=== PATIENT | male | born 1945 | race Caucasian/White ===

== ENCOUNTER 2016-09-19 10:16 | Emergency (ER) | payer MEDICARE, MEDICAID ==
[~2016-09-19 10:16] MED LIST: /FENO14TA PO; /FENO48TA OR; /GLIM4TA OR; /NITR4TASL SL; ACET-654 PO; ACET65TA OR; ALDA25TA2 OR; AMLO10TA OR; ASPI81TA83 OR; ATEN50TA2 OR; BACL-67 PO; BENA25TA4 PO; BISA10SU4 PR; BUTR5DIS2 TD; CARV3.12 PO; CIPR500T89 PO; CLOT1CRE6 TOP; COLA100C PO; CORE12.5 PO; CORE6.25 OR; COZA100T OR; DECADRON IV; DECADRON PO; DEXTPOW57 IV; DOC Q LACE PO; DOCU10ELUD PO; DRIS50002 PO; DULC10SU2 PR; DULC5TAB PO; Drisdol OR; ELIQ5TAB PO; FENO145T PO; FIBE625T PO; FISH OIL PO; FLEX10TA2 PO; FLUT1SPR2; FURO40TA2 OR; FURO80TA2 OR; GABA600T PO; GLUC1000 OR; GLUC1INJ2 SQ; GLUC40GE PO; HUMA100I3 SC; INFL10VL IV; INSUH10VL SC; INSUHUMDS SC; INSULADS SC; INSULANT SC; KEFL500C7 PO; KLOR1TAB73 PO; LASI40TA OR; LEVA250T PO; LEVI20TA39 PO; LORA10TA2 PO; LORT1ELX PO; LOSA50TA20 PO; MACR100C3 PO; MAG400TA PO; MAGN400T2 PO; MAGN400T5 PO; MAGN500C PO; MAGN500T2 OR; MAGNESIUM OXIDE PO; METF1000 PO; MEVA40TA PO; MIDAMOR PO; MILKSUS PO; MUCI600T34 PO; MULTCAP PO; NEUR600T PO; NITR0.4S SL; NITR4TASL SL; NORCOTAB PO; NORV5TAB OR; NORV5TAB PO; NOVOLOG100 MG/ML SC; NYST100024 TOP; OCEAN NASAL SPRAY; PENN1.5S2 TD; PRAV80TA2 PO; PRIL20CA OR; PROT1TAB2 PO; Remicade IV; SENO8.6T10 PO; SENO8.6T2 PO; SILD50TA OR; SLOWTAB OR; SPIR25TA2 OR; SPIR25TA2 PO; TEST100I IM; TYLE167L PO; TYLE325T5 PO; VESI10TA PO; VITA500047 PO; VITMTA PO; ZOFR20TA PO; ZOFR8TAB IV; [UNRECOGNIZED DRUG - CODE] PO; [UNRECOGNIZED DRUG - OTHER] IV; [UNRECOGNIZED DRUG - OTHER] OR; humalog SC
[2016-09-19 11:18] LABS: BASO % 0.2 % (0.0-1.0); EOS # 0.1 K/mm3 (0.0-0.50); LARGE UNSTAINED CELL # 0.1 K/mm3 (0.0-0.4); LARGE UNSTAINED CELL % 1.6 % (0.0-4.0); LYMPH # 1.6 K/mm3 (1.5-4.5); LYMPH % 20.8 % (24.0-44.0); MEAN CORPUSCULAR HEMOGLOBIN 29.5 pg (27.0-33.0); MEAN CORPUSCULAR HGB CONC 34.9 g/dl (32.0-36.5); MEAN CORPUSCULAR VOLUME 84.4 fl (80.0-96.0); MONO # 0.6 K/mm3 (0.0-0.8); MONO % 7.6 % (0.0-5.0); NEUTROPHILS # 5.2 K/mm3 (1.8-7.7); NEUTROPHILS % 68.8 % (36.0-66.0); PLATELET COUNT, AUTOMATED 245 k/mm3 (150-450); RED CELL DISTRIBUTION WIDTH 14.1 % (11.5-14.5); WHITE BLOOD COUNT 7.6 K/mm3 (4.0-10.0)
[2016-09-19 11:19] LABS: VENOUS BASE EXCESS -1.4 (-2.0-2.0); VENOUS O2 SATURATION 71.3 % (60.0-80.0); VENOUS PARTIAL PRESSURE CO2 50.1 mmHg (38.0-50.0); VENOUS PARTIAL PRESSURE O2 37.7 mmHg (30.0-50.0); VENOUS STANDARD HCO3 22.6 MEQ/L
[2016-09-19] MEDS ORDERED: ONDANSETRON 4MG/2ML VIAL (J2405) As Ordered ONE (11:25)
[2016-09-19 11:30] LABS: ALBUMIN 3.6 GM/DL (3.2-5.2); ALBUMIN/GLOBULIN RATIO 0.73 (1.00-1.93); BILIRUBIN,DIRECT 0.2 MG/DL (0.0-0.2); BILIRUBIN,TOTAL 0.5 MG/DL (0.2-1.0); CALCIUM LEVEL 9.7 MG/DL (8.8-10.2); CREATININE FOR GFR 1.41 MG/DL (0.70-1.30); GLOMERULAR FILTRATION RATE 52.9 (>42); POTASSIUM SERUM 3.9 MEQ/L (3.5-5.1); TOTAL PROTEIN 8.5 GM/DL (6.4-8.2)
--- NOTE | 2016-09-19 15:19 | EDDOCDS ---
Nurse's Notes [facility] Name: Calos Camacho Age: 70 yrs Sex: Male : 1945 Arrival Date: 09/19/2016 Time: 10:16 Bed 18 Private MD: Diagnosis: Other viral enteritis;Chronic kidney disease, stage 3 (moderate);Chronic atrial fibrillation Presentation: 09/19 10:24 Presenting complaint: EMS states: Nausea and vomiting for two days, daughter reports ck1 intermittent confusion. Adult Sepsis Screening: Patient has new or worsening altered mentation (1 point). Patient's respiratory rate is less than 22. Systolic blood pressure is greater than 100. Patient has a qSOFA score of 1- Negative Sepsis Screen. Suicide/Homicide risk assessment- the patient denies having any suicidal and/or homicidal ideations and does not present with any other emotional, behavioral or mental health complaints. Status: Patient is not a service line coordinator or dependent. Transition of care: patient was not received from another setting of care. 10:24 Acuity: GENIE Level 3 ck1 10:24 Method Of Arrival: Ambulance ck1 10:25 Care prior to arrival: Glucose check. 107. ck1 Triage Assessment: 10:34 General: Appears in no apparent distress, comfortable, Behavior is appropriate for age, ck1 cooperative. Pain: Location: abdomen Pain currently is 4 out of 10 on a pain scale. Quality of pain is described as crampy. Neurological: Level of Consciousness is awake, alert, obeys commands, Oriented to person, place, time. Respiratory: Respiratory effort is unlabored, Respiratory pattern is regular, symmetrical. GI: Abdomen is non- distended Reports nausea, vomiting. : Suprapubic catheter in place to gravity drainage Urine is cloudy. Derm: Skin is pink, warm & dry. Historical: - Allergies: SOO INHIBITORS (Hives); Carisoprodol ("didn't work, I got sick"); Hydrochlorothiazide (Unknown); Morphine (Hives); SULFA (SULFONAMIDES) (Hives); Adhesives; - Home Meds: 1. Eliquis 5 mg oral tab 1 tab 2 times per day 2. baclofen 20 mg Oral tab 1 tab 3 times per day 3. bisacodyl 10 mg Rectal supp 1 suppository four times weekly, Tues, Thurs, Sat, Sun 4. Dulcolax (bisacodyl) 5 mg Oral TbEC 1 tab once daily PRN 5. Coreg 3.125 mg Oral tab 1 tab 2 times per day 6. clotrimazole 1 % Topical crea 2 times per day to groin area 7. Doc-Q-Lace 100 mg oral cap 1 cap 2 times per day as needed 8. fenofibrate 150 mg oral cap 1 cap once daily 9. fluticasone 50 mcg/actuation nasal spsn 1 spray once daily 10. gabapentin 600 mg Oral tab 1 tab 3 times per day 11. Lantus 100 unit/mL Sub-Q soln 44 unit nightly 12. Lantus 100 unit/mL Sub-Q soln 39 unit daily 13. Humalog 100 unit/mL Sub-Q soln three times a day sliding scale 14. loratadine 10 mg Oral TbDL 1 tab once daily 15. magnesium oxide 400 mg Oral tab 800 mg twice a day 16. multivitamin Oral tab 1 tablet daily 17. Nitrostat 0.4 mg SL subl 1 tab every 5 minutes as needed 18. nystatin 100,000 unit/gram Topical powd 2 times per day 19. solifenacin 10 mg oral tab 1 tab once daily 20. spironolactone 25 mg Oral tab 1 tab once daily 21. Vitamin D [place] [address]78 unit weekly on Sundays - PMHx: Atrial Fib; Constipation, Chronic; Diabetes - IDDM: controlled; Hypercholesterolemia; Paraplegia, traumatic; Sleep Apnea w/ CPAP; spinal cord injury; Supraventricular Tachycardia; - PSHx: Back Surgery; Hernia repair; supra pubic catheter insertion; KNEE ARTHROSCOPY; Colon Resection; Hip Arthroplasty, Right; - The history from nurses notes was reviewed: and I agree with what is documented. - Social history: Smoking status: Patient states was never smoker of tobacco. No barriers to communication noted, The patient speaks fluent German, Speaks appropriately for age. - Family history: Not pertinent. - : The pt / caregiver states he / she is on anticoagulants: Eliquis Home medication list is obtained from a discharge med list. - Exposure Risk Screening:: None identified. - Immunization history:: All immunizations up-to-date. - Social history:: the patient is a non-smoker, the patient does not drink alcohol. Screenin:33 Screening information is obtained from the patient. Fall risk: At risk due to gait ck1 disturbance, The following interventions are performed due to a positive Fall Risk Screen: Fall Risk is added to Special Handling on the patient Summary Screen. A Fall Risk Bracelet was applied to the patient. Side Rails are placed in the up position. A Call Fenton is given with instruction to call for help when getting out of bed. Fall Alert bracelet is placed on the patient. Assistance ADL's: Requires assistance with meal preparation, this assistance is provided by family members, bathing, assistance is provided by family members, dressing, assistance is provided by family members, toileting, assistance is provided by family members, ambulation, assistance is provided by family members, housework, assistance is provided by family members, medication administration, assistance is provided by family members. Abuse/DV Screen: The patient / caregiver reports he/she is: not in a situation that causes fear, pain or injury. Nutritional screening: No deficits noted. Advance Directives: Currently, there is a health care proxy, Priscilla Llamas (dtr). home support is adequate. Assessment: 10:35 General: see triage note. ck1 11:30 General: Appears in no apparent distress, comfortable, Behavior is appropriate for age, ck1 cooperative. Pain: Location: abdomen Pain currently is 4 out of 10 on a pain scale. Quality of pain is described as crampy. Neurological: Level of Consciousness is awake, alert, obeys commands, Oriented to person, place, time. Respiratory: Respiratory effort is unlabored, Respiratory pattern is regular, symmetrical. GI: Abdomen is non- distended Bowel sounds present X 4 quads. Abd is soft and non tender X 4 quads. : Suprapubic catheter in place to gravity drainage Urine is cloudy. Derm: Skin is pink, warm & dry. 12:26 Reassessment: Patient appears in no apparent distress at this time. ck1 13:44 General: Appears in no apparent distress, comfortable, Behavior is appropriate for age, ms18 cooperative, pleasant. General: Pt in no acute distress. Family at bedside. Will continue to monitor pt. Pain: Denies pain. Neurological: Level of Consciousness is awake, alert, obeys commands. Respiratory: Airway is patent Respiratory effort is even, unlabored. Derm: Skin is pink, warm & dry. 14:44 Reassessment: Patient appears in no apparent distress at this time. ck1 15:02 General: Appears in no apparent distress, comfortable, Behavior is appropriate for age, ck1 cooperative. Pain: Location: abdomen Pain currently is 3 out of 10 on a pain scale. Quality of pain is described as tender. Neurological: Level of Consciousness is awake, alert, obeys commands, Oriented to person, place, time. Respiratory: Respiratory effort is unlabored, Respiratory pattern is regular, symmetrical. GI: Denies nausea, vomiting. Derm: Skin is pink, warm & dry. Vital Signs: 10:22 BP 194 / 88 (auto/); ck1 10:22 BP 194 / 88 (auto/); ck1 10:23 BP 184 / 86 (auto/); ck1 10:33 BP 194 / 88; Pulse 67; Resp 18; Temp 98.3(O); Pulse Ox 97% on R/A; Weight 109.32 kg ck1 (R); Height 5 ft. 6 in. (167.64 cm) (R); Pain 3/10; 11:20 Pulse 62 MON; Pulse Ox 98% ; ck1 11:21 Pulse 78 MON; Pulse Ox 96% ; ck1 11:21 Pulse 78 MON; Pulse Ox 96% ; ck1 11:22 BP 166 / 81 (auto/); ck1 11:22 Pulse 74 MON; Pulse Ox 96% ; ck1 11:52 Pulse 66 MON; Pulse Ox 96% ; ck1 11:53 BP 176 / 85 (auto/); ck1 11:53 Pulse 68 MON; Pulse Ox 95% ; ck1 11:53 BP 176 / 85 (auto/); ck1 12:23 BP 148 / 70 (auto/); ck1 12:23 Pulse 70 MON; Pulse Ox 96% ; ck1 12:53 BP 161 / 72 (auto/); ck1 12:53 Pulse 80 MON; Pulse Ox 95% ; ck1 13:07 BP 166 / 78 (auto/); ck1 13:07 Pulse 96 MON; Pulse Ox 96% ; ck1 13:08 BP 186 / 82 (auto/); ck1 13:08 Pulse 96 MON; Pulse Ox 96% ; ck1 13:10 BP 166 / 78 Supine; Pulse 99; ck1 13:10 BP 186 / 82 Sitting; Pulse 96; ck1 13:23 BP 162 / 80 (auto/); ms18 13:38 Pulse 80 MON; Pulse Ox 96% ; ms18 13:53 Pulse 88 MON; Pulse Ox 95% ; ck1 13:53 BP 165 / 72 (auto/); ck1 14:23 BP 167 / 77 (auto/); ck1 14:23 Pulse 82 MON; Pulse Ox 95% ; ck1 15:03 BP 183 / 82; Pulse 101; Resp 18; Temp 96.6(O); Pulse Ox 95% on R/A; Pain 3/10; ck1 10:33 Body Mass Index 38.90 (109.32 kg, 167.64 cm) ck1 Vitals: 10:33 Log In Time N/A - ambulance arrival. ck1 ED Course: 10:17 Patient visited by Louann Pineda, Plate Straightener. deg 10:17 Yesenia Whitaker,RN is Primary Nurse. deg 10:17 Gina Sorenson,RN is Primary Nurse. deg 10:17 Patient moved to Waiting deg 10:17 Patient moved to 18 deg 10:25 Triage Initiated ck1 10:34 The patient / caregiver is instructed regarding the plan of care and ED course. ck1 10:52 Patient visited by Gina Sorenson RN. ck1 10:52 Inserted saline lock: 20 gauge in left antecubital area and blood collected. The ck1 patient tolerated the procedure well. 10:59 Shemar Plascencia MD is Attending Physician. pc 11:10 Patient visited by Shemar Plascencia MD. pc 11:14 CBC with Diff Sent. ck1 11:14 MED Profile Sent. ck1 11:14 Liver Profile Sent. ck1 11:14 Lipase Sent. ck1 11:29 Patient visited by Gina Sorenson RN. ck1 11:56 Patient visited by Gina Sorenson,DANNA. ck1 12:21 [facility] Payment Agreement was scanned into [employer] and attached to record. jp5 12:24 Patient visited by Gina Sorenson RN. ck1 12:57 Patient visited by Gina Sorenson RN. ck1 13:09 Patient visited by Gina Sorenson RN. ck1 13:44 Patient visited by Jennifer Whitaker RN. ms18 14:30 Maliha Tiwari PA-C is Referral Physician. pc 15:01 Discontinued lock intact, bleeding controlled, pressure dressing applied, No ck1 redness/swelling at site. No procedures done that require assistance. Administered Medications: 11:29 Drug: Ondansetron 4 mg [ondansetron HCl 2 mg/mL intravenous solution (2 mL)] Route: ck1 IVP; Site: left antecubital; 11:30 Drug: NS 0.9% 1000 ml [sodium chloride 0.9 % intravenous solution] Route: IV; Rate: ck1 bolus; Site: left antecubital; 13:09 Follow up: IV Status: Completed infusion ck1 Order Results: Lab Order: CBC with Diff; SPEC'M 09/19/16 10:48 Test: WHITE BLOOD COUNT; Value: 7.6; Range: 4.0-10.0; Units: K/mm3; Status: F Test: RED BLOOD COUNT; Value: 5.90; Range: 4.30-6.10; Units: M/mm3; Status: F Test: HEMOGLOBIN; Value: 17.4; Range: 14.0-18.0; Units: g/dl; Status: F Test: HEMATOCRIT; Value: 49.8; Range: 42.0-52.0; Units: %; Status: F Test: MEAN CORPUSCULAR VOLUME; Value: 84.4; Range: 80.0-96.0; Units: fl; Status: F Test: MEAN CORPUSCULAR HEMOGLOBIN; Value: 29.5; Range: 27.0-33.0; Units: pg; Status: F Test: MEAN CORPUSCULAR HGB CONC; Value: 34.9; Range: 32.0-36.5; Units: g/dl; Status: F Test: RED CELL DISTRIBUTION WIDTH; Value: 14.1; Range: 11.5-14.5; Units: %; Status: F Test: PLATELET COUNT, AUTOMATED; Value: 245; Range: 150-450; Units: k/mm3; Status: F Test: NEUTROPHILS %; Value: 68.8; Range: 36.0-66.0; Abnormal: Above high normal; Units: %; Status: F Test: LYMPH %; Value: 20.8; Range: 24.0-44.0; Abnormal: Below low normal; Units: %; Status: F Test: MONO %; Value: 7.6; Range: 0.0-5.0; Abnormal: Above high normal; Units: %; Status: F Test: EOS %; Value: 1.0; Range: 0.0-3.0; Units: %; Status: F Test: BASO %; Value: 0.2; Range: 0.0-1.0; Units: %; Status: F Test: LARGE UNSTAINED CELL %; Value: 1.6; Range: 0.0-4.0; Units: %; Status: F Test: NEUTROPHILS #; Value: 5.2; Range: 1.8-7.7; Units: K/mm3; Status: F Test: LYMPH #; Value: 1.6; Range: 1.5-4.5; Units: K/mm3; Status: F Test: MONO #; Value: 0.6; Range: 0.0-0.8; Units: K/mm3; Status: F Test: EOS #; Value: 0.1; Range: 0.0-0.50; Units: K/mm3; Status: F Test: BASO #; Value: 0.0; Range: 0.0-0.2; Units: K/mm3; Status: F Test: LARGE UNSTAINED CELL #; Value: 0.1; Range: 0.0-0.4; Units: K/mm3; Status: F Lab Order: MED Profile; SPEC'M 09/19/16 10:48 Test: GLUCOSE, FASTING; Value: 134; Range: 83-110; Abnormal: Above high normal; Units: MG/DL; Status: F Test: BLOOD UREA NITROGEN; Value: 25; Range: 7-18; Abnormal: Above high normal; Units: MG/DL; Status: F Test: CREATININE FOR GFR; Value: 1.41; Range: 0.70-1.30; Abnormal: Above high normal; Units: MG/DL; Status: F Test: GLOMERULAR FILTRATION RATE; Value: 52.9; Range: >42; Status: F Test: SODIUM LEVEL; Value: 132; Range: 136-145; Abnormal: Below low normal; Units: MEQ/L; Status: F Test: POTASSIUM SERUM; Value: 3.9; Range: 3.5-5.1; Units: MEQ/L; Status: F Test: CHLORIDE LEVEL; Value: 94; Range: 98-107; Abnormal: Below low normal; Units: MEQ/L; Status: F Test: CARBON DIOXIDE LEVEL; Value: 29; Range: 21-32; Units: MEQ/L; Status: F Test: ANION GAP; Value: 9; Range: 8-16; Units: MEQ/L; Status: F Test: CALCIUM LEVEL; Value: 9.7; Range: 8.8-10.2; Units: MG/DL; Status: F Test Note: ; Units are mL/min/1.73 m2 Chronic Kidney Disease Staging per NKF: Stage I & II GFR >=60 Normal to Mildly Decreased Stage III GFR 30-59 Moderately Decreased Stage IV GFR 15-29 Severely Decreased Stage V GFR <15 Very Little GFR Left ESRD GFR <15 on COMMERCIAL [employer]IST Lab Order: Liver Profile; SPEC'09/19/16 10:48 Test: AST/SGOT; Value: 24; Range: 15-37; Units: U/L; Status: F Test: ALT/SGPT; Value: 26; Range: 12-78; Units: U/L; Status: F Test: ALKALINE PHOSPHATASE; Value: 96; Range: 45-117; Units: U/L; Status: F Test: BILIRUBIN,TOTAL; Value: 0.5; Range: 0.2-1.0; Units: MG/DL; Status: F Test: BILIRUBIN,DIRECT; Value: 0.2; Range: 0.0-0.2; Units: MG/DL; Status: F Test: TOTAL PROTEIN; Value: 8.5; Range: 6.4-8.2; Abnormal: Above high normal; Units: GM/DL; Status: F Test: ALBUMIN; Value: 3.6; Range: 3.2-5.2; Units: GM/DL; Status: F Test: ALBUMIN/GLOBULIN RATIO; Value: 0.73; Range: 1.00-1.93; Abnormal: Below low normal; Status: F Lab Order: Lipase; SPEC09/19/16 10:48 Test: LIPASE; Value: 131; Range: 73-393; Units: U/L; Status: F Lab Order: Venous Blood Gas (large pea green tube on ice); SPEC'M 01/15/17 10:48 Test: VENOUS PH; Value: 7.324; Range: 7.330-7.430; Abnormal: Below low normal; Units: UNITS; Status: F Test: VENOUS PARTIAL PRESSURE CO2; Value: 50.1; Range: 38.0-50.0; Abnormal: Above high normal; Units: mmHg; Status: F Test: VENOUS PARTIAL PRESSURE O2; Value: 37.7; Range: 30.0-50.0; Units: mmHg; Status: F Test: VENOUS TOTAL CO2; Value: 27.0; Range: 24.0-28.0; Units: MEQ/L; Status: F Test: VENOUS HCO3; Value: 25.5; Range: 23.0-27.0; Units: MEQ/L; Status: F Test: VENOUS BASE EXCESS; Value: -1.4; Range: -2.0-2.0; Status: F Test: VENOUS STANDARD HCO3; Value: 22.6; Units: MEQ/L; Status: F Test: VENOUS O2 SATURATION; Value: 71.3; Range: 60.0-80.0; Units: %; Status: F Outcome: 14:30 Discharge ordered by Provider. 15:02 Discharge Assessment: Patient awake, alert and oriented x 3. No cognitive and/or ck1 functional deficits noted. Patient verbalized understanding of disposition instructions. patient administered narcotics - no. The following High Risk Discharge criteria are identified: None. Discharged to home with family, via [facility]. Condition: stable. Discharge instructions given to patient, Instructed on discharge instructions, follow up and referral plans. medication usage, Demonstrated understanding of instructions, medications, Pt was receptive of discharge instructions/ teaching. Prescriptions given X 1. No special radiology studies were completed. Property :Personal belongings accompany Pt. 15:18 Patient left the ED. ck1 Signatures: Shemar Plascencia MD MD pc Murray, Denise, Plate Straightener Unit deg Gina SorensonRN RN ck1 Jennifer Whitaker RN RN ms18 Radha Curiel 5 MTDD
--- NOTE | 2016-09-19 15:19 | EDDOCDS ---
Physician Documentation [facility] Name: Calos Camacho Age: 70 yrs Sex: Male : 1945 Arrival Date: 09/19/2016 Time: 10:16 Bed 18 Private MD: Disposition: 09/19 14:27 Critical Care: Critical care not applicable. pc Disposition: 09/19/16 14:30 Discharged to Home/Self Care. Impression: Other viral enteritis, Chronic kidney disease, stage 3 (moderate), Chronic atrial fibrillation. - Condition is Stable. - Discharge Instructions: Clear Liquid Diet, Viral Gastroenteritis. - Prescriptions for ZOFRAN ODT 4 mg - dissolve 1 tablet by ORAL route 4 times per day As needed do not chew, do not swallow whole; 10 tablet. - Medication Reconciliation, Local Pharmacy Hours form. - Follow up: Maliha Tiwari PA-C; When: 2 - 3 days; Reason: Recheck today's complaints, Continuance of care. - Problem is new. - Symptoms have improved. HPI: 12:32 This 70 yrs old Male presents to ER via Ambulance with complaints of pc Abdominal Pain. 12:32 The history is obtained from the patient, the patient's family/friend. The patient pc presents with abdominal pain, vomiting. The symptoms began suddenly 3 days ago. There have been multiple episodes. He developed nausea and vomiting with abdominal cramping 3 days ago and has been unable to tolerate any fluids and has been vomiting up his pills. He was too weak to stand to transfer this morning and has been confused at times, per his daughter. He has not had any fevers or chills, diarrhea or constipation, Resp or symptoms. The patient has experienced similar episodes in the past, a few times. The patient has been recently been admitted at [facility], was discharged last month, for a UTI. Historical: - Allergies: SOO INHIBITORS (Hives); Carisoprodol ("didn't work, I got sick"); Hydrochlorothiazide (Unknown); Morphine (Hives); SULFA (SULFONAMIDES) (Hives); Adhesives; - Home Meds: 1. Eliquis 5 mg oral tab 1 tab 2 times per day 2. baclofen 20 mg Oral tab 1 tab 3 times per day 3. bisacodyl 10 mg Rectal supp 1 suppository four times weekly, Tues, Thurs, Sat, Sun 4. Dulcolax (bisacodyl) 5 mg Oral TbEC 1 tab once daily PRN 5. Coreg 3.125 mg Oral tab 1 tab 2 times per day 6. clotrimazole 1 % Topical crea 2 times per day to groin area 7. Doc-Q-Lace 100 mg oral cap 1 cap 2 times per day as needed 8. fenofibrate 150 mg oral cap 1 cap once daily 9. fluticasone 50 mcg/actuation nasal spsn 1 spray once daily 10. gabapentin 600 mg Oral tab 1 tab 3 times per day 11. Lantus 100 unit/mL Sub-Q soln 44 unit nightly 12. Lantus 100 unit/mL Sub-Q soln 39 unit daily 13. Humalog 100 unit/mL Sub-Q soln three times a day sliding scale 14. loratadine 10 mg Oral TbDL 1 tab once daily 15. magnesium oxide 400 mg Oral tab 800 mg twice a day 16. multivitamin Oral tab 1 tablet daily 17. Nitrostat 0.4 mg SL subl 1 tab every 5 minutes as needed 18. nystatin 100,000 unit/gram Topical powd 2 times per day 19. solifenacin 10 mg oral tab 1 tab once daily 20. spironolactone 25 mg Oral tab 1 tab once daily 21. Vitamin D Oral [address]1976 unit weekly on Sundays - PMHx: Atrial Fib; Constipation, Chronic; Diabetes - IDDM: controlled; Hypercholesterolemia; Paraplegia, traumatic; Sleep Apnea w/ CPAP; spinal cord injury; Supraventricular Tachycardia; - PSHx: Back Surgery; Hernia repair; supra pubic catheter insertion; KNEE ARTHROSCOPY; Colon Resection; Hip Arthroplasty, Right; - The history from nurses notes was reviewed: and I agree with what is documented. - Social history: Smoking status: Patient states was never smoker of tobacco. No barriers to communication noted, The patient speaks fluent Luxembourgish, Speaks appropriately for age. - Family history: Not pertinent. - : The pt / caregiver states he / she is on anticoagulants: Eliquis Home medication list is obtained from a discharge med list. - Exposure Risk Screening:: None identified. - Immunization history:: All immunizations up-to-date. - Social history:: the patient is a non-smoker, the patient does not drink alcohol. ROS: 12:32 All systems are negative except if listed. The constitutional, cardiovascular, pc respiratory and neurological components are also addressed in the HPI. Exam: 12:32 General Appearance: alert, no acute distress. pc 12:32 ENT: ear, nose and throat normal, Dry muc. membranes 12:32 Neck: The exam reveals no acute abnormalities. ROM is normal and painless. No nuchal rigidity is noted.. 12:32 Respiratory: no respiratory distress, normal breath sounds, chest non-tender. 12:32 Cardiovascular: regular pulse rate, regular heart rhythm, normal heart sounds, equal and full pulses bilaterally. 12:32 Abdomen: soft, non-tender, no organomegaly, normal bowel sounds. 12:32 Back: normal inspection. 12:32 Skin: skin color is normal, warm, dry. 12:32 Extremities: The extremities have a grossly normal appearance, are non-tender, without acute ROM abnormalities. 12:32 Neuro: oriented x 3, cranial nerves normal as tested. Vital Signs: 10:22 BP 194 / 88 (auto/); ck1 10:22 BP 194 / 88 (auto/); ck1 10:23 BP 184 / 86 (auto/); ck1 10:33 BP 194 / 88; Pulse 67; Resp 18; Temp 98.3(O); Pulse Ox 97% on R/A; Weight 109.32 kg / ck1 241.01 lbs (R); Height 5 ft. 6 in. (167.64 cm) (R); Pain 3/10; 11:20 Pulse 62 MON; Pulse Ox 98% ; ck1 11:21 Pulse 78 MON; Pulse Ox 96% ; ck1 11:21 Pulse 78 MON; Pulse Ox 96% ; ck1 11:22 BP 166 / 81 (auto/); ck1 11:22 Pulse 74 MON; Pulse Ox 96% ; ck1 11:52 Pulse 66 MON; Pulse Ox 96% ; ck1 11:53 BP 176 / 85 (auto/); ck1 11:53 Pulse 68 MON; Pulse Ox 95% ; ck1 11:53 BP 176 / 85 (auto/); ck1 12:23 BP 148 / 70 (auto/); ck1 12:23 Pulse 70 MON; Pulse Ox 96% ; ck1 12:53 BP 161 / 72 (auto/); ck1 12:53 Pulse 80 MON; Pulse Ox 95% ; ck1 13:07 BP 166 / 78 (auto/); ck1 13:07 Pulse 96 MON; Pulse Ox 96% ; ck1 13:08 BP 186 / 82 (auto/); ck1 13:08 Pulse 96 MON; Pulse Ox 96% ; ck1 13:10 BP 166 / 78 Supine; Pulse 99; ck1 13:10 BP 186 / 82 Sitting; Pulse 96; ck1 13:23 BP 162 / 80 (auto/); ms18 13:38 Pulse 80 MON; Pulse Ox 96% ; ms18 13:53 Pulse 88 MON; Pulse Ox 95% ; ck1 13:53 BP 165 / 72 (auto/); ck1 14:23 BP 167 / 77 (auto/); ck1 14:23 Pulse 82 MON; Pulse Ox 95% ; ck1 15:03 BP 183 / 82; Pulse 101; Resp 18; Temp 96.6(O); Pulse Ox 95% on R/A; Pain 3/10; ck1 10:33 Body Mass Index 38.90 (109.32 kg, 167.64 cm) ck1 MDM: 11:11 IV Saline Lock ordered. pc 11:11 Fueler/Pulse Ox/q 30 min VS ordered. pc 11:12 CBC with Diff Ordered. EDMS 11:12 MED Profile Ordered. EDMS 11:12 Liver Profile Ordered. EDMS 11:12 Lipase Ordered. EDMS 11:12 Venous Blood Gas (large pea green tube on ice) Ordered. EDMS 11:16 NS 0.9% 1000 ml IV at bolus once ordered. pc 11:16 Ondansetron 4 mg IVP once ordered. pc 11:50 CBC with Diff Reviewed. pc 11:50 MED Profile Reviewed. pc 11:50 Liver Profile Reviewed. pc 11:50 Venous Blood Gas (large pea green tube on ice) Reviewed. pc 11:50 Lipase Reviewed. pc 11:50 Orthostatic VS ordered. pc 12:21 [facility] [place] [facility] Payment Agreement was scanned into [employer] and attached to record. jp5 12:21 Financial registration complete. jp5 12:32 Differential diagnosis: Gastroenteritis weakness. Plan: labs, IVF. pc 13:50 Urine Culture Ordered. EDMS 14:27 Data reviewed: old medical records, vital signs, nurses notes, lab test results. Test pc interpretation: LAB - all labs as ordered have been reviewed, interpreted and considered in the overall management of the clinical presentation;. The patient has been re-examined and re-evaluated. The patient's symptoms have markedly improved after treatment. Disposition: The historical points, examination findings, and any diagnostic results supporting the provided diagnosis, were discussed with the patient or legal guardian. The need for outpatient follow up with the provider listed on their discharge instructions was discussed. They were encouraged to return to [facility], or the nearest ED, if symptoms worsen/persist, or for any other questions/concerns. Administered Medications: 11:29 Drug: Ondansetron 4 mg [ondansetron HCl 2 mg/mL intravenous solution (2 mL)] Route: ck1 IVP; Site: left antecubital; 11:30 Drug: NS 0.9% 1000 ml [sodium chloride 0.9 % intravenous solution] Route: IV; Rate: ck1 bolus; Site: left antecubital; 13:09 Follow up: IV Status: Completed infusion ck1 Signatures: Dispatcher [employer] Shemar Powell MD MD pc Kim-Ashcraft, Connie, RN RN ck1 Radha Curiel jp5 The chart was reviewed and I authenticate all verbal orders and agree with the evaluation and treatment provided.Attachments: 12:21 [facility] Payment Agreement jp5 [email or web address]
--- NOTE | 2016-09-21 16:19 | EDDOCDS ---
Physician Documentation [facility] Name: Calos Camacho Age: 70 yrs Sex: Male : 1945 Arrival Date: 09/19/2016 Time: 10:16 Bed 18 Private MD: Disposition: 09/19 14:27 Critical Care: Critical care not applicable. pc Disposition: 09/19/16 14:30 Discharged to Home/Self Care. Impression: Other viral enteritis, Chronic kidney disease, stage 3 (moderate), Chronic atrial fibrillation. - Condition is Stable. - Discharge Instructions: Clear Liquid Diet, Viral Gastroenteritis. - Prescriptions for ZOFRAN ODT 4 mg - dissolve 1 tablet by ORAL route 4 times per day As needed do not chew, do not swallow whole; 10 tablet. - Medication Reconciliation, Local Pharmacy Hours form. - Follow up: Maliha Tiwari PA-C; When: 2 - 3 days; Reason: Recheck today's complaints, Continuance of care. - Problem is new. - Symptoms have improved. HPI: 12:32 This 70 yrs old Male presents to ER via Ambulance with complaints of pc Abdominal Pain. 12:32 The history is obtained from the patient, the patient's family/friend. The patient pc presents with abdominal pain, vomiting. The symptoms began suddenly 3 days ago. There have been multiple episodes. He developed nausea and vomiting with abdominal cramping 3 days ago and has been unable to tolerate any fluids and has been vomiting up his pills. He was too weak to stand to transfer this morning and has been confused at times, per his daughter. He has not had any fevers or chills, diarrhea or constipation, Resp or symptoms. The patient has experienced similar episodes in the past, a few times. The patient has been recently been admitted at [facility], was discharged last month, for a UTI. Historical: - Allergies: SOO INHIBITORS (Hives); Carisoprodol ("didn't work, I got sick"); Hydrochlorothiazide (Unknown); Morphine (Hives); SULFA (SULFONAMIDES) (Hives); Adhesives; - Home Meds: 1. Eliquis 5 mg oral tab 1 tab 2 times per day 2. baclofen 20 mg Oral tab 1 tab 3 times per day 3. bisacodyl 10 mg Rectal supp 1 suppository four times weekly, Tues, Thurs, Sat, Sun 4. Dulcolax (bisacodyl) 5 mg Oral TbEC 1 tab once daily PRN 5. Coreg 3.125 mg Oral tab 1 tab 2 times per day 6. clotrimazole 1 % Topical crea 2 times per day to groin area 7. Doc-Q-Lace 100 mg oral cap 1 cap 2 times per day as needed 8. fenofibrate 150 mg oral cap 1 cap once daily 9. fluticasone 50 mcg/actuation nasal spsn 1 spray once daily 10. gabapentin 600 mg Oral tab 1 tab 3 times per day 11. Lantus 100 unit/mL Sub-Q soln 44 unit nightly 12. Lantus 100 unit/mL Sub-Q soln 39 unit daily 13. Humalog 100 unit/mL Sub-Q soln three times a day sliding scale 14. loratadine 10 mg Oral TbDL 1 tab once daily 15. magnesium oxide 400 mg Oral tab 800 mg twice a day 16. multivitamin Oral tab 1 tablet daily 17. Nitrostat 0.4 mg SL subl 1 tab every 5 minutes as needed 18. nystatin 100,000 unit/gram Topical powd 2 times per day 19. solifenacin 10 mg oral tab 1 tab once daily 20. spironolactone 25 mg Oral tab 1 tab once daily 21. Vitamin D Oral 48731 unit weekly on Sundays - PMHx: Atrial Fib; Constipation, Chronic; Diabetes - IDDM: controlled; Hypercholesterolemia; Paraplegia, traumatic; Sleep Apnea w/ CPAP; spinal cord injury; Supraventricular Tachycardia; - PSHx: Back Surgery; Hernia repair; supra pubic catheter insertion; KNEE ARTHROSCOPY; Colon Resection; Hip Arthroplasty, Right; - The history from nurses notes was reviewed: and I agree with what is documented. - Social history: Smoking status: Patient states was never smoker of tobacco. No barriers to communication noted, The patient speaks fluent Swedish, Speaks appropriately for age. - Family history: Not pertinent. - : The pt / caregiver states he / she is on anticoagulants: Eliquis Home medication list is obtained from a discharge med list. - Exposure Risk Screening:: None identified. - Immunization history:: All immunizations up-to-date. - Social history:: the patient is a non-smoker, the patient does not drink alcohol. ROS: 12:32 All systems are negative except if listed. The constitutional, cardiovascular, pc respiratory and neurological components are also addressed in the HPI. Exam: 12:32 General Appearance: alert, no acute distress. pc 12:32 ENT: ear, nose and throat normal, Dry muc. membranes 12:32 Neck: The exam reveals no acute abnormalities. ROM is normal and painless. No nuchal rigidity is noted.. 12:32 Respiratory: no respiratory distress, normal breath sounds, chest non-tender. 12:32 Cardiovascular: regular pulse rate, regular heart rhythm, normal heart sounds, equal and full pulses bilaterally. 12:32 Abdomen: soft, non-tender, no organomegaly, normal bowel sounds. 12:32 Back: normal inspection. 12:32 Skin: skin color is normal, warm, dry. 12:32 Extremities: The extremities have a grossly normal appearance, are non-tender, without acute ROM abnormalities. 12:32 Neuro: oriented x 3, cranial nerves normal as tested. Vital Signs: 10:22 BP 194 / 88 (auto/); ck1 10:22 BP 194 / 88 (auto/); ck1 10:23 BP 184 / 86 (auto/); ck1 10:33 BP 194 / 88; Pulse 67; Resp 18; Temp 98.3(O); Pulse Ox 97% on R/A; Weight 109.32 kg / ck1 241.01 lbs (R); Height 5 ft. 6 in. (167.64 cm) (R); Pain 3/10; 11:20 Pulse 62 MON; Pulse Ox 98% ; ck1 11:21 Pulse 78 MON; Pulse Ox 96% ; ck1 11:21 Pulse 78 MON; Pulse Ox 96% ; ck1 11:22 BP 166 / 81 (auto/); ck1 11:22 Pulse 74 MON; Pulse Ox 96% ; ck1 11:52 Pulse 66 MON; Pulse Ox 96% ; ck1 11:53 BP 176 / 85 (auto/); ck1 11:53 Pulse 68 MON; Pulse Ox 95% ; ck1 11:53 BP 176 / 85 (auto/); ck1 12:23 BP 148 / 70 (auto/); ck1 12:23 Pulse 70 MON; Pulse Ox 96% ; ck1 12:53 BP 161 / 72 (auto/); ck1 12:53 Pulse 80 MON; Pulse Ox 95% ; ck1 13:07 BP 166 / 78 (auto/); ck1 13:07 Pulse 96 MON; Pulse Ox 96% ; ck1 13:08 BP 186 / 82 (auto/); ck1 13:08 Pulse 96 MON; Pulse Ox 96% ; ck1 13:10 BP 166 / 78 Supine; Pulse 99; ck1 13:10 BP 186 / 82 Sitting; Pulse 96; ck1 13:23 BP 162 / 80 (auto/); ms18 13:38 Pulse 80 MON; Pulse Ox 96% ; ms18 13:53 Pulse 88 MON; Pulse Ox 95% ; ck1 13:53 BP 165 / 72 (auto/); ck1 14:23 BP 167 / 77 (auto/); ck1 14:23 Pulse 82 MON; Pulse Ox 95% ; ck1 15:03 BP 183 / 82; Pulse 101; Resp 18; Temp 96.6(O); Pulse Ox 95% on R/A; Pain 3/10; ck1 10:33 Body Mass Index 38.90 (109.32 kg, 167.64 cm) ck1 MDM: 11:11 IV Saline Lock ordered. pc 11:11 Taxicab Driver/Pulse Ox/q 30 min VS ordered. pc 11:12 CBC with Diff Ordered. EDMS 11:12 MED Profile Ordered. EDMS 11:12 Liver Profile Ordered. EDMS 11:12 Lipase Ordered. EDMS 11:12 Venous Blood Gas (large pea green tube on ice) Ordered. EDMS 11:16 NS 0.9% 1000 ml IV at bolus once ordered. pc 11:16 Ondansetron 4 mg IVP once ordered. pc 11:50 CBC with Diff Reviewed. pc 11:50 MED Profile Reviewed. pc 11:50 Liver Profile Reviewed. pc 11:50 Venous Blood Gas (large pea green tube on ice) Reviewed. pc 11:50 Lipase Reviewed. pc 11:50 Orthostatic VS ordered. pc 12:21 [facility] Payment Agreement was scanned into [employer] and attached to record. jp5 12:21 Financial registration complete. jp5 12:32 Differential diagnosis: Gastroenteritis weakness. Plan: labs, IVF. pc 13:50 Urine Culture Ordered. EDMS 14:27 Data reviewed: old medical records, vital signs, nurses notes, lab test results. Test pc interpretation: LAB - all labs as ordered have been reviewed, interpreted and considered in the overall management of the clinical presentation;. The patient has been re-examined and re-evaluated. The patient's symptoms have markedly improved after treatment. Disposition: The historical points, examination findings, and any diagnostic results supporting the provided diagnosis, were discussed with the patient or legal guardian. The need for outpatient follow up with the provider listed on their discharge instructions was discussed. They were encouraged to return to [facility], or the nearest ED, if symptoms worsen/persist, or for any other questions/concerns. 09/20 14:31 PCR was scanned into [employer] and attached to record. gb Administered Medications: 09/19 11:29 Drug: Ondansetron 4 mg [ondansetron HCl 2 mg/mL intravenous solution (2 mL)] Route: ck1 IVP; Site: left antecubital; 11:30 Drug: NS 0.9% 1000 ml [sodium chloride 0.9 % intravenous solution] Route: IV; Rate: ck1 bolus; Site: left antecubital; 13:09 Follow up: IV Status: Completed infusion ck1 Signatures: Dispatcher MedC3 Metrics EDMS Shemar Plascencia MD MD pc Barnhardt, Gloria, Reg Reg Gina LomasRN RN ck1 Radha Curiel jp5 The chart was reviewed and I authenticate all verbal orders and agree with the evaluation and treatment provided.Attachments: 12:21 [facility] Payment Agreement jp5 Chart Complete MTDD
--- NOTE | 2016-09-21 16:19 | EDDOCDS ---
Physician Documentation [facility] Name: Calos Camacho Age: 70 yrs Sex: Male : 1945 Arrival Date: 09/19/2016 Time: 10:16 Bed 18 Private MD: Disposition: 09/19 14:27 Critical Care: Critical care not applicable. pc Disposition: 09/19/16 14:30 Discharged to Home/Self Care. Impression: Other viral enteritis, Chronic kidney disease, stage 3 (moderate), Chronic atrial fibrillation. - Condition is Stable. - Discharge Instructions: Clear Liquid Diet, Viral Gastroenteritis. - Prescriptions for ZOFRAN ODT 4 mg - dissolve 1 tablet by ORAL route 4 times per day As needed do not chew, do not swallow whole; 10 tablet. - Medication Reconciliation, Local Pharmacy Hours form. - Follow up: Maliha Tiwari PA-C; When: 2 - 3 days; Reason: Recheck today's complaints, Continuance of care. - Problem is new. - Symptoms have improved. HPI: 12:32 This 70 yrs old Male presents to ER via Ambulance with complaints of pc Abdominal Pain. 12:32 The history is obtained from the patient, the patient's family/friend. The patient pc presents with abdominal pain, vomiting. The symptoms began suddenly 3 days ago. There have been multiple episodes. He developed nausea and vomiting with abdominal cramping 3 days ago and has been unable to tolerate any fluids and has been vomiting up his pills. He was too weak to stand to transfer this morning and has been confused at times, per his daughter. He has not had any fevers or chills, diarrhea or constipation, Resp or symptoms. The patient has experienced similar episodes in the past, a few times. The patient has been recently been admitted at [facility], was discharged last month, for a UTI. Historical: - Allergies: SOO INHIBITORS (Hives); Carisoprodol ("didn't work, I got sick"); Hydrochlorothiazide (Unknown); Morphine (Hives); SULFA (SULFONAMIDES) (Hives); Adhesives; - Home Meds: 1. Eliquis 5 mg oral tab 1 tab 2 times per day 2. baclofen 20 mg Oral tab 1 tab 3 times per day 3. bisacodyl 10 mg Rectal supp 1 suppository four times weekly, Tues, Thurs, Sat, Sun 4. Dulcolax (bisacodyl) 5 mg Oral TbEC 1 tab once daily PRN 5. Coreg 3.125 mg Oral tab 1 tab 2 times per day 6. clotrimazole 1 % Topical crea 2 times per day to groin area 7. Doc-Q-Lace 100 mg oral cap 1 cap 2 times per day as needed 8. fenofibrate 150 mg oral cap 1 cap once daily 9. fluticasone 50 mcg/actuation nasal spsn 1 spray once daily 10. gabapentin 600 mg Oral tab 1 tab 3 times per day 11. Lantus 100 unit/mL Sub-Q soln 44 unit nightly 12. Lantus 100 unit/mL Sub-Q soln 39 unit daily 13. Humalog 100 unit/mL Sub-Q soln three times a day sliding scale 14. loratadine 10 mg Oral TbDL 1 tab once daily 15. magnesium oxide 400 mg Oral tab 800 mg twice a day 16. multivitamin Oral tab 1 tablet daily 17. Nitrostat 0.4 mg SL subl 1 tab every 5 minutes as needed 18. nystatin 100,000 unit/gram Topical powd 2 times per day 19. solifenacin 10 mg oral tab 1 tab once daily 20. spironolactone 25 mg Oral tab 1 tab once daily 21. Vitamin D Oral 10786 unit weekly on Sundays - PMHx: Atrial Fib; Constipation, Chronic; Diabetes - IDDM: controlled; Hypercholesterolemia; Paraplegia, traumatic; Sleep Apnea w/ CPAP; spinal cord injury; Supraventricular Tachycardia; - PSHx: Back Surgery; Hernia repair; supra pubic catheter insertion; KNEE ARTHROSCOPY; Colon Resection; Hip Arthroplasty, Right; - The history from nurses notes was reviewed: and I agree with what is documented. - Social history: Smoking status: Patient states was never smoker of tobacco. No barriers to communication noted, The patient speaks fluent Slovak, Speaks appropriately for age. - Family history: Not pertinent. - : The pt / caregiver states he / she is on anticoagulants: Eliquis Home medication list is obtained from a discharge med list. - Exposure Risk Screening:: None identified. - Immunization history:: All immunizations up-to-date. - Social history:: the patient is a non-smoker, the patient does not drink alcohol. ROS: 12:32 All systems are negative except if listed. The constitutional, cardiovascular, pc respiratory and neurological components are also addressed in the HPI. Exam: 12:32 General Appearance: alert, no acute distress. pc 12:32 ENT: ear, nose and throat normal, Dry muc. membranes 12:32 Neck: The exam reveals no acute abnormalities. ROM is normal and painless. No nuchal rigidity is noted.. 12:32 Respiratory: no respiratory distress, normal breath sounds, chest non-tender. 12:32 Cardiovascular: regular pulse rate, regular heart rhythm, normal heart sounds, equal and full pulses bilaterally. 12:32 Abdomen: soft, non-tender, no organomegaly, normal bowel sounds. 12:32 Back: normal inspection. 12:32 Skin: skin color is normal, warm, dry. 12:32 Extremities: The extremities have a grossly normal appearance, are non-tender, without acute ROM abnormalities. 12:32 Neuro: oriented x 3, cranial nerves normal as tested. Vital Signs: 10:22 BP 194 / 88 (auto/); ck1 10:22 BP 194 / 88 (auto/); ck1 10:23 BP 184 / 86 (auto/); ck1 10:33 BP 194 / 88; Pulse 67; Resp 18; Temp 98.3(O); Pulse Ox 97% on R/A; Weight 109.32 kg / ck1 241.01 lbs (R); Height 5 ft. 6 in. (167.64 cm) (R); Pain 3/10; 11:20 Pulse 62 MON; Pulse Ox 98% ; ck1 11:21 Pulse 78 MON; Pulse Ox 96% ; ck1 11:21 Pulse 78 MON; Pulse Ox 96% ; ck1 11:22 BP 166 / 81 (auto/); ck1 11:22 Pulse 74 MON; Pulse Ox 96% ; ck1 11:52 Pulse 66 MON; Pulse Ox 96% ; ck1 11:53 BP 176 / 85 (auto/); ck1 11:53 Pulse 68 MON; Pulse Ox 95% ; ck1 11:53 BP 176 / 85 (auto/); ck1 12:23 BP 148 / 70 (auto/); ck1 12:23 Pulse 70 MON; Pulse Ox 96% ; ck1 12:53 BP 161 / 72 (auto/); ck1 12:53 Pulse 80 MON; Pulse Ox 95% ; ck1 13:07 BP 166 / 78 (auto/); ck1 13:07 Pulse 96 MON; Pulse Ox 96% ; ck1 13:08 BP 186 / 82 (auto/); ck1 13:08 Pulse 96 MON; Pulse Ox 96% ; ck1 13:10 BP 166 / 78 Supine; Pulse 99; ck1 13:10 BP 186 / 82 Sitting; Pulse 96; ck1 13:23 BP 162 / 80 (auto/); ms18 13:38 Pulse 80 MON; Pulse Ox 96% ; ms18 13:53 Pulse 88 MON; Pulse Ox 95% ; ck1 13:53 BP 165 / 72 (auto/); ck1 14:23 BP 167 / 77 (auto/); ck1 14:23 Pulse 82 MON; Pulse Ox 95% ; ck1 15:03 BP 183 / 82; Pulse 101; Resp 18; Temp 96.6(O); Pulse Ox 95% on R/A; Pain 3/10; ck1 10:33 Body Mass Index 38.90 (109.32 kg, 167.64 cm) ck1 MDM: 11:11 IV Saline Lock ordered. pc 11:11 Byproducts Extractor/Pulse Ox/q 30 min VS ordered. pc 11:12 CBC with Diff Ordered. EDMS 11:12 MED Profile Ordered. EDMS 11:12 Liver Profile Ordered. EDMS 11:12 Lipase Ordered. EDMS 11:12 Venous Blood Gas (large pea green tube on ice) Ordered. EDMS 11:16 NS 0.9% 1000 ml IV at bolus once ordered. pc 11:16 Ondansetron 4 mg IVP once ordered. pc 11:50 CBC with Diff Reviewed. pc 11:50 MED Profile Reviewed. pc 11:50 Liver Profile Reviewed. pc 11:50 Venous Blood Gas (large pea green tube on ice) Reviewed. pc 11:50 Lipase Reviewed. pc 11:50 Orthostatic VS ordered. pc 12:21 [facility] Payment Agreement was scanned into [employer] and attached to record. jp5 12:21 Financial registration complete. jp5 12:32 Differential diagnosis: Gastroenteritis weakness. Plan: labs, IVF. pc 13:50 Urine Culture Ordered. EDMS 14:27 Data reviewed: old medical records, vital signs, nurses notes, lab test results. Test pc interpretation: LAB - all labs as ordered have been reviewed, interpreted and considered in the overall management of the clinical presentation;. The patient has been re-examined and re-evaluated. The patient's symptoms have markedly improved after treatment. Disposition: The historical points, examination findings, and any diagnostic results supporting the provided diagnosis, were discussed with the patient or legal guardian. The need for outpatient follow up with the provider listed on their discharge instructions was discussed. They were encouraged to return to [facility], or the nearest ED, if symptoms worsen/persist, or for any other questions/concerns. 09/20 14:31 PCR was scanned into [employer] and attached to record. gb Administered Medications: 09/19 11:29 Drug: Ondansetron 4 mg [ondansetron HCl 2 mg/mL intravenous solution (2 mL)] Route: ck1 IVP; Site: left antecubital; 11:30 Drug: NS 0.9% 1000 ml [sodium chloride 0.9 % intravenous solution] Route: IV; Rate: ck1 bolus; Site: left antecubital; 13:09 Follow up: IV Status: Completed infusion ck1 Signatures: Dispatcher MedConferensum EDMS Shemar Plsacencia MD MD pc Barnhardt, Gloria, Reg Reg Gina LomasRN RN ck1 Radha Curiel jp5 The chart was reviewed and I authenticate all verbal orders and agree with the evaluation and treatment provided.Attachments: 12:21 [facility] Payment Agreement jp5 Chart Complete MTDD
--- NOTE | 2016-09-21 16:19 | EDDOCDS ---
Nurse's Notes [facility] Name: Calos Camacho Age: 70 yrs Sex: Male : 1945 Arrival Date: 09/19/2016 Time: 10:16 Bed 18 Private MD: Diagnosis: Other viral enteritis;Chronic kidney disease, stage 3 (moderate);Chronic atrial fibrillation Presentation: 09/19 10:24 Presenting complaint: EMS states: Nausea and vomiting for two days, daughter reports ck1 intermittent confusion. Adult Sepsis Screening: Patient has new or worsening altered mentation (1 point). Patient's respiratory rate is less than 22. Systolic blood pressure is greater than 100. Patient has a qSOFA score of 1- Negative Sepsis Screen. Suicide/Homicide risk assessment- the patient denies having any suicidal and/or homicidal ideations and does not present with any other emotional, behavioral or mental health complaints. 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 Transition of care: patient was not received from another setting of care. 10:24 Acuity: GENIE Level 3 ck1 10:24 Method Of Arrival: Ambulance ck1 10:25 Care prior to arrival: Glucose check. 107. ck1 Triage Assessment: 10:34 General: Appears in no apparent distress, comfortable, Behavior is appropriate for age, ck1 cooperative. Pain: Location: abdomen Pain currently is 4 out of 10 on a pain scale. Quality of pain is described as crampy. Neurological: Level of Consciousness is awake, alert, obeys commands, Oriented to person, place, time. Respiratory: Respiratory effort is unlabored, Respiratory pattern is regular, symmetrical. GI: Abdomen is non- distended Reports nausea, vomiting. : Suprapubic catheter in place to gravity drainage Urine is cloudy. Derm: Skin is pink, warm & dry. Historical: - Allergies: SOO INHIBITORS (Hives); Carisoprodol ("didn't work, I got sick"); Hydrochlorothiazide (Unknown); Morphine (Hives); SULFA (SULFONAMIDES) (Hives); Adhesives; - Home Meds: 1. Eliquis 5 mg oral tab 1 tab 2 times per day 2. baclofen 20 mg Oral tab 1 tab 3 times per day 3. bisacodyl 10 mg Rectal supp 1 suppository four times weekly, Tues, Thurs, Sat, Sun 4. Dulcolax (bisacodyl) 5 mg Oral TbEC 1 tab once daily PRN 5. Coreg 3.125 mg Oral tab 1 tab 2 times per day 6. clotrimazole 1 % Topical crea 2 times per day to groin area 7. Doc-Q-Lace 100 mg oral cap 1 cap 2 times per day as needed 8. fenofibrate 150 mg oral cap 1 cap once daily 9. fluticasone 50 mcg/actuation nasal spsn 1 spray once daily 10. gabapentin 600 mg Oral tab 1 tab 3 times per day 11. Lantus 100 unit/mL Sub-Q soln 44 unit nightly 12. Lantus 100 unit/mL Sub-Q soln 39 unit daily 13. Humalog 100 unit/mL Sub-Q soln three times a day sliding scale 14. loratadine 10 mg Oral TbDL 1 tab once daily 15. magnesium oxide 400 mg Oral tab 800 mg twice a day 16. multivitamin Oral tab 1 tablet daily 17. Nitrostat 0.4 mg SL subl 1 tab every 5 minutes as needed 18. nystatin 100,000 unit/gram Topical powd 2 times per day 19. solifenacin 10 mg oral tab 1 tab once daily 20. spironolactone 25 mg Oral tab 1 tab once daily 21. Vitamin D Oral 64007 unit weekly on Sundays - PMHx: Atrial Fib; Constipation, Chronic; Diabetes - IDDM: controlled; Hypercholesterolemia; Paraplegia, traumatic; Sleep Apnea w/ CPAP; spinal cord injury; Supraventricular Tachycardia; - PSHx: Back Surgery; Hernia repair; supra pubic catheter insertion; KNEE ARTHROSCOPY; Colon Resection; Hip Arthroplasty, Right; - The history from nurses notes was reviewed: and I agree with what is documented. - Social history: Smoking status: Patient states was never smoker of tobacco. No barriers to communication noted, The patient speaks fluent Latvian, Speaks appropriately for age. - Family history: Not pertinent. - : The pt / caregiver states he / she is on anticoagulants: Eliquis Home medication list is obtained from a discharge med list. - Exposure Risk Screening:: None identified. - Immunization history:: All immunizations up-to-date. - Social history:: the patient is a non-smoker, the patient does not drink alcohol. Screenin:33 Screening information is obtained from the patient. Fall risk: At risk due to gait ck1 disturbance, The following interventions are performed due to a positive Fall Risk Screen: Fall Risk is added to Special Handling on the patient Summary Screen. A Fall Risk Bracelet was applied to the patient. Side Rails are placed in the up position. A Call [place]enton is given with instruction to call for help when getting out of bed. Fall Alert bracelet is placed on the patient. Assistance ADL's: Requires assistance with meal preparation, this assistance is provided by family members, bathing, assistance is provided by family members, dressing, assistance is provided by family members, toileting, assistance is provided by family members, ambulation, assistance is provided by family members, housework, assistance is provided by family members, medication administration, assistance is provided by family members. Abuse/DV Screen: The patient / caregiver reports he/she is: not in a situation that causes fear, pain or injury. Nutritional screening: No deficits noted. Advance Directives: Currently, there is a health care proxy, Priscilla Llamas (dtr). home support is adequate. Assessment: 10:35 General: see triage note. ck1 11:30 General: Appears in no apparent distress, comfortable, Behavior is appropriate for age, ck1 cooperative. Pain: Location: abdomen Pain currently is 4 out of 10 on a pain scale. Quality of pain is described as crampy. Neurological: Level of Consciousness is awake, alert, obeys commands, Oriented to person, place, time. Respiratory: Respiratory effort is unlabored, Respiratory pattern is regular, symmetrical. GI: Abdomen is non- distended Bowel sounds present X 4 quads. Abd is soft and non tender X 4 quads. : Suprapubic catheter in place to gravity drainage Urine is cloudy. Derm: Skin is pink, warm & dry. 12:26 Reassessment: Patient appears in no apparent distress at this time. ck1 13:44 General: Appears in no apparent distress, comfortable, Behavior is appropriate for age, ms18 cooperative, pleasant. General: Pt in no acute distress. Family at bedside. Will continue to monitor pt. Pain: Denies pain. Neurological: Level of Consciousness is awake, alert, obeys commands. Respiratory: Airway is patent Respiratory effort is even, unlabored. Derm: Skin is pink, warm & dry. 14:44 Reassessment: Patient appears in no apparent distress at this time. ck1 15:02 General: Appears in no apparent distress, comfortable, Behavior is appropriate for age, ck1 cooperative. Pain: Location: abdomen Pain currently is 3 out of 10 on a pain scale. Quality of pain is described as tender. Neurological: Level of Consciousness is awake, alert, obeys commands, Oriented to person, place, time. Respiratory: Respiratory effort is unlabored, Respiratory pattern is regular, symmetrical. GI: Denies nausea, vomiting. Derm: Skin is pink, warm & dry. Vital Signs: 10:22 BP 194 / 88 (auto/); ck1 10:22 BP 194 / 88 (auto/); ck1 10:23 BP 184 / 86 (auto/); ck1 10:33 BP 194 / 88; Pulse 67; Resp 18; Temp 98.3(O); Pulse Ox 97% on R/A; Weight 109.32 kg ck1 (R); Height 5 ft. 6 in. (167.64 cm) (R); Pain 3/10; 11:20 Pulse 62 MON; Pulse Ox 98% ; ck1 11:21 Pulse 78 MON; Pulse Ox 96% ; ck1 11:21 Pulse 78 MON; Pulse Ox 96% ; ck1 11:22 BP 166 / 81 (auto/); ck1 11:22 Pulse 74 MON; Pulse Ox 96% ; ck1 11:52 Pulse 66 MON; Pulse Ox 96% ; ck1 11:53 BP 176 / 85 (auto/); ck1 11:53 Pulse 68 MON; Pulse Ox 95% ; ck1 11:53 BP 176 / 85 (auto/); ck1 12:23 BP 148 / 70 (auto/); ck1 12:23 Pulse 70 MON; Pulse Ox 96% ; ck1 12:53 BP 161 / 72 (auto/); ck1 12:53 Pulse 80 MON; Pulse Ox 95% ; ck1 13:07 BP 166 / 78 (auto/); ck1 13:07 Pulse 96 MON; Pulse Ox 96% ; ck1 13:08 BP 186 / 82 (auto/); ck1 13:08 Pulse 96 MON; Pulse Ox 96% ; ck1 13:10 BP 166 / 78 Supine; Pulse 99; ck1 13:10 BP 186 / 82 Sitting; Pulse 96; ck1 13:23 BP 162 / 80 (auto/); ms18 13:38 Pulse 80 MON; Pulse Ox 96% ; ms18 13:53 Pulse 88 MON; Pulse Ox 95% ; ck1 13:53 BP 165 / 72 (auto/); ck1 14:23 BP 167 / 77 (auto/); ck1 14:23 Pulse 82 MON; Pulse Ox 95% ; ck1 15:03 BP 183 / 82; Pulse 101; Resp 18; Temp 96.6(O); Pulse Ox 95% on R/A; Pain 3/10; ck1 10:33 Body Mass Index 38.90 (109.32 kg, 167.64 cm) ck1 Vitals: 10:33 Log In Time N/A - ambulance arrival. ck1 ED Course: 10:17 Patient visited by Louann Pineda, Service Now Developer. deg 10:17 Yesenia Whitaker,RN is Primary Nurse. deg 10:17 Gina Sorenson,RN is Primary Nurse. deg 10:17 Patient moved to Waiting deg 10:17 Patient moved to 18 deg 10:25 Triage Initiated ck1 10:34 The patient / caregiver is instructed regarding the plan of care and ED course. ck1 10:52 Patient visited by Gina Sorenson RN. ck1 10:52 Inserted saline lock: 20 gauge in left antecubital area and blood collected. The ck1 patient tolerated the procedure well. 10:59 Shemar Plascencia MD is Attending Physician. pc 11:10 Patient visited by Shemar Plascencia MD. pc 11:14 CBC with Diff Sent. ck1 11:14 MED Profile Sent. ck1 11:14 Liver Profile Sent. ck1 11:14 Lipase Sent. ck1 11:29 Patient visited by Gina Sorenson RN. ck1 11:56 Patient visited by Gina Sorenson,DANNA. ck1 12:21 [facility] [place] was scanned into [employer] and attached to record. jp5 12:24 Patient visited by Gina Sorenson RN. ck1 12:57 Patient visited by Gina Sorenson RN. ck1 13:09 Patient visited by Gina Sorenson RN. ck1 13:44 Patient visited by Jennifer Whitaker RN. ms18 14:30 Malhia Tiwari PA-C is Referral Physician. pc 15:01 Discontinued lock intact, bleeding controlled, pressure dressing applied, No ck1 redness/swelling at site. No procedures done that require assistance. 09/20 14:31 PCR was scanned into [employer] and attached to record. gb Administered Medications: 09/19 11:29 Drug: Ondansetron 4 mg [ondansetron HCl 2 mg/mL intravenous solution (2 mL)] Route: ck1 IVP; Site: left antecubital; 11:30 Drug: NS 0.9% 1000 ml [sodium chloride 0.9 % intravenous solution] Route: IV; Rate: ck1 bolus; Site: left antecubital; 13:09 Follow up: IV Status: Completed infusion ck1 Order Results: Lab Order: CBC with Diff; SPEC'M 09/19/16 10:48 Test: WHITE BLOOD COUNT; Value: 7.6; Range: 4.0-10.0; Units: K/mm3; Status: F Test: RED BLOOD COUNT; Value: 5.90; Range: 4.30-6.10; Units: M/mm3; Status: F Test: HEMOGLOBIN; Value: 17.4; Range: 14.0-18.0; Units: g/dl; Status: F Test: HEMATOCRIT; Value: 49.8; Range: 42.0-52.0; Units: %; Status: F Test: MEAN CORPUSCULAR VOLUME; Value: 84.4; Range: 80.0-96.0; Units: fl; Status: F Test: MEAN CORPUSCULAR HEMOGLOBIN; Value: 29.5; Range: 27.0-33.0; Units: pg; Status: F Test: MEAN CORPUSCULAR HGB CONC; Value: 34.9; Range: 32.0-36.5; Units: g/dl; Status: F Test: RED CELL DISTRIBUTION WIDTH; Value: 14.1; Range: 11.5-14.5; Units: %; Status: F Test: PLATELET COUNT, AUTOMATED; Value: 245; Range: 150-450; Units: k/mm3; Status: F Test: NEUTROPHILS %; Value: 68.8; Range: 36.0-66.0; Abnormal: Above high normal; Units: %; Status: F Test: LYMPH %; Value: 20.8; Range: 24.0-44.0; Abnormal: Below low normal; Units: %; Status: F Test: MONO %; Value: 7.6; Range: 0.0-5.0; Abnormal: Above high normal; Units: %; Status: F Test: EOS %; Value: 1.0; Range: 0.0-3.0; Units: %; Status: F Test: BASO %; Value: 0.2; Range: 0.0-1.0; Units: %; Status: F Test: LARGE UNSTAINED CELL %; Value: 1.6; Range: 0.0-4.0; Units: %; Status: F Test: NEUTROPHILS #; Value: 5.2; Range: 1.8-7.7; Units: K/mm3; Status: F Test: LYMPH #; Value: 1.6; Range: 1.5-4.5; Units: K/mm3; Status: F Test: MONO #; Value: 0.6; Range: 0.0-0.8; Units: K/mm3; Status: F Test: EOS #; Value: 0.1; Range: 0.0-0.50; Units: K/mm3; Status: F Test: BASO #; Value: 0.0; Range: 0.0-0.2; Units: K/mm3; Status: F Test: LARGE UNSTAINED CELL #; Value: 0.1; Range: 0.0-0.4; Units: K/mm3; Status: F Lab Order: [facility]; [facility] 09/19/16 10:48 Test: GLUCOSE, FASTING; Value: 134; Range: 83-110; Abnormal: Above high normal; Units: MG/DL; Status: F Test: BLOOD UREA NITROGEN; Value: 25; Range: 7-18; Abnormal: Above high normal; Units: MG/DL; Status: F Test: CREATININE FOR GFR; Value: 1.41; Range: 0.70-1.30; Abnormal: Above high normal; Units: MG/DL; Status: F Test: GLOMERULAR FILTRATION RATE; Value: 52.9; Range: >42; Status: F Test: SODIUM LEVEL; Value: 132; Range: 136-145; Abnormal: Below low normal; Units: MEQ/L; Status: F Test: POTASSIUM SERUM; Value: 3.9; Range: 3.5-5.1; Units: MEQ/L; Status: F Test: CHLORIDE LEVEL; Value: 94; Range: 98-107; Abnormal: Below low normal; Units: MEQ/L; Status: F Test: CARBON DIOXIDE LEVEL; Value: 29; Range: 21-32; Units: MEQ/L; Status: F Test: ANION GAP; Value: 9; Range: 8-16; Units: MEQ/L; Status: F Test: CALCIUM LEVEL; Value: 9.7; Range: 8.8-10.2; Units: MG/DL; Status: F Test Note: ; Units are mL/min/1.73 m2 Chronic Kidney Disease Staging per NKF: Stage I & II GFR >=60 Normal to Mildly Decreased Stage III GFR 30-59 Moderately Decreased Stage IV GFR 15-29 Severely Decreased Stage V GFR <15 Very Little GFR Left ESRD GFR <15 on [facility] Lab Order: Liver Profile; SPEC'M 09/19/16 10:48 Test: AST/SGOT; Value: 24; Range: 15-37; Units: U/L; Status: F Test: ALT/SGPT; Value: 26; Range: 12-78; Units: U/L; Status: F Test: ALKALINE PHOSPHATASE; Value: 96; Range: 45-117; Units: U/L; Status: F Test: BILIRUBIN,TOTAL; Value: 0.5; Range: 0.2-1.0; Units: MG/DL; Status: F Test: BILIRUBIN,DIRECT; Value: 0.2; Range: 0.0-0.2; Units: MG/DL; Status: F Test: TOTAL PROTEIN; Value: 8.5; Range: 6.4-8.2; Abnormal: Above high normal; Units: GM/DL; Status: F Test: ALBUMIN; Value: 3.6; Range: 3.2-5.2; Units: GM/DL; Status: F Test: ALBUMIN/GLOBULIN RATIO; Value: 0.73; Range: 1.00-1.93; Abnormal: Below low normal; Status: F Lab Order: Lipase; SPEC'M 09/19/16 10:48 Test: LIPASE; Value: 131; Range: 73-393; Units: U/L; Status: F Lab Order: Venous Blood Gas (large pea green tube on ice); SPEC'M 09/19/16 10:48 Test: VENOUS PH; Value: 7.324; Range: 7.330-7.430; Abnormal: Below low normal; Units: UNITS; Status: F Test: VENOUS PARTIAL PRESSURE CO2; Value: 50.1; Range: 38.0-50.0; Abnormal: Above high normal; Units: mmHg; Status: F Test: VENOUS PARTIAL PRESSURE O2; Value: 37.7; Range: 30.0-50.0; Units: mmHg; Status: F Test: VENOUS TOTAL CO2; Value: 27.0; Range: 24.0-28.0; Units: MEQ/L; Status: F Test: VENOUS HCO3; Value: 25.5; Range: 23.0-27.0; Units: MEQ/L; Status: F Test: VENOUS BASE EXCESS; Value: -1.4; Range: -2.0-2.0; Status: F Test: VENOUS STANDARD HCO3; Value: 22.6; Units: MEQ/L; Status: F Test: VENOUS O2 SATURATION; Value: 71.3; Range: 60.0-80.0; Units: %; Status: F Lab Order: Urine Culture; SPEC'M 09/19/16 14:06 Test: URINE CULTURE; Value: ORGANISM 1: PSEUDOMONAS AERUGINOSA; Status: F Test: URINE CULTURE; Value: PSEUDOMONAS AERUGINOSA; Status: F Test: URINE CULTURE; Value: COLONY COUNT CFU/ml >100,000; Status: F Test: URINE CULTURE; Value: CORYNEBACTERIUM SPECIES; Status: F Test: URINE CULTURE; Value: COLONY COUNT CFU/ml >100,000; Status: F Test: URINE CULTURE; Value: Corynebacterium LINE 4 Many species of Coryneform bacteria are part of the; Status: F Test: URINE CULTURE; Value: Corynebacterium LINE 5 normal ángel of the skin and mucous membranes in; Status: F Test: URINE CULTURE; Value: Corynebacterium LINE 6 humans. Repeated isolation or a coryneform bacterium; Status: F Test: URINE CULTURE; Value: Corynebacterium LINE 7 growing in pure culture may require consultation with; Status: F Test: URINE CULTURE; Value: Corynebacterium LINE 8 an infectious disease specialist. There are currently; Status: F Test: URINE CULTURE; Value: Corynebacterium LINE 9 no susceptibility standards for these organisms.; Status: F Test: URINE CULTURE; Value: ORGANISM 2: CORYNEBACTERIUM SPECIES; Status: F Test: URINE CULTURE; Value: PSEUDOMONAS AERUGINOSA; Status: F Test: URINE CULTURE; Value: COLONY COUNT CFU/ml >100,000; Status: F Test: URINE CULTURE; Value: CORYNEBACTERIUM SPECIES; Status: F Test: URINE CULTURE; Value: COLONY COUNT CFU/ml >100,000; Status: F Test: URINE CULTURE; Value: Corynebacterium LINE 4 Many species of Coryneform bacteria are part of the; Status: F Test: URINE CULTURE; Value: Corynebacterium LINE 5 normal ángel of the skin and mucous membranes in; Status: F Test: URINE CULTURE; Value: Corynebacterium LINE 6 humans. Repeated isolation or a coryneform bacterium; Status: F Test: URINE CULTURE; Value: Corynebacterium LINE 7 growing in pure culture may require consultation with; Status: F Test: URINE CULTURE; Value: Corynebacterium LINE 8 an infectious disease specialist. There are currently; Status: F Test: URINE CULTURE; Value: Corynebacterium LINE 9 no susceptibility standards for these organisms.; Status: F Test: URINE CULTURE; Value: GRAM NEG SENSI - VITEK 80; Status: F Test: URINE CULTURE; Value: Method: VIT2; Status: F Test: URINE CULTURE; Value: GENTAMICIN <=1 S; Status: F Test: URINE CULTURE; Value: NITROFURANTOIN 128 R; Status: F Test: URINE CULTURE; Value: LEVOFLOXACIN >=8 R; Status: F Test: URINE CULTURE; Value: TOBRAMYCIN <=1 S; Status: F Test: URINE CULTURE; Value: CEFTAZIDIME <=1 S; Status: F Test: URINE CULTURE; Value: PIPERACILLIN/TAZOBACTAM <=4 S; Status: F Test: URINE CULTURE; Value: MEROPENEM 0.5 S; Status: F Test: URINE CULTURE; Value: CEFEPIME <=1 S; Status: F Outcome: 14:30 Discharge ordered by Provider. 15:02 Discharge Assessment: Patient awake, alert and oriented x 3. No cognitive and/or ck1 functional deficits noted. Patient verbalized understanding of disposition instructions. patient administered narcotics - no. The following High Risk Discharge criteria are identified: None. Discharged to home with family, via [facility]. Condition: stable. Discharge instructions given to patient, Instructed on discharge instructions, follow up and referral plans. medication usage, Demonstrated understanding of instructions, medications, Pt was receptive of discharge instructions/ teaching. Prescriptions given X 1. No special radiology studies were completed. Property :Personal belongings accompany Pt. 15:18 Patient left the ED. ck1 Signatures: Shemar Plascencia MD MD pc Louann Pineda, Service Now Developer Unit deg [place], Reg Reg gb Gina SorensonRN RN ck1 Jennifer Whitaker RN RN ms18 Radha Curiel jp5 Chart Complete [facility]RIK
--- NOTE | 2016-09-22 10:19 | EDDOCDS ---
Physician Documentation [facility] Name: Calos Camacho Age: 70 yrs Sex: Male : 1945 Arrival Date: 09/19/2016 Time: 10:16 Bed 18 Private MD: Disposition: 09/19 14:27 Critical Care: Critical care not applicable. pc Disposition: 09/19/16 14:30 Discharged to Home/Self Care. Impression: Other viral enteritis, Chronic kidney disease, stage 3 (moderate), Chronic atrial fibrillation. - Condition is Stable. - Discharge Instructions: Clear Liquid Diet, Viral Gastroenteritis. - Prescriptions for ZOFRAN ODT 4 mg - dissolve 1 tablet by ORAL route 4 times per day As needed do not chew, do not swallow whole; 10 tablet. - Medication Reconciliation, Local Pharmacy Hours form. - Follow up: Maliha Tiwari PA-C; When: 2 - 3 days; Reason: Recheck today's complaints, Continuance of care. - Problem is new. - Symptoms have improved. HPI: 12:32 This 70 yrs old Male presents to ER via Ambulance with complaints of pc Abdominal Pain. 12:32 The history is obtained from the patient, the patient's family/friend. The patient pc presents with abdominal pain, vomiting. The symptoms began suddenly 3 days ago. There have been multiple episodes. He developed nausea and vomiting with abdominal cramping 3 days ago and has been unable to tolerate any fluids and has been vomiting up his pills. He was too weak to stand to transfer this morning and has been confused at times, per his daughter. He has not had any fevers or chills, diarrhea or constipation, Resp or symptoms. The patient has experienced similar episodes in the past, a few times. The patient has been recently been admitted at [facility], was discharged last month, for a UTI. Historical: - Allergies: SOO INHIBITORS (Hives); Carisoprodol ("didn't work, I got sick"); Hydrochlorothiazide (Unknown); Morphine (Hives); SULFA (SULFONAMIDES) (Hives); Adhesives; - Home Meds: 1. Eliquis 5 mg oral tab 1 tab 2 times per day 2. baclofen 20 mg Oral tab 1 tab 3 times per day 3. bisacodyl 10 mg Rectal supp 1 suppository four times weekly, Tues, Thurs, Sat, Sun 4. Dulcolax (bisacodyl) 5 mg Oral TbEC 1 tab once daily PRN 5. Coreg 3.125 mg Oral tab 1 tab 2 times per day 6. clotrimazole 1 % Topical crea 2 times per day to groin area 7. Doc-Q-Lace 100 mg oral cap 1 cap 2 times per day as needed 8. fenofibrate 150 mg oral cap 1 cap once daily 9. fluticasone 50 mcg/actuation nasal spsn 1 spray once daily 10. gabapentin 600 mg Oral tab 1 tab 3 times per day 11. Lantus 100 unit/mL Sub-Q soln 44 unit nightly 12. Lantus 100 unit/mL Sub-Q soln 39 unit daily 13. Humalog 100 unit/mL Sub-Q soln three times a day sliding scale 14. loratadine 10 mg Oral TbDL 1 tab once daily 15. magnesium oxide 400 mg Oral tab 800 mg twice a day 16. multivitamin Oral tab 1 tablet daily 17. Nitrostat 0.4 mg SL subl 1 tab every 5 minutes as needed 18. nystatin 100,000 unit/gram Topical powd 2 times per day 19. solifenacin 10 mg oral tab 1 tab once daily 20. spironolactone 25 mg Oral tab 1 tab once daily 21. Vitamin D Oral 75931 unit weekly on Sundays - PMHx: Atrial Fib; Constipation, Chronic; Diabetes - IDDM: controlled; Hypercholesterolemia; Paraplegia, traumatic; Sleep Apnea w/ CPAP; spinal cord injury; Supraventricular Tachycardia; - PSHx: Back Surgery; Hernia repair; supra pubic catheter insertion; KNEE ARTHROSCOPY; Colon Resection; Hip Arthroplasty, Right; - The history from nurses notes was reviewed: and I agree with what is documented. - Social history: Smoking status: Patient states was never smoker of tobacco. No barriers to communication noted, The patient speaks fluent Syriac, Speaks appropriately for age. - Family history: Not pertinent. - : The pt / caregiver states he / she is on anticoagulants: Eliquis Home medication list is obtained from a discharge med list. - Exposure Risk Screening:: None identified. - Immunization history:: All immunizations up-to-date. - Social history:: the patient is a non-smoker, the patient does not drink alcohol. ROS: 12:32 All systems are negative except if listed. The constitutional, cardiovascular, pc respiratory and neurological components are also addressed in the HPI. Exam: 12:32 General Appearance: alert, no acute distress. pc 12:32 ENT: ear, nose and throat normal, Dry muc. membranes 12:32 Neck: The exam reveals no acute abnormalities. ROM is normal and painless. No nuchal rigidity is noted.. 12:32 Respiratory: no respiratory distress, normal breath sounds, chest non-tender. 12:32 Cardiovascular: regular pulse rate, regular heart rhythm, normal heart sounds, equal and full pulses bilaterally. 12:32 Abdomen: soft, non-tender, no organomegaly, normal bowel sounds. 12:32 Back: normal inspection. 12:32 Skin: skin color is normal, warm, dry. 12:32 Extremities: The extremities have a grossly normal appearance, are non-tender, without acute ROM abnormalities. 12:32 Neuro: oriented x 3, cranial nerves normal as tested. Vital Signs: 10:22 BP 194 / 88 (auto/); ck1 10:22 BP 194 / 88 (auto/); ck1 10:23 BP 184 / 86 (auto/); ck1 10:33 BP 194 / 88; Pulse 67; Resp 18; Temp 98.3(O); Pulse Ox 97% on R/A; Weight 109.32 kg / ck1 241.01 lbs (R); Height 5 ft. 6 in. (167.64 cm) (R); Pain 3/10; 11:20 Pulse 62 MON; Pulse Ox 98% ; ck1 11:21 Pulse 78 MON; Pulse Ox 96% ; ck1 11:21 Pulse 78 MON; Pulse Ox 96% ; ck1 11:22 BP 166 / 81 (auto/); ck1 11:22 Pulse 74 MON; Pulse Ox 96% ; ck1 11:52 Pulse 66 MON; Pulse Ox 96% ; ck1 11:53 BP 176 / 85 (auto/); ck1 11:53 Pulse 68 MON; Pulse Ox 95% ; ck1 11:53 BP 176 / 85 (auto/); ck1 12:23 BP 148 / 70 (auto/); ck1 12:23 Pulse 70 MON; Pulse Ox 96% ; ck1 12:53 BP 161 / 72 (auto/); ck1 12:53 Pulse 80 MON; Pulse Ox 95% ; ck1 13:07 BP 166 / 78 (auto/); ck1 13:07 Pulse 96 MON; Pulse Ox 96% ; ck1 13:08 BP 186 / 82 (auto/); ck1 13:08 Pulse 96 MON; Pulse Ox 96% ; ck1 13:10 BP 166 / 78 Supine; Pulse 99; ck1 13:10 BP 186 / 82 Sitting; Pulse 96; ck1 13:23 BP 162 / 80 (auto/); ms18 13:38 Pulse 80 MON; Pulse Ox 96% ; ms18 13:53 Pulse 88 MON; Pulse Ox 95% ; ck1 13:53 BP 165 / 72 (auto/); ck1 14:23 BP 167 / 77 (auto/); ck1 14:23 Pulse 82 MON; Pulse Ox 95% ; ck1 15:03 BP 183 / 82; Pulse 101; Resp 18; Temp 96.6(O); Pulse Ox 95% on R/A; Pain 3/10; ck1 10:33 Body Mass Index 38.90 (109.32 kg, 167.64 cm) ck1 MDM: 11:11 IV Saline Lock ordered. pc 11:11 Filling Operator/Pulse Ox/q 30 min VS ordered. pc 11:12 CBC with Diff Ordered. EDMS 11:12 MED Profile Ordered. EDMS 11:12 Liver Profile Ordered. EDMS 11:12 Lipase Ordered. EDMS 11:12 Venous Blood Gas (large pea green tube on ice) Ordered. EDMS 11:16 NS 0.9% 1000 ml IV at bolus once ordered. pc 11:16 Ondansetron 4 mg IVP once ordered. pc 11:50 CBC with Diff Reviewed. pc 11:50 MED Profile Reviewed. pc 11:50 Liver Profile Reviewed. pc 11:50 Venous Blood Gas (large pea green tube on ice) Reviewed. pc 11:50 Lipase Reviewed. pc 11:50 Orthostatic VS ordered. pc 12:21 [facility] was scanned into [employer] and attached to record. jp5 12:21 Financial registration complete. jp5 12:32 Differential diagnosis: Gastroenteritis weakness. Plan: labs, IVF. pc 13:50 Urine Culture Ordered. EDMS 14:27 Data reviewed: old medical records, vital signs, nurses notes, lab test results. Test pc interpretation: LAB - all labs as ordered have been reviewed, interpreted and considered in the overall management of the clinical presentation;. The patient has been re-examined and re-evaluated. The patient's symptoms have markedly improved after treatment. Disposition: The historical points, examination findings, and any diagnostic results supporting the provided diagnosis, were discussed with the patient or legal guardian. The need for outpatient follow up with the provider listed on their discharge instructions was discussed. They were encouraged to return to [facility], or the nearest ED, if symptoms worsen/persist, or for any other questions/concerns. 09/20 14:31 PCR was scanned into [employer] and attached to record. gb Administered Medications: 09/19 11:29 Drug: Ondansetron 4 mg [ondansetron HCl 2 mg/mL intravenous solution (2 mL)] Route: ck1 IVP; Site: left antecubital; 11:30 Drug: NS 0.9% 1000 ml [sodium chloride 0.9 % intravenous solution] Route: IV; Rate: ck1 bolus; Site: left antecubital; 13:09 Follow up: IV Status: Completed infusion ck1 Signatures: Dispatcher [facility] EDMS Shemar Plascencia MD MD pc Barnhardt, Gloria, Reg Reg Gina Lomas RN RN ck1 Radha Curiel jp5 The chart was reviewed and I authenticate all verbal orders and agree with the evaluation and treatment provided.Attachments: 12:21 [facility] Payment Agreement jp5 MTDD
--- NOTE | 2016-09-22 10:19 | EDDOCDS ---
Physician Documentation [facility] Name: Calos Camacho Age: 70 yrs Sex: Male : 1945 Arrival Date: 09/19/2016 Time: 10:16 Bed 18 Private MD: Disposition: 09/19 14:27 Critical Care: Critical care not applicable. pc Disposition: 09/19/16 14:30 Discharged to Home/Self Care. Impression: Other viral enteritis, Chronic kidney disease, stage 3 (moderate), Chronic atrial fibrillation. - Condition is Stable. - Discharge Instructions: Clear Liquid Diet, Viral Gastroenteritis. - Prescriptions for ZOFRAN ODT 4 mg - dissolve 1 tablet by ORAL route 4 times per day As needed do not chew, do not swallow whole; 10 tablet. - Medication Reconciliation, Local Pharmacy Hours form. - Follow up: Maliha Tiwari PA-C; When: 2 - 3 days; Reason: Recheck today's complaints, Continuance of care. - Problem is new. - Symptoms have improved. HPI: 12:32 This 70 yrs old Male presents to ER via Ambulance with complaints of pc Abdominal Pain. 12:32 The history is obtained from the patient, the patient's family/friend. The patient pc presents with abdominal pain, vomiting. The symptoms began suddenly 3 days ago. There have been multiple episodes. He developed nausea and vomiting with abdominal cramping 3 days ago and has been unable to tolerate any fluids and has been vomiting up his pills. He was too weak to stand to transfer this morning and has been confused at times, per his daughter. He has not had any fevers or chills, diarrhea or constipation, Resp or symptoms. The patient has experienced similar episodes in the past, a few times. The patient has been recently been admitted at [facility], was discharged last month, for a UTI. Historical: - Allergies: SOO INHIBITORS (Hives); Carisoprodol ("didn't work, I got sick"); Hydrochlorothiazide (Unknown); Morphine (Hives); SULFA (SULFONAMIDES) (Hives); Adhesives; - Home Meds: 1. Eliquis 5 mg oral tab 1 tab 2 times per day 2. baclofen 20 mg Oral tab 1 tab 3 times per day 3. bisacodyl 10 mg Rectal supp 1 suppository four times weekly, Tues, Thurs, Sat, Sun 4. Dulcolax (bisacodyl) 5 mg Oral TbEC 1 tab once daily PRN 5. Coreg 3.125 mg Oral tab 1 tab 2 times per day 6. clotrimazole 1 % Topical crea 2 times per day to groin area 7. Doc-Q-Lace 100 mg oral cap 1 cap 2 times per day as needed 8. fenofibrate 150 mg oral cap 1 cap once daily 9. fluticasone 50 mcg/actuation nasal spsn 1 spray once daily 10. gabapentin 600 mg Oral tab 1 tab 3 times per day 11. Lantus 100 unit/mL Sub-Q soln 44 unit nightly 12. Lantus 100 unit/mL Sub-Q soln 39 unit daily 13. Humalog 100 unit/mL Sub-Q soln three times a day sliding scale 14. loratadine 10 mg Oral TbDL 1 tab once daily 15. magnesium oxide 400 mg Oral tab 800 mg twice a day 16. multivitamin Oral tab 1 tablet daily 17. Nitrostat 0.4 mg SL subl 1 tab every 5 minutes as needed 18. nystatin 100,000 unit/gram Topical powd 2 times per day 19. solifenacin 10 mg oral tab 1 tab once daily 20. spironolactone 25 mg Oral tab 1 tab once daily 21. Vitamin D Oral 55084 unit weekly on Sundays - PMHx: Atrial Fib; Constipation, Chronic; Diabetes - IDDM: controlled; Hypercholesterolemia; Paraplegia, traumatic; Sleep Apnea w/ CPAP; spinal cord injury; Supraventricular Tachycardia; - PSHx: Back Surgery; Hernia repair; supra pubic catheter insertion; KNEE ARTHROSCOPY; Colon Resection; Hip Arthroplasty, Right; - The history from nurses notes was reviewed: and I agree with what is documented. - Social history: Smoking status: Patient states was never smoker of tobacco. No barriers to communication noted, The patient speaks fluent Albanian, Speaks appropriately for age. - Family history: Not pertinent. - : The pt / caregiver states he / she is on anticoagulants: Eliquis Home medication list is obtained from a discharge med list. - Exposure Risk Screening:: None identified. - Immunization history:: All immunizations up-to-date. - Social history:: the patient is a non-smoker, the patient does not drink alcohol. ROS: 12:32 All systems are negative except if listed. The constitutional, cardiovascular, pc respiratory and neurological components are also addressed in the HPI. Exam: 12:32 General Appearance: alert, no acute distress. pc 12:32 ENT: ear, nose and throat normal, Dry muc. membranes 12:32 Neck: The exam reveals no acute abnormalities. ROM is normal and painless. No nuchal rigidity is noted.. 12:32 Respiratory: no respiratory distress, normal breath sounds, chest non-tender. 12:32 Cardiovascular: regular pulse rate, regular heart rhythm, normal heart sounds, equal and full pulses bilaterally. 12:32 Abdomen: soft, non-tender, no organomegaly, normal bowel sounds. 12:32 Back: normal inspection. 12:32 Skin: skin color is normal, warm, dry. 12:32 Extremities: The extremities have a grossly normal appearance, are non-tender, without acute ROM abnormalities. 12:32 Neuro: oriented x 3, cranial nerves normal as tested. Vital Signs: 10:22 BP 194 / 88 (auto/); ck1 10:22 BP 194 / 88 (auto/); ck1 10:23 BP 184 / 86 (auto/); ck1 10:33 BP 194 / 88; Pulse 67; Resp 18; Temp 98.3(O); Pulse Ox 97% on R/A; Weight 109.32 kg / ck1 241.01 lbs (R); Height 5 ft. 6 in. (167.64 cm) (R); Pain 3/10; 11:20 Pulse 62 MON; Pulse Ox 98% ; ck1 11:21 Pulse 78 MON; Pulse Ox 96% ; ck1 11:21 Pulse 78 MON; Pulse Ox 96% ; ck1 11:22 BP 166 / 81 (auto/); ck1 11:22 Pulse 74 MON; Pulse Ox 96% ; ck1 11:52 Pulse 66 MON; Pulse Ox 96% ; ck1 11:53 BP 176 / 85 (auto/); ck1 11:53 Pulse 68 MON; Pulse Ox 95% ; ck1 11:53 BP 176 / 85 (auto/); ck1 12:23 BP 148 / 70 (auto/); ck1 12:23 Pulse 70 MON; Pulse Ox 96% ; ck1 12:53 BP 161 / 72 (auto/); ck1 12:53 Pulse 80 MON; Pulse Ox 95% ; ck1 13:07 BP 166 / 78 (auto/); ck1 13:07 Pulse 96 MON; Pulse Ox 96% ; ck1 13:08 BP 186 / 82 (auto/); ck1 13:08 Pulse 96 MON; Pulse Ox 96% ; ck1 13:10 BP 166 / 78 Supine; Pulse 99; ck1 13:10 BP 186 / 82 Sitting; Pulse 96; ck1 13:23 BP 162 / 80 (auto/); ms18 13:38 Pulse 80 MON; Pulse Ox 96% ; ms18 13:53 Pulse 88 MON; Pulse Ox 95% ; ck1 13:53 BP 165 / 72 (auto/); ck1 14:23 BP 167 / 77 (auto/); ck1 14:23 Pulse 82 MON; Pulse Ox 95% ; ck1 15:03 BP 183 / 82; Pulse 101; Resp 18; Temp 96.6(O); Pulse Ox 95% on R/A; Pain 3/10; ck1 10:33 Body Mass Index 38.90 (109.32 kg, 167.64 cm) ck1 MDM: 11:11 IV Saline Lock ordered. pc 11:11 Patient Placement Coordinator/Pulse Ox/q 30 min VS ordered. pc 11:12 CBC with Diff Ordered. EDMS 11:12 MED Profile Ordered. EDMS 11:12 Liver Profile Ordered. EDMS 11:12 Lipase Ordered. EDMS 11:12 Venous Blood Gas (large pea green tube on ice) Ordered. EDMS 11:16 NS 0.9% 1000 ml IV at bolus once ordered. pc 11:16 Ondansetron 4 mg IVP once ordered. pc 11:50 CBC with Diff Reviewed. pc 11:50 MED Profile Reviewed. pc 11:50 Liver Profile Reviewed. pc 11:50 Venous Blood Gas (large pea green tube on ice) Reviewed. pc 11:50 Lipase Reviewed. pc 11:50 Orthostatic VS ordered. pc 12:21 [facility] [place] was scanned into [email or web address] and attached to record. jp5 12:21 Financial registration complete. jp5 12:32 Differential diagnosis: Gastroenteritis weakness. Plan: labs, IVF. pc 13:50 Urine Culture Ordered. EDMS 14:27 Data reviewed: old medical records, vital signs, nurses notes, lab test results. Test pc interpretation: LAB - all labs as ordered have been reviewed, interpreted and considered in the overall management of the clinical presentation;. The patient has been re-examined and re-evaluated. The patient's symptoms have markedly improved after treatment. Disposition: The historical points, examination findings, and any diagnostic results supporting the provided diagnosis, were discussed with the patient or legal guardian. The need for outpatient follow up with the provider listed on their discharge instructions was discussed. They were encouraged to return to [facility], or the nearest ED, if symptoms worsen/persist, or for any other questions/concerns. 09/20 14:31 PCR was scanned into [email or web address] and attached to record. gb Administered Medications: 09/19 11:29 Drug: Ondansetron 4 mg [ondansetron HCl 2 mg/mL intravenous solution (2 mL)] Route: ck1 IVP; Site: left antecubital; 11:30 Drug: NS 0.9% 1000 ml [sodium chloride 0.9 % intravenous solution] Route: IV; Rate: ck1 bolus; Site: left antecubital; 13:09 Follow up: IV Status: Completed infusion ck1 Signatures: Dispatcher [employer] EDMS Shemar Plascencia MD MD pc Barnhardt, Gloria, Reg Reg Gina Lomas RN RN ck1 Radha Curiel jp5 The chart was reviewed and I authenticate all verbal orders and agree with the evaluation and treatment provided.Attachments: 12:21 [facility] Payment Agreement jp5 MTDD
--- NOTE | 2016-09-22 10:20 | EDDOCDS ---
Physician Documentation [facility] Name: Calos Camacho Age: 70 yrs Sex: Male : 1945 Arrival Date: 09/19/2016 Time: 10:16 Bed 18 Private MD: Disposition: 09/19 14:27 Critical Care: Critical care not applicable. pc Disposition: 09/19/16 14:30 Discharged to Home/Self Care. Impression: Other viral enteritis, Chronic kidney disease, stage 3 (moderate), Chronic atrial fibrillation. - Condition is Stable. - Discharge Instructions: Clear Liquid Diet, Viral Gastroenteritis. - Prescriptions for ZOFRAN ODT 4 mg - dissolve 1 tablet by ORAL route 4 times per day As needed do not chew, do not swallow whole; 10 tablet. - Medication Reconciliation, Local Pharmacy Hours form. - Follow up: Maliha Tiwari PA-C; When: 2 - 3 days; Reason: Recheck today's complaints, Continuance of care. - Problem is new. - Symptoms have improved. HPI: 12:32 This 70 yrs old Male presents to ER via Ambulance with complaints of pc Abdominal Pain. 12:32 The history is obtained from the patient, the patient's family/friend. The patient pc presents with abdominal pain, vomiting. The symptoms began suddenly 3 days ago. There have been multiple episodes. He developed nausea and vomiting with abdominal cramping 3 days ago and has been unable to tolerate any fluids and has been vomiting up his pills. He was too weak to stand to transfer this morning and has been confused at times, per his daughter. He has not had any fevers or chills, diarrhea or constipation, Resp or symptoms. The patient has experienced similar episodes in the past, a few times. The patient has been recently been admitted at [facility], was discharged last month, for a UTI. Historical: - Allergies: SOO INHIBITORS (Hives); Carisoprodol ("didn't work, I got sick"); Hydrochlorothiazide (Unknown); Morphine (Hives); SULFA (SULFONAMIDES) (Hives); Adhesives; - Home Meds: 1. Eliquis 5 mg oral tab 1 tab 2 times per day 2. baclofen 20 mg Oral tab 1 tab 3 times per day 3. bisacodyl 10 mg Rectal supp 1 suppository four times weekly, Tues, Thurs, Sat, Sun 4. Dulcolax (bisacodyl) 5 mg Oral TbEC 1 tab once daily PRN 5. Coreg 3.125 mg Oral tab 1 tab 2 times per day 6. clotrimazole 1 % Topical crea 2 times per day to groin area 7. Doc-Q-Lace 100 mg oral cap 1 cap 2 times per day as needed 8. fenofibrate 150 mg oral cap 1 cap once daily 9. fluticasone 50 mcg/actuation nasal spsn 1 spray once daily 10. gabapentin 600 mg Oral tab 1 tab 3 times per day 11. Lantus 100 unit/mL Sub-Q soln 44 unit nightly 12. Lantus 100 unit/mL Sub-Q soln 39 unit daily 13. Humalog 100 unit/mL Sub-Q soln three times a day sliding scale 14. loratadine 10 mg Oral TbDL 1 tab once daily 15. magnesium oxide 400 mg Oral tab 800 mg twice a day 16. multivitamin Oral tab 1 tablet daily 17. Nitrostat 0.4 mg SL subl 1 tab every 5 minutes as needed 18. nystatin 100,000 unit/gram Topical powd 2 times per day 19. solifenacin 10 mg oral tab 1 tab once daily 20. spironolactone 25 mg Oral tab 1 tab once daily 21. Vitamin D Oral [address]808 unit weekly on Sundays - PMHx: Atrial Fib; Constipation, Chronic; Diabetes - IDDM: controlled; Hypercholesterolemia; Paraplegia, traumatic; Sleep Apnea w/ CPAP; spinal cord injury; Supraventricular Tachycardia; - PSHx: Back Surgery; Hernia repair; supra pubic catheter insertion; KNEE ARTHROSCOPY; Colon Resection; Hip Arthroplasty, Right; - The history from nurses notes was reviewed: and I agree with what is documented. - Social history: Smoking status: Patient states was never smoker of tobacco. No barriers to communication noted, The patient speaks fluent [place], Speaks appropriately for age. - Family history: Not pertinent. - : The pt / caregiver states he / she is on anticoagulants: Eliquis Home medication list is obtained from a discharge med list. - Exposure Risk Screening:: None identified. - Immunization history:: All immunizations up-to-date. - Social history:: the patient is a non-smoker, the patient does not drink alcohol. ROS: 12:32 All systems are negative except if listed. The constitutional, cardiovascular, pc respiratory and neurological components are also addressed in the HPI. Exam: 12:32 General Appearance: alert, no acute distress. pc 12:32 ENT: ear, nose and throat normal, Dry muc. membranes 12:32 Neck: The exam reveals no acute abnormalities. ROM is normal and painless. No nuchal rigidity is noted.. 12:32 Respiratory: no respiratory distress, normal breath sounds, chest non-tender. 12:32 Cardiovascular: regular pulse rate, regular heart rhythm, normal heart sounds, equal and full pulses bilaterally. 12:32 Abdomen: soft, non-tender, no organomegaly, normal bowel sounds. 12:32 Back: normal inspection. 12:32 Skin: skin color is normal, warm, dry. 12:32 Extremities: The extremities have a grossly normal appearance, are non-tender, without acute ROM abnormalities. 12:32 Neuro: oriented x 3, cranial nerves normal as tested. Vital Signs: 10:22 BP 194 / 88 (auto/); ck1 10:22 BP 194 / 88 (auto/); ck1 10:23 BP 184 / 86 (auto/); ck1 10:33 BP 194 / 88; Pulse 67; Resp 18; Temp 98.3(O); Pulse Ox 97% on R/A; Weight 109.32 kg / ck1 241.01 lbs (R); Height 5 ft. 6 in. (167.64 cm) (R); Pain 3/10; 11:20 Pulse 62 MON; Pulse Ox 98% ; ck1 11:21 Pulse 78 MON; Pulse Ox 96% ; ck1 11:21 Pulse 78 MON; Pulse Ox 96% ; ck1 11:22 BP 166 / 81 (auto/); ck1 11:22 Pulse 74 MON; Pulse Ox 96% ; ck1 11:52 Pulse 66 MON; Pulse Ox 96% ; ck1 11:53 BP 176 / 85 (auto/); ck1 11:53 Pulse 68 MON; Pulse Ox 95% ; ck1 11:53 BP 176 / 85 (auto/); ck1 12:23 BP 148 / 70 (auto/); ck1 12:23 Pulse 70 MON; Pulse Ox 96% ; ck1 12:53 BP 161 / 72 (auto/); ck1 12:53 Pulse 80 MON; Pulse Ox 95% ; ck1 13:07 BP 166 / 78 (auto/); ck1 13:07 Pulse 96 MON; Pulse Ox 96% ; ck1 13:08 BP 186 / 82 (auto/); ck1 13:08 Pulse 96 MON; Pulse Ox 96% ; ck1 13:10 BP 166 / 78 Supine; Pulse 99; ck1 13:10 BP 186 / 82 Sitting; Pulse 96; ck1 13:23 BP 162 / 80 (auto/); ms18 13:38 Pulse 80 MON; Pulse Ox 96% ; ms18 13:53 Pulse 88 MON; Pulse Ox 95% ; ck1 13:53 BP 165 / 72 (auto/); ck1 14:23 BP 167 / 77 (auto/); ck1 14:23 Pulse 82 MON; Pulse Ox 95% ; ck1 15:03 BP 183 / 82; Pulse 101; Resp 18; Temp 96.6(O); Pulse Ox 95% on R/A; Pain 3/10; ck1 10:33 Body Mass Index 38.90 (109.32 kg, 167.64 cm) ck1 MDM: 11:11 IV Saline Lock ordered. pc 11:11 Dining Room Busser/Pulse Ox/q 30 min VS ordered. pc 11:12 CBC with Diff Ordered. EDMS 11:12 MED Profile Ordered. EDMS 11:12 Liver Profile Ordered. EDMS 11:12 Lipase Ordered. EDMS 11:12 Venous Blood Gas (large pea green tube on ice) Ordered. EDMS 11:16 NS 0.9% 1000 ml IV at bolus once ordered. pc 11:16 Ondansetron 4 mg IVP once ordered. pc 11:50 CBC with Diff Reviewed. pc 11:50 MED Profile Reviewed. pc 11:50 Liver Profile Reviewed. pc 11:50 Venous Blood Gas (large pea green tube on ice) Reviewed. pc 11:50 Lipase Reviewed. pc 11:50 Orthostatic VS ordered. pc 12:21 [facility] Payment Agreement was scanned into [employer] and attached to record. jp5 12:21 Financial registration complete. jp5 12:32 Differential diagnosis: Gastroenteritis weakness. Plan: labs, IVF. pc 13:50 Urine Culture Ordered. EDMS 14:27 Data reviewed: old medical records, vital signs, nurses notes, lab test results. Test pc interpretation: LAB - all labs as ordered have been reviewed, interpreted and considered in the overall management of the clinical presentation;. The patient has been re-examined and re-evaluated. The patient's symptoms have markedly improved after treatment. Disposition: The historical points, examination findings, and any diagnostic results supporting the provided diagnosis, were discussed with the patient or legal guardian. The need for outpatient follow up with the provider listed on their discharge instructions was discussed. They were encouraged to return to [facility], or the nearest ED, if symptoms worsen/persist, or for any other questions/concerns. 09/20 14:31 PCR was scanned into [employer] and attached to record. gb Administered Medications: 09/19 11:29 Drug: Ondansetron 4 mg [ondansetron HCl 2 mg/mL intravenous solution (2 mL)] Route: ck1 IVP; Site: left antecubital; 11:30 Drug: NS 0.9% 1000 ml [sodium chloride 0.9 % intravenous solution] Route: IV; Rate: ck1 bolus; Site: left antecubital; 13:09 Follow up: IV Status: Completed infusion ck1 Signatures: Dispatcher [employer] EDMS Shemar Plascencia MD MD pc Barnhardt, Gloria, Reg Reg Gina LomasRN RN ck1 Radha Curiel jp5 The chart was reviewed and I authenticate all verbal orders and agree with the evaluation and treatment provided.Attachments: 12:21 [facility] Payment Agreement jp5 Chart Complete MTDD
--- NOTE | 2016-09-22 10:20 | EDDOCDS ---
Nurse's Notes [facility] Name: Calos Camacho Age: 70 yrs Sex: Male : 1945 Arrival Date: 09/19/2016 Time: 10:16 Bed 18 Private MD: Diagnosis: Other viral enteritis;Chronic kidney disease, stage 3 (moderate);Chronic atrial fibrillation Presentation: 09/19 10:24 Presenting complaint: EMS states: Nausea and vomiting for two days, daughter reports ck1 intermittent confusion. Adult Sepsis Screening: Patient has new or worsening altered mentation (1 point). Patient's respiratory rate is less than 22. Systolic blood pressure is greater than 100. Patient has a qSOFA score of 1- Negative Sepsis Screen. Suicide/Homicide risk assessment- the patient denies having any suicidal and/or homicidal ideations and does not present with any other emotional, behavioral or mental health complaints. Status: Patient is not a donor services team leader or dependent. Transition of care: patient was not received from another setting of care. 10:24 Acuity: GENIE Level 3 ck1 10:24 Method Of Arrival: Ambulance ck1 10:25 Care prior to arrival: Glucose check. 107. ck1 Triage Assessment: 10:34 General: Appears in no apparent distress, comfortable, Behavior is appropriate for age, ck1 cooperative. Pain: Location: abdomen Pain currently is 4 out of 10 on a pain scale. Quality of pain is described as crampy. Neurological: Level of Consciousness is awake, alert, obeys commands, Oriented to person, place, time. Respiratory: Respiratory effort is unlabored, Respiratory pattern is regular, symmetrical. GI: Abdomen is non- distended Reports nausea, vomiting. : Suprapubic catheter in place to gravity drainage Urine is cloudy. Derm: Skin is pink, warm & dry. Historical: - Allergies: SOO INHIBITORS (Hives); Carisoprodol ("didn't work, I got sick"); Hydrochlorothiazide (Unknown); Morphine (Hives); SULFA (SULFONAMIDES) (Hives); Adhesives; - Home Meds: 1. Eliquis 5 mg oral tab 1 tab 2 times per day 2. baclofen 20 mg Oral tab 1 tab 3 times per day 3. bisacodyl 10 mg Rectal supp 1 suppository four times weekly, Tues, Thurs, Sat, Sun 4. Dulcolax (bisacodyl) 5 mg Oral TbEC 1 tab once daily PRN 5. Coreg 3.125 mg Oral tab 1 tab 2 times per day 6. clotrimazole 1 % Topical crea 2 times per day to groin area 7. Doc-Q-Lace 100 mg oral cap 1 cap 2 times per day as needed 8. fenofibrate 150 mg oral cap 1 cap once daily 9. fluticasone 50 mcg/actuation nasal spsn 1 spray once daily 10. gabapentin 600 mg Oral tab 1 tab 3 times per day 11. Lantus 100 unit/mL Sub-Q soln 44 unit nightly 12. Lantus 100 unit/mL Sub-Q soln 39 unit daily 13. Humalog 100 unit/mL Sub-Q soln three times a day sliding scale 14. loratadine 10 mg Oral TbDL 1 tab once daily 15. magnesium oxide 400 mg Oral tab 800 mg twice a day 16. multivitamin Oral tab 1 tablet daily 17. Nitrostat 0.4 mg SL subl 1 tab every 5 minutes as needed 18. nystatin 100,000 unit/gram Topical powd 2 times per day 19. solifenacin 10 mg oral tab 1 tab once daily 20. spironolactone 25 mg Oral tab 1 tab once daily 21. Vitamin D Oral 15596 unit weekly on Sundays - PMHx: Atrial Fib; Constipation, Chronic; Diabetes - IDDM: controlled; Hypercholesterolemia; Paraplegia, traumatic; Sleep Apnea w/ CPAP; spinal cord injury; Supraventricular Tachycardia; - PSHx: Back Surgery; Hernia repair; supra pubic catheter insertion; KNEE ARTHROSCOPY; Colon Resection; Hip Arthroplasty, Right; - The history from nurses notes was reviewed: and I agree with what is documented. - Social history: Smoking status: Patient states was never smoker of tobacco. No barriers to communication noted, The patient speaks fluent Bel[place]ian, Speaks appropriately for age. - Family history: Not pertinent. - : The pt / caregiver states he / she is on anticoagulants: Eliquis Home medication list is obtained from a discharge med list. - Exposure Risk Screening:: None identified. - Immunization history:: All immunizations up-to-date. - Social history:: the patient is a non-smoker, the patient does not drink alcohol. Screenin:33 Screening information is obtained from the patient. Fall risk: At risk due to gait ck1 disturbance, The following interventions are performed due to a positive Fall Risk Screen: Fall Risk is added to Special Handling on the patient Summary Screen. A Fall Risk Bracelet was applied to the patient. Side Rails are placed in the up position. A Call Fenton is given with instruction to call for help when getting out of bed. Fall Alert bracelet is placed on the patient. Assistance ADL's: Requires assistance with meal preparation, this assistance is provided by family members, bathing, assistance is provided by family members, dressing, assistance is provided by family members, toileting, assistance is provided by family members, ambulation, assistance is provided by family members, housework, assistance is provided by family members, medication administration, assistance is provided by family members. Abuse/DV Screen: The patient / caregiver reports he/she is: not in a situation that causes fear, pain or injury. Nutritional screening: No deficits noted. Advance Directives: Currently, there is a health care proxy, Priscilla Llamas (dtr). home support is adequate. Assessment: 10:35 General: see triage note. ck1 11:30 General: Appears in no apparent distress, comfortable, Behavior is appropriate for age, ck1 cooperative. Pain: Location: abdomen Pain currently is 4 out of 10 on a pain scale. Quality of pain is described as crampy. Neurological: Level of Consciousness is awake, alert, obeys commands, Oriented to person, place, time. Respiratory: Respiratory effort is unlabored, Respiratory pattern is regular, symmetrical. GI: Abdomen is non- distended Bowel sounds present X 4 quads. Abd is soft and non tender X 4 quads. : Suprapubic catheter in place to gravity drainage Urine is cloudy. Derm: Skin is pink, warm & dry. 12:26 Reassessment: Patient appears in no apparent distress at this time. ck1 13:44 General: Appears in no apparent distress, comfortable, Behavior is appropriate for age, ms18 cooperative, pleasant. General: Pt in no acute distress. Family at bedside. Will continue to monitor pt. Pain: Denies pain. Neurological: Level of Consciousness is awake, alert, obeys commands. Respiratory: Airway is patent Respiratory effort is even, unlabored. Derm: Skin is pink, warm & dry. 14:44 Reassessment: Patient appears in no apparent distress at this time. ck1 15:02 General: Appears in no apparent distress, comfortable, Behavior is appropriate for age, ck1 cooperative. Pain: Location: abdomen Pain currently is 3 out of 10 on a pain scale. Quality of pain is described as tender. Neurological: Level of Consciousness is awake, alert, obeys commands, Oriented to person, place, time. Respiratory: Respiratory effort is unlabored, Respiratory pattern is regular, symmetrical. GI: Denies nausea, vomiting. Derm: Skin is pink, warm & dry. Vital Signs: 10:22 BP 194 / 88 (auto/); ck1 10:22 BP 194 / 88 (auto/); ck1 10:23 BP 184 / 86 (auto/); ck1 10:33 BP 194 / 88; Pulse 67; Resp 18; Temp 98.3(O); Pulse Ox 97% on R/A; Weight 109.32 kg ck1 (R); Height 5 ft. 6 in. (167.64 cm) (R); Pain 3/10; 11:20 Pulse 62 MON; Pulse Ox 98% ; ck1 11:21 Pulse 78 MON; Pulse Ox 96% ; ck1 11:21 Pulse 78 MON; Pulse Ox 96% ; ck1 11:22 BP 166 / 81 (auto/); ck1 11:22 Pulse 74 MON; Pulse Ox 96% ; ck1 11:52 Pulse 66 MON; Pulse Ox 96% ; ck1 11:53 BP 176 / 85 (auto/); ck1 11:53 Pulse 68 MON; Pulse Ox 95% ; ck1 11:53 BP 176 / 85 (auto/); ck1 12:23 BP 148 / 70 (auto/); ck1 12:23 Pulse 70 MON; Pulse Ox 96% ; ck1 12:53 BP 161 / 72 (auto/); ck1 12:53 Pulse 80 MON; Pulse Ox 95% ; ck1 13:07 BP 166 / 78 (auto/); ck1 13:07 Pulse 96 MON; Pulse Ox 96% ; ck1 13:08 BP 186 / 82 (auto/); ck1 13:08 Pulse 96 MON; Pulse Ox 96% ; ck1 13:10 BP 166 / 78 Supine; Pulse 99; ck1 13:10 BP 186 / 82 Sitting; Pulse 96; ck1 13:23 BP 162 / 80 (auto/); ms18 13:38 Pulse 80 MON; Pulse Ox 96% ; ms18 13:53 Pulse 88 MON; Pulse Ox 95% ; ck1 13:53 BP 165 / 72 (auto/); ck1 14:23 BP 167 / 77 (auto/); ck1 14:23 Pulse 82 MON; Pulse Ox 95% ; ck1 15:03 BP 183 / 82; Pulse 101; Resp 18; Temp 96.6(O); Pulse Ox 95% on R/A; Pain 3/10; ck1 10:33 Body Mass Index 38.90 (109.32 kg, 167.64 cm) ck1 Vitals: 10:33 Log In Time N/A - ambulance arrival. ck1 ED Course: 10:17 Patient visited by Louann Pineda, Rug Sizer. deg 10:17 Yesenia Whitaker,RN is Primary Nurse. deg 10:17 Gina Sorenson,RN is Primary Nurse. deg 10:17 Patient moved to Waiting deg 10:17 Patient moved to 18 deg 10:25 Triage Initiated ck1 10:34 The patient / caregiver is instructed regarding the plan of care and ED course. ck1 10:52 Patient visited by Gina Sorenson RN. ck1 10:52 Inserted saline lock: 20 gauge in left antecubital area and blood collected. The ck1 patient tolerated the procedure well. 10:59 Shemar Plascencia MD is Attending Physician. pc 11:10 Patient visited by Shemar Plascencia MD. pc 11:14 CBC with Diff Sent. ck1 11:14 MED Profile Sent. ck1 11:14 Liver Profile Sent. ck1 11:14 Lipase Sent. ck1 11:29 Patient visited by Gina Sorenson RN. ck1 11:56 Patient visited by Gina Sorenson,DANNA. ck1 12:21 [facility] Payment Agreement was scanned into [employer] and attached to record. jp5 12:24 Patient visited by Gina Sorenson RN. ck1 12:57 Patient visited by Gina Sorenson RN. ck1 13:09 Patient visited by Gina Sorenson RN. ck1 13:44 Patient visited by Jennifer Whitaker RN. ms18 14:30 Maliha Tiwari PA-C is Referral Physician. pc 15:01 Discontinued lock intact, bleeding controlled, pressure dressing applied, No ck1 redness/swelling at site. No procedures done that require assistance. 09/20 14:31 PCR was scanned into [employer] and attached to record. gb Administered Medications: 09/19 11:29 Drug: Ondansetron 4 mg [ondansetron HCl 2 mg/mL intravenous solution (2 mL)] Route: ck1 IVP; Site: left antecubital; 11:30 Drug: NS 0.9% 1000 ml [sodium chloride 0.9 % intravenous solution] Route: IV; Rate: ck1 bolus; Site: left antecubital; 13:09 Follow up: IV Status: Completed infusion ck1 Order Results: Lab Order: CBC with Diff; SPEC'M 09/19/16 10:48 Test: WHITE BLOOD COUNT; Value: 7.6; Range: 4.0-10.0; Units: K/mm3; Status: F Test: RED BLOOD COUNT; Value: 5.90; Range: 4.30-6.10; Units: M/mm3; Status: F Test: HEMOGLOBIN; Value: 17.4; Range: 14.0-18.0; Units: g/dl; Status: F Test: HEMATOCRIT; Value: 49.8; Range: 42.0-52.0; Units: %; Status: F Test: MEAN CORPUSCULAR VOLUME; Value: 84.4; Range: 80.0-96.0; Units: fl; Status: F Test: MEAN CORPUSCULAR HEMOGLOBIN; Value: 29.5; Range: 27.0-33.0; Units: pg; Status: F Test: MEAN CORPUSCULAR HGB CONC; Value: 34.9; Range: 32.0-36.5; Units: g/dl; Status: F Test: RED CELL DISTRIBUTION WIDTH; Value: 14.1; Range: 11.5-14.5; Units: %; Status: F Test: PLATELET COUNT, AUTOMATED; Value: 245; Range: 150-450; Units: k/mm3; Status: F Test: NEUTROPHILS %; Value: 68.8; Range: 36.0-66.0; Abnormal: Above high normal; Units: %; Status: F Test: LYMPH %; Value: 20.8; Range: 24.0-44.0; Abnormal: Below low normal; Units: %; Status: F Test: MONO %; Value: 7.6; Range: 0.0-5.0; Abnormal: Above high normal; Units: %; Status: F Test: EOS %; Value: 1.0; Range: 0.0-3.0; Units: %; Status: F Test: BASO %; Value: 0.2; Range: 0.0-1.0; Units: %; Status: F Test: LARGE UNSTAINED CELL %; Value: 1.6; Range: 0.0-4.0; Units: %; Status: F Test: NEUTROPHILS #; Value: 5.2; Range: 1.8-7.7; Units: K/mm3; Status: F Test: LYMPH #; Value: 1.6; Range: 1.5-4.5; Units: K/mm3; Status: F Test: MONO #; Value: 0.6; Range: 0.0-0.8; Units: K/mm3; Status: F Test: EOS #; Value: 0.1; Range: 0.0-0.50; Units: K/mm3; Status: F Test: BASO #; Value: 0.0; Range: 0.0-0.2; Units: K/mm3; Status: F Test: LARGE UNSTAINED CELL #; Value: 0.1; Range: 0.0-0.4; Units: K/mm3; Status: F Lab Order: [facility]; [facility]' 09/19/16 10:48 Test: GLUCOSE, FASTING; Value: 134; Range: 83-110; Abnormal: Above high normal; Units: MG/DL; Status: F Test: BLOOD UREA NITROGEN; Value: 25; Range: 7-18; Abnormal: Above high normal; Units: MG/DL; Status: F Test: CREATININE FOR GFR; Value: 1.41; Range: 0.70-1.30; Abnormal: Above high normal; Units: MG/DL; Status: F Test: GLOMERULAR FILTRATION RATE; Value: 52.9; Range: >42; Status: F Test: SODIUM LEVEL; Value: 132; Range: 136-145; Abnormal: Below low normal; Units: MEQ/L; Status: F Test: POTASSIUM SERUM; Value: 3.9; Range: 3.5-5.1; Units: MEQ/L; Status: F Test: CHLORIDE LEVEL; Value: 94; Range: 98-107; Abnormal: Below low normal; Units: MEQ/L; Status: F Test: CARBON DIOXIDE LEVEL; Value: 29; Range: 21-32; Units: MEQ/L; Status: F Test: ANION GAP; Value: 9; Range: 8-16; Units: MEQ/L; Status: F Test: CALCIUM LEVEL; Value: 9.7; Range: 8.8-10.2; Units: MG/DL; Status: F Test Note: ; Units are mL/min/1.73 m2 Chronic Kidney Disease Staging per NKF: Stage I & II GFR >=60 Normal to Mildly Decreased Stage III GFR 30-59 Moderately Decreased Stage IV GFR 15-29 Severely Decreased Stage V GFR <15 Very Little GFR Left ESRD GFR <15 on INSOLE TOE SNIPPING MACHINE OPERATOR Lab Order: Liver Profile; SPEC'M 09/19/16 10:48 Test: AST/SGOT; Value: 24; Range: 15-37; Units: U/L; Status: F Test: ALT/SGPT; Value: 26; Range: 12-78; Units: U/L; Status: F Test: ALKALINE PHOSPHATASE; Value: 96; Range: 45-117; Units: U/L; Status: F Test: BILIRUBIN,TOTAL; Value: 0.5; Range: 0.2-1.0; Units: MG/DL; Status: F Test: BILIRUBIN,DIRECT; Value: 0.2; Range: 0.0-0.2; Units: MG/DL; Status: F Test: TOTAL PROTEIN; Value: 8.5; Range: 6.4-8.2; Abnormal: Above high normal; Units: GM/DL; Status: F Test: ALBUMIN; Value: 3.6; Range: 3.2-5.2; Units: GM/DL; Status: F Test: ALBUMIN/GLOBULIN RATIO; Value: 0.73; Range: 1.00-1.93; Abnormal: Below low normal; Status: F Lab Order: Lipase; SPEC'M 09/19/16 10:48 Test: LIPASE; Value: 131; Range: 73-393; Units: U/L; Status: F Lab Order: Venous Blood Gas (large pea green tube on ice); SPEC'M 09/19/16 10:48 Test: VENOUS PH; Value: 7.324; Range: 7.330-7.430; Abnormal: Below low normal; Units: UNITS; Status: F Test: VENOUS PARTIAL PRESSURE CO2; Value: 50.1; Range: 38.0-50.0; Abnormal: Above high normal; Units: mmHg; Status: F Test: VENOUS PARTIAL PRESSURE O2; Value: 37.7; Range: 30.0-50.0; Units: mmHg; Status: F Test: VENOUS TOTAL CO2; Value: 27.0; Range: 24.0-28.0; Units: MEQ/L; Status: F Test: VENOUS HCO3; Value: 25.5; Range: 23.0-27.0; Units: MEQ/L; Status: F Test: VENOUS BASE EXCESS; Value: -1.4; Range: -2.0-2.0; Status: F Test: VENOUS STANDARD HCO3; Value: 22.6; Units: MEQ/L; Status: F Test: VENOUS O2 SATURATION; Value: 71.3; Range: 60.0-80.0; Units: %; Status: F Lab Order: Urine Culture; SPEC'M 09/19/16 14:06 Test: URINE CULTURE; Value: ORGANISM 1: PSEUDOMONAS AERUGINOSA; Status: F Test: URINE CULTURE; Value: PSEUDOMONAS AERUGINOSA; Status: F Test: URINE CULTURE; Value: COLONY COUNT CFU/ml >100,000; Status: F Test: URINE CULTURE; Value: CORYNEBACTERIUM SPECIES; Status: F Test: URINE CULTURE; Value: COLONY COUNT CFU/ml >100,000; Status: F Test: URINE CULTURE; Value: Corynebacterium LINE 4 Many species of Coryneform bacteria are part of the; Status: F Test: URINE CULTURE; Value: Corynebacterium LINE 5 normal ángel of the skin and mucous membranes in; Status: F Test: URINE CULTURE; Value: Corynebacterium LINE 6 humans. Repeated isolation or a coryneform bacterium; Status: F Test: URINE CULTURE; Value: Corynebacterium LINE 7 growing in pure culture may require consultation with; Status: F Test: URINE CULTURE; Value: Corynebacterium LINE 8 an infectious disease specialist. There are currently; Status: F Test: URINE CULTURE; Value: Corynebacterium LINE 9 no susceptibility standards for these organisms.; Status: F Test: URINE CULTURE; Value: ORGANISM 2: CORYNEBACTERIUM SPECIES; Status: F Test: URINE CULTURE; Value: PSEUDOMONAS AERUGINOSA; Status: F Test: URINE CULTURE; Value: COLONY COUNT CFU/ml >100,000; Status: F Test: URINE CULTURE; Value: CORYNEBACTERIUM SPECIES; Status: F Test: URINE CULTURE; Value: COLONY COUNT CFU/ml >100,000; Status: F Test: URINE CULTURE; Value: Corynebacterium LINE 4 Many species of Coryneform bacteria are part of the; Status: F Test: URINE CULTURE; Value: Corynebacterium LINE 5 normal ángel of the skin and mucous membranes in; Status: F Test: URINE CULTURE; Value: Corynebacterium LINE 6 humans. Repeated isolation or a coryneform bacterium; Status: F Test: URINE CULTURE; Value: Corynebacterium LINE 7 growing in pure culture may require consultation with; Status: F Test: URINE CULTURE; Value: Corynebacterium LINE 8 an infectious disease specialist. There are currently; Status: F Test: URINE CULTURE; Value: Corynebacterium LINE 9 no susceptibility standards for these organisms.; Status: F Test: URINE CULTURE; Value: GRAM NEG SENSI - VITEK 80; Status: F Test: URINE CULTURE; Value: Method: VIT2; Status: F Test: URINE CULTURE; Value: GENTAMICIN <=1 S; Status: F Test: URINE CULTURE; Value: NITROFURANTOIN 128 R; Status: F Test: URINE CULTURE; Value: LEVOFLOXACIN >=8 R; Status: F Test: URINE CULTURE; Value: TOBRAMYCIN <=1 S; Status: F Test: URINE CULTURE; Value: CEFTAZIDIME <=1 S; Status: F Test: URINE CULTURE; Value: PIPERACILLIN/TAZOBACTAM <=4 S; Status: F Test: URINE CULTURE; Value: MEROPENEM 0.5 S; Status: F Test: URINE CULTURE; Value: CEFEPIME <=1 S; Status: F Outcome: 14:30 Discharge ordered by Provider. 15:02 Discharge Assessment: Patient awake, alert and oriented x 3. No cognitive and/or ck1 functional deficits noted. Patient verbalized understanding of disposition instructions. patient administered narcotics - no. The following High Risk Discharge criteria are identified: None. Discharged to home with family, via [facility]. Condition: stable. Discharge instructions given to patient, Instructed on discharge instructions, follow up and referral plans. medication usage, Demonstrated understanding of instructions, medications, Pt was receptive of discharge instructions/ teaching. Prescriptions given X 1. No special radiology studies were completed. Property :Personal belongings accompany Pt. 15:18 Patient left the ED. ck1 Addendum: 09/22/2016 10:16 Narrative: Pt contacted regarding urine culture results. Pt states he's not running mcp fevers. Pt informed of PCP contacting Dr Andrade for consult. Signatures: Shemar Plascencia MD MD pc Louann Pineda, Rug Sizer Unit deg Marisol Carpio, RN RN Elen Dobbins, Reg Reg Gina Lomas RN RN ck1 Jennifer Whitaker RN RN ms18 Radha Curiel 5 Chart Complete [facility] CENTERC[facility]bal
--- NOTE | 2016-09-22 11:32 | EDDOCDS ---
Physician Documentation [facility] Name: Calos Camacho Age: 70 yrs Sex: Male : 1945 Arrival Date: 09/19/2016 Time: 10:16 Bed 18 Private MD: Disposition: 09/19 14:27 Critical Care: Critical care not applicable. pc Disposition: 09/19/16 14:30 Discharged to Home/Self Care. Impression: Other viral enteritis, Chronic kidney disease, stage 3 (moderate), Chronic atrial fibrillation. - Condition is Stable. - Discharge Instructions: Clear Liquid Diet, Viral Gastroenteritis. - Prescriptions for ZOFRAN ODT 4 mg - dissolve 1 tablet by ORAL route 4 times per day As needed do not chew, do not swallow whole; 10 tablet. - Medication Reconciliation, Local Pharmacy Hours form. - Follow up: Maliha Tiwari PA-C; When: 2 - 3 days; Reason: Recheck today's complaints, Continuance of care. - Problem is new. - Symptoms have improved. HPI: 12:32 This 70 yrs old Male presents to ER via Ambulance with complaints of pc Abdominal Pain. 12:32 The history is obtained from the patient, the patient's family/friend. The patient pc presents with abdominal pain, vomiting. The symptoms began suddenly 3 days ago. There have been multiple episodes. He developed nausea and vomiting with abdominal cramping 3 days ago and has been unable to tolerate any fluids and has been vomiting up his pills. He was too weak to stand to transfer this morning and has been confused at times, per his daughter. He has not had any fevers or chills, diarrhea or constipation, Resp or symptoms. The patient has experienced similar episodes in the past, a few times. The patient has been recently been admitted at [facility], was discharged last month, for a UTI. Historical: - Allergies: SOO INHIBITORS (Hives); Carisoprodol ("didn't work, I got sick"); Hydrochlorothiazide (Unknown); Morphine (Hives); SULFA (SULFONAMIDES) (Hives); Adhesives; - Home Meds: 1. Eliquis 5 mg oral tab 1 tab 2 times per day 2. baclofen 20 mg Oral tab 1 tab 3 times per day 3. bisacodyl 10 mg Rectal supp 1 suppository four times weekly, Tues, Thurs, Sat, Sun 4. Dulcolax (bisacodyl) 5 mg Oral TbEC 1 tab once daily PRN 5. Coreg 3.125 mg Oral tab 1 tab 2 times per day 6. clotrimazole 1 % Topical crea 2 times per day to groin area 7. Doc-Q-Lace 100 mg oral cap 1 cap 2 times per day as needed 8. fenofibrate 150 mg oral cap 1 cap once daily 9. fluticasone 50 mcg/actuation nasal spsn 1 spray once daily 10. gabapentin 600 mg Oral tab 1 tab 3 times per day 11. Lantus 100 unit/mL Sub-Q soln 44 unit nightly 12. Lantus 100 unit/mL Sub-Q soln 39 unit daily 13. Humalog 100 unit/mL Sub-Q soln three times a day sliding scale 14. loratadine 10 mg Oral TbDL 1 tab once daily 15. magnesium oxide 400 mg Oral tab 800 mg twice a day 16. multivitamin Oral tab 1 tablet daily 17. Nitrostat 0.4 mg SL subl 1 tab every 5 minutes as needed 18. nystatin 100,000 unit/gram Topical powd 2 times per day 19. solifenacin 10 mg oral tab 1 tab once daily 20. spironolactone 25 mg Oral tab 1 tab once daily 21. Vitamin D Oral 27968 unit weekly on Sundays - PMHx: Atrial Fib; Constipation, Chronic; Diabetes - IDDM: controlled; Hypercholesterolemia; Paraplegia, traumatic; Sleep Apnea w/ CPAP; spinal cord injury; Supraventricular Tachycardia; - PSHx: Back Surgery; Hernia repair; supra pubic catheter insertion; KNEE ARTHROSCOPY; Colon Resection; Hip Arthroplasty, Right; - The history from nurses notes was reviewed: and I agree with what is documented. - Social history: Smoking status: Patient states was never smoker of tobacco. No barriers to communication noted, The patient speaks fluent Kyrgyz, Speaks appropriately for age. - Family history: Not pertinent. - : The pt / caregiver states he / she is on anticoagulants: Eliquis Home medication list is obtained from a discharge med list. - Exposure Risk Screening:: None identified. - Immunization history:: All immunizations up-to-date. - Social history:: the patient is a non-smoker, the patient does not drink alcohol. ROS: 12:32 All systems are negative except if listed. The constitutional, cardiovascular, pc respiratory and neurological components are also addressed in the HPI. Exam: 12:32 General Appearance: alert, no acute distress. pc 12:32 ENT: ear, nose and throat normal, Dry muc. membranes 12:32 Neck: The exam reveals no acute abnormalities. ROM is normal and painless. No nuchal rigidity is noted.. 12:32 Respiratory: no respiratory distress, normal breath sounds, chest non-tender. 12:32 Cardiovascular: regular pulse rate, regular heart rhythm, normal heart sounds, equal and full pulses bilaterally. 12:32 Abdomen: soft, non-tender, no organomegaly, normal bowel sounds. 12:32 Back: normal inspection. 12:32 Skin: skin color is normal, warm, dry. 12:32 Extremities: The extremities have a grossly normal appearance, are non-tender, without acute ROM abnormalities. 12:32 Neuro: oriented x 3, cranial nerves normal as tested. Vital Signs: 10:22 BP 194 / 88 (auto/); ck1 10:22 BP 194 / 88 (auto/); ck1 10:23 BP 184 / 86 (auto/); ck1 10:33 BP 194 / 88; Pulse 67; Resp 18; Temp 98.3(O); Pulse Ox 97% on R/A; Weight 109.32 kg / ck1 241.01 lbs (R); Height 5 ft. 6 in. (167.64 cm) (R); Pain 3/10; 11:20 Pulse 62 MON; Pulse Ox 98% ; ck1 11:21 Pulse 78 MON; Pulse Ox 96% ; ck1 11:21 Pulse 78 MON; Pulse Ox 96% ; ck1 11:22 BP 166 / 81 (auto/); ck1 11:22 Pulse 74 MON; Pulse Ox 96% ; ck1 11:52 Pulse 66 MON; Pulse Ox 96% ; ck1 11:53 BP 176 / 85 (auto/); ck1 11:53 Pulse 68 MON; Pulse Ox 95% ; ck1 11:53 BP 176 / 85 (auto/); ck1 12:23 BP 148 / 70 (auto/); ck1 12:23 Pulse 70 MON; Pulse Ox 96% ; ck1 12:53 BP 161 / 72 (auto/); ck1 12:53 Pulse 80 MON; Pulse Ox 95% ; ck1 13:07 BP 166 / 78 (auto/); ck1 13:07 Pulse 96 MON; Pulse Ox 96% ; ck1 13:08 BP 186 / 82 (auto/); ck1 13:08 Pulse 96 MON; Pulse Ox 96% ; ck1 13:10 BP 166 / 78 Supine; Pulse 99; ck1 13:10 BP 186 / 82 Sitting; Pulse 96; ck1 13:23 BP 162 / 80 (auto/); ms18 13:38 Pulse 80 MON; Pulse Ox 96% ; ms18 13:53 Pulse 88 MON; Pulse Ox 95% ; ck1 13:53 BP 165 / 72 (auto/); ck1 14:23 BP 167 / 77 (auto/); ck1 14:23 Pulse 82 MON; Pulse Ox 95% ; ck1 15:03 BP 183 / 82; Pulse 101; Resp 18; Temp 96.6(O); Pulse Ox 95% on R/A; Pain 3/10; ck1 10:33 Body Mass Index 38.90 (109.32 kg, 167.64 cm) ck1 MDM: 11:11 IV Saline Lock ordered. pc 11:11 Halal Butcher/Pulse Ox/q 30 min VS ordered. pc 11:12 CBC with Diff Ordered. EDMS 11:12 MED Profile Ordered. EDMS 11:12 Liver Profile Ordered. EDMS 11:12 Lipase Ordered. EDMS 11:12 Venous Blood Gas (large pea green tube on ice) Ordered. EDMS 11:16 NS 0.9% 1000 ml IV at bolus once ordered. pc 11:16 Ondansetron 4 mg IVP once ordered. pc 11:50 CBC with Diff Reviewed. pc 11:50 MED Profile Reviewed. pc 11:50 Liver Profile Reviewed. pc 11:50 Venous Blood Gas (large pea green tube on ice) Reviewed. pc 11:50 Lipase Reviewed. pc 11:50 Orthostatic VS ordered. pc 12:21 [facility] Payment Agreement was scanned into [employer] and attached to record. jp5 12:21 Financial registration complete. jp5 12:32 Differential diagnosis: Gastroenteritis weakness. Plan: labs, IVF. pc 13:50 Urine Culture Ordered. EDMS 14:27 Data reviewed: old medical records, vital signs, nurses notes, lab test results. Test pc interpretation: LAB - all labs as ordered have been reviewed, interpreted and considered in the overall management of the clinical presentation;. The patient has been re-examined and re-evaluated. The patient's symptoms have markedly improved after treatment. Disposition: The historical points, examination findings, and any diagnostic results supporting the provided diagnosis, were discussed with the patient or legal guardian. The need for outpatient follow up with the provider listed on their discharge instructions was discussed. They were encouraged to return to [facility], or the nearest ED, if symptoms worsen/persist, or for any other questions/concerns. 09/20 14:31 PCR was scanned into [employer] and attached to record. gb Administered Medications: 09/19 11:29 Drug: Ondansetron 4 mg [ondansetron HCl 2 mg/mL intravenous solution (2 mL)] Route: ck1 IVP; Site: left antecubital; 11:30 Drug: NS 0.9% 1000 ml [sodium chloride 0.9 % intravenous solution] Route: IV; Rate: ck1 bolus; Site: left antecubital; 13:09 Follow up: IV Status: Completed infusion ck1 Signatures: Dispatcher [employer] EDMS Shemar Plascencia MD MD pc Barnhardt, Gloria, Reg Reg Gina LomasRN RN ck1 Radha Cuirel jp5 The chart was reviewed and I authenticate all verbal orders and agree with the evaluation and treatment provided.Attachments: 12:21 [facility] Payment Agreement jp5 Chart Complete MTDD
--- NOTE | 2016-09-22 11:32 | EDDOCDS ---
Physician Documentation [facility] Name: Calos Camacho Age: 70 yrs Sex: Male : 1945 Arrival Date: 09/19/2016 Time: 10:16 Bed 18 Private MD: Disposition: 09/19 14:27 Critical Care: Critical care not applicable. pc Disposition: 09/19/16 14:30 Discharged to Home/Self Care. Impression: Other viral enteritis, Chronic kidney disease, stage 3 (moderate), Chronic atrial fibrillation. - Condition is Stable. - Discharge Instructions: Clear Liquid Diet, Viral Gastroenteritis. - Prescriptions for ZOFRAN ODT 4 mg - dissolve 1 tablet by ORAL route 4 times per day As needed do not chew, do not swallow whole; 10 tablet. - Medication Reconciliation, Local Pharmacy Hours form. - Follow up: Maliha Tiwari PA-C; When: 2 - 3 days; Reason: Recheck today's complaints, Continuance of care. - Problem is new. - Symptoms have improved. HPI: 12:32 This 70 yrs old Male presents to ER via Ambulance with complaints of pc Abdominal Pain. 12:32 The history is obtained from the patient, the patient's family/friend. The patient pc presents with abdominal pain, vomiting. The symptoms began suddenly 3 days ago. There have been multiple episodes. He developed nausea and vomiting with abdominal cramping 3 days ago and has been unable to tolerate any fluids and has been vomiting up his pills. He was too weak to stand to transfer this morning and has been confused at times, per his daughter. He has not had any fevers or chills, diarrhea or constipation, Resp or symptoms. The patient has experienced similar episodes in the past, a few times. The patient has been recently been admitted at [facility], was discharged last month, for a UTI. Historical: - Allergies: SOO INHIBITORS (Hives); Carisoprodol ("didn't work, I got sick"); Hydrochlorothiazide (Unknown); Morphine (Hives); SULFA (SULFONAMIDES) (Hives); Adhesives; - Home Meds: 1. Eliquis 5 mg oral tab 1 tab 2 times per day 2. baclofen 20 mg Oral tab 1 tab 3 times per day 3. bisacodyl 10 mg Rectal supp 1 suppository four times weekly, Tues, Thurs, Sat, Sun 4. Dulcolax (bisacodyl) 5 mg Oral TbEC 1 tab once daily PRN 5. Coreg 3.125 mg Oral tab 1 tab 2 times per day 6. clotrimazole 1 % Topical crea 2 times per day to groin area 7. Doc-Q-Lace 100 mg oral cap 1 cap 2 times per day as needed 8. fenofibrate 150 mg oral cap 1 cap once daily 9. fluticasone 50 mcg/actuation nasal spsn 1 spray once daily 10. gabapentin 600 mg Oral tab 1 tab 3 times per day 11. Lantus 100 unit/mL Sub-Q soln 44 unit nightly 12. Lantus 100 unit/mL Sub-Q soln 39 unit daily 13. Humalog 100 unit/mL Sub-Q soln three times a day sliding scale 14. loratadine 10 mg Oral TbDL 1 tab once daily 15. magnesium oxide 400 mg Oral tab 800 mg twice a day 16. multivitamin Oral tab 1 tablet daily 17. Nitrostat 0.4 mg SL subl 1 tab every 5 minutes as needed 18. nystatin 100,000 unit/gram Topical powd 2 times per day 19. solifenacin 10 mg oral tab 1 tab once daily 20. spironolactone 25 mg Oral tab 1 tab once daily 21. Vitamin D Oral 73435 unit weekly on Sundays - PMHx: Atrial Fib; Constipation, Chronic; Diabetes - IDDM: controlled; Hypercholesterolemia; Paraplegia, traumatic; Sleep Apnea w/ CPAP; spinal cord injury; Supraventricular Tachycardia; - PSHx: Back Surgery; Hernia repair; supra pubic catheter insertion; KNEE ARTHROSCOPY; Colon Resection; Hip Arthroplasty, Right; - The history from nurses notes was reviewed: and I agree with what is documented. - Social history: Smoking status: Patient states was never smoker of tobacco. No barriers to communication noted, The patient speaks fluent Korean, Speaks appropriately for age. - Family history: Not pertinent. - : The pt / caregiver states he / she is on anticoagulants: Eliquis Home medication list is obtained from a discharge med list. - Exposure Risk Screening:: None identified. - Immunization history:: All immunizations up-to-date. - Social history:: the patient is a non-smoker, the patient does not drink alcohol. ROS: 12:32 All systems are negative except if listed. The constitutional, cardiovascular, pc respiratory and neurological components are also addressed in the HPI. Exam: 12:32 General Appearance: alert, no acute distress. pc 12:32 ENT: ear, nose and throat normal, Dry muc. membranes 12:32 Neck: The exam reveals no acute abnormalities. ROM is normal and painless. No nuchal rigidity is noted.. 12:32 Respiratory: no respiratory distress, normal breath sounds, chest non-tender. 12:32 Cardiovascular: regular pulse rate, regular heart rhythm, normal heart sounds, equal and full pulses bilaterally. 12:32 Abdomen: soft, non-tender, no organomegaly, normal bowel sounds. 12:32 Back: normal inspection. 12:32 Skin: skin color is normal, warm, dry. 12:32 Extremities: The extremities have a grossly normal appearance, are non-tender, without acute ROM abnormalities. 12:32 Neuro: oriented x 3, cranial nerves normal as tested. Vital Signs: 10:22 BP 194 / 88 (auto/); ck1 10:22 BP 194 / 88 (auto/); ck1 10:23 BP 184 / 86 (auto/); ck1 10:33 BP 194 / 88; Pulse 67; Resp 18; Temp 98.3(O); Pulse Ox 97% on R/A; Weight 109.32 kg / ck1 241.01 lbs (R); Height 5 ft. 6 in. (167.64 cm) (R); Pain 3/10; 11:20 Pulse 62 MON; Pulse Ox 98% ; ck1 11:21 Pulse 78 MON; Pulse Ox 96% ; ck1 11:21 Pulse 78 MON; Pulse Ox 96% ; ck1 11:22 BP 166 / 81 (auto/); ck1 11:22 Pulse 74 MON; Pulse Ox 96% ; ck1 11:52 Pulse 66 MON; Pulse Ox 96% ; ck1 11:53 BP 176 / 85 (auto/); ck1 11:53 Pulse 68 MON; Pulse Ox 95% ; ck1 11:53 BP 176 / 85 (auto/); ck1 12:23 BP 148 / 70 (auto/); ck1 12:23 Pulse 70 MON; Pulse Ox 96% ; ck1 12:53 BP 161 / 72 (auto/); ck1 12:53 Pulse 80 MON; Pulse Ox 95% ; ck1 13:07 BP 166 / 78 (auto/); ck1 13:07 Pulse 96 MON; Pulse Ox 96% ; ck1 13:08 BP 186 / 82 (auto/); ck1 13:08 Pulse 96 MON; Pulse Ox 96% ; ck1 13:10 BP 166 / 78 Supine; Pulse 99; ck1 13:10 BP 186 / 82 Sitting; Pulse 96; ck1 13:23 BP 162 / 80 (auto/); ms18 13:38 Pulse 80 MON; Pulse Ox 96% ; ms18 13:53 Pulse 88 MON; Pulse Ox 95% ; ck1 13:53 BP 165 / 72 (auto/); ck1 14:23 BP 167 / 77 (auto/); ck1 14:23 Pulse 82 MON; Pulse Ox 95% ; ck1 15:03 BP 183 / 82; Pulse 101; Resp 18; Temp 96.6(O); Pulse Ox 95% on R/A; Pain 3/10; ck1 10:33 Body Mass Index 38.90 (109.32 kg, 167.64 cm) ck1 MDM: 11:11 IV Saline Lock ordered. pc 11:11 Gas Booster Engineer/Pulse Ox/q 30 min VS ordered. pc 11:12 CBC with Diff Ordered. EDMS 11:12 MED Profile Ordered. EDMS 11:12 Liver Profile Ordered. EDMS 11:12 Lipase Ordered. EDMS 11:12 Venous Blood Gas (large pea green tube on ice) Ordered. EDMS 11:16 NS 0.9% 1000 ml IV at bolus once ordered. pc 11:16 Ondansetron 4 mg IVP once ordered. pc 11:50 CBC with Diff Reviewed. pc 11:50 MED Profile Reviewed. pc 11:50 Liver Profile Reviewed. pc 11:50 Venous Blood Gas (large pea green tube on ice) Reviewed. pc 11:50 Lipase Reviewed. pc 11:50 Orthostatic VS ordered. pc 12:21 [facility] Payment Agreement was scanned into [employer] and attached to record. jp5 12:21 Financial registration complete. jp5 12:32 Differential diagnosis: Gastroenteritis weakness. Plan: labs, IVF. pc 13:50 Urine Culture Ordered. EDMS 14:27 Data reviewed: old medical records, vital signs, nurses notes, lab test results. Test pc interpretation: LAB - all labs as ordered have been reviewed, interpreted and considered in the overall management of the clinical presentation;. The patient has been re-examined and re-evaluated. The patient's symptoms have markedly improved after treatment. Disposition: The historical points, examination findings, and any diagnostic results supporting the provided diagnosis, were discussed with the patient or legal guardian. The need for outpatient follow up with the provider listed on their discharge instructions was discussed. They were encouraged to return to [facility], or the nearest ED, if symptoms worsen/persist, or for any other questions/concerns. 09/20 14:31 PCR was scanned into [employer] and attached to record. gb Administered Medications: 09/19 11:29 Drug: Ondansetron 4 mg [ondansetron HCl 2 mg/mL intravenous solution (2 mL)] Route: ck1 IVP; Site: left antecubital; 11:30 Drug: NS 0.9% 1000 ml [sodium chloride 0.9 % intravenous solution] Route: IV; Rate: ck1 bolus; Site: left antecubital; 13:09 Follow up: IV Status: Completed infusion ck1 Signatures: Dispatcher [id number] EDMS Shemar Plascencia MD MD pc Barnhardt, Gloria, Reg Reg Gina LomasRN RN ck1 Radha Curiel jp5 The chart was reviewed and I authenticate all verbal orders and agree with the evaluation and treatment provided.Attachments: 12:21 [facility] Payment Agreement jp5 Chart Complete MTDD
== END 2016-09-19 15:18 | disposition home or self-care (01) ==
LOC: M ED 10:16
DX: A08.4 Viral intestinal infection, unspecified (principal); I48.91 Unspecified atrial fibrillation; N18.3 Chronic kidney disease, stage 3 (moderate); K59.00 Constipation, unspecified; E11.9 Type 2 diabetes mellitus without complications; E78.00 Pure hypercholesterolemia, unspecified; G82.20 Paraplegia, unspecified; G47.30 Sleep apnea, unspecified; I47.1 Supraventricular tachycardia; Z79.4 Long term (current) use of insulin; Z79.899 Other long term (current) drug therapy; Z79.01 Long term (current) use of anticoagulants; Z88.8 Allergy status to other drugs, medicaments and biological substances; Z88.2 Allergy status to sulfonamides
CPT/HCPCS: 36415; 80048; 80076; 82803; 83690; 85025; 87088; 87186; 93041; 96361; 96374; 99284; J2405

== ENCOUNTER → 2016-09-24 | Outpatient (REF) | payer MEDICARE, MEDICAID ==
[2016-09-24 19:12] LABS: MEAN CORPUSCULAR HEMOGLOBIN 28.4 pg (27.0-33.0); MEAN CORPUSCULAR HGB CONC 32.1 g/dl (32.0-36.5); MEAN CORPUSCULAR VOLUME 88.5 fl (80.0-96.0); RED CELL DISTRIBUTION WIDTH 15.2 % (11.5-14.5); RETIC HEMOGLOBIN CONTENT CHr 31.4 PG (24-36); RETICULOCYTE % ADVIA2120 2.1 % (0.5-1.5)
[2016-09-24 19:50] LABS: ALBUMIN 3.3 GM/DL (3.2-5.2); ALBUMIN/GLOBULIN RATIO 0.8 (1.00-1.93); BILIRUBIN,TOTAL 0.4 MG/DL (0.2-1.0); CALCIUM LEVEL 9.8 MG/DL (8.8-10.2); CREATININE FOR GFR 1.4 MG/DL (0.70-1.30); GLOMERULAR FILTRATION RATE 53.3 (>42); TOTAL PROTEIN 7.4 GM/DL (6.4-8.2)
[2016-09-24 19:52] LABS: FOLATE 7.3 NG/ML (>5.4)
== END ==
LOC: M SFHCADAM 15:57
PROVIDERS: ATTEND Family Medicine
DX: D64.9 Anemia, unspecified (principal); I10 Essential (primary) hypertension; E11.65 Type 2 diabetes mellitus with hyperglycemia; E78.5 Hyperlipidemia, unspecified; E55.9 Vitamin D deficiency, unspecified
CPT/HCPCS: 80053; 80061; 82043; 82306; 82607; 82728; 82746; 83036; 83550; 85027; 85046; G0463

== ENCOUNTER → 2016-10-29 | Outpatient (CLI) | payer MEDICARE, MEDICAID ==
--- NOTE | 2016-10-29 16:21 | REP ---
Clinical: Acute bronchitis. Dyspnea. Technique: AP and lateral views of the chest. Findings: Mediastinum and cardiac silhouette are stable and within normal limits. Lung borrego are clear without acute consolidation, effusion, or pneumothorax. Skeletal structures demonstrate age-related osteopenia and degenerative change. Impression: Stable chest x-ray no obvious acute cardiopulmonary process. Signed by Michael Man MD 10/29/2016 04:12 P
== END ==
LOC: M ADAMS 15:34
PROVIDERS: ATTEND Physician Assistant Medical
DX: J20.9 Acute bronchitis, unspecified (principal)

== ENCOUNTER → 2016-12-10 | Outpatient (REF) | payer MEDICARE, MEDICAID, OTHER ==
[~2016-12-10] MED LIST changes: -COLA100C PO; +COLA100C3 PO; -LORT1ELX PO; +LORT1ELX8 PO
[2016-12-10 10:27] LABS: MEAN CORPUSCULAR HEMOGLOBIN 29.1 pg (27.0-33.0); MEAN CORPUSCULAR HGB CONC 33.7 g/dl (32.0-36.5); MEAN CORPUSCULAR VOLUME 86.5 fl (80.0-96.0); RED CELL DISTRIBUTION WIDTH 13.7 % (11.5-14.5); WHITE BLOOD COUNT 7.4 K/mm3 (4.0-10.0)
[2016-12-10 10:57] LABS: ALBUMIN 3.5 GM/DL (3.2-5.2); ALBUMIN/GLOBULIN RATIO 0.83 (1.00-1.93); BILIRUBIN,TOTAL 0.3 MG/DL (0.2-1.0); CALCIUM LEVEL 9.9 MG/DL (8.8-10.2); CREATININE FOR GFR 1.46 MG/DL (0.70-1.30); GLOMERULAR FILTRATION RATE 50.7 (>42); POTASSIUM SERUM 4.4 MEQ/L (3.5-5.1); TOTAL PROTEIN 7.7 GM/DL (6.4-8.2)
== END ==
LOC: SKLABADC 09:13
PROVIDERS: ATTEND Family Medicine
DX: E13.29 Other specified diabetes mellitus with other diabetic kidney complication (principal); I48.2 Chronic atrial fibrillation; I10 Essential (primary) hypertension

== ENCOUNTER → 2017-01-06 | Outpatient (REF) | payer MEDICARE | LOC: EEVIPCON 08:55 → M SFHCADAM 08:55 | PROVIDERS: ATTEND Physician Assistant | DX: L03.90 Cellulitis, unspecified (principal); Z79.899 Other long term (current) drug therapy ==

== ENCOUNTER → 2017-01-26 | Outpatient (CLI) | payer MEDICARE ==
--- NOTE | 2017-01-26 12:14 | REP ---
Three-phase radionuclide bone scan of the lumbar spine: The study is performed with intravenous infusion of 20.6 mCi of technetium labeled MDP. On the skeletal phase of the study, there is focal increased uptake along the right lateral margins of the L3 and L4 vertebra. There is no uptake on the soft tissue or vascular phases of the study. Impression: Focal skeletal uptake along the right lateral margins of the L3 and L4 vertebra. Signed by John Lin MD 01/26/2017 12:05 P
== END ==
LOC: M RAD 08:48
PROVIDERS: ATTEND Orthopaedic Surgery
DX: M54.5 Low back pain (principal)
CPT/HCPCS: 78315; A9503

== ENCOUNTER → 2017-03-03 | Outpatient (REF) | payer MEDICARE, OTHER ==
[~2017-03-03] MED LIST changes: -ACET-654 PO; +ACET1TAB17 PO; -BACL-67 PO; +BACL1TAB9 PO; +CIPR-249 PO; -COLA100C3 PO; +COLA100C5 PO; +FURO20TA2 PO; +KEFL500C17 PO; -KEFL500C7 PO; +LEVA1TAB PO; +LEVA1TAB2 PO; -LEVA250T PO; -MACR100C3 PO; +MACR100C43 PO; -MUCI600T34 PO; +MUCI600T37 PO; +NASA0.053; -NYST100024 TOP; +NYST1POW9 TOP; +RISATAB3 PO; -SENO8.6T2 PO; +SENO8.6T5 PO; -VESI10TA PO; +VESI10TA2 PO; +ZICAGEL2
== END ==
LOC: EEVIPCON 10:16 → M LAB REF 10:16
PROVIDERS: ATTEND Family Medicine
DX: R82.90 Unspecified abnormal findings in urine (principal); Z43.5 Encounter for attention to cystostomy

== ENCOUNTER 2017-03-12 20:13 | Emergency (ER) | payer MEDICARE, OTHER ==
[~2017-03-12] VITALS: Ht 172.7 cm; Wt 108.2 kg
[~2017-03-12 20:13] MED LIST changes: -CIPR-249 PO; -FURO20TA2 PO; -LEVA1TAB2 PO; -NASA0.053; -RISATAB3 PO; -ZICAGEL2
[2017-03-12] MEDS ORDERED: NS 500 ML IV ONE (21:00)
[2017-03-12] MEDS ORDERED: CIPROFLOXACIN 500 MG TAB PO ONE (21:00)
[2017-03-12] MEDS ORDERED: cefTRIAXone SOD 2 GM in D5W MINI-BAG PLUS 50 ML IV ONE (21:00)
[2017-03-12] MEDS ORDERED: CIPR-249 PO (21:03)
[2017-03-12 22:02] VITALS: BP 173/69
[2017-04-29] MEDS ORDERED: INSULANT SC (10:44)
== END 2017-03-12 22:05 | disposition home or self-care (01) ==
LOC: M ED 20:13
DX: Z29.8 Encounter for other specified prophylactic measures (principal); R10.9 Unspecified abdominal pain; E11.9 Type 2 diabetes mellitus without complications; I10 Essential (primary) hypertension; R51 Headache; R11.0 Nausea; Z79.01 Long term (current) use of anticoagulants
CPT/HCPCS: 81001; 87088; 87186; 96365; 99284; J0696

== ENCOUNTER 2017-03-14 13:20 | Observation (INO) | payer MEDICARE, OTHER ==
[~2017-03-14] VITALS: Ht 167.6 cm; Wt 106.2 kg
[~2017-03-14 13:20] MED LIST changes: +CIPR-249 PO
[2017-03-14] MEDS ORDERED: FURO20TA2 PO (13:32)
[2017-03-14] MEDS ORDERED: NS 500 ML IV ONE (14:30)
[2017-03-14] MEDS ORDERED: ONDANSETRON 4MG/2ML VIAL (J2405) IV ONE (14:30)
[2017-03-14 14:48] LABS: BASO # 0.1 K/mm3 (0.0-0.2); BASO % 0.6 % (0.0-1.0); EOS # 0.1 K/mm3 (0.0-0.50); EOS % 0.9 % (0.0-3.0); LARGE UNSTAINED CELL # 0.1 K/mm3 (0.0-0.4); LARGE UNSTAINED CELL % 0.6 % (0.0-4.0); LYMPH # 1.6 K/mm3 (1.5-4.5); LYMPH % 14.9 % (24.0-44.0); MEAN CORPUSCULAR HEMOGLOBIN 29.1 pg (27.0-33.0); MEAN CORPUSCULAR HGB CONC 34.2 g/dl (32.0-36.5); MONO # 0.4 K/mm3 (0.0-0.8); PLATELET COUNT, AUTOMATED 233 k/mm3 (150-450); RED CELL DISTRIBUTION WIDTH 13.8 % (11.5-14.5); WHITE BLOOD COUNT 10.1 K/mm3 (4.0-10.0)
[2017-03-14 15:15] LABS: CREATININE FOR GFR 1.4 MG/DL (0.70-1.30); GLOMERULAR FILTRATION RATE 53.2 (>42); POTASSIUM SERUM 4.1 MEQ/L (3.5-5.1)
[2017-03-14] MEDS ORDERED: fentaNYL 100 MCG/2 ML INJECTION (J3010) IV ONE (15:15)
[2017-03-14] MEDS ORDERED: cefTRIAXone SOD 1 GM in D5W MINI-BAG PLUS 50 ML IV ONE (16:00)
[2017-03-14] MEDS ORDERED: NS 1,000 ML IV SCH (16:15)
[2017-03-14] MEDS ORDERED: METOCLOPRAMIDE INJ 10MG/2ML VIAL (J2765) IV ONE (16:15)
[2017-03-14] MEDS ORDERED: ACETAMINOPHEN TAB 650MG DOSE (2X325MG) PO ONE (16:45)
--- NOTE | 2017-03-14 17:20 | HPEPDOC ---
General Date of Admission 03-14-17 Chief Complaint The patient is a 71-year-old male admitted with a reason for visit of Urinary Problem. History of Present Illness 71 y/o male with pmhx of HTN, diabetes, hyperlipidemia, atrial fibrillation, recurrent UTI, suprapubic catheter monitored by urology who presents to ED with 2-3 day hx of worsening pelvic pain, pt reports he presented to his ED the end of February 2017 w/ pelvic pain and U/A was sent, he was diagnosed with UTI and started on abx. Pt reports that the pain in his pelvis has been increasing, he is also nauseas and has a decreased appetite. denied h/a, chills, n/v, diarrhea , pain with urination/defecation, blood in stool but does admit that today when he woke up he noted blood in his kent bag. Home Medications Scheduled Apixaban Base (Eliquis) 5 Mg Tab, 5 MG PO BID, (Reported) Baclofen (Baclofen) 20 Mg Tab, 20 MG PO TID, (Reported) Bisacodyl (Dulcolax) 10 Mg Sup, 10 MG MO 4XWK, (Reported) TUESDAY,TUESDAY,TUESDAY,TUESDAY Carvedilol (Carvedilol) 3.125 Mg Tab, 3.125 MG PO BID, (Reported) Cephalexin Monohydrate (Keflex) 500 Mg Cap, 500 MG PO TID Ciprofloxacin HCl (Cipro) 500 Mg Tab, 500 MG PO BID Clotrimazole (Clotrimazole AF) 1 % Cre, 0 TOP BID, (Reported) APPLY TO GROIN AREA Fenofibrate (Fenofibrate) 145 Mg Tab, 145 MG PO DAILY, (Reported) Fluticasone Propionate (Fluticasone Propionate 0.05%) 120 [place]/16 Gm Naspr, 1 SPRAY NA DAILY, (Reported) PER NOSTRIL Furosemide (Furosemide) 20 Mg Tab, DAILY, (Reported) Gabapentin (Neurontin) 600 Mg Tab, 600 MG PO TID, (Reported) Insulin Glargine (Lantus) 1 Units/0.01 Ml Susp, 52 UNITS SC QHS, (Reported) Insulin Glargine (Lantus) 1 Units/0.01 Ml Susp, 52 UNITS SC QAM, (Reported) Insulin Human Lispro (Humalog) 1 Units/0.01 Ml Inj, 0 SC AC, (Reported) PER SLIDING SCALE Loratadine (Loratadine) 10 Mg Tab, 10 MG PO DAILY, (Reported) Magnesium Oxide (Magnesium Oxide) 400 Mg Tab, 800 MG PO BID, (Reported) Multivitamins *[facility] STOCKED* (Thera M Plus *[facility] STOCKED*) 1 Tab Tab, 1 TAB PO DAILY, (Reported) Nystatin (Nystatin Powder) 100,000 Unit/Gm Pow, 0 TOP BID, (Reported) APPLY TO GROIN AREA Solifenacin Succinate (Vesicare) 10 Mg Tab, 10 MG PO DAILY, (Reported) Spironolactone (Spironolactone) 25 Mg Tab, 25 MG PO DAILY, (Reported) Vitamin D (Drisdol) 50,000 Unit Cap, 50,000 UNIT PO QWEEK, (Reported) TUESDAY Scheduled PRN Bisacodyl (Dulcolax) 5 Mg Tab, 5 MG PO DAILY PRN for CONSTIPATION, (Reported) Docusate Sodium (Colace) 100 Mg Cap, 100 MG PO BID PRN for CONSTIPATION, ( Reported) Nitroglycerin (Nitrostat) 0.4 Mg Subl, 0.4 MG SL Q5MP PRN for CHEST PAIN, ( Reported) Allergies Coded Allergies: Carisoprodol (Verified Allergy, Intermediate, HIVES AND RASH, 12/06/12) Morphine (Verified Allergy, Mild, HIVES AND RASH AT SIGHT; LIKELY HISTAMINE RELEASE REACTION, 12/06/12) ONCE FLUSHED THE SIGHT CLEARED UP; LIKELEY JUST A LOCALIZE HISTAMINE RELEASE - NOT AN IgE MEDIATED RXN. POSSIBLY JUST A SIMPLE SARBJIT ALTHOUGH I WILL CALL IT A MILD ALLERGIC REACTION SOO Inhibitors (Verified Allergy, Unknown, UNSURE OF REACTION, 12/26/12) Hydrochlorothiazide (Verified Allergy, Unknown, UNSURE OF REACTION, ) Soap (Verified Allergy, Unknown, MASTISOL - RASH, 12/06/12) Sulfa Antibiotics (Unverified Allergy, Unknown, HIVES, 08/05/16) TAPE (Verified Allergy, Unknown, STERISTRIPS, 02/10/04) Past Medical History Medical History atrial fibrillation history of recurrent UTI HTN DM2 Family History Significant Family History: No pertinent family hx Social History * Smoker: Denies Alcohol: Denies Drugs: denies Review of Symptoms Constitutional: Reports: Malaise, Denies: Chills, Fever, Night Sweats Eyes: Denies: Pain, Vision change, Conjunctivae inflammation, Eyelid inflammation ENT: Denies: Head Aches, Ear Pain Skin: Denies: Rash, Lesions, Jaundice, Bruising Pulmonary: Denies: Dyspnea, Cough, Pleuritic Chest Pain Cardiovascular: Denies: Chest Pain, Palpitations Gastrointestinal: Reports: Nausea, Abdominal Pain, Denies: Vomiting, Diarrhea, Constipation Genitourinary: Reports: Hematuria, Denies: Dysuria, Frequency, Incontinence Hematologic: Denies: Bruising Neurological: Denies: Weakness, Numbness Psych: Reports: Mood Normal Physical Examination General Exam: Positive: Alert, Cooperative, No Acute Distress Eye Exam: Positive: Conjunctiva & lids normal, EOMI, Negative: Sclera icteric ENT Exam: Positive: Atraumatic, Mucous membr. moist/pink, Pharynx Normal Neck Exam: Positive: Supple Chest Exam: Positive: Clear to auscultation, Normal air movement, Negative: Rhonchi, Wheezing, Diminished Heart Exam: Positive: Rate Normal, Normal S1, Normal S2, Negative: Gallops, Murmurs, Rubs Telemetry: Positive: No significant arrhythmia Abdomen Exam: Positive: Normal bowel sounds, Soft, Tenderness (generalized) Extremity Exam: Negative: Cyanosis, Edema Vital Signs Vital Signs Date Time Temp Pulse Resp B/P (MAP) Pulse Ox O2 Delivery O2 Flow Rate FiO2 03/14/17 16:43 100.3 95 20 148/79 (102) 95 Room Air Laboratory Data Labs 24H Laboratory Tests 2 03/14/17 10:42: Urine Appearance CLOUDYH, Urine Color KENDALL, Urine pH 7.0, Urine Specific [place] 1.012, Urine Protein 3+H, Urine Glucose (UA) 3+H, Urine Ketones TRACEH, Urine Urobilinogen 4.0H, Urine Bilirubin NEGATIVE, Urine Leukocyte Esterase 2+H , Urine Blood 1+H, Urine Nitrite POSITIVE, Urine WBC (Auto) TNTCH, Urine RBC ( Auto) 35H, Urine Hyaline Casts (Auto) 0, Urine Bacteria (Auto) 3+H, Urine Squamous Epithelial Cells 1, Urine Amorphous Sediment SMALLH, Urine Mucus (Auto ) SMALL, Urine Sperm (Auto) 03/14/17 14:29: White Blood Count 10.1H, Red Blood Count 5.81, Hemoglobin 16.9, Hematocrit 49.4 , Mean Corpuscular Volume 85.0, Mean Corpuscular Hemoglobin 29.1, Mean Corpuscular Hemoglobin Concent 34.2, Red Cell Distribution Width 13.8, Platelet Count 233, Neutrophils (%) (Auto) 79.0H, Lymphocytes (%) (Auto) 14.9L, Monocytes (%) (Auto) 4.0, Eosinophils (%) (Auto) 0.9, Basophils (%) (Auto) 0.6, Neutrophils # (Auto) 8.0H, Lymphocytes # (Auto) 1.6, Monocytes # (Auto) 0.4, Eosinophils # (Auto) 0.1, Basophils # (Auto) 0.1, Large Unclassified Cells % 0.6 , Large Unclassified Cells # 0.1, Anion Gap 7L, Glomerular Filtration Rate 53.2 , Lactic Acid Level 1.9, Blood Urea Nitrogen 15, Creatinine 1.40H, Sodium Level 130L, Potassium Level 4.1, Chloride Level 96L, Carbon Dioxide Level 27, Calcium Level 10.0 CBC/BMP Laboratory Tests 03/14/17 14:29 Red Blood Count 5.81, Mean Corpuscular Volume 85.0, Mean Corpuscular Hemoglobin 29.1, Mean Corpuscular Hemoglobin Concent 34.2, Red Cell Distribution Width 13.8 , Neutrophils (%) (Auto) 79.0 H, Lymphocytes (%) (Auto) 14.9 L, Monocytes (%) ( Auto) 4.0, Eosinophils (%) (Auto) 0.9, Basophils (%) (Auto) 0.6, Neutrophils # ( Auto) 8.0 H, Lymphocytes # (Auto) 1.6, Monocytes # (Auto) 0.4, Eosinophils # ( Auto) 0.1, Basophils # (Auto) 0.1, Calcium Level 10.0 Microbiology Microbiology 03/14/17 Blood Culture, Received Pending 03/14/17 Blood Culture, Received Pending Problems (1) UTI (urinary tract infection) Status: Acute Response to Treatment: Stable Problem Text: urine from 6-29-17 + for E.coli sensitive to ceftriaxone, will continue WBC 10.1 lactic neg blood cx pending u/a from today pending (2) A-fib Status: Chronic Response to Treatment: Stable Problem Text: continue carvedilol and anticoagulation admit to telemetry floor (3) Hypertension Status: Chronic Response to Treatment: Stable Problem Text: continue home medications (4) CKD (chronic kidney disease) Status: Chronic Response to Treatment: Stable Problem Text: cr 1.4 baseline since 08/20, prior to this seems baseline was about 1-1.2 will begin gentle fluid hydration NS @75 (5) DM2 (diabetes mellitus, type 2) Status: Chronic Response to Treatment: Stable Problem Text: sliding scale (6) DVT prophylaxis Status: Acute Response to Treatment: Stable Problem Text: scd teds Plan / VTE VTE Prophylaxis Ordered?: Yes GME ATTESTATION GME ATTESTATION My preceptor for this patient encounter was physically present in the building during the encounter and was fully available. As needed, all aspects of the patient interview, examination, medical decision making process, and medical care plan development were reviewed and approved by the preceptor. Preceptor is aware and concurs with the plan as stated in the body of this note and will attest to such by his/her cosignature. CARLOS CRUZ DO Mar 14, 2017 17:20
[2017-03-14] MEDS ORDERED: DEXTROSE 50% 50 ML SYRINGE IV PRN (17:30)
[2017-03-14] MEDS ORDERED: ONDANSETRON 4MG/2ML VIAL (J2405) IV PRN (17:30)
[2017-03-14] MEDS ORDERED: GLUCAGON FOR INJ 1 MG VIAL (J1610) SC PRN (17:30)
[2017-03-14] MEDS ORDERED: GLUCOSE 4 GM CHEW TABLET PO PRN (17:30)
[2017-03-14] MEDS ORDERED: KEFL500C17 PO (18:16)
[2017-03-14] MEDS ORDERED: NASA0.053 (18:16)
[2017-03-14 19:40] VITALS: BP 178/102
[2017-03-14] MEDS ORDERED: NYSTATIN 100,000 UNITS/GM TOPICAL PWD 15 GM TOP PRN (19:45)
[2017-03-14] MEDS ORDERED: NITROGLYCERIN 0.4 MG SUBL TABLET SL PRN (19:45)
[2017-03-14] MEDS ORDERED: FLUTICASONE PROP 0.05% NASAL SPRAY 16 GM (FLONASE) PRN (19:45)
[2017-03-14] MEDS ORDERED: OXYMETAZOLINE NASAL SPRAY (AFRIN) PRN (19:45)
[2017-03-14] MEDS: NS 1,000 ML IV SCH (20:22)
[2017-03-14] MEDS: HumaLOG INSULIN (NovoLOG) PER UNIT SC SCH ×2 (21:00)
[2017-03-14 22:00] VITALS: BP 178/98
[2017-03-14] MEDS: GABAPENTIN 300 MG CAP PO SCH (22:04)
[2017-03-14] MEDS: BACLOFEN 10 MG TAB PO SCH (22:05)
[2017-03-14] MEDS: CARVedilol 3.125 MG TAB PO SCH (22:05)
[2017-03-14] MEDS: APIXABAN 5 MG TAB (ELIQUIS) PO SCH (22:06)
[2017-03-14] MEDS: MAGNESIUM OXIDE 400 MG TAB (MAG-OX) PO SCH (22:06)
[2017-03-14] MEDS: LORATADINE 10 MG TAB PO SCH (22:06)
[2017-03-14] MEDS: LEVEMIR (INSULIN DETEMIR) 1 UNITS/0.01ML SC SCH (22:07)
[2017-03-14] MEDS: SOLIFENACIN 5 MG TAB PO SCH (23:07)
[2017-03-15 06:00] VITALS: BP 162/90
[2017-03-15 06:23] LABS: BASO % 0.3 % (0.0-1.0); EOS # 0.1 K/mm3 (0.0-0.50); EOS % 0.8 % (0.0-3.0); LARGE UNSTAINED CELL # 0.1 K/mm3 (0.0-0.4); LYMPH # 1.8 K/mm3 (1.5-4.5); LYMPH % 20.4 % (24.0-44.0); MEAN CORPUSCULAR HEMOGLOBIN 29.2 pg (27.0-33.0); MEAN CORPUSCULAR HGB CONC 34.5 g/dl (32.0-36.5); MEAN CORPUSCULAR VOLUME 84.8 fl (80.0-96.0); MONO # 0.5 K/mm3 (0.0-0.8); MONO % 6.3 % (0.0-5.0); NEUTROPHILS % 71.2 % (36.0-66.0); PLATELET COUNT, AUTOMATED 217 k/mm3 (150-450); RED CELL DISTRIBUTION WIDTH 13.7 % (11.5-14.5); WHITE BLOOD COUNT 8.4 K/mm3 (4.0-10.0)
[2017-03-15 06:35] LABS: ANION GAP 6 MEQ/L (8-16); BLOOD UREA NITROGEN 14 MG/DL (7-18); CALCIUM LEVEL 9.1 MG/DL (8.8-10.2); CARBON DIOXIDE LEVEL 27 MEQ/L (21-32); CHLORIDE LEVEL 100 MEQ/L (98-107); CREATININE FOR GFR 1.15 MG/DL (0.70-1.30); GLOMERULAR FILTRATION RATE > 60.0 (>42); GLUCOSE, FASTING 134 MG/DL (83-110); POTASSIUM SERUM 3.8 MEQ/L (3.5-5.1); SODIUM LEVEL 133 MEQ/L (136-145)
[2017-03-15] MEDS: NS 1,000 ML IV SCH (08:25)
[2017-03-15] MEDS: FENOFIBRATE 145 MG TAB (TRICOR) PO SCH (08:26)
[2017-03-15] MEDS: APIXABAN 5 MG TAB (ELIQUIS) PO SCH ×2 (08:26→21:32)
[2017-03-15] MEDS: CARVedilol 3.125 MG TAB PO SCH ×2 (08:26→21:32)
[2017-03-15] MEDS: MAGNESIUM OXIDE 400 MG TAB (MAG-OX) PO SCH ×2 (08:26→21:31)
[2017-03-15] MEDS: GABAPENTIN 300 MG CAP PO SCH ×3 (08:26→21:31)
[2017-03-15] MEDS: HumaLOG INSULIN (NovoLOG) PER UNIT SC SCH ×4 (08:27→20:32)
[2017-03-15] MEDS: LEVEMIR (INSULIN DETEMIR) 1 UNITS/0.01ML SC SCH (08:27)
[2017-03-15] MEDS: BACLOFEN 10 MG TAB PO SCH ×3 (08:27→21:31)
[2017-03-15] MEDS: DOCUSATE SODIUM 100 MG CAP PO PRN ×2 (08:33→21:41)
[2017-03-15] MEDS: BISACODYL 5 MG TAB PO PRN (08:33)
--- NOTE | 2017-03-15 10:10 | IPNPDOC ---
Subjective Date Seen The patient was seen on 03/15/17. Subjective Chief Complaint/HPI The patient is a 71-year-old male admitted with a reason for visit of Uti Due To Urinary Indwelling Catheter. Events since last encounter Pt this morning states that he is feeling a little bit better. He does have low pelvic, suprapubic discomfort. No BM since . General: Reports: Fatigue Constitutional: Denies: Chills, Fever Pulmonary: Denies: Dyspnea, Cough Cardiovascular: Denies: Chest Pain, Palpitations Gastrointestinal: Reports: Abdominal Pain, Constipation, Denies: Nausea, Vomiting, Diarrhea Neurological: Reports: Weakness Psych: Reports: Mood Normal Objective Physical Examination General Exam: Positive: Alert, Cooperative, No Acute Distress ENT Exam: Positive: Atraumatic, Mucous membr. moist/pink, Pharynx Normal Neck Exam: Positive: Supple Chest Exam: Positive: Clear to auscultation, Normal air movement, Negative: Rhonchi, Wheezing, Diminished Heart Exam: Positive: Rate Normal, Normal S1, Normal S2, Negative: Gallops, Murmurs, Rubs Telemetry: Positive: No significant arrhythmia Abdomen Exam: Positive: Normal bowel sounds, Soft, Tenderness (generalized) Extremity Exam: Negative: Cyanosis, Edema Assessment /Plan Problems (1) UTI (urinary tract infection) Status: Acute Response to Treatment: Stable Problem Text: 03/15 - Cont with Rocephin IV, afebrile, nl WBC. Blood cx pending. 03/14 urine from 6-29-17 + for E.coli sensitive to ceftriaxone, will continue WBC 10.1 lactic neg blood cx pending u/a from today pending (2) A-fib Status: Chronic Response to Treatment: Stable Problem Text: continue carvedilol and anticoagulation admit to telemetry floor (3) Hypertension Status: Chronic Response to Treatment: Stable Problem Text: continue home medications (4) CKD (chronic kidney disease) Status: Chronic Response to Treatment: Stable Problem Text: cr 1.4 baseline since 08/20, prior to this seems baseline was about 1-1.2 will begin gentle fluid hydration NS @75 (5) DM2 (diabetes mellitus, type 2) Status: Chronic Response to Treatment: Stable Problem Text: sliding scale (6) DVT prophylaxis Status: Acute Response to Treatment: Stable Problem Text: scd teds Plan/VTE VTE Prophylaxis Ordered?: Yes VS, I&O, [facility]H, [facility] Vital Signs/I&O Vital Signs Date Time Temp Pulse Resp B/P (MAP) Pulse Ox O2 Delivery O2 Flow Rate FiO2 03/15/17 09:00 Room Air 03/15/17 06:00 97.5 75 19 162/90 (708) 94 I&O- Last 24 Hours up to 6 AM 03/15/17 06:00 Intake Total 1063 ml Output Total 1525 ml Balance -462 ml Laboratory Data 24H LABS Laboratory Tests 2 03/14/17 10:42: Urine Appearance CLOUDYH, Urine Color KEND[place], Urine pH 7.0, Urine Specific [place] 1.012, Urine Protein 3+H, Urine Glucose (UA) 3+H, Urine Ketones TRACEH, Urine Urobilinogen 4.0H, Urine Bilirubin NEGATIVE, Urine Leukocyte Esterase 2+H , Urine Blood 1+H, Urine Nitrite POSITIVE, Urine WBC (Auto) TNTCH, Urine RBC ( Auto) 35H, Urine Hyaline Casts (Auto) 0, Urine Bacteria (Auto) 3+H, Urine Squamous Epithelial Cells 1, Urine Amorphous Sediment SMALLH, Urine Mucus (Auto ) SMALL, Urine Sperm (Auto) 03/14/17 14:29: White Blood Count 10.1H, Red Blood Count 5.81, Hemoglobin 16.9, Hematocrit 49.4 , Mean Corpuscular Volume 85.0, Mean Corpuscular Hemoglobin 29.1, Mean Corpuscular Hemoglobin Concent 34.2, Red Cell Distribution Width 13.8, Platelet Count 233, Neutrophils (%) (Auto) 79.0H, Lymphocytes (%) (Auto) 14.9L, Monocytes (%) (Auto) 4.0, Eosinophils (%) (Auto) 0.9, Basophils (%) (Auto) 0.6, Neutrophils # (Auto) 8.0H, Lymphocytes # (Auto) 1.6, Monocytes # (Auto) 0.4, Eosinophils # (Auto) 0.1, Basophils # (Auto) 0.1, Large Unclassified Cells % 0.6 , Large Unclassified Cells # 0.1, Anion Gap 7L, Glomerular Filtration Rate 53.2 , Lactic Acid Level 1.9, Blood Urea Nitrogen 15, Creatinine 1.40H, Sodium Level 130L, Potassium Level 4.1, Chloride Level 96L, Carbon Dioxide Level 27, Calcium Level 10.0 7/10/17 17:50: Bedside Glucose (Misc Panel) 189H 03/14/17 20:33: Bedside Glucose (Misc Panel) 197H 03/15/17 03:15: Bedside Glucose (Misc Panel) 163H 03/15/17 05:50: White Blood Count 8.4, Red Blood Count 5.23, Hemoglobin 15.3, Hematocrit 44.4, Mean Corpuscular Volume 84.8, Mean Corpuscular Hemoglobin 29.2, Mean Corpuscular Hemoglobin Concent 34.5, Red Cell Distribution Width 13.7, Platelet Count 217, Neutrophils (%) (Auto) 71.2H, Lymphocytes (%) (Auto) 20.4L, Monocytes (%) (Auto) 6.3H, Eosinophils (%) (Auto) 0.8, Basophils (%) (Auto) 0.3 , Neutrophils # (Auto) 6.0, Lymphocytes # (Auto) 1.8, Monocytes # (Auto) 0.5, Eosinophils # (Auto) 0.1, Basophils # (Auto) 0.0, Large Unclassified Cells % 1.0 , Large Unclassified Cells # 0.1, Anion Gap 6L, Glomerular Filtration Rate > 60.0, Blood Urea Nitrogen 14, Creatinine 1.15, Sodium Level 133L, Potassium Level 3.8, Chloride Level 100, Carbon Dioxide Level 27, Calcium Level 9.1 CBC/BMP Laboratory Tests 03/14/17 14:29 Red Blood Count 5.81, Mean Corpuscular Volume 85.0, Mean Corpuscular Hemoglobin 29.1, Mean Corpuscular Hemoglobin Concent 34.2, Red Cell Distribution Width 13.8 , Neutrophils (%) (Auto) 79.0 H, Lymphocytes (%) (Auto) 14.9 L, Monocytes (%) ( Auto) 4.0, Eosinophils (%) (Auto) 0.9, Basophils (%) (Auto) 0.6, Neutrophils # ( Auto) 8.0 H, Lymphocytes # (Auto) 1.6, Monocytes # (Auto) 0.4, Eosinophils # ( Auto) 0.1, Basophils # (Auto) 0.1, Calcium Level 10.0 03/15/17 05:50 Red Blood Count 5.23, Mean Corpuscular Volume 84.8, Mean Corpuscular Hemoglobin 29.2, Mean Corpuscular Hemoglobin Concent 34.5, Red Cell Distribution Width 13.7 , Neutrophils (%) (Auto) 71.2 H, Lymphocytes (%) (Auto) 20.4 L, Monocytes (%) ( Auto) 6.3 H, Eosinophils (%) (Auto) 0.8, Basophils (%) (Auto) 0.3, Neutrophils # (Auto) 6.0, Lymphocytes # (Auto) 1.8, Monocytes # (Auto) 0.5, Eosinophils # ( Auto) 0.1, Basophils # (Auto) 0.0, Calcium Level 9.1 Microbiology Microbiology 03/14/17 Blood Culture, Received Pending 03/14/17 Blood Culture, Received Pending JACK CAMARGO PA-C Mar 15, 2017 10:10
[2017-03-15 14:00] VITALS: BP 166/88
[2017-03-15] MEDS: BISACODYL 10 MG SUPP PR PRN (14:13)
[2017-03-15] MEDS: cefTRIAXone SOD 1 GM in D5W MINI-BAG PLUS 50 ML IV SCH (15:48)
[2017-03-15] MEDS: SOLIFENACIN 5 MG TAB PO SCH (21:31)
[2017-03-15] MEDS: LORATADINE 10 MG TAB PO SCH (21:31)
[2017-03-15 22:00] VITALS: BP 138/70
[2017-03-16] MEDS: NS 1,000 ML IV SCH ×2 (03:42→12:16)
[2017-03-16 06:00] VITALS: BP 144/88
[2017-03-16 06:47] LABS: BASO % 0.5 % (0.0-1.0); EOS % 1.8 % (0.0-3.0); LARGE UNSTAINED CELL % 1.9 % (0.0-4.0); LYMPH # 2.2 K/mm3 (1.5-4.5); LYMPH % 33.6 % (24.0-44.0); MEAN CORPUSCULAR HEMOGLOBIN 29.3 pg (27.0-33.0); MEAN CORPUSCULAR HGB CONC 33.9 g/dl (32.0-36.5); MEAN CORPUSCULAR VOLUME 86.3 fl (80.0-96.0); MONO % 7.3 % (0.0-5.0); NEUTROPHILS # 3.4 K/mm3 (1.8-7.7); NEUTROPHILS % 54.9 % (36.0-66.0); PLATELET COUNT, AUTOMATED 183 k/mm3 (150-450); RED CELL DISTRIBUTION WIDTH 13.9 % (11.5-14.5); WHITE BLOOD COUNT 6.1 K/mm3 (4.0-10.0)
[2017-03-16 06:48] LABS: EOS # 0.1 K/mm3 (0.0-0.50); LARGE UNSTAINED CELL # 0.1 K/mm3 (0.0-0.4); MONO # 0.5 K/mm3 (0.0-0.8)
[2017-03-16 07:05] LABS: ANION GAP 5 MEQ/L (8-16); BLOOD UREA NITROGEN 17 MG/DL (7-18); CARBON DIOXIDE LEVEL 27 MEQ/L (21-32); CHLORIDE LEVEL 104 MEQ/L (98-107); CREATININE FOR GFR 1.23 MG/DL (0.70-1.30); GLOMERULAR FILTRATION RATE > 60.0 (>42); GLUCOSE, FASTING 179 MG/DL (83-110); POTASSIUM SERUM 4.1 MEQ/L (3.5-5.1); SODIUM LEVEL 136 MEQ/L (136-145)
[2017-03-16] MEDS: LEVEMIR (INSULIN DETEMIR) 1 UNITS/0.01ML SC SCH ×2 (08:42→21:25)
[2017-03-16] MEDS: CARVedilol 3.125 MG TAB PO SCH ×2 (08:43→21:30)
[2017-03-16] MEDS: MAGNESIUM OXIDE 400 MG TAB (MAG-OX) PO SCH ×2 (08:43→21:25)
[2017-03-16] MEDS: FENOFIBRATE 145 MG TAB (TRICOR) PO SCH (08:43)
[2017-03-16] MEDS: GABAPENTIN 300 MG CAP PO SCH ×3 (08:43→21:25)
[2017-03-16] MEDS: APIXABAN 5 MG TAB (ELIQUIS) PO SCH ×2 (08:43→21:25)
[2017-03-16] MEDS: BACLOFEN 10 MG TAB PO SCH ×3 (08:43→21:24)
[2017-03-16] MEDS: HumaLOG INSULIN (NovoLOG) PER UNIT SC SCH ×4 (08:44→21:17)
[2017-03-16] MEDS: BISACODYL 10 MG SUPP PR PRN (08:47)
[2017-03-16] MEDS: BISACODYL 5 MG TAB PO PRN (08:47)
[2017-03-16] MEDS: DOCUSATE SODIUM 100 MG CAP PO PRN ×2 (08:47→21:24)
--- NOTE | 2017-03-16 11:05 | IPNPDOC ---
Subjective Date Seen The patient was seen on 03/16/17. Subjective Chief Complaint/HPI The patient is a 71-year-old male admitted with a reason for visit of Uti Due To Urinary Indwelling Catheter. Events since last encounter No new issues or concerns. Feels well Constitutional: Denies: Chills, Fever Pulmonary: Denies: Dyspnea, Cough Cardiovascular: Denies: Chest Pain, Palpitations, Orthopnea Gastrointestinal: Reports: Constipation, Denies: Nausea, Vomiting, Abdominal Pain, Diarrhea Objective Physical Examination General Exam: Positive: Alert, Cooperative, No Acute Distress Chest Exam: Positive: Clear to auscultation, Normal air movement, Negative: Rhonchi, Wheezing, Diminished Heart Exam: Positive: Rate Normal, Normal S1, Normal S2, Negative: Gallops, Murmurs, Rubs Telemetry: Positive: No significant arrhythmia Abdomen Exam: Positive: Normal bowel sounds, Soft Extremity Exam: Negative: Cyanosis, Edema Assessment /Plan Problems (1) UTI (urinary tract infection) Status: Acute Response to Treatment: Stable Problem Text: 03/16 - Rocephin - change to po in am. Blood cultures negative 03/15 - Cont with Rocephin IV, afebrile, nl WBC. Blood cx pending. 03/14 urine from --17 + for E.coli sensitive to ceftriaxone, will continue WBC 10.1 lactic neg blood cx pending u/a from today pending (2) A-fib Status: Chronic Response to Treatment: Stable Problem Text: continue carvedilol and anticoagulation admit to telemetry floor (3) Hypertension Status: Chronic Response to Treatment: Stable Problem Text: continue home medications (4) CKD (chronic kidney disease) Status: Chronic Response to Treatment: Stable Problem Text: cr 1.4 baseline since 08/20, prior to this seems baseline was about 1-1.2 will begin gentle fluid hydration NS @75 (5) DM2 (diabetes mellitus, type 2) Status: Chronic Response to Treatment: Stable Problem Text: sliding scale (6) DVT prophylaxis Status: Acute Response to Treatment: Stable Problem Text: scd teds (7) Constipation Status: Chronic Problem Text: add Miralax Plan/VTE VTE Prophylaxis Ordered?: Yes Plan Family Medicine Attending Note: I saw and examined Mr. Camacho this morning; I d/w RIANA Downey and I agree with her note above. Per PT note, patient has help at home and if we can confirm that he appropriate support systems in place, he is safe for discharge with home PT referral. I placed a PFS consult to confirm this and we will transition to PO antibiotics tomorrow and hopefully discharge home tomorrow (DEREK). Disposition D/C home in am if safe per PT VS, I&O, 24H, [facility] Vital Signs/I&O Vital Signs Date Time Temp Pulse Resp B/P (MAP) Pulse Ox O2 Delivery O2 Flow Rate FiO2 03/16/17 09:00 Room Air 03/16/17 06:00 97.0 71 18 144/88 (106) 95 I&O- Last 24 Hours up to 6 AM 03/16/17 06:00 Intake Total 2735 ml Output Total 2850 ml Balance -115 ml Laboratory Data 24H LABS Laboratory Tests 2 03/15/17 11:29: Bedside Glucose (Misc Panel) 133H 03/16/17 06:18: White Blood Count 6.1, Red Blood Count 5.14, Hemoglobin 15.0, Hematocrit 44.3, Mean Corpuscular Volume 86.3, Mean Corpuscular Hemoglobin 29.3, Mean Corpuscular Hemoglobin Concent 33.9, Red Cell Distribution Width 13.9, Platelet Count 183, Neutrophils (%) (Auto) 54.9, Lymphocytes (%) (Auto) 33.6, Monocytes ( %) (Auto) 7.3H, Eosinophils (%) (Auto) 1.8, Basophils (%) (Auto) 0.5, Neutrophils # (Auto) 3.4, Lymphocytes # (Auto) 2.2, Monocytes # (Auto) 0.5, Eosinophils # (Auto) 0.1, Basophils # (Auto) 0.0, Large Unclassified Cells % 1.9 , Large Unclassified Cells # 0.1, Anion Gap 5L, Glomerular Filtration Rate > 60.0, Blood Urea Nitrogen 17, Creatinine 1.23, Sodium Level 136, Potassium Level 4.1, Chloride Level 104, Carbon Dioxide Level 27, Calcium Level 9.0 CBC/BMP Laboratory Tests 03/16/17 06:18 Red Blood Count 5.14, Mean Corpuscular Volume 86.3, Mean Corpuscular Hemoglobin 29.3, Mean Corpuscular Hemoglobin Concent 33.9, Red Cell Distribution Width 13.9 , Neutrophils (%) (Auto) 54.9, Lymphocytes (%) (Auto) 33.6, Monocytes (%) (Auto ) 7.3 H, Eosinophils (%) (Auto) 1.8, Basophils (%) (Auto) 0.5, Neutrophils # ( Auto) 3.4, Lymphocytes # (Auto) 2.2, Monocytes # (Auto) 0.5, Eosinophils # (Auto ) 0.1, Basophils # (Auto) 0.0, Calcium Level 9.0 Microbiology Microbiology 03/14/17 Blood Culture - Preliminary, Resulted No growth after 24 hours . All specim... 03/14/17 Blood Culture - Preliminary, Resulted No growth after 24 hours . All specim... BYRON COLEY PA-C Mar 16, 2017 11:05 MAREK FAULKNER MD Mar 16, 2017 14:50
[2017-03-16] MEDS: MIRALAX *UNIT DOSE* 17GM PACKET PO SCH (12:40)
[2017-03-16 14:00] VITALS: BP 130/62
[2017-03-16] MEDS: cefTRIAXone SOD 1 GM in D5W MINI-BAG PLUS 50 ML IV SCH (15:14)
[2017-03-16] MEDS: SOLIFENACIN 5 MG TAB PO SCH (21:24)
[2017-03-16] MEDS: LORATADINE 10 MG TAB PO SCH (21:25)
[2017-03-16 22:00] VITALS: BP 140/84
[2017-03-17 06:00] VITALS: BP 138/72
[2017-03-17 07:18] LABS: BASO # 0.1 K/mm3 (0.0-0.2); BASO % 0.9 % (0.0-1.0); EOS # 0.1 K/mm3 (0.0-0.50); LARGE UNSTAINED CELL # 0.1 K/mm3 (0.0-0.4); LARGE UNSTAINED CELL % 1.8 % (0.0-4.0); LYMPH # 2.2 K/mm3 (1.5-4.5); LYMPH % 32.9 % (24.0-44.0); MEAN CORPUSCULAR HEMOGLOBIN 29.1 pg (27.0-33.0); MEAN CORPUSCULAR VOLUME 85.7 fl (80.0-96.0); MONO # 0.4 K/mm3 (0.0-0.8); MONO % 6.5 % (0.0-5.0); NEUTROPHILS # 3.7 K/mm3 (1.8-7.7); NEUTROPHILS % 55.9 % (36.0-66.0); PLATELET COUNT, AUTOMATED 202 k/mm3 (150-450); RED CELL DISTRIBUTION WIDTH 13.6 % (11.5-14.5); WHITE BLOOD COUNT 6.6 K/mm3 (4.0-10.0)
[2017-03-17 07:34] LABS: ANION GAP 6 MEQ/L (8-16); BLOOD UREA NITROGEN 20 MG/DL (7-18); CALCIUM LEVEL 9.1 MG/DL (8.8-10.2); CARBON DIOXIDE LEVEL 28 MEQ/L (21-32); CHLORIDE LEVEL 101 MEQ/L (98-107); CREATININE FOR GFR 1.11 MG/DL (0.70-1.30); GLOMERULAR FILTRATION RATE > 60.0 (>42); GLUCOSE, FASTING 215 MG/DL (83-110); POTASSIUM SERUM 4.3 MEQ/L (3.5-5.1); SODIUM LEVEL 135 MEQ/L (136-145)
[2017-03-17] MEDS: MIRALAX *UNIT DOSE* 17GM PACKET PO SCH (08:47)
[2017-03-17] MEDS: BACLOFEN 10 MG TAB PO SCH (08:48)
[2017-03-17] MEDS: APIXABAN 5 MG TAB (ELIQUIS) PO SCH (08:48)
[2017-03-17] MEDS: GABAPENTIN 300 MG CAP PO SCH (08:48)
[2017-03-17 08:49] VITALS: BP 140/62
[2017-03-17] MEDS: CARVedilol 3.125 MG TAB PO SCH (08:49)
[2017-03-17] MEDS: FENOFIBRATE 145 MG TAB (TRICOR) PO SCH (08:49)
[2017-03-17] MEDS: MAGNESIUM OXIDE 400 MG TAB (MAG-OX) PO SCH (08:49)
[2017-03-17] MEDS: BISACODYL 10 MG SUPP PR PRN (08:49)
[2017-03-17] MEDS: HumaLOG INSULIN (NovoLOG) PER UNIT SC SCH ×2 (08:50→12:52)
[2017-03-17] MEDS: LEVEMIR (INSULIN DETEMIR) 1 UNITS/0.01ML SC SCH (08:51)
--- NOTE | 2017-03-18 07:58 | DSES ---
DATE OF ADMISSION: 03/14/2017 DATE OF DISCHARGE: 03/17/2017 PRIMARY CARE PROVIDER: Dr. Leo Schreiber ATTENDING: Dr. Clarissa Collins HISTORY: This is a 71-year-old male patient with a chronic suprapubic indwelling Nuñez catheter who presented to [facility] emergency room after 2-3 days of progressive illness after being started on oral antibiotics at home, but failing to improve for a urinary tract infection secondary to E. Coli that was sensitive to Rocephin. On presentation to the emergency room, he had a white blood cell count of 10.1 and lactic acid was negative. Blood cultures were obtained. He was admitted to the hospital for further management and monitoring. During his hospitalization, he did remain medically stable. He did receive gentle IV fluid hydration secondary to a mild acute kidney injury with a creatinine of 1.4 on admission. He has been on IV Rocephin. He will be discharged home on oral Keflex for which he has a prescription already at home. He has been seen by physical therapy as well as [facility] ([facility]). He has adequate home care coordinated at home already. He is getting aggressive bowel care in the hospital as he has not been moving his bowels as usual since he has been here. DISCHARGE DIAGNOSES: 1. Urinary tract infection. 2. Chronic indwelling Nuñez catheter. 3. Chronic kidney disease Stage III. 4. Diabetes mellitus type 2. 5. Hypertension. 6. Atrial fibrillation. 7. Constipation. DISCHARGE MEDICATIONS: - Keflex 500 mg by mouth three times a day - Eliquis 5 mg by mouth twice a day - baclofen 20 mg by mouth three times a day - bisacodyl 10 mg per rectum four times weekly - bisacodyl 5 mg by mouth daily as needed for constipation - carvedilol 3.125 mg by mouth twice a day - clotrimazole topically twice a day as needed for rash or itching - Colace 100 mg by mouth twice a day as needed for constipation - fenofibrate 145 mg by mouth daily - fluticasone nasal spray before bed as needed for congestion - furosemide 20 mg daily - gabapentin 600 mg by mouth three times a day - insulin 52 units subcutaneous twice a day - loratadine 10 mg before bed - magnesium oxide 800 mg by mouth twice a day - saline nasal spray before bed as needed - nitroglycerin 0.4 mg sublingually every 5 minutes as needed for chest pain with maximum dose of 3 - Nystatin powder topically twice daily as needed for rash - VESIcare 10 mg by mouth before bed - Spironolactone 12.5 mg by mouth daily - vitamin D 50,000 units by mouth weekly DISCHARGE PLAN: To followup with Dr. Schreiber in one week. Activity should be as tolerated. Diet should be no added salt.
[2017-04-29] MEDS ORDERED: INSULANT SC (10:44)
== END 2017-03-17 14:40 | disposition home or self-care (01) ==
LOC: M ED 13:20 → M ED INP 17:42 → M MSPAV 19:40
PROVIDERS: ADMIT Internal Medicine; ATTEND Family Medicine
DX: N39.0 Urinary tract infection, site not specified (principal); Z96.0 Presence of urogenital implants; N18.3 Chronic kidney disease, stage 3 (moderate); E11.9 Type 2 diabetes mellitus without complications; I10 Essential (primary) hypertension; Z88.2 Allergy status to sulfonamides; I48.91 Unspecified atrial fibrillation; K59.00 Constipation, unspecified; Z79.02 Long term (current) use of antithrombotics/antiplatelets; Z79.4 Long term (current) use of insulin; Z79.899 Other long term (current) drug therapy; Z88.8 Allergy status to other drugs, medicaments and biological substances
CPT/HCPCS: 36415; 80048; 81001; 83605; 85025; 87040; 96365; 96375; 96376; 97161; 99284; G0378; G8978; G8979; G8980; J0696; J2405; J2765; J3010

== ENCOUNTER → 2017-03-29 | Outpatient (REF) | payer MEDICARE, OTHER, MEDICAID ==
[~2017-03-29] MED LIST changes: +FURO20TA2 PO; +LEVA1TAB2 PO; +NASA0.053; +RISATAB3 PO; +ZICAGEL2
== END ==
LOC: M LAB REF 19:00
PROVIDERS: ATTEND Family Medicine
DX: N39.0 Urinary tract infection, site not specified (principal)

== ENCOUNTER → 2017-04-19 | Outpatient (REF) | payer MEDICARE, OTHER, MEDICAID | LOC: M LAB REF 20:28 | PROVIDERS: ATTEND Physician Assistant Medical | DX: R19.5 Other fecal abnormalities (principal) ==

== ENCOUNTER → 2017-04-26 | Outpatient (REF) | payer MEDICARE, OTHER, MEDICAID | LOC: M SMT 12:43 | PROVIDERS: ATTEND Urology | DX: N39.0 Urinary tract infection, site not specified (principal) | CPT/HCPCS: 81001; 87088; 87186; G0463 ==

== ENCOUNTER 2017-05-05 12:06 | Outpatient (CLI) | payer MEDICARE ==
[~2017-05-05] VITALS: Ht 167.6 cm; Wt 106.1 kg
[~2017-05-05 12:06] MED LIST changes: -LEVA1TAB2 PO; +LR 1,000 ML IV ONE; -RISATAB3 PO; -ZICAGEL2
[2017-05-05] MEDS ORDERED: LIDOCAINE 2% INJ 100 MG/5 ML SDV (FOR ANES.) As Ordered ONE (13:21)
[2017-05-05] MEDS ORDERED: PROPOFOL 500 MG/50 ML VIAL As Ordered ONE (13:21)
[2017-05-05] MEDS ORDERED: DEXTROSE 50% 50 ML SYRINGE As Ordered ONE (13:31)
[2017-05-05] MEDS ORDERED: DEXTROSE 50% 50 ML SYRINGE IV ONE (13:45)
[2017-05-05] MEDS ORDERED: GLYCOPYRROLATE INJ 0.2 MG/ML 2 ML VIAL As Ordered ONE (14:46)
--- NOTE | 2017-05-05 15:48 | ROOR ---
Patient Name: Calos Camacho Procedure Date: 05/05/2017 2:29 PM Date of : 1945 Age: 71 Room: [facility] Gender: Male Note Status: Finalized Procedure: Colonoscopy Indications: High risk colon cancer surveillance: Personal history of colonic polyps Providers: Mk Lyons MD Referring MD: Leo Schreiber MD Requesting Provider: Medicines: Monitored Anesthesia Care Complications: No immediate complications. Procedure: Pre-Anesthesia Assessment: - Prior to the procedure, a History and Physical was performed, and patient medications and allergies were reviewed. The patient is competent. The risks and benefits of the procedure and the sedation options and risks were discussed with the patient. All questions were answered and informed consent was obtained. Patient identification and proposed procedure were verified by the physician, the nurse and the anesthesiologist in the procedure room. Mental Status Examination: alert and oriented. Airway Examination: normal oropharyngeal airway and neck mobility. CV Examination: regular rate and rhythm. Prophylactic Antibiotics: The patient does not require prophylactic antibiotics. Prior Anticoagulants: The patient has taken no previous anticoagulant or antiplatelet agents. ASA Grade Assessment: III - A patient with severe systemic disease. After reviewing the risks and benefits, the patient was deemed in satisfactory condition to undergo the procedure. The anesthesia plan was to use monitored anesthesia care (MAC). Immediately prior to administration of medications, the patient was re-assessed for adequacy to receive sedatives. The heart rate, respiratory rate, oxygen saturations, blood pressure, adequacy of pulmonary ventilation, and response to care were monitored throughout the procedure. The physical status of the patient was re-assessed after the procedure. The was introduced through the anus and advanced to the cecum, identified by appendiceal orifice and ileocecal valve. The colonoscopy was somewhat difficult due to significant looping. The patient tolerated the procedure well. The quality of the bowel preparation was fair. Findings: The perianal and digital rectal examinations were normal. A 3 mm polyp was found in the cecum. The polyp was sessile. The polyp was removed with a jumbo cold forceps. Resection and retrieval were complete. A 5 mm polyp was found in the distal ascending colon. The polyp was sessile. The polyp was removed with a hot snare. Resection and retrieval were complete. A 5 mm polyp was found at 40 cm proximal to the anus. The polyp was sessile. The polyp was removed with a hot snare. Resection and retrieval were complete. There was evidence of a prior functional end-to-end colo-colonic anastomosis at 30 cm proximal to the anus. This was patent and was characterized by healthy appearing mucosa. The anastomosis was traversed. Normal mucosa was found in the entire colon. Biopsies for histology were taken with a cold forceps for evaluation of microscopic colitis. Impression: - Preparation of the colon was fair. - One 3 mm polyp in the cecum, removed with a jumbo cold forceps. Resected and retrieved. - One 5 mm polyp in the distal ascending colon, removed with a hot snare. Resected and retrieved. - One 5 mm polyp at 40 cm proximal to the anus, removed with a hot snare. Resected and retrieved. - Patent functional end-to-end colo-colonic anastomosis, characterized by healthy appearing mucosa. - Normal mucosa in the entire examined colon. Biopsied. Recommendation: - Discharge patient to home. - Resume previous diet. - Continue present medications. - Await pathology results. - Telephone endoscopist for pathology results in 1 week. Mk Lyons MD 05/05/2017 3:48:17 PM Number of Addenda: 0 Note Initiated On: 05/05/2017 2:29 PM Estimated Blood Loss: Estimated blood loss: none.
[2017-05-05 15:50] VITALS: BP 123/59
== END 2017-05-05 15:55 | disposition home or self-care (01) ==
LOC: M OPP 12:06
PROVIDERS: ATTEND Surgery
DX: Z12.11 Encounter for screening for malignant neoplasm of colon (principal); D12.0 Benign neoplasm of cecum; D12.2 Benign neoplasm of ascending colon; D12.5 Benign neoplasm of sigmoid colon; Z98.0 Intestinal bypass and anastomosis status; Z86.010 Personal history of colon polyps; I48.91 Unspecified atrial fibrillation; R07.89 Other chest pain; I25.10 Atherosclerotic heart disease of native coronary artery without angina pectoris; I12.9 Hypertensive chronic kidney disease with stage 1 through stage 4 chronic kidney disease, or unspecified chronic kidney disease; E78.5 Hyperlipidemia, unspecified; E11.9 Type 2 diabetes mellitus without complications; R12 Heartburn; Z86.14 Personal history of Methicillin resistant Staphylococcus aureus infection; M54.9 Dorsalgia, unspecified; M45.9 Ankylosing spondylitis of unspecified sites in spine; M19.90 Unspecified osteoarthritis, unspecified site; M25.60 Stiffness of unspecified joint, not elsewhere classified; G81.90 Hemiplegia, unspecified affecting unspecified side; R06.83 Snoring; N18.9 Chronic kidney disease, unspecified; E66.9 Obesity, unspecified; Z85.828 Personal history of other malignant neoplasm of skin; Z87.440 Personal history of urinary (tract) infections; Z96.641 Presence of right artificial hip joint; Z96.652 Presence of left artificial knee joint; Z97.8 Presence of other specified devices; Z88.8 Allergy status to other drugs, medicaments and biological substances; Z88.5 Allergy status to narcotic agent; Z88.2 Allergy status to sulfonamides; Z91.048 Other nonmedicinal substance allergy status; Z91.040 Latex allergy status; Z79.01 Long term (current) use of anticoagulants; Z79.899 Other long term (current) drug therapy; Z79.4 Long term (current) use of insulin; Z80.0 Family history of malignant neoplasm of digestive organs

== ENCOUNTER → 2017-05-13 | Outpatient (REF) | payer MEDICARE ==
[~2017-05-13] MED LIST changes: +LEVA1TAB2 PO; -LR 1,000 ML IV ONE; +RISATAB3 PO; +ZICAGEL2
== END ==
LOC: M SFHCADAM 09:21
PROVIDERS: ATTEND Family Medicine
DX: R19.7 Diarrhea, unspecified (principal)

== ENCOUNTER 2017-05-18 17:10 | Inpatient (IN) | payer MEDICARE ==
[~2017-05-18] VITALS: Ht 175.3 cm; Wt 101.0 kg
[~2017-05-18 17:10] MED LIST changes: -LEVA1TAB2 PO; -RISATAB3 PO; -ZICAGEL2
[2017-05-18 18:15] LABS: BASO % 0.2 % (0.0-1.0); EOS # 0.3 K/mm3 (0.0-0.50); LARGE UNSTAINED CELL # 0.1 K/mm3 (0.0-0.4); LARGE UNSTAINED CELL % 0.4 % (0.0-4.0); LYMPH # 1.2 K/mm3 (1.5-4.5); LYMPH % 8.9 % (24.0-44.0); MEAN CORPUSCULAR HEMOGLOBIN 28.9 pg (27.0-33.0); MEAN CORPUSCULAR VOLUME 87.6 fl (80.0-96.0); MONO # 0.7 K/mm3 (0.0-0.8); MONO % 5.3 % (0.0-5.0); NEUTROPHILS # 10.7 K/mm3 (1.8-7.7); NEUTROPHILS % 83.1 % (36.0-66.0); PLATELET COUNT, AUTOMATED 255 k/mm3 (150-450); RED CELL DISTRIBUTION WIDTH 13.8 % (11.5-14.5); WHITE BLOOD COUNT 12.9 K/mm3 (4.0-10.0)
[2017-05-18] MEDS ORDERED: ACETAMINOPHEN 325 MG TAB PO ONE (18:15)
[2017-05-18] MEDS ORDERED: NS 1,000 ML IV ONE (18:15)
[2017-05-18 18:44] LABS: ALBUMIN 3.6 GM/DL (3.2-5.2); ALBUMIN/GLOBULIN RATIO 0.64 (1.00-1.93); BILIRUBIN,DIRECT 0.2 MG/DL (0.0-0.2); BILIRUBIN,TOTAL 0.4 MG/DL (0.2-1.0); CREATININE FOR GFR 1.49 MG/DL (0.70-1.30); GLOMERULAR FILTRATION RATE 49.5 (>42); POTASSIUM SERUM 4.1 MEQ/L (3.5-5.1); TOTAL PROTEIN 9.2 GM/DL (6.4-8.2)
--- NOTE | 2017-05-18 18:53 | REP ---
Portable chest, single AP view, 06:50 p.m., the patient upright: Comparison is 08/05 2016. The lung borrego are clear. The cardiac size is normal. The carlie, mediastinum, and bony thorax are unremarkable. Impression: Negative portable chest. Signed by John Lin MD 05/18/2017 06:45 P
[2017-05-18] MEDS ORDERED: CEFEPIME HCL 1 GM INJ (MAXIPIME) (J0692) As Ordered ONE (18:54)
[2017-05-18] MEDS ORDERED: CEFEPIME HCL 1 GM in D5W MINI-BAG PLUS 50 ML IV ONE (19:00)
[2017-05-18] MEDS ORDERED: ZICAGEL2 (19:54)
[2017-05-18] MEDS ORDERED: DEXTROSE 50% 50 ML SYRINGE IV PRN (20:00)
[2017-05-18] MEDS ORDERED: GLUCOSE 4 GM CHEW TABLET PO PRN (20:00)
[2017-05-18] MEDS ORDERED: GLUCAGON FOR INJ 1 MG VIAL (J1610) SC PRN (20:00)
--- NOTE | 2017-05-18 20:00 | REPUSA ---
HISTORY: PYELONEPHRITIS. TECHNIQUE: Axial CT imaging of abdomen and pelvis with sagittal and coronal reformatted imaging, with out contrast. DLP= 1239.4 mGy-cm. FINDINGS: Lung bases are clear. Coronary artery calcifications are noted in the LAD and circumflex a rteries. Degenerative bony changes are noted in the spine with no evidence of fracture or destructiv e bony lesion. Right hip prosthesis is in place. The liver, biliary tree, gallbladder, spleen, and pancreas are normal. Right and left, adrenal gland s are normal. Kidneys are of normal size with no evidence of calculus or obstruction or mass seen on the limited no ncontrast examination. Ureters are normal. Suprapubic catheter is noted extending to the urinary bl adder which is contracted. IVC filter is noted in the infrarenal vein segment. Abdominal aorta is n ormal. No retroperitoneal or mesenteric lymphadenopathy is seen. There is a large ventral hernia over the right lower abdomen containing multiple loops of bowel witho ut evidence of bowel obstruction. A previous mesh is noted over the left lower quadrant of the abdom en. The bowel appears normal with no evidence of bowel wall mass lesion, obstruction, perforation, i nflammatory reaction, or evidence of diverticulitis. The appendix is visualized and normal. Prostat e is enlarged. No other pelvic mass or abnormal fluid collection is seen. IMPRESSION: 1. Limited noncontrast examination demonstrates no detectable evidence of renal mass, ca lculus, or obstruction. Ureters are normal and suprapubic catheter is in place in the urinary bladde r. Prostate is enlarged. 2. Huge ventral hernia over the right lower quadrant of the abdomen containing multiple loops of bow el without evidence of bowel obstruction, inflammatory reaction, or evidence of perforation seen on t he noncontrast examination. 3. No other pathologic mass or evidence of abscess seen in the abdomen and pelvis. Clinical correlation and followup imaging may be warranted as clinically indicated. .
[2017-05-18] MEDS ORDERED: CLOTRIMAZOLE 1% TOPICAL CREAM 30GM TOP PRN (20:15)
[2017-05-18] MEDS ORDERED: NYSTATIN 100,000 UNITS/GM TOPICAL PWD 15 GM TOP PRN (20:15)
[2017-05-18] MEDS: NS 1,000 ML IV SCH (20:16)
[2017-05-18] MEDS: HumaLOG INSULIN (NovoLOG) PER UNIT SC SCH (20:57)
[2017-05-18] MEDS: BACLOFEN 10 MG TAB PO SCH (21:10)
[2017-05-18] MEDS: APIXABAN 5 MG TAB (ELIQUIS) PO SCH (21:10)
[2017-05-18] MEDS: LORATADINE 10 MG TAB PO SCH (21:10)
[2017-05-18] MEDS: MAGNESIUM OXIDE 400 MG TAB (MAG-OX) PO SCH (21:11)
[2017-05-18] MEDS: GABAPENTIN 300 MG CAP PO SCH (21:11)
[2017-05-18] MEDS: LEVEMIR (INSULIN DETEMIR) 1 UNITS/0.01ML SC SCH (21:12)
[2017-05-18] MEDS ORDERED: NS 1,000 ML IV SCH (21:30)
[2017-05-18] MEDS ORDERED: ACETAMINOPHEN TAB 650MG DOSE (2X325MG) PO ONE (21:30)
[2017-05-18] MEDS: CARVedilol 3.125 MG TAB PO SCH (21:32)
[2017-05-18] MEDS: SOLIFENACIN 5 MG TAB PO SCH (21:33)
[2017-05-18 21:58] VITALS: BP 112/50
--- NOTE | 2017-05-18 22:26 | PHACANCOPD ---
PHARMACY VANCOMYCIN DOSING Pt Demographics Demographics Patient Age:71 , Weight:106.360 , Gender: male Adjusted Body Weight Date: 05/18/17, Adjusted Body Weight: Kg Events Past 24 Hours Events Past 24 Hours: NO: Dialysis, Diuretic Therapy, Change in CrCl, Fever, Elevation in WBC, Pending Diagnostics, Pending Procedures, Other Vancomycin Vancomycin Target Ranges: 15-20 mcg/ml Vancomycin Load Y/N: Yes Load Dose Date Time Vancomycin Load Dose: 2000MG Date: 05-19 Time: 0000 Vancomycin Dose Date: 05/18/17. Current Vancomycin Dose: [1000MG Q8H] Intermittent Dosing?: No Labs Labs Item Value Date Time White Blood Count 12.9 K/mm3 H 05/18/17 1759 Creatinine 1.49 MG/DL H 05/18/17 175 Blood Urea Nitrogen 23 MG/DL H 05/18/171758 Vital Signs Label Value Date Time Patient Temperature 101.3 degrees F 05/18/172116 Temperature Source Temporal 05/18/172116 Micro Microbiology 05/18/17 Blood Culture, Received Pending 05/18/17 Blood Culture, Received Pending 05/18/17 Urine Culture, Received Pending Creatinine Clearance Date:05/18/17. Creatinine Clearance: [41]. Pending Labs Trough - @2300 Assessment and Plan Maintaining Current Dose?: Yes Reason for dose change: No Dose Change Pharmacist Note Pharmacist Note Date: 05/18/17. Pharmacist note:Dosed at 1000mg q8h with a trough ordered for 09- 14 @2300. Will continue to monitor and make adjustments as needed. CONCHITA REYES PHARMACY May 18, 2017 22:26
[2017-05-18] MEDS ORDERED: VANCOMYCIN HCL 1,000 MG, VIAL MATE ADAPTER 1 EACH in D5W 250 ML IV ONE (22:30)
[2017-05-18] MEDS: VANCOMYCIN HCL 1,000 MG, VIAL MATE ADAPTER 1 EACH in D5W 250 ML IV SCH (23:55)
[2017-05-19 06:00] VITALS: BP 129/60
[2017-05-19] MEDS: CEFEPIME HCL 1 GM in D5W MINI-BAG PLUS 50 ML IV SCH ×2 (06:12→18:10)
[2017-05-19] MEDS: HEPARIN SOD (PORCINE) 5000 UNITS/ML VIAL SC SCH ×3 (06:12→21:24)
[2017-05-19] MEDS ORDERED: CEFEPIME HCL 1 GM in D5W MINI-BAG PLUS 50 ML IV SCH (07:00)
[2017-05-19] MEDS ORDERED: CEFEPIME HCL 2 GM in D5W MINI-BAG PLUS 50 ML IV SCH (07:00)
[2017-05-19 07:09] LABS: MEAN CORPUSCULAR HEMOGLOBIN 29.2 pg (27.0-33.0); MEAN CORPUSCULAR HGB CONC 32.3 g/dl (32.0-36.5); MEAN CORPUSCULAR VOLUME 90.4 fl (80.0-96.0); RED CELL DISTRIBUTION WIDTH 13.7 % (11.5-14.5); WHITE BLOOD COUNT 9.1 K/mm3 (4.0-10.0)
[2017-05-19 07:35] LABS: CREATININE FOR GFR 1.34 MG/DL (0.70-1.30); GLOMERULAR FILTRATION RATE 55.9 (>42)
--- NOTE | 2017-05-19 07:39 | HPE ---
DATE OF ADMISSION: 05/18/2017 PRIMARY CARE PROVIDER: Leo Schreiber MD HISTORY OF PRESENT ILLNESS: This patient is a 71-year-old male with a history significant for atrial fibrillation, hypertension, recurrent transient ischemic attack (TIA), chronic supra-catheter usage and hypertension, presented to [facility] 05/18/2017 for not feeling well with a fevers. 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 The patient required chronic suprapubic catheter usage. The patient has history of frequent urinary tract infection (UTI) on the catheter. The patient was prescribed long-term antibiotic with microbid and also Bactrim. However, the patient has been complaining about diarrhea for a few weeks and he felt it was due to antibiotics, so he stopped the antibiotics approximately a week ago. Since then, "he said that he feels like crap" and he started having fever, shivering chills and he also experienced continuous thirst, worsening fatigue. The patient also have vague abdominal discomfort. No chest pain. No shortness of breath. The patient stated that for his diarrhea he has been having for the past few weeks colonoscopy was performed two weeks ago by Dr. Lyons and the result was negative. Multiple gastrointestinal (GI) panel were performed and came back negative. ALLERGIES: SULFA, HYDROCHLOROTHIAZIDE, SOO INHIBITORS, MORPHINE, CARISOPRODOL. PAST MEDICAL HISTORY: 1. Atrial fibrillation. 2. Hypertension with hypertensive heart disease. 3. Rheumatoid arthritis. 4. Ankylosing spondylosis. 5. Benign prostatic hypertrophy. 6. Insulin-dependent diabetes. 7. Colonic polyps. 8. Hyperlipidemia. 9. Vitamin D deficiency. 10. Erectile dysfunction. 11. Hypercalcemia. 12. Iron deficiency anemia. 13. Cervical degenerative disk disease 14. 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 15. Obstructive sleep apnea on CPAP. PAST SURGICAL HISTORY: 1. Left hemicolectomy. 2. Left knee replacement. 3. Inguinal hernia repair. 4. Spinal cord decompressive laminectomy. 5. Suprapubic catheter placement by Dr. Hickey. SOCIAL HISTORY: Denies any smoking history. Drinks alcohol rarely. Denies any recreational drug use. The patient is full code. REVIEW OF SYSTEMS: GENERAL: Positive fever and chills. HEENT: No visual changes. No auditory changes. CARDIOVASCULAR: No chest pain. No palpitations. RESPIRATORY: No shortness of breath. No cough. No sputum production. GASTROINTESTINAL (GI): Frequent diarrhea. No nausea, no vomiting. Vague abdominal discomfort. MUSCULOSKELETAL: Denies any muscle pain or joint pains. NEUROLOGICAL: History of vertebral spine lipoma, status post decompressed laminectomy. The patient has lower body weak paralysis; but at the baseline, the patient is able to ambulate with phlebotomist medical lab assistant with a walker. OBJECTIVE: VITAL SIGNS: Temperature is 100.8, pulse is 92, respiratory rate 20, blood pressure is 122/57, pulse oximetry 93% on room air. GENERAL: Fatigue, no sign of acute distress, alert and oriented times three. HEENT: Normocephalic, atraumatic. Extraocular movement grossly intact. CARDIOVASCULAR: Positive S1, S2, irregularly irregular. LUNGS: Clear to auscultation bilaterally. ABDOMEN: Obese, soft, suprapubic catheter noted. Insertion site was covered with a dressing. Bowel sounds present. EXTREMITIES: No edema, no sign of cyanosis. GENITOURINARY (): Suprapubic catheter in place. There is some whitish urine noted in the catheter tube and also in the Nuñez catheter. MICROBIOLOGY: Blood culture is pending times two. Urine culture is pending. Gastrointestinal (GI) panel 05/13/2017 is negative. Gastrointestinal (GI) panel from 04/19/2017 is negative. Urine culture from 04/26/2017 showed E. Coli. Urine culture from 03/29/2017 showed pseudomonas. Urine culture from 03/12/2017 and 03/03/2017 both showed E. Coli. Urine culture from 01/06/2017 showed pseudomonas enterococcus faecalis, staphylococcus aureus, group B streptococcus. IMAGING STUDY: Chest x-ray showed no negative portable chest. CT of the abdomen and pelvis limited, noncontrast examination. Huge ventral hernia over the right lower quadrant of the abdomen containing multiple loops of bowel without evidence of bowel obstruction, inflammatory reaction or evidence of perforation. No pathologic mass or evidence of abscess seen in the abdomen and pelvis. ASSESSMENT AND PLAN: 1. Urinary tract infection. The patient admitted to the medical surgical floor in the inpatient status. The patient's cultures obtained. The patient's previous cultures were reviewed. The patient's urine culture grew pseudomonas E. Coli staphylococcus aureus, group B streptococcus in the past. The patient was covered with cefepime and vancomycin. Will adjust antibiotics when the urine culture results come back. Continue with IV fluid. 2. History of atrial fibrillation. Rate in satisfactory range. The patient is on Eliquis and Coreg. 3. Insulin-dependent diabetes. The patient will be on Levemir, covering with a sliding scale. The patient will be on consistent carbohydrate diet. 4. Chronic suprapubic catheter use. Currently, the patient had a catheter changed every month, the catheter was changed last , which was approximately six days ago. 5. History of ankylosing spondylitis. 6. History of rheumatoid arthritis. 7. Benign prostatic hypertrophy (BPH). 8. History of colonic polyps. 9. Hyperlipidemia. Followup with lipid profile. 10. 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 11. Obstructive sleep apnea (LEEANN). The patient will be on obstructive sleep apnea (LEEANN) protocol. The patient may use his own CPAP. 12. Deep vein thrombosis (DVT) prophylaxis on heparin.
[2017-05-19] MEDS: FENOFIBRATE 145 MG TAB (TRICOR) PO SCH (09:21)
[2017-05-19] MEDS: CARVedilol 3.125 MG TAB PO SCH ×2 (09:21→21:23)
[2017-05-19] MEDS: VANCOMYCIN HCL 1,000 MG, VIAL MATE ADAPTER 1 EACH in D5W 250 ML IV SCH ×3 (09:21→23:58)
[2017-05-19] MEDS: SPIRONOLACTONE 25 MG TAB PO SCH (09:22)
[2017-05-19] MEDS: APIXABAN 5 MG TAB (ELIQUIS) PO SCH ×2 (09:22→21:22)
[2017-05-19] MEDS: GABAPENTIN 300 MG CAP PO SCH ×3 (09:22→21:22)
[2017-05-19] MEDS: MAGNESIUM OXIDE 400 MG TAB (MAG-OX) PO SCH ×2 (09:22→21:22)
[2017-05-19] MEDS: LACTOBACILLUS ACIDOPHILUS CAP (BACID) PO SCH ×3 (09:22→18:09)
[2017-05-19] MEDS: FUROSEMIDE 20 MG TAB PO SCH (09:23)
[2017-05-19] MEDS: NS 1,000 ML IV SCH ×2 (09:23→14:25)
[2017-05-19] MEDS: BACLOFEN 10 MG TAB PO SCH ×3 (09:23→21:31)
[2017-05-19] MEDS: HumaLOG INSULIN (NovoLOG) PER UNIT SC SCH ×4 (09:24→21:25)
[2017-05-19] MEDS: LEVEMIR (INSULIN DETEMIR) 1 UNITS/0.01ML SC SCH ×2 (09:24→21:24)
--- NOTE | 2017-05-19 12:46 | IPNPDOC ---
Subjective Date Seen The patient was seen on 05/19/17. Subjective Chief Complaint/HPI The patient is a 71-year-old male admitted with a reason for visit of Urinary Tract Infection. Events since last encounter Improvement in symptoms. Denies c/o. Eyes: Denies: Pain, Vision change, Conjunctivae inflammation, Eyelid inflammation, Redness, Other Skin: Denies: Rash, Lesions, Breakdown Pulmonary: Denies: Dyspnea, Cough Cardiovascular: Denies: Chest Pain, Palpitations, Orthopnea, Paroxysmal Noc. Dyspnea, Lt Headedness Gastrointestinal: Denies: Nausea, Vomiting, Abdominal Pain, Diarrhea, Constipation Psych: Reports: Mood Normal, Denies: Depression, Memory Issues Objective Physical Examination General Exam: Positive: Alert, No Acute Distress Eye Exam: Positive: PERRLA, Conjunctiva & lids normal, EOMI, Negative: Sclera icteric Neck Exam: Positive: Supple, Negative: JVD, thyromegaly Chest Exam: Positive: Clear to auscultation, Normal air movement Heart Exam: Positive: Rate Normal, Regular Rhythm, Normal S1, Normal S2, Negative: Murmurs, Rubs Abdomen Exam: Positive: Normal bowel sounds, Soft, Negative: Tenderness, Hepatospenomegaly Extremity Exam: Negative: Clubbing Skin Exam: Positive: Nl turgor and temperature Psych Exam: Positive: Oriented x 3 Assessment /Plan Problems (1) UTI (urinary tract infection) due to urinary indwelling catheter Status: Acute Problem Text: Vanco and Cefepime day #2. WBC 9,000. Afebrile (2) JANEEN (acute kidney injury) Status: Acute Problem Text: Cr improved at 1.35 (3) Neuromuscular dysfunction of bladder Status: Chronic Problem Specific Plan: Monitor Clinically (4) Spinal stenosis Status: Chronic Response to Treatment: Stable Problem Specific Plan: Monitor Clinically (5) Paraplegia Status: Chronic Response to Treatment: Stable Problem Specific Plan: Monitor Clinically (6) HTN (hypertension) Status: Chronic Response to Treatment: Stable Problem Specific Plan: Monitor Clinically (7) T2DM (type 2 diabetes mellitus) Status: Chronic Response to Treatment: Stable (8) A-fib Status: Chronic Response to Treatment: Stable Problem Specific Plan: Monitor Clinically Plan/VTE VTE Prophylaxis Ordered?: Yes (heparin) VS, I&O, 24H, Fishbone Vital Signs/I&O Vital Signs Date Time Temp Pulse Resp B/P (MAP) Pulse Ox O2 Delivery O2 Flow Rate FiO2 05/19/17 09:21 74 129/60 05/19/17 06:00 98.8 18 99 Room Air I&O- Last 24 Hours up to 6 AM 05/19/17 06:00 Intake Total 1090 ml Output Total 1750 ml Balance -660 ml Laboratory Data 24H LABS Laboratory Tests 2 05/18/17 17:59: White Blood Count 12.9H, Red Blood Count 5.55, Hemoglobin 16.0, Hematocrit 48.6 , Mean Corpuscular Volume 87.6, Mean Corpuscular Hemoglobin 28.9, Mean Corpuscular Hemoglobin Concent 33.0, Red Cell Distribution Width 13.8, Platelet Count 255, Neutrophils (%) (Auto) 83.1H, Lymphocytes (%) (Auto) 8.9L, Monocytes (%) (Auto) 5.3H, Eosinophils (%) (Auto) 2.0, Basophils (%) (Auto) 0.2, Neutrophils # (Auto) 10.7H, Lymphocytes # (Auto) 1.2L, Monocytes # (Auto) 0.7, Eosinophils # (Auto) 0.3, Basophils # (Auto) 0.0, Large Unclassified Cells % 0.4 , Large Unclassified Cells # 0.1, Anion Gap 5L, Glomerular Filtration Rate 49.5 , Lactic Acid Level 1.7, Calcium Level 10.0, Aspartate Amino Transf (AST/SGOT) 28, Alanine Aminotransferase (ALT/SGPT) 41, Alkaline Phosphatase 98, Total Bilirubin 0.4, Direct Bilirubin 0.2, Total Protein 9.2H, Albumin 3.6, Albumin/ Globulin Ratio 0.64L 05/18/17 18:23: Urine Appearance HAZY, Urine Color YELLOW, Urine pH 6.0, Urine Specific [place] 1.009, Urine Protein 2+H, Urine Glucose (UA) NEGATIVE, Urine Ketones NEGATIVE, Urine Urobilinogen 0.2, Urine Bilirubin NEGATIVE, Urine Leukocyte Esterase 3+H, Urine Blood 2+H, Urine Nitrite NEGATIVE, Urine WBC (Auto) 170H, Urine RBC (Auto ) 36H, Urine Hyaline Casts (Auto) 0, Urine Bacteria (Auto) 1+H, Urine Squamous Epithelial Cells 0, Urine Sperm (Auto) 05/18/17 20:53: Bedside Glucose (Misc Panel) 133H 05/19/17 06:30: Anion Gap 4L, Glomerular Filtration Rate 55.9, Calcium Level 9.0, Triglycerides Level 112, LDL Cholesterol 33.6, Total Cholesterol 88, Non-HDL Cholesterol (LDL + VLDL) 56, Total HDL Cholesterol 32L, Cholesterol/HDL Ratio 2.750 05/19/17 11:49: Bedside Glucose (Misc Panel) 218H CBC/BMP Laboratory Tests 05/18/17 17:59 Red Blood Count 5.55, Mean Corpuscular Volume 87.6, Mean Corpuscular Hemoglobin 28.9, Mean Corpuscular Hemoglobin Concent 33.0, Red Cell Distribution Width 13.8 , Neutrophils (%) (Auto) 83.1 H, Lymphocytes (%) (Auto) 8.9 L, Monocytes (%) ( Auto) 5.3 H, Eosinophils (%) (Auto) 2.0, Basophils (%) (Auto) 0.2, Neutrophils # (Auto) 10.7 H, Lymphocytes # (Auto) 1.2 L, Monocytes # (Auto) 0.7, Eosinophils # (Auto) 0.3, Basophils # (Auto) 0.0 05/19/17 06:30 Red Blood Count 4.76, Mean Corpuscular Volume 90.4, Mean Corpuscular Hemoglobin 29.2, Mean Corpuscular Hemoglobin Concent 32.3, Red Cell Distribution Width 13.7 Microbiology Microbiology 05/18/17 Blood Culture, Received Pending 05/18/17 Blood Culture, Received Pending 05/18/17 Urine Culture, Received Pending Katarina Langford [facility] May 19, 2017 12:46
[2017-05-19 14:00] VITALS: BP 132/73
[2017-05-19] MEDS: ACETAMINOPHEN TAB 650MG DOSE (2X325MG) PO PRN ×3 (14:25→21:28)
[2017-05-19] MEDS: LORATADINE 10 MG TAB PO SCH (21:22)
[2017-05-19] MEDS: SOLIFENACIN 5 MG TAB PO SCH (21:56)
[2017-05-19 22:00] VITALS: BP 129/59
--- NOTE | 2017-05-20 00:17 | PHACANCOPD ---
PHARMACY VANCOMYCIN DOSING Pt Demographics Demographics Patient Age:71 , Weight:104.200 , Gender: male Adjusted Body Weight Date: 05/18/17, Adjusted Body Weight: Kg Events Past 24 Hours Events Past 24 Hours: NO: Dialysis, Diuretic Therapy, Change in CrCl, Fever, Elevation in WBC, Pending Diagnostics, Pending Procedures, Other Vancomycin Vancomycin Target Ranges: 15-20 mcg/ml Vancomycin Load Y/N: Yes Load Dose Date Time Vancomycin Load Dose: 2000MG Date: 05-19 Time: 0000 Vancomycin Dose Date: 05/19/17. Current Vancomycin Dose: [1000MG Q12H] Intermittent Dosing?: No Labs Labs Item Value Date Time White Blood Count 9.1 K/mm3 05/19/17 0630 Creatinine 1.34 MG/DL H 05/19/17 0630 Vancomycin Level Trough 27.8 UG/ML *H 05/19/17 2305 Vital Signs Label Value Date Time Patient Temperature 99.1 degrees F 05/19/17 2200 Temperature Source Core 05/19/17 2200 Micro Microbiology 05/18/17 Blood Culture - Preliminary, Resulted No growth after 24 hours . All specim... 05/18/17 Blood Culture - Preliminary, Resulted No growth after 24 hours . All specim... 05/18/17 Urine Culture, Received Pending Creatinine Clearance Date:05/18/17. Creatinine Clearance: [41]. Pending Labs Trough 05-20 @2300 Assessment and Plan Maintaining Current Dose?: No Reason for dose change: Trough too high Pharmacist Note Pharmacist Note Date: 05/18/17. Pharmacist note:Trough of 27.8 is above target range. Dose reduced to 1000mg q12h with a trough ordered for 05-20 @2300. Will continue to monitor and make adjustments as needed. CONCHITA REYES PHARMACY May 20, 2017 00:17
[2017-05-20 06:00] VITALS: BP 129/56
[2017-05-20] MEDS: CEFEPIME HCL 1 GM in D5W MINI-BAG PLUS 50 ML IV SCH ×2 (06:15→18:25)
[2017-05-20] MEDS: HEPARIN SOD (PORCINE) 5000 UNITS/ML VIAL SC SCH ×3 (06:16→21:26)
[2017-05-20 07:28] LABS: MEAN CORPUSCULAR HEMOGLOBIN 29.9 pg (27.0-33.0); MEAN CORPUSCULAR HGB CONC 34.1 g/dl (32.0-36.5); MEAN CORPUSCULAR VOLUME 87.7 fl (80.0-96.0); RED CELL DISTRIBUTION WIDTH 13.6 % (11.5-14.5); WHITE BLOOD COUNT 10.5 K/mm3 (4.0-10.0)
[2017-05-20 07:45] LABS: CALCIUM LEVEL 9.1 MG/DL (8.8-10.2); CREATININE FOR GFR 1.65 MG/DL (0.70-1.30)
[2017-05-20] MEDS: LEVEMIR (INSULIN DETEMIR) 1 UNITS/0.01ML SC SCH ×2 (08:18→22:06)
[2017-05-20] MEDS: HumaLOG INSULIN (NovoLOG) PER UNIT SC SCH ×4 (08:18→22:06)
[2017-05-20] MEDS: MAGNESIUM OXIDE 400 MG TAB (MAG-OX) PO SCH ×2 (08:20→21:25)
[2017-05-20] MEDS: FENOFIBRATE 145 MG TAB (TRICOR) PO SCH (08:20)
[2017-05-20] MEDS: FUROSEMIDE 20 MG TAB PO SCH (08:20)
[2017-05-20] MEDS: BACLOFEN 10 MG TAB PO SCH ×3 (08:20→21:25)
[2017-05-20] MEDS: APIXABAN 5 MG TAB (ELIQUIS) PO SCH ×2 (08:20→21:24)
[2017-05-20] MEDS: GABAPENTIN 300 MG CAP PO SCH ×3 (08:21→21:25)
[2017-05-20] MEDS: SPIRONOLACTONE 25 MG TAB PO SCH (08:21)
[2017-05-20] MEDS: CARVedilol 3.125 MG TAB PO SCH ×2 (08:21→21:24)
[2017-05-20] MEDS: LACTOBACILLUS ACIDOPHILUS CAP (BACID) PO SCH ×3 (08:21→16:55)
[2017-05-20] MEDS ORDERED: INFLUENZA VIRUS VACCINE HIGH DOSE 0.5 ML SYRINGE (90662) IM ONE (09:00)
[2017-05-20] MEDS ORDERED: VANCOMYCIN HCL 1,000 MG, VIAL MATE ADAPTER 1 EACH in D5W 250 ML IV SCH (12:00)
--- NOTE | 2017-05-20 12:08 | IPNPDOC ---
Subjective Date Seen The patient was seen on 05/20/17. Subjective Chief Complaint/HPI The patient is a 71-year-old male admitted with a reason for visit of Urinary Tract Infection. Events since last encounter Tmax 100.6. Had 2 IV infiltrations overnight. C/o constipation, causing LLQ hernia to enlarge. Constitutional: Denies: Chills, Fever, Night Sweats Skin: Denies: Rash, Lesions, Breakdown Pulmonary: Denies: Dyspnea, Cough Cardiovascular: Denies: Chest Pain, Palpitations, Orthopnea, Paroxysmal Noc. Dyspnea, Edema, Lt Headedness, Other Symptoms Gastrointestinal: Reports: Constipation, Denies: Nausea, Vomiting, Abdominal Pain, Diarrhea Objective Physical Examination General Exam: Positive: Alert, No Acute Distress Eye Exam: Positive: PERRLA, Conjunctiva & lids normal, EOMI, Negative: Sclera icteric Neck Exam: Positive: Supple, Negative: JVD, thyromegaly Chest Exam: Positive: Clear to auscultation, Normal air movement Heart Exam: Positive: Rate Normal, Regular Rhythm, Normal S1, Normal S2, Negative: Murmurs, Rubs Abdomen Exam: Positive: Normal bowel sounds, Soft, Hernia (LLQ, soft, mildly tender), Negative: Tenderness, Hepatospenomegaly Extremity Exam: Negative: Clubbing Skin Exam: Positive: Nl turgor and temperature Psych Exam: Positive: Oriented x 3 Assessment /Plan Problems (1) UTI (urinary tract infection) due to urinary indwelling catheter Status: Acute Problem Text: D3 cefepime (05/20 held vanco p 3D) 05/20 WBC 10.5 (9.1), Tm 103 05/19 1750 . 05/18 UCX P.aeruginosa >100K sens cefepime 05/18 BCX NG x 2 05/18 CT AP . Limited noncontrast examination demonstrates no detectable evidence of renal mass, calculus, or obstruction. Ureters are normal and suprapubic catheter is in place in the urinary bladder. Prostate is enlarged 05/18 CXR NAD (2) JANEEN (acute kidney injury) Status: Acute Problem Text: prior to admission-3W diarrhea-none since admission 05/20 22/1.7, 4.0- -1L since admission; therefore, held fur 20, frank 25, vanco and fenofibrate, started 09/06 nS 20 KCL at 50 baseline cr 1.2 (3) Neuromuscular dysfunction of bladder Status: Chronic Problem Specific Plan: Monitor Clinically (4) Spinal stenosis Status: Chronic Response to Treatment: Stable Problem Specific Plan: Monitor Clinically (5) Paraplegia Status: Chronic Response to Treatment: Stable Problem Specific Plan: Monitor Clinically (6) HTN (hypertension) Status: Chronic Response to Treatment: Stable Problem Specific Plan: Monitor Clinically (7) T2DM (type 2 diabetes mellitus) Status: Chronic Response to Treatment: Stable (8) A-fib Status: Chronic Response to Treatment: Stable Problem Specific Plan: Monitor Clinically (9) Severe sepsis Status: Acute Response to Treatment: Stable Problem Text: rx as per UTI Plan/VTE VTE Prophylaxis Ordered?: Yes (heparin) VS, I&O, 24H, Fishbone Vital Signs/I&O Vital Signs Date Time Temp Pulse Resp B/P (MAP) Pulse Ox O2 Delivery O2 Flow Rate FiO2 05/20/17 08:21 62 129/56 05/20/17 06:00 96.4 16 96 NIPPV (BIPAP/CPAP) 2.0 I&O- Last 24 Hours up to 6 AM 05/20/17 06:00 Intake Total 2040 ml Output Total 2450 ml Balance -410 ml Laboratory Data 24H LABS Laboratory Tests 2 05/19/17 16:41: Bedside Glucose (Misc Panel) 202H 05/19/17 19:35: Bedside Glucose (Misc Panel) 272H 05/19/17 23:05: Vancomycin Level Trough 27.8*H 05/20/17 06:26: Anion Gap 3L, Glomerular Filtration Rate 44.0, Blood Urea Nitrogen 22H, Creatinine 1.65H, Sodium Level 135L, Potassium Level 4.0, Chloride Level 101, Carbon Dioxide Level 31, Calcium Level 9.1 CBC/BMP Laboratory Tests 05/20/17 06:26 Red Blood Count 4.32, Mean Corpuscular Volume 87.7, Mean Corpuscular Hemoglobin 29.9, Mean Corpuscular Hemoglobin Concent 34.1, Red Cell Distribution Width 13.6 , Calcium Level 9.1 Microbiology Microbiology 05/18/17 Blood Culture - Preliminary, Resulted No growth after 24 hours . All specim... 05/18/17 Blood Culture - Preliminary, Resulted No growth after 24 hours . All specim... 05/18/17 Urine Culture, Received Pending Katarina Langford May 20, 2017 12:08 Jem Goff M.D. May 20, 2017 14:48
[2017-05-20] MEDS: BISACODYL 10 MG SUPP PR PRN (13:08)
[2017-05-20] MEDS: DOCUSATE SODIUM 100 MG CAP PO SCH ×2 (13:08→21:24)
[2017-05-20] MEDS: NS 1,000 ML IV SCH (13:46)
[2017-05-20 14:00] VITALS: BP 137/62
[2017-05-20] MEDS: KCL 20MEQ IN 0.45NS 1000ML 1,000 ML IV SCH (16:33)
[2017-05-20] MEDS: ACETAMINOPHEN TAB 650MG DOSE (2X325MG) PO PRN ×2 (18:25→22:11)
--- NOTE | 2017-05-20 19:30 | REPUSA ---
Clinical history: Swelling, possible abscess. Findings: Real-time ultrasound imaging of the testicles and scrotum was performed. The right testicle measures 2.7 x 2.3 x 2.5 cm. The left testicle measures 3.7 x 2.2 x 3.0 cm. The testicles demonstrat e normal echo texture and echogenicity. Normal arterial waveforms are seen bilaterally. However, ther e is increased color Doppler flow in the right epididymis. No fluid collections are seen. Impression: Right-sided epididymitis.
[2017-05-20] MEDS: SOLIFENACIN 5 MG TAB PO SCH (21:24)
[2017-05-20] MEDS: LORATADINE 10 MG TAB PO SCH (21:24)
[2017-05-20 22:00] VITALS: BP 120/64
[2017-05-21 06:00] VITALS: BP 122/69
[2017-05-21] MEDS: HEPARIN SOD (PORCINE) 5000 UNITS/ML VIAL SC SCH ×3 (06:27→20:16)
[2017-05-21] MEDS: CEFEPIME HCL 1 GM in D5W MINI-BAG PLUS 50 ML IV SCH ×2 (06:27→18:31)
[2017-05-21 07:22] LABS: MEAN CORPUSCULAR HEMOGLOBIN 28.8 pg (27.0-33.0); MEAN CORPUSCULAR HGB CONC 33.4 g/dl (32.0-36.5); MEAN CORPUSCULAR VOLUME 86.3 fl (80.0-96.0); RED CELL DISTRIBUTION WIDTH 13.6 % (11.5-14.5); WHITE BLOOD COUNT 11.3 K/mm3 (4.0-10.0)
[2017-05-21] MEDS: HumaLOG INSULIN (NovoLOG) PER UNIT SC SCH ×4 (07:30→20:26)
[2017-05-21 07:37] LABS: ANION GAP 9 MEQ/L (8-16); BLOOD UREA NITROGEN 19 MG/DL (7-18); CALCIUM LEVEL 9.2 MG/DL (8.8-10.2); CARBON DIOXIDE LEVEL 26 MEQ/L (21-32); CHLORIDE LEVEL 101 MEQ/L (98-107); CREATININE FOR GFR 1.14 MG/DL (0.70-1.30); GLOMERULAR FILTRATION RATE > 60.0 (>42); GLUCOSE, FASTING 76 MG/DL (83-110); POTASSIUM SERUM 3.9 MEQ/L (3.5-5.1); SODIUM LEVEL 136 MEQ/L (136-145)
[2017-05-21] MEDS: APIXABAN 5 MG TAB (ELIQUIS) PO SCH ×2 (08:37→20:15)
[2017-05-21] MEDS: LACTOBACILLUS ACIDOPHILUS CAP (BACID) PO SCH ×3 (08:37→17:19)
[2017-05-21] MEDS: DOCUSATE SODIUM 100 MG CAP PO SCH ×2 (08:37→20:15)
[2017-05-21] MEDS: BACLOFEN 10 MG TAB PO SCH ×3 (08:37→20:15)
[2017-05-21] MEDS: MAGNESIUM OXIDE 400 MG TAB (MAG-OX) PO SCH ×2 (08:38→20:26)
[2017-05-21] MEDS: CARVedilol 3.125 MG TAB PO SCH ×2 (08:38→20:31)
[2017-05-21] MEDS: LEVEMIR (INSULIN DETEMIR) 1 UNITS/0.01ML SC SCH ×3 (09:00→20:26)
[2017-05-21] MEDS: GABAPENTIN 300 MG CAP PO SCH ×3 (09:59→20:15)
[2017-05-21] MEDS: KCL 20MEQ IN 0.45NS 1000ML 1,000 ML IV SCH (12:46)
--- NOTE | 2017-05-21 13:01 | IPNPDOC ---
Subjective Date Seen The patient was seen on 05/21/17. Subjective Chief Complaint/HPI The patient is a 71-year-old male admitted with a reason for visit of Urinary Tract Infection. Constitutional: Denies: Chills Eyes: Denies: Pain Skin: Denies: Rash Pulmonary: Denies: Cough Cardiovascular: Denies: Chest Pain, Palpitations Gastrointestinal: Denies: Nausea, Vomiting Genitourinary: Denies: Dysuria Objective Physical Examination General Exam: Positive: Alert, No Acute Distress Eye Exam: Positive: PERRLA, Conjunctiva & lids normal, EOMI, Negative: Sclera icteric Neck Exam: Positive: Supple, Negative: JVD, thyromegaly Chest Exam: Positive: Clear to auscultation, Normal air movement Heart Exam: Positive: Rate Normal, Regular Rhythm, Normal S1, Normal S2, Negative: Murmurs, Rubs Abdomen Exam: Positive: Normal bowel sounds, Soft, Hernia (LLQ, soft, mildly tender), Negative: Tenderness, Hepatospenomegaly Extremity Exam: Negative: Clubbing Skin Exam: Positive: Nl turgor and temperature Psych Exam: Positive: Oriented x 3 Assessment /Plan Problems (1) Epididymitis, right Problem Text: 05/20 new onset-tender only to palpation confirmed by 05/20 scrotal US-no signs of abscess (2) UTI (urinary tract infection) due to urinary indwelling catheter Status: Acute Problem Text: D4 cefepime (05/20 held vanco p 3D) WBC 11.3, but afebrile 05/20 WBC 10.5 (9.1), Tm 103 05/19 1750 . 05/18 UCX P.aeruginosa >100K sens cefepime 05/18 BCX NG x 2 05/18 CT AP . Limited noncontrast examination demonstrates no detectable evidence of renal mass, calculus, or obstruction. Ureters are normal and suprapubic catheter is in place in the urinary bladder. Prostate is enlarged 05/20 scrotal US Impression: Right-sided epididymitis 05/18 CXR NAD (3) JANEEN (acute kidney injury) Status: Acute Problem Text: prior to admission-3W diarrhea-none since admission 05/21 191/1.1, 3.9; therefore, SLIV 05/20 22/1.7, 4.0- -1L since admission; therefore, held fur 20, frank 25, vanco and fenofibrate, started 1/2 nS 20 KCL at 50 baseline cr 1.2 (4) Neuromuscular dysfunction of bladder Status: Chronic Problem Specific Plan: Monitor Clinically (5) Paraplegia Status: Chronic Response to Treatment: Stable Problem Specific Plan: Monitor Clinically (6) HTN (hypertension) Status: Chronic Response to Treatment: Stable Problem Specific Plan: Monitor Clinically (7) T2DM (type 2 diabetes mellitus) Status: Chronic Response to Treatment: Stable Problem Text: HD Lantus 52/05/21 given AM 76, decreased to (8) A-fib Status: Chronic Response to Treatment: Stable Problem Specific Plan: Monitor Clinically Problem Text: carved 3.125 BID rate control apixiban anticoag (9) Severe sepsis Status: Acute Response to Treatment: Stable Problem Text: rx as per UTI (10) Physical deconditioning Status: Acute Problem Text: baseline ambulates c WB 05/21 consult PT Plan/VTE VTE Prophylaxis Ordered?: Yes (heparin) VS, I&O, 24H, Fishbone Vital Signs/I&O Vital Signs Date Time Temp Pulse Resp B/P (MAP) Pulse Ox O2 Delivery O2 Flow Rate FiO2 05/21/17 08:38 76 122/69 05/21/17 08:00 Room Air 05/21/17 06:00 98.6 18 96 05/20/17 06:00 2.0 I&O- Last 24 Hours up to 6 AM 05/21/17 06:00 Intake Total 2060 ml Output Total 2800 ml Balance -740 ml Laboratory Data 24H LABS Laboratory Tests 2 05/20/17 16:37: Bedside Glucose (Misc Panel) 199H 05/20/17 20:26: Bedside Glucose (Misc Panel) 253H 05/21/17 06:17: Anion Gap 9, Glomerular Filtration Rate > 60.0, Blood Urea Nitrogen 19H, Creatinine 1.14, Sodium Level 136, Potassium Level 3.9, Chloride Level 101, Carbon Dioxide Level 26, Calcium Level 9.2 05/21/17 11:39: Bedside Glucose (Misc Panel) 140H CBC/BMP Laboratory Tests 05/21/17 06:17 Red Blood Count 4.13 L, Mean Corpuscular Volume 86.3, Mean Corpuscular Hemoglobin 28.8, Mean Corpuscular Hemoglobin Concent 33.4, Red Cell Distribution Width 13.6, Calcium Level 9.2 Microbiology Microbiology 05/18/17 Blood Culture - Preliminary, Resulted No Growth after 48 hours. All Specime... 05/18/17 Blood Culture - Preliminary, Resulted No Growth after 48 hours. All Specime... 05/18/17 Urine Culture - Final, Complete Pseudomonas Aeruginosa Corynebacterium Species Jem Goff M.D. May 21, 2017 13:01
[2017-05-21 14:00] VITALS: BP 126/62
[2017-05-21] MEDS: SOLIFENACIN 5 MG TAB PO SCH (20:15)
[2017-05-21] MEDS: LORATADINE 10 MG TAB PO SCH (20:16)
[2017-05-21 22:00] VITALS: BP 129/61
[2017-05-22] MEDS: CEFEPIME HCL 1 GM in D5W MINI-BAG PLUS 50 ML IV SCH ×2 (05:30→18:28)
[2017-05-22] MEDS: HEPARIN SOD (PORCINE) 5000 UNITS/ML VIAL SC SCH ×3 (05:30→21:28)
[2017-05-22 06:00] VITALS: BP 108/59
[2017-05-22 06:21] LABS: ANION GAP 8 MEQ/L (8-16); BLOOD UREA NITROGEN 22 MG/DL (7-18); CALCIUM LEVEL 9.2 MG/DL (8.8-10.2); CARBON DIOXIDE LEVEL 26 MEQ/L (21-32); CHLORIDE LEVEL 105 MEQ/L (98-107); CREATININE FOR GFR 1.15 MG/DL (0.70-1.30); GLOMERULAR FILTRATION RATE > 60.0 (>42); GLUCOSE, FASTING 147 MG/DL (83-110); POTASSIUM SERUM 4.5 MEQ/L (3.5-5.1); SODIUM LEVEL 139 MEQ/L (136-145)
[2017-05-22 06:50] LABS: MEAN CORPUSCULAR HEMOGLOBIN 29.6 pg (27.0-33.0); MEAN CORPUSCULAR HGB CONC 34.9 g/dl (32.0-36.5); MEAN CORPUSCULAR VOLUME 84.6 fl (80.0-96.0); RED CELL DISTRIBUTION WIDTH 13.4 % (11.5-14.5); WHITE BLOOD COUNT 7.4 K/mm3 (4.0-10.0)
[2017-05-22] MEDS: HumaLOG INSULIN (NovoLOG) PER UNIT SC SCH ×4 (09:07→20:38)
[2017-05-22] MEDS: LEVEMIR (INSULIN DETEMIR) 1 UNITS/0.01ML SC SCH ×2 (09:08→20:38)
[2017-05-22] MEDS: DOCUSATE SODIUM 100 MG CAP PO SCH ×2 (09:08→20:37)
[2017-05-22] MEDS: CARVedilol 3.125 MG TAB PO SCH ×2 (09:11→20:39)
[2017-05-22] MEDS: GABAPENTIN 300 MG CAP PO SCH ×3 (09:11→20:37)
[2017-05-22] MEDS: MAGNESIUM OXIDE 400 MG TAB (MAG-OX) PO SCH ×2 (09:12→20:38)
[2017-05-22] MEDS: LACTOBACILLUS ACIDOPHILUS CAP (BACID) PO SCH ×3 (09:12→17:51)
[2017-05-22] MEDS: BACLOFEN 10 MG TAB PO SCH ×3 (09:12→20:37)
[2017-05-22] MEDS: APIXABAN 5 MG TAB (ELIQUIS) PO SCH ×2 (09:12→20:37)
[2017-05-22 14:00] VITALS: BP 160/64
[2017-05-22] MEDS: ACETAMINOPHEN TAB 650MG DOSE (2X325MG) PO PRN (16:29)
[2017-05-22] MEDS: BISACODYL 10 MG SUPP PR PRN (16:30)
--- NOTE | 2017-05-22 17:28 | IPNPDOC ---
Subjective Date Seen The patient was seen on 05/22/17. Subjective Chief Complaint/HPI The patient is a 71-year-old male admitted with a reason for visit of Urinary Tract Infection. Constitutional: Denies: Chills Skin: Denies: Rash Pulmonary: Denies: Dyspnea, Cough Cardiovascular: Denies: Chest Pain Gastrointestinal: Denies: Nausea, Vomiting Objective Physical Examination General Exam: Positive: Alert, No Acute Distress Eye Exam: Positive: PERRLA, Conjunctiva & lids normal, EOMI, Negative: Sclera icteric Neck Exam: Positive: Supple, Negative: JVD, thyromegaly Chest Exam: Positive: Clear to auscultation, Normal air movement Heart Exam: Positive: Rate Normal, Regular Rhythm, Normal S1, Normal S2, Negative: Murmurs, Rubs Abdomen Exam: Positive: Normal bowel sounds, Soft, Hernia (LLQ, soft, mildly tender), Negative: Tenderness, Hepatospenomegaly Extremity Exam: Negative: Clubbing Skin Exam: Positive: Nl turgor and temperature Psych Exam: Positive: Oriented x 3 Assessment /Plan Problems (1) Epididymitis, right Problem Text: Slowly improving 05/20 new onset-tender only to palpation confirmed by 05/20 scrotal US-no signs of abscess (2) UTI (urinary tract infection) due to urinary indwelling catheter Status: Acute Problem Text: D5 cefepime (05/20 held vanco p 3D) 05/22 WBC 7.4 (11.3), afebrile 05/20 WBC 10.5 (9.1), Tm 103 05/19 1750. 05/18 UCX P.aeruginosa >100K sens cefepime 05/18 BCX NG x 2 05/18 CT AP . Limited noncontrast examination demonstrates no detectable evidence of renal mass, calculus, or obstruction. Ureters are normal and suprapubic catheter is in place in the urinary bladder. Prostate is enlarged 05/20 scrotal US Impression: Right-sided epididymitis 05/18 CXR NAD (3) JANEEN (acute kidney injury) Status: Acute Problem Text: prior to admission-3W diarrhea-none since admission 05/22 22/1.2, 4.5 05/21 191/1.1, 3.9; therefore, SLIV 05/20 22/1.7, 4.0- -1L since admission; therefore, held fur 20, frank 25, vanco and fenofibrate, started 1/2 nS 20 KCL at 50 baseline cr 1.2 (4) Neuromuscular dysfunction of bladder Status: Chronic Problem Specific Plan: Monitor Clinically (5) Paraplegia Status: Chronic Response to Treatment: Stable Problem Specific Plan: Monitor Clinically (6) HTN (hypertension) Status: Chronic Response to Treatment: Stable Problem Specific Plan: Monitor Clinically (7) T2DM (type 2 diabetes mellitus) Status: Chronic Response to Treatment: Stable Problem Text: HD Lantus 05/22 BG mainly low 200s 05/21 given AM 76, decreased to (8) A-fib Status: Chronic Response to Treatment: Stable Problem Specific Plan: Monitor Clinically Problem Text: carved 3.125 BID rate control apixiban anticoag (9) Severe sepsis Status: Acute Response to Treatment: Stable Problem Text: rx as per UTI (10) Physical deconditioning Status: Acute Problem Text: baseline ambulates 05/06 PT not safe to dc home Plan/VTE VTE Prophylaxis Ordered?: Yes (heparin) VS, I&O, 24H, [facility] Vital Signs/I&O Vital Signs Date Time Temp Pulse Resp B/P (MAP) Pulse Ox O2 Delivery O2 Flow Rate FiO2 05/22/17 09:48 Room Air 05/22/17 09:11 70 122/59 05/22/17 06:00 97.1 18 96 05/20/17 06:00 2.0 I&O- Last 24 Hours up to 6 AM 05/22/17 06:00 Intake Total 2390 ml Output Total 4250 ml Balance -1860 ml Laboratory Data 24H LABS Laboratory Tests 2 05/21/17 20:22: Bedside Glucose (Misc Panel) 267H 05/22/17 05:28: Anion Gap 8, Glomerular Filtration Rate > 60.0, Blood Urea Nitrogen 22H, Creatinine 1.15, Sodium Level 139, Potassium Level 4.5, Chloride Level 105, Carbon Dioxide Level 26, Calcium Level 9.2 05/22/17 12:12: Bedside Glucose (Misc Panel) 206H 05/22/17 16:52: Bedside Glucose (Misc Panel) 211H CBC/BMP Laboratory Tests 05/22/17 05:28 Calcium Level 9.2 05/22/17 06:04 Red Blood Count 4.15 L, Mean Corpuscular Volume 84.6, Mean Corpuscular Hemoglobin 29.6, Mean Corpuscular Hemoglobin Concent 34.9, Red Cell Distribution Width 13.4 Microbiology Microbiology 05/18/17 Blood Culture - Preliminary, Resulted No Growth after 72 hours. All specime... 05/18/17 Blood Culture - Preliminary, Resulted No Growth after 72 hours. All specime... 05/18/17 Urine Culture - Final, Complete Pseudomonas Aeruginosa Corynebacterium Species Jem Goff M.D. May 22, 2017 17:28
[2017-05-22] MEDS: LORATADINE 10 MG TAB PO SCH (20:37)
[2017-05-22] MEDS: SOLIFENACIN 5 MG TAB PO SCH (20:38)
[2017-05-22 22:00] VITALS: BP 113/59
[2017-05-23] MEDS: HEPARIN SOD (PORCINE) 5000 UNITS/ML VIAL SC SCH ×3 (05:39→21:31)
[2017-05-23 06:00] VITALS: BP 114/63
[2017-05-23] MEDS ORDERED: LevoFLOXacin 250 MG TABLET PO SCH (06:00)
[2017-05-23] MEDS: CEFEPIME HCL 1 GM in D5W MINI-BAG PLUS 50 ML IV SCH (06:20)
[2017-05-23 07:16] LABS: MEAN CORPUSCULAR HEMOGLOBIN 28.6 pg (27.0-33.0); MEAN CORPUSCULAR HGB CONC 33.1 g/dl (32.0-36.5); MEAN CORPUSCULAR VOLUME 86.4 fl (80.0-96.0); RED CELL DISTRIBUTION WIDTH 13.5 % (11.5-14.5)
[2017-05-23 07:24] LABS: ANION GAP 8 MEQ/L (8-16); BLOOD UREA NITROGEN 24 MG/DL (7-18); CALCIUM LEVEL 9.7 MG/DL (8.8-10.2); CARBON DIOXIDE LEVEL 28 MEQ/L (21-32); CHLORIDE LEVEL 101 MEQ/L (98-107); GLOMERULAR FILTRATION RATE > 60.0 (>42); GLUCOSE, FASTING 214 MG/DL (83-110); POTASSIUM SERUM 4.7 MEQ/L (3.5-5.1); SODIUM LEVEL 137 MEQ/L (136-145)
[2017-05-23] MEDS: HumaLOG INSULIN (NovoLOG) PER UNIT SC SCH ×4 (07:48→21:00)
--- NOTE | 2017-05-23 07:52 | ECGEPIP ---
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
[2017-05-23] MEDS: GABAPENTIN 300 MG CAP PO SCH ×3 (08:08→21:33)
[2017-05-23] MEDS: DOCUSATE SODIUM 100 MG CAP PO SCH ×2 (08:08→21:32)
[2017-05-23] MEDS: APIXABAN 5 MG TAB (ELIQUIS) PO SCH ×2 (08:10→21:33)
[2017-05-23] MEDS: CARVedilol 3.125 MG TAB PO SCH ×2 (08:10→21:34)
[2017-05-23] MEDS: BACLOFEN 10 MG TAB PO SCH ×3 (08:11→21:32)
[2017-05-23] MEDS: LACTOBACILLUS ACIDOPHILUS CAP (BACID) PO SCH ×3 (08:12→17:03)
[2017-05-23] MEDS: MAGNESIUM OXIDE 400 MG TAB (MAG-OX) PO SCH ×2 (08:13→21:33)
[2017-05-23] MEDS: LEVEMIR (INSULIN DETEMIR) 1 UNITS/0.01ML SC SCH ×2 (08:14→21:31)
--- NOTE | 2017-05-23 08:49 | IPNPDOC ---
Subjective Date Seen The patient was seen on 05/23/17. Subjective Chief Complaint/HPI The patient is a 71-year-old male admitted with a reason for visit of Urinary Tract Infection. Events since last encounter Pt this morning notes continued hematuria, states yesterday there was clots, doesn't appear to be today. General: Denies: Fatigue Constitutional: Denies: Chills, Fever ENT: Denies: Head Aches Pulmonary: Denies: Dyspnea, Cough Cardiovascular: Denies: Chest Pain, Palpitations Gastrointestinal: Denies: Nausea, Vomiting, Diarrhea Genitourinary: Reports: Hematuria Neurological: Reports: Weakness Psych: Reports: Mood Normal Objective Physical Examination General Exam: Positive: Alert, No Acute Distress Eye Exam: Negative: Sclera icteric Neck Exam: Positive: Supple, Negative: JVD, thyromegaly Chest Exam: Positive: Clear to auscultation, Normal air movement Heart Exam: Positive: Rate Normal, Regular Rhythm, Normal S1, Normal S2, Negative: Murmurs, Rubs Abdomen Exam: Positive: Normal bowel sounds, Soft, Hernia (LLQ, soft, mildly tender), Negative: Tenderness, Hepatospenomegaly Extremity Exam: Negative: Clubbing Skin Exam: Positive: Nl turgor and temperature Psych Exam: Positive: Oriented x 3 Assessment /Plan Problems (1) UTI (urinary tract infection) due to urinary indwelling catheter Status: Acute Problem Text: D6 cefepime (05/20 held vanco p 3D) 05/23 - Remains with nl WBC, afebrile, plan to change to PO omnicef today. 05/22 WBC 7.4 (11.3), afebrile 05/20 WBC 10.5 (9.1), Tm 103 05/19 1750. 05/18 UCX P.aeruginosa >100K sens cefepime 05/18 BCX NG x 2 05/18 CT AP . Limited noncontrast examination demonstrates no detectable evidence of renal mass, calculus, or obstruction. Ureters are normal and suprapubic catheter is in place in the urinary bladder. Prostate is enlarged 05/20 scrotal US Impression: Right-sided epididymitis 05/18 CXR NAD (2) Epididymitis, right Problem Text: Slowly improving 05/20 new onset-tender only to palpation confirmed by 05/20 scrotal US-no signs of abscess (3) JANEEN (acute kidney injury) Status: Acute Problem Text: prior to admission-3W diarrhea-none since admission 05/22 22/1.2, 4.5 05/21 191/1.1, 3.9; therefore, SLIV 05/20 22/1.7, 4.0- -1L since admission; therefore, held fur 20, frank 25, vanco and fenofibrate, started 1/2 nS 20 KCL at 50 baseline cr 1.2 (4) Neuromuscular dysfunction of bladder Status: Chronic Problem Specific Plan: Monitor Clinically (5) Paraplegia Status: Chronic Response to Treatment: Stable Problem Specific Plan: Monitor Clinically (6) HTN (hypertension) Status: Chronic Response to Treatment: Stable Problem Specific Plan: Monitor Clinically (7) T2DM (type 2 diabetes mellitus) Status: Chronic Response to Treatment: Stable Problem Text: HD Lantus 05/22 BG mainly low 200s 05/21 given AM 76, decreased to (8) A-fib Status: Chronic Response to Treatment: Stable Problem Specific Plan: Monitor Clinically Problem Text: carved 3.125 BID rate control apixiban anticoag (9) Severe sepsis Status: Acute Response to Treatment: Stable Problem Text: rx as per UTI (10) Physical deconditioning Status: Acute Problem Text: baseline ambulates 05/06 PT not safe to dc home Plan/VTE VTE Prophylaxis Ordered?: Yes (heparin) VS, I&O, 24H, Fishbone Vital Signs/I&O Vital Signs Date Time Temp Pulse Resp B/P (MAP) Pulse Ox O2 Delivery O2 Flow Rate FiO2 05/23/17 08:10 60 114/63 05/23/17 06:00 97.4 18 94 Room Air 05/20/17 06:00 2.0 I&O- Last 24 Hours up to 6 AM 05/23/17 06:00 Intake Total 350 ml Output Total 3475 ml Balance -3125 ml Laboratory Data 24H LABS Laboratory Tests 2 05/22/17 12:12: Bedside Glucose (Misc Panel) 206H 05/22/17 16:52: Bedside Glucose (Misc Panel) 211H 05/22/17 20:21: Bedside Glucose (Misc Panel) 183H 05/23/17 06:14: Anion Gap 8, Glomerular Filtration Rate > 60.0, Blood Urea Nitrogen 24H, Creatinine 1.10, Sodium Level 137, Potassium Level 4.7, Chloride Level 101, Carbon Dioxide Level 28, Calcium Level 9.7 CBC/BMP Laboratory Tests 05/23/17 06:13 Red Blood Count 4.29 L, Mean Corpuscular Volume 86.4, Mean Corpuscular Hemoglobin 28.6, Mean Corpuscular Hemoglobin Concent 33.1, Red Cell Distribution Width 13.5 05/23/17 06:14 Calcium Level 9.7 Microbiology Microbiology 05/18/17 Blood Culture - Preliminary, Resulted No Growth after 72 hours. All specime... 05/18/17 Blood Culture - Preliminary, Resulted No Growth after 72 hours. All specime... 05/18/17 Urine Culture - Final, Complete Pseudomonas Aeruginosa Corynebacterium Species Attending Note Attending Note changing to po med to cover pseudomonas. not convinced cefdinir will work as a substitute for cefepime so will change to levofloxacin at 250mg dose JACK CAMARGO PA-C May 23, 2017 08:49 [address] Mina MD May 23, 2017 15:26
[2017-05-23] MEDS: LevoFLOXacin 500 MG TABLET PO SCH (16:43)
[2017-05-23] MEDS: BISACODYL 10 MG SUPP PR PRN (19:31)
[2017-05-23] MEDS ORDERED: CEFDINIR 300 MG CAP (OMNICEF) PO SCH (21:00)
[2017-05-23] MEDS: LORATADINE 10 MG TAB PO SCH (21:32)
[2017-05-23] MEDS: SOLIFENACIN 5 MG TAB PO SCH (21:32)
[2017-05-23 22:00] VITALS: BP 162/82
[2017-05-24] MEDS: LevoFLOXacin 500 MG TABLET PO SCH (05:49)
[2017-05-24] MEDS: HEPARIN SOD (PORCINE) 5000 UNITS/ML VIAL SC SCH (05:49)
[2017-05-24 06:00] VITALS: BP 169/82
[2017-05-24 07:07] LABS: MEAN CORPUSCULAR HEMOGLOBIN 29.1 pg (27.0-33.0); MEAN CORPUSCULAR HGB CONC 34.2 g/dl (32.0-36.5); RED CELL DISTRIBUTION WIDTH 13.4 % (11.5-14.5); WHITE BLOOD COUNT 6.3 K/mm3 (4.0-10.0)
[2017-05-24 07:28] LABS: ANION GAP 4 MEQ/L (8-16); BLOOD UREA NITROGEN 22 MG/DL (7-18); CALCIUM LEVEL 9.3 MG/DL (8.8-10.2); CARBON DIOXIDE LEVEL 30 MEQ/L (21-32); CHLORIDE LEVEL 99 MEQ/L (98-107); CREATININE FOR GFR 1.05 MG/DL (0.70-1.30); GLOMERULAR FILTRATION RATE > 60.0 (>42); GLUCOSE, FASTING 196 MG/DL (83-110); POTASSIUM SERUM 4.2 MEQ/L (3.5-5.1); SODIUM LEVEL 133 MEQ/L (136-145)
[2017-05-24] MEDS: HumaLOG INSULIN (NovoLOG) PER UNIT SC SCH (08:45)
[2017-05-24] MEDS: BACLOFEN 10 MG TAB PO SCH (08:46)
[2017-05-24] MEDS: APIXABAN 5 MG TAB (ELIQUIS) PO SCH (08:46)
[2017-05-24] MEDS: GABAPENTIN 300 MG CAP PO SCH (08:46)
[2017-05-24] MEDS: MAGNESIUM OXIDE 400 MG TAB (MAG-OX) PO SCH (08:46)
[2017-05-24] MEDS: LACTOBACILLUS ACIDOPHILUS CAP (BACID) PO SCH (08:46)
[2017-05-24] MEDS: LEVEMIR (INSULIN DETEMIR) 1 UNITS/0.01ML SC SCH (08:46)
[2017-05-24 08:47] VITALS: BP 169/82
[2017-05-24] MEDS: DOCUSATE SODIUM 100 MG CAP PO SCH (08:47)
[2017-05-24] MEDS: CARVedilol 3.125 MG TAB PO SCH (08:47)
[2017-05-24] MEDS ORDERED: RISATAB3 PO (09:37)
[2017-05-24] MEDS ORDERED: LEVA1TAB2 PO (09:37)
--- NOTE | 2017-05-24 09:59 | DSES ---
DATE OF ADMISSION: 05/18/2017 DATE OF DISCHARGE: 05/24/2017 PRIMARY CARE PROVIDER: Leo Schreiber MD ATTENDING PHYSICIAN: Lane Mina MD HISTORY: This is a 71-year-old male patient who has chronic suprapubic catheter usage, who presented to [facility] Emergency Room with generally not feeling well, fevers, chills, worsening fatigue, as well as a vague abdominal discomfort. He was admitted to the hospital for urinary tract infection. Initially started on cefepime and vancomycin. His urine culture was obtained and grew out pseudomonas and corynebacterium. Blood cultures were negative times two. His antibiotics at that time were then adjusted. He also developed new-onset tender to palpation right testicular pain, felt to be of epididymitis. He has had significant improvement in his pain. His urine has cleared, as well. He is feeling better. He has been changed to oral Levaquin, which he seems to be tolerating well. He also has been placed on probiotics. He has been seen by physical therapy, who feel as though he is safe to be discharged home. His discharge medications include: - levofloxacin 500 mg by mouth daily times 7 days - probiotic two tablets with meals times 7 days - Eliquis 5 mg twice daily - Baclofen 20 mg twice daily - carvedilol 3.125 mg twice daily - clotrimazole topically twice daily as needed for rash or itching - fenofibrate 145 mg daily - furosemide 20 mg daily - gabapentin 600 mg three times a day - Lantus 52 units in the morning, 25 units in the evening - insulin sliding scale - loratadine 10 mg before bed - magnesium oxide 800 mg twice daily - Nitrostat sublingually as needed for chest pain - Nystatin powder twice daily as needed for rash - VESIcare 10 mg before bed - spironolactone 12.5 mg daily - vitamin D 50,000 units weekly - Zicam intranasally before bed DISCHARGE PLAN: Will be to followup with Dr. Schreiber in 1 week. His activity should be as tolerated. His diet should be consistent carbohydrate. He received a flu vaccine on 05/20/2017 during his hospitalization. Edited: 05/25/2017 [id number]
== END 2017-05-24 12:15 | disposition home health service (06) | DRG 699 ==
LOC: M ED 17:10 → M ED INP 19:44 → M MS5PR 21:50
PROVIDERS: ADMIT Internal Medicine; ATTEND Family Medicine
DX: T83.511A Infection and inflammatory reaction due to indwelling urethral catheter, initial encounter (principal); G82.20 Paraplegia, unspecified; N17.9 Acute kidney failure, unspecified; N39.0 Urinary tract infection, site not specified; B96.5 Pseudomonas (aeruginosa) (mallei) (pseudomallei) as the cause of diseases classified elsewhere; N45.1 Epididymitis; Z79.01 Long term (current) use of anticoagulants; Z79.4 Long term (current) use of insulin; I48.91 Unspecified atrial fibrillation; I11.9 Hypertensive heart disease without heart failure; N40.0 Benign prostatic hyperplasia without lower urinary tract symptoms; E78.5 Hyperlipidemia, unspecified; E55.9 Vitamin D deficiency, unspecified; G47.33 Obstructive sleep apnea (adult) (pediatric); Z96.652 Presence of left artificial knee joint; R31.9 Hematuria, unspecified; Y84.6 Urinary catheterization as the cause of abnormal reaction of the patient, or of later complication, without mention of misadventure at the time of the procedure

== ENCOUNTER → 2017-06-02 | Outpatient (REF) | payer MEDICARE, MEDICAID ==
[~2017-06-02] MED LIST changes: +LEVA1TAB2 PO; +RISATAB3 PO; +ZICAGEL2
[2017-06-02 12:56] LABS: MEAN CORPUSCULAR HEMOGLOBIN 27.6 pg (27.0-33.0); MEAN CORPUSCULAR HGB CONC 32.1 g/dl (32.0-36.5); MEAN CORPUSCULAR VOLUME 86.2 fl (80.0-96.0); RED CELL DISTRIBUTION WIDTH 13.6 % (11.5-14.5); WHITE BLOOD COUNT 8.4 10^3/uL (4.0-10.0)
[2017-06-02 13:13] LABS: ALBUMIN 3.2 GM/DL (3.2-5.2); ALBUMIN/GLOBULIN RATIO 0.73 (1.00-1.93); BILIRUBIN,TOTAL 0.3 MG/DL (0.2-1.0); CALCIUM LEVEL 9.6 MG/DL (8.8-10.2); CREATININE FOR GFR 1.28 MG/DL (0.70-1.30); POTASSIUM SERUM 4.5 MEQ/L (3.5-5.1); TOTAL PROTEIN 7.6 GM/DL (6.4-8.2)
== END ==
LOC: M SFHCADAM 10:12
PROVIDERS: ATTEND Family Medicine
DX: N18.4 Chronic kidney disease, stage 4 (severe) (principal); E11.65 Type 2 diabetes mellitus with hyperglycemia; I50.32 Chronic diastolic (congestive) heart failure; E78.5 Hyperlipidemia, unspecified
CPT/HCPCS: 80053; 80061; 83036; 85027; G0463

== ENCOUNTER 2017-07-27 08:09 | Inpatient (IN) | payer MEDICARE, MEDICAID ==
[~2017-07-27] VITALS: Ht 165.1 cm; Wt 100.0 kg
[2017-07-27] MEDS ORDERED: APIXABAN 5 MG TAB (ELIQUIS) PO SCH (09:00)
[2017-07-27] MEDS ORDERED: NS 1,000 ML IV SCH ×2 (09:30→12:26)
[2017-07-27] MEDS ORDERED: fentaNYL 100 MCG/2 ML INJECTION (J3010) IV ONE (10:00)
[2017-07-27] MEDS ORDERED: ONDANSETRON 4MG/2ML VIAL (J2405) IV ONE (10:00)
[2017-07-27 10:12] LABS: BASO % 0.3 % (0.0-1.0); EOS # 0.1 10^3/uL (0.0-0.50); IMMATURE GRANULOCYTE % 0.4 % (0-0); LYMPH # 2.3 10^3/uL (1.5-4.5); LYMPH % 20.3 % (24.0-44.0); MEAN CORPUSCULAR HEMOGLOBIN 27.4 pg (27.0-33.0); MEAN CORPUSCULAR HGB CONC 32.8 g/dl (32.0-36.5); MEAN CORPUSCULAR VOLUME 83.7 fl (80.0-96.0); MONO # 0.8 10^3/uL (0.0-0.8); PLATELET COUNT, AUTOMATED 239 10^3/uL (150-450); RED CELL DISTRIBUTION WIDTH 13.9 % (11.5-14.5); WHITE BLOOD COUNT 11.2 10^3/uL (4.0-10.0)
[2017-07-27 10:18] LABS: INR 1.28
[2017-07-27 10:30] LABS: ALBUMIN 3.4 GM/DL (3.2-5.2); ALBUMIN/GLOBULIN RATIO 0.74 (1.00-1.93); BILIRUBIN,DIRECT 0.2 MG/DL (0.0-0.2); BILIRUBIN,TOTAL 0.5 MG/DL (0.2-1.0); CALCIUM LEVEL 9.9 MG/DL (8.8-10.2); CREATININE FOR GFR 1.53 MG/DL (0.70-1.30)
[2017-07-27] MEDS ORDERED: ISOVUE-370 76% 100ML VIAL (Q9967) As Ordered ONE (10:34)
--- NOTE | 2017-07-27 11:15 | REP ---
Clinical: Right lower quadrant pain. Technique: Axial contrast enhanced images from the lung bases to the pubic symphysis using 100 ml Isovue 370 intravenous contrast material with coronal and sagittal re-formations. Comparison: 05/18/2017. Findings: Diffuse high-grade small bowel obstruction is appreciated and appears to be secondary to a ventral hernia along the lower abdominal pelvic wall which contains dilated fluid-filled small bowel along with efferent collapsed loop of small bowel exiting the hernia (images 110 - 158). These findings are in relation to a previous ventral hernia repair with mesh identified as well as small amount of free fluid in the hernia sac. No free air. No drainable collection/abscess. Remainder of the enteric system is unremarkable. Liver, spleen, pancreas, gallbladder, bilateral adrenal glands and kidneys are relatively normal / stable. Pelvis demonstrates a suprapubic Nuñez catheter in partially collapsed bladder as well as enlarged heterogeneous prostate gland having mass effect on the base of the bladder and partially obscured due to metallic artifact from right hip replacement. No ascites. No adenopathy. No obvious solitary mass lesion. Abdominal aorta without aneurysm or dissection. IVC filter identified in stable position. Musculoskeletal structures demonstrate age-related degenerative changes. Lung bases demonstrate minimal basilar atelectasis. Impression: High-grade small bowel obstruction secondary to ventral hernia. Signed by Michael Man MD 07/27/2017 11:07 A
[2017-07-27] MEDS: HumaLOG INSULIN (NovoLOG) PER UNIT SC SCH ×2 (12:00→17:49)
[2017-07-27] MEDS ORDERED: NITR100C2 PO (12:19)
[2017-07-27] MEDS ORDERED: PROMETHAZINE INJ 25 MG/ML VIAL (J2550) IV PRN (12:30)
[2017-07-27] MEDS ORDERED: CLOTRIMAZOLE 1% TOPICAL CREAM 30GM TOP PRN (12:30)
[2017-07-27] MEDS ORDERED: metroNIDAZOLE 250 MG in APPROPRIATE DILUENT 1 EA IV SCH (12:45)
[2017-07-27] MEDS ORDERED: GLUCOSE 4 GM CHEW TABLET PO PRN (13:15)
[2017-07-27] MEDS ORDERED: DEXTROSE 50% 50 ML SYRINGE IV PRN (13:15)
[2017-07-27] MEDS ORDERED: GLUCAGON FOR INJ 1 MG VIAL (J1610) SC PRN (13:15)
[2017-07-27 14:00] VITALS: BP 113/69
[2017-07-27] MEDS: METOCLOPRAMIDE INJ 10MG/2ML VIAL (J2765) IV PRN ×2 (14:40→20:58)
[2017-07-27] MEDS: CIPROFLOXACIN 400 MG in APPROPRIATE DILUENT 1 EA IV SCH (15:45)
[2017-07-27] MEDS: CARVedilol 3.125 MG TAB PO SCH ×2 (16:04→20:59)
[2017-07-27] MEDS: DOCUSATE SODIUM 100 MG CAP PO SCH ×2 (16:04→20:58)
[2017-07-27] MEDS: BACLOFEN 10 MG TAB PO SCH ×2 (16:04→20:58)
[2017-07-27] MEDS ORDERED: HYDROmorphone HCL 1 MG/ML SYRINGE (J1170) IV PRN ×2 (16:15)
[2017-07-27] MEDS: D5W/0.9% SODIUM CHLORIDE 1,000 ML IV SCH (16:27)
[2017-07-27] MEDS: PANTOPRAZOLE 40MG INJ (PROTONIX) (C9113) IV SCH (16:37)
[2017-07-27] MEDS: metroNIDAZOLE 500 MG in APPROPRIATE DILUENT 1 EA IV SCH ×2 (16:37→22:09)
[2017-07-27 18:00] VITALS: BP 111/65
[2017-07-27] MEDS: ENOXAPARIN 100MG/1ML SYRINGE (J1650) SC SCH (20:58)
[2017-07-27] MEDS: BISACODYL 10 MG SUPP PR SCH (20:59)
--- NOTE | 2017-07-27 21:37 | HPE ---
DATE OF ADMISSION: 07/27/2017 The patient is a 71-year-old man who presents with a history of paraplegia that he has required to use a suppository to have bowel movements. He actually has an interesting history of whether it is week-long history of diarrhea mixed with some constipation issues and it is hard to tell at this point when I ask him and he seems somewhat confused about the timing of this, but has had some diarrhea and then states he has not had any bowel movement since Tuesday. Despite having using suppositories every other day. He is not having any fevers or chills. No nausea last week, however, some nausea and vomiting that occurred last night and no vomiting since that time. He has had no blood per rectum. PAST MEDICAL HISTORY: Significant for: 1. History of tumor removed from his thoracic spine with a history of paraplegia. 2. History of hernia repair times six. 3. History of colon resection for diverticulitis. 4. History of suprapubic catheter. 5. History of ganglion cyst removal 6. History of basal cell cancer 7. History of neuropathy. 8. History of diabetic neuropathy. 9. History of metabolic encephalopathy. 10. History of hypercholesterolemia. 11. Hypertension. 12. Asthma. 13. Pneumonia. 14. History of kidney infections (multiple and many). 15. History of benign prostatic hypertrophy (BPH). 16. History of diabetes mellitus. 17. History of fatty liver disease. 18. History of vitamin D and iron deficiency. 19. History of chronic back pain. 20. History of Methicillin-resistant Staphylococcus aureus (MRSA). MEDICATIONS: Include the following: - baclofen - carvedilol - Eliquis - Humalog insulin - Lantus insulin - vitamin D - magnesium oxide - fenofibrate - Neurontin - Vesicare - spironolactone - clotrimazole - nystatin - loratadine - nitroglycerin - furosemide - insulin - nitrofurantoin macrocrystals PHYSICAL EXAMINATION: Reveals a 71-year-old male who looks older than stated age. HEENT is unremarkable, although he does have a bloody nose from attempted NG tube placement. HEENT: Unremarkable otherwise. Lungs: Diminished bilaterally with diffuse crackles and wheezes at the bases. Heart: Is regular with multiple irregular beats. Abdomen is softly distended. He is not significantly tender. No guarding. No rebound. He does have a very large right-sided abdominal hernia that is relatively easy to reduce to some extent, but because of his abdominal girth this does not reduce completely. Extremities: Warm, well-perfused. IMPRESSION AND PLAN: The patient has evidence of distended small bowel, but he also air and stool within his colon and I am not appreciating any significant transition zone. I anticipate this probably is more of an ileus than it is truly an obstruction. He does have an elevated white count of 11.2 and he may have an ileus associated with urinary tract infection as his primary etiology. I will start him on some antibiotics empirically. Will see how he does over the ensuing 12 to 24 hours. Unfortunately, because the NG tube was not able to be passed, will keep him nothing by mouth (npo) until we see how he does overnight. If he has ongoing problems with nausea, vomiting, may consider reattempting his NG tube. At this point, will have medicine evaluate him for his multiple medical issues and make recommendations associated with this.
[2017-07-27 22:00] VITALS: BP 146/74
--- NOTE | 2017-07-27 22:37 | CR ---
DATE OF CONSULTATION: 07/27/2017 REASON FOR CONSULTATION: Management of medical issues. HISTORY OF PRESENT ILLNESS: This is a 71-year-old man with a history of multiple hernia repairs who presents with abdominal pain, nausea, and vomiting. The patient reports he has had diarrhea for 7 days. He reports he had multiple episodes of vomiting overnight and continues to have some nausea today. He was evaluated in the emergency department where a CT scan of his abdomen and pelvis showed a high grade small bowel obstruction, possibly secondary to a ventral hernia. General surgery was consulted and agreed to admit the patient. There were attempts made to place a nasogastric (NG) tube, but these were unsuccessful due to patient's chronic neck deformities. We were consulted for medical management. The patient has an extensive medical history as below. He denies any other complaints today. PAST MEDICAL HISTORY: 1. Hypertension. 2. Rheumatoid arthritis and ankylosing spondylitis. 3. BPH. 4. Migraines. 5. Type 2 diabetes, insulin dependent. 6. Hyperlipidemia. 7. Diabetic nephropathy. 8. Vitamin D deficiency. 9. History of pancreatitis, last episode in 2010. 10. History of fatty liver with abnormal liver function tests. 11. Testosterone deficiency. 12. Erectile dysfunction. 13. Atrial fibrillation. 14. Diastolic congestive heart failure. 15. Iron deficiency anemia. 16. History of hypomagnesemia. 17. Disc disease of the cervical (C) spine. 18. Obstructive sleep apnea on continuous positive airway pressure (CPAP). 19. 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 20. History of urinary retention with open cystostomy and patient has a suprapubic catheter in place. PAST SURGICAL HISTORY: 1. Left hemicolectomy. 2. Left knee replacement. 3. Right total hip replacement. 4. Six hernia repairs in the past per patient. 5. Thoracic decompressive laminectomy due to spinal cord lipoma in 2013. 6. Bladder biopsy in 2013. 7. Suprapubic catheter placement in 2013. HOME MEDICATIONS: - acetaminophen 650 mg one tablet every 6 hours as needed for pain - Zofran 4 mg four times a day as needed for nausea - Eliquis 5 mg by mouth twice a day - carvedilol 3.125 mg by mouth twice a day - gabapentin 600 mg by mouth three times a day - nystatin applied to groin and testicles twice a day - Flonase 50 mcg spray one spray in each nostril once a day - spironolactone 12.5 mg by mouth daily - Lasix 20 mg by mouth daily - magnesium 400 mg by mouth twice a day - loratadine 10 mg by mouth daily - Drisdol 50,000 units by mouth weekly - Colace 100 mg by mouth as needed twice a day - Dulcolax 5 mg by mouth as needed once a day - bisacodyl 10 mg suppository one suppository as needed daily - Tricor 145 mg by mouth daily - Lantus 52 units in the morning and 40 units in the evening - Humalog per sliding scale - clotrimazole 1% cream applied to groin externally twice a day - Macrobid 100 mg by mouth daily - VESIcare 10 mg by mouth daily FAMILY HISTORY: Noncontributory. SOCIAL HISTORY: Patient does not use tobacco or alcohol. ALLERGIES: CARISOPRODOL, reaction is hives. MORPHINE, reaction is hives. MASTISOL, reaction is rash. ANGIOTENSIN CONVERTING ENZYME (SOO) INHIBITOR, reaction is cough. SOMA, reaction is hives. HYDROCHLOROTHIAZIDE, reaction is hives. REVIEW OF SYSTEMS: GENERAL: Patient denies fevers, chills, fatigue. CARDIAC: Patient denies chest pain, palpitations. LUNGS: Patient denies shortness of breath, cough, wheezing. ABDOMEN: Patient admits to diarrhea. Denies black tarry stools. Admits to nausea and vomiting last night and ongoing abdominal pain. UROLOGY: Patient denies dysuria, difficulty urinating, or blood in urine. EARS/NOSE/THROAT (ENT): Patient denies rhinorrhea, ear pain, sore throat. EYES: Patient denies changes in vision. NEUROLOGIC: Patient denies changes in strength or sensation. VITAL SIGNS: Temperature 97.1, pulse 72, respirations 18, blood pressure 103/52 , oxygen saturation 91% on room air. PHYSICAL EXAMINATION: GENERAL: Patient appears tired, but is in no apparent distress. PSYCHIATRIC: Appropriate mood and affect. ENT: Mucous membranes are moist. Pupils are equal, round, and reactive to light. NECK: Supple, no thyromegaly or masses. LUNGS: Clear to auscultation bilaterally. No wheezes, rales, or rhonchi. HEART: No murmurs, regular rate and rhythm. ABDOMEN: Soft, diffusely tender to palpation, but no rebound or guarding; bowel sounds are distant and exam is somewhat limited by body habitus. Large right-sided ventral hernia is noted on exam. NEUROLOGIC: Patient able to move all four extremities spontaneously. Strength 3/5 in bilateral lower extremities which is consistent with his baseline. EXTREMITIES: No lower extremity edema. SKIN: No rashes noted. LABORATORY DATA: Sodium 131, potassium 4.0, BUN 35, creatinine 1.53, glucose 72 , white blood cells 11.2, hemoglobin 15.7, hematocrit 47.9. PT 16.3, INR 1.258, PTT 39.1. ASSESSMENT AND PLAN: 1. Small bowel obstruction: Continue management per general surgery with ciprofloxacin, metronidazole, IV fluids, continue nothing by mouth, continue Zofran, promethazine, and metoclopramide as needed for nausea and vomiting. Continue pantoprazole. 2. Atrial fibrillation: Patient is chronically on Eliquis, however given the fact that his small bowel obstruction may be caused by his hernia, if he does not improve with conservative management he could potentially need surgery. Case was discussed with Dr. Arechiga, who agreed that it is possible he may need surgery. For this reason, we will stop his Eliquis and we will put him on therapeutic Lovenox 1 mg/kg every 12 hours to bridge him for possible surgery. If he does not need surgery, we can then convert to Eliquis. He is rate controlled on his home carvedilol, which we will continue. 3. Diabetes mellitus: Patient is insulin dependent as an outpatient, however his blood sugars are actually on the lower side here with a sugar at 72 this morning. We will hold his home Lantus and check finger stick glucose every 6 hours with sliding scale coverage. 4. Acute kidney injury: Patient has a mildly elevated creatinine of 1.53, his baseline creatinine is around 1.3 and he does have a history of diabetic nephropathy. Patient is receiving fluid hydration for problem #1 and we will recheck a basic metabolic panel in the morning. 5. Hyponatremia with a sodium of 131: This may be related to patient's vomiting and inability to tolerate oral intake recently. He does have a history of a slightly low sodium in the past with a baseline around 135. We will recheck a basic metabolic panel in the morning. 6. History of recurrent urinary tract infections: Patient is chronically on Macrobid for urinary tract infection (UTI) prophylaxis at home. However, he is currently receiving ciprofloxacin so likely does not need Macrobid while on ciprofloxacin. We will restart Macrobid should ciprofloxacin be stopped. 7. Diastolic congestive heart failure: Patient is chronically on Lasix and spironolactone as an outpatient, however his blood pressures have been on the lower side while he has been here so we will hold these for now. 8. Chronic constipation: He has had diarrhea for the last week so we will hold his home bowel regimen for now; this includes MiraLAX, Dulcolax by mouth, and bisacodyl suppository, and Colace. We will hold all other home medications while he is nothing by mouth. [facility]
[2017-07-28] MEDS: D5W/0.9% SODIUM CHLORIDE 1,000 ML IV SCH ×3 (01:58→15:44)
[2017-07-28] MEDS: CIPROFLOXACIN 400 MG in APPROPRIATE DILUENT 1 EA IV SCH ×2 (02:00→14:01)
[2017-07-28 06:00] VITALS: BP 124/57
[2017-07-28] MEDS: HumaLOG INSULIN (NovoLOG) PER UNIT SC SCH ×4 (06:00→17:18)
[2017-07-28] MEDS: metroNIDAZOLE 500 MG in APPROPRIATE DILUENT 1 EA IV SCH ×3 (06:21→22:10)
[2017-07-28 06:47] LABS: MEAN CORPUSCULAR HEMOGLOBIN 28.1 pg (27.0-33.0); MEAN CORPUSCULAR HGB CONC 32.8 g/dl (32.0-36.5); MEAN CORPUSCULAR VOLUME 85.7 fl (80.0-96.0); PLATELET COUNT, AUTOMATED 186 10^3/uL (150-450); RED CELL DISTRIBUTION WIDTH 13.9 % (11.5-14.5); WHITE BLOOD COUNT 6.5 10^3/uL (4.0-10.0)
[2017-07-28 07:06] LABS: CALCIUM LEVEL 8.6 MG/DL (8.8-10.2); CREATININE FOR GFR 1.44 MG/DL (0.70-1.30); GLOMERULAR FILTRATION RATE 51.5 (>42)
[2017-07-28] MEDS: ENOXAPARIN 100MG/1ML SYRINGE (J1650) SC SCH ×2 (09:09→22:09)
[2017-07-28] MEDS: PANTOPRAZOLE 40MG INJ (PROTONIX) (C9113) IV SCH (09:09)
[2017-07-28] MEDS: CARVedilol 3.125 MG TAB PO SCH ×2 (09:09→22:09)
[2017-07-28] MEDS: BISACODYL 10 MG SUPP PR SCH ×2 (09:09→22:10)
[2017-07-28] MEDS: BACLOFEN 10 MG TAB PO SCH ×3 (09:09→22:10)
[2017-07-28] MEDS: DOCUSATE SODIUM 100 MG CAP PO SCH ×2 (09:09→22:10)
[2017-07-28 10:00] VITALS: BP 130/78
--- NOTE | 2017-07-28 11:28 | IPNPDOC ---
Subjective Date Seen The patient was seen on 07/28/17. Subjective Chief Complaint/HPI The patient is a 71-year-old male admitted with a reason for visit of Small Bowel Obstruction. Events since last encounter No BM today. hernia reduced this am by surgeon. Hernia extruded again within a few hours. Constitutional: Denies: Chills, Fever, Night Sweats ENT: Denies: Head Aches, Ear Pain, Dysphagia Pulmonary: Denies: Dyspnea, Cough Cardiovascular: Denies: Chest Pain, Palpitations, Orthopnea, Paroxysmal Noc. Dyspnea, Lt Headedness Objective Physical Examination General Exam: Positive: Alert, No Acute Distress ENT Exam: Positive: Atraumatic, Mucous membr. moist/pink, Pharynx Normal Neck Exam: Positive: Supple, Negative: JVD, thyromegaly Chest Exam: Positive: Clear to auscultation, Normal air movement Heart Exam: Positive: Rate Normal, Regular Rhythm, Normal S1, Normal S2, Negative: Murmurs, Rubs Abdomen Exam: Positive: Soft, Negative: Normal bowel sounds, BS Hyperactive, Tenderness, Hepatospenomegaly Assessment /Plan Problems (1) Small bowel obstruction Status: Acute (2) A-fib Status: Chronic Problem Text: Rate controlled. On Lovenox in anticipation of potential surgical correction. Eliquis on hold (3) DM2 (diabetes mellitus, type 2) Status: Chronic Response to Treatment: Stable Problem Text: Basal insulin on hold due to NPO status. D5NS for IVF (4) Hypertension Status: Chronic Problem Specific Plan: Monitor Clinically (5) Diastolic CHF Status: Chronic Response to Treatment: Stable Problem Text: diuretics on hold due hypotension. Appears well compensated. (6) Spinal stenosis Status: Chronic Plan/VTE VTE Prophylaxis Ordered?: Yes (lovenox) Plan Family Medicine Attending Note: I saw and examined Mr. Camacho this morning; I discussed his care with JUAN JOSE Damon and I agree with her note as documented. (KES) VS, I&O, 24H, Fishbone Vital Signs/I&O Vital Signs Date Time Temp Pulse Resp B/P (MAP) Pulse Ox O2 Delivery O2 Flow Rate FiO2 07/28/17 10:00 97.2 63 14 130/78 (95) 95 Nasal Cannula 2.0 I&O- Last 24 Hours up to 6 AM 07/29/17 06:00 Intake Total 1357 ml Output Total 550 ml Balance 807 ml Laboratory Data 24H LABS Laboratory Tests 2 07/27/17 15:56: Bedside Glucose (Misc Panel) 58L 07/27/17 16:09: Bedside Glucose (Misc Panel) 135H 07/27/17 17:23: Bedside Glucose (Misc Panel) 122H 07/28/17 00:36: Bedside Glucose (Misc Panel) 140H 07/28/17 05:14: Bedside Glucose (Misc Panel) 159H 07/28/17 06:29: Nucleated Red Blood Cells % (auto) 0.0, Anion Gap 6L, Glomerular Filtration Rate 51.5, Blood Urea Nitrogen 30H, Creatinine 1.44H, Sodium Level 133L, Potassium Level 4.0, Chloride Level 100, Carbon Dioxide Level 27, Calcium Level 8.6L CBC/BMP Laboratory Tests 07/28/17 06:29 Red Blood Count 4.41, Mean Corpuscular Volume 85.7, Mean Corpuscular Hemoglobin 28.1, Mean Corpuscular Hemoglobin Concent 32.8, Red Cell Distribution Width 13.9 , Calcium Level 8.6 L Katarina Langford Jul 28, 2017 11:28 MAREK FAULKNER MD Jul 28, 2017 12:44
[2017-07-28 14:00] VITALS: BP 124/60
[2017-07-28 22:00] VITALS: BP 140/72
[2017-07-29] MEDS: D5W/0.9% SODIUM CHLORIDE 1,000 ML IV SCH ×3 (00:03→21:08)
[2017-07-29] MEDS: CIPROFLOXACIN 400 MG in APPROPRIATE DILUENT 1 EA IV SCH ×2 (01:19→13:42)
[2017-07-29] MEDS: HumaLOG INSULIN (NovoLOG) PER UNIT SC SCH ×4 (05:43→16:59)
--- NOTE | 2017-07-29 05:55 | ECGEPIP ---
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 Order Number: [id number] Reading MD: Shemar Plascencia Measurements Intervals [place] Rate: 69 P: MT: 0 QRS: 112 QRSD: 167 T: 34 QT: 438 QTc: 472 Interpretive Statements ATRIAL FIBRILLATION MARKED RIGHT AXIS DEVIATION RIGHT BUNDLE BRANCH BLOCK SEPTAL MYOCARDIAL INFARCTION, OF INDETERMINATE AGE SIMILAR TO 05/18/17 Electronically Signed On 07-29-2017 5:55:23 EST by Shemar Plascencia
[2017-07-29 06:00] VITALS: BP 113/53
[2017-07-29] MEDS: metroNIDAZOLE 500 MG in APPROPRIATE DILUENT 1 EA IV SCH ×3 (06:14→23:25)
[2017-07-29 06:29] LABS: MEAN CORPUSCULAR HEMOGLOBIN 27.9 pg (27.0-33.0); MEAN CORPUSCULAR HGB CONC 32.5 g/dl (32.0-36.5); MEAN CORPUSCULAR VOLUME 85.8 fl (80.0-96.0); PLATELET COUNT, AUTOMATED 202 10^3/uL (150-450); RED CELL DISTRIBUTION WIDTH 14.1 % (11.5-14.5); WHITE BLOOD COUNT 5.5 10^3/uL (4.0-10.0)
[2017-07-29 06:47] LABS: ANION GAP 7 MEQ/L (8-16); BLOOD UREA NITROGEN 18 MG/DL (7-18); CALCIUM LEVEL 8.8 MG/DL (8.8-10.2); CARBON DIOXIDE LEVEL 26 MEQ/L (21-32); CHLORIDE LEVEL 106 MEQ/L (98-107); CREATININE FOR GFR 1.18 MG/DL (0.70-1.30); GLOMERULAR FILTRATION RATE > 60.0 (>42); GLUCOSE, FASTING 121 MG/DL (83-110); SODIUM LEVEL 139 MEQ/L (136-145)
[2017-07-29] MEDS: CARVedilol 3.125 MG TAB PO SCH ×2 (08:40→21:05)
[2017-07-29] MEDS: DOCUSATE SODIUM 100 MG CAP PO SCH ×2 (08:40→21:05)
[2017-07-29] MEDS: ENOXAPARIN 100MG/1ML SYRINGE (J1650) SC SCH ×2 (08:40→21:05)
[2017-07-29] MEDS: BACLOFEN 10 MG TAB PO SCH ×3 (08:40→21:05)
[2017-07-29] MEDS: PANTOPRAZOLE 40MG INJ (PROTONIX) (C9113) IV SCH (08:40)
[2017-07-29] MEDS: BISACODYL 10 MG SUPP PR SCH ×2 (08:41→21:00)
[2017-07-29 10:00] VITALS: BP 119/64
--- NOTE | 2017-07-29 13:51 | IPNPDOC ---
Subjective Date Seen The patient was seen on 07/29/17. Subjective Chief Complaint/HPI The patient is a 71-year-old male admitted with a reason for visit of Small Bowel Obstruction. Events since last encounter Patient states he is feeling a lot better. He does report that his sugars have been up and down a little bit. He denies any dizziness, lightheadedness today. Constitutional: Denies: Chills, Fever Pulmonary: Reports: Cough, Denies: Dyspnea Cardiovascular: Denies: Chest Pain Gastrointestinal: Reports: Abdominal Pain (secondary to coughing), Denies: Nausea, Vomiting Objective Physical Examination General Exam: Positive: Alert, No Acute Distress Chest Exam: Positive: Clear to auscultation, Normal air movement, Negative: Rales, Rhonchi, Wheezing Heart Exam: Positive: Rate Normal, Regular Rhythm, Normal S1, Normal S2, Negative: Gallops, Murmurs, Rubs Abdomen Exam: Positive: Normal bowel sounds, Soft, Tenderness (diffuse tenderness to palpation), Negative: Hepatospenomegaly Assessment /Plan Problems (1) Small bowel obstruction Status: Acute Problem Text: 07/29: Currently being managed by general surgery, patient's diet advanced to clear liquids today by general surgery (2) A-fib Status: Chronic Problem Text: 07/28: Rate controlled. On Lovenox in anticipation of potential surgical correction. Eliquis on hold (3) DM2 (diabetes mellitus, type 2) Status: Chronic Response to Treatment: Stable Problem Text: 07/29: Blood sugars have ranged between 70 and 157 over the last 24 hours, continue sliding scale insulin 07/28: Basal insulin on hold due to NPO status. D5NS for IVF (4) Hypertension Status: Chronic Problem Specific Plan: Monitor Clinically Problem Text: 07/29: Stable, continue to monitor (5) Diastolic CHF Status: Chronic Response to Treatment: Stable Problem Text: 07/28: diuretics on hold due hypotension. Appears well compensated. (6) Spinal stenosis Status: Chronic Plan/VTE VTE Prophylaxis Ordered?: Yes (lovenox) Plan Patient was seen and examined by myself and his care was reviewed with the resident physician on service VS, I&O, 24H, Fishbone Vital Signs/I&O Vital Signs Date Time Temp Pulse Resp B/P (MAP) Pulse Ox O2 Delivery O2 Flow Rate FiO2 07/29/17 10:00 97.6 63 15 119/64 (82) 97 Nasal Cannula 2.0 I&O- Last 24 Hours up to 6 AM 07/30/17 06:00 Intake Total 0 ml Balance 0 ml Laboratory Data 24H LABS Laboratory Tests 2 07/28/17 17:08: Bedside Glucose (Misc Panel) 70L 07/28/17 23:52: Bedside Glucose (Misc Panel) 86 07/29/17 05:36: Bedside Glucose (Misc Panel) 98 07/29/17 06:21: Nucleated Red Blood Cells % (auto) 0.0, Anion Gap 7L, Glomerular Filtration Rate > 60.0, Blood Urea Nitrogen 18, Creatinine 1.18, Sodium Level 139, Potassium Level 4.0, Chloride Level 106, Carbon Dioxide Level 26, Calcium Level 8.8 07/29/17 12:16: Bedside Glucose (Misc Panel) 157H CBC/BMP Laboratory Tests 07/29/17 06:21 Red Blood Count 4.30, Mean Corpuscular Volume 85.8, Mean Corpuscular Hemoglobin 27.9, Mean Corpuscular Hemoglobin Concent 32.5, Red Cell Distribution Width 14.1 , Calcium Level 8.8 GME ATTESTATION GME ATTESTATION My faculty preceptor for this patient encounter was physically present during the encounter and was fully available. All aspects of the patient interview, examination, medical decision making process, and medical care plan development were reviewed and approved by the faculty preceptor. The faculty preceptor is aware and concurs with the plan as stated in the body of this note and will attest to such by his/her cosignature. JOANNE YARBROUGH DO Jul 29, 2017 13:51 Jarrett Gallegos M.D. Jul 29, 2017 16:46
[2017-07-29] MEDS: ONDANSETRON 4MG/2ML VIAL (J2405) IV PRN (17:19)
--- NOTE | 2017-07-29 20:55 | IPN ---
DATE: 07/29/2017 The patient was admitted two days ago with a bowel obstruction felt to be related to his known recurrent ventral incisional hernia. There was also some concern that this might partially represent an ileus from a chronic urinary tract infection. He was started on antibiotics and his hernia was apparently manually reduced yesterday. The patient denies any pain today. He has had no further nausea or vomiting. He has had several bowel movements recorded. Vital signs show him to be afebrile for the last 24 hours with a pulse ranging between 46- 78. His blood pressure is fine and his oxygen saturations are good. Intake and output shows 2000 in and 2300 out on the . PHYSICAL EXAMINATION: The patient is lying quietly in the hospital bed watching television. He appears comfortable. He is alert and oriented. Skin: Is warm and dry. Physical examination is limited to the abdomen. He has a suprapubic catheter exiting the lower mid abdomen. He has some significant scarring evident. The abdomen is obese and soft. There is a suggestion of a hernia in the right lateral lower quadrant, but this is soft and without apparent tenderness currently. There is no tympany to percussion. LABORATORY DATA: Laboratory studies today his white count is 5.5 with a hemoglobin 12, hematocrit 37 and platelet count of 202,000. Chemistry profile shows normal electrolytes with BUN of 18, creatinine of 1.18 and a glucose of 121. IMAGING: He has had no further imaging studies. IMPRESSION: The patient appears to be resolving his intestinal obstruction. He appears comfortable currently with no recurrence of nausea or vomiting. The abdomen is soft. PLAN: The patient will be started on unlimited clear liquids. If he tolerates these well, We will saline lock his IV and advance him to full liquids. I will cut his IV rate back now from 125 to 50 mL hour. MTDD
[2017-07-29 22:00] VITALS: BP 157/86
[2017-07-30] MEDS: HumaLOG INSULIN (NovoLOG) PER UNIT SC SCH ×4 (00:25→16:53)
[2017-07-30] MEDS: CIPROFLOXACIN 400 MG in APPROPRIATE DILUENT 1 EA IV SCH (01:50)
[2017-07-30 05:51] LABS: MEAN CORPUSCULAR HGB CONC 33.1 g/dl (32.0-36.5); MEAN CORPUSCULAR VOLUME 84.7 fl (80.0-96.0); PLATELET COUNT, AUTOMATED 216 10^3/uL (150-450); WHITE BLOOD COUNT 6.7 10^3/uL (4.0-10.0)
[2017-07-30 06:00] VITALS: BP 146/77
[2017-07-30 06:13] LABS: ANION GAP 7 MEQ/L (8-16); BLOOD UREA NITROGEN 13 MG/DL (7-18); CALCIUM LEVEL 9.2 MG/DL (8.8-10.2); CARBON DIOXIDE LEVEL 25 MEQ/L (21-32); CHLORIDE LEVEL 107 MEQ/L (98-107); GLOMERULAR FILTRATION RATE > 60.0 (>42); GLUCOSE, FASTING 154 MG/DL (83-110); POTASSIUM SERUM 3.9 MEQ/L (3.5-5.1); SODIUM LEVEL 139 MEQ/L (136-145)
[2017-07-30] MEDS: metroNIDAZOLE 500 MG in APPROPRIATE DILUENT 1 EA IV SCH (06:14)
[2017-07-30] MEDS: ONDANSETRON 4MG/2ML VIAL (J2405) IV PRN (08:23)
[2017-07-30] MEDS: CARVedilol 3.125 MG TAB PO SCH ×2 (08:23→21:22)
[2017-07-30] MEDS: BACLOFEN 10 MG TAB PO SCH ×3 (08:23→21:21)
[2017-07-30] MEDS: DOCUSATE SODIUM 100 MG CAP PO SCH ×2 (08:23→21:21)
[2017-07-30] MEDS: ENOXAPARIN 100MG/1ML SYRINGE (J1650) SC SCH ×2 (08:24→21:21)
[2017-07-30] MEDS: BISACODYL 10 MG SUPP PR SCH ×2 (08:24→21:00)
[2017-07-30] MEDS: PANTOPRAZOLE 40MG INJ (PROTONIX) (C9113) IV SCH (08:24)
[2017-07-30 09:08] VITALS: BP 147/64
[2017-07-30] MEDS: METOCLOPRAMIDE INJ 10MG/2ML VIAL (J2765) IV PRN (09:41)
[2017-07-30 14:00] VITALS: BP 140/96
--- NOTE | 2017-07-30 14:25 | IPNPDOC ---
Subjective Date Seen The patient was seen on 07/30/17. Subjective Chief Complaint/HPI The patient is a 71-year-old male admitted with a reason for visit of Small Bowel Obstruction. General: Denies: Chills Constitutional: Denies: Chills, Fever Eyes: Denies: Pain, Vision change ENT: Denies: Head Aches Skin: Denies: Rash Pulmonary: Denies: Dyspnea Cardiovascular: Denies: Chest Pain Gastrointestinal: Denies: Nausea, Vomiting Genitourinary: Denies: Dysuria Hematologic: Denies: Bruising Objective Physical Examination General Exam: Positive: Alert, No Acute Distress Chest Exam: Positive: Clear to auscultation, Normal air movement, Negative: Rales, Rhonchi, Wheezing Heart Exam: Positive: Rate Normal, Regular Rhythm, Normal S1, Normal S2, Negative: Gallops, Murmurs, Rubs Abdomen Exam: Positive: Normal bowel sounds, Soft, Tenderness (diffuse tenderness to palpation), Negative: Hepatospenomegaly Assessment /Plan Problems (1) Recurrent UTI Status: Chronic Problem Text: recurrent symptomatic UTI on cipro/metro 07/27-07/30 AM (for SBO) 07/30 no CX done this admission yet, slight confusion today (? pain, dehydration , abx)-plan CX if increased WBC/fever/increased MS change 07/05 UCX E. faecalis 05/18 P. aeruginosa (recurrent, sens to levo) (2) Small bowel obstruction Status: Acute Problem Text: 07/30 poor po given nausea/lower abdominal pain; therefore, restarted D5 1/2NS 20 KCl at 50/H 07/29: advanced to clear liquids today by general surgery 07/27 CT AP: Impression: High-grade small bowel obstruction secondary to ventral hernia. (3) A-fib Status: Chronic Problem Text: Rate controlled. On Lovenox 1 mg/kg/BID in anticipation of possible surgical correction. Eliquis on hold (4) DM2 (diabetes mellitus, type 2) Status: Chronic Response to Treatment: Stable Problem Text: 07/29: Blood sugars have ranged between 70 and 157 over the last 24 hours, continue sliding scale insulin 07/28: Basal insulin on hold due to NPO status. D5NS for IVF (5) Hypertension Status: Chronic Problem Specific Plan: Monitor Clinically Problem Text: 07/29: Stable, continue to monitor (6) Diastolic CHF Status: Chronic Response to Treatment: Stable Problem Text: 07/28: diuretics on hold due hypotension. Appears well compensated. Plan/VTE VTE Prophylaxis Ordered?: Yes (lovenox) VS, I&O, 24H, Fishbone Vital Signs/I&O Vital Signs Date Time Temp Pulse Resp B/P (MAP) Pulse Ox O2 Delivery O2 Flow Rate FiO2 07/30/17 09:08 98.7 58 16 147/64 (91) 95 Room Air 07/30/17 08:00 2.0 Laboratory Data 24H LABS Laboratory Tests 2 07/29/17 16:49: Bedside Glucose (Misc Panel) 249H 07/29/17 20:43: Bedside Glucose (Misc Panel) 176H 07/30/17 00:11: Bedside Glucose (Misc Panel) 169H 07/30/17 05:22: Anion Gap 7L, Glomerular Filtration Rate > 60.0, Blood Urea Nitrogen 13, Creatinine 1.10, Sodium Level 139, Potassium Level 3.9, Chloride Level 107, Carbon Dioxide Level 25, Calcium Level 9.2 07/30/17 05:23: Nucleated Red Blood Cells % (auto) 0.0 CBC/BMP Laboratory Tests 07/30/17 05:22 Calcium Level 9.2 07/30/17 05:23 Red Blood Count 4.39, Mean Corpuscular Volume 84.7, Mean Corpuscular Hemoglobin 28.0, Mean Corpuscular Hemoglobin Concent 33.1, Red Cell Distribution Width 14.0 Jem Goff M.D. Jul 30, 2017 14:25
[2017-07-30] MEDS: KCL 20MEQ IN 0.45NS 1000ML 1,000 ML IV SCH (15:59)
--- NOTE | 2017-07-30 18:53 | IPN ---
DATE: 07/30/2017 The patient was admitted with evidence for an intestinal obstruction associated probably with a right lower quadrant recurrent incisional hernia. His hernia has remained soft and largely reduced when I saw him yesterday and today. He did have some dry heaves earlier today but is back to drinking some liquids this evening without any difficulty. He is not having any pain. Vital signs show that he is afebrile. His pulse today has ranged between 58-85. His blood pressure is good with systolic pressure in the 140s. Intake and output shows 1500 in yesterday with 1300 out. Because of his nausea and dry heaves earlier in the day, Dr. Goff placed him back on some IV fluid at 50 mL/hour. PHYSICAL EXAMINATION: The patient is alert and oriented. He is pleasant and conversant. He does not appear uncomfortable currently. Skin is warm and dry. Abdomen is nondistended. He is soft. The area of his hernia is soft and without significant tenderness. Laboratory studies this morning showed a white count of 6.7 with a hemoglobin of 12, hematocrit of 37 and platelet count of 216,000. Chemistry profile showed a sodium 139, potassium 3.9, chloride 107, CO2 of 25, BUN of 13 and a creatinine of 1.1 with a glucose of 154. Fingerstick blood sugars have ranged between 107 and 249 over the last 24 hours. He has had no repeat imaging. IMPRESSION: Resolving small bowel obstruction. He had some nausea earlier in the day but this seems to have resolved and he is taking some liquids again. His abdomen is soft, nondistended and nontender. PLAN: I will continue him on the IV fluid that Dr. Goff started for now. He will take the liquids as able at this point and we will monitor his tolerance and his hernia. I discontinued his antibiotics earlier in the day as he has had no evidence for an infection during his stay and I thought it best just to stop these. We will hope to see his diet improve over the next couple of days so that he could be discharged home. ERIK
[2017-07-30] MEDS: ACETAMINOPHEN TAB 650MG DOSE (2X325MG) PO PRN (21:21)
[2017-07-30 22:00] VITALS: BP 160/71
[2017-07-31] MEDS: ACETAMINOPHEN TAB 650MG DOSE (2X325MG) PO PRN ×3 (04:53→21:26)
[2017-07-31] MEDS: HumaLOG INSULIN (NovoLOG) PER UNIT SC SCH ×5 (05:50→23:39)
[2017-07-31 06:00] VITALS: BP 170/68
[2017-07-31 07:15] LABS: ANION GAP 9 MEQ/L (8-16); BLOOD UREA NITROGEN 11 MG/DL (7-18); CALCIUM LEVEL 8.9 MG/DL (8.8-10.2); CARBON DIOXIDE LEVEL 23 MEQ/L (21-32); CHLORIDE LEVEL 102 MEQ/L (98-107); CREATININE FOR GFR 1.12 MG/DL (0.70-1.30); GLOMERULAR FILTRATION RATE > 60.0 (>42); GLUCOSE, FASTING 160 MG/DL (83-110); SODIUM LEVEL 134 MEQ/L (136-145)
[2017-07-31] MEDS: ENOXAPARIN 100MG/1ML SYRINGE (J1650) SC SCH (09:22)
[2017-07-31] MEDS: BISACODYL 10 MG SUPP PR SCH ×2 (09:22→21:00)
[2017-07-31] MEDS: ONDANSETRON 4MG/2ML VIAL (J2405) IV PRN ×2 (09:22→19:02)
[2017-07-31] MEDS: BACLOFEN 10 MG TAB PO SCH ×3 (09:23→21:26)
[2017-07-31] MEDS: DOCUSATE SODIUM 100 MG CAP PO SCH ×2 (09:23→21:26)
[2017-07-31] MEDS: CARVedilol 3.125 MG TAB PO SCH ×2 (09:23→21:26)
[2017-07-31] MEDS: PANTOPRAZOLE 40MG INJ (PROTONIX) (C9113) IV SCH (09:23)
[2017-07-31 10:00] VITALS: BP 174/86
[2017-07-31] MEDS: KCL 20MEQ IN 0.45NS 1000ML 1,000 ML IV SCH (10:30)
[2017-07-31 14:00] VITALS: BP 146/73
--- NOTE | 2017-07-31 18:31 | IPNPDOC ---
Subjective Date Seen The patient was seen on 07/31/17. Subjective Chief Complaint/HPI The patient is a 71-year-old male admitted with a reason for visit of Small Bowel Obstruction. Constitutional: Denies: Chills, Fever Eyes: Denies: Pain ENT: Denies: Head Aches Skin: Denies: Rash Pulmonary: Denies: Dyspnea Cardiovascular: Denies: Chest Pain Gastrointestinal: Reports: Abdominal Pain (mild lower quadrant s guarding), Denies: Nausea, Vomiting Genitourinary: Denies: Dysuria Objective Physical Examination General Exam: Positive: Alert, No Acute Distress Chest Exam: Positive: Clear to auscultation, Normal air movement, Negative: Rales, Rhonchi, Wheezing Heart Exam: Positive: Rate Normal, Regular Rhythm, Normal S1, Normal S2, Negative: Gallops, Murmurs, Rubs Abdomen Exam: Positive: Normal bowel sounds, Soft, Tenderness (diffuse tenderness to palpation), Negative: Hepatospenomegaly Assessment /Plan Problems (1) Recurrent UTI Status: Chronic Problem Text: recurrent symptomatic UTI on cipro/metro 07/27-07/30 AM (for SBO) 07/31 afebrile, stable MS-no obvious s/s infection 07/30 no CX done this admission yet, slight confusion today (? pain, dehydration , abx)-plan CX if increased WBC/fever/increased MS change 07/05 UCX E. faecalis 05/18 P. aeruginosa (recurrent, sens to levo) (2) Small bowel obstruction Status: Acute Problem Text: 07/30 poor po given nausea/lower abdominal pain; therefore, restarted D5 1/2NS 20 KCl at 50/H 07/29: advanced to clear liquids today by general surgery 07/27 CT AP: Impression: High-grade small bowel obstruction secondary to ventral hernia. (3) A-fib Status: Chronic Problem Text: Rate controlled. 07/[address] Lyons-strongly favor non-surgical; therefore, restarted DOAC On Lovenox 1 mg/kg/BID in anticipation of possible surgical correction. Eliquis on hold (4) DM2 (diabetes mellitus, type 2) Status: Chronic Response to Treatment: Stable Problem Text: 07/29: Blood sugars have ranged between 70 and 157 over the last 24 hours, continue sliding scale insulin 07/28: Basal insulin on hold due to NPO status. D5NS for IVF (5) Hypertension Status: Chronic Problem Specific Plan: Monitor Clinically Problem Text: 07/29: Stable, continue to monitor (6) Diastolic CHF Status: Chronic Response to Treatment: Stable Problem Text: 07/28: diuretics on hold due hypotension. Appears well compensated. Plan/VTE VTE Prophylaxis Ordered?: Yes (lovenox) VS, I&O, 24H, Fishbone Vital Signs/I&O Vital Signs Date Time Temp Pulse Resp B/P (MAP) Pulse Ox O2 Delivery O2 Flow Rate FiO2 07/31/17 14:00 97.4 82 16 146/73 (97) 96 Room Air 07/30/17 22:40 2.0 Laboratory Data 24H LABS Laboratory Tests 2 07/31/17 06:40: Anion Gap 9, Glomerular Filtration Rate > 60.0, Blood Urea Nitrogen 11, Creatinine 1.12, Sodium Level 134L, Potassium Level 4.0, Chloride Level 102, Carbon Dioxide Level 23, Calcium Level 8.9 07/31/17 11:31: Bedside Glucose (Misc Panel) 145H 07/31/17 16:26: Bedside Glucose (Misc Panel) 172H CBC/BMP Laboratory Tests 07/31/17 06:40 Calcium Level 8.9 Jem Goff M.D. Jul 31, 2017 18:31
[2017-07-31] MEDS: APIXABAN 5 MG TAB (ELIQUIS) PO SCH (21:26)
[2017-07-31 22:00] VITALS: BP 137/72
--- NOTE | 2017-08-01 01:12 | IPN ---
DATE OF SERVICE: 07/31/2017 HISTORY: The patient is a 71-year-old patient of Dr. Arechiga admitted with a bowel obstruction felt to be secondary to a large recurrent ventral incisional hernia in the right lower quadrant. He reported some nausea this morning and then again this evening, but was able to take liquids fairly well during the course of the day with no emesis. He reports having had a suppository earlier today with no result, but thinks he has had a small amount of flatus, but not much. VITAL SIGNS: He is afebrile with a pulse in the 70s to 80s and an acceptable blood pressure. Intake and output yesterday was 1800 in, 1325 out with one bowel movement yesterday. His urine output has been 2000 today. PHYSICAL EXAMINATION: The patient is lying quietly and appears comfortable in bed. He is alert and oriented. Skin is warm and dry. Abdomen is flat. He has normoactive bowel sounds. The abdomen is soft and without tenderness and his right lower quadrant hernia appears to be completely reduced at present. LABORATORY DATA: The patient had a chemistry profile today with sodium 134, potassium 4.0, chloride 102, CO2 of 23, BUN of 11, creatinine 1.1, and a glucose of 160. IMPRESSION: The patient appears comfortable and has no pain at present with some nausea earlier today, but no vomiting. His abdomen seems benign. I suspect that his obstruction is related to his hernia and seems to be resolved for now. PLAN: The patient will be continued on his current clear liquid diet today. I spoke with Dr. Goff earlier today and we agreed to place the patient back on his Eliquis and stop the Lovenox. Dr. Arechiga can determine in the morning if it is time to advance his diet.
[2017-08-01] MEDS: ONDANSETRON 4MG/2ML VIAL (J2405) IV PRN ×2 (05:42→12:57)
[2017-08-01] MEDS: KCL 20MEQ IN 0.45NS 1000ML 1,000 ML IV SCH (05:45)
[2017-08-01 06:00] VITALS: BP 164/72
[2017-08-01] MEDS: HumaLOG INSULIN (NovoLOG) PER UNIT SC SCH ×3 (06:00→18:05)
[2017-08-01 07:06] LABS: MEAN CORPUSCULAR HEMOGLOBIN 27.8 pg (27.0-33.0); MEAN CORPUSCULAR HGB CONC 33.3 g/dl (32.0-36.5); MEAN CORPUSCULAR VOLUME 83.3 fl (80.0-96.0); PLATELET COUNT, AUTOMATED 214 10^3/uL (150-450); RED CELL DISTRIBUTION WIDTH 13.8 % (11.5-14.5)
[2017-08-01 07:27] LABS: ANION GAP 11 MEQ/L (8-16); BLOOD UREA NITROGEN 10 MG/DL (7-18); CARBON DIOXIDE LEVEL 23 MEQ/L (21-32); CHLORIDE LEVEL 99 MEQ/L (98-107); CREATININE FOR GFR 0.96 MG/DL (0.70-1.30); GLOMERULAR FILTRATION RATE > 60.0 (>42); GLUCOSE, FASTING 158 MG/DL (83-110); POTASSIUM SERUM 4.1 MEQ/L (3.5-5.1); SODIUM LEVEL 133 MEQ/L (136-145)
[2017-08-01] MEDS: DOCUSATE SODIUM 100 MG CAP PO SCH ×2 (08:03→21:43)
[2017-08-01] MEDS: PANTOPRAZOLE 40MG INJ (PROTONIX) (C9113) IV SCH (08:03)
[2017-08-01] MEDS: BACLOFEN 10 MG TAB PO SCH ×3 (08:03→21:43)
[2017-08-01] MEDS: APIXABAN 5 MG TAB (ELIQUIS) PO SCH ×2 (08:03→21:43)
[2017-08-01] MEDS: CARVedilol 3.125 MG TAB PO SCH ×2 (08:03→21:43)
[2017-08-01] MEDS: BISACODYL 10 MG SUPP PR SCH ×2 (08:04→21:43)
--- NOTE | 2017-08-01 08:41 | IPNPDOC ---
Subjective Date Seen The patient was seen on 08/01/17. Subjective Chief Complaint/HPI The patient is a 71-year-old male admitted with a reason for visit of Small Bowel Obstruction. Events since last encounter Pt this morning c/o nausea without vomiting. He tolerated some clears yest, but hasn't tried this morning due to nausea. He states he cont to have abd pain , about the same as on admission. He has not had any gas today or since sometime yest. He tells me he cannot remember his last BM, although nurses have a BM documented daily. General: Reports: Fatigue Constitutional: Denies: Chills, Fever ENT: Denies: Head Aches Pulmonary: Denies: Dyspnea, Cough Cardiovascular: Denies: Chest Pain, Palpitations Gastrointestinal: Reports: Nausea, Abdominal Pain, Denies: Vomiting, Diarrhea Neurological: Reports: Weakness Psych: Reports: Mood Normal Objective Physical Examination General Exam: Positive: Alert, Mild Distress ENT Exam: Positive: Mucous membr. moist/pink Chest Exam: Positive: Clear to auscultation, Normal air movement, Diminished, Negative: Rales, Rhonchi, Wheezing Heart Exam: Positive: Rate Normal, Regular Rhythm, Normal S1, Normal S2, Negative: Gallops, Murmurs, Rubs Abdomen Exam: Positive: Normal bowel sounds, Soft, Tenderness (diffuse mild tenderness to palpation), Negative: Hepatospenomegaly Extremity Exam: Negative: Edema Psych Exam: Positive: Mental status NL, Mood NL, Oriented x 3 Assessment /Plan Problems (1) Small bowel obstruction Status: Acute Response to Treatment: Stable, Improving Discussed With: Patient Problem Specific Plan: Monitor Clinically, Repeat Labs Problem Text: 08/01 Cont with D5 1/2 NS 20KCl for now, cont to have limited PO intake d/t nausea. GS following. On Zofran and Reglan, will add phenergan as needed. 07/30 poor po given nausea/lower abdominal pain; therefore, restarted D5 1/2NS 20 KCl at 50/H 07/29: advanced to clear liquids today by general surgery 07/27 CT AP: Impression: High-grade small bowel obstruction secondary to ventral hernia. (2) Recurrent UTI Status: Chronic Problem Text: recurrent symptomatic UTI on cipro/metro 07/27-07/30 AM (for SBO) 07/31 afebrile, stable MS-no obvious s/s infection 07/30 no CX done this admission yet, slight confusion today (? pain, dehydration , abx)-plan CX if increased WBC/fever/increased MS change 07/05 UCX E. faecalis 05/18 P. aeruginosa (recurrent, sens to levo) (3) A-fib Status: Chronic Problem Text: 08/01 Rate controlled, Eliquis restarted 07/31. 07/[address] Lyons-strongly favor non-surgical; therefore, restarted DOAC On Lovenox 1 mg/kg/BID in anticipation of possible surgical correction. Eliquis on hold (4) DM2 (diabetes mellitus, type 2) Status: Chronic Response to Treatment: Stable Problem Text: 07/29: Blood sugars have ranged between 70 and 157 over the last 24 hours, continue sliding scale insulin 07/28: Basal insulin on hold due to NPO status. D5NS for IVF (5) Hypertension Status: Chronic Problem Specific Plan: Monitor Clinically Problem Text: 07/29: Stable, continue to monitor (6) Diastolic CHF Status: Chronic Response to Treatment: Stable Problem Text: 08/01 - appears compensated. 07/28: diuretics on hold due hypotension. Appears well compensated. Plan/VTE VTE Prophylaxis Ordered?: Yes (lovenox) VS, I&O, 24H, Fishbone Vital Signs/I&O Vital Signs Date Time Temp Pulse Resp B/P (MAP) Pulse Ox O2 Delivery O2 Flow Rate FiO2 08/01/17 08:03 72 164/72 08/01/17 06:00 97.8 18 94 Room Air 07/31/17 16:00 2.0 I&O- Last 24 Hours up to 6 AM 08/02/17 06:00 Intake Total 600 ml Balance 600 ml Laboratory Data 24H LABS Laboratory Tests 2 07/31/17 11:31: Bedside Glucose (Misc Panel) 145H 07/31/17 16:26: Bedside Glucose (Misc Panel) 172H 08/01/17 06:00: Bedside Glucose (Misc Panel) 138H 08/01/17 06:21: Nucleated Red Blood Cells % (auto) 0.0, Anion Gap 11, Glomerular Filtration Rate > 60.0, Blood Urea Nitrogen 10, Creatinine 0.96, Sodium Level 133L, Potassium Level 4.1, Chloride Level 99, Carbon Dioxide Level 23, Calcium Level 9.0 CBC/BMP Laboratory Tests 08/01/17 06:21 Red Blood Count 4.72, Mean Corpuscular Volume 83.3, Mean Corpuscular Hemoglobin 27.8, Mean Corpuscular Hemoglobin Concent 33.3, Red Cell Distribution Width 13.8 , Calcium Level 9.0 Attending Note Attending Note Since Jack was in earlier, he says he has had a BM, and able to get down about 1/2 of his clear liquid tray. Nausea is better. Still slightly tender across mid abdomen, but BS active. Seems to be making some progress. JACK CAMARGO PA-C Aug 01, 2017 08:41 Lane Mina MD Aug 01, 2017 10:23
[2017-08-01 11:08] VITALS: BP 138/80
[2017-08-01 11:09] VITALS: BP 138/80
[2017-08-01] MEDS: ACETAMINOPHEN TAB 650MG DOSE (2X325MG) PO PRN ×2 (14:55→21:42)
[2017-08-01 18:00] VITALS: BP 135/90
[2017-08-01 22:00] VITALS: BP 178/88
[2017-08-02] MEDS: HumaLOG INSULIN (NovoLOG) PER UNIT SC SCH ×2 (00:27→06:16)
[2017-08-02 06:00] VITALS: BP 178/81
[2017-08-02 07:44] LABS: MEAN CORPUSCULAR HEMOGLOBIN 27.8 pg (27.0-33.0); MEAN CORPUSCULAR HGB CONC 33.3 g/dl (32.0-36.5); MEAN CORPUSCULAR VOLUME 83.5 fl (80.0-96.0); PLATELET COUNT, AUTOMATED 204 10^3/uL (150-450); RED CELL DISTRIBUTION WIDTH 14.1 % (11.5-14.5)
[2017-08-02 08:06] LABS: ANION GAP 11 MEQ/L (8-16); BLOOD UREA NITROGEN 12 MG/DL (7-18); CALCIUM LEVEL 8.9 MG/DL (8.8-10.2); CARBON DIOXIDE LEVEL 24 MEQ/L (21-32); CHLORIDE LEVEL 99 MEQ/L (98-107); CREATININE FOR GFR 0.97 MG/DL (0.70-1.30); GLOMERULAR FILTRATION RATE > 60.0 (>42); GLUCOSE, FASTING 159 MG/DL (83-110); POTASSIUM SERUM 4.6 MEQ/L (3.5-5.1); SODIUM LEVEL 134 MEQ/L (136-145)
[2017-08-02] MEDS ORDERED: BISA10SU PR (08:51)
[2017-08-02 09:49] VITALS: BP 178/81
[2017-08-02] MEDS: DOCUSATE SODIUM 100 MG CAP PO SCH (09:49)
[2017-08-02] MEDS: PANTOPRAZOLE 40MG INJ (PROTONIX) (C9113) IV SCH ×2 (09:49→10:14)
[2017-08-02] MEDS: APIXABAN 5 MG TAB (ELIQUIS) PO SCH (09:49)
[2017-08-02] MEDS: BACLOFEN 10 MG TAB PO SCH (09:49)
[2017-08-02] MEDS: BISACODYL 10 MG SUPP PR SCH ×2 (09:49→11:25)
[2017-08-02] MEDS: CARVedilol 3.125 MG TAB PO SCH (09:49)
== END 2017-08-02 11:50 | disposition home health service (06) | DRG 389 ==
LOC: M ED 08:09 → M ED INP 12:26 → M MS5PR 13:40
PROVIDERS: ADMIT Surgery; ATTEND Surgery
DX: K56.609 Unspecified intestinal obstruction, unspecified as to partial versus complete obstruction (principal); G82.20 Paraplegia, unspecified; I50.32 Chronic diastolic (congestive) heart failure; E87.1 Hypo-osmolality and hyponatremia; K43.0 Incisional hernia with obstruction, without gangrene; I11.0 Hypertensive heart disease with heart failure; G47.33 Obstructive sleep apnea (adult) (pediatric); E11.40 Type 2 diabetes mellitus with diabetic neuropathy, unspecified; K59.09 Other constipation; E78.5 Hyperlipidemia, unspecified; I48.91 Unspecified atrial fibrillation; Z79.01 Long term (current) use of anticoagulants; Z79.4 Long term (current) use of insulin; Z79.899 Other long term (current) drug therapy; Z99.89 Dependence on other enabling machines and devices; Z96.652 Presence of left artificial knee joint; Z96.641 Presence of right artificial hip joint; Z96.0 Presence of urogenital implants; Z88.8 Allergy status to other drugs, medicaments and biological substances; Z88.5 Allergy status to narcotic agent; Z87.440 Personal history of urinary (tract) infections

== ENCOUNTER → 2017-09-06 | Outpatient (REF) | payer MEDICARE, MEDICAID | LOC: M LAB REF 12:48 | DX: L03.039 Cellulitis of unspecified toe (principal) | CPT/HCPCS: 87186 ==

== ENCOUNTER 2017-10-04 11:19 | Inpatient (IN) | payer MEDICARE, MEDICAID ==
[2017-10-04] MEDS: NS 1,000 ML IV ×3 (12:25→20:52)
[2017-10-04] MEDS: VANCOMYCIN HCL 1,000 MG, VIAL MATE ADAPTER 1 EACH in D5W 250 ML IV ×2 (12:25→14:59)
[2017-10-04 12:44] LABS: BASO % 0.5 % (0.0-1.0); EOS # 0.2 10^3/uL (0.0-0.50); HEMATOCRIT 43.7 % (42.0-52.0); HEMOGLOBIN 14.2 g/dl (14.0-18.0); IMMATURE GRANULOCYTE % 0.5 % (0-0); LYMPH # 2.3 10^3/uL (1.5-4.5); LYMPH % 28.3 % (24.0-44.0); MEAN CORPUSCULAR HEMOGLOBIN 27.9 pg (27.0-33.0); MEAN CORPUSCULAR HGB CONC 32.5 g/dl (32.0-36.5); MEAN CORPUSCULAR VOLUME 85.9 fl (80.0-96.0); MONO # 0.6 10^3/uL (0.0-0.8); MONO % 7.2 % (0.0-5.0); NEUTROPHILS # 4.9 10^3/uL (1.8-7.7); NEUTROPHILS % 61.5 % (36.0-66.0); PLATELET COUNT, AUTOMATED 260 10^3/uL (150-450); RED BLOOD COUNT 5.09 10^6/uL (4.30-6.10); RED CELL DISTRIBUTION WIDTH 13.9 % (11.5-14.5); WHITE BLOOD COUNT 7.9 10^3/uL (4.0-10.0)
[2017-10-04] MEDS ORDERED: ACETAMINOPHEN TAB 650MG DOSE (2X325MG) PO (13:00)
[2017-10-04] MEDS ORDERED: ONDANSETRON 4MG/2ML VIAL (J2405) IV (13:00)
[2017-10-04 13:09] LABS: LACTIC ACID SEPSIS PROTOCOL 0.8 MMOL/L (0.4-2.0)
[2017-10-04 13:12] LABS: ERYTHROCYTE SEDIMENTATION RATE 11 mm/hr (0-20)
[2017-10-04] MEDS ORDERED: GLUCAGON FOR INJ 1 MG VIAL (J1610) SC (13:15)
[2017-10-04] MEDS ORDERED: GLUCOSE 4 GM CHEW TABLET PO (13:15)
[2017-10-04 13:17] LABS: ALBUMIN 3.5 GM/DL (3.2-5.2); ALBUMIN/GLOBULIN RATIO 0.69 (1.00-1.93); ALKALINE PHOSPHATASE 95 U/L (45-117); ALT/SGPT 42 U/L (12-78); ANION GAP 5 MEQ/L (8-16); AST/SGOT 31 U/L (7-37); BILIRUBIN,DIRECT 0.1 MG/DL (0.0-0.2); BILIRUBIN,TOTAL 0.4 MG/DL (0.2-1.0); BLOOD UREA NITROGEN 21 MG/DL (7-18); C REACTIVE PROTEIN QUANTITATIV 0.82 MG/DL (0.00-0.30); CARBON DIOXIDE LEVEL 31 MEQ/L (21-32); CHLORIDE LEVEL 101 MEQ/L (98-107); GLOMERULAR FILTRATION RATE 57.9 (>42); GLUCOSE, FASTING 48 MG/DL (70-100); POTASSIUM SERUM 4.2 MEQ/L (3.5-5.1); SODIUM LEVEL 137 MEQ/L (136-145); TOTAL PROTEIN 8.6 GM/DL (6.4-8.2)
[2017-10-04] MEDS ORDERED: NYSTATIN 100,000 UNITS/GM TOPICAL PWD 15 GM TOP (15:15)
[2017-10-04] MEDS ORDERED: CLOTRIMAZOLE 1% TOPICAL CREAM 30GM TOP (15:15)
[2017-10-04] MEDS: GABAPENTIN 300 MG CAP PO ×2 (15:49→20:50)
[2017-10-04] MEDS: BACLOFEN 10 MG TAB PO ×2 (15:50→20:50)
[2017-10-04 16:59] LABS: BEDSIDE GLUCOSE 217 MG/DL (83-110)
[2017-10-04] MEDS: HumaLOG INSULIN (NovoLOG) PER UNIT SC ×2 (17:15→20:51)
[2017-10-04] MEDS: LORATADINE 10 MG TAB PO (20:50)
[2017-10-04] MEDS: CARVedilol 3.125 MG TAB PO (20:50)
[2017-10-04] MEDS: SOLIFENACIN 5 MG TAB PO (20:50)
[2017-10-04] MEDS: MAGNESIUM OXIDE 400 MG TAB (MAG-OX) PO (20:51)
[2017-10-04] MEDS: LEVEMIR (INSULIN DETEMIR) 1 UNITS/0.01ML SC (20:52)
[2017-10-04 21:02] LABS: BEDSIDE GLUCOSE 143 MG/DL (83-110)
[2017-10-05] MEDS: NS 1,000 ML IV ×5 (02:33→23:15)
[2017-10-05 06:09] LABS: HEMATOCRIT 37.4 % (42.0-52.0); MEAN CORPUSCULAR HEMOGLOBIN 27.9 pg (27.0-33.0); MEAN CORPUSCULAR HGB CONC 32.6 g/dl (32.0-36.5); MEAN CORPUSCULAR VOLUME 85.6 fl (80.0-96.0); PLATELET COUNT, AUTOMATED 238 10^3/uL (150-450); RED BLOOD COUNT 4.37 10^6/uL (4.30-6.10); RED CELL DISTRIBUTION WIDTH 13.8 % (11.5-14.5); WHITE BLOOD COUNT 9.3 10^3/uL (4.0-10.0)
[2017-10-05 06:22] LABS: HEMOGLOBIN 12.2 g/dl (14.0-18.0)
[2017-10-05 06:28] LABS: ANION GAP 5 MEQ/L (8-16); BLOOD UREA NITROGEN 23 MG/DL (7-18); CALCIUM LEVEL 8.9 MG/DL (8.8-10.2); CARBON DIOXIDE LEVEL 26 MEQ/L (21-32); CHLORIDE LEVEL 107 MEQ/L (98-107); CREATININE FOR GFR 1.28 MG/DL (0.70-1.30); GLUCOSE, FASTING 42 MG/DL (70-100); POTASSIUM SERUM 4.1 MEQ/L (3.5-5.1); SODIUM LEVEL 138 MEQ/L (136-145)
[2017-10-05] MEDS: DEXTROSE 50% 50 ML SYRINGE IV (06:42)
[2017-10-05 07:14] LABS: BEDSIDE GLUCOSE 112 MG/DL (83-110)
[2017-10-05] MEDS: HumaLOG INSULIN (NovoLOG) PER UNIT SC ×4 (07:49→21:00)
[2017-10-05] MEDS: LEVEMIR (INSULIN DETEMIR) 1 UNITS/0.01ML SC ×2 (07:50→21:35)
[2017-10-05] MEDS: VANCOMYCIN HCL 1,000 MG, VIAL MATE ADAPTER 1 EACH in D5W 250 ML IV (09:15)
[2017-10-05] MEDS: GABAPENTIN 300 MG CAP PO ×3 (09:16→21:33)
[2017-10-05] MEDS: BACLOFEN 10 MG TAB PO ×3 (09:16→21:33)
[2017-10-05] MEDS: SPIRONOLACTONE 12.5MG PER 1/2 TABLET PO (09:17)
[2017-10-05] MEDS: FENOFIBRATE 145 MG TAB (TRICOR) PO (09:17)
[2017-10-05] MEDS: MAGNESIUM OXIDE 400 MG TAB (MAG-OX) PO ×2 (09:17→21:33)
[2017-10-05] MEDS: FUROSEMIDE 20 MG TAB PO (09:21)
[2017-10-05] MEDS: CARVedilol 3.125 MG TAB PO ×2 (09:21→21:34)
[2017-10-05 11:39] LABS: BEDSIDE GLUCOSE 83 MG/DL (83-110)
[2017-10-05] MEDS ORDERED: fentaNYL 100 MCG/2 ML INJECTION (J3010) As Ordered (14:06)
[2017-10-05] MEDS ORDERED: MIDAZOLAM INJ 2 MG/2 ML VIAL (J2250) As Ordered (14:06)
[2017-10-05] MEDS ORDERED: LIDOCAINE 2% INJ 100 MG/5 ML SDV (FOR ANES.) As Ordered (14:08)
[2017-10-05] MEDS ORDERED: PROPOFOL 200 MG/20 ML VIAL As Ordered ×2 (14:08)
[2017-10-05] MEDS: NEOSPORIN GU IRRIG 20 ML VIAL As Ordered (14:09)
[2017-10-05] MEDS: BACITRACIN PWD 50,000 UNITS VIAL As Ordered (14:09)
[2017-10-05 15:15] LABS: BEDSIDE GLUCOSE 41 MG/DL (83-110)
[2017-10-05 15:33] LABS: BEDSIDE GLUCOSE 132 MG/DL (83-110)
[2017-10-05] MEDS ORDERED: DEXTROSE 50% 50 ML SYRINGE (15:39)
[2017-10-05] MEDS: LIDOCAINE 2% MDV 20 ML VIAL As Ordered (15:41)
[2017-10-05] MEDS: BUPIVACAINE HCL 0.5% 10 ML VIAL As Ordered (15:41)
[2017-10-05] MEDS: GENTAMICIN SULF INJ 80MG/2ML VIAL (J1580) As Ordered (17:00)
[2017-10-05 17:39] LABS: BEDSIDE GLUCOSE 99 MG/DL (83-110)
[2017-10-05] MEDS ORDERED: ONDANSETRON 4MG/2ML VIAL (J2405) IV (17:45)
[2017-10-05] MEDS ORDERED: ACETAMINOPHEN TAB 650MG DOSE (2X325MG) As Ordered (18:10)
[2017-10-05] MEDS: ACETAMINOPHEN TAB 650MG DOSE (2X325MG) PO (18:14)
[2017-10-05] MEDS: D5W/LR 1,000 ML IV (18:24)
[2017-10-05 18:39] LABS: BEDSIDE GLUCOSE 158 MG/DL (83-110)
[2017-10-05 21:01] LABS: BEDSIDE GLUCOSE 243 MG/DL (83-110)
[2017-10-05] MEDS: LORATADINE 10 MG TAB PO (21:33)
[2017-10-05] MEDS: SOLIFENACIN 5 MG TAB PO (21:33)
[2017-10-06] MEDS: VANCOMYCIN HCL 1,000 MG, VIAL MATE ADAPTER 1 EACH in D5W 250 ML IV ×2 (01:20→20:30)
[2017-10-06] MEDS: NS 1,000 ML IV (04:15)
[2017-10-06 05:57] LABS: HEMATOCRIT 35.4 % (42.0-52.0); HEMOGLOBIN 11.4 g/dl (14.0-18.0); MEAN CORPUSCULAR HEMOGLOBIN 27.9 pg (27.0-33.0); MEAN CORPUSCULAR HGB CONC 32.2 g/dl (32.0-36.5); MEAN CORPUSCULAR VOLUME 86.8 fl (80.0-96.0); PLATELET COUNT, AUTOMATED 193 10^3/uL (150-450); RED BLOOD COUNT 4.08 10^6/uL (4.30-6.10); RED CELL DISTRIBUTION WIDTH 14.1 % (11.5-14.5); WHITE BLOOD COUNT 5.9 10^3/uL (4.0-10.0)
[2017-10-06 06:18] LABS: ANION GAP 6 MEQ/L (8-16); BLOOD UREA NITROGEN 22 MG/DL (7-18); CALCIUM LEVEL 8.7 MG/DL (8.8-10.2); CARBON DIOXIDE LEVEL 25 MEQ/L (21-32); CHLORIDE LEVEL 107 MEQ/L (98-107); CREATININE FOR GFR 1.31 MG/DL (0.70-1.30); GLOMERULAR FILTRATION RATE 57.4 (>42); GLUCOSE, FASTING 128 MG/DL (70-100); POTASSIUM SERUM 4.2 MEQ/L (3.5-5.1); SODIUM LEVEL 138 MEQ/L (136-145)
[2017-10-06] MEDS: HumaLOG INSULIN (NovoLOG) PER UNIT SC ×4 (07:50→20:31)
[2017-10-06] MEDS: FENOFIBRATE 145 MG TAB (TRICOR) PO (09:33)
[2017-10-06] MEDS: MAGNESIUM OXIDE 400 MG TAB (MAG-OX) PO ×2 (09:33→20:32)
[2017-10-06] MEDS: GABAPENTIN 300 MG CAP PO ×3 (09:33→20:32)
[2017-10-06] MEDS: CARVedilol 3.125 MG TAB PO ×2 (09:33→20:35)
[2017-10-06] MEDS: SPIRONOLACTONE 12.5MG PER 1/2 TABLET PO (09:34)
[2017-10-06] MEDS: BACLOFEN 10 MG TAB PO ×3 (09:34→20:32)
[2017-10-06] MEDS: FUROSEMIDE 20 MG TAB PO (09:35)
[2017-10-06] MEDS: LEVEMIR (INSULIN DETEMIR) 1 UNITS/0.01ML SC ×2 (10:01→20:31)
[2017-10-06 11:56] LABS: BEDSIDE GLUCOSE 175 MG/DL (83-110)
[2017-10-06 17:10] LABS: BEDSIDE GLUCOSE 215 MG/DL (83-110)
[2017-10-06 19:51] LABS: VANCOMYCIN LEVEL TROUGH 18.2 UG/ML (10.0-20.0)
[2017-10-06] MEDS: SOLIFENACIN 5 MG TAB PO (20:31)
[2017-10-06] MEDS: LORATADINE 10 MG TAB PO (20:32)
[2017-10-06 20:39] LABS: BEDSIDE GLUCOSE 376 MG/DL (83-110)
[2017-10-07 06:43] LABS: HEMATOCRIT 37.1 % (42.0-52.0); HEMOGLOBIN 12.1 g/dl (14.0-18.0); MEAN CORPUSCULAR HEMOGLOBIN 28.2 pg (27.0-33.0); MEAN CORPUSCULAR HGB CONC 32.6 g/dl (32.0-36.5); MEAN CORPUSCULAR VOLUME 86.5 fl (80.0-96.0); PLATELET COUNT, AUTOMATED 209 10^3/uL (150-450); RED BLOOD COUNT 4.29 10^6/uL (4.30-6.10); WHITE BLOOD COUNT 8.7 10^3/uL (4.0-10.0)
[2017-10-07 06:59] LABS: ANION GAP 6 MEQ/L (8-16); BLOOD UREA NITROGEN 26 MG/DL (7-18); CARBON DIOXIDE LEVEL 26 MEQ/L (21-32); CHLORIDE LEVEL 106 MEQ/L (98-107); CREATININE FOR GFR 1.34 MG/DL (0.70-1.30); GLOMERULAR FILTRATION RATE 55.9 (>42); GLUCOSE, FASTING 156 MG/DL (70-100); POTASSIUM SERUM 4.4 MEQ/L (3.5-5.1); SODIUM LEVEL 138 MEQ/L (136-145)
[2017-10-07] MEDS: SPIRONOLACTONE 12.5MG PER 1/2 TABLET PO (07:53)
[2017-10-07] MEDS: BACLOFEN 10 MG TAB PO ×3 (07:53→20:39)
[2017-10-07] MEDS: GABAPENTIN 300 MG CAP PO ×3 (07:53→20:39)
[2017-10-07] MEDS: FENOFIBRATE 145 MG TAB (TRICOR) PO (07:53)
[2017-10-07] MEDS: MAGNESIUM OXIDE 400 MG TAB (MAG-OX) PO ×2 (07:53→20:39)
[2017-10-07] MEDS: CARVedilol 3.125 MG TAB PO ×2 (07:54→20:42)
[2017-10-07] MEDS: FUROSEMIDE 20 MG TAB PO (07:54)
[2017-10-07] MEDS: HumaLOG INSULIN (NovoLOG) PER UNIT SC ×4 (07:55→21:42)
[2017-10-07] MEDS: LEVEMIR (INSULIN DETEMIR) 1 UNITS/0.01ML SC ×2 (07:55→20:43)
[2017-10-07 11:53] LABS: BEDSIDE GLUCOSE 192 MG/DL (83-110)
[2017-10-07] MEDS: VANCOMYCIN HCL 1,000 MG, VIAL MATE ADAPTER 1 EACH in D5W 250 ML IV (15:00)
[2017-10-07] MEDS: LORATADINE 10 MG TAB PO (20:39)
[2017-10-07] MEDS: DOCUSATE SODIUM 100 MG CAP PO (20:39)
[2017-10-07] MEDS: SOLIFENACIN 5 MG TAB PO (20:39)
[2017-10-08 05:58] LABS: BEDSIDE GLUCOSE 232 MG/DL (83-110)
[2017-10-08 06:00] LABS: BEDSIDE GLUCOSE 281 MG/DL (83-110)
[2017-10-08 06:10] LABS: HEMATOCRIT 35.8 % (42.0-52.0); HEMOGLOBIN 11.8 g/dl (14.0-18.0); MEAN CORPUSCULAR HEMOGLOBIN 27.9 pg (27.0-33.0); MEAN CORPUSCULAR VOLUME 84.6 fl (80.0-96.0); PLATELET COUNT, AUTOMATED 216 10^3/uL (150-450); RED BLOOD COUNT 4.23 10^6/uL (4.30-6.10); RED CELL DISTRIBUTION WIDTH 13.7 % (11.5-14.5); WHITE BLOOD COUNT 9.9 10^3/uL (4.0-10.0)
[2017-10-08 06:29] LABS: ANION GAP 7 MEQ/L (8-16); BLOOD UREA NITROGEN 25 MG/DL (7-18); CALCIUM LEVEL 9.3 MG/DL (8.8-10.2); CARBON DIOXIDE LEVEL 27 MEQ/L (21-32); CHLORIDE LEVEL 102 MEQ/L (98-107); CREATININE FOR GFR 1.27 MG/DL (0.70-1.30); GLOMERULAR FILTRATION RATE 59.5 (>42); GLUCOSE, FASTING 177 MG/DL (70-100); POTASSIUM SERUM 4.2 MEQ/L (3.5-5.1); SODIUM LEVEL 136 MEQ/L (136-145)
[2017-10-08] MEDS: HumaLOG INSULIN (NovoLOG) PER UNIT SC ×4 (08:11→21:00)
[2017-10-08] MEDS: MAGNESIUM OXIDE 400 MG TAB (MAG-OX) PO ×2 (08:12→21:47)
[2017-10-08] MEDS: SPIRONOLACTONE 12.5MG PER 1/2 TABLET PO (08:12)
[2017-10-08] MEDS: BACLOFEN 10 MG TAB PO ×3 (08:12→21:47)
[2017-10-08] MEDS: GABAPENTIN 300 MG CAP PO ×3 (08:12→21:46)
[2017-10-08] MEDS: FUROSEMIDE 20 MG TAB PO (08:13)
[2017-10-08] MEDS: FENOFIBRATE 145 MG TAB (TRICOR) PO (08:13)
[2017-10-08] MEDS: CARVedilol 3.125 MG TAB PO ×2 (08:13→21:47)
[2017-10-08] MEDS: LEVEMIR (INSULIN DETEMIR) 1 UNITS/0.01ML SC ×2 (08:14→21:00)
[2017-10-08] MEDS: VANCOMYCIN HCL 1,000 MG, VIAL MATE ADAPTER 1 EACH in D5W 250 ML IV (08:14)
[2017-10-08] MEDS: VANCOMYCIN ORAL SOL 250MG/5ML ORAL SYRINGE PO ×3 (09:24→18:10)
[2017-10-08] MEDS: BISACODYL 10 MG SUPP PR (11:17)
[2017-10-08] MEDS: LORATADINE 10 MG TAB PO (21:47)
[2017-10-08] MEDS: SOLIFENACIN 5 MG TAB PO (21:47)
[2017-10-09] MEDS: VANCOMYCIN HCL 1,000 MG, VIAL MATE ADAPTER 1 EACH in D5W 250 ML IV ×2 (02:00→19:55)
[2017-10-09] MEDS: VANCOMYCIN ORAL SOL 250MG/5ML ORAL SYRINGE PO ×5 (06:01→23:53)
[2017-10-09 06:24] LABS: HEMATOCRIT 36.1 % (42.0-52.0); HEMOGLOBIN 11.5 g/dl (14.0-18.0); MEAN CORPUSCULAR HEMOGLOBIN 27.6 pg (27.0-33.0); MEAN CORPUSCULAR HGB CONC 31.9 g/dl (32.0-36.5); MEAN CORPUSCULAR VOLUME 86.8 fl (80.0-96.0); PLATELET COUNT, AUTOMATED 165 10^3/uL (150-450); RED BLOOD COUNT 4.16 10^6/uL (4.30-6.10); RED CELL DISTRIBUTION WIDTH 13.8 % (11.5-14.5)
[2017-10-09 06:42] LABS: ANION GAP 6 MEQ/L (8-16); BLOOD UREA NITROGEN 21 MG/DL (7-18); CALCIUM LEVEL 9.2 MG/DL (8.8-10.2); CARBON DIOXIDE LEVEL 26 MEQ/L (21-32); CHLORIDE LEVEL 104 MEQ/L (98-107); CREATININE FOR GFR 1.28 MG/DL (0.70-1.30); GLUCOSE, FASTING 191 MG/DL (70-100); POTASSIUM SERUM 4.1 MEQ/L (3.5-5.1); SODIUM LEVEL 136 MEQ/L (136-145)
[2017-10-09] MEDS: HumaLOG INSULIN (NovoLOG) PER UNIT SC ×4 (08:10→22:01)
[2017-10-09] MEDS: MAGNESIUM OXIDE 400 MG TAB (MAG-OX) PO ×2 (08:11→22:01)
[2017-10-09] MEDS: BACLOFEN 10 MG TAB PO ×3 (08:11→22:01)
[2017-10-09] MEDS: GABAPENTIN 300 MG CAP PO ×3 (08:11→22:00)
[2017-10-09] MEDS: FENOFIBRATE 145 MG TAB (TRICOR) PO (08:11)
[2017-10-09] MEDS: SPIRONOLACTONE 12.5MG PER 1/2 TABLET PO (08:11)
[2017-10-09] MEDS: CARVedilol 3.125 MG TAB PO ×2 (08:12→22:01)
[2017-10-09] MEDS: FUROSEMIDE 20 MG TAB PO (08:12)
[2017-10-09] MEDS: LEVEMIR (INSULIN DETEMIR) 1 UNITS/0.01ML SC ×2 (08:12→22:02)
[2017-10-09 11:59] LABS: BEDSIDE GLUCOSE 226 MG/DL (83-110)
[2017-10-09 12:00] LABS: BEDSIDE GLUCOSE 194 MG/DL (83-110)
[2017-10-09 12:00] LABS: BEDSIDE GLUCOSE 249 MG/DL (83-110)
[2017-10-09 12:33] LABS: BEDSIDE GLUCOSE 203 MG/DL (83-110)
[2017-10-09] MEDS: ENOXAPARIN 30 MG/0.3 ML SYR (J1650) SC (13:59)
[2017-10-09 16:55] LABS: BEDSIDE GLUCOSE 110 MG/DL (83-110)
[2017-10-09 19:56] LABS: VANCOMYCIN LEVEL TROUGH 22.9 UG/ML (10.0-20.0)
[2017-10-09] MEDS: SOLIFENACIN 5 MG TAB PO (22:00)
[2017-10-09] MEDS: LORATADINE 10 MG TAB PO (22:01)
[2017-10-10] MEDS: VANCOMYCIN ORAL SOL 250MG/5ML ORAL SYRINGE PO ×4 (05:42→23:37)
[2017-10-10 05:57] LABS: HEMATOCRIT 35.4 % (42.0-52.0); HEMOGLOBIN 11.5 g/dl (14.0-18.0); MEAN CORPUSCULAR HEMOGLOBIN 27.4 pg (27.0-33.0); MEAN CORPUSCULAR HGB CONC 32.5 g/dl (32.0-36.5); MEAN CORPUSCULAR VOLUME 84.5 fl (80.0-96.0); PLATELET COUNT, AUTOMATED 204 10^3/uL (150-450); RED BLOOD COUNT 4.19 10^6/uL (4.30-6.10); RED CELL DISTRIBUTION WIDTH 13.7 % (11.5-14.5)
[2017-10-10 06:10] LABS: ANION GAP 5 MEQ/L (8-16); BLOOD UREA NITROGEN 21 MG/DL (7-18); CALCIUM LEVEL 8.8 MG/DL (8.8-10.2); CARBON DIOXIDE LEVEL 29 MEQ/L (21-32); CHLORIDE LEVEL 102 MEQ/L (98-107); GLOMERULAR FILTRATION RATE > 60.0 (>42); GLUCOSE, FASTING 163 MG/DL (70-100); POTASSIUM SERUM 4.1 MEQ/L (3.5-5.1); SODIUM LEVEL 136 MEQ/L (136-145)
[2017-10-10 06:57] LABS: BEDSIDE GLUCOSE 265 MG/DL (83-110)
[2017-10-10] MEDS: HumaLOG INSULIN (NovoLOG) PER UNIT SC ×4 (08:06→21:00)
[2017-10-10] MEDS: BACLOFEN 10 MG TAB PO ×3 (08:06→21:42)
[2017-10-10] MEDS: CARVedilol 3.125 MG TAB PO ×2 (08:07→21:43)
[2017-10-10] MEDS: MAGNESIUM OXIDE 400 MG TAB (MAG-OX) PO ×2 (08:07→21:42)
[2017-10-10] MEDS: FENOFIBRATE 145 MG TAB (TRICOR) PO (08:07)
[2017-10-10] MEDS: SPIRONOLACTONE 12.5MG PER 1/2 TABLET PO ×2 (08:08→08:18)
[2017-10-10] MEDS: FUROSEMIDE 20 MG TAB PO ×2 (08:08→08:18)
[2017-10-10] MEDS: GABAPENTIN 300 MG CAP PO ×3 (08:08→21:42)
[2017-10-10] MEDS: ENOXAPARIN 30 MG/0.3 ML SYR (J1650) SC (08:09)
[2017-10-10] MEDS: LEVEMIR (INSULIN DETEMIR) 1 UNITS/0.01ML SC ×2 (08:09→21:43)
[2017-10-10 11:56] LABS: BEDSIDE GLUCOSE 191 MG/DL (83-110)
[2017-10-10] MEDS: VANCOMYCIN HCL 1,000 MG, VIAL MATE ADAPTER 1 EACH in D5W 250 ML IV (14:25)
[2017-10-10 16:40] LABS: BEDSIDE GLUCOSE 165 MG/DL (83-110)
[2017-10-10] MEDS: SOLIFENACIN 5 MG TAB PO (21:42)
[2017-10-10] MEDS: LORATADINE 10 MG TAB PO (21:42)
[2017-10-11] MEDS: VANCOMYCIN ORAL SOL 250MG/5ML ORAL SYRINGE PO ×4 (05:28→23:24)
[2017-10-11 06:12] LABS: HEMATOCRIT 35.2 % (42.0-52.0); HEMOGLOBIN 11.5 g/dl (14.0-18.0); MEAN CORPUSCULAR HEMOGLOBIN 27.8 pg (27.0-33.0); MEAN CORPUSCULAR HGB CONC 32.7 g/dl (32.0-36.5); PLATELET COUNT, AUTOMATED 223 10^3/uL (150-450); RED BLOOD COUNT 4.14 10^6/uL (4.30-6.10); RED CELL DISTRIBUTION WIDTH 13.5 % (11.5-14.5); WHITE BLOOD COUNT 7.1 10^3/uL (4.0-10.0)
[2017-10-11 06:33] LABS: ANION GAP 6 MEQ/L (8-16); BLOOD UREA NITROGEN 24 MG/DL (7-18); CALCIUM LEVEL 9.2 MG/DL (8.8-10.2); CARBON DIOXIDE LEVEL 29 MEQ/L (21-32); CHLORIDE LEVEL 102 MEQ/L (98-107); CREATININE FOR GFR 1.17 MG/DL (0.70-1.30); GLOMERULAR FILTRATION RATE > 60.0 (>42); GLUCOSE, FASTING 89 MG/DL (70-100); POTASSIUM SERUM 4.1 MEQ/L (3.5-5.1); SODIUM LEVEL 137 MEQ/L (136-145)
[2017-10-11] MEDS: SPIRONOLACTONE 12.5MG PER 1/2 TABLET PO (08:22)
[2017-10-11] MEDS: FENOFIBRATE 145 MG TAB (TRICOR) PO (08:23)
[2017-10-11] MEDS: CARVedilol 3.125 MG TAB PO ×2 (08:23→21:03)
[2017-10-11] MEDS: GABAPENTIN 300 MG CAP PO ×3 (08:23→21:02)
[2017-10-11] MEDS: BACLOFEN 10 MG TAB PO ×3 (08:23→21:02)
[2017-10-11] MEDS: MAGNESIUM OXIDE 400 MG TAB (MAG-OX) PO ×2 (08:24→21:02)
[2017-10-11] MEDS: FUROSEMIDE 20 MG TAB PO (08:24)
[2017-10-11] MEDS: HumaLOG INSULIN (NovoLOG) PER UNIT SC ×4 (08:25→20:53)
[2017-10-11] MEDS: LEVEMIR (INSULIN DETEMIR) 1 UNITS/0.01ML SC ×2 (08:26→21:05)
[2017-10-11] MEDS: VANCOMYCIN HCL 1,000 MG, VIAL MATE ADAPTER 1 EACH in D5W 250 ML IV (08:27)
[2017-10-11] MEDS: ENOXAPARIN 30 MG/0.3 ML SYR (J1650) SC (08:27)
[2017-10-11] MEDS: LORATADINE 10 MG TAB PO (21:02)
[2017-10-11] MEDS: SOLIFENACIN 5 MG TAB PO (21:02)
[2017-10-11 21:30] LABS: BEDSIDE GLUCOSE 153 MG/DL (83-110)
[2017-10-11 21:30] LABS: BEDSIDE GLUCOSE 164 MG/DL (83-110)
[2017-10-11 21:30] LABS: BEDSIDE GLUCOSE 160 MG/DL (83-110)
[2017-10-11 22:26] LABS: BEDSIDE GLUCOSE 174 MG/DL (83-110)
[2017-10-12] MEDS: VANCOMYCIN ORAL SOL 250MG/5ML ORAL SYRINGE PO ×2 (05:19→11:12)
[2017-10-12] MEDS: HumaLOG INSULIN (NovoLOG) PER UNIT SC (07:30)
[2017-10-12] MEDS: ENOXAPARIN 30 MG/0.3 ML SYR (J1650) SC (08:13)
[2017-10-12] MEDS: VANCOMYCIN HCL 1,000 MG, VIAL MATE ADAPTER 1 EACH in D5W 250 ML IV (08:13)
[2017-10-12] MEDS: MAGNESIUM OXIDE 400 MG TAB (MAG-OX) PO (08:14)
[2017-10-12] MEDS: BACLOFEN 10 MG TAB PO (08:14)
[2017-10-12] MEDS: GABAPENTIN 300 MG CAP PO (08:14)
[2017-10-12] MEDS: FENOFIBRATE 145 MG TAB (TRICOR) PO (08:14)
[2017-10-12] MEDS: SPIRONOLACTONE 12.5MG PER 1/2 TABLET PO (08:14)
[2017-10-12] MEDS: LEVEMIR (INSULIN DETEMIR) 1 UNITS/0.01ML SC (08:15)
[2017-10-12] MEDS: CARVedilol 3.125 MG TAB PO (08:15)
[2017-10-12] MEDS: FUROSEMIDE 20 MG TAB PO (08:15)
[2017-10-13 05:22] LABS: BEDSIDE GLUCOSE 82 MG/DL (83-110)
== END 2017-10-12 11:31 | disposition home health service (06) | DRG 617 ==
LOC: M ED 11:19 → M ED INP 12:54 → M MSPAV 14:17
PROC: 0Y6R0Z3 Detachment at Right 2nd Toe, Low, Open Approach (ICD-10-PCS; principal; 2017-10-05 14:41)
DX: E11.621 Type 2 diabetes mellitus with foot ulcer (principal); I50.32 Chronic diastolic (congestive) heart failure; I13.0 Hypertensive heart and chronic kidney disease with heart failure and stage 1 through stage 4 chronic kidney disease, or unspecified chronic kidney disease; G82.20 Paraplegia, unspecified; A04.72 Enterocolitis due to Clostridium difficile, not specified as recurrent; M86.171 Other acute osteomyelitis, right ankle and foot; E11.21 Type 2 diabetes mellitus with diabetic nephropathy; N18.9 Chronic kidney disease, unspecified; L97.519 Non-pressure chronic ulcer of other part of right foot with unspecified severity; M06.9 Rheumatoid arthritis, unspecified; E78.5 Hyperlipidemia, unspecified; B95.62 Methicillin resistant Staphylococcus aureus infection as the cause of diseases classified elsewhere; E11.40 Type 2 diabetes mellitus with diabetic neuropathy, unspecified; G47.33 Obstructive sleep apnea (adult) (pediatric); Z99.89 Dependence on other enabling machines and devices; Z90.49 Acquired absence of other specified parts of digestive tract; Z96.652 Presence of left artificial knee joint; Z96.641 Presence of right artificial hip joint; Z98.1 Arthrodesis status; Z79.899 Other long term (current) drug therapy; Z87.891 Personal history of nicotine dependence; Z88.5 Allergy status to narcotic agent; Z88.2 Allergy status to sulfonamides; Z91.048 Other nonmedicinal substance allergy status; Z88.8 Allergy status to other drugs, medicaments and biological substances; Z96.0 Presence of urogenital implants; Z79.4 Long term (current) use of insulin

== ENCOUNTER → 2017-11-02 | Outpatient (REF) | payer MEDICARE, MEDICAID | LOC: SKLABADC 09:39 | DX: R19.7 Diarrhea, unspecified (principal) | CPT/HCPCS: 87507 ==

== ENCOUNTER → 2017-11-11 | Outpatient (REF) | payer MEDICARE, MEDICAID ==
[2017-11-11 11:03] LABS: MAGNESIUM LEVEL 1.8 MG/DL (1.8-2.4)
== END ==
LOC: SKLABADC 09:06
DX: R19.7 Diarrhea, unspecified (principal)
CPT/HCPCS: 83735

== ENCOUNTER 2017-11-14 17:50 | Inpatient (IN) | payer MEDICARE, MEDICAID ==
[2017-11-14] MEDS ORDERED: DEXTROSE 50% 50 ML SYRINGE As Ordered (18:06)
[2017-11-14] MEDS: DEXTROSE 50% 50 ML VIAL IV (18:15)
[2017-11-14] MEDS: NS 500 ML IV (18:20)
[2017-11-14 18:22] LABS: BASO % 0.2 % (0.0-1.0); EOS # 0.1 10^3/uL (0.0-0.50); EOS % 0.6 % (0.0-3.0); HEMATOCRIT 42.2 % (42.0-52.0); HEMOGLOBIN 13.9 g/dl (14.0-18.0); IMMATURE GRANULOCYTE % 0.6 % (0-3.0); LYMPH # 1.6 10^3/uL (1.5-4.5); LYMPH % 12.7 % (24.0-44.0); MEAN CORPUSCULAR HEMOGLOBIN 27.4 pg (27.0-33.0); MEAN CORPUSCULAR HGB CONC 32.9 g/dl (32.0-36.5); MEAN CORPUSCULAR VOLUME 83.1 fl (80.0-96.0); MONO # 1.1 10^3/uL (0.0-0.8); MONO % 8.7 % (0.0-5.0); NEUTROPHILS # 9.8 10^3/uL (1.8-7.7); NEUTROPHILS % 77.2 % (36.0-66.0); PLATELET COUNT, AUTOMATED 255 10^3/uL (150-450); RED BLOOD COUNT 5.08 10^6/uL (4.30-6.10); RED CELL DISTRIBUTION WIDTH 12.6 % (11.5-14.5); WHITE BLOOD COUNT 12.7 10^3/uL (4.0-10.0)
[2017-11-14] MEDS: ACETAMINOPHEN TAB 650MG DOSE (2X325MG) PO (18:32)
[2017-11-14 18:50] LABS: AMMONIA 25 uMOL/L (<32)
[2017-11-14 18:53] LABS: LACTIC ACID SEPSIS PROTOCOL 0.9 MMOL/L (0.4-2.0)
[2017-11-14 18:55] LABS: ALBUMIN 3.4 GM/DL (3.2-5.2); ALBUMIN/GLOBULIN RATIO 0.76 (1.00-1.93); ALKALINE PHOSPHATASE 82 U/L (45-117); ALT/SGPT 17 U/L (12-78); ANION GAP 7 MEQ/L (8-16); AST/SGOT 14 U/L (7-37); BILIRUBIN,DIRECT 0.3 MG/DL (0.0-0.2); BILIRUBIN,TOTAL 0.6 MG/DL (0.2-1.0); BLOOD UREA NITROGEN 25 MG/DL (7-18); CALCIUM LEVEL 8.9 MG/DL (8.8-10.2); CARBON DIOXIDE LEVEL 27 MEQ/L (21-32); CHLORIDE LEVEL 96 MEQ/L (98-107); CPK CREATINE PHOSPHOKINASE 80 U/L (39-308); CREATININE FOR GFR 1.49 MG/DL (0.70-1.30); GLOMERULAR FILTRATION RATE 49.5 (>42); GLUCOSE, FASTING 134 MG/DL (70-100); SODIUM LEVEL 130 MEQ/L (136-145); TOTAL PROTEIN 7.9 GM/DL (6.4-8.2); TROPONIN I 0.02 NG/ML (< 0.10)
[2017-11-14 18:58] LABS: OSMOLALITY SERUM 281 MOSM/KG (280-301)
[2017-11-14 19:01] LABS: MB/CK RELATIVE INDEX 1.25 (< OR =4)
[2017-11-14 19:16] LABS: BEDSIDE GLUCOSE 227 MG/DL (83-110)
[2017-11-14 19:21] LABS: KETONE, URINE AUTO RFX NEGATIVE (NEGATIVE); LEUKOCYTE ESTERASE UR AUTO RFX 2+ (NEGATIVE); MUCUS, URINE RFX SMALL (NEGATIVE); NITRITE, URINE AUTO RFX POSITIVE (NEGATIVE); RBC, URINE AUTO RFX 17 /HPF (0-3); SPECIFIC GRAVITY UR AUTO RFX 1.007 (1.002-1.035); SQUAM EPITHELIAL CELL UR AURFX 0 /HPF (0-6); WBC, URINE AUTO RFX 46 /HPF (0-3)
[2017-11-14] MEDS: CEFTRIAXONE SOD 1 GM in APPROPRIATE DILUENT 1 EA IV (20:45)
[2017-11-14] MEDS: HumaLOG INSULIN (NovoLOG) PER UNIT SC (21:00)
[2017-11-15] MEDS ORDERED: CLOTRIMAZOLE 1% TOPICAL CREAM 30GM TOP (00:15)
[2017-11-15] MEDS ORDERED: NITROGLYCERIN 0.4 MG SUBL TABLET SL (00:15)
[2017-11-15 00:22] LABS: BEDSIDE GLUCOSE 146 MG/DL (83-110)
[2017-11-15] MEDS: LORATADINE 10 MG TAB PO ×2 (01:41→20:44)
[2017-11-15] MEDS: MAGNESIUM OXIDE 400 MG TAB (MAG-OX) PO ×3 (01:41→20:45)
[2017-11-15] MEDS: GABAPENTIN 300 MG CAP PO ×4 (01:42→20:45)
[2017-11-15] MEDS: BACLOFEN 10 MG TAB PO ×4 (01:42→20:51)
[2017-11-15] MEDS: APIXABAN 5 MG TAB (ELIQUIS) PO ×3 (01:42→20:44)
[2017-11-15] MEDS: NS 1,000 ML IV ×2 (01:43→20:44)
[2017-11-15] MEDS: PIPERACILLIN/TAZOBACTAM SOD 3.375 GM in APPROPRIATE DILUENT 1 EA IV ×4 (03:08→20:44)
[2017-11-15 05:56] LABS: HEMATOCRIT 39.3 % (42.0-52.0); HEMOGLOBIN 12.8 g/dl (14.0-18.0); MEAN CORPUSCULAR HEMOGLOBIN 26.9 pg (27.0-33.0); MEAN CORPUSCULAR HGB CONC 32.6 g/dl (32.0-36.5); MEAN CORPUSCULAR VOLUME 82.7 fl (80.0-96.0); PLATELET COUNT, AUTOMATED 251 10^3/uL (150-450); RED BLOOD COUNT 4.75 10^6/uL (4.30-6.10); RED CELL DISTRIBUTION WIDTH 12.6 % (11.5-14.5); WHITE BLOOD COUNT 8.4 10^3/uL (4.0-10.0)
[2017-11-15 06:15] LABS: ANION GAP 4 MEQ/L (8-16); BLOOD UREA NITROGEN 22 MG/DL (7-18); CALCIUM LEVEL 8.8 MG/DL (8.8-10.2); CARBON DIOXIDE LEVEL 33 MEQ/L (21-32); CHLORIDE LEVEL 99 MEQ/L (98-107); CREATININE FOR GFR 1.39 MG/DL (0.70-1.30); GLOMERULAR FILTRATION RATE 53.6 (>42); GLUCOSE, FASTING 75 MG/DL (70-100); POTASSIUM SERUM 3.4 MEQ/L (3.5-5.1); SODIUM LEVEL 136 MEQ/L (136-145)
[2017-11-15 06:16] LABS: LACTIC ACID SEPSIS PROTOCOL 0.7 MMOL/L (0.4-2.0)
[2017-11-15 06:24] LABS: THYROID STIMULATING HORMONE 0.859 uIU/ML (0.358-3.740)
[2017-11-15] MEDS: HumaLOG INSULIN (NovoLOG) PER UNIT SC ×4 (07:22→20:45)
[2017-11-15] MEDS: LEVEMIR (INSULIN DETEMIR) 1 UNITS/0.01ML SC (08:57)
[2017-11-15] MEDS: FENOFIBRATE 145 MG TAB (TRICOR) PO (08:58)
[2017-11-15] MEDS ORDERED: LEVEMIR (INSULIN DETEMIR) 1 UNITS/0.01ML SC (09:00)
[2017-11-15] MEDS ORDERED: SPIRONOLACTONE 25 MG TAB PO (09:00)
[2017-11-15 12:09] LABS: APPEARANCE, URINE HAZY (CLEAR); BACTERIA, URINE AUTO 1+ (NEGATIVE); BILIRUBIN, URINE AUTO NEGATIVE (NEGATIVE); BLOOD, URINE BLOOD 3+ (NEGATIVE); COLOR, URINE YELLOW (YELLOW); GLUCOSE, URINE (UA) AUTO NEGATIVE (NEGATIVE); KETONE, URINE AUTO NEGATIVE (NEGATIVE); LEUKOCYTE ESTERASE, URINE AUTO 3+ (NEGATIVE); NITRITE, URINE AUTO NEGATIVE (NEGATIVE); PROTEIN, URINE AUTO 1+ mg/dL (NEGATIVE); RBC, URINE AUTO 9 /HPF (0-3); SPECIFIC GRAVITY URINE AUTO 1.008 (1.002-1.035); SQUAMOUS EPITHELIAL CELL UR AU 0 /HPF (0-6); UROBILINOGEN, URINE AUTO 0.2 mg/dL (0.0-2.0); WBC, URINE AUTO 32 /HPF (0-3)
[2017-11-15 12:11] LABS: BEDSIDE GLUCOSE 121 MG/DL (83-110)
[2017-11-15] MEDS: ACETAMINOPHEN TAB 650MG DOSE (2X325MG) PO (14:25)
[2017-11-15 14:34] LABS: BEDSIDE GLUCOSE 180 MG/DL (83-110)
[2017-11-15 16:37] LABS: BEDSIDE GLUCOSE 113 MG/DL (83-110)
[2017-11-15 22:04] LABS: BEDSIDE GLUCOSE 191 MG/DL (83-110)
[2017-11-16] MEDS: PIPERACILLIN/TAZOBACTAM SOD 3.375 GM in APPROPRIATE DILUENT 1 EA IV ×4 (02:39→20:57)
[2017-11-16 07:15] LABS: HEMATOCRIT 35.8 % (42.0-52.0); HEMOGLOBIN 11.7 g/dl (14.0-18.0); MEAN CORPUSCULAR HEMOGLOBIN 27.5 pg (27.0-33.0); MEAN CORPUSCULAR HGB CONC 32.7 g/dl (32.0-36.5); PLATELET COUNT, AUTOMATED 235 10^3/uL (150-450); RED BLOOD COUNT 4.26 10^6/uL (4.30-6.10); RED CELL DISTRIBUTION WIDTH 12.9 % (11.5-14.5); WHITE BLOOD COUNT 7.4 10^3/uL (4.0-10.0)
[2017-11-16] MEDS: HumaLOG INSULIN (NovoLOG) PER UNIT SC ×4 (07:30→21:00)
[2017-11-16 07:31] LABS: ANION GAP 8 MEQ/L (8-16); BLOOD UREA NITROGEN 20 MG/DL (7-18); CALCIUM LEVEL 8.8 MG/DL (8.8-10.2); CARBON DIOXIDE LEVEL 27 MEQ/L (21-32); CHLORIDE LEVEL 104 MEQ/L (98-107); CREATININE FOR GFR 1.37 MG/DL (0.70-1.30); GLOMERULAR FILTRATION RATE 54.5 (>42); GLUCOSE, FASTING 95 MG/DL (70-100); POTASSIUM SERUM 3.8 MEQ/L (3.5-5.1); SODIUM LEVEL 139 MEQ/L (136-145)
[2017-11-16] MEDS: FENOFIBRATE 145 MG TAB (TRICOR) PO (08:10)
[2017-11-16] MEDS: GABAPENTIN 300 MG CAP PO ×3 (08:11→20:57)
[2017-11-16] MEDS: LEVEMIR (INSULIN DETEMIR) 1 UNITS/0.01ML SC (08:11)
[2017-11-16] MEDS: BACLOFEN 10 MG TAB PO ×3 (08:12→20:56)
[2017-11-16] MEDS: APIXABAN 5 MG TAB (ELIQUIS) PO ×2 (08:12→20:56)
[2017-11-16] MEDS: MAGNESIUM OXIDE 400 MG TAB (MAG-OX) PO ×2 (08:12→20:57)
[2017-11-16 13:01] LABS: BEDSIDE GLUCOSE 241 MG/DL (83-110)
[2017-11-16] MEDS: NS 1,000 ML IV (16:18)
[2017-11-16] MEDS: LORATADINE 10 MG TAB PO (20:57)
[2017-11-16] MEDS: ACETAMINOPHEN TAB 650MG DOSE (2X325MG) PO (20:58)
[2017-11-17] MEDS: PIPERACILLIN/TAZOBACTAM SOD 3.375 GM in APPROPRIATE DILUENT 1 EA IV ×4 (01:17→20:23)
[2017-11-17 06:42] LABS: HEMATOCRIT 36.1 % (42.0-52.0); HEMOGLOBIN 11.9 g/dl (14.0-18.0); MEAN CORPUSCULAR HEMOGLOBIN 27.8 pg (27.0-33.0); MEAN CORPUSCULAR VOLUME 84.3 fl (80.0-96.0); PLATELET COUNT, AUTOMATED 225 10^3/uL (150-450); RED BLOOD COUNT 4.28 10^6/uL (4.30-6.10); RED CELL DISTRIBUTION WIDTH 12.9 % (11.5-14.5); WHITE BLOOD COUNT 7.6 10^3/uL (4.0-10.0)
[2017-11-17 07:11] LABS: ANION GAP 6 MEQ/L (8-16); BLOOD UREA NITROGEN 16 MG/DL (7-18); CALCIUM LEVEL 8.9 MG/DL (8.8-10.2); CARBON DIOXIDE LEVEL 25 MEQ/L (21-32); CHLORIDE LEVEL 106 MEQ/L (98-107); CREATININE FOR GFR 1.31 MG/DL (0.70-1.30); GLOMERULAR FILTRATION RATE 57.4 (>42); GLUCOSE, FASTING 173 MG/DL (70-100); POTASSIUM SERUM 3.8 MEQ/L (3.5-5.1); SODIUM LEVEL 137 MEQ/L (136-145)
[2017-11-17] MEDS: MAGNESIUM OXIDE 400 MG TAB (MAG-OX) PO ×2 (08:33→20:23)
[2017-11-17] MEDS: HumaLOG INSULIN (NovoLOG) PER UNIT SC ×4 (08:33→21:00)
[2017-11-17] MEDS: FENOFIBRATE 145 MG TAB (TRICOR) PO (08:33)
[2017-11-17] MEDS: APIXABAN 5 MG TAB (ELIQUIS) PO ×2 (08:33→20:23)
[2017-11-17] MEDS: LEVEMIR (INSULIN DETEMIR) 1 UNITS/0.01ML SC (08:33)
[2017-11-17] MEDS: BACLOFEN 10 MG TAB PO ×3 (08:33→20:23)
[2017-11-17] MEDS: GABAPENTIN 300 MG CAP PO ×3 (08:33→20:23)
[2017-11-17 11:55] LABS: BEDSIDE GLUCOSE 42 MG/DL (83-110)
[2017-11-17] MEDS: NS 1,000 ML IV (12:00)
[2017-11-17] MEDS: LORATADINE 10 MG TAB PO (20:23)
[2017-11-17 23:26] LABS: BEDSIDE GLUCOSE 198 MG/DL (83-110)
[2017-11-17 23:26] LABS: BEDSIDE GLUCOSE 183 MG/DL (83-110)
[2017-11-18] MEDS: PIPERACILLIN/TAZOBACTAM SOD 3.375 GM in APPROPRIATE DILUENT 1 EA IV ×2 (02:08→08:24)
[2017-11-18 06:02] LABS: HEMATOCRIT 34.7 % (42.0-52.0); HEMOGLOBIN 11.3 g/dl (14.0-18.0); MEAN CORPUSCULAR HGB CONC 32.6 g/dl (32.0-36.5); MEAN CORPUSCULAR VOLUME 82.8 fl (80.0-96.0); PLATELET COUNT, AUTOMATED 255 10^3/uL (150-450); RED BLOOD COUNT 4.19 10^6/uL (4.30-6.10); RED CELL DISTRIBUTION WIDTH 12.6 % (11.5-14.5); WHITE BLOOD COUNT 8.9 10^3/uL (4.0-10.0)
[2017-11-18 06:28] LABS: ANION GAP 6 MEQ/L (8-16); BLOOD UREA NITROGEN 14 MG/DL (7-18); CALCIUM LEVEL 9.2 MG/DL (8.8-10.2); CARBON DIOXIDE LEVEL 28 MEQ/L (21-32); CHLORIDE LEVEL 103 MEQ/L (98-107); CREATININE FOR GFR 1.23 MG/DL (0.70-1.30); GLOMERULAR FILTRATION RATE > 60.0 (>42); GLUCOSE, FASTING 139 MG/DL (70-100); POTASSIUM SERUM 3.8 MEQ/L (3.5-5.1); SODIUM LEVEL 137 MEQ/L (136-145)
[2017-11-18] MEDS: FENOFIBRATE 145 MG TAB (TRICOR) PO (08:24)
[2017-11-18] MEDS: GABAPENTIN 300 MG CAP PO ×3 (08:24→21:45)
[2017-11-18] MEDS: HumaLOG INSULIN (NovoLOG) PER UNIT SC ×4 (08:24→21:00)
[2017-11-18] MEDS: APIXABAN 5 MG TAB (ELIQUIS) PO ×2 (08:24→21:45)
[2017-11-18] MEDS: LEVEMIR (INSULIN DETEMIR) 1 UNITS/0.01ML SC (08:24)
[2017-11-18] MEDS: MAGNESIUM OXIDE 400 MG TAB (MAG-OX) PO ×2 (08:25→21:44)
[2017-11-18] MEDS: BACLOFEN 10 MG TAB PO ×3 (08:25→21:44)
[2017-11-18] MEDS: NS 1,000 ML IV (08:25)
[2017-11-18] MEDS: ACETAMINOPHEN TAB 650MG DOSE (2X325MG) PO (09:39)
[2017-11-18] MEDS: ONDANSETRON 4MG/2ML VIAL (J2405) IV (11:37)
[2017-11-18 11:59] LABS: BEDSIDE GLUCOSE 234 MG/DL (83-110)
[2017-11-18] MEDS: CEFTRIAXONE SOD 1 GM in APPROPRIATE DILUENT 1 EA IV (13:10)
[2017-11-18 17:09] LABS: BEDSIDE GLUCOSE 129 MG/DL (83-110)
[2017-11-18 21:42] LABS: BEDSIDE GLUCOSE 236 MG/DL (83-110)
[2017-11-18] MEDS: LACTOBACILLUS ACIDOPHILUS CAP (BACID) PO (21:44)
[2017-11-18] MEDS: LORATADINE 10 MG TAB PO (21:45)
[2017-11-19] MEDS: amLODIPine 5 MG TAB PO (03:32)
[2017-11-19 06:35] LABS: HEMATOCRIT 34.9 % (42.0-52.0); HEMOGLOBIN 11.6 g/dl (14.0-18.0); MEAN CORPUSCULAR HEMOGLOBIN 27.8 pg (27.0-33.0); MEAN CORPUSCULAR HGB CONC 33.2 g/dl (32.0-36.5); MEAN CORPUSCULAR VOLUME 83.5 fl (80.0-96.0); PLATELET COUNT, AUTOMATED 249 10^3/uL (150-450); RED BLOOD COUNT 4.18 10^6/uL (4.30-6.10); RED CELL DISTRIBUTION WIDTH 12.7 % (11.5-14.5); WHITE BLOOD COUNT 7.8 10^3/uL (4.0-10.0)
[2017-11-19 06:44] LABS: ANION GAP 8 MEQ/L (8-16); BLOOD UREA NITROGEN 15 MG/DL (7-18); CALCIUM LEVEL 9.5 MG/DL (8.8-10.2); CARBON DIOXIDE LEVEL 27 MEQ/L (21-32); CHLORIDE LEVEL 103 MEQ/L (98-107); CREATININE FOR GFR 1.18 MG/DL (0.70-1.30); GLOMERULAR FILTRATION RATE > 60.0 (>42); GLUCOSE, FASTING 220 MG/DL (70-100); SODIUM LEVEL 138 MEQ/L (136-145)
[2017-11-19] MEDS: FENOFIBRATE 145 MG TAB (TRICOR) PO (08:06)
[2017-11-19] MEDS: APIXABAN 5 MG TAB (ELIQUIS) PO ×2 (08:06→21:43)
[2017-11-19] MEDS: LACTOBACILLUS ACIDOPHILUS CAP (BACID) PO ×2 (08:07→21:41)
[2017-11-19] MEDS: MAGNESIUM OXIDE 400 MG TAB (MAG-OX) PO ×2 (08:07→21:41)
[2017-11-19] MEDS: GABAPENTIN 300 MG CAP PO ×3 (08:07→21:41)
[2017-11-19] MEDS: BACLOFEN 10 MG TAB PO ×3 (08:07→21:41)
[2017-11-19] MEDS: HumaLOG INSULIN (NovoLOG) PER UNIT SC ×4 (08:09→20:52)
[2017-11-19] MEDS: LEVEMIR (INSULIN DETEMIR) 1 UNITS/0.01ML SC (08:09)
[2017-11-19] MEDS: CEFTRIAXONE SOD 1 GM in APPROPRIATE DILUENT 1 EA IV (12:18)
[2017-11-19 12:33] LABS: BEDSIDE GLUCOSE 231 MG/DL (83-110)
[2017-11-19] MEDS: SPIRONOLACTONE 12.5MG PER 1/2 TABLET PO (15:58)
[2017-11-19] MEDS: FUROSEMIDE 20 MG TAB PO (15:59)
[2017-11-19 17:24] LABS: BEDSIDE GLUCOSE 235 MG/DL (83-110)
[2017-11-19 20:32] LABS: BEDSIDE GLUCOSE 239 MG/DL (83-110)
[2017-11-19] MEDS: LORATADINE 10 MG TAB PO (21:43)
[2017-11-19] MEDS: CARVedilol 3.125 MG TAB PO (21:43)
[2017-11-20 06:03] LABS: HEMATOCRIT 35.5 % (42.0-52.0); HEMOGLOBIN 11.6 g/dl (14.0-18.0); MEAN CORPUSCULAR HEMOGLOBIN 27.2 pg (27.0-33.0); MEAN CORPUSCULAR HGB CONC 32.7 g/dl (32.0-36.5); MEAN CORPUSCULAR VOLUME 83.3 fl (80.0-96.0); PLATELET COUNT, AUTOMATED 246 10^3/uL (150-450); RED BLOOD COUNT 4.26 10^6/uL (4.30-6.10); RED CELL DISTRIBUTION WIDTH 12.7 % (11.5-14.5); WHITE BLOOD COUNT 7.6 10^3/uL (4.0-10.0)
[2017-11-20 06:35] LABS: ANION GAP 9 MEQ/L (8-16); BLOOD UREA NITROGEN 17 MG/DL (7-18); CALCIUM LEVEL 9.3 MG/DL (8.8-10.2); CARBON DIOXIDE LEVEL 28 MEQ/L (21-32); CHLORIDE LEVEL 100 MEQ/L (98-107); CREATININE FOR GFR 1.24 MG/DL (0.70-1.30); GLOMERULAR FILTRATION RATE > 60.0 (>42); GLUCOSE, FASTING 264 MG/DL (70-100); POTASSIUM SERUM 3.8 MEQ/L (3.5-5.1); SODIUM LEVEL 137 MEQ/L (136-145)
[2017-11-20] MEDS: SPIRONOLACTONE 12.5MG PER 1/2 TABLET PO (08:38)
[2017-11-20] MEDS: FENOFIBRATE 145 MG TAB (TRICOR) PO (08:38)
[2017-11-20] MEDS: BACLOFEN 10 MG TAB PO ×3 (08:39→21:27)
[2017-11-20] MEDS: GABAPENTIN 300 MG CAP PO ×3 (08:39→21:27)
[2017-11-20] MEDS: APIXABAN 5 MG TAB (ELIQUIS) PO ×2 (08:39→21:27)
[2017-11-20] MEDS: HumaLOG INSULIN (NovoLOG) PER UNIT SC ×4 (08:39→21:28)
[2017-11-20] MEDS: LEVEMIR (INSULIN DETEMIR) 1 UNITS/0.01ML SC (08:39)
[2017-11-20] MEDS: LACTOBACILLUS ACIDOPHILUS CAP (BACID) PO ×2 (08:39→21:26)
[2017-11-20] MEDS: CARVedilol 3.125 MG TAB PO ×2 (08:39→21:28)
[2017-11-20] MEDS: FUROSEMIDE 20 MG TAB PO (08:40)
[2017-11-20] MEDS: MAGNESIUM OXIDE 400 MG TAB (MAG-OX) PO ×2 (08:40→21:26)
[2017-11-20] MEDS ORDERED: amLODIPine 5 MG TAB PO (09:00)
[2017-11-20 11:48] LABS: BEDSIDE GLUCOSE 272 MG/DL (83-110)
[2017-11-20] MEDS: CEFTRIAXONE SOD 1 GM in APPROPRIATE DILUENT 1 EA IV (12:07)
[2017-11-20 16:40] LABS: BEDSIDE GLUCOSE 156 MG/DL (83-110)
[2017-11-20 20:44] LABS: BEDSIDE GLUCOSE 282 MG/DL (83-110)
[2017-11-20] MEDS: LORATADINE 10 MG TAB PO (21:27)
[2017-11-20] MEDS: CEFAZOLIN SOD 1 GM in APPROPRIATE DILUENT 1 EA IV (23:53)
[2017-11-21 03:52] LABS: BEDSIDE GLUCOSE 202 MG/DL (83-110)
[2017-11-21 05:51] LABS: HEMATOCRIT 36.2 % (42.0-52.0); MEAN CORPUSCULAR HEMOGLOBIN 27.2 pg (27.0-33.0); MEAN CORPUSCULAR HGB CONC 33.1 g/dl (32.0-36.5); MEAN CORPUSCULAR VOLUME 82.1 fl (80.0-96.0); PLATELET COUNT, AUTOMATED 296 10^3/uL (150-450); RED BLOOD COUNT 4.41 10^6/uL (4.30-6.10); RED CELL DISTRIBUTION WIDTH 12.7 % (11.5-14.5); WHITE BLOOD COUNT 8.6 10^3/uL (4.0-10.0)
[2017-11-21 06:06] LABS: ANION GAP 7 MEQ/L (8-16); BLOOD UREA NITROGEN 20 MG/DL (7-18); CALCIUM LEVEL 9.2 MG/DL (8.8-10.2); CARBON DIOXIDE LEVEL 30 MEQ/L (21-32); CHLORIDE LEVEL 99 MEQ/L (98-107); CREATININE FOR GFR 1.27 MG/DL (0.70-1.30); GLOMERULAR FILTRATION RATE 59.5 (>42); GLUCOSE, FASTING 233 MG/DL (70-100); POTASSIUM SERUM 3.6 MEQ/L (3.5-5.1); SODIUM LEVEL 136 MEQ/L (136-145)
[2017-11-21 06:36] LABS: BEDSIDE GLUCOSE 229 MG/DL (83-110)
[2017-11-21] MEDS: LEVEMIR (INSULIN DETEMIR) 1 UNITS/0.01ML SC (08:48)
[2017-11-21] MEDS: CEFAZOLIN SOD 1 GM in APPROPRIATE DILUENT 1 EA IV (08:49)
[2017-11-21] MEDS: SPIRONOLACTONE 12.5MG PER 1/2 TABLET PO (08:49)
[2017-11-21] MEDS: HumaLOG INSULIN (NovoLOG) PER UNIT SC ×4 (08:49→20:51)
[2017-11-21] MEDS: MAGNESIUM OXIDE 400 MG TAB (MAG-OX) PO ×2 (08:50→20:49)
[2017-11-21] MEDS: FENOFIBRATE 145 MG TAB (TRICOR) PO (08:50)
[2017-11-21] MEDS: APIXABAN 5 MG TAB (ELIQUIS) PO ×2 (08:50→20:48)
[2017-11-21] MEDS: LACTOBACILLUS ACIDOPHILUS CAP (BACID) PO ×2 (08:50→20:49)
[2017-11-21] MEDS: GABAPENTIN 300 MG CAP PO ×3 (08:50→20:49)
[2017-11-21] MEDS: FUROSEMIDE 20 MG TAB PO (08:51)
[2017-11-21] MEDS: CARVedilol 3.125 MG TAB PO ×2 (08:54→20:50)
[2017-11-21] MEDS: BACLOFEN 10 MG TAB PO ×3 (08:55→20:48)
[2017-11-21 11:41] LABS: BEDSIDE GLUCOSE 394 MG/DL (83-110)
[2017-11-21 12:04] LABS: BEDSIDE GLUCOSE 208 MG/DL (83-110)
[2017-11-21 12:05] LABS: BEDSIDE GLUCOSE 174 MG/DL (83-110)
[2017-11-21] MEDS: ACETAMINOPHEN TAB 650MG DOSE (2X325MG) PO ×2 (12:52→20:52)
[2017-11-21 17:07] LABS: BEDSIDE GLUCOSE 280 MG/DL (83-110)
[2017-11-21 20:26] LABS: BEDSIDE GLUCOSE 289 MG/DL (83-110)
[2017-11-21] MEDS: CEPHALEXIN 500 MG CAP PO (20:49)
[2017-11-21] MEDS: LORATADINE 10 MG TAB PO (20:49)
[2017-11-22 06:02] LABS: HEMATOCRIT 34.7 % (42.0-52.0); HEMOGLOBIN 11.4 g/dl (14.0-18.0); MEAN CORPUSCULAR HEMOGLOBIN 27.1 pg (27.0-33.0); MEAN CORPUSCULAR HGB CONC 32.9 g/dl (32.0-36.5); MEAN CORPUSCULAR VOLUME 82.6 fl (80.0-96.0); PLATELET COUNT, AUTOMATED 262 10^3/uL (150-450); RED CELL DISTRIBUTION WIDTH 12.7 % (11.5-14.5)
[2017-11-22 06:20] LABS: ANION GAP 6 MEQ/L (8-16); BLOOD UREA NITROGEN 19 MG/DL (7-18); CALCIUM LEVEL 9.1 MG/DL (8.8-10.2); CARBON DIOXIDE LEVEL 31 MEQ/L (21-32); CHLORIDE LEVEL 100 MEQ/L (98-107); CREATININE FOR GFR 1.12 MG/DL (0.70-1.30); GLOMERULAR FILTRATION RATE > 60.0 (>42); GLUCOSE, FASTING 153 MG/DL (70-100); POTASSIUM SERUM 3.8 MEQ/L (3.5-5.1); SODIUM LEVEL 137 MEQ/L (136-145)
[2017-11-22 07:04] LABS: BEDSIDE GLUCOSE 155 MG/DL (83-110)
[2017-11-22] MEDS: SPIRONOLACTONE 12.5MG PER 1/2 TABLET PO (07:48)
[2017-11-22] MEDS: APIXABAN 5 MG TAB (ELIQUIS) PO (07:48)
[2017-11-22] MEDS: GABAPENTIN 300 MG CAP PO (07:48)
[2017-11-22] MEDS: FENOFIBRATE 145 MG TAB (TRICOR) PO (07:49)
[2017-11-22] MEDS: CARVedilol 3.125 MG TAB PO (07:49)
[2017-11-22] MEDS: MAGNESIUM OXIDE 400 MG TAB (MAG-OX) PO (07:49)
[2017-11-22] MEDS: LACTOBACILLUS ACIDOPHILUS CAP (BACID) PO (07:49)
[2017-11-22] MEDS: BACLOFEN 10 MG TAB PO (07:49)
[2017-11-22] MEDS: FUROSEMIDE 20 MG TAB PO (07:50)
[2017-11-22] MEDS: CEPHALEXIN 500 MG CAP PO (07:50)
[2017-11-22] MEDS: HumaLOG INSULIN (NovoLOG) PER UNIT SC ×2 (07:50→12:28)
[2017-11-22] MEDS: LEVEMIR (INSULIN DETEMIR) 1 UNITS/0.01ML SC (07:51)
[2017-11-22 11:44] LABS: BEDSIDE GLUCOSE 163 MG/DL (83-110)
== END 2017-11-22 13:50 | disposition home health service (06) | DRG 698 ==
LOC: M ICU 11-15 01:11 → M MSPAV 11-17 13:35 → M MS5PR 11-15 20:59 → M ED 17:50 → M ED INP 23:39
DX: T83.511A Infection and inflammatory reaction due to indwelling urethral catheter, initial encounter (principal); G93.41 Metabolic encephalopathy; A41.9 Sepsis, unspecified organism; G82.20 Paraplegia, unspecified; I50.32 Chronic diastolic (congestive) heart failure; N17.9 Acute kidney failure, unspecified; I13.0 Hypertensive heart and chronic kidney disease with heart failure and stage 1 through stage 4 chronic kidney disease, or unspecified chronic kidney disease; D17.79 Benign lipomatous neoplasm of other sites; Z79.899 Other long term (current) drug therapy; Z79.4 Long term (current) use of insulin; G47.33 Obstructive sleep apnea (adult) (pediatric); N40.0 Benign prostatic hyperplasia without lower urinary tract symptoms; G43.909 Migraine, unspecified, not intractable, without status migrainosus; E55.9 Vitamin D deficiency, unspecified; E78.5 Hyperlipidemia, unspecified; I48.91 Unspecified atrial fibrillation; Z96.651 Presence of right artificial knee joint; Z96.641 Presence of right artificial hip joint; N39.0 Urinary tract infection, site not specified; I11.0 Hypertensive heart disease with heart failure; Z88.5 Allergy status to narcotic agent; Z88.2 Allergy status to sulfonamides; Z88.8 Allergy status to other drugs, medicaments and biological substances; N18.9 Chronic kidney disease, unspecified; B96.29 Other Escherichia coli [E. coli] as the cause of diseases classified elsewhere; B96.1 Klebsiella pneumoniae [K. pneumoniae] as the cause of diseases classified elsewhere; N31.9 Neuromuscular dysfunction of bladder, unspecified

== ENCOUNTER → 2017-11-30 | Outpatient (REF) | payer MEDICARE, MEDICAID ==
[2017-11-30 13:33] LABS: ESTIMATED AVERAGE GLUCOSE 174 MG/DL (60-110); HEMOGLOBIN A1c 7.7 %
== END ==
LOC: SKLABADC 09:49
DX: E11.65 Type 2 diabetes mellitus with hyperglycemia (principal)
CPT/HCPCS: 83036

== ENCOUNTER → 2017-12-21 | Outpatient (REF) | payer MEDICARE, MEDICAID, OTHER | LOC: M LAB REF 17:15 | DX: L03.039 Cellulitis of unspecified toe (principal) | CPT/HCPCS: 87077; 87186 ==

== ENCOUNTER → 2018-01-06 | Outpatient (REF) | payer MEDICARE, MEDICAID, OTHER ==
[2018-01-06 10:43] LABS: HEMATOCRIT 37.2 % (42.0-52.0); HEMOGLOBIN 12.2 g/dl (13.5-17.5); MEAN CORPUSCULAR HEMOGLOBIN 27.5 pg (27.0-33.0); MEAN CORPUSCULAR HGB CONC 32.8 g/dl (32.0-36.5); PLATELET COUNT, AUTOMATED 192 10^3/uL (150-450); RED BLOOD COUNT 4.43 10^6/uL (4.30-6.10); RED CELL DISTRIBUTION WIDTH 14.4 % (11.5-14.5); WHITE BLOOD COUNT 6.6 10^3/uL (4.0-10.0)
[2018-01-06 11:12] LABS: ALBUMIN 3.2 GM/DL (3.2-5.2); ALBUMIN/GLOBULIN RATIO 0.78 (1.00-1.93); ALKALINE PHOSPHATASE 78 U/L (45-117); ALT/SGPT 24 U/L (12-78); ANION GAP 8 MEQ/L (8-16); AST/SGOT 21 U/L (7-37); BILIRUBIN,TOTAL 0.3 MG/DL (0.2-1.0); BLOOD UREA NITROGEN 27 MG/DL (7-18); CALCIUM LEVEL 9.3 MG/DL (8.8-10.2); CARBON DIOXIDE LEVEL 26 MEQ/L (21-32); CHLORIDE LEVEL 102 MEQ/L (98-107); CREATININE FOR GFR 1.61 MG/DL (0.70-1.30); GLOMERULAR FILTRATION RATE 45.1 (>42); GLUCOSE, FASTING 188 MG/DL (70-100); MAGNESIUM LEVEL 1.9 MG/DL (1.8-2.4); POTASSIUM SERUM 4.3 MEQ/L (3.5-5.1); SODIUM LEVEL 136 MEQ/L (136-145); TOTAL PROTEIN 7.3 GM/DL (6.4-8.2)
[2018-01-06 11:41] LABS: ESTIMATED AVERAGE GLUCOSE 166 MG/DL (60-110); HEMOGLOBIN A1c 7.4 %
== END ==
LOC: SKLABADC 09:31
DX: N18.3 Chronic kidney disease, stage 3 (moderate) (principal); E13.29 Other specified diabetes mellitus with other diabetic kidney complication; E83.49 Other disorders of magnesium metabolism
CPT/HCPCS: 83735

== ENCOUNTER → 2018-02-02 | Outpatient (REF) | payer MEDICARE, MEDICAID ==
[2018-02-02 13:39] LABS: HEMATOCRIT 43.4 % (42.0-52.0); HEMOGLOBIN 14.1 g/dl (13.5-17.5); MEAN CORPUSCULAR HEMOGLOBIN 27.4 pg (27.0-33.0); MEAN CORPUSCULAR HGB CONC 32.5 g/dl (32.0-36.5); MEAN CORPUSCULAR VOLUME 84.3 fl (80.0-96.0); PLATELET COUNT, AUTOMATED 221 10^3/uL (150-450); RED BLOOD COUNT 5.15 10^6/uL (4.30-6.10); RED CELL DISTRIBUTION WIDTH 14.6 % (11.5-14.5); WHITE BLOOD COUNT 6.8 10^3/uL (4.0-10.0)
[2018-02-02 14:03] LABS: ALBUMIN 3.1 GM/DL (3.2-5.2); ALBUMIN/GLOBULIN RATIO 0.72 (1.00-1.93); ALKALINE PHOSPHATASE 105 U/L (45-117); ALT/SGPT 32 U/L (12-78); ANION GAP 5 MEQ/L (8-16); AST/SGOT 28 U/L (7-37); BILIRUBIN,TOTAL 0.3 MG/DL (0.2-1.0); BLOOD UREA NITROGEN 24 MG/DL (7-18); CALCIUM LEVEL 9.5 MG/DL (8.8-10.2); CARBON DIOXIDE LEVEL 29 MEQ/L (21-32); CHLORIDE LEVEL 98 MEQ/L (98-107); CREATININE FOR GFR 1.29 MG/DL (0.70-1.30); GLOMERULAR FILTRATION RATE 58.3 (>42); GLUCOSE, FASTING 182 MG/DL (70-100); MAGNESIUM LEVEL 2.1 MG/DL (1.8-2.4); POTASSIUM SERUM 4.3 MEQ/L (3.5-5.1); SODIUM LEVEL 132 MEQ/L (136-145); TOTAL PROTEIN 7.4 GM/DL (6.4-8.2)
[2018-02-02 14:38] LABS: ESTIMATED AVERAGE GLUCOSE 160 MG/DL (60-110); HEMOGLOBIN A1c 7.2 %
== END ==
LOC: M SFHCADAM 09:52
DX: N18.3 Chronic kidney disease, stage 3 (moderate) (principal); E13.29 Other specified diabetes mellitus with other diabetic kidney complication; E83.49 Other disorders of magnesium metabolism
CPT/HCPCS: 83735

== ENCOUNTER 2018-02-06 13:03 | Day surgery (SDC) | payer MEDICARE, MEDICAID ==
[2018-02-06 14:22] LABS: BEDSIDE GLUCOSE 157 MG/DL (83-110)
[2018-02-06] MEDS: ISOVUE-300 61% 50ML VIAL (Q9967) As Ordered (15:28)
[2018-02-06] MEDS: AMIODARONE 150MG/3ML INJ (J0282) As Ordered (15:28)
[2018-02-06] MEDS ORDERED: fentaNYL 100 MCG/2 ML INJECTION (J3010) As Ordered (16:41)
[2018-02-06] MEDS ORDERED: MIDAZOLAM INJ 2 MG/2 ML VIAL (J2250) As Ordered (16:41)
[2018-02-06] MEDS ORDERED: PROPOFOL 200 MG/20 ML VIAL As Ordered (16:41)
[2018-02-06] MEDS: ceFAZolin SOD 1 GM in D5W MINI-BAG PLUS 50 ML IV (16:49)
[2018-02-06] MEDS: LIDOCAINE 1% SDV INJ 30 ML VIAL As Ordered (17:35)
[2018-02-06] MEDS ORDERED: DEXTROSE 50% 50 ML SYRINGE IV (18:00)
[2018-02-06] MEDS ORDERED: ANUSOL HC CREAM 30GM TOP (18:00)
[2018-02-06] MEDS ORDERED: GLUCOSE 4 GM CHEW TABLET PO (18:00)
[2018-02-06] MEDS ORDERED: NITROGLYCERIN 0.4 MG SUBL TABLET SL (18:00)
[2018-02-06] MEDS ORDERED: ONDANSETRON 4 MG TAB (S0181) PO (18:00)
[2018-02-06] MEDS ORDERED: GLUCAGON FOR INJ 1 MG VIAL (J1610) SC (18:00)
[2018-02-06 18:07] LABS: BEDSIDE GLUCOSE 124 MG/DL (83-110)
[2018-02-06] MEDS ORDERED: ONDANSETRON 4MG/2ML VIAL (J2405) IV (18:45)
[2018-02-06] MEDS ORDERED: fentaNYL 100 MCG/2 ML INJECTION (J3010) IV (18:45)
[2018-02-06] MEDS: LR 1,000 ML IV (18:45)
[2018-02-06] MEDS ORDERED: NORCO, ANEXSIA 5/325MG TABLET (HYDROcodone/ACETAMINOPHEN) PO (18:45)
[2018-02-06] MEDS: ALBUTEROL SULFATE 2.5 MG/0.5 ML INH NEB SOLN INH ×2 (20:41→23:41)
[2018-02-06] MEDS: DOCUSATE SODIUM 100 MG CAP PO ×2 (21:00→21:25)
[2018-02-06 21:17] LABS: BEDSIDE GLUCOSE 263 MG/DL (83-110)
[2018-02-06] MEDS: MAGNESIUM OXIDE 400 MG TAB (MAG-OX) PO (21:25)
[2018-02-06] MEDS: GABAPENTIN 300 MG CAP PO (21:25)
[2018-02-06] MEDS: BACLOFEN 10 MG TAB PO (21:25)
[2018-02-06] MEDS: LEVEMIR (INSULIN DETEMIR) 1 UNITS/0.01ML SC (21:30)
[2018-02-06] MEDS: CARVedilol 3.125 MG TAB PO (21:30)
[2018-02-06] MEDS: HumaLOG INSULIN (NovoLOG) PER UNIT SC (21:31)
[2018-02-06] MEDS ORDERED: ceFAZolin 1GM INJ (J0690 PER 500MG) IM (23:55)
[2018-02-07] MEDS ORDERED: ceFAZolin 1GM INJ (J0690 PER 500MG) IV ×2 (01:02→07:55)
[2018-02-07] MEDS: ceFAZolin SOD 1 GM in D5W MINI-BAG PLUS 50 ML IV ×3 (01:16→16:45)
[2018-02-07] MEDS: PERCOCET 5MG/325MG TAB PO ×3 (03:21→18:50)
[2018-02-07] MEDS: ALBUTEROL SULFATE 2.5 MG/0.5 ML INH NEB SOLN INH ×3 (03:48→12:00)
[2018-02-07] MEDS: LEVEMIR (INSULIN DETEMIR) 1 UNITS/0.01ML SC (06:24)
[2018-02-07 07:53] LABS: BEDSIDE GLUCOSE 141 MG/DL (83-110)
[2018-02-07] MEDS: MAGNESIUM OXIDE 400 MG TAB (MAG-OX) PO (08:31)
[2018-02-07] MEDS: oxyBUTYnin *DITROPAN XL* 5 MG TABCR PO (08:32)
[2018-02-07] MEDS: DOCUSATE SODIUM 100 MG CAP PO (08:32)
[2018-02-07] MEDS: GABAPENTIN 300 MG CAP PO ×2 (08:32→16:44)
[2018-02-07] MEDS: BACLOFEN 10 MG TAB PO ×2 (08:32→16:44)
[2018-02-07] MEDS: CARVedilol 3.125 MG TAB PO (08:34)
[2018-02-07] MEDS: FUROSEMIDE 20 MG TAB PO (08:34)
[2018-02-07] MEDS: HumaLOG INSULIN (NovoLOG) PER UNIT SC ×3 (08:35→16:57)
[2018-02-07] MEDS ORDERED: SOLIFENACIN 5 MG TAB PO ×2 (09:00→21:00)
[2018-02-07] MEDS: SPIRONOLACTONE 12.5MG PER 1/2 TABLET PO (09:49)
[2018-02-07 11:48] LABS: BEDSIDE GLUCOSE 96 MG/DL (83-110)
[2018-02-07] MEDS: ACETAMINOPHEN TAB 650MG DOSE (2X325MG) PO (12:42)
[2018-02-07 16:44] LABS: BEDSIDE GLUCOSE 206 MG/DL (83-110)
== END 2018-02-07 19:00 | disposition home health service (06) ==
LOC: M SDC 13:03 → M PCU 18:52
DX: I48.2 Chronic atrial fibrillation (principal); I44.2 Atrioventricular block, complete; I50.32 Chronic diastolic (congestive) heart failure; I11.0 Hypertensive heart disease with heart failure; E11.9 Type 2 diabetes mellitus without complications; Z86.73 Personal history of transient ischemic attack (TIA), and cerebral infarction without residual deficits; Z79.02 Long term (current) use of antithrombotics/antiplatelets; Z79.4 Long term (current) use of insulin; Z79.899 Other long term (current) drug therapy; Z88.2 Allergy status to sulfonamides; Z88.8 Allergy status to other drugs, medicaments and biological substances
CPT/HCPCS: 33207

== ENCOUNTER 2018-02-10 07:48 | Inpatient (IN) | payer MEDICARE, MEDICAID ==
[2018-02-10] MEDS: LIDOCAINE W/EPINEPHRINE 1% 20ML VIAL As Ordered (07:07)
[2018-02-10 09:00] LABS: BEDSIDE GLUCOSE 112 MG/DL (83-110)
[2018-02-10] MEDS: LR 1,000 ML IV ×2 (09:11→16:00)
[2018-02-10] MEDS: BUPIVACAINE LIPOSOME/PF 1.3% 20 ML VIAL (13.3MG/ML)(EXPAREL) As Ordered (12:16)
[2018-02-10] MEDS: BUPIVACAINE HCL 0.5% 10 ML VIAL As Ordered (12:16)
[2018-02-10] MEDS: ceFAZolin SOD 1 GM in D5W MINI-BAG PLUS 50 ML IV (12:40)
[2018-02-10 13:08] LABS: iSTAT CA++ 5.5 MG/DL (4.5-5.3)
[2018-02-10] MEDS ORDERED: PROPOFOL 200 MG/20 ML VIAL As Ordered (13:10)
[2018-02-10] MEDS ORDERED: GLYCOPYRROLATE INJ 0.2 MG/ML 2 ML VIAL As Ordered (13:10)
[2018-02-10] MEDS ORDERED: LIDOCAINE 2% INJ 100 MG/5 ML SDV (FOR ANES.) As Ordered (13:10)
[2018-02-10] MEDS ORDERED: fentaNYL 250 MCG/5 ML INJECTION (J3010) As Ordered (13:10)
[2018-02-10] MEDS ORDERED: ROCURONIUM BROMIDE 50 MG/5 ML VIAL As Ordered ×2 (13:10→13:14)
[2018-02-10] MEDS ORDERED: METOCLOPRAMIDE INJ 10MG/2ML VIAL (J2765) As Ordered (13:10)
[2018-02-10] MEDS ORDERED: MIDAZOLAM INJ 2 MG/2 ML VIAL (J2250) As Ordered (13:10)
[2018-02-10] MEDS ORDERED: dexameTHASONE 4 MG/ML 1ML VIAL (J1100) As Ordered (13:10)
[2018-02-10] MEDS ORDERED: NEOSTIGMINE 10 MG/10 ML VIAL (J2710) As Ordered (13:10)
[2018-02-10] MEDS ORDERED: ePHEDrine SULFATE 25 MG/5 ML(5MG/ML) SYRINGE As Ordered ×2 (13:10→13:33)
[2018-02-10] MEDS ORDERED: ONDANSETRON 4MG/2ML VIAL (J2405) As Ordered (13:10)
[2018-02-10] MEDS ORDERED: PHENYLephrine HCL 500 MCG/5 ML (100MCG/ML) SYRINGE (J2370) As Ordered (13:18)
[2018-02-10] MEDS ORDERED: PHENYLEPHRINE INJ 10MG/ML VIAL (J2370) As Ordered (13:37)
[2018-02-10] MEDS ORDERED: SUGAMMADEX SODIUM 500 MG/5 ML VIAL (BRIDION) As Ordered (15:12)
[2018-02-10] MEDS ORDERED: CLOTRIMAZOLE 1% TOPICAL CREAM 30GM TOP (15:30)
[2018-02-10] MEDS ORDERED: NYSTATIN 100,000 UNITS/GM TOPICAL PWD 15 GM TOP (15:30)
[2018-02-10] MEDS ORDERED: ACETAMINOPHEN TAB 650MG DOSE (2X325MG) PO (15:30)
[2018-02-10 15:46] LABS: BEDSIDE GLUCOSE 155 MG/DL (83-110)
[2018-02-10] MEDS ORDERED: LEVALBUTEROL 1.25 MG/0.5 ML CONCENTRATE NEB As Ordered (15:54)
[2018-02-10] MEDS: fentaNYL 100 MCG/2 ML INJECTION (J3010) IV ×2 (15:58→16:20)
[2018-02-10] MEDS: BACLOFEN 10 MG TAB PO ×2 (16:00→22:18)
[2018-02-10] MEDS ORDERED: METOCLOPRAMIDE INJ 10MG/2ML VIAL (J2765) IV (16:00)
[2018-02-10] MEDS: IPRATROPIUM 0.5MG/ALBUTEROL 2.5MG INH SOL UD 3ML (DUONEB)(J7620) NEB ×2 (16:00→20:02)
[2018-02-10] MEDS ORDERED: ONDANSETRON 4MG/2ML VIAL (J2405) IV (16:00)
[2018-02-10] MEDS: LEVALBUTEROL 1.25 MG/0.5 ML CONCENTRATE NEB INH (16:00)
[2018-02-10] MEDS ORDERED: PERCOCET 5MG/325MG TAB PO (16:00)
[2018-02-10] MEDS: GABAPENTIN 300 MG CAP PO ×2 (16:00→22:18)
[2018-02-10] MEDS: D5W/LR 1,000 ML IV (17:09)
[2018-02-10] MEDS: ONDANSETRON 4MG/2ML VIAL (J2405) IV (17:19)
[2018-02-10] MEDS: VANCOMYCIN HCL 1,000 MG, VIAL MATE ADAPTER 1 EACH in D5W/0.2% SODIUM CHLORIDE 250 ML IV ×2 (17:21→19:00)
[2018-02-10 17:27] LABS: BEDSIDE GLUCOSE 181 MG/DL (83-110)
[2018-02-10] MEDS: HumaLOG INSULIN (NovoLOG) PER UNIT SC ×2 (18:05→22:18)
[2018-02-10 18:25] LABS: ANION GAP 6 MEQ/L (8-16); BLOOD UREA NITROGEN 25 MG/DL (7-18); CALCIUM LEVEL 9.1 MG/DL (8.8-10.2); CARBON DIOXIDE LEVEL 29 MEQ/L (21-32); CHLORIDE LEVEL 100 MEQ/L (98-107); CREATININE FOR GFR 1.24 MG/DL (0.70-1.30); GLOMERULAR FILTRATION RATE > 60.0 (>42); GLUCOSE, FASTING 197 MG/DL (70-100); POTASSIUM SERUM 4.6 MEQ/L (3.5-5.1); SODIUM LEVEL 135 MEQ/L (136-145)
[2018-02-10 20:12] LABS: BEDSIDE GLUCOSE 253 MG/DL (83-110)
[2018-02-10] MEDS: PANTOPRAZOLE 40MG INJ (PROTONIX) (C9113) IV (22:17)
[2018-02-10] MEDS: LORATADINE 10 MG TAB PO (22:17)
[2018-02-10] MEDS: MAGNESIUM OXIDE 400 MG TAB (MAG-OX) PO (22:17)
[2018-02-10] MEDS: CARVedilol 3.125 MG TAB PO (22:18)
[2018-02-10] MEDS: LACTOBACILLUS ACIDOPHILUS CAP (BACID) PO (22:18)
[2018-02-10] MEDS: SOLIFENACIN 5 MG TAB PO (22:28)
[2018-02-11] MEDS: D5W/LR 1,000 ML IV ×2 (03:47→08:25)
[2018-02-11] MEDS: NORCO, ANEXSIA 5/325MG TABLET (HYDROcodone/ACETAMINOPHEN) PO ×2 (04:42→13:49)
[2018-02-11 06:32] LABS: HEMATOCRIT 34.7 % (42.0-52.0); HEMOGLOBIN 11.5 g/dl (13.5-17.5); MEAN CORPUSCULAR HEMOGLOBIN 27.4 pg (27.0-33.0); MEAN CORPUSCULAR HGB CONC 33.1 g/dl (32.0-36.5); MEAN CORPUSCULAR VOLUME 82.6 fl (80.0-96.0); PLATELET COUNT, AUTOMATED 216 10^3/uL (150-450); RED CELL DISTRIBUTION WIDTH 14.6 % (11.5-14.5)
[2018-02-11 06:46] LABS: ANION GAP 5 MEQ/L (8-16); BLOOD UREA NITROGEN 25 MG/DL (7-18); CALCIUM LEVEL 9.1 MG/DL (8.8-10.2); CARBON DIOXIDE LEVEL 29 MEQ/L (21-32); CHLORIDE LEVEL 99 MEQ/L (98-107); CREATININE FOR GFR 1.34 MG/DL (0.70-1.30); GLOMERULAR FILTRATION RATE 55.8 (>42); GLUCOSE, FASTING 263 MG/DL (70-100); POTASSIUM SERUM 4.6 MEQ/L (3.5-5.1); SODIUM LEVEL 133 MEQ/L (136-145)
[2018-02-11] MEDS: IPRATROPIUM 0.5MG/ALBUTEROL 2.5MG INH SOL UD 3ML (DUONEB)(J7620) NEB ×4 (08:07→19:43)
[2018-02-11] MEDS: FENOFIBRATE 145 MG TAB (TRICOR) PO (08:16)
[2018-02-11] MEDS: LACTOBACILLUS ACIDOPHILUS CAP (BACID) PO ×2 (08:16→21:55)
[2018-02-11] MEDS: BACLOFEN 10 MG TAB PO ×3 (08:16→21:56)
[2018-02-11] MEDS: CARVedilol 3.125 MG TAB PO ×2 (08:17→21:55)
[2018-02-11] MEDS: GABAPENTIN 300 MG CAP PO ×3 (08:23→21:56)
[2018-02-11] MEDS: MAGNESIUM OXIDE 400 MG TAB (MAG-OX) PO ×2 (08:23→21:56)
[2018-02-11] MEDS: FUROSEMIDE 20 MG TAB PO (08:23)
[2018-02-11] MEDS: HumaLOG INSULIN (NovoLOG) PER UNIT SC ×4 (08:25→21:57)
[2018-02-11] MEDS: traMADol 50 MG TAB PO ×2 (08:55→22:05)
[2018-02-11] MEDS: APIXABAN 5 MG TAB (ELIQUIS) PO ×2 (09:00→21:55)
[2018-02-11 11:45] LABS: BEDSIDE GLUCOSE 168 MG/DL (83-110)
[2018-02-11] MEDS: VANCOMYCIN HCL 1,000 MG, VIAL MATE ADAPTER 1 EACH in D5W/0.2% SODIUM CHLORIDE 250 ML IV (13:28)
[2018-02-11 16:33] LABS: BEDSIDE GLUCOSE 219 MG/DL (83-110)
[2018-02-11 20:27] LABS: BEDSIDE GLUCOSE 290 MG/DL (83-110)
[2018-02-11] MEDS: LORATADINE 10 MG TAB PO (21:55)
[2018-02-11] MEDS: SOLIFENACIN 5 MG TAB PO (21:56)
[2018-02-11] MEDS: PANTOPRAZOLE 40MG INJ (PROTONIX) (C9113) IV (21:57)
[2018-02-12 06:22] LABS: HEMATOCRIT 34.2 % (42.0-52.0); HEMOGLOBIN 11.2 g/dl (13.5-17.5); MEAN CORPUSCULAR HEMOGLOBIN 27.5 pg (27.0-33.0); MEAN CORPUSCULAR HGB CONC 32.7 g/dl (32.0-36.5); PLATELET COUNT, AUTOMATED 168 10^3/uL (150-450); RED BLOOD COUNT 4.07 10^6/uL (4.30-6.10); RED CELL DISTRIBUTION WIDTH 14.6 % (11.5-14.5); WHITE BLOOD COUNT 8.4 10^3/uL (4.0-10.0)
[2018-02-12] MEDS: VANCOMYCIN HCL 1,000 MG, VIAL MATE ADAPTER 1 EACH in D5W/0.2% SODIUM CHLORIDE 250 ML IV (06:31)
[2018-02-12 06:32] LABS: ANION GAP 3 MEQ/L (8-16); BLOOD UREA NITROGEN 22 MG/DL (7-18); CALCIUM LEVEL 9.1 MG/DL (8.8-10.2); CARBON DIOXIDE LEVEL 32 MEQ/L (21-32); CHLORIDE LEVEL 96 MEQ/L (98-107); GLOMERULAR FILTRATION RATE 57.8 (>42); GLUCOSE, FASTING 245 MG/DL (70-100); POTASSIUM SERUM 4.4 MEQ/L (3.5-5.1); SODIUM LEVEL 131 MEQ/L (136-145)
[2018-02-12] MEDS: FENOFIBRATE 145 MG TAB (TRICOR) PO (07:28)
[2018-02-12] MEDS: MAGNESIUM OXIDE 400 MG TAB (MAG-OX) PO ×2 (07:28→20:51)
[2018-02-12] MEDS: BACLOFEN 10 MG TAB PO ×3 (07:28→20:50)
[2018-02-12] MEDS: APIXABAN 5 MG TAB (ELIQUIS) PO ×2 (07:28→20:50)
[2018-02-12] MEDS: LACTOBACILLUS ACIDOPHILUS CAP (BACID) PO ×2 (07:28→20:49)
[2018-02-12] MEDS: GABAPENTIN 300 MG CAP PO ×3 (07:28→20:51)
[2018-02-12] MEDS: HumaLOG INSULIN (NovoLOG) PER UNIT SC ×4 (07:29→20:51)
[2018-02-12] MEDS: FUROSEMIDE 20 MG TAB PO (07:29)
[2018-02-12] MEDS: CARVedilol 3.125 MG TAB PO ×2 (07:29→20:50)
[2018-02-12] MEDS: IPRATROPIUM 0.5MG/ALBUTEROL 2.5MG INH SOL UD 3ML (DUONEB)(J7620) NEB ×4 (08:00→19:34)
[2018-02-12 11:57] LABS: BEDSIDE GLUCOSE 305 MG/DL (83-110)
[2018-02-12] MEDS: traMADol 50 MG TAB PO (13:42)
[2018-02-12 16:35] LABS: BEDSIDE GLUCOSE 172 MG/DL (83-110)
[2018-02-12 20:01] LABS: BEDSIDE GLUCOSE 195 MG/DL (83-110)
[2018-02-12] MEDS: LORATADINE 10 MG TAB PO (20:49)
[2018-02-12] MEDS: PANTOPRAZOLE 40MG INJ (PROTONIX) (C9113) IV (20:51)
[2018-02-12] MEDS: SOLIFENACIN 5 MG TAB PO (20:51)
[2018-02-13] MEDS: VANCOMYCIN HCL 1,000 MG, VIAL MATE ADAPTER 1 EACH in D5W/0.2% SODIUM CHLORIDE 250 ML IV ×2 (01:22→20:08)
[2018-02-13 06:40] LABS: HEMATOCRIT 34.5 % (42.0-52.0); HEMOGLOBIN 11.4 g/dl (13.5-17.5); MEAN CORPUSCULAR HEMOGLOBIN 27.5 pg (27.0-33.0); MEAN CORPUSCULAR VOLUME 83.3 fl (80.0-96.0); PLATELET COUNT, AUTOMATED 186 10^3/uL (150-450); RED BLOOD COUNT 4.14 10^6/uL (4.30-6.10); RED CELL DISTRIBUTION WIDTH 14.6 % (11.5-14.5); WHITE BLOOD COUNT 9.2 10^3/uL (4.0-10.0)
[2018-02-13 07:05] LABS: ANION GAP 3 MEQ/L (8-16); BLOOD UREA NITROGEN 20 MG/DL (7-18); CALCIUM LEVEL 9.3 MG/DL (8.8-10.2); CARBON DIOXIDE LEVEL 32 MEQ/L (21-32); CHLORIDE LEVEL 94 MEQ/L (98-107); CREATININE FOR GFR 1.31 MG/DL (0.70-1.30); GLOMERULAR FILTRATION RATE 57.3 (>42); GLUCOSE, FASTING 271 MG/DL (70-100); POTASSIUM SERUM 4.8 MEQ/L (3.5-5.1); SODIUM LEVEL 129 MEQ/L (136-145)
[2018-02-13] MEDS: IPRATROPIUM 0.5MG/ALBUTEROL 2.5MG INH SOL UD 3ML (DUONEB)(J7620) NEB ×4 (07:54→20:00)
[2018-02-13] MEDS: SENOKOT S TAB PO ×2 (09:03→21:00)
[2018-02-13] MEDS: MAGNESIUM OXIDE 400 MG TAB (MAG-OX) PO ×2 (09:03→22:28)
[2018-02-13] MEDS: BACLOFEN 10 MG TAB PO ×3 (09:03→22:28)
[2018-02-13] MEDS: FUROSEMIDE 20 MG TAB PO (09:03)
[2018-02-13] MEDS: APIXABAN 5 MG TAB (ELIQUIS) PO ×2 (09:03→22:27)
[2018-02-13] MEDS: CARVedilol 3.125 MG TAB PO ×2 (09:04→22:29)
[2018-02-13] MEDS: FENOFIBRATE 145 MG TAB (TRICOR) PO (09:04)
[2018-02-13] MEDS: GABAPENTIN 300 MG CAP PO ×3 (09:04→22:27)
[2018-02-13] MEDS: LACTOBACILLUS ACIDOPHILUS CAP (BACID) PO ×2 (09:04→21:00)
[2018-02-13] MEDS: HumaLOG INSULIN (NovoLOG) PER UNIT SC ×4 (09:05→21:00)
[2018-02-13 11:46] LABS: BEDSIDE GLUCOSE 260 MG/DL (83-110)
[2018-02-13] MEDS: BISACODYL 10 MG SUPP PR (12:23)
[2018-02-13 16:38] LABS: BEDSIDE GLUCOSE 144 MG/DL (83-110)
[2018-02-13] MEDS: ONDANSETRON 4MG/2ML VIAL (J2405) IV (17:38)
[2018-02-13 18:33] LABS: VANCOMYCIN LEVEL TROUGH 19.1 UG/ML (10.0-20.0)
[2018-02-13 20:44] LABS: BEDSIDE GLUCOSE 250 MG/DL (83-110)
[2018-02-13] MEDS: LORATADINE 10 MG TAB PO (21:00)
[2018-02-13 21:06] LABS: ALBUMIN 2.9 GM/DL (3.2-5.2); ALBUMIN/GLOBULIN RATIO 0.76 (1.00-1.93); ALKALINE PHOSPHATASE 79 U/L (45-117); ALT/SGPT 15 U/L (12-78); ANION GAP 8 MEQ/L (8-16); AST/SGOT 16 U/L (7-37); BLOOD UREA NITROGEN 22 MG/DL (7-18); CALCIUM LEVEL 9.3 MG/DL (8.8-10.2); CARBON DIOXIDE LEVEL 31 MEQ/L (21-32); CHLORIDE LEVEL 89 MEQ/L (98-107); CREATININE FOR GFR 1.27 MG/DL (0.70-1.30); GLOMERULAR FILTRATION RATE 59.3 (>42); GLUCOSE, FASTING 231 MG/DL (70-100); POTASSIUM SERUM 4.8 MEQ/L (3.5-5.1); SODIUM LEVEL 128 MEQ/L (136-145); TOTAL PROTEIN 6.7 GM/DL (6.4-8.2)
[2018-02-13] MEDS: PANTOPRAZOLE 40MG INJ (PROTONIX) (C9113) IV (22:27)
[2018-02-13] MEDS: SOLIFENACIN 5 MG TAB PO (22:28)
[2018-02-13 22:47] LABS: OSMOLALITY SERUM 285 MOSM/KG (280-301)
[2018-02-13 23:00] LABS: NT-PRO BNP 2524 PG/ML (<125)
[2018-02-14 00:21] LABS: CHLORIDE,RANDOM URINE 82 MEQ/L
[2018-02-14 00:21] LABS: SODIUM,RANDOM URINE 60 MEQ/L
[2018-02-14 00:32] LABS: BACTERIA, URINE AUTO NEGATIVE (NEGATIVE); MUCUS, URINE SMALL (NEGATIVE); RBC, URINE AUTO 26 /HPF (0-3); SQUAMOUS EPITHELIAL CELL UR AU 0 /HPF (0-6); WBC, URINE AUTO 9 /HPF (0-3)
[2018-02-14 00:33] LABS: APPEARANCE, URINE CLEAR (CLEAR); BILIRUBIN, URINE AUTO NEGATIVE (NEGATIVE); BLOOD, URINE BLOOD 2+ (NEGATIVE); COLOR, URINE YELLOW (YELLOW); GLUCOSE, URINE (UA) AUTO 3+ mg/dL (NEGATIVE); KETONE, URINE AUTO TRACE mg/dL (NEGATIVE); LEUKOCYTE ESTERASE, URINE AUTO TRACE (NEGATIVE); NITRITE, URINE AUTO POSITIVE (NEGATIVE); PROTEIN, URINE AUTO 2+ mg/dL (NEGATIVE); SPECIFIC GRAVITY URINE AUTO 1.011 (1.002-1.035)
[2018-02-14 06:32] LABS: HEMATOCRIT 35.5 % (42.0-52.0); HEMOGLOBIN 11.8 g/dl (13.5-17.5); MEAN CORPUSCULAR HEMOGLOBIN 27.5 pg (27.0-33.0); MEAN CORPUSCULAR HGB CONC 33.2 g/dl (32.0-36.5); MEAN CORPUSCULAR VOLUME 82.8 fl (80.0-96.0); PLATELET COUNT, AUTOMATED 203 10^3/uL (150-450); RED BLOOD COUNT 4.29 10^6/uL (4.30-6.10); RED CELL DISTRIBUTION WIDTH 14.3 % (11.5-14.5); WHITE BLOOD COUNT 9.2 10^3/uL (4.0-10.0)
[2018-02-14 06:46] LABS: ANION GAP 6 MEQ/L (8-16); BLOOD UREA NITROGEN 23 MG/DL (7-18); CALCIUM LEVEL 9.3 MG/DL (8.8-10.2); CARBON DIOXIDE LEVEL 30 MEQ/L (21-32); CHLORIDE LEVEL 91 MEQ/L (98-107); CREATININE FOR GFR 1.23 MG/DL (0.70-1.30); GLOMERULAR FILTRATION RATE > 60.0 (>42); GLUCOSE, FASTING 228 MG/DL (70-100); POTASSIUM SERUM 4.5 MEQ/L (3.5-5.1); SODIUM LEVEL 127 MEQ/L (136-145)
[2018-02-14] MEDS: IPRATROPIUM 0.5MG/ALBUTEROL 2.5MG INH SOL UD 3ML (DUONEB)(J7620) NEB ×4 (07:17→20:37)
[2018-02-14] MEDS: HumaLOG INSULIN (NovoLOG) PER UNIT SC ×4 (08:24→21:18)
[2018-02-14] MEDS: SENOKOT S TAB PO ×2 (08:26→21:17)
[2018-02-14] MEDS: MAGNESIUM OXIDE 400 MG TAB (MAG-OX) PO ×2 (08:26→21:16)
[2018-02-14] MEDS: CARVedilol 3.125 MG TAB PO ×2 (08:26→21:17)
[2018-02-14] MEDS: LACTOBACILLUS ACIDOPHILUS CAP (BACID) PO ×2 (08:27→21:16)
[2018-02-14] MEDS: FENOFIBRATE 145 MG TAB (TRICOR) PO (08:27)
[2018-02-14] MEDS: BACLOFEN 10 MG TAB PO ×3 (08:27→21:16)
[2018-02-14] MEDS: FUROSEMIDE 20 MG TAB PO (08:27)
[2018-02-14] MEDS: APIXABAN 5 MG TAB (ELIQUIS) PO ×2 (08:27→21:17)
[2018-02-14] MEDS: GABAPENTIN 300 MG CAP PO ×3 (08:27→21:16)
[2018-02-14 11:33] LABS: BEDSIDE GLUCOSE 193 MG/DL (83-110)
[2018-02-14] MEDS: VANCOMYCIN HCL 1,000 MG, VIAL MATE ADAPTER 1 EACH in D5W/0.2% SODIUM CHLORIDE 250 ML IV (13:32)
[2018-02-14] MEDS: ONDANSETRON 4MG/2ML VIAL (J2405) IV (16:11)
[2018-02-14 16:30] LABS: BEDSIDE GLUCOSE 270 MG/DL (83-110)
[2018-02-14 18:45] LABS: FREE T4 1.42 NG/DL (0.76-1.46); THYROID STIMULATING HORMONE 0.878 uIU/ML (0.358-3.740)
[2018-02-14 20:43] LABS: BEDSIDE GLUCOSE 266 MG/DL (83-110)
[2018-02-14] MEDS: SOLIFENACIN 5 MG TAB PO (21:16)
[2018-02-14] MEDS: LORATADINE 10 MG TAB PO (21:17)
[2018-02-14] MEDS: PANTOPRAZOLE 40MG INJ (PROTONIX) (C9113) IV (21:17)
[2018-02-14] MEDS: SIMETHICONE 80 MG CHEW TAB PO (22:04)
[2018-02-15] MEDS: NS 1,000 ML IV ×2 (03:26→13:02)
[2018-02-15 06:40] LABS: HEMOGLOBIN 11.3 g/dl (13.5-17.5); MEAN CORPUSCULAR HEMOGLOBIN 27.3 pg (27.0-33.0); MEAN CORPUSCULAR HGB CONC 33.2 g/dl (32.0-36.5); MEAN CORPUSCULAR VOLUME 82.1 fl (80.0-96.0); PLATELET COUNT, AUTOMATED 212 10^3/uL (150-450); RED BLOOD COUNT 4.14 10^6/uL (4.30-6.10); RED CELL DISTRIBUTION WIDTH 14.2 % (11.5-14.5); WHITE BLOOD COUNT 9.4 10^3/uL (4.0-10.0)
[2018-02-15 06:54] LABS: ANION GAP 7 MEQ/L (8-16); BLOOD UREA NITROGEN 22 MG/DL (7-18); CALCIUM LEVEL 8.6 MG/DL (8.8-10.2); CARBON DIOXIDE LEVEL 31 MEQ/L (21-32); CHLORIDE LEVEL 89 MEQ/L (98-107); CREATININE FOR GFR 1.25 MG/DL (0.70-1.30); GLOMERULAR FILTRATION RATE > 60.0 (>42); GLUCOSE, FASTING 247 MG/DL (70-100); POTASSIUM SERUM 4.4 MEQ/L (3.5-5.1); SODIUM LEVEL 127 MEQ/L (136-145)
[2018-02-15] MEDS: VANCOMYCIN HCL 1,000 MG, VIAL MATE ADAPTER 1 EACH in D5W/0.2% SODIUM CHLORIDE 250 ML IV (07:14)
[2018-02-15 07:23] LABS: CORTISOL AM 18.6 UG/DL (4.3-22.4)
[2018-02-15] MEDS: IPRATROPIUM 0.5MG/ALBUTEROL 2.5MG INH SOL UD 3ML (DUONEB)(J7620) NEB ×4 (08:00→19:34)
[2018-02-15] MEDS: MAGNESIUM OXIDE 400 MG TAB (MAG-OX) PO ×2 (08:50→21:40)
[2018-02-15] MEDS: GABAPENTIN 300 MG CAP PO ×3 (08:50→21:37)
[2018-02-15] MEDS: SIMETHICONE 80 MG CHEW TAB PO ×4 (08:50→21:38)
[2018-02-15] MEDS: LACTOBACILLUS ACIDOPHILUS CAP (BACID) PO ×2 (08:50→21:40)
[2018-02-15] MEDS: APIXABAN 5 MG TAB (ELIQUIS) PO ×2 (08:50→21:37)
[2018-02-15] MEDS: FENOFIBRATE 145 MG TAB (TRICOR) PO (08:50)
[2018-02-15] MEDS: SENOKOT S TAB PO ×2 (08:51→21:41)
[2018-02-15] MEDS: CARVedilol 3.125 MG TAB PO ×2 (08:51→21:40)
[2018-02-15] MEDS: BISACODYL 10 MG SUPP PR (08:54)
[2018-02-15] MEDS: BACLOFEN 10 MG TAB PO ×3 (08:54→21:37)
[2018-02-15] MEDS: HumaLOG INSULIN (NovoLOG) PER UNIT SC ×4 (08:55→21:41)
[2018-02-15 11:28] LABS: BEDSIDE GLUCOSE 298 MG/DL (83-110)
[2018-02-15 12:47] LABS: ANION GAP 5 MEQ/L (8-16); BLOOD UREA NITROGEN 22 MG/DL (7-18); CALCIUM LEVEL 8.9 MG/DL (8.8-10.2); CARBON DIOXIDE LEVEL 31 MEQ/L (21-32); CHLORIDE LEVEL 90 MEQ/L (98-107); CREATININE FOR GFR 1.28 MG/DL (0.70-1.30); GLOMERULAR FILTRATION RATE 58.8 (>42); GLUCOSE, FASTING 305 MG/DL (70-100); POTASSIUM SERUM 4.5 MEQ/L (3.5-5.1); SODIUM LEVEL 126 MEQ/L (136-145)
[2018-02-15 16:19] LABS: BEDSIDE GLUCOSE 320 MG/DL (83-110)
[2018-02-15 19:58] LABS: BEDSIDE GLUCOSE 230 MG/DL (83-110)
[2018-02-15] MEDS: PANTOPRAZOLE 40MG INJ (PROTONIX) (C9113) IV (21:36)
[2018-02-15] MEDS: SOLIFENACIN 5 MG TAB PO (21:37)
[2018-02-15] MEDS: LORATADINE 10 MG TAB PO (21:41)
[2018-02-15] MEDS: LEVEMIR (INSULIN DETEMIR) 1 UNITS/0.01ML SC (21:42)
[2018-02-15 21:45] LABS: ANION GAP 5 MEQ/L (8-16); BLOOD UREA NITROGEN 20 MG/DL (7-18); CALCIUM LEVEL 8.5 MG/DL (8.8-10.2); CARBON DIOXIDE LEVEL 32 MEQ/L (21-32); CHLORIDE LEVEL 91 MEQ/L (98-107); CREATININE FOR GFR 1.34 MG/DL (0.70-1.30); GLOMERULAR FILTRATION RATE 55.8 (>42); GLUCOSE, FASTING 272 MG/DL (70-100); POTASSIUM SERUM 4.3 MEQ/L (3.5-5.1); SODIUM LEVEL 128 MEQ/L (136-145)
[2018-02-16] MEDS: VANCOMYCIN HCL 1,000 MG, VIAL MATE ADAPTER 1 EACH in D5W/0.2% SODIUM CHLORIDE 250 ML IV ×2 (01:53→18:42)
[2018-02-16 05:54] LABS: HEMATOCRIT 31.9 % (42.0-52.0); HEMOGLOBIN 10.7 g/dl (13.5-17.5); MEAN CORPUSCULAR HEMOGLOBIN 27.7 pg (27.0-33.0); MEAN CORPUSCULAR HGB CONC 33.5 g/dl (32.0-36.5); MEAN CORPUSCULAR VOLUME 82.6 fl (80.0-96.0); PLATELET COUNT, AUTOMATED 200 10^3/uL (150-450); RED BLOOD COUNT 3.86 10^6/uL (4.30-6.10); RED CELL DISTRIBUTION WIDTH 14.3 % (11.5-14.5); WHITE BLOOD COUNT 7.9 10^3/uL (4.0-10.0)
[2018-02-16 06:10] LABS: ANION GAP 7 MEQ/L (8-16); BLOOD UREA NITROGEN 19 MG/DL (7-18); CALCIUM LEVEL 8.7 MG/DL (8.8-10.2); CARBON DIOXIDE LEVEL 31 MEQ/L (21-32); CHLORIDE LEVEL 91 MEQ/L (98-107); CREATININE FOR GFR 1.24 MG/DL (0.70-1.30); GLOMERULAR FILTRATION RATE > 60.0 (>42); GLUCOSE, FASTING 250 MG/DL (70-100); POTASSIUM SERUM 4.2 MEQ/L (3.5-5.1); SODIUM LEVEL 129 MEQ/L (136-145)
[2018-02-16] MEDS: BACLOFEN 10 MG TAB PO ×3 (07:59→21:00)
[2018-02-16] MEDS: GABAPENTIN 300 MG CAP PO ×3 (07:59→21:00)
[2018-02-16] MEDS: APIXABAN 5 MG TAB (ELIQUIS) PO ×2 (08:00→21:00)
[2018-02-16] MEDS: MAGNESIUM OXIDE 400 MG TAB (MAG-OX) PO ×2 (08:00→21:00)
[2018-02-16] MEDS: FENOFIBRATE 145 MG TAB (TRICOR) PO (08:00)
[2018-02-16] MEDS: SENOKOT S TAB PO ×2 (08:00→21:00)
[2018-02-16] MEDS: SIMETHICONE 80 MG CHEW TAB PO ×4 (08:00→21:00)
[2018-02-16] MEDS: LACTOBACILLUS ACIDOPHILUS CAP (BACID) PO ×2 (08:00→21:00)
[2018-02-16] MEDS: CARVedilol 3.125 MG TAB PO ×2 (08:02→21:00)
[2018-02-16] MEDS: HumaLOG INSULIN (NovoLOG) PER UNIT SC ×4 (08:02→21:00)
[2018-02-16] MEDS: BISACODYL 10 MG SUPP PR (08:23)
[2018-02-16] MEDS: IPRATROPIUM 0.5MG/ALBUTEROL 2.5MG INH SOL UD 3ML (DUONEB)(J7620) NEB ×4 (11:29→21:17)
[2018-02-16 11:37] LABS: BEDSIDE GLUCOSE 191 MG/DL (83-110)
[2018-02-16 16:41] LABS: BEDSIDE GLUCOSE 141 MG/DL (83-110)
[2018-02-16 18:36] LABS: ANION GAP 4 MEQ/L (8-16); BLOOD UREA NITROGEN 18 MG/DL (7-18); CALCIUM LEVEL 9.5 MG/DL (8.8-10.2); CARBON DIOXIDE LEVEL 36 MEQ/L (21-32); CHLORIDE LEVEL 91 MEQ/L (98-107); CREATININE FOR GFR 1.24 MG/DL (0.70-1.30); GLOMERULAR FILTRATION RATE > 60.0 (>42); GLUCOSE, FASTING 122 MG/DL (70-100); POTASSIUM SERUM 3.8 MEQ/L (3.5-5.1); SODIUM LEVEL 131 MEQ/L (136-145)
[2018-02-16 19:54] LABS: BEDSIDE GLUCOSE 99 MG/DL (83-110)
[2018-02-16] MEDS: LEVEMIR (INSULIN DETEMIR) 1 UNITS/0.01ML SC (21:00)
[2018-02-16] MEDS: LORATADINE 10 MG TAB PO (21:00)
[2018-02-16] MEDS: SOLIFENACIN 5 MG TAB PO (21:00)
[2018-02-16] MEDS: ONDANSETRON 4 MG ORAL DISINTEGRATING TAB (Q0162 PER 1MG) PO (21:27)
[2018-02-16] MEDS: ONDANSETRON 4MG/2ML VIAL (J2405) IV (22:04)
[2018-02-17 00:19] LABS: BEDSIDE GLUCOSE 202 MG/DL (83-110)
[2018-02-17] MEDS: PANTOPRAZOLE 40MG INJ (PROTONIX) (C9113) IV ×2 (00:56→22:20)
[2018-02-17] MEDS: LR 1,000 ML IV ×3 (00:56→14:02)
[2018-02-17] MEDS: NORCO, ANEXSIA 5/325MG TABLET (HYDROcodone/ACETAMINOPHEN) PO (04:34)
[2018-02-17 06:35] LABS: HEMATOCRIT 34.6 % (42.0-52.0); HEMOGLOBIN 11.5 g/dl (13.5-17.5); MEAN CORPUSCULAR HEMOGLOBIN 27.4 pg (27.0-33.0); MEAN CORPUSCULAR HGB CONC 33.2 g/dl (32.0-36.5); MEAN CORPUSCULAR VOLUME 82.4 fl (80.0-96.0); PLATELET COUNT, AUTOMATED 228 10^3/uL (150-450); RED CELL DISTRIBUTION WIDTH 14.1 % (11.5-14.5)
[2018-02-17 06:55] LABS: ANION GAP 7 MEQ/L (8-16); BLOOD UREA NITROGEN 17 MG/DL (7-18); CALCIUM LEVEL 8.7 MG/DL (8.8-10.2); CARBON DIOXIDE LEVEL 30 MEQ/L (21-32); CHLORIDE LEVEL 92 MEQ/L (98-107); CREATININE FOR GFR 1.06 MG/DL (0.70-1.30); GLOMERULAR FILTRATION RATE > 60.0 (>42); GLUCOSE, FASTING 223 MG/DL (70-100); POTASSIUM SERUM 4.5 MEQ/L (3.5-5.1); SODIUM LEVEL 129 MEQ/L (136-145)
[2018-02-17] MEDS: IPRATROPIUM 0.5MG/ALBUTEROL 2.5MG INH SOL UD 3ML (DUONEB)(J7620) NEB ×4 (07:11→20:29)
[2018-02-17] MEDS: SENOKOT S TAB PO ×2 (09:00→22:19)
[2018-02-17] MEDS: FUROSEMIDE 20 MG TAB PO (09:00)
[2018-02-17] MEDS: MAGNESIUM OXIDE 400 MG TAB (MAG-OX) PO ×2 (09:00→22:19)
[2018-02-17] MEDS: LACTOBACILLUS ACIDOPHILUS CAP (BACID) PO ×2 (09:00→22:18)
[2018-02-17] MEDS: FENOFIBRATE 145 MG TAB (TRICOR) PO (09:00)
[2018-02-17] MEDS: BACLOFEN 10 MG TAB PO ×3 (09:00→22:20)
[2018-02-17] MEDS: GABAPENTIN 300 MG CAP PO ×3 (09:00→22:19)
[2018-02-17] MEDS: APIXABAN 5 MG TAB (ELIQUIS) PO ×2 (10:51→22:19)
[2018-02-17] MEDS: CARVedilol 3.125 MG TAB PO ×2 (10:52→22:20)
[2018-02-17] MEDS: SIMETHICONE 80 MG CHEW TAB PO ×4 (10:53→22:19)
[2018-02-17] MEDS: BISACODYL 10 MG SUPP PR (10:53)
[2018-02-17 11:29] LABS: BEDSIDE GLUCOSE 224 MG/DL (83-110)
[2018-02-17] MEDS: VANCOMYCIN HCL 1,000 MG, VIAL MATE ADAPTER 1 EACH in D5W/0.2% SODIUM CHLORIDE 250 ML IV (12:46)
[2018-02-17 13:01] LABS: VANCOMYCIN LEVEL TROUGH 23.1 UG/ML (10.0-20.0)
[2018-02-17] MEDS: HumaLOG INSULIN (NovoLOG) PER UNIT SC ×2 (14:02→17:29)
[2018-02-17 16:19] LABS: ANION GAP 5 MEQ/L (8-16); BLOOD UREA NITROGEN 19 MG/DL (7-18); CALCIUM LEVEL 8.6 MG/DL (8.8-10.2); CARBON DIOXIDE LEVEL 30 MEQ/L (21-32); CHLORIDE LEVEL 94 MEQ/L (98-107); CREATININE FOR GFR 1.26 MG/DL (0.70-1.30); GLOMERULAR FILTRATION RATE 59.9 (>42); GLUCOSE, FASTING 195 MG/DL (70-100); POTASSIUM SERUM 4.1 MEQ/L (3.5-5.1); SODIUM LEVEL 129 MEQ/L (136-145)
[2018-02-17 16:50] LABS: BEDSIDE GLUCOSE 173 MG/DL (83-110)
[2018-02-17] MEDS: GASTROGRAFIN SOLUTION 30ML PO ×2 (17:20→17:47)
[2018-02-17] MEDS ORDERED: ISOVUE-370 76% 100ML VIAL (Q9967) As Ordered (18:24)
[2018-02-17 20:29] LABS: BEDSIDE GLUCOSE 146 MG/DL (83-110)
[2018-02-17] MEDS: METOCLOPRAMIDE INJ 10MG/2ML VIAL (J2765) IV (20:49)
[2018-02-17] MEDS: LORATADINE 10 MG TAB PO (22:20)
[2018-02-17] MEDS: LEVEMIR (INSULIN DETEMIR) 1 UNITS/0.01ML SC (22:21)
[2018-02-17] MEDS: SOLIFENACIN 5 MG TAB PO (22:23)
[2018-02-18] MEDS: LR 1,000 ML IV ×2 (00:10→12:12)
[2018-02-18 00:25] LABS: BEDSIDE GLUCOSE 160 MG/DL (83-110)
[2018-02-18] MEDS: HumaLOG INSULIN (NovoLOG) PER UNIT SC ×5 (00:50→21:00)
[2018-02-18 06:38] LABS: BASO % 0.2 % (0.0-1.0); EOS # 0.4 10^3/uL (0.0-0.50); EOS % 4.1 % (0.0-3.0); HEMATOCRIT 32.3 % (42.0-52.0); HEMOGLOBIN 10.7 g/dl (13.5-17.5); IMMATURE GRANULOCYTE % 0.2 % (0-3.0); LYMPH # 2.1 10^3/uL (1.5-4.5); LYMPH % 23.6 % (24.0-44.0); MEAN CORPUSCULAR HEMOGLOBIN 27.4 pg (27.0-33.0); MEAN CORPUSCULAR HGB CONC 33.1 g/dl (32.0-36.5); MEAN CORPUSCULAR VOLUME 82.8 fl (80.0-96.0); MONO # 0.9 10^3/uL (0.0-0.8); MONO % 9.9 % (0.0-5.0); NEUTROPHILS # 5.6 10^3/uL (1.8-7.7); PLATELET COUNT, AUTOMATED 219 10^3/uL (150-450); RED CELL DISTRIBUTION WIDTH 14.3 % (11.5-14.5)
[2018-02-18] MEDS: IPRATROPIUM 0.5MG/ALBUTEROL 2.5MG INH SOL UD 3ML (DUONEB)(J7620) NEB ×4 (07:08→20:00)
[2018-02-18 07:14] LABS: ALBUMIN 2.5 GM/DL (3.2-5.2); ALBUMIN/GLOBULIN RATIO 0.69 (1.00-1.93); ALKALINE PHOSPHATASE 60 U/L (45-117); ALT/SGPT 12 U/L (12-78); ANION GAP 5 MEQ/L (8-16); AST/SGOT 7 U/L (7-37); BILIRUBIN,TOTAL 0.4 MG/DL (0.2-1.0); BLOOD UREA NITROGEN 18 MG/DL (7-18); CALCIUM LEVEL 8.7 MG/DL (8.8-10.2); CARBON DIOXIDE LEVEL 33 MEQ/L (21-32); CHLORIDE LEVEL 95 MEQ/L (98-107); CREATININE FOR GFR 1.07 MG/DL (0.70-1.30); GLOMERULAR FILTRATION RATE > 60.0 (>42); GLUCOSE, FASTING 108 MG/DL (70-100); POTASSIUM SERUM 3.8 MEQ/L (3.5-5.1); SODIUM LEVEL 133 MEQ/L (136-145); TOTAL PROTEIN 6.1 GM/DL (6.4-8.2)
[2018-02-18] MEDS: SENOKOT S TAB PO ×2 (08:26→21:26)
[2018-02-18] MEDS: BISACODYL 10 MG SUPP PR (08:27)
[2018-02-18] MEDS: BACLOFEN 10 MG TAB PO ×3 (08:28→21:27)
[2018-02-18] MEDS: APIXABAN 5 MG TAB (ELIQUIS) PO ×2 (08:28→21:27)
[2018-02-18] MEDS: FENOFIBRATE 145 MG TAB (TRICOR) PO (08:29)
[2018-02-18] MEDS: GABAPENTIN 300 MG CAP PO ×3 (08:29→21:26)
[2018-02-18] MEDS: FUROSEMIDE 20 MG TAB PO (08:29)
[2018-02-18] MEDS: CARVedilol 3.125 MG TAB PO ×2 (08:30→21:26)
[2018-02-18] MEDS: SIMETHICONE 80 MG CHEW TAB PO ×4 (08:30→21:27)
[2018-02-18] MEDS: METOCLOPRAMIDE INJ 10MG/2ML VIAL (J2765) IV ×4 (08:38→21:27)
[2018-02-18] MEDS: LACTOBACILLUS ACIDOPHILUS CAP (BACID) PO ×2 (08:39→21:27)
[2018-02-18] MEDS: MAGNESIUM OXIDE 400 MG TAB (MAG-OX) PO ×2 (08:39→21:27)
[2018-02-18 12:01] LABS: BEDSIDE GLUCOSE 161 MG/DL (83-110)
[2018-02-18] MEDS: VANCOMYCIN HCL 1,000 MG, VIAL MATE ADAPTER 1 EACH in D5W/0.2% SODIUM CHLORIDE 250 ML IV (12:11)
[2018-02-18 12:19] LABS: VANCOMYCIN LEVEL TROUGH 19.3 UG/ML (10.0-20.0)
[2018-02-18 16:41] LABS: BEDSIDE GLUCOSE 143 MG/DL (83-110)
[2018-02-18] MEDS ORDERED: DEXTROSE 50% 50 ML SYRINGE IV (16:45)
[2018-02-18] MEDS ORDERED: GLUCOSE 4 GM CHEW TABLET PO (16:45)
[2018-02-18] MEDS ORDERED: GLUCAGON FOR INJ 1 MG VIAL (J1610) SC (16:45)
[2018-02-18 19:55] LABS: BEDSIDE GLUCOSE 213 MG/DL (83-110)
[2018-02-18] MEDS: PANTOPRAZOLE 40MG INJ (PROTONIX) (C9113) IV (21:27)
[2018-02-18] MEDS: SOLIFENACIN 5 MG TAB PO (21:27)
[2018-02-18] MEDS: LORATADINE 10 MG TAB PO (21:27)
[2018-02-18] MEDS: LEVEMIR (INSULIN DETEMIR) 1 UNITS/0.01ML SC (21:28)
[2018-02-19 06:39] LABS: BEDSIDE GLUCOSE 121 MG/DL (83-110)
[2018-02-19] MEDS: VANCOMYCIN HCL 1,000 MG, VIAL MATE ADAPTER 1 EACH in D5W/0.2% SODIUM CHLORIDE 250 ML IV (06:42)
[2018-02-19] MEDS: IPRATROPIUM 0.5MG/ALBUTEROL 2.5MG INH SOL UD 3ML (DUONEB)(J7620) NEB ×4 (07:10→19:57)
[2018-02-19] MEDS: BISACODYL 10 MG SUPP PR (09:00)
[2018-02-19] MEDS: LR 1,000 ML IV (10:19)
[2018-02-19] MEDS: SIMETHICONE 80 MG CHEW TAB PO ×4 (10:19→21:22)
[2018-02-19] MEDS: LACTOBACILLUS ACIDOPHILUS CAP (BACID) PO ×2 (10:19→21:22)
[2018-02-19] MEDS: METOCLOPRAMIDE INJ 10MG/2ML VIAL (J2765) IV ×4 (10:19→21:20)
[2018-02-19] MEDS: SENOKOT S TAB PO ×2 (10:20→21:20)
[2018-02-19] MEDS: MAGNESIUM OXIDE 400 MG TAB (MAG-OX) PO ×2 (10:20→21:21)
[2018-02-19] MEDS: FENOFIBRATE 145 MG TAB (TRICOR) PO (10:20)
[2018-02-19] MEDS: ONDANSETRON 4 MG ORAL DISINTEGRATING TAB (Q0162 PER 1MG) PO (10:21)
[2018-02-19] MEDS: GABAPENTIN 300 MG CAP PO ×3 (10:21→21:22)
[2018-02-19] MEDS: APIXABAN 5 MG TAB (ELIQUIS) PO ×2 (10:21→21:20)
[2018-02-19] MEDS: CARVedilol 3.125 MG TAB PO ×2 (10:21→21:21)
[2018-02-19] MEDS: BACLOFEN 10 MG TAB PO ×3 (10:21→21:20)
[2018-02-19] MEDS: HumaLOG INSULIN (NovoLOG) PER UNIT SC ×4 (10:22→20:45)
[2018-02-19] MEDS: FUROSEMIDE 20 MG TAB PO (10:22)
[2018-02-19 10:25] LABS: HEMATOCRIT 33.6 % (42.0-52.0); HEMOGLOBIN 11.1 g/dl (13.5-17.5); MEAN CORPUSCULAR HEMOGLOBIN 27.4 pg (27.0-33.0); PLATELET COUNT, AUTOMATED 242 10^3/uL (150-450); RED BLOOD COUNT 4.05 10^6/uL (4.30-6.10); RED CELL DISTRIBUTION WIDTH 14.3 % (11.5-14.5); WHITE BLOOD COUNT 9.8 10^3/uL (4.0-10.0)
[2018-02-19 11:01] LABS: ANION GAP 7 MEQ/L (8-16); BLOOD UREA NITROGEN 16 MG/DL (7-18); CALCIUM LEVEL 8.7 MG/DL (8.8-10.2); CARBON DIOXIDE LEVEL 32 MEQ/L (21-32); CHLORIDE LEVEL 94 MEQ/L (98-107); CREATININE FOR GFR 1.18 MG/DL (0.70-1.30); GLOMERULAR FILTRATION RATE > 60.0 (>42); GLUCOSE, FASTING 170 MG/DL (70-100); POTASSIUM SERUM 4.1 MEQ/L (3.5-5.1); SODIUM LEVEL 133 MEQ/L (136-145)
[2018-02-19 11:42] LABS: BEDSIDE GLUCOSE 206 MG/DL (83-110)
[2018-02-19 16:44] LABS: BEDSIDE GLUCOSE 182 MG/DL (83-110)
[2018-02-19 20:43] LABS: BEDSIDE GLUCOSE 160 MG/DL (83-110)
[2018-02-19] MEDS: LEVEMIR (INSULIN DETEMIR) 1 UNITS/0.01ML SC (21:20)
[2018-02-19] MEDS: SOLIFENACIN 5 MG TAB PO (21:21)
[2018-02-19] MEDS: LORATADINE 10 MG TAB PO (21:22)
[2018-02-20] MEDS: VANCOMYCIN HCL 1,000 MG, VIAL MATE ADAPTER 1 EACH in D5W/0.2% SODIUM CHLORIDE 250 ML IV (00:13)
[2018-02-20 07:16] LABS: HEMATOCRIT 31.7 % (42.0-52.0); HEMOGLOBIN 10.5 g/dl (13.5-17.5); MEAN CORPUSCULAR HEMOGLOBIN 27.3 pg (27.0-33.0); MEAN CORPUSCULAR HGB CONC 33.1 g/dl (32.0-36.5); MEAN CORPUSCULAR VOLUME 82.3 fl (80.0-96.0); PLATELET COUNT, AUTOMATED 226 10^3/uL (150-450); RED BLOOD COUNT 3.85 10^6/uL (4.30-6.10); RED CELL DISTRIBUTION WIDTH 14.1 % (11.5-14.5); WHITE BLOOD COUNT 8.5 10^3/uL (4.0-10.0)
[2018-02-20] MEDS: IPRATROPIUM 0.5MG/ALBUTEROL 2.5MG INH SOL UD 3ML (DUONEB)(J7620) NEB ×4 (07:26→20:14)
[2018-02-20 07:30] LABS: ANION GAP 4 MEQ/L (8-16); BLOOD UREA NITROGEN 16 MG/DL (7-18); CALCIUM LEVEL 8.9 MG/DL (8.8-10.2); CARBON DIOXIDE LEVEL 33 MEQ/L (21-32); CHLORIDE LEVEL 94 MEQ/L (98-107); CREATININE FOR GFR 1.05 MG/DL (0.70-1.30); GLOMERULAR FILTRATION RATE > 60.0 (>42); GLUCOSE, FASTING 177 MG/DL (70-100); SODIUM LEVEL 131 MEQ/L (136-145)
[2018-02-20] MEDS: METOCLOPRAMIDE INJ 10MG/2ML VIAL (J2765) IV (08:36)
[2018-02-20] MEDS: SIMETHICONE 80 MG CHEW TAB PO ×4 (08:36→21:10)
[2018-02-20] MEDS: HumaLOG INSULIN (NovoLOG) PER UNIT SC ×4 (08:36→21:00)
[2018-02-20] MEDS: BACLOFEN 10 MG TAB PO ×3 (08:36→21:10)
[2018-02-20] MEDS: FUROSEMIDE 20 MG TAB PO (08:36)
[2018-02-20] MEDS: APIXABAN 5 MG TAB (ELIQUIS) PO ×2 (08:37→21:09)
[2018-02-20] MEDS: MAGNESIUM OXIDE 400 MG TAB (MAG-OX) PO ×2 (08:37→21:09)
[2018-02-20] MEDS: PANTOPRAZOLE 40MG TAB (PROTONIX) PO (08:37)
[2018-02-20] MEDS: GABAPENTIN 300 MG CAP PO ×3 (08:37→21:09)
[2018-02-20] MEDS: LACTOBACILLUS ACIDOPHILUS CAP (BACID) PO ×2 (08:37→21:09)
[2018-02-20] MEDS: FENOFIBRATE 145 MG TAB (TRICOR) PO (08:37)
[2018-02-20] MEDS: SENOKOT S TAB PO ×2 (08:37→21:10)
[2018-02-20] MEDS: BISACODYL 10 MG SUPP PR (08:38)
[2018-02-20] MEDS: CARVedilol 3.125 MG TAB PO ×2 (08:38→21:10)
[2018-02-20 11:39] LABS: BEDSIDE GLUCOSE 186 MG/DL (83-110)
[2018-02-20 13:03] LABS: SODIUM,RANDOM URINE 43 MEQ/L
[2018-02-20 13:24] LABS: ANION GAP 5 MEQ/L (8-16); BLOOD UREA NITROGEN 15 MG/DL (7-18); CALCIUM LEVEL 8.7 MG/DL (8.8-10.2); CARBON DIOXIDE LEVEL 34 MEQ/L (21-32); CHLORIDE LEVEL 93 MEQ/L (98-107); CREATININE FOR GFR 1.08 MG/DL (0.70-1.30); GLOMERULAR FILTRATION RATE > 60.0 (>42); GLUCOSE, FASTING 181 MG/DL (70-100); POTASSIUM SERUM 4.1 MEQ/L (3.5-5.1); SODIUM LEVEL 132 MEQ/L (136-145)
[2018-02-20 13:35] LABS: OSMOLALITY SERUM 278 MOSM/KG (280-301)
[2018-02-20 14:22] LABS: OSMOLALITY URINE 207 MOSM/KG (500-800)
[2018-02-20 16:38] LABS: BEDSIDE GLUCOSE 167 MG/DL (83-110)
[2018-02-20] MEDS: SOLIFENACIN 5 MG TAB PO (21:08)
[2018-02-20] MEDS: LEVEMIR (INSULIN DETEMIR) 1 UNITS/0.01ML SC (21:08)
[2018-02-20] MEDS: LORATADINE 10 MG TAB PO (21:09)
[2018-02-20 21:44] LABS: BEDSIDE GLUCOSE 215 MG/DL (83-110)
[2018-02-21 06:22] LABS: BEDSIDE GLUCOSE 162 MG/DL (83-110)
[2018-02-21 06:45] LABS: HEMATOCRIT 33.7 % (42.0-52.0); HEMOGLOBIN 11.2 g/dl (13.5-17.5); MEAN CORPUSCULAR HEMOGLOBIN 27.4 pg (27.0-33.0); MEAN CORPUSCULAR HGB CONC 33.2 g/dl (32.0-36.5); MEAN CORPUSCULAR VOLUME 82.4 fl (80.0-96.0); PLATELET COUNT, AUTOMATED 251 10^3/uL (150-450); RED BLOOD COUNT 4.09 10^6/uL (4.30-6.10); WHITE BLOOD COUNT 8.2 10^3/uL (4.0-10.0)
[2018-02-21] MEDS: IPRATROPIUM 0.5MG/ALBUTEROL 2.5MG INH SOL UD 3ML (DUONEB)(J7620) NEB ×4 (07:42→20:09)
[2018-02-21] MEDS: HumaLOG INSULIN (NovoLOG) PER UNIT SC ×4 (07:54→20:50)
[2018-02-21] MEDS: PANTOPRAZOLE 40MG TAB (PROTONIX) PO (07:55)
[2018-02-21] MEDS: FENOFIBRATE 145 MG TAB (TRICOR) PO (07:55)
[2018-02-21] MEDS: SENOKOT S TAB PO ×2 (07:55→21:02)
[2018-02-21] MEDS: BACLOFEN 10 MG TAB PO ×3 (07:55→21:02)
[2018-02-21] MEDS: SIMETHICONE 80 MG CHEW TAB PO ×4 (07:55→21:04)
[2018-02-21] MEDS: MAGNESIUM OXIDE 400 MG TAB (MAG-OX) PO ×2 (07:55→21:03)
[2018-02-21] MEDS: FUROSEMIDE 20 MG TAB PO (07:56)
[2018-02-21] MEDS: LACTOBACILLUS ACIDOPHILUS CAP (BACID) PO ×2 (07:56→21:02)
[2018-02-21] MEDS: GABAPENTIN 300 MG CAP PO ×3 (07:56→21:02)
[2018-02-21] MEDS: CARVedilol 3.125 MG TAB PO ×2 (07:56→21:04)
[2018-02-21] MEDS: APIXABAN 5 MG TAB (ELIQUIS) PO ×2 (07:56→21:04)
[2018-02-21] MEDS: BISACODYL 10 MG SUPP PR (07:56)
[2018-02-21 11:45] LABS: BEDSIDE GLUCOSE 141 MG/DL (83-110)
[2018-02-21 16:44] LABS: BEDSIDE GLUCOSE 159 MG/DL (83-110)
[2018-02-21 20:08] LABS: BEDSIDE GLUCOSE 240 MG/DL (83-110)
[2018-02-21] MEDS: LORATADINE 10 MG TAB PO (21:03)
[2018-02-21] MEDS: LEVEMIR (INSULIN DETEMIR) 1 UNITS/0.01ML SC (21:05)
[2018-02-21] MEDS: SOLIFENACIN 5 MG TAB PO (21:12)
[2018-02-22 06:52] LABS: ANION GAP 6 MEQ/L (8-16); BLOOD UREA NITROGEN 16 MG/DL (7-18); CARBON DIOXIDE LEVEL 34 MEQ/L (21-32); CHLORIDE LEVEL 95 MEQ/L (98-107); CREATININE FOR GFR 1.25 MG/DL (0.70-1.30); GLOMERULAR FILTRATION RATE > 60.0 (>42); GLUCOSE, FASTING 92 MG/DL (70-100); POTASSIUM SERUM 3.8 MEQ/L (3.5-5.1); SODIUM LEVEL 135 MEQ/L (136-145)
[2018-02-22] MEDS: IPRATROPIUM 0.5MG/ALBUTEROL 2.5MG INH SOL UD 3ML (DUONEB)(J7620) NEB ×4 (07:25→21:43)
[2018-02-22] MEDS: HumaLOG INSULIN (NovoLOG) PER UNIT SC ×4 (07:30→21:00)
[2018-02-22] MEDS: FENOFIBRATE 145 MG TAB (TRICOR) PO (08:18)
[2018-02-22] MEDS: FUROSEMIDE 20 MG TAB PO (08:18)
[2018-02-22] MEDS: GABAPENTIN 300 MG CAP PO (08:18)
[2018-02-22] MEDS: BACLOFEN 10 MG TAB PO (08:18)
[2018-02-22] MEDS: LACTOBACILLUS ACIDOPHILUS CAP (BACID) PO ×2 (08:19→21:00)
[2018-02-22] MEDS: MAGNESIUM OXIDE 400 MG TAB (MAG-OX) PO ×2 (08:19→21:00)
[2018-02-22] MEDS: SIMETHICONE 80 MG CHEW TAB PO ×4 (08:19→21:00)
[2018-02-22] MEDS: SENOKOT S TAB PO ×2 (08:20→21:00)
[2018-02-22] MEDS: BISACODYL 10 MG SUPP PR (08:20)
[2018-02-22] MEDS: CARVedilol 3.125 MG TAB PO ×2 (08:21→22:00)
[2018-02-22] MEDS: PANTOPRAZOLE 40MG TAB (PROTONIX) PO (08:22)
[2018-02-22] MEDS: APIXABAN 5 MG TAB (ELIQUIS) PO ×2 (08:25→21:59)
[2018-02-22 11:06] LABS: BEDSIDE GLUCOSE 86 MG/DL (83-110)
[2018-02-22 11:41] LABS: HEMATOCRIT 37.6 % (42.0-52.0); HEMOGLOBIN 12.2 g/dl (13.5-17.5); MEAN CORPUSCULAR HEMOGLOBIN 27.1 pg (27.0-33.0); MEAN CORPUSCULAR HGB CONC 32.4 g/dl (32.0-36.5); MEAN CORPUSCULAR VOLUME 83.6 fl (80.0-96.0); PLATELET COUNT, AUTOMATED 276 10^3/uL (150-450); RED CELL DISTRIBUTION WIDTH 13.9 % (11.5-14.5); WHITE BLOOD COUNT 9.6 10^3/uL (4.0-10.0)
[2018-02-22 11:45] LABS: ABG BASE EXCESS 6.2 (-2.0-2.0); ABG HCO3 32.4 MEQ/L (22.0-26.0); ABG O2 SATURATION 94.3 % (95.0-99.0); ABG PARTIAL PRESSURE CO2 54.4 mmHg (35.0-45.0); ABG PARTIAL PRESSURE O2 76.6 mmHg (75.0-100.0); ABG STANDARD HCO3 30.1 MEQ/L (22.0-26.0); ABG TOTAL CO2 34.1 MEQ/L (23.0-31.0); ABG pH (ARTERIAL) 7.393 UNITS (7.350-7.450)
[2018-02-22 16:03] LABS: BEDSIDE GLUCOSE 134 MG/DL (83-110)
[2018-02-22] MEDS: SOLIFENACIN 5 MG TAB PO (21:00)
[2018-02-22] MEDS: LORATADINE 10 MG TAB PO (21:00)
[2018-02-22 21:27] LABS: BEDSIDE GLUCOSE 181 MG/DL (83-110)
[2018-02-22] MEDS: LEVEMIR (INSULIN DETEMIR) 1 UNITS/0.01ML SC (21:59)
[2018-02-22 22:59] LABS: BASO % 0.4 % (0.0-1.0); EOS # 0.4 10^3/uL (0.0-0.50); HEMATOCRIT 33.2 % (42.0-52.0); HEMOGLOBIN 10.8 g/dl (13.5-17.5); IMMATURE GRANULOCYTE % 0.6 % (0-3.0); LYMPH % 24.5 % (24.0-44.0); MEAN CORPUSCULAR HEMOGLOBIN 26.9 pg (27.0-33.0); MEAN CORPUSCULAR HGB CONC 32.5 g/dl (32.0-36.5); MEAN CORPUSCULAR VOLUME 82.8 fl (80.0-96.0); MONO # 0.6 10^3/uL (0.0-0.8); NEUTROPHILS # 5.1 10^3/uL (1.8-7.7); NEUTROPHILS % 62.5 % (36.0-66.0); PLATELET COUNT, AUTOMATED 252 10^3/uL (150-450); RED BLOOD COUNT 4.01 10^6/uL (4.30-6.10); RED CELL DISTRIBUTION WIDTH 13.9 % (11.5-14.5); WHITE BLOOD COUNT 8.2 10^3/uL (4.0-10.0)
[2018-02-22 23:26] LABS: KETONE, URINE AUTO RFX NEGATIVE (NEGATIVE); RBC, URINE AUTO RFX 106 /HPF (0-3); SPECIFIC GRAVITY UR AUTO RFX 1.008 (1.002-1.035); SQUAM EPITHELIAL CELL UR AURFX 0 /HPF (0-6); TRANSITIONAL EPITHELIAL AU RFX <1 /HPF
[2018-02-22 23:27] LABS: LEUKOCYTE ESTERASE UR AUTO RFX 3+ (NEGATIVE); NITRITE, URINE AUTO RFX POSITIVE (NEGATIVE); WBC, URINE AUTO RFX 43 /HPF (0-3)
[2018-02-22 23:36] LABS: ANION GAP 8 MEQ/L (8-16); BLOOD UREA NITROGEN 16 MG/DL (7-18); CALCIUM LEVEL 8.6 MG/DL (8.8-10.2); CARBON DIOXIDE LEVEL 31 MEQ/L (21-32); CHLORIDE LEVEL 95 MEQ/L (98-107); CREATININE FOR GFR 1.26 MG/DL (0.70-1.30); GLOMERULAR FILTRATION RATE 59.9 (>42); GLUCOSE, FASTING 208 MG/DL (70-100); SODIUM LEVEL 134 MEQ/L (136-145)
[2018-02-22 23:42] LABS: ABG BASE EXCESS 4.5 (-2.0-2.0); ABG HCO3 30.1 MEQ/L (22.0-26.0); ABG O2 SATURATION 95.1 % (95.0-99.0); ABG PARTIAL PRESSURE CO2 49.7 mmHg (35.0-45.0); ABG PARTIAL PRESSURE O2 85.7 mmHg (75.0-100.0); ABG STANDARD HCO3 28.4 MEQ/L (22.0-26.0); ABG TOTAL CO2 31.6 MEQ/L (23.0-31.0)
[2018-02-23] MEDS: cefTRIAXone SOD 1 GM in D5W MINI-BAG PLUS 50 ML IV ×2 (00:22→23:50)
[2018-02-23 05:59] LABS: HEMATOCRIT 32.9 % (42.0-52.0); HEMOGLOBIN 10.9 g/dl (13.5-17.5); MEAN CORPUSCULAR HEMOGLOBIN 27.5 pg (27.0-33.0); MEAN CORPUSCULAR HGB CONC 33.1 g/dl (32.0-36.5); MEAN CORPUSCULAR VOLUME 82.9 fl (80.0-96.0); PLATELET COUNT, AUTOMATED 259 10^3/uL (150-450); RED BLOOD COUNT 3.97 10^6/uL (4.30-6.10); RED CELL DISTRIBUTION WIDTH 13.9 % (11.5-14.5); WHITE BLOOD COUNT 7.4 10^3/uL (4.0-10.0)
[2018-02-23] MEDS: IPRATROPIUM 0.5MG/ALBUTEROL 2.5MG INH SOL UD 3ML (DUONEB)(J7620) NEB ×4 (07:59→21:06)
[2018-02-23 08:14] LABS: BEDSIDE GLUCOSE 148 MG/DL (83-110)
[2018-02-23] MEDS: HumaLOG INSULIN (NovoLOG) PER UNIT SC ×4 (08:35→21:00)
[2018-02-23] MEDS: FENOFIBRATE 145 MG TAB (TRICOR) PO (08:35)
[2018-02-23] MEDS: LACTOBACILLUS ACIDOPHILUS CAP (BACID) PO ×2 (08:35→20:35)
[2018-02-23] MEDS: CARVedilol 3.125 MG TAB PO ×2 (08:35→20:36)
[2018-02-23] MEDS: PANTOPRAZOLE 40MG TAB (PROTONIX) PO (08:36)
[2018-02-23] MEDS: SIMETHICONE 80 MG CHEW TAB PO ×4 (08:36→20:36)
[2018-02-23] MEDS: SENOKOT S TAB PO ×2 (08:36→20:35)
[2018-02-23] MEDS: FUROSEMIDE 20 MG TAB PO (08:36)
[2018-02-23] MEDS: MAGNESIUM OXIDE 400 MG TAB (MAG-OX) PO ×2 (08:37→20:36)
[2018-02-23] MEDS: BISACODYL 10 MG SUPP PR (08:37)
[2018-02-23] MEDS: APIXABAN 5 MG TAB (ELIQUIS) PO ×2 (08:37→20:35)
[2018-02-23 11:13] LABS: BEDSIDE GLUCOSE 119 MG/DL (83-110)
[2018-02-23 16:44] LABS: BEDSIDE GLUCOSE 142 MG/DL (83-110)
[2018-02-23 20:11] LABS: BEDSIDE GLUCOSE 172 MG/DL (83-110)
[2018-02-23] MEDS: LORATADINE 10 MG TAB PO (20:35)
[2018-02-23] MEDS: SOLIFENACIN 5 MG TAB PO (20:35)
[2018-02-23] MEDS: LEVEMIR (INSULIN DETEMIR) 1 UNITS/0.01ML SC (20:36)
[2018-02-24 06:48] LABS: ANION GAP 6 MEQ/L (8-16); BLOOD UREA NITROGEN 19 MG/DL (7-18); CALCIUM LEVEL 8.3 MG/DL (8.8-10.2); CARBON DIOXIDE LEVEL 30 MEQ/L (21-32); CHLORIDE LEVEL 100 MEQ/L (98-107); GLOMERULAR FILTRATION RATE > 60.0 (>42); GLUCOSE, FASTING 182 MG/DL (70-100); POTASSIUM SERUM 3.8 MEQ/L (3.5-5.1); SODIUM LEVEL 136 MEQ/L (136-145)
[2018-02-24] MEDS: IPRATROPIUM 0.5MG/ALBUTEROL 2.5MG INH SOL UD 3ML (DUONEB)(J7620) NEB ×2 (07:21→11:13)
[2018-02-24] MEDS: SIMETHICONE 80 MG CHEW TAB PO ×2 (08:05→12:22)
[2018-02-24] MEDS: LACTOBACILLUS ACIDOPHILUS CAP (BACID) PO (08:06)
[2018-02-24] MEDS: APIXABAN 5 MG TAB (ELIQUIS) PO (08:06)
[2018-02-24] MEDS: HumaLOG INSULIN (NovoLOG) PER UNIT SC ×2 (08:06→12:22)
[2018-02-24] MEDS: PANTOPRAZOLE 40MG TAB (PROTONIX) PO (08:06)
[2018-02-24] MEDS: SENOKOT S TAB PO (08:06)
[2018-02-24] MEDS: FENOFIBRATE 145 MG TAB (TRICOR) PO (08:06)
[2018-02-24] MEDS: BISACODYL 10 MG SUPP PR (08:07)
[2018-02-24] MEDS: CARVedilol 3.125 MG TAB PO (08:07)
[2018-02-24] MEDS: FUROSEMIDE 20 MG TAB PO (08:07)
[2018-02-24] MEDS: MAGNESIUM OXIDE 400 MG TAB (MAG-OX) PO (08:07)
[2018-02-24 12:14] LABS: BEDSIDE GLUCOSE 185 MG/DL (83-110)
== END 2018-02-24 13:00 | disposition home health service (06) | DRG 335 ==
LOC: M SDC 07:48 → M MSPAV 16:50 → M SDC 02-13 02:59 → M MSPAV 02-13 02:59 → M SDC 16:50 → M MSPAV 02-13 03:00
PROVIDERS: Surgery
PROC: 0DNW0ZZ Release Peritoneum, Open Approach (ICD-10-PCS; principal; 2018-02-10 10:00)
PROC: 0WUF0JZ Supplement Abdominal Wall with Synthetic Substitute, Open Approach (ICD-10-PCS; 2018-02-10 10:00)
DX: K43.2 Incisional hernia without obstruction or gangrene (principal); J15.212 Pneumonia due to Methicillin resistant Staphylococcus aureus; I50.32 Chronic diastolic (congestive) heart failure; E87.1 Hypo-osmolality and hyponatremia; I47.2 Ventricular tachycardia; K56.7 Ileus, unspecified; I48.2 Chronic atrial fibrillation; M06.9 Rheumatoid arthritis, unspecified; M45.9 Ankylosing spondylitis of unspecified sites in spine; N31.9 Neuromuscular dysfunction of bladder, unspecified; E78.5 Hyperlipidemia, unspecified; I11.0 Hypertensive heart disease with heart failure; E11.21 Type 2 diabetes mellitus with diabetic nephropathy; Z91.040 Latex allergy status; Z91.048 Other nonmedicinal substance allergy status; Z88.2 Allergy status to sulfonamides; Z88.5 Allergy status to narcotic agent; Z88.8 Allergy status to other drugs, medicaments and biological substances; R53.81 Other malaise; Z95.0 Presence of cardiac pacemaker; Z87.440 Personal history of urinary (tract) infections; Z90.49 Acquired absence of other specified parts of digestive tract; Z79.4 Long term (current) use of insulin; Z79.899 Other long term (current) drug therapy; Z96.0 Presence of urogenital implants

== ENCOUNTER → 2018-04-12 | Outpatient (REF) | payer MEDICARE, MEDICAID ==
[2018-04-12 11:40] LABS: ALBUMIN 3.3 GM/DL (3.2-5.2); ALKALINE PHOSPHATASE 67 U/L (45-117); ALT/SGPT 20 U/L (12-78); ANION GAP 5 MEQ/L (8-16); AST/SGOT 17 U/L (7-37); BILIRUBIN,TOTAL 0.4 MG/DL (0.2-1.0); BLOOD UREA NITROGEN 19 MG/DL (7-18); CALCIUM LEVEL 9.4 MG/DL (8.8-10.2); CARBON DIOXIDE LEVEL 32 MEQ/L (21-32); CHLORIDE LEVEL 96 MEQ/L (98-107); CHOLESTEROL LEVEL 70 MG/DL (<200); CHOLESTEROL RISK RATIO 1.707 (<5); CREATININE FOR GFR 1.35 MG/DL (0.70-1.30); GLOMERULAR FILTRATION RATE 55.3 (>42); GLUCOSE, FASTING 101 MG/DL (70-100); HDL CHOLESTEROL 41 MG/DL (>40); LDL CHOLESTEROL 16.6 MG/DL (<100); NON-HDL-C 29 MG/DL; POTASSIUM SERUM 4.2 MEQ/L (3.5-5.1); SODIUM LEVEL 133 MEQ/L (136-145); TOTAL PROTEIN 7.4 GM/DL (6.4-8.2); TRIGLYCERIDES LEVEL 62 MG/DL (<150)
== END ==
LOC: SKLABADC 09:17
DX: E78.5 Hyperlipidemia, unspecified (principal); I11.0 Hypertensive heart disease with heart failure; I50.32 Chronic diastolic (congestive) heart failure
CPT/HCPCS: 80053

== ENCOUNTER 2018-04-16 08:07 | Inpatient (IN) | payer MEDICARE, MEDICAID ==
[2018-04-16 08:35] LABS: BEDSIDE GLUCOSE 206 MG/DL (83-110)
[2018-04-16] MEDS: NS 1,000 ML IV ×2 (08:37→18:04)
[2018-04-16 08:39] LABS: VENOUS BASE EXCESS -1.1 (-2.0-2.0); VENOUS HCO3 23.5 MEQ/L (23.0-27.0); VENOUS O2 SATURATION 97.3 % (60.0-80.0); VENOUS PARTIAL PRESSURE CO2 38.6 mmHg (38.0-50.0); VENOUS PARTIAL PRESSURE O2 189.3 mmHg (30.0-50.0); VENOUS PH 7.402 UNITS (7.330-7.430); VENOUS STANDARD HCO3 23.6 MEQ/L; VENOUS TOTAL CO2 24.7 MEQ/L (24.0-28.0)
[2018-04-16 08:43] LABS: BASO % 0.4 % (0.0-1.0); EOS # 0.2 10^3/uL (0.0-0.50); EOS % 2.1 % (0.0-3.0); HEMATOCRIT 33.3 % (42.0-52.0); HEMOGLOBIN 11.5 g/dl (13.5-17.5); IMMATURE GRANULOCYTE % 0.7 % (0-3.0); LYMPH # 2.8 10^3/uL (1.5-4.5); LYMPH % 26.8 % (24.0-44.0); MEAN CORPUSCULAR HEMOGLOBIN 28.4 pg (27.0-33.0); MEAN CORPUSCULAR HGB CONC 34.5 g/dl (32.0-36.5); MEAN CORPUSCULAR VOLUME 82.2 fl (80.0-96.0); MONO # 0.7 10^3/uL (0.0-0.8); MONO % 6.8 % (0.0-5.0); NEUTROPHILS # 6.5 10^3/uL (1.8-7.7); NEUTROPHILS % 63.2 % (36.0-66.0); PLATELET COUNT, AUTOMATED 227 10^3/uL (150-450); RED BLOOD COUNT 4.05 10^6/uL (4.30-6.10); RED CELL DISTRIBUTION WIDTH 13.4 % (11.5-14.5); WHITE BLOOD COUNT 10.3 10^3/uL (4.0-10.0)
[2018-04-16 08:58] LABS: OSMOLALITY SERUM 274 MOSM/KG (280-301)
[2018-04-16 09:03] LABS: AMMONIA 42 uMOL/L (<32)
[2018-04-16 09:04] LABS: MAGNESIUM LEVEL 1.5 MG/DL (1.8-2.4)
[2018-04-16 09:06] LABS: LACTIC ACID SEPSIS PROTOCOL 0.8 MMOL/L (0.4-2.0)
[2018-04-16 09:11] LABS: ALBUMIN/GLOBULIN RATIO 0.77 (1.00-1.93); ALKALINE PHOSPHATASE 77 U/L (45-117); ALT/SGPT 16 U/L (12-78); ANION GAP 7 MEQ/L (8-16); AST/SGOT 13 U/L (7-37); BILIRUBIN,DIRECT 0.2 MG/DL (0.0-0.2); BILIRUBIN,TOTAL 0.4 MG/DL (0.2-1.0); BLOOD UREA NITROGEN 18 MG/DL (7-18); CALCIUM LEVEL 8.9 MG/DL (8.8-10.2); CARBON DIOXIDE LEVEL 27 MEQ/L (21-32); CHLORIDE LEVEL 94 MEQ/L (98-107); CPK CREATINE PHOSPHOKINASE 141 U/L (39-308); CREATININE FOR GFR 1.23 MG/DL (0.70-1.30); GLOMERULAR FILTRATION RATE > 60.0 (>42); GLUCOSE, FASTING 198 MG/DL (70-100); POTASSIUM SERUM 4.1 MEQ/L (3.5-5.1); SODIUM LEVEL 128 MEQ/L (136-145); TOTAL PROTEIN 6.9 GM/DL (6.4-8.2); TROPONIN I 0.06 NG/ML (< 0.10)
[2018-04-16 09:16] LABS: CK-MB VALUE MASS 2.8 NG/ML (<3.6); MB/CK RELATIVE INDEX 1.98 (< OR =4)
[2018-04-16 09:23] LABS: AMORPHOUS SEDIMENT RFX SMALL (NEGATIVE); CALCIUM OXALATE CRYSTALS RFX SMALL; KETONE, URINE AUTO RFX NEGATIVE (NEGATIVE); NITRITE, URINE AUTO RFX NEGATIVE (NEGATIVE); RBC, URINE AUTO RFX 19 /HPF (0-3); SPECIFIC GRAVITY UR AUTO RFX 1.008 (1.002-1.035); SQUAM EPITHELIAL CELL UR AURFX 0 /HPF (0-6)
[2018-04-16 09:24] LABS: LEUKOCYTE ESTERASE UR AUTO RFX 3+ (NEGATIVE); WBC, URINE AUTO RFX 14 /HPF (0-3)
[2018-04-16 09:52] LABS: OSMOLALITY URINE 330 MOSM/KG (500-800)
[2018-04-16] MEDS: MAG SULF 1GM/100ML (MAG RUN) 1 GM in APPROPRIATE DILUENT 1 EA IV (09:54)
[2018-04-16 11:05] LABS: SODIUM,RANDOM URINE 68 MEQ/L
[2018-04-16 11:05] LABS: CREATININE,RANDOM URINE < 13.0 MG/DL
[2018-04-16] MEDS: LevoFLOXacin IV 500 MG in APPROPRIATE DILUENT 1 EA IV (12:02)
[2018-04-16] MEDS ORDERED: ONDANSETRON 4MG/2ML VIAL (J2405) IV (16:30)
[2018-04-16] MEDS ORDERED: GLUCOSE 4 GM CHEW TABLET PO (16:30)
[2018-04-16] MEDS ORDERED: GLUCAGON FOR INJ 1 MG VIAL (J1610) SC (16:30)
[2018-04-16] MEDS ORDERED: DEXTROSE 50% 50 ML SYRINGE IV (16:30)
[2018-04-16] MEDS ORDERED: ACETAMINOPHEN 650 MG SUPP PR (16:30)
[2018-04-16] MEDS: HumaLOG INSULIN (NovoLOG) PER UNIT SC ×2 (18:04→21:43)
[2018-04-16] MEDS: PIPERACILLIN/TAZOBACTAM SOD 3.375 GM in D5W MINI-BAG PLUS 50 ML IV (18:04)
[2018-04-16 20:58] LABS: BEDSIDE GLUCOSE 272 MG/DL (83-110)
[2018-04-16] MEDS: LACTOBACILLUS ACIDOPHILUS CAP (BACID) PO (21:38)
[2018-04-16] MEDS: SENOKOT S TAB PO (21:39)
[2018-04-16] MEDS: GABAPENTIN 300 MG CAP PO (21:39)
[2018-04-16] MEDS: APIXABAN 5 MG TAB (ELIQUIS) PO (21:40)
[2018-04-16] MEDS: FENOFIBRATE 145 MG TAB (TRICOR) PO (21:40)
[2018-04-16] MEDS: MAGNESIUM OXIDE 400 MG TAB (MAG-OX) PO (21:40)
[2018-04-16] MEDS: LORATADINE 10 MG TAB PO (21:40)
[2018-04-16] MEDS: BACLOFEN 10 MG TAB PO (21:40)
[2018-04-16] MEDS: CARVedilol 3.125 MG TAB PO (21:41)
[2018-04-16] MEDS: NYSTATIN 100,000 UNITS/GM TOPICAL PWD 15 GM TOP (21:42)
[2018-04-16] MEDS: SOLIFENACIN 5 MG TAB PO (21:42)
[2018-04-16] MEDS: LEVEMIR (INSULIN DETEMIR) 1 UNITS/0.01ML SC (21:43)
[2018-04-16] MEDS: ACETAMINOPHEN TAB 650MG DOSE (2X325MG) PO (21:47)
[2018-04-17] MEDS: PIPERACILLIN/TAZOBACTAM SOD 3.375 GM in D5W MINI-BAG PLUS 50 ML IV ×4 (00:09→17:23)
[2018-04-17 06:12] LABS: BASO # 0.1 10^3/uL (0.0-0.2); BASO % 0.6 % (0.0-1.0); EOS # 0.2 10^3/uL (0.0-0.50); EOS % 2.5 % (0.0-3.0); HEMATOCRIT 33.5 % (42.0-52.0); HEMOGLOBIN 11.3 g/dl (13.5-17.5); IMMATURE GRANULOCYTE % 0.5 % (0-3.0); LYMPH # 2.3 10^3/uL (1.5-4.5); MEAN CORPUSCULAR HEMOGLOBIN 28.1 pg (27.0-33.0); MEAN CORPUSCULAR HGB CONC 33.7 g/dl (32.0-36.5); MEAN CORPUSCULAR VOLUME 83.3 fl (80.0-96.0); MONO # 0.7 10^3/uL (0.0-0.8); MONO % 7.7 % (0.0-5.0); NEUTROPHILS # 5.6 10^3/uL (1.8-7.7); NEUTROPHILS % 62.7 % (36.0-66.0); PLATELET COUNT, AUTOMATED 217 10^3/uL (150-450); RED BLOOD COUNT 4.02 10^6/uL (4.30-6.10); RED CELL DISTRIBUTION WIDTH 13.6 % (11.5-14.5); WHITE BLOOD COUNT 8.8 10^3/uL (4.0-10.0)
[2018-04-17 06:42] LABS: ALBUMIN 2.7 GM/DL (3.2-5.2); ALBUMIN/GLOBULIN RATIO 0.66 (1.00-1.93); ALKALINE PHOSPHATASE 65 U/L (45-117); ALT/SGPT 16 U/L (12-78); ANION GAP 7 MEQ/L (8-16); AST/SGOT 14 U/L (7-37); BILIRUBIN,TOTAL 0.3 MG/DL (0.2-1.0); BLOOD UREA NITROGEN 17 MG/DL (7-18); CALCIUM LEVEL 8.8 MG/DL (8.8-10.2); CARBON DIOXIDE LEVEL 27 MEQ/L (21-32); CHLORIDE LEVEL 97 MEQ/L (98-107); CREATININE FOR GFR 1.19 MG/DL (0.70-1.30); GLOMERULAR FILTRATION RATE > 60.0 (>42); GLUCOSE, FASTING 219 MG/DL (70-100); MAGNESIUM LEVEL 1.7 MG/DL (1.8-2.4); POTASSIUM SERUM 4.1 MEQ/L (3.5-5.1); SODIUM LEVEL 131 MEQ/L (136-145); TOTAL PROTEIN 6.8 GM/DL (6.4-8.2)
[2018-04-17] MEDS: HumaLOG INSULIN (NovoLOG) PER UNIT SC ×4 (08:22→20:33)
[2018-04-17] MEDS: NYSTATIN 100,000 UNITS/GM TOPICAL PWD 15 GM TOP ×2 (08:23→21:51)
[2018-04-17] MEDS: APIXABAN 5 MG TAB (ELIQUIS) PO ×2 (08:23→21:49)
[2018-04-17] MEDS: LEVEMIR (INSULIN DETEMIR) 1 UNITS/0.01ML SC ×2 (08:23→21:49)
[2018-04-17] MEDS: MAGNESIUM OXIDE 400 MG TAB (MAG-OX) PO ×2 (08:24→21:50)
[2018-04-17] MEDS: PANTOPRAZOLE 40MG TAB (PROTONIX) PO (08:24)
[2018-04-17] MEDS: GABAPENTIN 300 MG CAP PO ×3 (08:24→21:50)
[2018-04-17] MEDS: BACLOFEN 10 MG TAB PO ×3 (08:24→21:49)
[2018-04-17] MEDS: SENOKOT S TAB PO ×2 (08:24→21:50)
[2018-04-17] MEDS: LACTOBACILLUS ACIDOPHILUS CAP (BACID) PO ×2 (08:27→21:49)
[2018-04-17] MEDS: CARVedilol 3.125 MG TAB PO ×2 (08:27→21:51)
[2018-04-17] MEDS ORDERED: ENOXAPARIN 40 MG/0.4 ML SYRINGE (J1650) SC (09:00)
[2018-04-17] MEDS: NS 1,000 ML IV (12:31)
[2018-04-17 16:28] LABS: BEDSIDE GLUCOSE 220 MG/DL (83-110)
[2018-04-17] MEDS: ACETAMINOPHEN TAB 650MG DOSE (2X325MG) PO ×2 (16:39→21:50)
[2018-04-17 20:24] LABS: BEDSIDE GLUCOSE 206 MG/DL (83-110)
[2018-04-17] MEDS: SOLIFENACIN 5 MG TAB PO (21:49)
[2018-04-17] MEDS: FENOFIBRATE 145 MG TAB (TRICOR) PO (21:49)
[2018-04-17] MEDS: LORATADINE 10 MG TAB PO (21:50)
[2018-04-18] MEDS: PIPERACILLIN/TAZOBACTAM SOD 3.375 GM in D5W MINI-BAG PLUS 50 ML IV ×3 (00:27→12:09)
[2018-04-18] MEDS: NS 1,000 ML IV ×2 (05:29→23:15)
[2018-04-18 06:48] LABS: HEMATOCRIT 35.7 % (42.0-52.0); HEMOGLOBIN 11.9 g/dl (13.5-17.5); MEAN CORPUSCULAR HEMOGLOBIN 28.1 pg (27.0-33.0); MEAN CORPUSCULAR HGB CONC 33.3 g/dl (32.0-36.5); MEAN CORPUSCULAR VOLUME 84.2 fl (80.0-96.0); PLATELET COUNT, AUTOMATED 208 10^3/uL (150-450); RED BLOOD COUNT 4.24 10^6/uL (4.30-6.10); RED CELL DISTRIBUTION WIDTH 13.9 % (11.5-14.5); WHITE BLOOD COUNT 8.1 10^3/uL (4.0-10.0)
[2018-04-18 07:02] LABS: ANION GAP 5 MEQ/L (8-16); BLOOD UREA NITROGEN 16 MG/DL (7-18); CALCIUM LEVEL 9.3 MG/DL (8.8-10.2); CARBON DIOXIDE LEVEL 29 MEQ/L (21-32); CHLORIDE LEVEL 101 MEQ/L (98-107); CREATININE FOR GFR 1.32 MG/DL (0.70-1.30); GLOMERULAR FILTRATION RATE 56.8 (>42); GLUCOSE, FASTING 167 MG/DL (70-100); POTASSIUM SERUM 4.4 MEQ/L (3.5-5.1); SODIUM LEVEL 135 MEQ/L (136-145)
[2018-04-18] MEDS: HumaLOG INSULIN (NovoLOG) PER UNIT SC ×4 (07:58→22:32)
[2018-04-18] MEDS: NYSTATIN 100,000 UNITS/GM TOPICAL PWD 15 GM TOP ×2 (08:01→22:32)
[2018-04-18] MEDS: LEVEMIR (INSULIN DETEMIR) 1 UNITS/0.01ML SC ×2 (08:01→22:33)
[2018-04-18] MEDS: LACTOBACILLUS ACIDOPHILUS CAP (BACID) PO ×2 (08:02→22:30)
[2018-04-18] MEDS: BACLOFEN 10 MG TAB PO ×3 (08:02→22:31)
[2018-04-18] MEDS: GABAPENTIN 300 MG CAP PO ×3 (08:02→22:30)
[2018-04-18] MEDS: CARVedilol 3.125 MG TAB PO ×2 (08:02→22:31)
[2018-04-18] MEDS: PANTOPRAZOLE 40MG TAB (PROTONIX) PO (08:02)
[2018-04-18] MEDS: MAGNESIUM OXIDE 400 MG TAB (MAG-OX) PO ×2 (08:02→22:31)
[2018-04-18] MEDS: SENOKOT S TAB PO ×2 (08:02→22:30)
[2018-04-18] MEDS: APIXABAN 5 MG TAB (ELIQUIS) PO ×2 (08:02→22:30)
[2018-04-18 12:01] LABS: BEDSIDE GLUCOSE 288 MG/DL (83-110)
[2018-04-18] MEDS: ACETAMINOPHEN TAB 650MG DOSE (2X325MG) PO ×2 (18:09→22:33)
[2018-04-18] MEDS: cefTAZidime 1 GM in D5W MINI-BAG PLUS 50 ML IV (18:42)
[2018-04-18 20:26] LABS: BEDSIDE GLUCOSE 293 MG/DL (83-110)
[2018-04-18] MEDS: LORATADINE 10 MG TAB PO (22:30)
[2018-04-18] MEDS: FENOFIBRATE 145 MG TAB (TRICOR) PO (22:30)
[2018-04-18] MEDS: SOLIFENACIN 5 MG TAB PO (22:31)
[2018-04-18] MEDS: NORCO, ANEXSIA 5/325MG TABLET (HYDROcodone/ACETAMINOPHEN) PO (23:46)
[2018-04-19] MEDS: cefTAZidime 1 GM in D5W MINI-BAG PLUS 50 ML IV ×2 (05:14→17:38)
[2018-04-19 05:55] LABS: BEDSIDE GLUCOSE 287 MG/DL (83-110)
[2018-04-19 05:55] LABS: BEDSIDE GLUCOSE 191 MG/DL (83-110)
[2018-04-19 05:55] LABS: BEDSIDE GLUCOSE 134 MG/DL (83-110)
[2018-04-19 06:18] LABS: HEMATOCRIT 30.9 % (42.0-52.0); HEMOGLOBIN 10.5 g/dl (13.5-17.5); MEAN CORPUSCULAR HEMOGLOBIN 27.7 pg (27.0-33.0); MEAN CORPUSCULAR VOLUME 81.5 fl (80.0-96.0); PLATELET COUNT, AUTOMATED 211 10^3/uL (150-450); RED BLOOD COUNT 3.79 10^6/uL (4.30-6.10); RED CELL DISTRIBUTION WIDTH 13.9 % (11.5-14.5); WHITE BLOOD COUNT 9.1 10^3/uL (4.0-10.0)
[2018-04-19 06:34] LABS: ANION GAP 6 MEQ/L (8-16); BLOOD UREA NITROGEN 16 MG/DL (7-18); CALCIUM LEVEL 8.6 MG/DL (8.8-10.2); CARBON DIOXIDE LEVEL 27 MEQ/L (21-32); CHLORIDE LEVEL 102 MEQ/L (98-107); CREATININE FOR GFR 1.18 MG/DL (0.70-1.30); GLOMERULAR FILTRATION RATE > 60.0 (>42); GLUCOSE, FASTING 123 MG/DL (70-100); POTASSIUM SERUM 4.3 MEQ/L (3.5-5.1); SODIUM LEVEL 135 MEQ/L (136-145)
[2018-04-19] MEDS: HumaLOG INSULIN (NovoLOG) PER UNIT SC ×4 (08:44→21:22)
[2018-04-19] MEDS: BACLOFEN 10 MG TAB PO ×3 (08:45→21:22)
[2018-04-19] MEDS: MAGNESIUM OXIDE 400 MG TAB (MAG-OX) PO ×2 (08:45→21:21)
[2018-04-19] MEDS: LEVEMIR (INSULIN DETEMIR) 1 UNITS/0.01ML SC ×2 (08:45→21:23)
[2018-04-19] MEDS: SENOKOT S TAB PO ×2 (08:45→21:22)
[2018-04-19] MEDS: GABAPENTIN 300 MG CAP PO ×3 (08:45→21:21)
[2018-04-19] MEDS: PANTOPRAZOLE 40MG TAB (PROTONIX) PO (08:46)
[2018-04-19] MEDS: CARVedilol 3.125 MG TAB PO ×2 (08:46→21:22)
[2018-04-19] MEDS: LACTOBACILLUS ACIDOPHILUS CAP (BACID) PO ×2 (08:46→21:21)
[2018-04-19] MEDS: APIXABAN 5 MG TAB (ELIQUIS) PO ×2 (08:46→21:22)
[2018-04-19] MEDS: NYSTATIN 100,000 UNITS/GM TOPICAL PWD 15 GM TOP ×2 (08:46→21:20)
[2018-04-19 11:39] LABS: BEDSIDE GLUCOSE 142 MG/DL (83-110)
[2018-04-19] MEDS: NORCO, ANEXSIA 5/325MG TABLET (HYDROcodone/ACETAMINOPHEN) PO ×2 (15:09→21:26)
[2018-04-19 17:20] LABS: BEDSIDE GLUCOSE 240 MG/DL (83-110)
[2018-04-19 20:43] LABS: BEDSIDE GLUCOSE 314 MG/DL (83-110)
[2018-04-19] MEDS: SOLIFENACIN 5 MG TAB PO (21:21)
[2018-04-19] MEDS: FENOFIBRATE 145 MG TAB (TRICOR) PO (21:21)
[2018-04-19] MEDS: LORATADINE 10 MG TAB PO (21:22)
[2018-04-20] MEDS: cefTAZidime 1 GM in D5W MINI-BAG PLUS 50 ML IV ×2 (05:01→18:14)
[2018-04-20 06:27] LABS: HEMATOCRIT 33.4 % (42.0-52.0); HEMOGLOBIN 11.2 g/dl (13.5-17.5); MEAN CORPUSCULAR HEMOGLOBIN 27.9 pg (27.0-33.0); MEAN CORPUSCULAR HGB CONC 33.5 g/dl (32.0-36.5); MEAN CORPUSCULAR VOLUME 83.3 fl (80.0-96.0); PLATELET COUNT, AUTOMATED 237 10^3/uL (150-450); RED BLOOD COUNT 4.01 10^6/uL (4.30-6.10); RED CELL DISTRIBUTION WIDTH 14.2 % (11.5-14.5); WHITE BLOOD COUNT 9.1 10^3/uL (4.0-10.0)
[2018-04-20 06:36] LABS: ANION GAP 4 MEQ/L (8-16); BLOOD UREA NITROGEN 15 MG/DL (7-18); CALCIUM LEVEL 9.3 MG/DL (8.8-10.2); CARBON DIOXIDE LEVEL 29 MEQ/L (21-32); CHLORIDE LEVEL 103 MEQ/L (98-107); CREATININE FOR GFR 1.39 MG/DL (0.70-1.30); GLOMERULAR FILTRATION RATE 53.5 (>42); GLUCOSE, FASTING 147 MG/DL (70-100); POTASSIUM SERUM 4.5 MEQ/L (3.5-5.1); SODIUM LEVEL 136 MEQ/L (136-145)
[2018-04-20] MEDS: LEVEMIR (INSULIN DETEMIR) 1 UNITS/0.01ML SC ×2 (08:00→20:33)
[2018-04-20] MEDS: HumaLOG INSULIN (NovoLOG) PER UNIT SC ×4 (08:00→20:33)
[2018-04-20] MEDS: NYSTATIN 100,000 UNITS/GM TOPICAL PWD 15 GM TOP ×2 (08:00→20:37)
[2018-04-20] MEDS: CARVedilol 3.125 MG TAB PO ×2 (08:01→20:34)
[2018-04-20] MEDS: APIXABAN 5 MG TAB (ELIQUIS) PO ×2 (08:01→20:35)
[2018-04-20] MEDS: GABAPENTIN 300 MG CAP PO ×3 (08:01→20:35)
[2018-04-20] MEDS: PANTOPRAZOLE 40MG TAB (PROTONIX) PO (08:01)
[2018-04-20] MEDS: LACTOBACILLUS ACIDOPHILUS CAP (BACID) PO ×2 (08:01→20:35)
[2018-04-20] MEDS: SENOKOT S TAB PO ×2 (08:01→20:35)
[2018-04-20] MEDS: BACLOFEN 10 MG TAB PO ×3 (08:01→20:35)
[2018-04-20] MEDS: MAGNESIUM OXIDE 400 MG TAB (MAG-OX) PO ×2 (08:02→20:35)
[2018-04-20 12:10] LABS: BEDSIDE GLUCOSE 190 MG/DL (83-110)
[2018-04-20 16:35] LABS: BEDSIDE GLUCOSE 231 MG/DL (83-110)
[2018-04-20 20:23] LABS: BEDSIDE GLUCOSE 340 MG/DL (83-110)
[2018-04-20] MEDS: FENOFIBRATE 145 MG TAB (TRICOR) PO (20:35)
[2018-04-20] MEDS: LORATADINE 10 MG TAB PO (20:35)
[2018-04-20] MEDS: SOLIFENACIN 5 MG TAB PO (20:35)
[2018-04-20] MEDS: NORCO, ANEXSIA 5/325MG TABLET (HYDROcodone/ACETAMINOPHEN) PO (20:37)
[2018-04-21] MEDS ORDERED: SODIUM CHLORIDE NASAL 0.65% SPRAY BTL (OCEAN) (04:30)
[2018-04-21] MEDS: cefTAZidime 1 GM in D5W MINI-BAG PLUS 50 ML IV ×2 (05:31→18:12)
[2018-04-21 06:40] LABS: HEMATOCRIT 30.8 % (42.0-52.0); HEMOGLOBIN 10.2 g/dl (13.5-17.5); MEAN CORPUSCULAR HEMOGLOBIN 27.8 pg (27.0-33.0); MEAN CORPUSCULAR HGB CONC 33.1 g/dl (32.0-36.5); MEAN CORPUSCULAR VOLUME 83.9 fl (80.0-96.0); PLATELET COUNT, AUTOMATED 216 10^3/uL (150-450); RED BLOOD COUNT 3.67 10^6/uL (4.30-6.10); RED CELL DISTRIBUTION WIDTH 14.2 % (11.5-14.5); WHITE BLOOD COUNT 10.9 10^3/uL (4.0-10.0)
[2018-04-21 06:56] LABS: ANION GAP 6 MEQ/L (8-16); BLOOD UREA NITROGEN 17 MG/DL (7-18); CALCIUM LEVEL 9.1 MG/DL (8.8-10.2); CARBON DIOXIDE LEVEL 29 MEQ/L (21-32); CHLORIDE LEVEL 103 MEQ/L (98-107); CREATININE FOR GFR 1.31 MG/DL (0.70-1.30); GLOMERULAR FILTRATION RATE 57.3 (>42); GLUCOSE, FASTING 154 MG/DL (70-100); POTASSIUM SERUM 4.3 MEQ/L (3.5-5.1); SODIUM LEVEL 138 MEQ/L (136-145)
[2018-04-21] MEDS: ACETAMINOPHEN TAB 650MG DOSE (2X325MG) PO (07:04)
[2018-04-21] MEDS: LEVEMIR (INSULIN DETEMIR) 1 UNITS/0.01ML SC ×2 (08:36→21:42)
[2018-04-21] MEDS: SENOKOT S TAB PO ×2 (08:36→21:41)
[2018-04-21] MEDS: HumaLOG INSULIN (NovoLOG) PER UNIT SC ×4 (08:36→21:42)
[2018-04-21] MEDS: PANTOPRAZOLE 40MG TAB (PROTONIX) PO (08:36)
[2018-04-21] MEDS: LACTOBACILLUS ACIDOPHILUS CAP (BACID) PO ×2 (08:36→21:40)
[2018-04-21] MEDS: BACLOFEN 10 MG TAB PO ×3 (08:36→21:40)
[2018-04-21] MEDS: GABAPENTIN 300 MG CAP PO ×3 (08:37→21:40)
[2018-04-21] MEDS: MAGNESIUM OXIDE 400 MG TAB (MAG-OX) PO ×2 (08:37→21:40)
[2018-04-21] MEDS: APIXABAN 5 MG TAB (ELIQUIS) PO ×2 (08:38→21:40)
[2018-04-21] MEDS: CARVedilol 3.125 MG TAB PO ×2 (08:38→21:41)
[2018-04-21] MEDS: NYSTATIN 100,000 UNITS/GM TOPICAL PWD 15 GM TOP ×2 (08:39→21:43)
[2018-04-21 12:01] LABS: BEDSIDE GLUCOSE 294 MG/DL (83-110)
[2018-04-21 16:49] LABS: BEDSIDE GLUCOSE 286 MG/DL (83-110)
[2018-04-21 20:22] LABS: BEDSIDE GLUCOSE 355 MG/DL (83-110)
[2018-04-21] MEDS: SOLIFENACIN 5 MG TAB PO (21:40)
[2018-04-21] MEDS: LORATADINE 10 MG TAB PO (21:41)
[2018-04-21] MEDS: FENOFIBRATE 145 MG TAB (TRICOR) PO (21:41)
[2018-04-22] MEDS: cefTAZidime 1 GM in D5W MINI-BAG PLUS 50 ML IV ×2 (05:02→17:27)
[2018-04-22 06:22] LABS: HEMATOCRIT 31.4 % (42.0-52.0); HEMOGLOBIN 10.1 g/dl (13.5-17.5); MEAN CORPUSCULAR HEMOGLOBIN 27.6 pg (27.0-33.0); MEAN CORPUSCULAR HGB CONC 32.2 g/dl (32.0-36.5); MEAN CORPUSCULAR VOLUME 85.8 fl (80.0-96.0); PLATELET COUNT, AUTOMATED 209 10^3/uL (150-450); RED BLOOD COUNT 3.66 10^6/uL (4.30-6.10); WHITE BLOOD COUNT 9.1 10^3/uL (4.0-10.0)
[2018-04-22 06:37] LABS: ANION GAP 7 MEQ/L (8-16); BLOOD UREA NITROGEN 15 MG/DL (7-18); CALCIUM LEVEL 9.1 MG/DL (8.8-10.2); CARBON DIOXIDE LEVEL 28 MEQ/L (21-32); CHLORIDE LEVEL 104 MEQ/L (98-107); CREATININE FOR GFR 1.13 MG/DL (0.70-1.30); GLOMERULAR FILTRATION RATE > 60.0 (>42); GLUCOSE, FASTING 121 MG/DL (70-100); POTASSIUM SERUM 4.1 MEQ/L (3.5-5.1); SODIUM LEVEL 139 MEQ/L (136-145)
[2018-04-22] MEDS: HumaLOG INSULIN (NovoLOG) PER UNIT SC ×4 (08:29→21:00)
[2018-04-22] MEDS: LEVEMIR (INSULIN DETEMIR) 1 UNITS/0.01ML SC ×2 (08:30→20:52)
[2018-04-22] MEDS: GABAPENTIN 300 MG CAP PO ×3 (08:31→20:50)
[2018-04-22] MEDS: BACLOFEN 10 MG TAB PO ×3 (08:31→20:51)
[2018-04-22] MEDS: SENOKOT S TAB PO ×2 (08:31→20:50)
[2018-04-22] MEDS: MAGNESIUM OXIDE 400 MG TAB (MAG-OX) PO ×2 (08:31→20:51)
[2018-04-22] MEDS: PANTOPRAZOLE 40MG TAB (PROTONIX) PO (08:31)
[2018-04-22] MEDS: LACTOBACILLUS ACIDOPHILUS CAP (BACID) PO ×2 (08:31→20:50)
[2018-04-22] MEDS: APIXABAN 5 MG TAB (ELIQUIS) PO ×2 (08:31→20:51)
[2018-04-22] MEDS: NYSTATIN 100,000 UNITS/GM TOPICAL PWD 15 GM TOP ×2 (08:32→20:52)
[2018-04-22] MEDS: CARVedilol 3.125 MG TAB PO ×2 (08:32→20:51)
[2018-04-22 11:31] LABS: BEDSIDE GLUCOSE 143 MG/DL (83-110)
[2018-04-22 16:39] LABS: BEDSIDE GLUCOSE 159 MG/DL (83-110)
[2018-04-22 20:15] LABS: BEDSIDE GLUCOSE 201 MG/DL (83-110)
[2018-04-22] MEDS: FENOFIBRATE 145 MG TAB (TRICOR) PO (20:50)
[2018-04-22] MEDS: LORATADINE 10 MG TAB PO (20:51)
[2018-04-22] MEDS: SOLIFENACIN 5 MG TAB PO (20:52)
[2018-04-23] MEDS: cefTAZidime 1 GM in D5W MINI-BAG PLUS 50 ML IV ×2 (06:12→17:12)
[2018-04-23 07:44] LABS: HEMATOCRIT 31.6 % (42.0-52.0); HEMOGLOBIN 10.2 g/dl (13.5-17.5); MEAN CORPUSCULAR HEMOGLOBIN 27.9 pg (27.0-33.0); MEAN CORPUSCULAR HGB CONC 32.3 g/dl (32.0-36.5); MEAN CORPUSCULAR VOLUME 86.6 fl (80.0-96.0); PLATELET COUNT, AUTOMATED 202 10^3/uL (150-450); RED BLOOD COUNT 3.65 10^6/uL (4.30-6.10); WHITE BLOOD COUNT 6.6 10^3/uL (4.0-10.0)
[2018-04-23 08:02] LABS: ANION GAP 7 MEQ/L (8-16); BLOOD UREA NITROGEN 16 MG/DL (7-18); CALCIUM LEVEL 9.1 MG/DL (8.8-10.2); CARBON DIOXIDE LEVEL 30 MEQ/L (21-32); CHLORIDE LEVEL 102 MEQ/L (98-107); CREATININE FOR GFR 1.07 MG/DL (0.70-1.30); GLOMERULAR FILTRATION RATE > 60.0 (>42); GLUCOSE, FASTING 167 MG/DL (70-100); SODIUM LEVEL 139 MEQ/L (136-145)
[2018-04-23] MEDS: LEVEMIR (INSULIN DETEMIR) 1 UNITS/0.01ML SC ×2 (08:18→21:18)
[2018-04-23] MEDS: HumaLOG INSULIN (NovoLOG) PER UNIT SC ×4 (08:18→21:18)
[2018-04-23] MEDS: APIXABAN 5 MG TAB (ELIQUIS) PO ×2 (08:19→21:16)
[2018-04-23] MEDS: SENOKOT S TAB PO ×2 (08:19→21:17)
[2018-04-23] MEDS: LACTOBACILLUS ACIDOPHILUS CAP (BACID) PO ×2 (08:19→21:16)
[2018-04-23] MEDS: PANTOPRAZOLE 40MG TAB (PROTONIX) PO (08:19)
[2018-04-23] MEDS: CARVedilol 3.125 MG TAB PO ×2 (08:19→21:17)
[2018-04-23] MEDS: GABAPENTIN 300 MG CAP PO ×3 (08:19→21:16)
[2018-04-23] MEDS: BACLOFEN 10 MG TAB PO ×3 (08:20→21:19)
[2018-04-23] MEDS: NYSTATIN 100,000 UNITS/GM TOPICAL PWD 15 GM TOP ×2 (08:20→21:19)
[2018-04-23] MEDS: MAGNESIUM OXIDE 400 MG TAB (MAG-OX) PO ×2 (08:20→21:16)
[2018-04-23 11:47] LABS: BEDSIDE GLUCOSE 304 MG/DL (83-110)
[2018-04-23 16:42] LABS: BEDSIDE GLUCOSE 242 MG/DL (83-110)
[2018-04-23 20:42] LABS: BEDSIDE GLUCOSE 279 MG/DL (83-110)
[2018-04-23] MEDS: SOLIFENACIN 5 MG TAB PO (21:16)
[2018-04-23] MEDS: LORATADINE 10 MG TAB PO (21:16)
[2018-04-23] MEDS: FENOFIBRATE 145 MG TAB (TRICOR) PO (21:17)
[2018-04-24] MEDS: cefTAZidime 1 GM in D5W MINI-BAG PLUS 50 ML IV (06:08)
[2018-04-24 06:16] LABS: HEMATOCRIT 31.6 % (42.0-52.0); HEMOGLOBIN 10.3 g/dl (13.5-17.5); MEAN CORPUSCULAR HEMOGLOBIN 28.1 pg (27.0-33.0); MEAN CORPUSCULAR HGB CONC 32.6 g/dl (32.0-36.5); MEAN CORPUSCULAR VOLUME 86.1 fl (80.0-96.0); PLATELET COUNT, AUTOMATED 211 10^3/uL (150-450); RED BLOOD COUNT 3.67 10^6/uL (4.30-6.10); RED CELL DISTRIBUTION WIDTH 13.8 % (11.5-14.5); WHITE BLOOD COUNT 5.4 10^3/uL (4.0-10.0)
[2018-04-24 06:28] LABS: ANION GAP 4 MEQ/L (8-16); BLOOD UREA NITROGEN 15 MG/DL (7-18); CARBON DIOXIDE LEVEL 31 MEQ/L (21-32); CHLORIDE LEVEL 104 MEQ/L (98-107); CREATININE FOR GFR 1.08 MG/DL (0.70-1.30); GLOMERULAR FILTRATION RATE > 60.0 (>42); GLUCOSE, FASTING 72 MG/DL (70-100); POTASSIUM SERUM 3.8 MEQ/L (3.5-5.1); SODIUM LEVEL 139 MEQ/L (136-145)
[2018-04-24] MEDS: HumaLOG INSULIN (NovoLOG) PER UNIT SC (07:30)
[2018-04-24] MEDS: LEVEMIR (INSULIN DETEMIR) 1 UNITS/0.01ML SC (08:57)
[2018-04-24] MEDS: MAGNESIUM OXIDE 400 MG TAB (MAG-OX) PO (08:57)
[2018-04-24] MEDS: GABAPENTIN 300 MG CAP PO (08:58)
[2018-04-24] MEDS: LACTOBACILLUS ACIDOPHILUS CAP (BACID) PO (08:58)
[2018-04-24] MEDS: PANTOPRAZOLE 40MG TAB (PROTONIX) PO (08:58)
[2018-04-24] MEDS: CARVedilol 3.125 MG TAB PO (08:59)
[2018-04-24] MEDS: APIXABAN 5 MG TAB (ELIQUIS) PO (08:59)
[2018-04-24] MEDS: SENOKOT S TAB PO (08:59)
[2018-04-24] MEDS: BACLOFEN 10 MG TAB PO (08:59)
[2018-04-24] MEDS: NYSTATIN 100,000 UNITS/GM TOPICAL PWD 15 GM TOP (09:00)
[2018-04-24 11:38] LABS: BEDSIDE GLUCOSE 140 MG/DL (83-110)
== END 2018-04-24 12:15 | disposition home health service (06) | DRG 698 ==
LOC: M ED 08:07 → M ED INP 16:17 → M MSPAV 17:38
DX: T83.511A Infection and inflammatory reaction due to indwelling urethral catheter, initial encounter (principal); G93.41 Metabolic encephalopathy; E22.2 Syndrome of inappropriate secretion of antidiuretic hormone; I50.30 Unspecified diastolic (congestive) heart failure; I13.0 Hypertensive heart and chronic kidney disease with heart failure and stage 1 through stage 4 chronic kidney disease, or unspecified chronic kidney disease; N39.0 Urinary tract infection, site not specified; T42.8X5A Adverse effect of antiparkinsonism drugs and other central muscle-tone depressants, initial encounter; M62.838 Other muscle spasm; E11.22 Type 2 diabetes mellitus with diabetic chronic kidney disease; B96.20 Unspecified Escherichia coli [E. coli] as the cause of diseases classified elsewhere; M06.9 Rheumatoid arthritis, unspecified; B96.5 Pseudomonas (aeruginosa) (mallei) (pseudomallei) as the cause of diseases classified elsewhere; G43.909 Migraine, unspecified, not intractable, without status migrainosus; N18.3 Chronic kidney disease, stage 3 (moderate); E11.21 Type 2 diabetes mellitus with diabetic nephropathy; E55.9 Vitamin D deficiency, unspecified; I48.91 Unspecified atrial fibrillation; D50.9 Iron deficiency anemia, unspecified; G47.33 Obstructive sleep apnea (adult) (pediatric); N52.9 Male erectile dysfunction, unspecified; E29.1 Testicular hypofunction; Z96.0 Presence of urogenital implants; Z88.8 Allergy status to other drugs, medicaments and biological substances; Z88.5 Allergy status to narcotic agent; Z96.652 Presence of left artificial knee joint; Z96.641 Presence of right artificial hip joint; Z95.0 Presence of cardiac pacemaker; Z87.440 Personal history of urinary (tract) infections; Z79.4 Long term (current) use of insulin; Z79.01 Long term (current) use of anticoagulants; Z79.899 Other long term (current) drug therapy; Y82.9 Unspecified medical devices associated with adverse incidents

== ENCOUNTER 2018-05-02 18:11 | Inpatient (IN) | payer MEDICARE, MEDICAID ==
[2018-05-02 19:56] LABS: BEDSIDE GLUCOSE 121 MG/DL (83-110)
[2018-05-02 20:28] LABS: BASO % 0.3 % (0.0-1.0); EOS # 0.2 10^3/uL (0.0-0.50); EOS % 1.6 % (0.0-3.0); HEMOGLOBIN 11.6 g/dl (13.5-17.5); IMMATURE GRANULOCYTE % 0.3 % (0-3.0); LYMPH # 2.4 10^3/uL (1.5-4.5); LYMPH % 21.3 % (24.0-44.0); MEAN CORPUSCULAR HEMOGLOBIN 27.9 pg (27.0-33.0); MEAN CORPUSCULAR HGB CONC 32.2 g/dl (32.0-36.5); MEAN CORPUSCULAR VOLUME 86.5 fl (80.0-96.0); MONO # 0.7 10^3/uL (0.0-0.8); MONO % 6.3 % (0.0-5.0); NEUTROPHILS # 7.9 10^3/uL (1.8-7.7); NEUTROPHILS % 70.2 % (36.0-66.0); PLATELET COUNT, AUTOMATED 253 10^3/uL (150-450); RED BLOOD COUNT 4.16 10^6/uL (4.30-6.10); RED CELL DISTRIBUTION WIDTH 14.1 % (11.5-14.5); WHITE BLOOD COUNT 11.2 10^3/uL (4.0-10.0)
[2018-05-02 20:38] LABS: OSMOLALITY SERUM 293 MOSM/KG (280-301)
[2018-05-02 20:43] LABS: INR 1.34; PROTHROMBIN TIME 16.8 SECONDS (12.1-14.4)
[2018-05-02 20:44] LABS: APPEARANCE, URINE CLEAR (CLEAR); BACTERIA, URINE AUTO NEGATIVE (NEGATIVE); BILIRUBIN, URINE AUTO NEGATIVE (NEGATIVE); BLOOD, URINE BLOOD NEGATIVE (NEGATIVE); COLOR, URINE YELLOW (YELLOW); GLUCOSE, URINE (UA) AUTO NEGATIVE (NEGATIVE); KETONE, URINE AUTO NEGATIVE (NEGATIVE); LEUKOCYTE ESTERASE, URINE AUTO 3+ (NEGATIVE); MUCUS, URINE SMALL (NEGATIVE); NITRITE, URINE AUTO NEGATIVE (NEGATIVE); PARTIAL THROMBOPLASTIN TIME 42.6 SECONDS (25.4-37.6); PROTEIN, URINE AUTO 1+ mg/dL (NEGATIVE); RBC, URINE AUTO 2 /HPF (0-3); SPECIFIC GRAVITY URINE AUTO 1.006 (1.002-1.035); SQUAMOUS EPITHELIAL CELL UR AU 0 /HPF (0-6); UROBILINOGEN, URINE AUTO 0.2 mg/dL (0.0-2.0); WBC, URINE AUTO 29 /HPF (0-3)
[2018-05-02 20:49] LABS: ALBUMIN 3.2 GM/DL (3.2-5.2); ALKALINE PHOSPHATASE 68 U/L (45-117); ALT/SGPT 16 U/L (12-78); ANION GAP 8 MEQ/L (8-16); AST/SGOT 26 U/L (7-37); BILIRUBIN,DIRECT < 0.1 MG/DL (0.0-0.2); BILIRUBIN,TOTAL 0.4 MG/DL (0.2-1.0); BLOOD UREA NITROGEN 32 MG/DL (7-18); CALCIUM LEVEL 9.2 MG/DL (8.8-10.2); CARBON DIOXIDE LEVEL 30 MEQ/L (21-32); CHLORIDE LEVEL 98 MEQ/L (98-107); CPK CREATINE PHOSPHOKINASE 151 U/L (39-308); CREATININE FOR GFR 1.61 MG/DL (0.70-1.30); GLOMERULAR FILTRATION RATE 45.1 (>42); GLUCOSE, FASTING 100 MG/DL (70-100); SODIUM LEVEL 136 MEQ/L (136-145); TOTAL PROTEIN 7.8 GM/DL (6.4-8.2); TROPONIN I 0.02 NG/ML (< 0.10)
[2018-05-02 20:51] LABS: POTASSIUM SERUM 5.2 MEQ/L (3.5-5.1)
[2018-05-02 20:52] LABS: CK-MB VALUE MASS 2.1 NG/ML (<3.6); MB/CK RELATIVE INDEX 1.39 (< OR =4)
[2018-05-02 20:55] LABS: NT-PRO BNP 1203 PG/ML (<125)
[2018-05-02] MEDS: NS 1,000 ML IV (21:56)
[2018-05-02] MEDS ORDERED: SIMETHICONE 80 MG CHEW TAB PO (23:30)
[2018-05-02] MEDS ORDERED: CLOTRIMAZOLE 1% TOPICAL CREAM 30GM TOP (23:30)
[2018-05-02] MEDS ORDERED: NYSTATIN 100,000 UNITS/GM TOPICAL PWD 15 GM TOP (23:30)
[2018-05-02] MEDS ORDERED: BISACODYL 10 MG SUPP PR (23:30)
[2018-05-02] MEDS: LEVEMIR (INSULIN DETEMIR) 1 UNITS/0.01ML SC (23:40)
[2018-05-03 00:54] LABS: BEDSIDE GLUCOSE 81 MG/DL (83-110)
[2018-05-03] MEDS: CARVedilol 3.125 MG TAB PO ×3 (00:56→21:00)
[2018-05-03] MEDS: BACLOFEN 10 MG TAB PO ×2 (00:56→08:53)
[2018-05-03] MEDS: SOLIFENACIN 5 MG TAB PO ×2 (00:56→20:24)
[2018-05-03] MEDS: MAGNESIUM OXIDE 400 MG TAB (MAG-OX) PO ×3 (00:57→20:24)
[2018-05-03] MEDS: BISACODYL 10 MG SUPP PR (00:58)
[2018-05-03] MEDS: LORATADINE 10 MG TAB PO ×2 (01:11→20:24)
[2018-05-03] MEDS: GABAPENTIN 300 MG CAP PO ×4 (01:12→20:24)
[2018-05-03] MEDS: APIXABAN 5 MG TAB (ELIQUIS) PO ×3 (01:12→20:23)
[2018-05-03 04:16] LABS: CREATININE,RANDOM URINE 29.1 MG/DL
[2018-05-03 04:16] LABS: SODIUM,RANDOM URINE 43 MEQ/L
[2018-05-03] MEDS: NS 1,000 ML IV (05:28)
[2018-05-03 05:50] LABS: BEDSIDE GLUCOSE 115 MG/DL (83-110)
[2018-05-03 06:38] LABS: CPK CREATINE PHOSPHOKINASE 97 U/L (39-308)
[2018-05-03 07:05] LABS: ANION GAP 10 MEQ/L (8-16); BLOOD UREA NITROGEN 29 MG/DL (7-18); CALCIUM LEVEL 9.2 MG/DL (8.8-10.2); CARBON DIOXIDE LEVEL 28 MEQ/L (21-32); CHLORIDE LEVEL 102 MEQ/L (98-107); CREATININE FOR GFR 1.37 MG/DL (0.70-1.30); GLOMERULAR FILTRATION RATE 54.4 (>42); GLUCOSE, FASTING 102 MG/DL (70-100); POTASSIUM SERUM 3.7 MEQ/L (3.5-5.1); SODIUM LEVEL 140 MEQ/L (136-145)
[2018-05-03 07:58] LABS: BEDSIDE GLUCOSE 104 MG/DL (83-110)
[2018-05-03] MEDS: ATORVASTATIN 20 MG TAB PO (08:52)
[2018-05-03] MEDS: PANTOPRAZOLE 40MG TAB (PROTONIX) PO (08:53)
[2018-05-03] MEDS: FENOFIBRATE 145 MG TAB (TRICOR) PO (08:53)
[2018-05-03] MEDS: LEVEMIR (INSULIN DETEMIR) 1 UNITS/0.01ML SC ×2 (08:58→20:24)
[2018-05-03 10:17] LABS: MAGNESIUM LEVEL 1.8 MG/DL (1.8-2.4)
[2018-05-03 11:37] LABS: BEDSIDE GLUCOSE 118 MG/DL (83-110)
[2018-05-03] MEDS ORDERED: KCL 20MEQ IN 0.45NS 1000ML 1,000 ML IV (13:00)
[2018-05-03] MEDS: FLUCONAZOLE 100 MG TAB PO (13:54)
[2018-05-03 17:25] LABS: BEDSIDE GLUCOSE 205 MG/DL (83-110)
[2018-05-03 21:06] LABS: BEDSIDE GLUCOSE 306 MG/DL (83-110)
[2018-05-04 06:44] LABS: BASO % 0.6 % (0.0-1.0); EOS # 0.2 10^3/uL (0.0-0.50); EOS % 2.7 % (0.0-3.0); HEMATOCRIT 31.9 % (42.0-52.0); HEMOGLOBIN 10.1 g/dl (13.5-17.5); IMMATURE GRANULOCYTE % 0.3 % (0-3.0); LYMPH # 2.3 10^3/uL (1.5-4.5); LYMPH % 32.2 % (24.0-44.0); MEAN CORPUSCULAR HEMOGLOBIN 27.4 pg (27.0-33.0); MEAN CORPUSCULAR HGB CONC 31.7 g/dl (32.0-36.5); MEAN CORPUSCULAR VOLUME 86.4 fl (80.0-96.0); MONO # 0.6 10^3/uL (0.0-0.8); MONO % 7.7 % (0.0-5.0); NEUTROPHILS # 4.1 10^3/uL (1.8-7.7); NEUTROPHILS % 56.5 % (36.0-66.0); PLATELET COUNT, AUTOMATED 213 10^3/uL (150-450); RED BLOOD COUNT 3.69 10^6/uL (4.30-6.10); RED CELL DISTRIBUTION WIDTH 14.1 % (11.5-14.5); WHITE BLOOD COUNT 7.2 10^3/uL (4.0-10.0)
[2018-05-04 07:04] LABS: ALBUMIN 2.7 GM/DL (3.2-5.2); ALBUMIN/GLOBULIN RATIO 0.63 (1.00-1.93); ALKALINE PHOSPHATASE 73 U/L (45-117); ALT/SGPT 14 U/L (12-78); ANION GAP 7 MEQ/L (8-16); AST/SGOT 14 U/L (7-37); BILIRUBIN,TOTAL 0.3 MG/DL (0.2-1.0); BLOOD UREA NITROGEN 24 MG/DL (7-18); CALCIUM LEVEL 9.1 MG/DL (8.8-10.2); CARBON DIOXIDE LEVEL 30 MEQ/L (21-32); CHLORIDE LEVEL 104 MEQ/L (98-107); CREATININE FOR GFR 1.38 MG/DL (0.70-1.30); GLOMERULAR FILTRATION RATE 53.9 (>42); GLUCOSE, FASTING 123 MG/DL (70-100); POTASSIUM SERUM 4.2 MEQ/L (3.5-5.1); SODIUM LEVEL 141 MEQ/L (136-145)
[2018-05-04] MEDS: GABAPENTIN 300 MG CAP PO ×3 (09:28→19:59)
[2018-05-04] MEDS: PANTOPRAZOLE 40MG TAB (PROTONIX) PO (09:28)
[2018-05-04] MEDS: FLUCONAZOLE 100 MG TAB PO (09:28)
[2018-05-04] MEDS: APIXABAN 5 MG TAB (ELIQUIS) PO ×2 (09:28→19:59)
[2018-05-04] MEDS: LEVEMIR (INSULIN DETEMIR) 1 UNITS/0.01ML SC ×2 (09:28→20:01)
[2018-05-04] MEDS: ATORVASTATIN 20 MG TAB PO (09:28)
[2018-05-04] MEDS: MAGNESIUM OXIDE 400 MG TAB (MAG-OX) PO ×2 (09:29→20:00)
[2018-05-04] MEDS: CARVedilol 3.125 MG TAB PO ×2 (09:39→20:00)
[2018-05-04] MEDS: NS 1,000 ML IV (11:22)
[2018-05-04 12:16] LABS: BEDSIDE GLUCOSE 200 MG/DL (83-110)
[2018-05-04 17:33] LABS: BEDSIDE GLUCOSE 215 MG/DL (83-110)
[2018-05-04 19:53] LABS: BEDSIDE GLUCOSE 274 MG/DL (83-110)
[2018-05-04] MEDS: LORATADINE 10 MG TAB PO (19:59)
[2018-05-04] MEDS: SOLIFENACIN 5 MG TAB PO (20:00)
[2018-05-04] MEDS: ACETAMINOPHEN TAB 650MG DOSE (2X325MG) PO (23:20)
[2018-05-05 06:26] LABS: BASO % 0.5 % (0.0-1.0); EOS # 0.3 10^3/uL (0.0-0.50); EOS % 3.6 % (0.0-3.0); HEMATOCRIT 31.6 % (42.0-52.0); HEMOGLOBIN 10.2 g/dl (13.5-17.5); IMMATURE GRANULOCYTE % 0.5 % (0-3.0); LYMPH # 2.7 10^3/uL (1.5-4.5); LYMPH % 37.4 % (24.0-44.0); MEAN CORPUSCULAR HEMOGLOBIN 27.9 pg (27.0-33.0); MEAN CORPUSCULAR HGB CONC 32.3 g/dl (32.0-36.5); MEAN CORPUSCULAR VOLUME 86.6 fl (80.0-96.0); MONO # 0.6 10^3/uL (0.0-0.8); MONO % 8.6 % (0.0-5.0); NEUTROPHILS # 3.6 10^3/uL (1.8-7.7); NEUTROPHILS % 49.4 % (36.0-66.0); PLATELET COUNT, AUTOMATED 218 10^3/uL (150-450); RED BLOOD COUNT 3.65 10^6/uL (4.30-6.10); RED CELL DISTRIBUTION WIDTH 14.2 % (11.5-14.5); WHITE BLOOD COUNT 7.3 10^3/uL (4.0-10.0)
[2018-05-05 06:43] LABS: ALBUMIN 2.7 GM/DL (3.2-5.2); ALBUMIN/GLOBULIN RATIO 0.64 (1.00-1.93); ALKALINE PHOSPHATASE 60 U/L (45-117); ALT/SGPT 14 U/L (12-78); ANION GAP 7 MEQ/L (8-16); AST/SGOT 13 U/L (7-37); BILIRUBIN,TOTAL 0.2 MG/DL (0.2-1.0); BLOOD UREA NITROGEN 22 MG/DL (7-18); CALCIUM LEVEL 9.1 MG/DL (8.8-10.2); CARBON DIOXIDE LEVEL 28 MEQ/L (21-32); CHLORIDE LEVEL 103 MEQ/L (98-107); GLOMERULAR FILTRATION RATE 57.8 (>42); GLUCOSE, FASTING 123 MG/DL (70-100); POTASSIUM SERUM 4.2 MEQ/L (3.5-5.1); SODIUM LEVEL 138 MEQ/L (136-145); TOTAL PROTEIN 6.9 GM/DL (6.4-8.2)
[2018-05-05] MEDS: MAGNESIUM OXIDE 400 MG TAB (MAG-OX) PO (08:46)
[2018-05-05] MEDS: APIXABAN 5 MG TAB (ELIQUIS) PO (08:47)
[2018-05-05] MEDS: PANTOPRAZOLE 40MG TAB (PROTONIX) PO (08:47)
[2018-05-05] MEDS: ATORVASTATIN 20 MG TAB PO (08:47)
[2018-05-05] MEDS: FLUCONAZOLE 100 MG TAB PO (08:47)
[2018-05-05] MEDS: GABAPENTIN 300 MG CAP PO (08:49)
[2018-05-05] MEDS: LEVEMIR (INSULIN DETEMIR) 1 UNITS/0.01ML SC (08:49)
[2018-05-05] MEDS: CARVedilol 3.125 MG TAB PO (08:49)
[2018-05-05 11:38] LABS: BEDSIDE GLUCOSE 202 MG/DL (83-110)
== END 2018-05-05 14:18 | disposition home or self-care (01) | DRG 684 ==
LOC: M MS5PR 05-03 00:36 → M ED 18:11 → M ED INP 22:39
PROVIDERS: Hospitalist
DX: N17.9 Acute kidney failure, unspecified (principal); I12.9 Hypertensive chronic kidney disease with stage 1 through stage 4 chronic kidney disease, or unspecified chronic kidney disease; E87.5 Hyperkalemia; E11.22 Type 2 diabetes mellitus with diabetic chronic kidney disease; I48.2 Chronic atrial fibrillation; I50.9 Heart failure, unspecified; K59.00 Constipation, unspecified; N40.1 Benign prostatic hyperplasia with lower urinary tract symptoms; G43.909 Migraine, unspecified, not intractable, without status migrainosus; E78.5 Hyperlipidemia, unspecified; E55.9 Vitamin D deficiency, unspecified; N18.9 Chronic kidney disease, unspecified; E29.1 Testicular hypofunction; G47.33 Obstructive sleep apnea (adult) (pediatric); D50.9 Iron deficiency anemia, unspecified; R33.9 Retention of urine, unspecified; N52.9 Male erectile dysfunction, unspecified; Z90.49 Acquired absence of other specified parts of digestive tract; Z96.641 Presence of right artificial hip joint; Z96.651 Presence of right artificial knee joint; Z79.01 Long term (current) use of anticoagulants; Z79.4 Long term (current) use of insulin; Z79.899 Other long term (current) drug therapy; Z91.040 Latex allergy status; Z88.5 Allergy status to narcotic agent; Z88.2 Allergy status to sulfonamides; Z88.8 Allergy status to other drugs, medicaments and biological substances; Z91.048 Other nonmedicinal substance allergy status

== ENCOUNTER → 2018-05-19 | Outpatient (REF) | payer MEDICARE, MEDICAID ==
[2018-05-19 10:33] LABS: ANION GAP 7 MEQ/L (8-16); BLOOD UREA NITROGEN 16 MG/DL (7-18); CALCIUM LEVEL 9.5 MG/DL (8.8-10.2); CARBON DIOXIDE LEVEL 28 MEQ/L (21-32); CHLORIDE LEVEL 96 MEQ/L (98-107); CREATININE FOR GFR 1.29 MG/DL (0.70-1.30); GLOMERULAR FILTRATION RATE 58.3 (>42); GLUCOSE, FASTING 136 MG/DL (70-100); POTASSIUM SERUM 4.3 MEQ/L (3.5-5.1); SODIUM LEVEL 131 MEQ/L (136-145)
== END ==
LOC: SKLABADC 09:19
DX: R60.9 Edema, unspecified (principal)
CPT/HCPCS: 80048

== ENCOUNTER → 2018-06-07 | Outpatient (REF) | payer MEDICARE, MEDICAID ==
[2018-06-07 09:52] LABS: HEMATOCRIT 36.2 % (42.0-52.0); HEMOGLOBIN 11.9 g/dl (13.5-17.5); MEAN CORPUSCULAR HEMOGLOBIN 27.9 pg (27.0-33.0); MEAN CORPUSCULAR HGB CONC 32.9 g/dl (32.0-36.5); MEAN CORPUSCULAR VOLUME 84.8 fl (80.0-96.0); PLATELET COUNT, AUTOMATED 273 10^3/uL (150-450); RED BLOOD COUNT 4.27 10^6/uL (4.30-6.10); RED CELL DISTRIBUTION WIDTH 14.2 % (11.5-14.5); WHITE BLOOD COUNT 8.6 10^3/uL (4.0-10.0)
[2018-06-07 10:09] LABS: ESTIMATED AVERAGE GLUCOSE 160 MG/DL (60-110); HEMOGLOBIN A1c 7.2 %
[2018-06-07 10:21] LABS: ALBUMIN 3.3 GM/DL (3.2-5.2); ALBUMIN/GLOBULIN RATIO 0.89 (1.00-1.93); ALKALINE PHOSPHATASE 86 U/L (45-117); ALT/SGPT 27 U/L (12-78); ANION GAP 6 MEQ/L (8-16); AST/SGOT 27 U/L (7-37); BILIRUBIN,TOTAL 0.4 MG/DL (0.2-1.0); BLOOD UREA NITROGEN 17 MG/DL (7-18); CALCIUM LEVEL 9.2 MG/DL (8.8-10.2); CARBON DIOXIDE LEVEL 31 MEQ/L (21-32); CHLORIDE LEVEL 95 MEQ/L (98-107); CREATININE FOR GFR 1.28 MG/DL (0.70-1.30); GLOMERULAR FILTRATION RATE 58.8 (>42); GLUCOSE, FASTING 149 MG/DL (70-100); POTASSIUM SERUM 4.5 MEQ/L (3.5-5.1); SODIUM LEVEL 132 MEQ/L (136-145)
== END ==
LOC: SKLABADC 08:30
DX: E11.65 Type 2 diabetes mellitus with hyperglycemia (principal); D64.9 Anemia, unspecified
CPT/HCPCS: 80053

== ENCOUNTER → 2018-08-10 | Outpatient (REF) | payer MEDICARE, MEDICAID ==
[2018-08-10 18:56] LABS: ANION GAP 5 MEQ/L (8-16); BLOOD UREA NITROGEN 26 MG/DL (7-18); CALCIUM LEVEL 9.5 MG/DL (8.8-10.2); CARBON DIOXIDE LEVEL 33 MEQ/L (21-32); CHLORIDE LEVEL 97 MEQ/L (98-107); CREATININE FOR GFR 1.44 MG/DL (0.70-1.30); GLOMERULAR FILTRATION RATE 51.3 (>42); GLUCOSE, FASTING 79 MG/DL (70-100); POTASSIUM SERUM 4.5 MEQ/L (3.5-5.1); SODIUM LEVEL 135 MEQ/L (136-145)
== END ==
LOC: M SFHCADAM 14:31
DX: I50.32 Chronic diastolic (congestive) heart failure (principal)
CPT/HCPCS: 80048

== ENCOUNTER → 2018-08-22 | Outpatient (REF) | payer MEDICARE, MEDICAID ==
[~2018-08-22] MED LIST changes: -ACET1TAB17 PO; +ACET1TAB55 PO; +ATOR40TA75 PO; +BACITAB PO; +BISA10SU PR; +BISA10SU5 PR; +CEFD1CAP8 PO; +CEPH500C PO; +CORE3.12 PO; -DRIS50002 PO; +DRIS50003 PO; -FENO145T PO; +FENO145T13 PO; +FIRS50SO PO; +GAS-80CH PO; +INSUDET SC; +LANTINJ4 SC; -LEVA1TAB PO; +LEVA250T13 PO; +LORA-243 PO; -LORA10TA2 PO; +LORA10TA3 PO; +MILK12002 PO; -MILKSUS PO; +NITR100C2 PO; +PANT40TA3 PO; +SILV50CR EXT; +SIME80TA PO; +SPIR-10 PO; -SPIR25TA2 PO; +SULF1TAB93; -ZOFR20TA PO; +ZOFR4TAB16 PO; -ZOFR8TAB IV; +ZOFR8TAB24 IV
== END ==
LOC: M LAB REF 10:38
PROVIDERS: ATTEND Podiatrist
DX: L03.031 Cellulitis of right toe (principal)

== ENCOUNTER → 2018-08-23 | Outpatient (REF) | payer MEDICARE, MEDICAID ==
[2018-08-23 11:58] LABS: APPEARANCE, URINE HAZY (CLEAR); BACTERIA, URINE AUTO 2+ (NEGATIVE); BILIRUBIN, URINE AUTO NEGATIVE (NEGATIVE); BLOOD, URINE BLOOD 3+ (NEGATIVE); COLOR, URINE YELLOW (YELLOW); GLUCOSE, URINE (UA) AUTO 1+ mg/dL (NEGATIVE); KETONE, URINE AUTO NEGATIVE (NEGATIVE); LEUKOCYTE ESTERASE, URINE AUTO 2+ (NEGATIVE); NITRITE, URINE AUTO NEGATIVE (NEGATIVE); PROTEIN, URINE AUTO 1+ mg/dL (NEGATIVE); RBC, URINE AUTO TNTC /HPF (0-3); SPECIFIC GRAVITY URINE AUTO 1.005 (1.002-1.035); SQUAMOUS EPITHELIAL CELL UR AU 0 /HPF (0-6); UROBILINOGEN, URINE AUTO 0.2 mg/dL (0.0-2.0); WBC, URINE AUTO 51 /HPF (0-3)
== END ==
LOC: M SMT 11:39
PROVIDERS: ATTEND Nurse Practitioner Family
DX: R31.9 Hematuria, unspecified (principal)

== ENCOUNTER → 2018-09-18 | Outpatient (REF) | payer MEDICARE, MEDICAID ==
[~2018-09-18] MED LIST changes: -GABA600T PO; +GABA600T4 PO; +MILK120011 PO; -MILK12002 PO; -NASA0.053; +NASA0.054
[2018-09-18 14:33] LABS: CREATININE FOR GFR 1.65 MG/DL (0.70-1.30); GLOMERULAR FILTRATION RATE 43.9 (>42)
== END ==
LOC: SKLABADC 12:27
PROVIDERS: ATTEND Orthopaedic Surgery
DX: Z01.812 Encounter for preprocedural laboratory examination (principal)

== ENCOUNTER → 2018-10-04 | Outpatient (REF) | payer MEDICARE, MEDICAID ==
[2018-10-04 10:22] LABS: HEMATOCRIT 36.8 % (42.0-52.0); HEMOGLOBIN 11.9 g/dl (13.5-17.5); MEAN CORPUSCULAR HEMOGLOBIN 28.5 pg (27.0-33.0); MEAN CORPUSCULAR HGB CONC 32.3 g/dl (32.0-36.5); PLATELET COUNT, AUTOMATED 306 10^3/uL (150-450); RED BLOOD COUNT 4.18 10^6/uL (4.30-6.10); WHITE BLOOD COUNT 8.1 10^3/uL (4.0-10.0)
[2018-10-04 10:40] LABS: ALBUMIN 3.5 GM/DL (3.2-5.2); BILIRUBIN,TOTAL 0.4 MG/DL (0.2-1.0); CALCIUM LEVEL 10.1 MG/DL (8.8-10.2); CHOLESTEROL RISK RATIO 2.193 (<5); CREATININE FOR GFR 1.32 MG/DL (0.70-1.30); GLOMERULAR FILTRATION RATE 56.8 (>42); MAGNESIUM LEVEL 1.7 MG/DL (1.8-2.4); POTASSIUM SERUM 4.9 MEQ/L (3.5-5.1); TOTAL PROTEIN 7.6 GM/DL (6.4-8.2)
[2018-10-04 11:18] LABS: HEMOGLOBIN A1c 6.6 %
== END ==
LOC: SKLABADC 08:57
PROVIDERS: ATTEND Family Medicine
DX: E13.29 Other specified diabetes mellitus with other diabetic kidney complication (principal); I50.32 Chronic diastolic (congestive) heart failure; E78.5 Hyperlipidemia, unspecified; E83.49 Other disorders of magnesium metabolism; N18.3 Chronic kidney disease, stage 3 (moderate)

== ENCOUNTER → 2018-10-26 | Outpatient (REF) | payer MEDICARE, MEDICAID ==
[2018-10-27 14:04] LABS: APPEARANCE, URINE MANUAL CLEAR (CLEAR); BILIRUBIN, URINE MANUAL NEGATIVE (NEGATIVE); BLOOD URINE MANUAL TRACE (NEGATIVE); COLOR, URINE MANUAL LT YELLOW (YELLOW); GLUCOSE, URINE (UA) MANUAL NEGATIVE (NEGATIVE); KETONE, URINE MANUAL NEGATIVE (NEGATIVE); LEUKOCYTE ESTERASE, URINE MAN POSITIVE (NEGATIVE); NITRITE, URINE MANUAL NEGATIVE (NEGATIVE); PROTEIN, URINE MANUAL NEGATIVE (NEGATIVE); SPECIFIC GRAVITY,URINE MANUAL 1.005 (1.002-1.035); UROBILINOGEN, URINE MANUAL NORMAL (NORMAL)
[2018-10-27 14:20] LABS: RBC, URINE 0-1 /hpf (0-3); WBC, URINE 0-1 /hpf (0-3)
[2018-10-27 14:21] LABS: BACTERIA, URINE SMALL AMOUNT; HYALINE CAST, URINE NONE SEEN /lpf (0-1); SQUAMOUS EPITHELIAL CELL URINE NONE SEEN /hpf (SMALL AMT)
== END ==
LOC: M SFHCPLAZ 12:19
PROVIDERS: ATTEND Physician Assistant
DX: R10.32 Left lower quadrant pain (principal)

== ENCOUNTER → 2018-10-26 | Outpatient (CLI) | payer MEDICARE, MEDICAID ==
[~2018-10-26] MED LIST changes: -/FENO14TA PO; -/FENO48TA OR; -/GLIM4TA OR; -/NITR4TASL SL; +AMAR1TAB6 OR; +CLOT1CRE2 TOP; -CLOT1CRE6 TOP; -DOCU10ELUD PO; +DOCU5LIQ PO; +HYDR-3715 PO; -NORCOTAB PO; +SIME180C PO; +TRIC145T19 PO; +TRIC1TAB OR
--- NOTE | 2018-10-26 18:20 | REP ---
Supine abdomen single AP view: Comparison of the abdomen pelvis CT dated 02/17/2018 and the supine plain film of the abdomen dated 02/17/2018. The bowel gas pattern is nonspecific. There are multiple loops of moderately dilated small bowel. The absence of upright film air-fluid levels cannot be determined. CT might be considered. The colon is mildly dilated. I suspect there is a large volume of fecal residue throughout the colon. There are multiple surgical clips in the abdomen on the left. There is a [place] filter in the vena vena cava. There is a cardiac pacemaker lead. 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 Impression: Nonspecific bowel gas pattern as described. Depending on symptomatology consider CT follow-up. Half Electronically Signed by John Lin MD 10/26/2018 06:11 P
[2018-10-26 18:38] LABS: BASO % 0.3 % (0.0-1.0); EOS # 0.1 10^3/uL (0.0-0.50); EOS % 1.4 % (0.0-3.0); HEMATOCRIT 36.4 % (42.0-52.0); HEMOGLOBIN 11.7 g/dl (13.5-17.5); LYMPH # 2.4 10^3/uL (1.5-4.5); LYMPH % 26.5 % (24.0-44.0); MEAN CORPUSCULAR HEMOGLOBIN 27.9 pg (27.0-33.0); MEAN CORPUSCULAR HGB CONC 32.1 g/dl (32.0-36.5); MEAN CORPUSCULAR VOLUME 86.7 fl (80.0-96.0); MONO # 0.6 10^3/uL (0.0-0.8); MONO % 6.4 % (0.0-5.0); NEUTROPHILS # 5.9 10^3/uL (1.8-7.7); NEUTROPHILS % 65.2 % (36.0-66.0); PLATELET COUNT, AUTOMATED 257 10^3/uL (150-450)
[2018-10-26 18:56] LABS: ALBUMIN 3.4 GM/DL (3.2-5.2); BILIRUBIN,TOTAL 0.5 MG/DL (0.2-1.0); CALCIUM LEVEL 9.4 MG/DL (8.8-10.2); CREATININE FOR GFR 1.38 MG/DL (0.70-1.30); GLOMERULAR FILTRATION RATE 53.9 (>42); POTASSIUM SERUM 4.5 MEQ/L (3.5-5.1); TOTAL PROTEIN 7.4 GM/DL (6.4-8.2)
== END ==
LOC: M LAB 17:25
PROVIDERS: ATTEND Physician Assistant
DX: R10.32 Left lower quadrant pain (principal)
CPT/HCPCS: 36415; 74018; 80053; 81000; 85025; 87086; G0463

== ENCOUNTER 2018-10-27 13:11 | Emergency (ER) | payer MEDICARE, MEDICAID ==
[~2018-10-27] VITALS: Ht 167.6 cm; Wt 93.6 kg
[~2018-10-27 13:11] MED LIST changes: +/FENO14TA PO; +/FENO48TA OR; +/GLIM4TA OR; +/NITR4TASL SL; -AMAR1TAB6 OR; -CLOT1CRE2 TOP; +CLOT1CRE6 TOP; +DOCU10ELUD PO; -DOCU5LIQ PO; -HYDR-3715 PO; +NORCOTAB PO; -SIME180C PO; -TRIC145T19 PO; -TRIC1TAB OR
[2018-10-27] MEDS ORDERED: ONDANSETRON 4 MG ORAL DISINTEGRATING TAB (Q0162 PER 1MG) PO ONE (14:45)
[2018-10-27] MEDS: GASTROGRAFIN SOLUTION 30ML PO SCH ×2 (15:20→15:50)
[2018-10-27] MEDS ORDERED: ISOVUE-370 76% 100ML VIAL (Q9967) As Ordered ONE (16:34)
[2018-10-27 17:14] VITALS: BP 137/63
--- NOTE | 2018-10-27 17:52 | REP ---
The CT of the abdomen and pelvis with IV and oral contrast: Comparison is 02/17/2018. The visualized lung borrego are unremarkable. The hepatic parenchyma, gallbladder, pancreas and spleen are unremarkable except for pancreatic calcifications, similar to the prior study, likely sequela of prior pancreatitis. The adrenals and kidneys are unremarkable. The abdominal aorta is unremarkable. There is no small bowel distension or obstruction. There is a large volume of fecal residue throughout the colon. This is compatible with constipation. No colonic obstruction is identified. Pelvis: There is a right hip arthroplasty resulting in significant image degradation from beam hardening. No definite ascites is identified. There is a Nuñez catheter. There is anterior abdominal wall mesh. There is an ovoid fluid collection external to the mesh in the subcutaneous fat measuring 10.6 by 3.1 cm. This could represent abscess or seroma. There is left hip osteoarthritis. Impression: No evidence of small or large bowel obstruction. Large volume of fecal residue throughout the colon compatible with constipation. Anterior pelvic wall mesh. Focal fluid collection along the external margin of the mesh as described, likely seroma, hematoma or abscess. Pancreatic calcifications suggestive of pancreatitis sequela. Electronically Signed by John Lin MD 10/27/2018 05:42 P
[2018-10-27] MEDS ORDERED: MAGNESIUM CITRATE 300 ML BTL PO ONE (18:00)
--- NOTE | 2018-10-30 07:37 | ED PDOC ---
Post-Departure Follow-Up dr sibley faxed formal reportof ct abd/p for fu Corey Holbrook MD Oct 30, 2018 07:37
== END 2018-10-27 18:53 | disposition home or self-care (01) ==
LOC: M ED 13:11
DX: K59.00 Constipation, unspecified (principal); R11.0 Nausea; E10.9 Type 1 diabetes mellitus without complications; I51.9 Heart disease, unspecified; Z95.0 Presence of cardiac pacemaker; Z88.8 Allergy status to other drugs, medicaments and biological substances; Z88.5 Allergy status to narcotic agent; Z88.2 Allergy status to sulfonamides; Z91.048 Other nonmedicinal substance allergy status; Z79.899 Other long term (current) drug therapy; Z79.01 Long term (current) use of anticoagulants; Z79.4 Long term (current) use of insulin
CPT/HCPCS: 74177; 99283; Q0162; Q9963; Q9967

== ENCOUNTER 2018-12-28 07:32 | Day surgery (SDC) | payer MEDICARE, MEDICAID ==
[~2018-12-28] VITALS: Ht 165.1 cm; Wt 92.5 kg
[~2018-12-28 07:32] MED LIST changes: -/FENO14TA PO; -/FENO48TA OR; -/GLIM4TA OR; -/NITR4TASL SL; +AMAR1TAB6 OR; +CLOT1CRE2 TOP; -CLOT1CRE6 TOP; -DOCU10ELUD PO; +DOCU5LIQ PO; +HYDR-3715 PO; -NORCOTAB PO; +NS 1,000 ML IV ONE; +SIME180C PO; +TRIC145T19 PO; +TRIC1TAB OR
[2018-12-28] MEDS ORDERED: PROPOFOL 200 MG/20 ML VIAL As Ordered ONE (08:21)
[2018-12-28] MEDS ORDERED: DEXTROSE 50% 50 ML SYRINGE As Ordered ONE (08:26)
[2018-12-28] MEDS ORDERED: DEXTROSE 50% 50 ML SYRINGE IV ONE (08:45)
--- NOTE | 2018-12-28 09:13 | ROOR ---
Patient Name: Calos Camacho Procedure Date: 12/28/2018 8:38 AM Date of : 1945 Age: 73 Room: [facility] Gender: Male Note Status: Finalized Procedure: Colonoscopy Indications: Chronic diarrhea Providers: Mike Arechiga Jr, MD Referring MD: Leo Schreiber MD Requesting Provider: Medicines: Propofol per Anesthesia Complications: No immediate complications. Procedure: Pre-Anesthesia Assessment: - Prior to the procedure, a History and Physical was performed, and patient medications and allergies were reviewed. The patient is competent. The risks and benefits of the procedure and the sedation options and risks were discussed with the patient. All questions were answered and informed consent was obtained. Patient identification and proposed procedure were verified by the physician and the nurse in the pre-procedure area and in the procedure room. Mental Status Examination: alert and oriented. Airway Examination: normal oropharyngeal airway and neck mobility. Respiratory Examination: clear to auscultation. CV Examination: normal. ASA Grade Assessment: II - A patient with mild systemic disease. After reviewing the risks and benefits, the patient was deemed in satisfactory condition to undergo the procedure. The anesthesia plan was to use moderate sedation / analgesia (conscious sedation). Immediately prior to administration of medications, the patient was re-assessed for adequacy to receive sedatives. The heart rate, respiratory rate, oxygen saturations, blood pressure, adequacy of pulmonary ventilation, and response to care were monitored throughout the procedure. The physical status of the patient was re-assessed after the procedure. The Colonoscope was introduced through the anus and advanced to the cecum, identified by appendiceal orifice and ileocecal valve. The colonoscopy was performed without difficulty. The patient tolerated the procedure well. The quality of the bowel preparation was poor. Findings: The rectum, recto-sigmoid colon, sigmoid colon, descending colon, transverse colon, ascending colon, cecum, appendiceal orifice and ileocecal valve appeared normal. Impression: - Preparation of the colon was poor. - The rectum, recto-sigmoid colon, sigmoid colon, descending colon, transverse colon, ascending colon, cecum, appendiceal orifice and ileocecal valve are normal. - No specimens collected. Recommendation: - Discharge patient to home (ambulatory). - Repeat colonoscopy in 10 years for screening purposes. Mike Arechiga MD Mike Arechiga Jr, MD 12/28/2018 9:12:39 AM Electronically signed by Mike Arechiga Jr, MD Number of Addenda: 0 Note Initiated On: 12/28/2018 8:38 AM Estimated Blood Loss: Estimated blood loss: none.
[2018-12-28 10:05] VITALS: BP 123/63
== END 2018-12-28 10:15 | disposition home or self-care (01) ==
LOC: M OPP 07:32
PROVIDERS: ATTEND Surgery
DX: R19.7 Diarrhea, unspecified (principal)

== ENCOUNTER → 2019-01-02 | Outpatient (REF) | payer MEDICARE, MEDICAID ==
[~2019-01-02] MED LIST changes: -NS 1,000 ML IV ONE
[2019-01-02 15:54] LABS: ALBUMIN 2.9 GM/DL (3.2-5.2); CALCIUM LEVEL 8.8 MG/DL (8.8-10.2); CREATININE FOR GFR 1.57 MG/DL (0.70-1.30); GLOMERULAR FILTRATION RATE 46.3 (>42); PHOSPHORUS LEVEL 2.6 MG/DL (2.5-4.9); POTASSIUM SERUM 3.8 MEQ/L (3.5-5.1)
== END ==
LOC: M LAB REF 15:28
PROVIDERS: ATTEND Physician Assistant
DX: I11.0 Hypertensive heart disease with heart failure (principal)

== ENCOUNTER → 2019-01-05 | Outpatient (REF) | payer MEDICARE, MEDICAID ==
[2019-01-05 16:47] LABS: CLOSTRIDIUM DIFFICILE PCR POSITIVE (NEGATIVE)
== END ==
LOC: M SFHCADAM 15:20
PROVIDERS: ATTEND Family Medicine
DX: R19.7 Diarrhea, unspecified (principal)

== ENCOUNTER → 2019-01-12 | Outpatient (REF) | payer MEDICARE, MEDICAID ==
[2019-01-12 10:14] LABS: HEMOGLOBIN 10.8 g/dl (13.5-17.5); MEAN CORPUSCULAR HEMOGLOBIN 29.3 pg (27.0-33.0); MEAN CORPUSCULAR HGB CONC 32.7 g/dl (32.0-36.5); MEAN CORPUSCULAR VOLUME 89.4 fl (80.0-96.0); PLATELET COUNT, AUTOMATED 200 10^3/uL (150-450); RED BLOOD COUNT 3.69 10^6/uL (4.30-6.10); WHITE BLOOD COUNT 7.7 10^3/uL (4.0-10.0)
[2019-01-12 10:17] LABS: CREATININE FOR GFR 1.55 MG/DL (0.70-1.30); FREE T4 1.32 NG/DL (0.76-1.46)
[2019-01-12 10:48] LABS: HEMOGLOBIN A1c 6.2 %
[2019-01-12 12:41] LABS: ALBUMIN 2.8 GM/DL (3.2-5.2); BILIRUBIN,TOTAL 0.5 MG/DL (0.2-1.0); CALCIUM LEVEL 9.7 MG/DL (8.8-10.2); POTASSIUM SERUM 4.3 MEQ/L (3.5-5.1); TOTAL PROTEIN 6.6 GM/DL (6.4-8.2)
[2019-01-12 13:12] LABS: CHOLESTEROL RISK RATIO 1.866 (<5)
== END ==
LOC: M LAB REF 09:39
PROVIDERS: ATTEND Family Medicine
DX: E11.621 Type 2 diabetes mellitus with foot ulcer (principal); E78.5 Hyperlipidemia, unspecified; I48.2 Chronic atrial fibrillation; D64.9 Anemia, unspecified

== ENCOUNTER → 2019-02-06 | Outpatient (REF) | payer MEDICARE ==
[2019-02-07 13:39] LABS: CLOSTRIDIUM DIFFICILE PCR NEGATIVE (NEGATIVE)
== END ==
LOC: M SFHCADAM 12:06
PROVIDERS: ATTEND Physician Assistant Medical
DX: Z86.19 Personal history of other infectious and parasitic diseases (principal)

== ENCOUNTER 2019-03-12 16:59 | Emergency (ER) | payer MEDICARE, MEDICAID ==
[~2019-03-12] VITALS: Ht 167.6 cm; Wt 87.3 kg
[2019-03-12] MEDS ORDERED: SPIR-10 PO (17:20)
[2019-03-12] MEDS ORDERED: LEVO500T3 (17:20)
[2019-03-12 18:53] LABS: BASO % 0.4 % (0.0-1.0); EOS # 0.1 10^3/uL (0.0-0.50); EOS % 1.5 % (0.0-3.0); HEMATOCRIT 33.6 % (42.0-52.0); HEMOGLOBIN 11.2 g/dl (13.5-17.5); LYMPH # 1.9 10^3/uL (1.5-4.5); MEAN CORPUSCULAR HEMOGLOBIN 29.2 pg (27.0-33.0); MEAN CORPUSCULAR HGB CONC 33.3 g/dl (32.0-36.5); MEAN CORPUSCULAR VOLUME 87.7 fl (80.0-96.0); MONO # 0.5 10^3/uL (0.0-0.8); MONO % 6.1 % (0.0-5.0); NEUTROPHILS # 5.7 10^3/uL (1.8-7.7); NEUTROPHILS % 68.4 % (36.0-66.0); PLATELET COUNT, AUTOMATED 248 10^3/uL (150-450); RED BLOOD COUNT 3.83 10^6/uL (4.30-6.10); WHITE BLOOD COUNT 8.4 10^3/uL (4.0-10.0)
[2019-03-12 18:55] LABS: BILIRUBIN, URINE MANUAL NEGATIVE (NEGATIVE); GLUCOSE, URINE (UA) MANUAL NEGATIVE (NEGATIVE); KETONE, URINE MANUAL NEGATIVE (NEGATIVE); UROBILINOGEN, URINE MANUAL NORMAL (NORMAL)
[2019-03-12 19:02] LABS: BACTERIA, URINE LARGE AMOUNT; SQUAMOUS EPITHELIAL CELL URINE NONE SEEN /hpf (SMALL AMT)
[2019-03-12 19:03] LABS: HYALINE CAST, URINE NONE SEEN /lpf (0-1)
[2019-03-12] MEDS ORDERED: LevoFLOXacin IV 500 MG in APPROPRIATE DILUENT 1 EA IV ONE (19:15)
[2019-03-12 19:20] LABS: AMPHETAMINES LEVEL URINE NEGATIVE (NEGATIVE); BARBITURATES URINE NEGATIVE (NEGATIVE); BENZODIAZEPINES URINE NEGATIVE (NEGATIVE); CANNABINOIDS URINE NEGATIVE (NEGATIVE); COCAINE METABOLITE URINE NEGATIVE (NEGATIVE); METHADONE URINE NEGATIVE (NEGATIVE); OPIATES URINE NEGATIVE (NEGATIVE); PHENCYCLIDINE URINE NEGATIVE (NEGATIVE)
[2019-03-12 19:36] LABS: ALBUMIN 3.2 GM/DL (3.2-5.2); ALT/SGPT 21 U/L (12-78); BILIRUBIN,DIRECT 0.2 MG/DL (0.0-0.2); BILIRUBIN,TOTAL 0.2 MG/DL (0.2-1.0); BLOOD UREA NITROGEN 34 MG/DL (7-18); CALCIUM LEVEL 9.1 MG/DL (8.8-10.2); CARBON DIOXIDE LEVEL 32 MEQ/L (21-32); CHLORIDE LEVEL 98 MEQ/L (98-107); CK-MB VALUE MASS 2.4 NG/ML (<3.6); CPK CREATINE PHOSPHOKINASE 68 U/L (39-308); CREATININE FOR GFR 1.54 MG/DL (0.70-1.30); GLOMERULAR FILTRATION RATE 47.4 (>42); GLUCOSE, FASTING 147 MG/DL (70-100); MB/CK RELATIVE INDEX 3.53 (< OR =4); POTASSIUM SERUM 3.9 MEQ/L (3.5-5.1); SODIUM LEVEL 136 MEQ/L (136-145); TOTAL PROTEIN 7.5 GM/DL (6.4-8.2); TROPONIN I 0.06 NG/ML (< 0.10)
[2019-03-12 19:37] LABS: ETHYL ALCOHOL (ETHANOL) < 0.003 % (0.000-0.010)
--- NOTE | 2019-03-12 19:54 | REPVR ---
EXAM: CT Head Without Contrast EXAM DATE/TIME: 03/12/2019 5:39 PM CLINICAL HISTORY: 73 years old, male; Altered mental status/memory loss TECHNIQUE: Imaging protocol: Axial computed tomography images of the head without contrast. Radiation optimization: All CT scans at this facility use at least one of these dose optimization techniques: automated exposure control; mA and/or kV adjustment per patient size (includes targeted exams where dose is matched to clinical indication); or iterative reconstruction. COMPARISON: CT Head without contrast 04/16/2018 9:07 AM FINDINGS: Brain: Mild parenchymal volume loss. Mild age-related white matter disease. Ventricles: The degree of ventricular dilatation is normal for age. No pathologic enlargement demonstrated. Bones/joints: Unremarkable. No acute fracture. Sinuses: Visualized sinuses are unremarkable. No fluid levels. Mastoid air cells: Visualized mastoid air cells are well aerated. No mastoid effusion. Soft tissues: Unremarkable. IMPRESSION: No acute findings. Electronically signed by: Armaan Rosas On 03/12/2019 19:53:46 PM
[2019-03-12] MEDS ORDERED: LEVA1TAB2 PO (20:13)
[2019-03-12 21:00] VITALS: BP 129/62
--- NOTE | 2019-03-13 07:54 | REP ---
CHEST, TWO VIEWS: Two views of the chest are performed and compared with a prior study of 05/02/2018. There is no acute infiltrate or pulmonary edema. There is mild left ventricular prominence. The mediastinal silhouette is unremarkable and unchanged. Left single lead pacemaker is again noted. IMPRESSION: No acute pulmonary disease. Electronically Signed by John Santa MD 03/14/2019 09:46 A
[2019-03-13] MEDS ORDERED: FURO40TA2 PO (13:18)
[2019-03-13] MEDS ORDERED: BACL1TAB9 PO (13:18)
[2019-03-13] MEDS ORDERED: LEVO250T12 PO (13:21)
--- NOTE | 2019-03-14 03:30 | ECGEPIP ---
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
== END 2019-03-12 21:30 | disposition home or self-care (01) ==
LOC: M ED 16:59
DX: N39.0 Urinary tract infection, site not specified (principal); I48.91 Unspecified atrial fibrillation; Z95.0 Presence of cardiac pacemaker; I45.10 Unspecified right bundle-branch block; I51.9 Heart disease, unspecified; E11.9 Type 2 diabetes mellitus without complications; I10 Essential (primary) hypertension; Z82.49 Family history of ischemic heart disease and other diseases of the circulatory system

== ENCOUNTER 2019-03-13 09:57 | Inpatient (IN) | payer MEDICARE, MEDICAID ==
[~2019-03-13] VITALS: Ht 165.1 cm; Wt 87.3 kg
[~2019-03-13 09:57] MED LIST changes: +LEVO500T3
[2019-03-13 10:51] LABS: BASO % 0.3 % (0.0-1.0); EOS # 0.1 10^3/uL (0.0-0.50); EOS % 1.4 % (0.0-3.0); HEMATOCRIT 37.9 % (42.0-52.0); HEMOGLOBIN 12.4 g/dl (13.5-17.5); LYMPH # 1.5 10^3/uL (1.5-4.5); LYMPH % 16.2 % (24.0-44.0); MEAN CORPUSCULAR HEMOGLOBIN 28.6 pg (27.0-33.0); MEAN CORPUSCULAR HGB CONC 32.7 g/dl (32.0-36.5); MEAN CORPUSCULAR VOLUME 87.5 fl (80.0-96.0); MONO # 0.5 10^3/uL (0.0-0.8); MONO % 5.2 % (0.0-5.0); NEUTROPHILS % 76.4 % (36.0-66.0); PLATELET COUNT, AUTOMATED 244 10^3/uL (150-450); RED BLOOD COUNT 4.33 10^6/uL (4.30-6.10); WHITE BLOOD COUNT 9.2 10^3/uL (4.0-10.0)
[2019-03-13 11:34] LABS: ALBUMIN 3.2 GM/DL (3.2-5.2); BILIRUBIN,DIRECT 0.2 MG/DL (0.0-0.2); BILIRUBIN,TOTAL 0.4 MG/DL (0.2-1.0); CALCIUM LEVEL 10.2 MG/DL (8.8-10.2); CK-MB VALUE MASS 2.7 NG/ML (<3.6); CREATININE FOR GFR 1.35 MG/DL (0.70-1.30); GLOMERULAR FILTRATION RATE 55.2 (>42); MB/CK RELATIVE INDEX 3.91 (< OR =4); POTASSIUM SERUM 4.1 MEQ/L (3.5-5.1); THYROID STIMULATING HORMONE 1.62 uIU/ML (0.358-3.740); TOTAL PROTEIN 7.4 GM/DL (6.4-8.2); TROPONIN I 0.06 NG/ML (< 0.10)
--- NOTE | 2019-03-13 11:56 | REP ---
CHEST, TWO VIEWS: Two views of the chest are performed. COMPARISON: 03/12/2019 Once again, there is no acute infiltrate. Left ventricle is prominent. Mediastinal silhouette is unchanged. Single lead pacemaker is again noted. There are degenerative changes of the spine. IMPRESSION: No acute infiltrate. Electronically Signed by John Santa MD 03/14/2019 10:51 A
[2019-03-13] MEDS ORDERED: NS 1,000 ML IV SCH (12:57)
[2019-03-13 13:10] LABS: MAGNESIUM LEVEL 2.4 MG/DL (1.8-2.4)
[2019-03-13] MEDS ORDERED: BACL1TAB9 PO (13:18)
[2019-03-13] MEDS ORDERED: FURO40TA2 PO (13:18)
[2019-03-13] MEDS ORDERED: LEVO250T12 PO (13:21)
[2019-03-13] MEDS ORDERED: GLUCAGON FOR INJ 1 MG VIAL (J1610) SC PRN (14:00)
[2019-03-13] MEDS ORDERED: CLOTRIMAZOLE 1% TOPICAL CREAM 30GM TOP PRN (14:00)
[2019-03-13] MEDS ORDERED: NITROGLYCERIN 0.4 MG SUBL TABLET SL PRN (14:00)
[2019-03-13] MEDS ORDERED: NYSTATIN 100,000 UNITS/GM TOPICAL PWD 15 GM TOP PRN (14:00)
[2019-03-13] MEDS ORDERED: GLUCOSE 4 GM CHEW TABLET PO PRN (14:00)
[2019-03-13] MEDS ORDERED: DEXTROSE 50% 50 ML SYRINGE IV PRN (14:00)
--- NOTE | 2019-03-13 14:51 | HPEPDOC ---
General Date of Admission 03/13/2019 Date of Service: Mar 13, 2019 Chief Complaint The patient is a 73-year-old male admitted with a reason for visit of Semi Responsive. Source: Family, Old records Exam Limitations: Dementia Timing/Duration: Day(s) Severity: Moderate Associated Symptoms: Loss of appetite History of Present Illness This is a 73-year-old male who is cared for at home by family. He has a suprapubic catheter due to neurogenic bladder with known history of recurrent urinary tract infections. With his urinary tract infections he tends to develop lethargy and confusion. He developed this on Tuesday prior to this admission. The patient has not improved with receiving outpatient Levaquin. The patient is admitted with outpatient treatment failure for urinary tract infection and resultant metabolic encephalopathy. Family notes additional contributory factors. Apparently, the patient usually receives a dose of antibiotics associated with catheter change; he did not rece anamaria antibiotics with his last one. Also, there has been intermittent leaking from the suprapubic site and there is concern for adjacent tunneling or fistula. He has not otherwise had fever, chills, nausea or vomiting. He does have occasional discomfort from bladder spasm. Home Medications Scheduled Apixaban (Eliquis) 5 Mg Tab, 5 MG PO BID, (Reported) Atorvastatin Calcium (Atorvastatin Calcium) 40 Mg Tab, 40 MG PO DAILY, (Reported) Baclofen (Baclofen) 20 Mg Tablet, 20 MG PO TID, (Reported) Ergocalciferol (Vitamin D2) (Drisdol) 50,000 Unit Capsule, 50,000 UNIT PO QWEEK, (Reported) SUNDAYS Fenofibrate Nanocrystallized (Fenofibrate) 145 Mg Tab, 145 MG PO DAILY, (Reported) Furosemide (Furosemide) 40 Mg Tablet, 40 MG PO DAILY, (Reported) Gabapentin (Gabapentin) 600 Mg Tab, 600 MG PO TID, (Reported) Insulin Glargine,Hum.rec.anlog (Lantus Solostar) 100 Unit/Ml Inj, 10 UNITS SC BID, (Reported) 20 in am 10 at night Insulin Human Lispro (Humalog) 1 Units/0.01 Ml Inj, 1 DOSE SC AC, (Reported) PER SLIDING SCALE L.acidoph/L.bulg/B.bif/S.therm (Bacid Caplet) 1 Tab Tab, 1 TAB PO BID, (Reported) Levofloxacin (Levofloxacin) 250 Mg Tablet, 250 MG PO DAILY, (Reported) FILLED 03/12 FOR 7 DAYS Loratadine (Loratadine) 10 Mg Tab, 10 MG PO QHS, (Reported) Magnesium Oxide (Magnesium Oxide) 400 Mg Tab, 800 MG PO BID, (Reported) Pantoprazole Sodium (Pantoprazole Sodium) 40 Mg Tab, 40 MG PO DAILY, (Reported) Solifenacin Succinate (Vesicare) 10 Mg Tab, 10 MG PO QHS, (Reported) Spironolactone (Spironolactone) 25 Mg Tablet, 12.5 MG PO DAILY, (Reported) Scheduled PRN Bisacodyl (Bisacodyl) 10 Mg Sup, [address] DAILY PRN for CONSTIPATION, (Reported) Clotrimazole (Clotrimazole) 1 % Cre, 1 DOSE TOP BID PRN for RASH/ITCHING, (Reported) APPLY TO GROIN AREA Nitroglycerin (Nitrostat) 0.4 Mg Subl, 0.4 MG SL NITRO PRN for CHEST PAIN, (Reported) Nystatin (Nystatin Powder) 100,000 Unit/Gm Pow, 1 DOSE TOP BID PRN for RASH/ITCHING, (Reported) APPLY TO GROIN AREA Simethicone (Simethicone) 180 Mg Capsule, 180 MG PO QIDP PRN for GAS PAIN, (Reported) Allergies Coded Allergies: Sulfa (Sulfonamide Antibiotics) (Verified Allergy, Intermediate, hives, 12/20/18) alcohol (Verified Allergy, Intermediate, soap rash, 12/20/18) carisoprodol (Verified Allergy, Intermediate, hives, 12/20/18) gum mastic (Verified Allergy, Intermediate, soap rash, 12/20/18) purell mosture therapy latex (Verified Allergy, Intermediate, rash, 12/20/18) methyl salicylate (Verified Allergy, Intermediate, soap rash, 12/20/18) methylparaben (Verified Allergy, Intermediate, hives, 12/20/18) morphine (Verified Allergy, Intermediate, HIVES RASH AT SITE LIKELY HISTAMINE RELEASE, 12/20/18) storax (Verified Allergy, Intermediate, soap rash, 12/20/18) SOO Inhibitors (Verified Allergy, Unknown, 12/20/18) TAPE (Verified Allergy, Unknown, STERISTRIPS, 02/10/18) hydrochlorothiazide (Verified Allergy, Unknown, unsure of reaction, 12/20/18) nitrofurantoin (Verified Adverse Reaction, Mild, diarrhea, 12/20/18) Past Medical History Medical History Past medical history includes: 1. Essential Hypertension 2. Qzl-ixzhvyp-ozzywqtqq diabetes mellitus 3. Ankylosing spondylitis 4. BPH 5. Migraines 6. Reported congestive heart failure 7. Hyperlipidemia 8. Chronic atrial fibrillation for which he is on chronic anticoagulation with Eliquis, and has undergone ablation with pacemaker placement 9. Multiple prior urinary tract infection 10. History of multilevel disc disease for which he has undergone decompressive laminectomy 11. History of C. difficile colitis due to antibiotic therapy 12. LEEANN, does not use CPAP 13. 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 Neurogenic bladder 16.Postoperative spinal infection Surgical History Surgical history includes: 1. Left hemicolectomy 2. Right knee replacement 3. Right total hip replacement 5. Multiple hernia repair 6. Bladder biopsy in 2013 7. Supra pubic catheter placement 2013. 8. Thoracic decompressive laminectomy 9. 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 Again, he lives with family members who a re his caretakers. They are extremely knowledgeable. A-FIB/CHADSVASC A-FIB History Current/History of A-Fib/PAF?: Yes Current PO Anticoag Therapy: Yes Review of Systems Constitutional: Reports: Weakness, Fatigue, Lethargy Eyes: Reports: Pain, Vision change ENT: Denies: Head Aches, Ear Pain, Dysphagia Skin: Denies: Rash, Lesions, Breakdown Pulmonary: Denies: Dyspnea, Cough Cardiovascular: Denies: Chest Pain, Palpitations, Orthopnea, Paroxysmal Noc. Dyspnea, Lt Headedness Gastrointestinal: Denies: Nausea, Vomiting, Abdominal Pain, Diarrhea Genitourinary: Denies: Dysuria, Frequency, Incontinence, Retention Hematologic: Denies: Bruising, Bleeding Excessively Musculoskeletal: Denies: Neck Pain, Back Pain, Joint Pain, Muscle Pain, Spasms Neurological: Denies: Weakness, Numbness, Change in speech, Confusion Psych: Reports: Mood Normal; Denies: Depression, Memory Issues Other systems The patient has chronic pain to his right foot due to Charcot deformity. Otherwise, review of 10 systems is negative except as stated in the brief presentation. Physical Examination General Exam: Positive: Mild Distress Eye Exam: Positive: PERRLA, Conjunctiva & lids normal, EOMI ENT Exam: Positive: Atraumatic, Pharynx Normal, Nares Patent, Other ENT (oral mucosa is dry from mouth breathing and poor intake) Neck Exam: Positive: Supple; Negative: JVD, thyromegaly, +2 carotid pulse wo bruit, Lymphadenopathy, Other Chest Exam: Positive: Clear to auscultation, Normal air movement Heart Exam: Positive: Rate Normal, Regular Rhythm Abdomen Exam: Positive: Normal bowel sounds, Soft, Tenderness, Other (suprapubic catheter site is intact with yellow urine and no leakage currently) Extremity Exam: Positive: Other (patient does have notable joint deformity, especially to his feet consistent with Charcot. There is also an element of arthritis. 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 He is not currently fully oriented.) Vital Signs Vital Signs Date Time Temp Pulse Resp B/P (MAP) Pulse Ox O2 Delivery O2 Flow Rate FiO2 03/13/19 13:30 101 142/76 (98) 95 03/13/19 10:14 97.8 16 Room Air Laboratory Data Labs 24H Laboratory Tests 2 03/13/19 10:40: Immature Granulocyte % (Auto) 0.5, White Blood Count 9.2, Red Blood Count 4.33, Hemoglobin 12.4L, Hematocrit 37.9L, Mean Corpuscular Volume 87.5, Mean Corpuscular Hemoglobin 28.6, Mean Corpuscular Hemoglobin Concent 32.7, Red Cell Distribution Width 13.5, Platelet Count 244, Neutrophils (%) (Auto) 76.4H, Lymphocytes (%) (Auto) 16.2L, Monocytes (%) (Auto) 5.2H, Eosinophils (%) (Auto) 1.4, Basophils (%) (Auto) 0.3, Neutrophils # (Auto) 7.0, Lymphocytes # (Auto) 1.5, Monocytes # (Auto) 0.5, Eosinophils # (Auto) 0.1, Basophils # (Auto) 0.0, Nucleated Red Blood Cells % (auto) 0.0, Anion Gap -5L, Glomerular Filtration Rate 55.2, Calcium Level 10.2, Magnesium Level 2.4, Aspartate Amino Transf (AST/SGOT) 24, Alanine Aminotransferase (ALT/SGPT) 17, Alkaline Phosphatase 72, Total Bilirubin 0.4#, Direct Bilirubin 0.2, Ammonia 21, Total Creatine Kinase 69, Creatine Kinase MB 2.7, Creatine Kinase MB Relative Index 3.91, Troponin I 0.06, Total Protein 7.4, Albumin 3.2, Albumin/Globulin Ratio 0.76L, Thyroid Stimulating Hormone (TSH) 1.620 CBC/BMP Laboratory Tests 03/13/19 10:40 Red Blood Count 4.33, Mean Corpuscular Volume 87.5, Mean Corpuscular Hemoglobin 28.6, Mean Corpuscular Hemoglobin Concent 32.7, Red Cell Distribution Width 13.5, Neutrophils (%) (Auto) 76.4 H, Lymphocytes (%) (Auto) 16.2 L, Monocytes (%) (Auto) 5.2 H, Eosinophils (%) (Auto) 1.4, Basophils (%) (Auto) 0.3, Neutrophils # (Auto) 7.0, Lymphocytes # (Auto) 1.5, Monocytes # (Auto) 0.5, Eosinophils # (Auto) 0.1, Basophils # (Auto) 0.0 Assessment/Plan 1. Metabolic encephalopathy--this is likely due to recurrent urinary tract infection. We are hopeful of response to treating the infection and some hydration. 2. Recurrent urinary tract infection--the patient does have a chronic suprapubic catheter. It is changed out regularly. Patient has a history of recurrent infections. Prior organisms have included Escherichia coli, yeast and Pseudomonas. Prior Escherichia coli has been resistant to Levaquin. We will start treatment with ceftriaxone and then adjust per sensitivities from culture results. Again, the patient does not have a leukocytosis, fever or chills. There is concern for leakage and possible adjacent fistula at his suprapubic catheter site, but this is not currently evident on exam. We will continue to monitor. 3. Acute kidney injury/dehydration--renal function has improved with creatinine dropping from 1.54-1.35. We will continue with gentle IV hydration. Per family the patient's intake has been very poor for quite some time. 4. Imq-rjliqfg-dtjqmvlyi diabetes mellitus--the patient's oral intake has been poor. We will continue his current insulin but liberalize his diet so that he will try to eat and drink things that he likes. 5. Chronic atrial fibrillation--patient remains rate controlled; he is status post pacemaker. He remains on anticoagulation Eliquis. We will continue the patient's other medications to manage his underlying conditions of essential hypertension and dyslipidemia. His pain is usually managed well with ibuprofen. Patient has been treated for his urinary tract infections with Levaquin in the past and it has been used for prophylaxis. However, most recent Escherichia coli. Cultures have been resistant to Levaquin. Additionally, patient has had behavioral changes while on Levaquin. The patient is an outpatient treatment failure. He is placed inpatient status. We do anticipate his length of stay to be greater than 2 midnights. Plan / VTE VTE Prophylaxis Ordered?: Yes Plan / Urinary Catheter Urinary Catheter: Other Catheter: (patient has chronic suprapubic catheter) Reason for insertion/continuin: Other-document below (patient has neurogenic bladder) Plan IVF: Initiate Diet: Continue Current Activity: Encourage Ambulation Therapy: PT, OT Medications: Start Antibiotics Diagnostics: Repeat Labs in AM Advanced Directives: MOLST Form is available, Do Not Resuscitate (DNR), Trial form of Intubation EFREM KYLE MD Mar 13, 2019 14:51
[2019-03-13] MEDS: NS 1,000 ML IV SCH (15:26)
[2019-03-13] MEDS: cefTRIAXone SOD 1 GM in D5W MINI-BAG PLUS 50 ML IV SCH (16:41)
[2019-03-13] MEDS: BACLOFEN 10 MG TAB PO SCH ×2 (16:41→21:44)
[2019-03-13 17:07] VITALS: BP 117/52
[2019-03-13] MEDS: HumaLOG INSULIN (NovoLOG) PER UNIT SC SCH ×2 (17:30→21:00)
[2019-03-13] MEDS: GABAPENTIN 300 MG CAP PO SCH (21:43)
[2019-03-13] MEDS: LEVEMIR (INSULIN DETEMIR) 1 UNITS/0.01ML SC SCH (21:43)
[2019-03-13] MEDS: APIXABAN 5 MG TAB (ELIQUIS) PO SCH (21:44)
[2019-03-13] MEDS: ACETAMINOPHEN TAB 650MG DOSE (2X325MG) PO PRN (21:44)
[2019-03-13] MEDS: MAGNESIUM OXIDE 400 MG TAB (MAG-OX) PO SCH (21:44)
[2019-03-13 22:00] VITALS: BP 120/54
[2019-03-13] MEDS: SOLIFENACIN 5 MG TAB PO SCH (22:53)
[2019-03-14 02:00] VITALS: BP 124/56
--- NOTE | 2019-03-14 03:33 | ECGEPIP ---
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
[2019-03-14] MEDS: NS 1,000 ML IV SCH (04:33)
[2019-03-14 06:00] VITALS: BP 123/61
[2019-03-14 06:43] LABS: HEMATOCRIT 31.7 % (42.0-52.0); HEMOGLOBIN 10.5 g/dl (13.5-17.5); MEAN CORPUSCULAR HGB CONC 33.1 g/dl (32.0-36.5); MEAN CORPUSCULAR VOLUME 87.6 fl (80.0-96.0); PLATELET COUNT, AUTOMATED 226 10^3/uL (150-450); RED BLOOD COUNT 3.62 10^6/uL (4.30-6.10); WHITE BLOOD COUNT 8.4 10^3/uL (4.0-10.0)
[2019-03-14 07:10] LABS: BLOOD UREA NITROGEN 25 MG/DL (7-18); CALCIUM LEVEL 8.8 MG/DL (8.8-10.2); CARBON DIOXIDE LEVEL 30 MEQ/L (21-32); CHLORIDE LEVEL 106 MEQ/L (98-107); CREATININE FOR GFR 1.04 MG/DL (0.70-1.30); GLOMERULAR FILTRATION RATE > 60.0 (>42); GLUCOSE, FASTING 114 MG/DL (70-100); SODIUM LEVEL 140 MEQ/L (136-145)
[2019-03-14] MEDS: BACLOFEN 10 MG TAB PO SCH ×3 (08:50→21:33)
[2019-03-14] MEDS: FENOFIBRATE 145 MG TAB (TRICOR) PO SCH (08:51)
[2019-03-14] MEDS: HumaLOG INSULIN (NovoLOG) PER UNIT SC SCH ×5 (08:51→21:00)
[2019-03-14] MEDS: GABAPENTIN 300 MG CAP PO SCH ×3 (08:51→21:32)
[2019-03-14] MEDS: ATORVASTATIN 20 MG TAB PO SCH (08:51)
[2019-03-14] MEDS: MAGNESIUM OXIDE 400 MG TAB (MAG-OX) PO SCH ×2 (08:51→21:33)
[2019-03-14] MEDS: APIXABAN 5 MG TAB (ELIQUIS) PO SCH ×2 (08:51→21:33)
[2019-03-14] MEDS: LEVEMIR (INSULIN DETEMIR) 1 UNITS/0.01ML SC SCH ×2 (08:52→21:33)
[2019-03-14] MEDS: PANTOPRAZOLE 40MG TAB (PROTONIX) PO SCH (08:52)
--- NOTE | 2019-03-14 10:38 | IPNPDOC ---
Subjective Date Seen The patient was seen on 03/14/19. Subjective Chief Complaint/HPI Less confused today Having loose stool. Constitutional: Denies: Chills, Fever Pulmonary: Denies: Dyspnea, Cough Cardiovascular: Denies: Chest Pain, Palpitations Gastrointestinal: Reports: Diarrhea; Denies: Nausea, Vomiting, Abdominal Pain, Constipation Objective Physical Examination General Exam: Positive: Alert Eye Exam: Positive: EOMI ENT Exam: Positive: Mucous membr. moist/pink Neck Exam: Positive: Supple; Negative: JVD, thyromegaly, +2 carotid pulse wo bruit, Lymphadenopathy, Other Chest Exam: Positive: Clear to auscultation, Normal air movement; Negative: Rales, Rhonchi, Wheezing Heart Exam: Positive: Rate Normal, Regular Rhythm Abdomen Exam: Positive: Normal bowel sounds, Soft, Tenderness, Other (suprapubic catheter site is intact with yellow urine and no leakage currently) Extremity Exam: Positive: Other (patient does have notable joint deformity, especially to his feet consistent with Charcot. There is also an element of arthritis. 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 no expressed drainage with palpation but patient observes a lot of urine drainage around rather than into catheter) Neuro Exam: Positive: Cranial Nerves 3-12 NL Psych Exam: Positive: Anxiety, Other (patient with moderate agitation and distress. He is not currently fully oriented.) Assessment /Plan Problems (1) UTI (urinary tract infection) due to urinary indwelling catheter Status: Acute Problem Text: U/C 03/12 grew E.Coli resistant to Levaquin Now on Rocephin Suprapubic catheter changed recently due to leakage of urine, but continues to leak and developing breakdown around catheter Will consult Urology (2) Acute metabolic encephalopathy Response to Treatment: Improving Problem Text: Secondary to UTI (3) H/O Clostridium difficile infection Problem Text: Recently completed tx for C. Diff - Having diarrhea again - Reche ck Gi panel and start Vanco emperically for possible recurrent C. Diff - Even if Gi panel neg, would tx with Vanco while on Abx for UTI to prevent re-infection (4) Chronic a-fib Status: Chronic Response to Treatment: Stable Problem Text: On eliquis (5) DM2 (diabetes mellitus, type 2) Status: Chronic Response to Treatment: Stable (6) Neurogenic bladder (7) H/O recurrent urinary tract infection (8) CKD (chronic kidney disease) Status: Chronic Problem Text: Back to baseline after IVF - D/C IVF now that taking po better Plan/VTE VTE Prophylaxis Ordered?: Yes (Eliquis) Plan/Urinary Catheter Urinary Catheter: Other Catheter: (patient has chronic suprapubic catheter) Reason for insertion/continuin: Other-document below (patient has neurogenic bladder) Plan IVF: Initiate Diet: Continue Current Activity: Encourage Ambulation Therapy: PT, OT Medications: Start Antibiotics Diagnostics: Repeat Labs in AM Disposition Patient hoping to go home by Tuesday for daughter's surprise - democrat VS[facility] Signs/I&O Vital Signs Date Time Temp Pulse Resp B/P (MAP) Pulse Ox O2 Delivery O2 Flow Rate FiO2 03/14/19 06:00 98.4 65 15 123/61 (81) 97 03/13/19 16:07 Room Air I&O- Last 24 Hours up to 6 AM 03/14/19 06:00 Intake Total 990 ml Output Total 1175 ml Balance -185 ml Laboratory Data 24H LABS Laboratory Tests 2 03/13/19 10:40: Immature Granulocyte % (Auto) 0.5, White Blood Count 9.2, Red Blood Count 4.33, Hemoglobin 12.4L, Hematocrit 37.9L, Mean Corpuscular Volume 87.5, Mean Corpuscular Hemoglobin 28.6, Mean Corpuscular Hemoglobin Concent 32.7, Red Cell Distribution Width 13.5, Platelet Count 244, Neutrophils (%) (Auto) 76.4H, Lymphocytes (%) (Auto) 16.2L, Monocytes (%) (Auto) 5.2H, Eosinophils (%) (Auto) 1.4, Basophils (%) (Auto) 0.3, Neutrophils # (Auto) 7.0, Lymphocytes # (Auto) 1.5, Monocytes # (Auto) 0.5, Eosinophils # (Auto) 0.1, Basophils # (Auto) 0.0, Nucleated Red Blood Cells % (auto) 0.0, POC Glucose (Misc Panel) 115H, POC Sodium (Misc Panel) 137, POC Potassium (Misc Panel) 4.0, POC Chloride (Misc Panel) 96L, POC Total CO2 (Misc Panel) 30.0H, POC Blood Urea Nitrogen (Misc Panel 30H, POC Ionized Calcium (Misc Panel) 5.6H, POC Creatinine (Misc Panel) 1.3, POC Hematocrit (Misc Panel) 38.0, Anion Gap -5L, Glomerular Filtration Rate 55.2, Calcium Level 10.2, Magnesium Level 2.4, Aspartate Amino Transf (AST/SGOT) 24, Alanine Aminotransferase (ALT/SGPT) 17, Alkaline Phosphatase 72, Total Bilirubin 0.4#, Direct Bilirubin 0.2, Ammonia 21, Total Creatine Kinase 69, Creatine Kinase MB 2.7, Creatine Kinase MB Relative Index 3.91, Troponin I 0.06, Total Protein 7.4, Albumin 3.2, Albumin/Globulin Ratio 0.76L, Thyroid Stimulating Hormone (TSH) 1.620 03/14/19 06:25: Nucleated Red Blood Cells % (auto) 0.0, Anion Gap 4L, Glomerular Filtration Rate > 60.0, Calcium Level 8.8, Blood Urea Nitrogen 25H, Creatinine 1.04, Sodium Level 140#, Potassium Level 4.0, Chloride Level 106, Carbon Dioxide Level 30 CBC/BMP Laboratory Tests 03/13/19 10:40 Red Blood Count 4.33, Mean Corpuscular Volume 87.5, Mean Corpuscular Hemoglobin 28.6, Mean Corpuscular Hemoglobin Concent 32.7, Red Cell Distribution Width 13.5, Neutrophils (%) (Auto) 76.4 H, Lymphocytes (%) (Auto) 16.2 L, Monocytes (%) (Auto) 5.2 H, Eosinophils (%) (Auto) 1.4, Basophils (%) (Auto) 0.3, Neutrophils # (Auto) 7.0, Lymphocytes # (Auto) 1.5, Monocytes # (Auto) 0.5, Eosinophils # (Auto) 0.1, Basophils # (Auto) 0.0 03/14/19 06:25 Red Blood Count 3.62 L, Mean Corpuscular Volume 87.6, Mean Corpuscular Hemoglobin 29.0, Mean Corpuscular Hemoglobin Concent 33.1, Red Cell Distribution Width 13.7, Calcium Level 8.8 BYRON COLEY PA-C Mar 14, 2019 10:38 Lane Mina MD Mar 14, 2019 12:09
--- NOTE | 2019-03-14 13:53 | SMCUROLCON ---
Urology Consultation General Date of Consultation 03/14/19 Reason For Consultation drainage around suprapubic tube History of Present Illness The patient is a 73 year-old male with a past medical history for Urinary retention with chronic suprapubic tube. e has had leakage around the tube. Medications Current Medications Current Medications Acetaminophen (Tylenol Tab) 650 mg Q6H PRN PO PAIN OR FEVER Last administered on 03/13/19at 21:44; Start 03/13/19 at 14:00 Apixaban (Eliquis) 5 mg BID PO Last administered on 03/14/19at 08:51; Start 03/13/19 at 21:00 Atorvastatin Calcium (Lipitor) 40 mg DAILY PO Last administered on 03/14/19at 08:51; Start 03/14/19 at 09:00 Baclofen (Lioresal) 20 mg TID PO Last administered on 03/14/19at 08:50; Start 03/13/19 at 16:00 Bisacodyl (Dulcolax Suppository) 10 mg DAILY PRN CO CONSTIPATION; Start 03/13/19 at 14:00 Ceftriaxone Sodium 1 gm/ Dextrose 50 ml @ 100 mls/hr Q24H IV Last administered on 03/13/19at 16:41; Start 03/13/19 at 15:00 Clotrimazole (Lotrimin) 1 dose BID PRN TOP RASH/ITCHING; Start 03/13/19 at 14:00 Dextrose (Dextrose 50%) 25 ml ASDIRECTED PRN IV SEE LABEL COMMENTS; Start 03/13/19 at 14:00 Fenofibrate (Tricor) 145 mg DAILY PO Last administered on 03/14/19at 08:51; Start 03/14/19 at 09:00 Gabapentin (Neurontin) 600 mg TID PO Last administered on 03/14/19at 08:51; Start 03/13/19 at 21:00 Glucagon (Glucagon) 1 mg ASDIRECTED PRN SC SEE LABEL COMMENTS; Start 03/13/19 at 14:00 Glucose (Glucose) 16 GM ASDIRECTED PRN PO SEE LABEL COMMENTS; Start 03/13/19 at 14:00 Home Med (Med Rec Complete!) ASDIRECTED XX ; Start 03/13/19 at 13:30; Stop 03/13/19 at 13:30; Status DC Insulin Detemir (Levemir Insulin) 10 units BID SC Last administered on 03/14/19at 08:52; Start 03/13/19 at 21:00 Insulin Human Lispro (HumaLOG INSULIN) SEE PROTOCOL TABLE AC SC Last administered on 03/14/19at 13:05; Start 03/13/19 at 17:30 Insulin Human Lispro (HumaLOG INSULIN) SEE PROTOCOL TABLE QHS SC ; Start 03/13/19 at 21:00 Magnesium Oxide (Mag-Ox) 800 mg BID PO Last administered on 03/14/19at 08:51; Start 03/13/19 at 21:00 Nitroglycerin (Nitrostat (1/ 150)) 0.4 mg Q5MP PRN SL CHEST PAIN; Start 03/13/19 at 14:00 Nystatin (Mycostatin Powder, Nystop) 1 dose BID PRN TOP RASH/ITCHING; Start 03/13/19 at 14:00 Ondansetron HCl (ZOFRAN INJection) 4 mg Q6HP PRN IV NAUSEA OR VOMITING; Start 03/13/19 at 14:15 Pantoprazole Sodium (Protonix) 40 mg DAILY PO Last administered on 03/14/19at 08:52; Start 03/14/19 at 09:00 Sodium Chloride 1,000 ml @ 70 mls/hr [id number] IV Last administered on 03/14/19at 04:33; Start 03/13/19 at 14:15; Stop 03/14/19 at 10:42; Status DC Sodium Chloride 1,000 ml @ 150 mls/hr Q6H40M IV Last administered on 03/13/19at 13:38; Start 03/13/19 at 12:57; Stop 03/13/19 at 15:00; Status DC Solifenacin (Vesicare) 10 mg QHS PO Last administered on 03/13/19at 22:53; Start 03/13/19 at 21:00 Vancomycin HCl (First-Vancomycin 50(Firvanq)- 250mg/5ml) 125 mg Q6H PO ; Start 03/14/19 at 12:00 Allergies Allergies: Coded Allergies: Sulfa (Sulfonamide Antibiotics) (Verified Allergy, Intermediate, hives, 12/20/18) alcohol (Verified Allergy, Intermediate, soap rash, 12/20/18) carisoprodol (Verified Allergy, Intermediate, hives, 12/20/18) gum mastic (Verified Allergy, Intermediate, soap rash, 12/20/18) purell mosture therapy latex (Verified Allergy, Intermediate, rash, 12/20/18) methyl salicylate (Verified Allergy, Intermediate, soap rash, 12/20/18) methylparaben (Verified Allergy, Intermediate, hives, 12/20/18) morphine (Verified Allergy, Intermediate, HIVES RASH AT SITE LIKELY HISTAMINE RELEASE, 12/20/18) storax (Verified Allergy, Intermediate, soap rash, 12/20/18) SOO Inhibitors (Verified Allergy, Unknown, 12/20/18) TAPE (Verified Allergy, Unknown, STERISTRIPS, 02/10/18) hydrochlorothiazide (Verified Allergy, Unknown, unsure of reaction, 12/20/18) nitrofurantoin (Verified Adverse Reaction, Mild, diarrhea, 12/20/18) Physical Examination Male Exam I examined the SPT site. No sign of infection. Site with drainage. Vital Signs/I&O Vital Signs Date Time Temp Pulse Resp B/P (MAP) Pulse Ox O2 Delivery O2 Flow Rate FiO2 03/14/19 06:00 98.4 65 15 123/61 (81) 97 03/13/19 16:07 Room Air I&O- Last 24 Hours up to 6 AM 03/14/19 06:00 Intake Total 990 ml Output Total 1175 ml Balance -185 ml Laboratory Data 24H Labs Laboratory Tests 2 03/14/19 06:25: Nucleated Red Blood Cells % (auto) 0.0, Anion Gap 4L, Glomerular Filtration Rate > 60.0, Blood Urea Nitrogen 25H, Creatinine 1.04, Sodium Level 140#, Potassium Level 4.0, Chloride Level 106, Carbon Dioxide Level 30, Calcium Level 8.8 CBC/BMP Laboratory Tests 03/14/19 06:25 Red Blood Count 3.62 L, Mean Corpuscular Volume 87.6, Mean Corpuscular Hemoglobin 29.0, Mean Corpuscular Hemoglobin Concent 33.1, Red Cell Distribution Width 13.7, Calcium Level 8.8 Assessment Drainage at SPT site. T Plan he balloon was pulled closer to create some mild tension. This may low down the drainage around SPT. Patient, daughter and son were informed not to put too much tension or for long periods of time because it may create a pressure ulcer in the bladder. Follow up in urology clinic as previously scheduled. Time Spent on Consult: Time Spent / Consult (Minutes): 15 JUANITA ORTEGA MD Mar 14, 2019 13:53
[2019-03-14 14:00] VITALS: BP 125/70
[2019-03-14] MEDS: VANCOMYCIN ORAL SOL 250MG/5ML ORAL SYRINGE PO SCH ×2 (14:47→16:34)
[2019-03-14] MEDS: cefTRIAXone SOD 1 GM in D5W MINI-BAG PLUS 50 ML IV SCH (15:02)
[2019-03-14] MEDS: ACETAMINOPHEN TAB 650MG DOSE (2X325MG) PO PRN (17:17)
[2019-03-14] MEDS: SOLIFENACIN 5 MG TAB PO SCH (21:32)
[2019-03-14 22:00] VITALS: BP 140/72
[2019-03-15] VITALS (7 sets, daily range): BP systolic 104–153; BP diastolic 50–77
[2019-03-15] MEDS: VANCOMYCIN ORAL SOL 250MG/5ML ORAL SYRINGE PO SCH ×4 (05:15→17:39)
[2019-03-15 06:07] LABS: HEMATOCRIT 31.6 % (42.0-52.0); HEMOGLOBIN 10.3 g/dl (13.5-17.5); MEAN CORPUSCULAR HEMOGLOBIN 28.8 pg (27.0-33.0); MEAN CORPUSCULAR HGB CONC 32.6 g/dl (32.0-36.5); MEAN CORPUSCULAR VOLUME 88.3 fl (80.0-96.0); PLATELET COUNT, AUTOMATED 230 10^3/uL (150-450); RED BLOOD COUNT 3.58 10^6/uL (4.30-6.10); WHITE BLOOD COUNT 7.1 10^3/uL (4.0-10.0)
[2019-03-15] MEDS: HumaLOG INSULIN (NovoLOG) PER UNIT SC SCH ×4 (08:47→21:00)
--- NOTE | 2019-03-15 08:54 | IPNPDOC ---
Subjective Date Seen The patient was seen on 03/15/19. Subjective Chief Complaint/HPI Pt this morning states that he is feeling better. He has no new concerns this morning. General: Denies: Fatigue Constitutional: Denies: Chills, Fever ENT: Denies: Head Aches Pulmonary: Denies: Dyspnea Cardiovascular: Denies: Chest Pain, Palpitations Gastrointestinal: Denies: Nausea, Vomiting, Diarrhea Neurological: Denies: Weakness Psych: Reports: Mood Normal Objective Physical Examination General Exam: Positive: Alert ENT Exam: Positive: Mucous membr. moist/pink Neck Exam: Positive: Supple; Negative: JVD, thyromegaly, +2 carotid pulse wo bruit, Lymphadenopathy, Other Chest Exam: Positive: Clear to auscultation, Normal air movement; Negative: Rales, Rhonchi, Wheezing Heart Exam: Positive: Rate Normal, Regular Rhythm Abdomen Exam: Positive: Normal bowel sounds, Soft, Tenderness, Other (suprapubic catheter site is intact with yellow urine and no leakage currently) Extremity Exam: Positive: Other (patient does have notable joint deformity, especially to his feet consistent with Charcot. There is also an element of arthritis. 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 03/14 U/C 03/12 grew E.Coli resistant to Levaquin Now on Rocephin Suprapubic catheter changed recently due to leakage of urine, but continues to leak and developing breakdown around catheter Will consult Urology (2) Acute metabolic encephalopathy Status: Resolved Response to Treatment: Improving Problem Text: Secondary to UTI (3) H/O Clostridium difficile infection Problem Text: 03/15 No BM since admission. 03/14 Recently completed tx for C. Diff - Having diarrhea again - Recheck Gi panel and start Vanco emperically for possible recurrent C. Diff - Even if Gi panel neg, would tx with Vanco while on Abx for UTI to prevent re-infection (4) Chronic a-fib Status: Chronic Response to Treatment: Stable Problem Text: On eliquis (5) DM2 (diabetes mellitus, type 2) Status: Chronic Response to Treatment: Stable (6) Neurogenic bladder Status: Chronic (7) H/O recurrent urinary tract infection Status: Chronic (8) CKD (chronic kidney disease) Status: Chronic Problem Text: Back to baseline after IVF - D/C IVF now that taking po better Plan/VTE VTE Prophylaxis Ordered?: Yes (Eliquis) Plan/Urinary Catheter Urinary Catheter: Other Catheter: (patient has chronic suprapubic catheter) Reason for insertion/continuin: Other-document below (patient has neurogenic bladder) Plan IVF: Initiate Diet: Continue Current Activity: Encourage Ambulation Therapy: PT, OT Medications: Start Antibiotics Diagnostics: Repeat Labs in AM VS, I&O, 24H, Fishbone Vital Signs/I&O Vital Signs Date Time Temp Pulse Resp B/P (MAP) Pulse Ox O2 Delivery O2 Flow Rate FiO2 03/15/19 06:00 97.0 74 18 153/77 (102) 95 03/13/19 16:07 Room Air I&O- Last 24 Hours up to 6 AM 03/15/19 06:00 Intake Total 2940 ml Output Total 550 ml Balance 2390 ml Laboratory Data 24H LABS Laboratory Tests 2 03/15/19 05:26: Nucleated Red Blood Cells % (auto) 0.0 CBC/BMP Laboratory Tests 03/15/19 05:26 Red Blood Count 3.58 L, Mean Corpuscular Volume 88.3, Mean Corpuscular Hemoglobin 28.8, Mean Corpuscular Hemoglobin Concent 32.6, Red Cell Distribution Width 13.6 JACK CAMARGO PA-C Mar 15, 2019 08:54 Lane Mina MD Mar 15, 2019 09:43
[2019-03-15] MEDS: ATORVASTATIN 20 MG TAB PO SCH (10:30)
[2019-03-15] MEDS: FENOFIBRATE 145 MG TAB (TRICOR) PO SCH (10:31)
[2019-03-15] MEDS: PANTOPRAZOLE 40MG TAB (PROTONIX) PO SCH (10:31)
[2019-03-15] MEDS: MAGNESIUM OXIDE 400 MG TAB (MAG-OX) PO SCH ×2 (10:31→21:39)
[2019-03-15] MEDS: GABAPENTIN 300 MG CAP PO SCH ×3 (10:31→21:38)
[2019-03-15] MEDS: APIXABAN 5 MG TAB (ELIQUIS) PO SCH ×2 (10:32→21:39)
[2019-03-15] MEDS: BISACODYL 10 MG SUPP PR PRN (10:32)
[2019-03-15] MEDS: BACLOFEN 10 MG TAB PO SCH ×3 (10:32→21:38)
[2019-03-15] MEDS: LEVEMIR (INSULIN DETEMIR) 1 UNITS/0.01ML SC SCH ×2 (10:33→21:40)
[2019-03-15] MEDS: cefTRIAXone SOD 1 GM in D5W MINI-BAG PLUS 50 ML IV SCH (15:52)
--- NOTE | 2019-03-15 19:53 | IPNPDOC ---
Subjective Review oF Systems Chief Complaint The patient is a 73-year-old male admitted with a reason for visit of Ankylosing Spondylitis Of Multiple Sites In Spine. Genitourinary: Reports: Other Symptoms (less drainage from SPT site) Objective Physical Examination Heart Exam: Positive: Rate Normal, Regular Rhythm Vital Signs/I&O Vital Signs Date Time Temp Pulse Resp B/P (MAP) Pulse Ox O2 Delivery O2 Flow Rate FiO2 03/15/19 17:55 97.7 73 18 131/61 (84) 97 03/13/19 16:07 Room Air I&O- Last 24 Hours up to 6 AM 03/15/19 05:59 Intake Total 3040 ml Output Total 1350 ml Balance 1690 ml Laboratory Data Labs 24H Laboratory Tests 2 03/15/19 05:26: Nucleated Red Blood Cells % (auto) 0.0 CBC/BMP Laboratory Tests 03/15/19 05:26 Red Blood Count 3.58 L, Mean Corpuscular Volume 88.3, Mean Corpuscular Hemoglobin 28.8, Mean Corpuscular Hemoglobin Concent 32.6, Red Cell Distribution Width 13.6 Microbiology Microbiology 03/15/19 Gastrointestinal Tract Panel (PCR) - Final, Complete Assessment/Plan Date Seen The patient was seen on 03/15/19. Problems (1) UTI (urinary tract infection) due to urinary indwelling catheter Status: Acute Urology Problem Text: SPT permanent. Per nursing staff, drainage around SPT decreased today compared to yesterday. (2) Acute metabolic encephalopathy Status: Resolved (3) H/O Clostridium difficile infection (4) Chronic a-fib Status: Chronic (5) DM2 (diabetes mellitus, type 2) Status: Chronic (6) Neurogenic bladder Status: Chronic (7) H/O recurrent urinary tract infection Status: Chronic (8) CKD (chronic kidney disease) Status: Chronic Plan/VTE VTE Prophylaxis Ordered?: Yes (Eliquis) Plan/Urinary Catheter Urinary Catheter: Other Catheter: (patient has chronic suprapubic catheter) Reason for insertion/continuin: Other-document below (patient has neurogenic bladder) Plan Continue present care. slight tension off and on on the SPT Vaseline gauze at site around the SPT. IVF: Initiate Diet: Continue Current Activity: Encourage Ambulation Therapy: PT, OT Medications: Start Antibiotics Diagnostics: Repeat Labs in AM JUANITA ORTEGA MD Mar 15, 2019 19:53
[2019-03-15] MEDS: SOLIFENACIN 5 MG TAB PO SCH (21:38)
[2019-03-16] MEDS: VANCOMYCIN ORAL SOL 250MG/5ML ORAL SYRINGE PO SCH ×4 (00:26→17:33)
[2019-03-16 07:14] LABS: CALCIUM LEVEL 9.6 MG/DL (8.8-10.2); CREATININE FOR GFR 1.26 MG/DL (0.70-1.30); GLOMERULAR FILTRATION RATE 59.7 (>42); POTASSIUM SERUM 4.2 MEQ/L (3.5-5.1)
--- NOTE | 2019-03-16 08:13 | IPNPDOC ---
Subjective Date Seen The patient was seen on 03/16/19. Subjective Chief Complaint/HPI No further leakage from catheter Constitutional: Denies: Chills, Fever Pulmonary: Denies: Dyspnea, Cough Cardiovascular: Denies: Chest Pain, Palpitations Gastrointestinal: Denies: Nausea, Vomiting, Abdominal Pain, Diarrhea, Constipation Objective Physical Examination General Exam: Positive: Alert, No Acute Distress ENT Exam: Positive: Mucous membr. moist/pink Neck Exam: Positive: Supple; Negative: JVD, thyromegaly, +2 carotid pulse wo bruit, Lymphadenopathy, Other Chest Exam: Positive: Clear to auscultation, Normal air movement; Negative: Rales, Rhonchi, Wheezing Heart Exam: Positive: Rate Normal, Regular Rhythm Abdomen Exam: Positive: Normal bowel sounds, Soft, Tenderness, Other (suprapu bic catheter site is intact with yellow urine and no leakage currently) Extremity Exam: Positive: Other (patient does have notable joint deformity, especially to his feet consistent with Charcot. There is also an element of arthritis. 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.) Neuro Exam: Positive: Cranial Nerves 3-12 NL Psych Exam: Positive: Mental status NL, Mood NL Assessment /Plan Problems (1) UTI (urinary tract infection) due to urinary indwelling catheter Status: Acute Problem Text: 03/16 - Stevie Ambrocio#4 - Urology recommended Vaseline gauze and has suggested pulling catheter balloon tight against bladder wall to prevent leakage for periods of time, but should not keep it there for extended periods of time so as to prevent bladder wall erosion I will continue IV abx today and then could switch to po Kelex tomorrow Goal for patient is to go home on tuesday morning to attend his daughter's 50th B-day democrat If he is not safe from PT standpoint at that time, we could make SNF for ST rehab if PFS agrees to this and he could leave Tuesday for democrat and return for rehab after democrat 03/15 Rocephirichi D3, MS has improved, Uro has seen and made adjustments to cath to prevent leakage. 03/14 U/C 03/12 grew E.Coli resistant to Levaquin Now on Rocephin Suprapubic catheter changed recently due to leakage of urine, but continues to leak and developing breakdown around catheter Will consult Urology (2) CKD (chronic kidney disease) Status: Chronic Problem Text: Spironolactone and Lasix held on admission - Restart Lasix due to hyponatremia - likely from excessive po fluid intake. renal fx - Back to baseline after IVF (3) Acute metabolic encephalopathy Status: Resolved Problem Text: Secondary to UTI (4) H/O Clostridium difficile infection Problem Text: 03/16 - GI panel negative Cont Vanco for prevention while on Abx for UTI 03/15 No BM since admission. 03/14 Recently completed tx for C. Diff - Having diarrhea again - Recheck Gi panel and start Vanco emperically for possible recurrent C. Diff - Even if Gi panel neg, would tx with Vanco while on Abx for UTI to prevent re-infection (5) Chronic a-fib Status: Chronic Problem Text: On eliquis (6) DM2 (diabetes mellitus, type 2) Status: Chronic (7) Neurogenic bladder Status: Chronic (8) H/O recurrent urinary tract infection Status: Chronic Plan/VTE VTE Prophylaxis Ordered?: Yes (Eliquis) Plan/Urinary Catheter Urinary Catheter: Other Catheter: (patient has chronic suprapubic catheter) Reason for insertion/continuin: Other-document below (patient has neurogenic bladder) Plan IVF: Initiate Diet: Continue Current Activity: Encourage Ambulation Therapy: PT, OT Medications: Start Antibiotics Diagnostics: Repeat Labs in AM Disposition Probable D/C home Tuesday vs SNF fro subacute rehab VS, I&O, 24H, [facility] Vital Signs/I&O Vital Signs Date Time Temp Pulse Resp B/P (MAP) Pulse Ox O2 Delivery O2 Flow Rate FiO2 03/15/19 21:37 98.8 72 17 134/73 (93) 97 03/13/19 16:07 Room Air I&O- Last 24 Hours up to 6 AM 03/16/19 06:00 Intake Total 2880 ml Output Total 475 ml Balance 2405 ml Laboratory Data 24H LABS Laboratory Tests 2 03/16/19 05:25: Anion Gap 2L, Glomerular Filtration Rate 59.7, Blood Urea Nitrogen 18, Creatinine 1.26, Sodium Level 135L, Potassium Level 4.2, Chloride Level 104, Carbon Dioxide Level 29, Calcium Level 9.6 CBC/BMP Laboratory Tests 03/16/19 05:25 Calcium Level 9.6 Microbiology Microbiology 03/15/19 Gastrointestinal Tract Panel (PCR) - Final, Complete BYRON COLEY PA-C Mar 16, 2019 08:13
[2019-03-16] MEDS: HumaLOG INSULIN (NovoLOG) PER UNIT SC SCH ×4 (09:30→21:36)
[2019-03-16] MEDS: BACLOFEN 10 MG TAB PO SCH ×3 (09:31→21:35)
[2019-03-16] MEDS: SPIRONOLACTONE 12.5MG PER 1/2 TABLET PO SCH (09:31)
[2019-03-16] MEDS: GABAPENTIN 300 MG CAP PO SCH ×3 (09:31→21:35)
[2019-03-16] MEDS: ATORVASTATIN 20 MG TAB PO SCH (09:31)
[2019-03-16] MEDS: APIXABAN 5 MG TAB (ELIQUIS) PO SCH ×2 (09:31→21:35)
[2019-03-16] MEDS: FUROSEMIDE 40 MG TAB PO SCH (09:31)
[2019-03-16] MEDS: FENOFIBRATE 145 MG TAB (TRICOR) PO SCH (09:31)
[2019-03-16] MEDS: PANTOPRAZOLE 40MG TAB (PROTONIX) PO SCH (09:31)
[2019-03-16] MEDS: LEVEMIR (INSULIN DETEMIR) 1 UNITS/0.01ML SC SCH ×2 (09:31→21:36)
[2019-03-16] MEDS: MAGNESIUM OXIDE 400 MG TAB (MAG-OX) PO SCH ×2 (09:31→21:35)
[2019-03-16 14:18] VITALS: BP 130/72
[2019-03-16] MEDS: cefTRIAXone SOD 1 GM in D5W MINI-BAG PLUS 50 ML IV SCH (15:52)
[2019-03-16 20:38] VITALS: BP 136/73
[2019-03-16] MEDS: SOLIFENACIN 5 MG TAB PO SCH (21:35)
[2019-03-17] MEDS: VANCOMYCIN ORAL SOL 250MG/5ML ORAL SYRINGE PO SCH ×5 (00:27→22:08)
[2019-03-17 06:37] LABS: BLOOD UREA NITROGEN 17 MG/DL (7-18); CALCIUM LEVEL 8.9 MG/DL (8.8-10.2); CARBON DIOXIDE LEVEL 25 MEQ/L (21-32); CHLORIDE LEVEL 102 MEQ/L (98-107); CREATININE FOR GFR 1.16 MG/DL (0.70-1.30); GLOMERULAR FILTRATION RATE > 60.0 (>42); GLUCOSE, FASTING 221 MG/DL (70-100); POTASSIUM SERUM 4.1 MEQ/L (3.5-5.1); SODIUM LEVEL 135 MEQ/L (136-145)
[2019-03-17 06:50] VITALS: BP 149/68
[2019-03-17 08:32] VITALS: BP 143/67
[2019-03-17] MEDS: HumaLOG INSULIN (NovoLOG) PER UNIT SC SCH ×4 (08:44→21:00)
[2019-03-17] MEDS: APIXABAN 5 MG TAB (ELIQUIS) PO SCH ×2 (08:45→22:07)
[2019-03-17] MEDS: LEVEMIR (INSULIN DETEMIR) 1 UNITS/0.01ML SC SCH ×2 (08:45→21:00)
[2019-03-17] MEDS: MAGNESIUM OXIDE 400 MG TAB (MAG-OX) PO SCH ×2 (08:45→22:08)
[2019-03-17] MEDS: BACLOFEN 10 MG TAB PO SCH ×3 (08:45→22:08)
[2019-03-17] MEDS: ATORVASTATIN 20 MG TAB PO SCH (08:46)
[2019-03-17] MEDS: SPIRONOLACTONE 12.5MG PER 1/2 TABLET PO SCH (08:47)
[2019-03-17] MEDS: PANTOPRAZOLE 40MG TAB (PROTONIX) PO SCH (08:47)
[2019-03-17] MEDS: FENOFIBRATE 145 MG TAB (TRICOR) PO SCH (08:48)
[2019-03-17] MEDS: GABAPENTIN 300 MG CAP PO SCH ×3 (08:48→22:07)
[2019-03-17] MEDS: FUROSEMIDE 40 MG TAB PO SCH (08:48)
--- NOTE | 2019-03-17 09:23 | ECGEPIP ---
[facility] Test Date: 2019-03-17 Pat Name: TANIA HESS Department: Room: [place] [address] Gender: Male Clinical Asst: TAMARA : 1945 Requested By: Lane Ambrocio Order Number: [id number] Reading MD: Carissa Limon Measurements Intervals [place] Rate: 76 P: [place]: -1 QRS: 116 QRSD: 169 T: 10 QT: 393 QTc: 443 Interpretive Statements ATRIAL FIBRILLATION MARKED RIGHT AXIS DEVIATION RIGHT BUNDLE BRANCH BLOCK Electronically Signed on 03-17-2019 9:23:24 EDT by Carissa Limon
--- NOTE | 2019-03-17 10:00 | REP ---
CT brain without contrast: History: Change in mental status. Comparison study March 12, 2019. Findings: Preliminary digital scudding inspector radiograph shows no abnormality. No bony calvarial lesion is appreciated. Visualized paranasal sinuses are clear. No intraorbital abnormality is seen. Vascular calcification is again noted in the distal vertebral and carotid distribution. There is mild generalized volume loss again visible. There is no evidence of intracranial hemorrhage. Santa-white differentiation pattern is normal above and below the tentorium. There are some small vessel atherosclerotic changes present as before. Ventricular size is unchanged. There is no mass, infarct or midline shift. Impression: Diffuse atrophy, vascular calcification and some small vessel changes as before. No acute intracranial abnormality. Electronically Signed by Jean Marie Hollins MD 03/17/2019 12:04 P
[2019-03-17] MEDS ORDERED: D5W/0.9% SODIUM CHLORIDE 1,000 ML IV SCH (10:30)
--- NOTE | 2019-03-17 12:03 | REP ---
Bilateral carotid duplex sonography: History: TIA. Findings: Antegrade flow was observed in both vertebral arteries. Right carotid: The right common carotid artery shows mild diffuse intimal thickening. There is mixed plaquing in the bulb and proximal ICA on two-dimensional scanning. Color flow and spectral Doppler interrogation are unremarkable on the right. Velocity chart right carotid: Right CCA PSV 90 cm/s Right ICA PSV 89 EDV 17 Right ECA PSV 162 Right ICA/CCA ratio normal 1.0. Impression: Less than 50% category narrowing in the right ICA. Left carotid: The left common carotid artery shows mild soft plaquing and diffuse intimal thickening. There is mixed plaquing in the bulb and proximal ICA on the left side on two-dimensional scanning. Color flow and spectral Doppler interrogation are unremarkable on the left. Velocity chart left carotid: Left CCA PSV 176 cm/s Left ICA PSV 114 EDV 22 Left ECA PSV 117 Left ICA/CCA ratio normal 0.7. Impression: Less than 50% category narrowing in the left ICA by Doppler velocity criteria. Electronically Signed by Jean Marie Hollins MD 03/17/2019 01:35 P
--- NOTE | 2019-03-17 12:34 | IPNPDOC ---
Subjective Date Seen The patient was seen on 03/17/19. Subjective Chief Complaint/HPI slurred speech, right side week Pulmonary: Denies: Dyspnea Cardiovascular: Denies: Chest Pain Gastrointestinal: Denies: Nausea Hematologic: Denies: Bruising Neurological: Reports: Change in speech Objective Physical Examination General Exam: Positive: Alert, No Acute Distress ENT Exam: Positive: Mucous membr. moist/pink Neck Exam: Positive: Supple; Negative: JVD, thyromegaly, +2 carotid pulse wo bruit, Lymphadenopathy, Other Chest Exam: Positive: Clear to auscultation, Normal air movement; Negative: Rales, Rhonchi, Wheezing Heart Exam: Positive: Rate Normal, Regular Rhythm Abdomen Exam: Positive: Normal bowel sounds, Soft, Tenderness, Other (suprapubic catheter site is intact with yellow urine and no leakage currently) Extremity Exam: Positive: Other (patient does have notable joint deformity, especially to his feet consistent with Charcot. There is also an element of arthritis. 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 Forman) Problem Text: Noted at 0800 to be less alert, appeared to have right sided weakness, speech was difficult for him, gradually resolving by [address], per radiology no change. Patient on eliquis and no definite start time for the event so thrombolytics not indicated. May be candidate for addition of antiplatelet agent. (2) UTI (urinary tract infection) due to urinary indwelling catheter Status: Acute Problem Text: 03/17: Rocephin D#5 03/16 - Rocephin D#4 - Urology recommended Vaseline gauze and has suggested pulling catheter balloon tight against bladder wall to prevent leakage for periods of time, but should not keep it there for extended periods of time so as to prevent bladder wall erosion I will continue IV abx today and then could switch to po Kelex tomorrow Goal for patient is to go home on tuesday morning to attend his daughter's - constitution party If he is not safe from PT standpoint at that time, we could make SNF for ST rehab if PFS agrees to this and he could leave Tuesday for constitution party and return for rehab after constitution party 03/15 Rocephin D3, MS has improved, Uro has seen and made adjustments to cath to prevent leakage. 03/14 U/C 03/12 grew E.Coli resistant to Levaquin Now on Rocephin Suprapubic catheter changed recently due to leakage of urine, but continues to leak and developing breakdown around catheter Will consult Urology (3) CKD (chronic kidney disease) Status: Chronic Problem Text: Spironolactone and Lasix held on admission - Restart Lasix due to hyponatremia - likely from excessive po fluid intake. renal fx - Back to baseline after IVF (4) Acute metabolic encephalopathy Status: Resolved Problem Text: Secondary to UTI (5) H/O Clostridium difficile infection Problem Text: 03/16 - GI panel negative Cont Vanco for prevention while on Abx for UTI 03/15 No BM since admission. 03/14 Recently completed tx for C. Diff - Having diarrhea again - Recheck Gi panel and start Vanco emperically for possible recurrent C. Diff - Even if Gi panel neg, would tx with Vanco while on Abx for UTI to prevent re-infection (6) Chronic a-fib Status: Chronic Problem Text: On eliquis (7) DM2 (diabetes mellitus, type 2) Status: Chronic (8) Neurogenic bladder Status: Chronic (9) H/O recurrent urinary tract infection Status: Chronic Plan/VTE VTE Prophylaxis Ordered?: Yes (Eliquis) Plan/Urinary Catheter Urinary Catheter: Other Catheter: (patient has chronic suprapubic catheter) Reason for insertion/continuin: Other-document below (patient has neurogenic bladder) Plan IVF: Initiate Diet: Continue Current Activity: Encourage Ambulation Therapy: PT, OT Medications: Start Antibiotics Diagnostics: Repeat Labs in AM VS, I&O, 24H, Fishbone Vital Signs/I&O Vital Signs Date Time Temp Pulse Resp B/P (MAP) Pulse Ox O2 Delivery O2 Flow Rate FiO2 03/17/19 08:32 99.1 99 20 143/67 (92) 96 03/13/19 16:07 Room Air I&O- Last 24 Hours up to 6 AM 03/17/19 06:00 Intake Total 1470 ml Output Total 3100 ml Balance -1630 ml Laboratory Data 24H LABS Laboratory Tests 2 03/17/19 05:42: Anion Gap 8, Glomerular Filtration Rate > 60.0, Blood Urea Nitrogen 17, Creatinine 1.16, Sodium Level 135L, Potassium Level 4.1, Chloride Level 102, Carbon Dioxide Level 25, Calcium Level 8.9 CBC/BMP Laboratory Tests 03/17/19 05:42 Calcium Level 8.9 Microbiology Microbiology 03/15/19 Gastrointestinal Tract Panel (PCR) - Final, Complete Lane Mina MD Mar 17, 2019 12:34
[2019-03-17 14:47] VITALS: BP 134/67
[2019-03-17] MEDS: cefTRIAXone SOD 1 GM in D5W MINI-BAG PLUS 50 ML IV SCH (15:03)
[2019-03-17] MEDS: ACETAMINOPHEN TAB 650MG DOSE (2X325MG) PO PRN ×2 (15:03→23:13)
[2019-03-17 22:00] VITALS: BP 132/65
[2019-03-17] MEDS: SOLIFENACIN 5 MG TAB PO SCH (22:08)
--- NOTE | 2019-03-18 01:27 | CR ---
DATE OF CONSULTATION: 03/17/2019 REFERRING PHYSICIAN: Lane Mina MD REASON FOR CONSULTATION: Altered mental status. 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 The patient had a suprapubic catheter. He has a history recurrent urinary tract infection. The patient's family states that with infection and hospitalization he becomes confused and lethargic. He had these symptoms on Tuesday prior to admission. He was admitted due to failure of outpatient treatment of urinary tract infection and metabolic encephalopathy. The patient has been using a walker since 2013. Over the weekend, he became confused, tired and weak all over. This morning when nurses went to check up on him at 8 in the morning he could not talk. His arms and legs appeared heavy. He felt weak all over. He had some trouble with his speech at that time. A year ago he had several syndrome of inappropriate antidiuretic hormone secretion (SIADH). By the time I saw him, the patient's family felt that he is feeling better and back to his normal self. He appeared drowsy, but would wake up to follow commands. He denies any headaches, neck or back pain. He denies any falls, loss of consciousness, dysphagia, diplopia. PAST MEDICAL HISTORY: 1. Atrial fibrillation. 2. Hypertension 3. Diabetes 4. Ankylosing spondylitis. 5. Benign prostate enlargement. 6. Congestive heart failure. 7. Migraines. 8. Recurrent urinary tract infection. 9. History of decompressive laminectomy and removal of spinal cord lipoma followed by hematoma in the thoracic spinal cord. PAST SURGICAL HISTORY: Postoperative spinal infection, right knee replacement left hemicolectomy, right hip replacement, hernia repair, pacemaker placement, Ann filter placement for prevention of pulmonary embolism. HOME MEDICATIONS: - Eliquis 5 mg by mouth twice a day - Lipitor 40 mg by mouth daily - baclofen 20 mg by mouth three times a day - Lasix 40 mg by mouth daily - gabapentin 6 mg by mouth three times a day - insulin Lantus 10 units subcutaneous twice a day - levofloxacin 250 mg by mouth daily - Claritin 10 mg by mouth daily - Protonix 40 mg by mouth daily - spironolactone 25 mg half a tablet by mouth daily - VESIcare 10 mg by mouth at bedtime (q.h.s.) - Protonix 40 mg by mouth daily - magnesium oxide 800 mg by mouth twice a day SOCIAL HISTORY: He denies smoking, alcohol or illicit drugs. FAMILY HISTORY: Noncontributory. REVIEW OF SYSTEMS: All systems were reviewed and found to be noncontributory except as mentioned in the history of present illness. PHYSICAL EXAMINATION: Temperature 99.1, pulse 99, respiratory 20, blood pressure 143/67, heart regular rate and rhythm. Lungs: Clear to auscultation. Abdomen: Soft, nontender, nondistended. No pedal edema. No musculoskeletal abnormalities. No rash. No signs of meningeal irritation. The patient is drowsy but is arousable. He is able to follow simple commands. He is oriented to year, name of president and city. Extraocular muscles are intact. No facial weakness. Tongue and uvula are midline. 5/5 strength in bilateral upper extremities. Left leg strength is 4+/5 and right leg strength is 3/5 He has decreased cold, pinprick, vibration sensation in his feet. Gait could not be tested. There is no dysmetria. DIAGNOSTIC STUDIES: CT scan of his head showed small vessel ischemic disease of brain. Carotid ultrasound showed less than 50% bilateral carotid artery stenosis. ASSESSMENT: 1. Delirium due to urinary tract infection and hospitalization. 2. Concern for transient ischemic attack (TIA), although my index for suspicion is low. The patient has been compliant with Eliquis and he has been getting his Eliquis regularly in the hospital. 3. Bilateral carotid artery less than 50% stenosis. 4. Atrial fibrillation. 5. History of paraplegia due to thoracic spinal cord lipoma removal followed by hematoma in thoracic spinal cord. PLAN: 1. Physical and occupational therapy. 2. The patient cannot have Magnetic Resonance Imaging (MRI) scan of brain due to his pacemaker and Ann filter and inferior vena cava (IVC) filter. 3. Continue Eliquis 5 mg by mouth twice a day and Lipitor 40 mg by mouth daily. 4. If he has further episodes of neurological deficit, we can consider adding aspirin 81 mg by mouth daily in the future. 5. If delirium remains a problem, we can consider Abilify 2 mg by mouth at bedtime (q.h.s.)
[2019-03-18] MEDS: ACETAMINOPHEN TAB 650MG DOSE (2X325MG) PO PRN ×2 (05:56→21:19)
[2019-03-18] MEDS: VANCOMYCIN ORAL SOL 250MG/5ML ORAL SYRINGE PO SCH ×3 (05:56→17:28)
[2019-03-18 06:00] VITALS: BP 131/69
[2019-03-18] MEDS: HumaLOG INSULIN (NovoLOG) PER UNIT SC SCH ×4 (07:30→21:18)
[2019-03-18 07:43] LABS: BLOOD UREA NITROGEN 17 MG/DL (7-18); CALCIUM LEVEL 9.5 MG/DL (8.8-10.2); CARBON DIOXIDE LEVEL 29 MEQ/L (21-32); CHLORIDE LEVEL 102 MEQ/L (98-107); CREATININE FOR GFR 1.22 MG/DL (0.70-1.30); GLOMERULAR FILTRATION RATE > 60.0 (>42); GLUCOSE, FASTING 117 MG/DL (70-100); POTASSIUM SERUM 4.2 MEQ/L (3.5-5.1); SODIUM LEVEL 137 MEQ/L (136-145)
[2019-03-18] MEDS: LEVEMIR (INSULIN DETEMIR) 1 UNITS/0.01ML SC SCH ×2 (10:20→21:18)
[2019-03-18] MEDS: FUROSEMIDE 40 MG TAB PO SCH (10:20)
[2019-03-18] MEDS: ATORVASTATIN 20 MG TAB PO SCH (10:21)
[2019-03-18] MEDS: SPIRONOLACTONE 12.5MG PER 1/2 TABLET PO SCH (10:21)
[2019-03-18] MEDS: BACLOFEN 10 MG TAB PO SCH ×3 (10:21→21:18)
[2019-03-18] MEDS: GABAPENTIN 300 MG CAP PO SCH ×3 (10:21→21:18)
[2019-03-18] MEDS: PANTOPRAZOLE 40MG TAB (PROTONIX) PO SCH (10:21)
[2019-03-18] MEDS: APIXABAN 5 MG TAB (ELIQUIS) PO SCH ×2 (10:21→21:17)
[2019-03-18] MEDS: FENOFIBRATE 145 MG TAB (TRICOR) PO SCH (10:21)
[2019-03-18] MEDS: MAGNESIUM OXIDE 400 MG TAB (MAG-OX) PO SCH ×2 (10:22→21:17)
--- NOTE | 2019-03-18 12:23 | IPNPDOC ---
Subjective Date Seen The patient was seen on 03/18/19. Subjective Chief Complaint/HPI catheter is leaking a bit General: Denies: Chills Constitutional: Denies: Fever ENT: Denies: Head Aches Pulmonary: Denies: Dyspnea, Pleuritic Chest Pain Gastrointestinal: Denies: Nausea, Abdominal Pain Psych: Reports: Mood Normal Objective Physical Examination General Exam: Positive: Alert, No Acute Distress ENT Exam: Positive: Mucous membr. moist/pink Neck Exam: Positive: Supple; Negative: JVD, thyromegaly, +2 carotid pulse wo bruit, Lymphadenopathy, Other Chest Exam: Positive: Clear to auscultation, Normal air movement; Negative: Rales, Rhonchi, Wheezing Heart Exam: Positive: Rate Normal, Regular Rhythm Abdomen Exam: Positive: Normal bowel sounds, Soft, Tenderness, Other (suprapubic catheter site is intact with yellow urine and no leakage currently) Extremity Exam: Positive: Other (patient does have notable joint deformity, especially to his feet consistent with Charcot. There is also an element of arthritis. 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 not oriented to time.), Mood NL Assessment /Plan Problems (1) Altered mental status Status: Acute Response to Treatment: Improving Problem Specific Plan: Consult Specialist (Dr. Forman) Problem Text: 03/19 seems essentially normal today. Reviewed Dr. Forman's note and appreciate his input. He is taking lioresal, a med capable of causing changes in mental alertness so will reduce dose to 10mg daily. Noted at 0800 to be less alert, appeared to have right sided weakness, speech wa s difficult for him, gradually resolving by [address], per radiology no change. Patient on eliquis and no definite start time for the event so thrombolytics not indicated. May be candidate for addition of antiplatelet agent. (2) UTI (urinary tract infection) due to urinary indwelling catheter Status: Acute Problem Text: 03/18: Rocephin day 6 03/17: Rocephin D#5 03/16 - Rocephin D#4 - Urology recommended Vaseline gauze and has suggested pulling catheter balloon tight against bladder wall to prevent leakage for periods of time, but should not keep it there for extended periods of time so as to prevent bladder wall erosion I will continue IV abx today and then could switch to po Kelex tomorrow Goal for patient is to go home on tuesday morning to attend his daughter's - green party If he is not safe from PT standpoint at that time, we could make SNF for ST rehab if PFS agrees to this and he could leave Tuesday for green party and return for rehab after green party 03/15 Rocephin D3, MS has improved, Uro has seen and made adjustments to cath to prevent leakage. 03/14 U/C 03/12 grew E.Coli resistant to Levaquin Now on Rocephin Suprapubic catheter changed recently due to leakage of urine, but continues to leak and developing breakdown around catheter Will consult Urology (3) CKD (chronic kidney disease) Status: Chronic Response to Treatment: Stable Problem Text: Spironolactone and Lasix held on admission - Restart Lasix due to hyponatremia - likely from excessive po fluid intake. renal fx - Back to baseline after IVF (4) Acute metabolic encephalopathy Status: Resolved Response to Treatment: Improving Problem Text: Secondary to UTI (5) H/O Clostridium difficile infection Problem Text: 03/16 - GI panel negative Cont Vanco for prevention while on Abx for UTI 03/15 No BM since admission. 03/14 Recently completed tx for C. Diff - Having diarrhea again - Recheck Gi panel and start Vanco emperically for possible recurrent C. Diff - Even if Gi panel neg, would tx with Vanco while on Abx for UTI to prevent re-infection (6) Chronic a-fib Status: Chronic Problem Text: On eliquis (7) DM2 (diabetes mellitus, type 2) Status: Chronic (8) Neurogenic bladder Status: Chronic (9) H/O recurrent urinary tract infection Status: Chronic Plan/VTE VTE Prophylaxis Ordered?: Yes (Eliquis) Plan/Urinary Catheter Urinary Catheter: Other Catheter: (patient has chronic suprapubic catheter) Reason for insertion/continuin: Other-document below (patient has neurogenic bladder) Plan IVF: Initiate Diet: Continue Current Activity: Encourage Ambulation Therapy: PT, OT Medications: Start Antibiotics Diagnostics: Repeat Labs in AM VS, I&O, 24H, Fishbone Vital Signs/I&O Vital Signs Date Time Temp Pulse Resp B/P (MAP) Pulse Ox O2 Delivery O2 Flow Rate FiO2 03/18/19 06:00 97.8 73 20 131/69 (89) 93 03/13/19 16:07 Room Air I&O- Last 24 Hours up to 6 AM 03/18/19 06:00 Intake Total 790 ml Output Total 2650 ml Balance -1860 ml Laboratory Data 24H LABS Laboratory Tests 2 03/17/19 21:06: Bedside Glucose (Misc Panel) 243H 03/18/19 06:14: Anion Gap 6L, Glomerular Filtration Rate > 60.0, Blood Urea Nitrogen 17, Creatinine 1.22, Sodium Level 137, Potassium Level 4.2, Chloride Level 102, Carbon Dioxide Level 29, Calcium Level 9.5 CBC/BMP Laboratory Tests 03/18/19 06:14 Calcium Level 9.5 Microbiology Microbiology 03/15/19 Gastrointestinal Tract Panel (PCR) - Final, Complete Lane Mina MD Mar 18, 2019 12:23
[2019-03-18 14:00] VITALS: BP 108/52
[2019-03-18] MEDS: cefTRIAXone SOD 1 GM in D5W MINI-BAG PLUS 50 ML IV SCH (15:55)
[2019-03-18] MEDS: SOLIFENACIN 5 MG TAB PO SCH (21:17)
[2019-03-18 22:00] VITALS: BP 115/54
[2019-03-19] MEDS: VANCOMYCIN ORAL SOL 250MG/5ML ORAL SYRINGE PO SCH ×4 (00:26→17:49)
[2019-03-19 06:00] VITALS: BP 102/51
[2019-03-19] MEDS: HumaLOG INSULIN (NovoLOG) PER UNIT SC SCH ×4 (09:07→20:34)
[2019-03-19] MEDS: GABAPENTIN 300 MG CAP PO SCH ×3 (09:08→20:32)
[2019-03-19] MEDS: FUROSEMIDE 40 MG TAB PO SCH (09:08)
[2019-03-19] MEDS: BACLOFEN 10 MG TAB PO SCH ×3 (09:08→20:31)
[2019-03-19] MEDS: APIXABAN 5 MG TAB (ELIQUIS) PO SCH ×2 (09:08→20:32)
[2019-03-19] MEDS: LEVEMIR (INSULIN DETEMIR) 1 UNITS/0.01ML SC SCH ×2 (09:08→20:34)
[2019-03-19] MEDS: PANTOPRAZOLE 40MG TAB (PROTONIX) PO SCH (09:08)
[2019-03-19] MEDS: MAGNESIUM OXIDE 400 MG TAB (MAG-OX) PO SCH ×2 (09:09→20:32)
[2019-03-19] MEDS: ATORVASTATIN 20 MG TAB PO SCH (09:09)
[2019-03-19] MEDS: SPIRONOLACTONE 12.5MG PER 1/2 TABLET PO SCH (09:09)
[2019-03-19] MEDS: FENOFIBRATE 145 MG TAB (TRICOR) PO SCH (09:09)
--- NOTE | 2019-03-19 09:49 | NUR ---
Pt presents with mild pharyngeal phase dysphagia as characterized by mild regurgitation of solids. Pt currently with pneumonia Recommend: Regular solids/thin liquids. Meds whole with liquid wash. Recommend: Modified Barium Swallow Study Addendum: 03/19/19 at 0950 by SELENA GARSIA [facility] Amended: Links added.
--- NOTE | 2019-03-19 09:58 | IPNPDOC ---
Subjective Date Seen The patient was seen on 03/19/19. Subjective Chief Complaint/HPI UTI, metabolic encephalopathy Events since last encounter febrile over the last 24 hours. Tylenol with relief of fever. Patient c/o feeling weak and tired. Constitutional: Reports: Fever, Malaise, Fatigue Cardiovascular: Denies: Chest Pain, Palpitations, Orthopnea, Paroxysmal Noc. Dyspnea, Lt Headedness Gastrointestinal: Denies: Nausea, Vomiting, Abdominal Pain, Diarrhea, Constipation Genitourinary: Reports: Other Symptoms (suprapubic catheter) Psych: Reports: Mood Normal; Denies: Depression, Memory Issues Objective Physical Examination General Exam: Positive: Alert, No Acute Distress, Other (skin is warm to touch. etmp is 100) ENT Exam: Positive: Mucous membr. moist/pink Neck Exam: Positive: Supple; Negative: JVD, thyromegaly, +2 carotid pulse wo bruit, Lymphadenopathy, Other Chest Exam: Positive: Clear to auscultation, Normal air movement; Negative: Rales, Rhonchi, Wheezing Heart Exam: Positive: Rate Normal, Regular Rhythm Abdomen Exam: Positive: Normal bowel sounds, Soft, Tenderness, Other (suprapubic catheter site is intact with yellow urine and no leakage currently) Extremity Exam: Positive: Other (patient does have notable joint deformity, especially to his feet consistent with Charcot. There is also an element of arthritis. 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 ), Mood NL Assessment /Plan Assessment 03/19 -- Leukocytosis and persistent fever noted. When asked, patient admitted to cough. CXR with infiltrate. Abx adjusted. -- CDT Problems (1) UTI (urinary tract infection) due to urinary indwelling catheter Status: Acute Problem Text: 03/19/19: today is day #7 for Rocephin. Patient is febrile. CBC, BMP, blood cultures ordered. Tylenol prn fever. E. Coli noted in UCS from 03/12 with sensitivity to Ceftriaxone. CXR to r/o pneumonia. 03/18: Rocephin day 6 03/17: Rocephin D#5 03/16 - Rocephin D#4 - Urology recommended Vaseline gauze and has suggested pulling catheter balloon tight against bladder wall to prevent leakage for periods of time, but should not keep it there for extended periods of time so as to prevent bladder wall erosion I will continue IV abx today and then could switch to po Kelex tomorrow Goal for patient is to go home on tuesday morning to attend his daughter's 50-day libertarian If he is not safe from PT standpoint at that time, we could make SNF for ST rehab if PFS agrees to this and he could leave Tuesday for libertarian and return for rehab after libertarian 03/15 Rocephin D3, MS has improved, Uro has seen and made adjustments to cath to prevent leakage. 03/14 U/C 03/12 grew E.Coli resistant to Levaquin Now on Rocephin Suprapubic catheter changed recently due to leakage of urine, but continues to leak and developing breakdown around catheter Will consult Urology (2) Altered mental status Status: Acute Response to Treatment: Improving Problem Specific Plan: Consult Specialist (Dr. Forman) Problem Text: 03/19 seems essentially normal today. Reviewed Dr. Forman's note and appreciate his input. He is taking lioresal, a med capable of causing changes in mental alertness so will reduce dose to 10mg daily. Noted at 0800 to be less alert, appeared to have right sided weakness, speech was difficult for him, gradually resolving by [address] done, per radiology no change. Patient on eliquis and no definite start time for the event so thrombolytics not indicated. May be candidate for addition of antiplatelet agent. (3) CKD (chronic kidney disease) Status: Chronic Response to Treatment: Stable Problem Text: 03/19/2019: sodium normalized on 03/19. Appears well compensated. Spironolactone and Lasix held on admission - Restart Lasix due to hyponatremia - likely from excessive po fluid intake. renal fx - Back to baseline after IVF (4) Acute metabolic encephalopathy Status: Resolved Response to Treatment: Improving Problem Text: Secondary to UTI (5) H/O Clostridium difficile infection Problem Text: 03/16 - GI panel negative Cont Vanco for prevention while on Abx for UTI 03/15 No BM since admission. 03/14 Recently completed tx for C. Diff - Having diarrhea again - Recheck Gi panel and start Vanco emperically for possible recurrent C. Diff - Even if Gi panel neg, would tx with Vanco while on Abx for UTI to prevent re-infection (6) Chronic a-fib Status: Chronic Problem Text: On eliquis (7) DM2 (diabetes mellitus, type 2) Status: Chronic (8) Neurogenic bladder Status: Chronic (9) H/O recurrent urinary tract infection Status: Chronic Plan/VTE VTE Prophylaxis Ordered?: Yes (Eliquis) Plan/Urinary Catheter Urinary Catheter: Other Catheter: (patient has chronic suprapubic catheter) Reason for insertion/continuin: Other-document below (patient has neurogenic bladder) Plan IVF: Initiate Diet: Continue Current Activity: Encourage Ambulation Therapy: PT, OT Medications: Start Antibiotics Diagnostics: Repeat Labs in AM VS, I&O, 24H, Fishbone Vital Signs/I&O Vital Signs Date Time Temp Pulse Resp B/P (MAP) Pulse Ox O2 Delivery O2 Flow Rate FiO2 03/19/19 06:00 99.0 77 18 102/51 (68) 95 03/13/19 16:07 Room Air I&O- Last 24 Hours up to 6 AM 03/19/19 06:00 Intake Total 1450 ml Output Total 2150 ml Balance -700 ml Laboratory Data Microbiology Microbiology 03/15/19 Gastrointestinal Tract Panel (PCR) - Final, Complete Katarina Langford CAR OILER Mar 19, 2019 09:58 PARDEEP CHAN DO Mar 19, 2019 23:34
[2019-03-19] MEDS: ACETAMINOPHEN TAB 650MG DOSE (2X325MG) PO PRN ×2 (10:18→22:01)
[2019-03-19 10:44] LABS: BASO # 0.1 10^3/uL (0.0-0.2); BASO % 0.3 % (0.0-1.0); EOS # 0.4 10^3/uL (0.0-0.50); EOS % 2.1 % (0.0-3.0); HEMATOCRIT 33.4 % (42.0-52.0); HEMOGLOBIN 11.1 g/dl (13.5-17.5); LYMPH % 11.4 % (24.0-44.0); MEAN CORPUSCULAR HEMOGLOBIN 28.7 pg (27.0-33.0); MEAN CORPUSCULAR HGB CONC 33.2 g/dl (32.0-36.5); MEAN CORPUSCULAR VOLUME 86.3 fl (80.0-96.0); MONO # 1.3 10^3/uL (0.0-0.8); MONO % 7.5 % (0.0-5.0); NEUTROPHILS # 13.7 10^3/uL (1.8-7.7); NEUTROPHILS % 78.1 % (36.0-66.0); PLATELET COUNT, AUTOMATED 221 10^3/uL (150-450); RED BLOOD COUNT 3.87 10^6/uL (4.30-6.10); WHITE BLOOD COUNT 17.6 10^3/uL (4.0-10.0)
[2019-03-19] MEDS ORDERED: VARIBAR PUDDING 40% w/v 230ML TUBE As Ordered ONE (10:57)
[2019-03-19] MEDS ORDERED: VARIBAR NECTAR 40% w/v 240ML SUSP BTL As Ordered ONE (10:57)
[2019-03-19] MEDS ORDERED: E-Z-PAQUE 96% w/w SUSP 176GM BTL As Ordered ONE (10:57)
[2019-03-19 11:05] LABS: CALCIUM LEVEL 9.7 MG/DL (8.8-10.2); CREATININE FOR GFR 1.3 MG/DL (0.70-1.30); GLOMERULAR FILTRATION RATE 57.6 (>42)
--- NOTE | 2019-03-19 13:13 | REP ---
CHEST, TWO VIEWS: Two views of the chest are performed and compared to prior study of 03/13/2019. There is new patchy infiltrate in the left lower lobe. The right lung is clear. Heart and mediastinum are unchanged. There is a left single-lead pacemaker again noted. IMPRESSION: Left lower lobe infiltrate. Electronically Signed by John Santa MD 03/19/2019 02:07 P
--- NOTE | 2019-03-19 14:02 | NUR ---
Pt seen for modified barium swallow study d/t frequent but inconsistent regurgitation of solids. Pt presents with mild pharyngeal phase dysphagia as characterized by: pooling/stasis of bolus in the valleculae causing regurgitation of residue. Recommend: Regular solids (cut small with extra sauces/gravy/condiments) and regular thin liquids. Alternate solids and liquids frequently throughout meal. Use chin tuck for liquids to clear pharynx. Addendum: 03/19/19 at 1404 by SELENA GARSIA [facility] Amended: Links added.
[2019-03-19 14:39] VITALS: BP 139/73
--- NOTE | 2019-03-19 15:01 | REP ---
Examination Requested: Cookie Swallow Reason For Exam: Dysphasia The procedure was performed by DAYO Hines, under the direct supervision of Dr. Lin. The procedure was performed with Reba Moses from speech pathology present. 5 ml aliquots of thin, pudding, mixed fruit, soft food, honey, hard food and nectar consistency barium was administered. No penetration or aspiration was visualized throughout the course of the exam. The detailed report of this examination will be provided by speech pathology. 2.3 minutes of fluoroscopy time was utilized for this procedure. Reviewed by DAYO Paz 03/19/2019 02:09 P Electronically Signed by John Lin MD 03/19/2019 02:53 P
[2019-03-19] MEDS: cefTRIAXone SOD 1 GM in D5W MINI-BAG PLUS 50 ML IV SCH (15:42)
[2019-03-19] MEDS: LevoFLOXacin 750 MG TABLET PO SCH (18:36)
[2019-03-19] MEDS: ONDANSETRON 4MG/2ML VIAL (J2405) IV PRN (20:11)
[2019-03-19] MEDS: SOLIFENACIN 5 MG TAB PO SCH (20:32)
[2019-03-19 20:36] VITALS: BP 138/71
[2019-03-19] MEDS: CEFEPIME HCL 2 GM in D5W MINI-BAG PLUS 50 ML IV SCH (20:56)
[2019-03-19 22:00] VITALS: BP 138/71
[2019-03-20] MEDS: CEFEPIME HCL 2 GM in D5W MINI-BAG PLUS 50 ML IV SCH ×3 (03:32→20:07)
[2019-03-20] MEDS: VANCOMYCIN ORAL SOL 250MG/5ML ORAL SYRINGE PO SCH ×5 (05:40→23:05)
[2019-03-20 06:00] VITALS: BP 117/53
[2019-03-20 06:10] LABS: BASO # 0.1 10^3/uL (0.0-0.2); BASO % 0.3 % (0.0-1.0); EOS # 0.1 10^3/uL (0.0-0.50); EOS % 0.8 % (0.0-3.0); HEMATOCRIT 31.8 % (42.0-52.0); HEMOGLOBIN 10.6 g/dl (13.5-17.5); LYMPH # 1.7 10^3/uL (1.5-4.5); LYMPH % 10.8 % (24.0-44.0); MEAN CORPUSCULAR HEMOGLOBIN 27.7 pg (27.0-33.0); MEAN CORPUSCULAR HGB CONC 33.3 g/dl (32.0-36.5); MONO % 6.3 % (0.0-5.0); NEUTROPHILS # 12.7 10^3/uL (1.8-7.7); NEUTROPHILS % 81.4 % (36.0-66.0); PLATELET COUNT, AUTOMATED 242 10^3/uL (150-450); RED BLOOD COUNT 3.83 10^6/uL (4.30-6.10); WHITE BLOOD COUNT 15.6 10^3/uL (4.0-10.0)
[2019-03-20 06:38] LABS: CALCIUM LEVEL 9.4 MG/DL (8.8-10.2); CREATININE FOR GFR 1.27 MG/DL (0.70-1.30); GLOMERULAR FILTRATION RATE 59.2 (>42); POTASSIUM SERUM 4.3 MEQ/L (3.5-5.1)
[2019-03-20] MEDS: LEVEMIR (INSULIN DETEMIR) 1 UNITS/0.01ML SC SCH ×2 (08:07→20:13)
[2019-03-20] MEDS: HumaLOG INSULIN (NovoLOG) PER UNIT SC SCH ×4 (08:08→20:13)
[2019-03-20] MEDS: GABAPENTIN 300 MG CAP PO SCH ×3 (08:11→20:08)
[2019-03-20] MEDS: FENOFIBRATE 145 MG TAB (TRICOR) PO SCH (08:12)
[2019-03-20] MEDS: APIXABAN 5 MG TAB (ELIQUIS) PO SCH ×2 (08:13→20:08)
[2019-03-20] MEDS: FUROSEMIDE 40 MG TAB PO SCH (08:14)
[2019-03-20] MEDS: MAGNESIUM OXIDE 400 MG TAB (MAG-OX) PO SCH ×2 (08:14→20:08)
[2019-03-20] MEDS: PANTOPRAZOLE 40MG TAB (PROTONIX) PO SCH (08:15)
[2019-03-20] MEDS: SPIRONOLACTONE 12.5MG PER 1/2 TABLET PO SCH (08:15)
[2019-03-20] MEDS: ATORVASTATIN 20 MG TAB PO SCH (08:16)
[2019-03-20] MEDS: BACLOFEN 10 MG TAB PO SCH ×3 (08:16→20:08)
--- NOTE | 2019-03-20 08:22 | IPNPDOC ---
Subjective Date Seen The patient was seen on 03/20/19. Subjective Chief Complaint/HPI vomited yesterday. No BM x 3 days. Denies Abd pain. No n/v today. Denies SOB or cough. Pulmonary: Denies: Dyspnea, Cough Cardiovascular: Denies: Chest Pain, Palpitations Gastrointestinal: Reports: Constipation; Denies: Nausea, Vomiting, Abdominal Pain, Diarrhea Objective Physical Examination General Exam: Positive: Alert, No Acute Distress ENT Exam: Positive: Mucous membr. moist/pink Neck Exam: Positive: Supple; Negative: JVD, thyromegaly, +2 carotid pulse wo bruit, Lymphadenopathy, Other Chest Exam: Positive: Clear to auscultation, Normal air movement; Negative: Rales, Rhonchi, Wheezing Heart Exam: Positive: Rate Normal, Regular Rhythm Abdomen Exam: Positive: Normal bowel sounds, Soft, Tenderness (mild generalized tenderness), Other (suprapubic catheter site is intact with yellow urine and no leakage currently) Extremity Exam: Positive: Other (patient does have notable joint deformity, especially to his feet consistent with Charcot. There is also an element of arthritis. 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 ), Mood NL Assessment /Plan Problems (1) Hospital-acquired pneumonia Status: Acute Problem Text: 03/20 =- CXR 03/19 showed LLL infiltrate new c/w 03/13 CXR done on admission. Abx switched to Cefepime and Levaquin - WBC & Temp trending down B/C pending (2) UTI (urinary tract infection) due to urinary indwelling catheter Status: Acute Problem Text: 03/20 - switched to Cefepime & Levaquin yesterday when CXR showed LLL infiltrate. D# 8 Cefalosporin for UTI with U/C growing E. Coli on 03/12 in ER. Probably could stop his Cefalosporin. Await B/C. 03/19/19: today is day #7 for Rocephin. Patient is febrile. CBC, BMP, blood cultures ordered. Tylenol prn fever. E. Coli noted in UCS from 03/12 with sensiti vity to Ceftriaxone. CXR to r/o pneumonia. 03/18: Rocephin day 6 03/17: Rocephin D#5 03/16 - Rocephin D#4 - Urology recommended Vaseline gauze and has suggested pulling catheter balloon tight against bladder wall to prevent leakage for periods of time, but should not keep it there for extended periods of time so as to prevent bladder wall erosion I will continue IV abx today and then could switch to po Kelex tomorrow Goal for patient is to go home on tuesday morning to attend his daughter's 50th B-day alliance party If he is not safe from PT standpoint at that time, we could make SNF for ST rehab if PFS agrees to this and he could leave Tuesday for alliance party and return for rehab after alliance party 03/15 Rocephin D3, MS has improved, Uro has seen and made adjustments to cath to prevent leakage. 03/14 U/C 03/12 grew E.Coli resistant to Levaquin Now on Rocephin Suprapubic catheter changed recently due to leakage of urine, but continues to leak and developing breakdown around catheter Will consult Urology (3) H/O Clostridium difficile infection Problem Text: 03/20 - GI panel negative Cont Vanco for prevention while on Abx 03/15 No BM since admission. 03/14 Recently completed tx for C. Diff - Having diarrhea again - Recheck Gi panel and start Vanco emperically for possible recurrent C. Diff - Even if Gi panel neg, would tx with Vanco while on Abx for UTI to prevent re-infection (4) Altered mental status Status: Acute Response to Treatment: Improving Problem Specific Plan: Consult Specialist (Dr. Forman) Problem Text: 03/19 seems essentially normal today. Reviewed Dr. Forman's note and appreciate his input. He is taking lioresal, a med capable of causing changes in mental alertness so will reduce dose to 10mg daily. Noted at 0800 to be less alert, appeared to have right sided weakness, speech was difficult for him, gradually resolving by [address] done, per radiology no change. Patient on eliquis and no definite start time for the event so thrombolytics not indicated. May be candidate for addition of antiplatelet agent. (5) CKD (chronic kidney disease) Status: Chronic Response to Treatment: Stable Problem Text: 03/19/2019: sodium normalized on 03/19. Appears well compensated. Spironolactone and Lasix held on admission - Restart Lasix due to hyponatremia - likely from excessive po fluid intake. renal fx - Back to baseline after IVF (6) Acute metabolic encephalopathy Status: Resolved Response to Treatment: Improving Problem Text: Secondary to UTI (7) Chronic a-fib Status: Chronic Problem Text: On eliquis (8) DM2 (diabetes mellitus, type 2) Status: Chronic Problem Text: On SSI coverage but no fingerstick blood sugars documented - discussed with charge nurse - monitor trends (9) Neurogenic bladder Status: Chronic (10) H/O recurrent urinary tract infection Status: Chronic (11) Constipation Status: Acute Problem Text: Add bowel care - give supp today Plan/VTE VTE Prophylaxis Ordered?: Yes (Eliquis) Plan/Urinary Catheter Urinary Catheter: Other Catheter: (patient has chronic suprapubic catheter) Reason for insertion/continuin: Other-document below (patient has neurogenic bladder) Plan IVF: Initiate Diet: Continue Current Activity: Encourage Ambulation Therapy: PT, OT Medications: Start Antibiotics Diagnostics: Repeat Labs in AM [facility]position [facility] Vital Signs/I&O Vital Signs Date Time Temp Pulse Resp B/P (MAP) Pulse Ox O2 Delivery O2 Flow Rate FiO2 03/20/19 06:00 97.9 81 16 117/53 (74) 98 I&O- Last 24 Hours up to 6 AM 03/20/19 06:00 Intake Total 1130 ml Output Total 1450 ml Balance -320 ml Laboratory Data 24H LABS Laboratory Tests 2 03/19/19 10:12: Immature Granulocyte % (Auto) 0.6, White Blood Count 17.6H, Red Blood Count 3.87L, Hemoglobin 11.1L, Hematocrit 33.4L, Mean Corpuscular Volume 86.3, Mean Corpuscular Hemoglobin 28.7, Mean Corpuscular Hemoglobin Concent 33.2, Red Cell Distribution Width 13.8, Platelet Count 221, Neutrophils (%) (Auto) 78.1H, Lymphocytes (%) (Auto) 11.4L, Monocytes (%) (Auto) 7.5H, Eosinophils (%) (Auto) 2.1, Basophils (%) (Auto) 0.3, Neutrophils # (Auto) 13.7H, Lymphocytes # (Auto) 2.0, Monocytes # (Auto) 1.3H, Eosinophils # (Auto) 0.4, Basophils # (Auto) 0.1, Nucleated Red Blood Cells % (auto) 0.0, Anion Gap 7L, Glomerular Filtration Rate 57.6, Blood Urea Nitrogen 19H, Creatinine 1.30, Sodium Level 136, Potassium Level 4.0, Chloride Level 99, Carbon Dioxide Level 30, Calcium Level 9.7 03/20/19 05:33: Immature Granulocyte % (Auto) 0.4, White Blood Count 15.6H, Red Blood Count 3.83L, Hemoglobin 10.6L, Hematocrit 31.8L, Mean Corpuscular Volume 83.0, Mean Corpuscular Hemoglobin 27.7, Mean Corpuscular Hemoglobin Concent 33.3, Red Cell Distribution Width 13.5, Platelet Count 242, Neutrophils (%) (Auto) 81.4H, Lymphocytes (%) (Auto) 10.8L, Monocytes (%) (Auto) 6.3H, Eosinophils (%) (Auto) 0.8, Basophils (%) (Auto) 0.3, Neutrophils # (Auto) 12.7H, Lymphocytes # (Auto) 1.7, Monocytes # (Auto) 1.0H, Eosinophils # (Auto) 0.1, Basophils # (Auto) 0.1, Nucleated Red Blood Cells % (auto) 0.0, Anion Gap 5L, Glomerular Filtration Rate 59.2, Blood Urea Nitrogen 19H, Creatinine 1.27, Sodium Level 133L, Potassium Level 4.3, Chloride Level 95L, Carbon Dioxide Level 33H, Calcium Level 9.4 CBC/BMP Laboratory Tests 03/19/19 10:12 Red Blood Count 3.87 L, Mean Corpuscular Volume 86.3, Mean Corpuscular Hemoglobin 28.7, Mean Corpuscular Hemoglobin Concent 33.2, Red Cell Distribution Width 13.8, Neutrophils (%) (Auto) 78.1 H, Lymphocytes (%) (Auto) 11.4 L, Monocytes (%) (Auto) 7.5 H, Eosinophils (%) (Auto) 2.1, Basophils (%) (Auto) 0.3, Neutrophils # (Auto) 13.7 H, Lymphocytes # (Auto) 2.0, Monocytes # (Auto) 1.3 H, Eosinophils # (Auto) 0.4, Basophils # (Auto) 0.1, Calcium Level 9.7 03/20/19 05:33 Red Blood Count 3.83 L, Mean Corpuscular Volume 83.0, Mean Corpuscular Hemoglobin 27.7, Mean Corpuscular Hemoglobin Concent 33.3, Red Cell Distribution Width 13.5, Neutrophils (%) (Auto) 81.4 H, Lymphocytes (%) (Auto) 10.8 L, Monocytes (%) (Auto) 6.3 H, Eosinophils (%) (Auto) 0.8, Basophils (%) (Auto) 0.3, Neutrophils # (Auto) 12.7 H, Lymphocytes # (Auto) 1.7, Monocytes # (Auto) 1.0 H, Eosinophils # (Auto) 0.1, Basophils # (Auto) 0.1, Calcium Level 9.4 Microbiology Microbiology 03/19/19 Blood Culture, Received Pending 03/19/19 Blood Culture, Received Pending 03/15/19 Gastrointestinal Tract Panel (PCR) - Final, Complete BYRON COLEY PA-C Mar 20, 2019 08:22
[2019-03-20] MEDS ORDERED: BISACODYL 10 MG SUPP PR ONE (09:00)
[2019-03-20 10:00] VITALS: BP 134/78
[2019-03-20] MEDS: DOCUSATE SODIUM 100 MG CAP PO SCH ×2 (10:33→20:08)
[2019-03-20] MEDS: ONDANSETRON 4MG/2ML VIAL (J2405) IV PRN (11:40)
[2019-03-20 14:00] VITALS: BP 129/66
[2019-03-20 18:00] VITALS: BP 108/48
[2019-03-20] MEDS: SOLIFENACIN 5 MG TAB PO SCH (20:08)
[2019-03-20] MEDS: ACETAMINOPHEN TAB 650MG DOSE (2X325MG) PO PRN (20:09)
[2019-03-20 22:00] VITALS: BP 122/63
[2019-03-21 02:00] VITALS: BP 126/64
[2019-03-21] MEDS: CEFEPIME HCL 2 GM in D5W MINI-BAG PLUS 50 ML IV SCH ×3 (03:10→19:54)
[2019-03-21] MEDS: VANCOMYCIN ORAL SOL 250MG/5ML ORAL SYRINGE PO SCH ×4 (05:29→23:00)
[2019-03-21 06:00] VITALS: BP 132/71
[2019-03-21 07:08] LABS: BASO % 0.4 % (0.0-1.0); EOS # 0.3 10^3/uL (0.0-0.50); EOS % 2.8 % (0.0-3.0); HEMATOCRIT 29.5 % (42.0-52.0); HEMOGLOBIN 9.8 g/dl (13.5-17.5); LYMPH # 2.2 10^3/uL (1.5-4.5); LYMPH % 21.8 % (24.0-44.0); MEAN CORPUSCULAR HGB CONC 33.2 g/dl (32.0-36.5); MEAN CORPUSCULAR VOLUME 84.3 fl (80.0-96.0); MONO # 0.8 10^3/uL (0.0-0.8); MONO % 8.2 % (0.0-5.0); NEUTROPHILS # 6.6 10^3/uL (1.8-7.7); NEUTROPHILS % 66.4 % (36.0-66.0); PLATELET COUNT, AUTOMATED 222 10^3/uL (150-450)
[2019-03-21 07:25] LABS: BLOOD UREA NITROGEN 20 MG/DL (7-18); CALCIUM LEVEL 9.3 MG/DL (8.8-10.2); CARBON DIOXIDE LEVEL 33 MEQ/L (21-32); CHLORIDE LEVEL 96 MEQ/L (98-107); CREATININE FOR GFR 1.21 MG/DL (0.70-1.30); GLOMERULAR FILTRATION RATE > 60.0 (>42); GLUCOSE, FASTING 159 MG/DL (70-100); POTASSIUM SERUM 4.1 MEQ/L (3.5-5.1); SODIUM LEVEL 132 MEQ/L (136-145)
[2019-03-21] MEDS: ATORVASTATIN 20 MG TAB PO SCH (08:17)
[2019-03-21] MEDS: PANTOPRAZOLE 40MG TAB (PROTONIX) PO SCH (08:17)
[2019-03-21] MEDS: GABAPENTIN 300 MG CAP PO SCH ×3 (08:17→19:55)
[2019-03-21] MEDS: FUROSEMIDE 40 MG TAB PO SCH (08:17)
[2019-03-21] MEDS: FENOFIBRATE 145 MG TAB (TRICOR) PO SCH (08:17)
[2019-03-21] MEDS: DOCUSATE SODIUM 100 MG CAP PO SCH ×3 (08:17→19:54)
[2019-03-21] MEDS: BACLOFEN 10 MG TAB PO SCH ×3 (08:17→19:55)
[2019-03-21] MEDS: SPIRONOLACTONE 12.5MG PER 1/2 TABLET PO SCH (08:17)
[2019-03-21] MEDS: MAGNESIUM OXIDE 400 MG TAB (MAG-OX) PO SCH ×2 (08:17→19:55)
[2019-03-21] MEDS: APIXABAN 5 MG TAB (ELIQUIS) PO SCH ×2 (08:17→20:01)
[2019-03-21] MEDS: LEVEMIR (INSULIN DETEMIR) 1 UNITS/0.01ML SC SCH ×2 (08:18→19:56)
[2019-03-21] MEDS: HumaLOG INSULIN (NovoLOG) PER UNIT SC SCH ×4 (08:18→20:02)
--- NOTE | 2019-03-21 08:58 | IPNPDOC ---
Subjective Date Seen The patient was seen on 03/21/19. Subjective Chief Complaint/HPI Feels well. No SOB or cough. + BM yesterday. Pulmonary: Denies: Dyspnea, Cough Cardiovascular: Denies: Chest Pain, Palpitations Gastrointestinal: Denies: Nausea, Vomiting, Abdominal Pain, Diarrhea, Constipation Objective Physical Examination General Exam: Positive: Alert, No Acute Distress ENT Exam: Positive: Mucous membr. moist/pink Neck Exam: Positive: Supple; Negative: JVD, thyromegaly, +2 carotid pulse wo bruit, Lymphadenopathy, Other Chest Exam: Positive: Clear to auscultation, Normal air movement; Negative: Rales, Rhonchi, Wheezing Heart Exam: Positive: Rate Normal, Regular Rhythm Abdomen Exam: Positive: Normal bowel sounds, Soft, Other (suprapubic catheter site is intact with yellow urine and no leakage currently); Negative: Tenderness Extremity Exam: Positive: Other (patient does have notable joint deformity, especially to his feet consistent with Charcot. There is also an element of arthritis. 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 ), Mood NL Assessment /Plan Problems (1) Hospital-acquired pneumonia Status: Acute Problem Text: 03/21 - D#3 Cefepime and Levaquin. Afebrile, WBC normalized. Resp status stble. May be able to switch to po abx in am 03/20 =- CXR 03/19 showed LLL infiltrate new c/w 03/13 CXR done on admission. Abx switched to Cefepime and Levaquin - WBC & Temp trending down B/C pending (2) UTI (urinary tract infection) due to urinary indwelling catheter Status: Acute Problem Text: 03/20 - switched to Cefepime & Levaquin yesterday when CXR showed LLL infiltrate. D# 8 Cefalosporin for UTI with U/C growing E. Coli on 03/12 in ER. Probably could stop his Cefalosporin. Await B/C. 03/19/19: today is day #7 for Rocephin. Patient is febrile. CBC, BMP, blood cultures ordered. Tylenol prn fever. E. Coli noted in UCS from 03/12 with sensitivity to Ceftriaxone. CXR to r/o pneumonia. 03/18: Rocephin day 6 03/17: Rocephin D#5 03/16 - Rocephin D#4 - Urology recommended Vaseline gauze and has suggested pulling catheter balloon tight against bladder wall to prevent leakage for periods of time, but should not keep it there for extended periods of time so as to prevent bladder wall erosion I will continue IV abx today and then could switch to po Kelex tomorrow Goal for patient is to go home on tuesday morning to attend his daughter's 50-day alliance party If he is not safe from PT standpoint at that time, we could make SNF for ST rehab if PFS agrees to this and he could leave Tuesday for alliance party and return for rehab after alliance party 03/15 Rocephin D3, MS has improved, Uro has seen and made adjustments to cath to prevent leakage. 03/14 U/C 03/12 grew E.Coli resistant to Levaquin Now on Rocephin Suprapubic catheter changed recently due to leakage of urine, but continues to leak and developing breakdown around catheter Will consult Urology (3) H/O Clostridium difficile infection Problem Text: 03/20 - GI panel negative Cont Vanco for prevention while on Abx 03/15 No BM since admission. 03/14 Recently completed tx for C. Diff - Having diarrhea again - Recheck Gi panel and start Vanco emperically for possible recurrent C. Diff - Even if Gi panel neg, would tx with Vanco while on Abx for UTI to prevent re-infection (4) Altered mental status Status: Acute Response to Treatment: Improving Problem Specific Plan: Consult Specialist (Dr. Forman) Problem Text: 03/19 seems essentially normal today. Reviewed Dr. Forman's note and appreciate his input. He is taking lioresal, a med capable of causing changes in mental alertness so will reduce dose to 10mg daily. Noted at 0800 to be less alert, appeared to have right sided weakness, speech wa s difficult for him, gradually resolving by [address] done, per radiology no change. Patient on eliquis and no definite start time for the event so thrombolytics not indicated. May be candidate for addition of antiplatelet agent. (5) CKD (chronic kidney disease) Status: Chronic Response to Treatment: Stable Problem Text: 03/19/2019: sodium normalized on 03/19. Appears well compensated. Spironolactone and Lasix held on admission - Restart Lasix due to hyponatremia - likely from excessive po fluid intake. renal fx - Back to baseline after IVF (6) Acute metabolic encephalopathy Status: Resolved Response to Treatment: Improving Problem Text: Secondary to UTI (7) Chronic a-fib Status: Chronic Problem Text: On eliquis (8) DM2 (diabetes mellitus, type 2) Status: Chronic Problem Text: On SSI coverage but no fingerstick blood sugars documented - discussed with charge nurse - monitor trends (9) Neurogenic bladder Status: Chronic (10) H/O recurrent urinary tract infection Status: Chronic (11) Constipation Status: Acute Problem Text: Add bowel care - give supp today Plan/VTE VTE Prophylaxis Ordered?: Yes (Eliquis) Plan/Urinary Catheter Urinary Catheter: Other Catheter: (patient has chronic suprapubic catheter) Reason for insertion/continuin: Other-document below (patient has neurogenic bladder) Plan IVF: Initiate Diet: Continue Current Activity: Encourage Ambulation Therapy: PT, OT Medications: Start Antibiotics Diagnostics: Repeat Labs in AM Disposition Cont PT/OT VS, I&O, 24H, [facility] Vital Signs/I&O Vital Signs Date Time Temp Pulse Resp B/P (MAP) Pulse Ox O2 Delivery O2 Flow Rate FiO2 03/21/19 06:00 97.5 65 16 132/71 (91) 95 I&O- Last 24 Hours up to 6 AM 03/21/19 06:00 Intake Total 1650 ml Output Total 1300 ml Balance 350 ml Laboratory Data 24H LABS Laboratory Tests 2 03/21/19 06:11: Immature Granulocyte % (Auto) 0.4, White Blood Count 10.0, Red Blood Count 3.50L, Hemoglobin 9.8L, Hematocrit 29.5L, Mean Corpuscular Volume 84.3, Mean Corpuscular Hemoglobin 28.0, Mean Corpuscular Hemoglobin Concent 33.2, Red Cell Distribution Width 13.4, Platelet Count 222, Neutrophils (%) (Auto) 66.4H, Lymphocytes (%) (Auto) 21.8L, Monocytes (%) (Auto) 8.2H, Eosinophils (%) (Auto) 2.8, Basophils (%) (Auto) 0.4, Neutrophils # (Auto) 6.6, Lymphocytes # (Auto) 2.2, Monocytes # (Auto) 0.8, Eosinophils # (Auto) 0.3, Basophils # (Auto) 0.0, Nucleated Red Blood Cells % (auto) 0.0, Anion Gap 3L, Glomerular Filtration Rate > 60.0, Blood Urea Nitrogen 20H, Creatinine 1.21, Sodium Level 132L, Potassium L evel 4.1, Chloride Level 96L, Carbon Dioxide Level 33H, Calcium Level 9.3 CBC/BMP Laboratory Tests 03/21/19 06:11 Red Blood Count 3.50 L, Mean Corpuscular Volume 84.3, Mean Corpuscular Hemoglobin 28.0, Mean Corpuscular Hemoglobin Concent 33.2, Red Cell Distribution Width 13.4, Neutrophils (%) (Auto) 66.4 H, Lymphocytes (%) (Auto) 21.8 L, Monocytes (%) (Auto) 8.2 H, Eosinophils (%) (Auto) 2.8, Basophils (%) (Auto) 0.4, Neutrophils # (Auto) 6.6, Lymphocytes # (Auto) 2.2, Monocytes # (Auto) 0.8, Eosinophils # (Auto) 0.3, Basophils # (Auto) 0.0, Calcium Level 9.3 Microbiology Microbiology 03/19/19 Blood Culture - Preliminary, Resulted No growth after 24 hours . All specim... 03/19/19 Blood Culture - Preliminary, Resulted No growth after 24 hours . All specim... 03/15/19 Gastrointestinal Tract Panel (PCR) - Final, Complete BYRON COLEY PA-C Mar 21, 2019 08:58
[2019-03-21] MEDS: BISACODYL 10 MG SUPP PR PRN (09:40)
[2019-03-21 10:00] VITALS: BP 123/68
[2019-03-21 14:00] VITALS: BP 120/66
[2019-03-21] MEDS: LevoFLOXacin 750 MG TABLET PO SCH (16:59)
[2019-03-21 18:00] VITALS: BP 104/61
[2019-03-21] MEDS: SOLIFENACIN 5 MG TAB PO SCH (19:55)
[2019-03-21] MEDS: ACETAMINOPHEN TAB 650MG DOSE (2X325MG) PO PRN (19:56)
[2019-03-21 22:00] VITALS: BP 100/50
[2019-03-22] MEDS: CEFEPIME HCL 2 GM in D5W MINI-BAG PLUS 50 ML IV SCH (03:09)
[2019-03-22] MEDS: VANCOMYCIN ORAL SOL 250MG/5ML ORAL SYRINGE PO SCH ×4 (05:40→23:54)
[2019-03-22 06:00] VITALS: BP 96/53
[2019-03-22 06:47] LABS: BASO # 0.1 10^3/uL (0.0-0.2); BASO % 0.7 % (0.0-1.0); EOS # 0.3 10^3/uL (0.0-0.50); EOS % 3.6 % (0.0-3.0); HEMATOCRIT 30.3 % (42.0-52.0); HEMOGLOBIN 9.9 g/dl (13.5-17.5); LYMPH # 1.8 10^3/uL (1.5-4.5); LYMPH % 22.1 % (24.0-44.0); MEAN CORPUSCULAR HEMOGLOBIN 28.4 pg (27.0-33.0); MEAN CORPUSCULAR HGB CONC 32.7 g/dl (32.0-36.5); MEAN CORPUSCULAR VOLUME 86.8 fl (80.0-96.0); MONO # 0.7 10^3/uL (0.0-0.8); MONO % 8.2 % (0.0-5.0); NEUTROPHILS # 5.4 10^3/uL (1.8-7.7); NEUTROPHILS % 64.8 % (36.0-66.0); PLATELET COUNT, AUTOMATED 219 10^3/uL (150-450); RED BLOOD COUNT 3.49 10^6/uL (4.30-6.10); WHITE BLOOD COUNT 8.3 10^3/uL (4.0-10.0)
[2019-03-22 07:21] LABS: CALCIUM LEVEL 9.2 MG/DL (8.8-10.2); CREATININE FOR GFR 1.36 MG/DL (0.70-1.30); GLOMERULAR FILTRATION RATE 54.7 (>42); POTASSIUM SERUM 4.4 MEQ/L (3.5-5.1)
--- NOTE | 2019-03-22 07:33 | IPNPDOC ---
Subjective Date Seen The patient was seen on 03/22/19. Subjective Chief Complaint/HPI No complaints Constitutional: Denies: Chills, Fever Pulmonary: Denies: Dyspnea, Cough Cardiovascular: Denies: Chest Pain, Palpitations, Orthopnea Gastrointestinal: Denies: Nausea, Vomiting, Abdominal Pain, Diarrhea, Constipation (chronic) Objective Physical Examination General Exam: Positive: Alert, No Acute Distress ENT Exam: Positive: Mucous membr. moist/pink Neck Exam: Positive: Supple; Negative: JVD, thyromegaly, +2 carotid pulse wo bruit, Lymphadenopathy, Other Chest Exam: Positive: Clear to auscultation, Normal air movement; Negative: Rales, Rhonchi, Wheezing Heart Exam: Positive: Rate Normal, Regular Rhythm Abdomen Exam: Positive: Normal bowel sounds, Soft, Other (suprapubic catheter site is intact with yellow urine and no leakage currently); Negative: Tenderness Extremity Exam: Positive: Other (patient does have notable joint deformity, especially to his feet consistent with Charcot. There is also an element of arthritis. 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 ), Mood NL Assessment /Plan Problems (1) Hospital-acquired pneumonia Status: Acute Problem Text: 03/22- D#4 Cefepime and Levaquin. Afebrile, WBC normalized. Resp status stable. Stop Cefepime today. Probably sharmila make SNF in am if stable 03/20 =- CXR 03/19 showed LLL infiltrate new c/w 03/13 CXR done on admission. Abx switched to Cefepime and Levaquin - WBC & Temp trending down B/C pending (2) UTI (urinary tract infection) due to urinary indwelling catheter Status: Acute Problem Text: 03/20 - switched to Cefepime & Levaquin yesterday when CXR showed LLL infiltrate. D# 8 Cefalosporin for UTI with U/C growing E. Coli on 03/12 in ER. Probably could stop his Cefalosporin. Await B/C. 03/19/19: today is day #7 for Rocephin. Patient is febrile. CBC, BMP, blood cultures ordered. Tylenol prn fever. E. Coli noted in UCS from 03/12 with sensitivity to Ceftriaxone. CXR to r/o pneumonia. 03/18: Rocephin day 6 03/17: Rocephin D#5 03/16 - Rocephin D#4 - Urology recommended Vaseline gauze and has suggested pulling catheter balloon tight against bladder wall to prevent leakage for periods of time, but should not keep it there for extended periods of time so as to prevent bladder wall erosion I will continue IV abx today and then could switch to po Kelex tomorrow Goal for patient is to go home on tuesday morning to attend his daughter's 50th B-day alliance party If he is not safe from PT standpoint at that time, we could make SNF for ST rehab if PFS agrees to this and he could leave Tuesday for alliance party and return for rehab after alliance party 03/15 Rocephin D3, MS has improved, Uro has seen and made adjustments to cath to prevent leakage. 03/14 U/C 03/12 grew E.Coli resistant to Levaquin Now on Rocephin Suprapubic catheter changed recently due to leakage of urine, but continues to leak and developing breakdown around catheter Will consult Urology (3) H/O Clostridium difficile infection Problem Text: 03/20 - GI panel negative Cont Vanco for prevention while on Abx 03/15 No BM since admission. 03/14 Recently completed tx for C. Diff - Having diarrhea again - Recheck Gi panel and start Vanco emperically for possible recurrent C. Diff - Even if Gi panel neg, would tx with Vanco while on Abx for UTI to prevent re-infection (4) Altered mental status Status: Acute Response to Treatment: Improving Problem Specific Plan: Consult Specialist (Dr. Forman) Problem Text: 03/19 seems essentially normal today. Reviewed Dr. Forman's note and appreciate his input. He is taking lioresal, a med capable of causing changes in mental alertness so will reduce dose to 10mg daily. Noted at 0800 to be less alert, appeared to have right sided weakness, speech was difficult for him, gradually resolving by [address] done, per radiology no change. Patient on eliquis and no definite start time for the event so thrombolytics not indicated. May be candidate for addition of antiplatelet agent. (5) CKD (chronic kidney disease) Status: Chronic Response to Treatment: Stable Problem Text: 03/19/2019: sodium normalized on 03/19. Appears well compensated. Spironolactone and Lasix held on admission - Restart Lasix due to hyponatremia - likely from excessive po fluid intake. renal fx - Back to baseline after IVF (6) Acute metabolic encephalopathy Status: Resolved Response to Treatment: Improving Problem Text: Secondary to UTI (7) Chronic a-fib Status: Chronic Problem Text: On eliquis (8) DM2 (diabetes mellitus, type 2) Status: Chronic Problem Text: On SSI coverage but no fingerstick blood sugars documented - discussed with charge nurse - monitor trends (9) Neurogenic bladder Status: Chronic (10) H/O recurrent urinary tract infection Status: Chronic (11) Constipation Status: Acute Problem Text: Add bowel care - give supp today Plan/VTE VTE Prophylaxis Ordered?: Yes (Eliquis) Plan/Urinary Catheter Urinary Catheter: Other Catheter: (patient has chronic suprapubic catheter) Reason for insertion/continuin: Other-document below (patient has neurogenic bladder) Plan IVF: Initiate Diet: Continue Current Activity: Encourage Ambulation Therapy: PT, OT Medications: Start Antibiotics Diagnostics: Repeat Labs in AM VS, I&O, 24H, [facility] Vital Signs/I&O Vital Signs Date Time Temp Pulse Resp B/P (MAP) Pulse Ox O2 Delivery O2 Flow Rate FiO2 03/22/19 06:00 97.2 88 16 96/53 (67) 95 I&O- Last 24 Hours up to 6 AM 03/22/19 06:00 Intake Total 1850 ml Output Total 1950 ml Balance -100 ml Laboratory Data 24H LABS Laboratory Tests 2 03/22/19 06:30: Immature Granulocyte % (Auto) 0.6, White Blood Count 8.3, Red Blood Count 3.49L, Hemoglobin 9.9L, Hematocrit 30.3L, Mean Corpuscular Volume 86.8, Mean Corpuscular Hemoglobin 28.4, Mean Corpuscular Hemoglobin Concent 32.7, Red Cell Distribution Width 13.3, Platelet Count 219, Neutrophils (%) (Auto) 64.8, Lymphocytes (%) (Auto) 22.1L, Monocytes (%) (Auto) 8.2H, Eosinophils (%) (Auto) 3.6H, Basophils (%) (Auto) 0.7, Neutrophils # (Auto) 5.4, Lymphocytes # (Auto) 1.8, Monocytes # (Auto) 0.7, Eosinophils # (Auto) 0.3, Basophils # (Auto) 0.1, Nucleated Red Blood Cells % (auto) 0.0, Anion Gap 3L, Glomerular Filtration Rate 54.7, Blood Urea Nitrogen 24H, Creatinine 1.36H, Sodium Level 133L, Potassium Level 4.4, Chloride Level 95L, Carbon Dioxide Level 35H, Calcium Level 9.2 CBC/BMP Laboratory Tests 03/22/19 06:30 Red Blood Count 3.49 L, Mean Corpuscular Volume 86.8, Mean Corpuscular Hemoglobin 28.4, Mean Corpuscular Hemoglobin Concent 32.7, Red Cell Distribution Width 13.3, Neutrophils (%) (Auto) 64.8, Lymphocytes (%) (Auto) 22.1 L, Monocytes (%) (Auto) 8.2 H, Eosinophils (%) (Auto) 3.6 H, Basophils (%) (Auto) 0.7, Neutrophils # (Auto) 5.4, Lymphocytes # (Auto) 1.8, Monocytes # (Auto) 0.7, Eosinophils # (Auto) 0.3, Basophils # (Auto) 0.1, Calcium Level 9.2 Microbiology Microbiology 03/19/19 Blood Culture - Preliminary, Resulted No Growth after 48 hours. All Specime... 03/19/19 Blood Culture - Preliminary, Resulted No Growth after 48 hours. All Specime... 03/15/19 Gastrointestinal Tract Panel (PCR) - Final, Complete BYRON COLEY PA-C Mar 22, 2019 07:33
[2019-03-22] MEDS: LEVEMIR (INSULIN DETEMIR) 1 UNITS/0.01ML SC SCH ×2 (08:42→20:01)
[2019-03-22] MEDS: HumaLOG INSULIN (NovoLOG) PER UNIT SC SCH ×4 (08:42→20:02)
[2019-03-22] MEDS: PANTOPRAZOLE 40MG TAB (PROTONIX) PO SCH (08:43)
[2019-03-22] MEDS: SPIRONOLACTONE 12.5MG PER 1/2 TABLET PO SCH ×2 (08:43→08:48)
[2019-03-22] MEDS: MAGNESIUM OXIDE 400 MG TAB (MAG-OX) PO SCH ×2 (08:43→20:02)
[2019-03-22] MEDS: FENOFIBRATE 145 MG TAB (TRICOR) PO SCH (08:44)
[2019-03-22] MEDS: APIXABAN 5 MG TAB (ELIQUIS) PO SCH ×2 (08:44→20:01)
[2019-03-22] MEDS: BACLOFEN 10 MG TAB PO SCH ×3 (08:44→20:01)
[2019-03-22] MEDS: FUROSEMIDE 40 MG TAB PO SCH (08:45)
[2019-03-22] MEDS: GABAPENTIN 300 MG CAP PO SCH ×3 (08:45→20:01)
[2019-03-22] MEDS: DOCUSATE SODIUM 100 MG CAP PO SCH ×2 (08:46→20:02)
[2019-03-22] MEDS: ATORVASTATIN 20 MG TAB PO SCH (08:46)
[2019-03-22 11:19] VITALS: BP 117/73
[2019-03-22 14:00] VITALS: BP 95/65
[2019-03-22] MEDS: BISACODYL 10 MG SUPP PR PRN (15:08)
[2019-03-22] MEDS: SOLIFENACIN 5 MG TAB PO SCH (20:01)
[2019-03-22 22:00] VITALS: BP 121/68
[2019-03-22] MEDS: ACETAMINOPHEN TAB 650MG DOSE (2X325MG) PO PRN (23:54)
[2019-03-23 02:00] VITALS: BP 124/72
[2019-03-23 05:42] LABS: BASO % 0.4 % (0.0-1.0); EOS # 0.4 10^3/uL (0.0-0.50); EOS % 3.2 % (0.0-3.0); HEMATOCRIT 29.1 % (42.0-52.0); HEMOGLOBIN 9.7 g/dl (13.5-17.5); LYMPH # 2.1 10^3/uL (1.5-4.5); LYMPH % 19.1 % (24.0-44.0); MEAN CORPUSCULAR HEMOGLOBIN 27.7 pg (27.0-33.0); MEAN CORPUSCULAR HGB CONC 33.3 g/dl (32.0-36.5); MEAN CORPUSCULAR VOLUME 83.1 fl (80.0-96.0); MONO # 0.9 10^3/uL (0.0-0.8); MONO % 8.1 % (0.0-5.0); NEUTROPHILS # 7.6 10^3/uL (1.8-7.7); NEUTROPHILS % 68.8 % (36.0-66.0); PLATELET COUNT, AUTOMATED 233 10^3/uL (150-450); WHITE BLOOD COUNT 11.1 10^3/uL (4.0-10.0)
[2019-03-23] MEDS: VANCOMYCIN ORAL SOL 250MG/5ML ORAL SYRINGE PO SCH ×3 (05:44→16:54)
[2019-03-23 06:00] VITALS: BP 98/49
[2019-03-23 06:06] LABS: CALCIUM LEVEL 9.6 MG/DL (8.8-10.2); CREATININE FOR GFR 1.44 MG/DL (0.70-1.30); GLOMERULAR FILTRATION RATE 51.2 (>42); POTASSIUM SERUM 4.4 MEQ/L (3.5-5.1)
[2019-03-23] MEDS: HumaLOG INSULIN (NovoLOG) PER UNIT SC SCH ×4 (08:08→20:11)
[2019-03-23] MEDS: SPIRONOLACTONE 12.5MG PER 1/2 TABLET PO SCH (08:08)
[2019-03-23] MEDS: ATORVASTATIN 20 MG TAB PO SCH (08:08)
[2019-03-23] MEDS: FENOFIBRATE 145 MG TAB (TRICOR) PO SCH (08:08)
[2019-03-23] MEDS: APIXABAN 5 MG TAB (ELIQUIS) PO SCH ×2 (08:09→20:10)
[2019-03-23] MEDS: PANTOPRAZOLE 40MG TAB (PROTONIX) PO SCH (08:09)
[2019-03-23] MEDS: GABAPENTIN 300 MG CAP PO SCH ×3 (08:09→20:10)
[2019-03-23] MEDS: BACLOFEN 10 MG TAB PO SCH ×3 (08:09→20:10)
[2019-03-23] MEDS: FUROSEMIDE 40 MG TAB PO SCH (08:09)
[2019-03-23] MEDS: LEVEMIR (INSULIN DETEMIR) 1 UNITS/0.01ML SC SCH ×2 (08:10→20:10)
[2019-03-23] MEDS: DOCUSATE SODIUM 100 MG CAP PO SCH ×2 (08:10→20:10)
[2019-03-23] MEDS: MAGNESIUM OXIDE 400 MG TAB (MAG-OX) PO SCH ×2 (08:10→20:09)
[2019-03-23 10:00] VITALS: BP 115/59
--- NOTE | 2019-03-23 10:02 | IPNPDOC ---
Subjective Date Seen The patient was seen on 03/23/19. Subjective Chief Complaint/HPI no complaints - feels well Constitutional: Reports: Fever (temp 99 this am); Denies: Chills Pulmonary: Denies: Dyspnea, Cough Cardiovascular: Denies: Chest Pain, Palpitations Gastrointestinal: Denies: Nausea, Vomiting, Abdominal Pain, Diarrhea, Constipation Objective Physical Examination General Exam: Positive: Alert, No Acute Distress ENT Exam: Positive: Mucous membr. moist/pink Neck Exam: Positive: Supple; Negative: JVD, thyromegaly, +2 carotid pulse wo bruit, Lymphadenopathy, Other Chest Exam: Positive: Clear to auscultation, Normal air movement; Negative: Rales, Rhonchi, Wheezing Heart Exam: Positive: Rate Normal, Regular Rhythm Abdomen Exam: Positive: Normal bowel sounds, Soft, Other (suprapubic catheter site is intact with yellow urine and no leakage currently); Negative: Tenderness Extremity Exam: Positive: Other (patient does have notable joint deformity, especially to his feet consistent with Charcot. There is also an element of arthritis. 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 ), Mood NL Assessment /Plan Problems (1) Hospital-acquired pneumonia Status: Acute Problem Text: 03/23 - switched to po Levaquin alone yesterday, but this am vitals show temp 99, WBC up again and BP low. Restart Cefepime and cont Levaquin Hold Lasix and Spironolactone and monitor BP 03/22- D#4 Cefepime and Levaquin. Afebrile, WBC normalized. Resp status stable. Stop Cefepime today. Probably sharmila make SNF in am if stable 03/20 =- CXR 03/19 showed LLL infiltrate new c/w 03/13 CXR done on admission. Abx switched to Cefepime and Levaquin - WBC & Temp trending down B/C pending (2) UTI (urinary tract infection) due to urinary indwelling catheter Status: Acute Problem Text: 03/23 - see above 03/20 - switched to Cefepime & Levaquin yesterday when CXR showed LLL infiltrate. D# 8 Cefalosporin for UTI with U/C growing E. Coli on 03/12 in ER. Probably could stop his Cefalosporin. Await B/C. 03/19/19: today is day #7 for Rocephin. Patient is febrile. CBC, BMP, blood cultures ordered. Tylenol prn fever. E. Coli noted in UCS from 03/12 with sensitivity to Ceftriaxone. CXR to r/o pneumonia. 03/18: Rocephin day 6 03/17: Rocephin D#5 03/16 - Rocephin D#4 - Urology recommended Vaseline gauze and has suggested pulling catheter balloon tight against bladder wall to prevent leakage for periods of time, but should not keep it there for extended periods of time so as to prevent bladder wall erosion I will continue IV abx today and then could switch to po Kelex tomorrow Goal for patient is to go home on tuesday morning to attend his daughter's 50th -day constitution party If he is not safe from PT standpoint at that time, we could make SNF for ST rehab if PFS agrees to this and he could leave Tuesday for constitution party and return for rehab after constitution party 03/15 Rocephin D3, MS has improved, Uro has seen and made adjustments to cath to prevent leakage. 03/14 U/C 03/12 grew E.Coli resistant to Levaquin Now on Rocephin Suprapubic catheter changed recently due to leakage of urine, but continues to leak and developing breakdown around catheter Will consult Urology (3) H/O Clostridium difficile infection Problem Text: 03/23 - on po vanco for prevention while on abx - no diarrhea03/20 - GI panel negative Cont Vanco for prevention while on Abx 03/15 No BM since admission. 03/14 Recently completed tx for C. Diff - Having diarrhea again - Recheck Gi panel and start Vanco emperically for possible recurrent C. Diff - Even if Gi panel neg, would tx with Vanco while on Abx for UTI to prevent re-infection (4) Altered mental status Status: Acute Response to Treatment: Improving Problem Specific Plan: Consult Specialist (Dr. Forman) Problem Text: 03/19 seems essentially normal today. Reviewed Dr. Forman's note and appreciate his input. He is taking lioresal, a med capable of causing changes in mental alertness so will reduce dose to 10mg daily. Noted at 0800 to be less alert, appeared to have right sided weakness, speech was difficult for him, gradually resolving by [address], per radiology no change. Patient on eliquis and no definite start time for the event so thrombolytics not indicated. May be candidate for addition of antiplatelet agent. (5) CKD (chronic kidney disease) Status: Chronic Response to Treatment: Stable Problem Text: 03/19/2019: sodium normalized on 03/19. Appears well compensated. Spironolactone and Lasix held on admission - Restart Lasix due to hyponatremia - likely from excessive po fluid intake. renal fx - Back to baseline after IVF (6) Acute metabolic encephalopathy Status: Resolved Response to Treatment: Improving Problem Text: Secondary to UTI (7) Chronic a-fib Status: Chronic Problem Text: On eliquis (8) DM2 (diabetes mellitus, type 2) Status: Chronic Problem Text: On SSI coverage but no fingerstick blood sugars documented - discussed with charge nurse - monitor trends (9) Neurogenic bladder Status: Chronic (10) H/O recurrent urinary tract infection Status: Chronic (11) Constipation Status: Acute Problem Text: Add bowel care - give supp today Plan/VTE VTE Prophylaxis Ordered?: Yes (Eliquis) Plan/Urinary Catheter Urinary Catheter: Other Catheter: (patient has chronic suprapubic catheter) Reason for insertion/continuin: Other-document below (patient has neurogenic bladder) Plan IVF: Initiate Diet: Continue Current Activity: Encourage Ambulation Therapy: PT, OT Medications: Start Antibiotics Diagnostics: Repeat Labs in AM Disposition Not safe to go home - needs rehab COnt PT. restarting IV abx so remains acute for now VS, I&O, 24H, [facility] Vital Signs/I&O Vital Signs Date Time Temp Pulse Resp B/P (MAP) Pulse Ox O2 Delivery O2 Flow Rate FiO2 03/23/19 06:00 99.2 81 17 98/49 (65) 97 I&O- Last 24 Hours up to 6 AM 03/23/19 05:59 Intake Total 920 ml Output Total 1500 ml Balance -580 ml Laboratory Data 24H LABS Laboratory Tests 2 03/23/19 05:21: Immature Granulocyte % (Auto) 0.4, White Blood Count 11.1H, Red Blood Count 3.50L, Hemoglobin 9.7L, Hematocrit 29.1L, Mean Corpuscular Volume 83.1, Mean Corpuscular Hemoglobin 27.7, Mean Corpuscular Hemoglobin Concent 33.3, Red Cell Distribution Width 13.3, Platelet Count 233, Neutrophils (%) (Auto) 68.8H, Lymphocytes (%) (Auto) 19.1L, Monocytes (%) (Auto) 8.1H, Eosinophils (%) (Auto) 3.2H, Basophils (%) (Auto) 0.4, Neutrophils # (Auto) 7.6, Lymphocytes # (Auto) 2.1, Monocytes # (Auto) 0.9H, Eosinophils # (Auto) 0.4, Basophils # (Auto) 0.0, Nucleated Red Blood Cells % (auto) 0.0, Anion Gap 4L, Glomerular Filtration Rate 51.2, Blood Urea Nitrogen 22H, Creatinine 1.44H, Sodium Level 131L, Potassium Level 4.4, Chloride Level 93L, Carbon Dioxide Level 34H, Calcium Level 9.6 CBC/BMP Laboratory Tests 03/23/19 05:21 Red Blood Count 3.50 L, Mean Corpuscular Volume 83.1, Mean Corpuscular Hemoglobin 27.7, Mean Corpuscular Hemoglobin Concent 33.3, Red Cell Distribution Width 13.3, Neutrophils (%) (Auto) 68.8 H, Lymphocytes (%) (Auto) 19.1 L, Mo nocytes (%) (Auto) 8.1 H, Eosinophils (%) (Auto) 3.2 H, Basophils (%) (Auto) 0.4, Neutrophils # (Auto) 7.6, Lymphocytes # (Auto) 2.1, Monocytes # (Auto) 0.9 H, Eosinophils # (Auto) 0.4, Basophils # (Auto) 0.0, Calcium Level 9.6 Microbiology Microbiology 03/19/19 Blood Culture - Preliminary, Resulted No Growth after 72 hours. All specime... 03/19/19 Blood Culture - Preliminary, Resulted No Growth after 72 hours. All specime... 03/15/19 Gastrointestinal Tract Panel (PCR) - Final, Complete BYRON COLEY PA-C Mar 23, 2019 10:02
[2019-03-23] MEDS: CEFEPIME HCL 2 GM in D5W MINI-BAG PLUS 50 ML IV SCH (12:58)
[2019-03-23 14:00] VITALS: BP 123/62
[2019-03-23] MEDS: ACETAMINOPHEN TAB 650MG DOSE (2X325MG) PO PRN (14:16)
[2019-03-23] MEDS: LevoFLOXacin 750 MG TABLET PO SCH (16:54)
[2019-03-23 18:00] VITALS: BP 121/58
[2019-03-23] MEDS: SOLIFENACIN 5 MG TAB PO SCH (20:09)
[2019-03-23 22:00] VITALS: BP 123/62
[2019-03-24] MEDS: CEFEPIME HCL 2 GM in D5W MINI-BAG PLUS 50 ML IV SCH ×2 (00:16→13:53)
[2019-03-24] MEDS: VANCOMYCIN ORAL SOL 250MG/5ML ORAL SYRINGE PO SCH ×4 (00:16→18:01)
[2019-03-24] MEDS: ONDANSETRON 4MG/2ML VIAL (J2405) IV PRN ×2 (00:16→06:52)
[2019-03-24 02:00] VITALS: BP 119/65
[2019-03-24 06:00] VITALS: BP 118/64
[2019-03-24 06:12] LABS: BASO % 0.3 % (0.0-1.0); EOS # 0.2 10^3/uL (0.0-0.50); EOS % 1.5 % (0.0-3.0); HEMOGLOBIN 10.3 g/dl (13.5-17.5); LYMPH # 1.8 10^3/uL (1.5-4.5); LYMPH % 13.2 % (24.0-44.0); MEAN CORPUSCULAR HEMOGLOBIN 28.5 pg (27.0-33.0); MEAN CORPUSCULAR HGB CONC 33.2 g/dl (32.0-36.5); MEAN CORPUSCULAR VOLUME 85.6 fl (80.0-96.0); MONO # 0.9 10^3/uL (0.0-0.8); MONO % 6.4 % (0.0-5.0); NEUTROPHILS # 10.4 10^3/uL (1.8-7.7); NEUTROPHILS % 78.1 % (36.0-66.0); PLATELET COUNT, AUTOMATED 261 10^3/uL (150-450); RED BLOOD COUNT 3.62 10^6/uL (4.30-6.10); WHITE BLOOD COUNT 13.3 10^3/uL (4.0-10.0)
[2019-03-24 06:27] LABS: CALCIUM LEVEL 9.3 MG/DL (8.8-10.2); CREATININE FOR GFR 1.48 MG/DL (0.70-1.30); GLOMERULAR FILTRATION RATE 49.6 (>42); POTASSIUM SERUM 4.3 MEQ/L (3.5-5.1)
[2019-03-24] MEDS: HumaLOG INSULIN (NovoLOG) PER UNIT SC SCH ×4 (07:30→20:51)
--- NOTE | 2019-03-24 08:18 | IPN ---
DATE: 03/24/2019 Calos is having distended abdomen. He worried that he has "another bowel obstruction". He has been vomiting and feels uncomfortable and restless. PHYSICAL EXAMINATION: Afebrile, blood pressure 188/64. Lungs clear. Heart regular rhythm. Abdomen soft, distended. Diffusely mildly tender. No costovertebral angle tenderness (CVA). LABS: White count is up to 13.3, hemoglobin 10.3. Sodium 127, BUN 22, creatinine 1.4. IMPRESSION: 1. Suspected bowel obstruction stat CT of abdomen and pelvis ordered. Followup based on this. 2. 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 Mental status is at baseline. 3. Hospital acquired pneumonia: He is on cefepime and Levaquin for this. 4. Urinary tract infection: Continue cefepime and Levaquin. 5. C difficile colitis: Continue his by mouth vancomycin for prevention along with antibiotics. 6. Chronic kidney disease: GFR is stable. 7. History of recurrent urinary tract infections. Treatment as above.
[2019-03-24 10:00] VITALS: BP 119/61
[2019-03-24] MEDS: DOCUSATE SODIUM 100 MG CAP PO SCH ×2 (10:09→20:49)
[2019-03-24] MEDS: LEVEMIR (INSULIN DETEMIR) 1 UNITS/0.01ML SC SCH ×2 (10:09→20:49)
[2019-03-24] MEDS: PANTOPRAZOLE 40MG TAB (PROTONIX) PO SCH (10:10)
[2019-03-24] MEDS: MAGNESIUM OXIDE 400 MG TAB (MAG-OX) PO SCH ×2 (10:10→20:48)
[2019-03-24] MEDS: GABAPENTIN 300 MG CAP PO SCH ×3 (10:10→20:48)
[2019-03-24] MEDS: ATORVASTATIN 20 MG TAB PO SCH (10:10)
[2019-03-24] MEDS: FENOFIBRATE 145 MG TAB (TRICOR) PO SCH (10:10)
[2019-03-24] MEDS: APIXABAN 5 MG TAB (ELIQUIS) PO SCH ×2 (10:10→20:48)
[2019-03-24] MEDS: BACLOFEN 10 MG TAB PO SCH ×3 (10:11→20:48)
--- NOTE | 2019-03-24 11:07 | REP ---
CT ABDOMEN AND PELVIS WITHOUT CONTRAST: CT abdomen and pelvis performed without oral or IV contrast. The study is somewhat limited due to patient motion and is also due to lack of IV contrast. In the visualized lung bases, there is a small left pleural effusion with adjacent left basilar atelectasis/infiltrate. Liver is grossly unremarkable. Gallbladder is distended and grossly unremarkable. Spleen, adrenals, pancreas and kidneys demonstrate no gross abnormality. There is no hydronephrosis bilaterally. There is mild atherosclerotic calcification of the abdominal aorta without aneurysm. IVC filter is noted. No adenopathy is seen. There is no free air or free fluid. Anterior abdominal wall mesh is again noted with a superficial crescentic fluid collection along the anterior surface of the mesh decreased the prior study of 10/27/2018 and likely representing a seroma. There is diffuse moderate small bowel dilatation as well as moderate dilatation of the stomach with a transition point in the caliber of the small bowel in the right mid abdomen with focal beaking of the more proximal small bowel loop. Findings are consistent with small bowel obstruction. Distal ileum is relatively normal in caliber. There is barium seen throughout the colon from a prior modified barium swallow. This was performed 03/19/2019. Suprapubic catheter is seen in the bladder. Metallic right hip prosthesis is noted. There are degenerative changes of the spine. IMPRESSION: Findings consistent with small bowl obstruction with a transition point in the right mid abdomen. No free air or free fluid. No fluid collection. There is a small left pleural effusion with adjacent left lower lobe atelectasis/infiltrate. Electronically Signed by John Santa MD 03/25/2019 09:20 P
--- NOTE | 2019-03-24 12:35 | IPN ---
DATE OF SERVICE: 03/24/2019 CT confirmed a small bowel obstruction. I have discussed the case with Dr. Harris. He will see the patient in consultation. I have orders for nasogastric tube suctioning, nothing by mouth status.
--- NOTE | 2019-03-24 13:38 | CR.PDOC ---
General Surgery Consultation Date of Consultation 03/24/19 History and Physical CONSULT REPORT FOR: eLo Schreiber M.D. (hospitalist service) REASON FOR CONSULTATION: Small bowel obstruction HISTORY OF PRESENT ILLNESS: Patient currently admitted in the hospital for UTI and antibiotics. Reportedly had one episode of vomiting yesterday and another one in early this morning. He is denying any abdominal crampy discomfort but felt nauseated early this morning. He felt better after throwing up. Review of the I&O's in the hospital shows he is having some bowel movements. He has a history of paraplegia, urinary retention for which he has a suprapubic catheter. He has had previous obstructions, multiple abdominal hernia surgeries with mesh. He reports he is normally constipated and he is receiving Dulcolax suppository as well as MiraLAX for his constipation. He is reporting some discomfort over the right lower quadrant area. Past medical history includes: 1. Essential Hypertension 2. Eyw-popijnb-akdsrmleg diabetes mellitus 3. Ankylosing spondylitis 4. BPH 5. Migraines 6. Reported congestive heart failure 7. Hyperlipidemia 8. Chronic atrial fibrillation for which he is on chronic anticoagulation with Eliquis, and has undergone ablation with pacemaker placement 9. Multiple prior urinary tract infection 10. History of multilevel disc disease for which he has undergone decompressive laminectomy 11. History of C. difficile colitis due to antibiotic therapy 12. LEEANN, does not use CPAP 13. 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 Neurogenic bladder 16.Postoperative spinal infection Surgical History Surgical history includes: 1. Left hemicolectomy 2. Right knee replacement 3. Right total hip replacement 5. Multiple hernia repair 6. Bladder biopsy in 2013 7. Supra pubic catheter placement 2013. 8. Thoracic decompressive laminectomy 9. Pacemaker placement ALLERGIES: Please see below. HOME MEDICATIONS: Please see below. REVIEW OF SYSTEMS: GENERAL: Patient admitted for symptoms of lethargy and confusion. He's been afebrile here in the hospital... CARDIOVASCULAR: Denies chest pain and palpitations. MUSCULOSKELETAL: Needs assistance with able to ambulate some with a walker. NEUROLOGIC: Patient with history of neurogenic bladder, ankylosing spondylitis, lower extremity weakness... HEMATOLOGY/ONCOLOGY: Patient on Eliquis for atrial fibrillation. HEART: Patient with Atrial fibrillation, has a pacemaker in place. Currently denying any chest pain or discomfort. PULMONARY: Denies chronic cough, dyspnea and wheezing. GASTROINTESTINAL: With history of constipation. Multiple abdominal surgeries and hernia repairs, prior history of bowel obstruction GENITOURINARY: He has a suprapubic catheter in place. ENDOCRINE: Denies polydipsia, polyphagia, polyuria, heat or cold intolerance. INFECTIOUS: History of recurrent UTIs. NUTRITION: Reports poor to fair appetite. PHYSICAL EXAMINATION: VITALS SIGNS: Please see below. GENERAL APPEARANCE: And overall looks comfortable. He is laying in bed. He is pleasant and cooperative. He appears awake, alert and oriented. SKIN: Warm and dry. HEENT: Normocephalic, atraumatic. Mild pale palpebral conjunctiva, anicteric sclerae. Lips appear mildly dry. NECK: Short subpulmonic. No obvious changes of venous distention. LUNGS: Clear to auscultation bilaterally. No wheezing appreciated. HEART: Regular rate and rhythm but the patient dropped beats. No murmurs appreciated. He has a pacemaker in place. ABDOMEN: Abdomen is moderately obese and round, soft, appears moderately distended and tympanitic to percussion. He has some specific tenderness seems to be more on the abdominal wall on the right lower quadrant area. This is associated with area of thickening below this can injure suspect is from the previous hernia repair. He has had a transverse incision from hernia repair here. He is had other incisions on the abdomen and all appears healed.. No hepatosplenomegaly. No umbilical or groin herniations, nondistended. No noticeable rebound or guarding. No grimacing with palpation. No rebound tenderness. No masses appreciated. EXTREMITIES: Extremities have no deformities. No edema identified ANCILLARIES: . LABORATORY DATA: Please see below. IMAGING STUDIES: . CT abdomen and pelvis, noncontrast Findings consistent with small bowl obstruction with a transition point in the right mid abdomen. No free air or free fluid. No fluid collection. There is a small left pleural effusion with adjacent left lower lobe atelectasis/infiltrate. IMPRESSION AND PLAN: Small bowel obstruction most likely related to adhesions from previous intra- abdominal surgeries Constipation possibly fecal impaction with the colon filled with his colon appearing to be full of barium laced stools (from esophagram 5 days ago) despite having regular bowel movements Patient is reluctant to have a nasogastric tube placed. Apparently at the bed experience with placement nasogastric tube and even the doctor who admitted him a few years ago was not able to pass this through which cause some bleeding. Currently he is not complaining of any nausea and has not vomited since the episode early this morning. I told him we will hold this off but if he keeps on vomiting we will put the nasogastric tube. Keep him nothing by mouth. I'll start him on some IV fluids area didn't give him a fleets enema given the amount of stool in the whole colon on CT scan. The fact that the bar in the track 5 days ago was able to pass through the area and now is in the colon tells me that this most likely the partial obstruction may be an element of ileus from his urinary tract infection. I also believe that he must have some neurogenic problems moving his bowels. He normally has been getting suppositories this may not be enough to fully move the bowels down. I will give him a dose of Water enema today and put him on fleets enema daily and observe his progress or lack thereof. Currently not having any abdominal crampy discomfort. He has some mild tenderness at the right of the umbilicus and the palpation where the transition point seems to be. This is also where the mesh is located from his most latest hernia repair done roughly 2 years ago. At this point does not need emergency surgery as there is no evidence or symptoms for threatened bowel. He reports previous bowel obstructions that seems to help resolve with nonoperative therapy since this is a reasonable course for now. Vital Signs Vital Signs Date Time Temp Pulse Resp B/P (MAP) Pulse Ox O2 Delivery O2 Flow Rate FiO2 03/24/19 10:00 98.9 83 18 119/61 (80) 93 I&Os I&O- Last 24 Hours up to 6 AM 03/24/19 06:00 Intake Total 1620 ml Output Total 1425 ml Balance 195 ml Laboratory Data Labs 24H Laboratory Tests 2 03/24/19 05:41: Immature Granulocyte % (Auto) 0.5, White Blood Count 13.3H, Red Blood Count 3.62L, Hemoglobin 10.3L, Hematocrit 31.0L, Mean Corpuscular Volume 85.6, Mean Corpuscular Hemoglobin 28.5, Mean Corpuscular Hemoglobin Concent 33.2, Red Cell Distribution Width 13.2, Platelet Count 261, Neutrophils (%) (Auto) 78.1H, Lymphocytes (%) (Auto) 13.2L, Monocytes (%) (Auto) 6.4H, Eosinophils (%) (Auto) 1.5, Basophils (%) (Auto) 0.3, Neutrophils # (Auto) 10.4H, Lymphocytes # (Auto) 1.8, Monocytes # (Auto) 0.9H, Eosinophils # (Auto) 0.2, Basophils # (Auto) 0.0, Nucleated Red Blood Cells % (auto) 0.0, Anion Gap 4L, Glomerular Filtration Rate 49.6, Blood Urea Nitrogen 22H, Creatinine 1.48H, Sodium Level 127L, Potassium Level 4.3, Chloride Level 92L, Carbon Dioxide Level 31, Calcium Level 9.3 CBC/BMP Laboratory Tests 03/24/19 05:41 Red Blood Count 3.62 L, Mean Corpuscular Volume 85.6, Mean Corpuscular Hemoglobin 28.5, Mean Corpuscular Hemoglobin Concent 33.2, Red Cell Distribution Width 13.2, Neutrophils (%) (Auto) 78.1 H, Lymphocytes (%) (Auto) 13.2 L, Monocytes (%) (Auto) 6.4 H, Eosinophils (%) (Auto) 1.5, Basophils (%) (Auto) 0.3, Neutrophils # (Auto) 10.4 H, Lymphocytes # (Auto) 1.8, Monocytes # (Auto) 0.9 H, Eosinophils # (Auto) 0.2, Basophils # (Auto) 0.0, Calcium Level 9.3 Microbiology Microbiology 03/19/19 Blood Culture - Final, Complete NO GROWTH AFTER 5 DAYS 03/19/19 Blood Culture - Final, Complete NO GROWTH AFTER 5 DAYS 03/15/19 Gastrointestinal Tract Panel (PCR) - Final, Complete Home Medications Scheduled Apixaban (Eliquis) 5 Mg Tab, 5 MG PO BID, (Reported) Atorvastatin Calcium (Atorvastatin Calcium) 40 Mg Tab, 40 MG PO DAILY, (Reported) Baclofen (Baclofen) 10 Mg Tablet, 10 MG PO TID Cefdinir (Cefdinir) 300 Mg Capsule, 300 MG PO BID Docusate Sodium (Colace) 100 Mg Capsule, 100 MG PO BID Ergocalciferol (Vitamin D2) (Drisdol) 50,000 Unit Capsule, 50,000 UNIT PO QWEEK, (Reported) SUNDAYS Fenofibrate Nanocrystallized (Fenofibrate) 145 Mg Tab, 145 MG PO DAILY, (Reported) Furosemide (Furosemide) 40 Mg Tablet, 40 MG PO DAILY, (Reported) Gabapentin (Gabapentin) 600 Mg Tab, 600 MG PO TID, (Reported) Insulin Glargine,Hum.rec.anlog (Lantus Solostar) 100 Unit/Ml Inj, 10 UNITS SC BID, (Reported) 20 in am 10 at night Insulin Human Lispro (Humalog) 1 Units/0.01 Ml Inj, 1 DOSE SC AC, (Reported) PER SLIDING SCALE L.acidoph/L.bulg/B.bif/S.therm (Bacid Caplet) 1 Tab Tab, 1 TAB PO BID, (Reported) Loratadine (Loratadine) 10 Mg Tab, 10 MG PO QHS, (Reported) Magnesium Oxide (Magnesium Oxide) 400 Mg Tab, 800 MG PO BID, (Reported) Pantoprazole Sodium (Pantoprazole Sodium) 40 Mg Tab, 40 MG PO DAILY, (Reported) Polyethylene Glycol 3350 (Polyethylene Glycol 3350) 17 Gm Powd.pack, 1 PKT PO DAILY Solifenacin Succinate (Vesicare) 10 Mg Tab, 10 MG PO QHS, (Reported) Spironolactone (Spironolactone) 25 Mg Tablet, 12.5 MG PO DAILY, (Reported) Vancomycin HCl (Firvanq) 50 Mg/1 Ml Soln.recon, 125 MG PO Q6H Scheduled PRN Bisacodyl (Bisacodyl) 10 Mg Sup, 10 MG WA DAILY PRN for CONSTIPATION, (Reported) Clotrimazole (Clotrimazole) 1 % Cre, 1 DOSE TOP BID PRN for RASH/ITCHING, (Reported) APPLY TO GROIN AREA Nitroglycerin (Nitrostat) 0.4 Mg Subl, 0.4 MG SL NITRO PRN for CHEST PAIN, (Reported) Nystatin (Nystatin Powder) 100,000 Unit/Gm Pow, 1 DOSE TOP BID PRN for RASH/ITCHING, (Reported) APPLY TO GROIN AREA Simethicone (Simethicone) 180 Mg Capsule, 180 MG PO QIDP PRN for GAS PAIN, (Reported) Allergies Coded Allergies: Sulfa (Sulfonamide Antibiotics) (Verified Allergy, Intermediate, hives, 12/20/18) alcohol (Verified Allergy, Intermediate, soap rash, 12/20/18) carisoprodol (Verified Allergy, Intermediate, hives, 12/20/18) gum mastic (Verified Allergy, Intermediate, soap rash, 12/20/18) purell mosture therapy latex (Verified Allergy, Intermediate, rash, 12/20/18) methyl salicylate (Verified Allergy, Intermediate, soap rash, 12/20/18) methylparaben (Verified Allergy, Intermediate, hives, 12/20/18) morphine (Verified Allergy, Intermediate, HIVES RASH AT SITE LIKELY HISTAMINE RELEASE, 12/20/18) storax (Verified Allergy, Intermediate, soap rash, 12/20/18) SOO Inhibitors (Verified Allergy, Unknown, 12/20/18) TAPE (Verified Allergy, Unknown, STERISTRIPS, 02/10/18) hydrochlorothiazide (Verified Allergy, Unknown, unsure of reaction, ) nitrofurantoin (Verified Adverse Reaction, Mild, diarrhea, 12/20/18) WENDY MARTIN MD Mar 24, 2019 13:38
[2019-03-24] MEDS: LR 1,000 ML IV SCH (13:53)
[2019-03-24] MEDS: FLEET ENEMA PR SCH (13:54)
[2019-03-24 14:00] VITALS: BP 112/54
[2019-03-24] MEDS: SOLIFENACIN 5 MG TAB PO SCH (20:51)
[2019-03-24 21:50] VITALS: BP 107/52
[2019-03-25] VITALS (8 sets, daily range): BP systolic 102–118; BP diastolic 46–56
[2019-03-25] MEDS: CEFEPIME HCL 2 GM in D5W MINI-BAG PLUS 50 ML IV SCH ×2 (00:10→12:14)
[2019-03-25] MEDS: VANCOMYCIN ORAL SOL 250MG/5ML ORAL SYRINGE PO SCH ×4 (00:10→18:09)
[2019-03-25] MEDS: LR 1,000 ML IV SCH (01:54)
[2019-03-25] MEDS: HumaLOG INSULIN (NovoLOG) PER UNIT SC SCH ×4 (07:30→21:00)
[2019-03-25 07:32] LABS: BASO # 0.1 10^3/uL (0.0-0.2); BASO % 0.6 % (0.0-1.0); EOS # 0.2 10^3/uL (0.0-0.50); EOS % 2.6 % (0.0-3.0); HEMOGLOBIN 9.7 g/dl (13.5-17.5); LYMPH # 2.1 10^3/uL (1.5-4.5); LYMPH % 24.1 % (24.0-44.0); MEAN CORPUSCULAR HEMOGLOBIN 28.5 pg (27.0-33.0); MEAN CORPUSCULAR HGB CONC 33.4 g/dl (32.0-36.5); MEAN CORPUSCULAR VOLUME 85.3 fl (80.0-96.0); MONO # 0.7 10^3/uL (0.0-0.8); MONO % 7.9 % (0.0-5.0); NEUTROPHILS # 5.5 10^3/uL (1.8-7.7); NEUTROPHILS % 64.2 % (36.0-66.0); PLATELET COUNT, AUTOMATED 211 10^3/uL (150-450); WHITE BLOOD COUNT 8.6 10^3/uL (4.0-10.0)
[2019-03-25 08:05] LABS: BLOOD UREA NITROGEN 22 MG/DL (7-18); CALCIUM LEVEL 9.3 MG/DL (8.8-10.2); CARBON DIOXIDE LEVEL 33 MEQ/L (21-32); CHLORIDE LEVEL 97 MEQ/L (98-107); CREATININE FOR GFR 1.16 MG/DL (0.70-1.30); GLOMERULAR FILTRATION RATE > 60.0 (>42); GLUCOSE, FASTING 67 MG/DL (70-100); POTASSIUM SERUM 4.1 MEQ/L (3.5-5.1); SODIUM LEVEL 134 MEQ/L (136-145)
[2019-03-25] MEDS: BACLOFEN 10 MG TAB PO SCH ×3 (08:29→21:09)
[2019-03-25] MEDS: ATORVASTATIN 20 MG TAB PO SCH (08:29)
[2019-03-25] MEDS: APIXABAN 5 MG TAB (ELIQUIS) PO SCH ×2 (08:29→21:10)
[2019-03-25] MEDS: PANTOPRAZOLE 40MG TAB (PROTONIX) PO SCH (08:29)
[2019-03-25] MEDS: DOCUSATE SODIUM 100 MG CAP PO SCH ×2 (08:29→21:10)
[2019-03-25] MEDS: FENOFIBRATE 145 MG TAB (TRICOR) PO SCH (08:29)
[2019-03-25] MEDS: GABAPENTIN 300 MG CAP PO SCH ×3 (08:29→21:10)
[2019-03-25] MEDS: MAGNESIUM OXIDE 400 MG TAB (MAG-OX) PO SCH ×2 (08:29→21:10)
[2019-03-25] MEDS: FLEET ENEMA PR SCH ×2 (09:00→10:55)
[2019-03-25] MEDS: KCL 10MEQ IN D5/0.45NS 1000ML 1,000 ML IV SCH ×2 (09:48→21:18)
[2019-03-25] MEDS: MIRALAX *UNIT DOSE* 17GM PACKET PO SCH (10:55)
--- NOTE | 2019-03-25 13:51 | IPN ---
DATE: 03/25/2019 Calos's bowel obstruction seems better. He was given aggressive bowel care by surgery. Had large volume stool and abdomen is less distended and he feels better. He is hypoglycemic this morning. We had to do hypoglycemia protocol. We are encountering a new problem monitoring diabetic patients in the hospital. Cachorro has a continuous glucose monitor and therefore, his blood sugars are not being recorded in the electronic medical record (EMR), so we cannot track these in the usual fashion. This will be brought to the attention of the quality care committee. PHYSICAL EXAMINATION: VITAL SIGNS: Stable. Afebrile. He is alert and conversant, is getting D50. LUNGS: Clear. HEART: Regular rate and rhythm. ABDOMEN: Soft, nondistended. Good bowel sounds. LABORATORIES: Sodium is up to 134. White count is normal. Hemoglobin overnight is 7. IMPRESSION: 1. Small bowel obstruction, probably from constipation. This is better with aggressive bowel care and he has not needed nasogastric suction. 2. Hypoglycemia. He is responding to the D50. I have changed intravenous (IV) fluid to D5 half normal saline with his potassium. Quality care committee needs to be make aware of the problem of the patients with continuous glucose monitor not having their blood sugars recorded in the EMR. 3. Hyponatremia. Improved from yesterday. 4. Hospital-acquired pneumonia. Continue cefepime and Levaquin. 5. Urinary tract infection. Continue cefepime and Levaquin. 6. Clostridium (C) difficile colitis. Continue vancomycin. 7. Chronic kidney disease. GFR is stable. When he is ready for discharge, he would probably be best served by short-term rehabilitation.
[2019-03-25] MEDS: LevoFLOXacin 750 MG TABLET PO SCH (18:08)
[2019-03-25] MEDS: SOLIFENACIN 5 MG TAB PO SCH (21:09)
[2019-03-25] MEDS: LEVEMIR (INSULIN DETEMIR) 1 UNITS/0.01ML SC SCH (21:11)
[2019-03-26] MEDS: VANCOMYCIN ORAL SOL 250MG/5ML ORAL SYRINGE PO SCH ×5 (00:43→23:48)
[2019-03-26] MEDS: CEFEPIME HCL 2 GM in D5W MINI-BAG PLUS 50 ML IV SCH ×3 (00:43→23:49)
[2019-03-26 06:19] LABS: BASO % 0.4 % (0.0-1.0); EOS # 0.2 10^3/uL (0.0-0.50); EOS % 2.1 % (0.0-3.0); HEMATOCRIT 28.1 % (42.0-52.0); HEMOGLOBIN 9.3 g/dl (13.5-17.5); LYMPH # 1.5 10^3/uL (1.5-4.5); LYMPH % 15.4 % (24.0-44.0); MEAN CORPUSCULAR HEMOGLOBIN 28.6 pg (27.0-33.0); MEAN CORPUSCULAR HGB CONC 33.1 g/dl (32.0-36.5); MEAN CORPUSCULAR VOLUME 86.5 fl (80.0-96.0); MONO # 0.8 10^3/uL (0.0-0.8); MONO % 7.9 % (0.0-5.0); NEUTROPHILS # 7.3 10^3/uL (1.8-7.7); NEUTROPHILS % 73.7 % (36.0-66.0); PLATELET COUNT, AUTOMATED 195 10^3/uL (150-450); RED BLOOD COUNT 3.25 10^6/uL (4.30-6.10); WHITE BLOOD COUNT 9.9 10^3/uL (4.0-10.0)
[2019-03-26 06:21] VITALS: BP 106/55
[2019-03-26 06:44] LABS: BLOOD UREA NITROGEN 19 MG/DL (7-18); CARBON DIOXIDE LEVEL 32 MEQ/L (21-32); CHLORIDE LEVEL 96 MEQ/L (98-107); CREATININE FOR GFR 1.08 MG/DL (0.70-1.30); GLOMERULAR FILTRATION RATE > 60.0 (>42); GLUCOSE, FASTING 182 MG/DL (70-100); POTASSIUM SERUM 4.5 MEQ/L (3.5-5.1); SODIUM LEVEL 132 MEQ/L (136-145)
[2019-03-26] MEDS: HumaLOG INSULIN (NovoLOG) PER UNIT SC SCH ×4 (08:43→21:00)
[2019-03-26] MEDS: LEVEMIR (INSULIN DETEMIR) 1 UNITS/0.01ML SC SCH ×2 (08:44→21:46)
[2019-03-26] MEDS: DOCUSATE SODIUM 100 MG CAP PO SCH ×2 (08:44→21:44)
[2019-03-26] MEDS: MAGNESIUM OXIDE 400 MG TAB (MAG-OX) PO SCH ×2 (08:44→21:45)
[2019-03-26] MEDS: BACLOFEN 10 MG TAB PO SCH ×3 (08:44→21:45)
[2019-03-26] MEDS: APIXABAN 5 MG TAB (ELIQUIS) PO SCH ×2 (08:44→21:45)
[2019-03-26] MEDS: MIRALAX *UNIT DOSE* 17GM PACKET PO SCH (08:44)
[2019-03-26] MEDS: GABAPENTIN 300 MG CAP PO SCH ×3 (08:45→21:45)
[2019-03-26] MEDS: PANTOPRAZOLE 40MG TAB (PROTONIX) PO SCH (08:45)
[2019-03-26] MEDS: FENOFIBRATE 145 MG TAB (TRICOR) PO SCH (08:45)
[2019-03-26] MEDS: ATORVASTATIN 20 MG TAB PO SCH (08:45)
[2019-03-26] MEDS: KCL 10MEQ IN D5/0.45NS 1000ML 1,000 ML IV SCH (08:46)
[2019-03-26] MEDS: FLEET ENEMA PR SCH (08:47)
--- NOTE | 2019-03-26 09:52 | REP ---
ABDOMINAL SERIES: Cross table lateral and supine films of the abdomen and pelvis are performed. No free air is seen. Once again, there are moderately dilated small bowel loops in the abdomen with air fluid levels on the cross table lateral views compatible with small bowel obstruction as seen on the CT scan of 03/24/2019. Once again, there is residual barium in the colon, also seen on that CT scan. IVC filter is noted. Metallic clips are seen in the left abdomen. An accompanying view of the chest again demonstrates left pleural effusion and basilar infiltrate. Electronically Signed by John Santa MD 03/27/2019 01:24 P
--- NOTE | 2019-03-26 10:23 | IPNPDOC ---
Subjective General Date/Time Seen The patient was seen on 03/26/19 at 10:21. Subject Chief Complaint/History Patient is followed up today for his bowel obstruction. He's had a good response to a more aggressive bowel regimen. Abdomen is soft. He still is complaining of some discomfort along the right lower quadrant area. He is denying any nausea. He's been tolerating clear liquids. Current Medications Current Medications Current Medications Acetaminophen (Tylenol Tab) 650 mg Q6H PRN PO PAIN OR FEVER Last administered on 03/23/19 14:16; Start 03/13/19 at 14:00 Apixaban (Eliquis) 5 mg BID PO Last administered on 03/26/19 08:44; Start 03/13/19 at 21:00 Atorvastatin Calcium (Lipitor) 40 mg DAILY PO Last administered on 03/26/19 08:45; Start 03/14/19 at 09:00 Baclofen (Lioresal) 10 mg TID PO Last administered on 03/26/19 08:44; Start 03/18/19 at 16:00 Baclofen (Lioresal) 20 mg TID PO Last administered on 03/18/19at 10:21; Start 03/13/19 at 16:00; Stop 03/18/19 at 12:14; Status DC Bisacodyl (Dulcolax Suppository) 10 mg DAILY PRN [place] CONSTIPATION Last administered on 03/22/19at 15:08; Start 03/13/19 at 14:00 Cefepime HCl 2 gm/ Dextrose 50 ml @ 100 mls/hr Q12H IV Last administered on 03/26/19at 00:43; Start 03/23/19 at 12:00 Cefepime HCl 2 gm/ Dextrose 50 ml @ 100 mls/hr Q8H IV Last administered on 03/22/19at 03:09; Start 03/19/19 at 20:00; Stop 03/22/19 at 07:32; Status DC Ceftriaxone Sodium 1 gm/ Dextrose 50 ml @ 100 mls/hr Q24H IV Last administered on 03/19/19at 15:42; Start 03/13/19 at 15:00; Stop 03/19/19 at 18:24; Status DC Clotrimazole (Lotrimin) 1 dose BID PRN TOP RASH/ITCHING; Start 03/13/19 at 14:00 Dextrose (Dextrose 50%) 25 ml ASDIRECTED PRN IV SEE LABEL COMMENTS Last administered on 03/25/19at 07:32; Start 03/13/19 at 14:00 Dextrose/Sodium Chloride 1,000 ml @ 60 mls/hr [id number] IV Last administered on 03/17/19at 10:46; Start 03/17/19 at 10:30; Stop 03/17/19 at 14:43; Status DC Docusate Sodium (Colace) 100 mg BID PO Last administered on 03/26/19at 08:44; Start 03/20/19 at 09:00 Fenofibrate (Tricor) 145 mg DAILY PO Last administered on 03/26/19 08:45; Start 03/14/19 at 09:00 Furosemide (Lasix) 40 mg DAILY PO Last administered on 03/23/19at 08:09; Start 03/16/19 at 09:00; Stop 03/23/19 at 10:25; Status DC Gabapentin (Neurontin) 600 mg TID PO Last administered on 03/26/19at 08:45; Start 03/13/19 at 21:00 Glucagon (Glucagon) 1 mg ASDIRECTED PRN SC SEE LABEL COMMENTS; Start 03/13/19 at 14:00 Glucose (Glucose) 16 GM ASDIRECTED PRN PO SEE LABEL COMMENTS; Start 03/13/19 at 14:00 Home Med (Med Rec Complete!) ASDIRECTED XX ; Start 03/13/19 at 13:30; Stop 03/13/19 at 13:30; Status DC Insulin Detemir (Levemir Insulin) 10 units BID SC Last administered on 03/26/19at 08:44; Start 03/13/19 at 21:00; Status Future hold Insulin Human Lispro (HumaLOG INSULIN) SEE PROTOCOL TABLE AC SC Last administered on 03/26/19 08:43; Start 03/13/19 at 17:30 Insulin Human Lispro (HumaLOG INSULIN) SEE PROTOCOL TABLE QHS SC Last a dministered on 03/21/19at 20:02; Start 03/13/19 at 21:00 Lactated Ringer's 1,000 ml @ 80 mls/hr [id number] IV Last administered on 03/25/19at 01:54; Start 03/24/19 at 12:45; Stop 03/25/19 at 07:58; Status DC Levofloxacin (Levaquin) 750 mg Q48H PO Last administered on 03/25/19at 18:08; Start 03/19/19 at 18:00 Magnesium Oxide (Mag-Ox) 800 mg BID PO Last administered on 03/26/19 08:44; Start 03/13/19 at 21:00 Nitroglycerin (Nitrostat (1/ 150)) 0.4 mg Q5MP PRN SL CHEST PAIN; Start 03/13/19 at 14:00 Nystatin (Mycostatin Powder, Nystop) 1 dose BID PRN TOP RASH/ITCHING; Start 03/13/19 at 14:00 Ondansetron HCl (ZOFRAN INJection) 4 mg Q6HP PRN IV NAUSEA OR VOMITING Last administered on 03/24/19 06:52; Start 03/13/19 at 14:15 Pantoprazole Sodium (Protonix) 40 mg DAILY PO Last administered on 03/26/19 08:45; Start 03/14/19 at 09:00 Polyethylene Glycol (Miralax) 1 pkt DAILY PO Last administered on 03/26/19 08:44; Start 03/25/19 at 09:00 Potassium Chloride/Dextrose/ Sod Cl 1,000 ml @ 80 mls/hr [id number] IV Last administered on 03/26/19 08:46; Start 03/25/19 at 09:00 Sodium Biphosphate/ Sodium Phosphate (Fleet Enema) 1 ea DAILY [place] Last administered on 03/26/19 08:47; Start 03/24/19 at 09:00 Sodium Chloride 1,000 ml @ 70 mls/hr [id number] IV Last administered on 03/14/19 04:33; Start 03/13/19 at 14:15; Stop 03/14/19 at 10:42; Status DC Sodium Chloride 1,000 ml @ 150 mls/hr [id number] IV Last administered on 03/13/19at 13:38; Start 03/13/19 at 12:57; Stop 03/13/19 at 15:00; Status DC Solifenacin (Vesicare) 10 mg QHS PO Last administered on 03/25/19at 21:09; Start 03/13/19 at 21:00 Spironolactone (Aldactone) 12.5 mg DAILY PO Last administered on 03/23/19at 08:08; Start 03/16/19 at 09:00; Stop 03/23/19 at 10:25; Status DC Vancomycin HCl (First-Vancomycin 50(Firvanq)- 250mg/5ml) 125 mg Q6H PO Last administered on 03/26/19at 06:51; Start 03/14/19 at 12:00 Allergies Coded Allergies: Sulfa (Sulfonamide Antibiotics) (Verified Allergy, Intermediate, hives, 12/20/18) alcohol (Verified Allergy, Intermediate, soap rash, 12/20/18) carisoprodol (Verified Allergy, Intermediate, hives, 12/20/18) gum mastic (Verified Allergy, Intermediate, soap rash, 12/20/18) purell mosture therapy latex (Verified Allergy, Intermediate, rash, 12/20/18) methyl salicylate (Verified Allergy, Intermediate, soap rash, 12/20/18) methylparaben (Verified Allergy, Intermediate, hives, 12/20/18) morphine (Verified Allergy, Intermediate, HIVES RASH AT SITE LIKELY HISTAMINE RELEASE, 12/20/18) storax (Verified Allergy, Intermediate, soap rash, 12/20/18) SOO Inhibitors (Verified Allergy, Unknown, 12/20/18) TAPE (Verified Allergy, Unknown, STERISTRIPS, 02/10/18) hydrochlorothiazide (Verified Allergy, Unknown, unsure of reaction, 12/20/18) nitrofurantoin (Verified Adverse Reaction, Mild, diarrhea, 12/20/18) Objective Physical Examination Examination GENERAL APPEARANCE: Patient seen sitting up on the chair. Looks comfortable. ABDOMEN: Abdomen is round, soft, only minimal leftover distention but certainly much better than a couple of days ago.. He still has some mild tenderness on palpation over the right lower quadrant area without any guarding which seems to be more tenderness from the abdominal wall then intraperitoneal. Vital Signs Vital Signs Date Time Temp Pulse Resp B/P (MAP) Pulse Ox O2 Delivery O2 Flow Rate FiO2 03/26/19 06:21 96.0 67 18 106/55 (72) 95 I&Os I&O- Last 24 Hours up to 6 AM 03/26/19 06:00 Intake Total 3260 ml Output Total 2250 ml Balance 1010 ml Laboratory Data Labs 24H Laboratory Tests 2 03/26/19 05:58: Immature Granulocyte % (Auto) 0.5, White Blood Count 9.9, Red Blood Count 3.25L, Hemoglobin 9.3L, Hematocrit 28.1L, Mean Corpuscular Volume 86.5, Mean Cor puscular Hemoglobin 28.6, Mean Corpuscular Hemoglobin Concent 33.1, Red Cell Distribution Width 13.2, Platelet Count 195, Neutrophils (%) (Auto) 73.7H, Lymphocytes (%) (Auto) 15.4L, Monocytes (%) (Auto) 7.9H, Eosinophils (%) (Auto) 2.1, Basophils (%) (Auto) 0.4, Neutrophils # (Auto) 7.3, Lymphocytes # (Auto) 1.5, Monocytes # (Auto) 0.8, Eosinophils # (Auto) 0.2, Basophils # (Auto) 0.0, Nucleated Red Blood Cells % (auto) 0.0, Anion Gap 4L, Glomerular Filtration Rate > 60.0, Blood Urea Nitrogen 19H, Creatinine 1.08, Sodium Level 132L, Potassium Level 4.5, Chloride Level 96L, Carbon Dioxide Level 32, Calcium Level 9.0 CBC/BMP Laboratory Tests 03/26/19 05:58 Red Blood Count 3.25 L, Mean Corpuscular Volume 86.5, Mean Corpuscular Hemoglobin 28.6, Mean Corpuscular Hemoglobin Concent 33.1, Red Cell Distribution Width 13.2, Neutrophils (%) (Auto) 73.7 H, Lymphocytes (%) (Auto) 15.4 L, Monocytes (%) (Auto) 7.9 H, Eosinophils (%) (Auto) 2.1, Basophils (%) (Auto) 0.4, Neutrophils # (Auto) 7.3, Lymphocytes # (Auto) 1.5, Monocytes # (Auto) 0.8, Eosinophils # (Auto) 0.2, Basophils # (Auto) 0.0, Calcium Level 9.0 Microbiology Microbiology 03/19/19 Blood Culture - Final, Complete NO GROWTH AFTER 5 DAYS 03/19/19 Blood Culture - Final, Complete NO GROWTH AFTER 5 DAYS Impression sbo constipation abdomen is soft but patient still complaining of tenderness over right lower quadrant,right paraumbilical area. Mildly distended abdomen. will check another kub today. if continues to be better will try solid foods, otherwise keep on clears for now. Plan / VTE VTE Prophylaxis Ordered?: Yes (Eliquis) Plan / Urinary Catheter Urinary Catheter: Other Catheter: (patient has chronic suprapubic catheter) Reason for insertion/continuin: Other-document below (patient has neurogenic bladder) WENDY MARTIN MD Mar 26, 2019 10:23
--- NOTE | 2019-03-26 13:41 | REP ---
REASON: Followup SBO. COMPARISON: Yesterday at 9 a.m. There is radiographic contrast material in the distal descending colon and sigmoid colon and in a fashion essentially unchanged from yesterday. There is no evidence of free intraperitoneal air. The Ann filter catheter is unchanged. Small bowel dilatation seen on the prior exam appears essentially unchanged. An exact comparison cannot be made since today's exam is a KUB and the prior exam is an abdominal series. There is no change in the osseous structures. IMPRESSION: No significant changes suspected with findings as described above. Electronically Signed by Nixon Pacheco DO 03/26/2019 02:37 P
[2019-03-26 14:57] VITALS: BP 110/53
--- NOTE | 2019-03-26 18:10 | IPNPDOC ---
Subjective Date Seen The patient was seen on 03/26/19. Subjective Chief Complaint/HPI improved abdominal pain Constitutional: Denies: Chills, Fever Eyes: Denies: Pain Skin: Denies: Rash Pulmonary: Denies: Dyspnea, Cough Cardiovascular: Denies: Chest Pain, Palpitations Objective Physical Examination General Exam: Positive: Alert, No Acute Distress ENT Exam: Positive: Mucous membr. moist/pink Neck Exam: Positive: Supple; Negative: JVD, thyromegaly, +2 carotid pulse wo bruit, Lymphadenopathy, Other Chest Exam: Positive: Clear to auscultation, Normal air movement; Negative: Rales, Rhonchi, Wheezing Heart Exam: Positive: Rate Normal, Regular Rhythm Abdomen Exam: Positive: Normal bowel sounds, Soft, Other (suprapubic catheter site is intact with yellow urine and no leakage currently); Negative: Tenderness Extremity Exam: Positive: Other (patient does have notable joint deformity, especially to his feet consistent with Charcot. There is also an element of arthritis. 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 ), Mood NL Assessment /Plan Problems (1) SBO (small bowel obstruction) Status: Acute Problem Text: minimal distension/pain remains on clears c 1/ NS 80H ho CC 2 neurogenic bowel 03/25 2 BMs on PG/FE/doc 100 BID 03/26 AXR s change cw 03/25 (2) Hospital-acquired pneumonia Status: Acute Problem Text: D4 cefipime / D8 levo 03/20 =- CXR 03/19 showed LLL infiltrate new c/w 03/13 CXR done on admission. Abx switched to Cefepime and Levaquin - WBC & Temp trending down B/C pending (3) UTI (urinary tract infection) due to urinary indwelling catheter Status: Acute Problem Text: 03/14/19 UCX E.Coli resistant to Levaquin Suprapubic catheter changed recently due to leakage of urine, but continues to leak and developing breakdown around catheter (4) H/O Clostridium difficile infection Problem Text: remains on vanco for C diff px no further diarrhea (5) Altered mental status Status: Acute Response to Treatment: Improving Problem Specific Plan: Consult Specialist (Dr. Forman) Problem Text: back to baseline MS-favor BELINDA (6) CKD (chronic kidney disease) Status: Chronic Response to Treatment: Stable Problem Text: at baseline cr 1.1-1.2 c stable Na/K (7) Acute metabolic encephalopathy Status: Resolved Response to Treatment: Improving Problem Text: Secondary to UTI (8) Chronic a-fib Status: Chronic Problem Text: On eliquis (9) DM2 (diabetes mellitus, type 2) Status: Chronic Problem Text: On SSI coverage but no fingerstick blood sugars documented - discussed with charge nurse - monitor trends (10) Constipation Status: Acute Problem Text: as per SBO Plan/VTE VTE Prophylaxis Ordered?: Yes (Eliquis) Plan/Urinary Catheter Urinary Catheter: Other Catheter: (patient has chronic suprapubic catheter) Reason for insertion/continuin: Other-document below (patient has neurogenic bladder) Plan IVF: Initiate Diet: Continue Current Activity: Encourage Ambulation Therapy: PT, OT Medications: Start Antibiotics Diagnostics: Repeat Labs in AM VS, I&O, 24H, Fishbone Vital Signs/I&O Vital Signs Date Time Temp Pulse Resp B/P (MAP) Pulse Ox O2 Delivery O2 Flow Rate FiO2 03/26/19 14:57 97.5 68 20 110/53 (72) 96 I&O- Last 24 Hours up to 6 AM 03/26/19 06:00 Intake Total 3260 ml Output Total 2250 ml Balance 1010 ml Laboratory Data 24H LABS Laboratory Tests 2 03/26/19 05:58: Immature Granulocyte % (Auto) 0.5, White Blood Count 9.9, Red Blood Count 3.25L, Hemoglobin 9.3L, Hematocrit 28.1L, Mean Corpuscular Volume 86.5, Mean Corpuscular Hemoglobin 28.6, Mean Corpuscular Hemoglobin Concent 33.1, Red Cell Distribution Width 13.2, Platelet Count 195, Neutrophils (%) (Auto) 73.7H, Lymphocytes (%) (Auto) 15.4L, Monocytes (%) (Auto) 7.9H, Eosinophils (%) (Auto) 2.1, Basophils (%) (Auto) 0.4, Neutrophils # (Auto) 7.3, Lymphocytes # (Auto) 1.5, Monocytes # (Auto) 0.8, Eosinophils # (Auto) 0.2, Basophils # (Auto) 0.0, Nucleated Red Blood Cells % (auto) 0.0, Anion Gap 4L, Glomerular Filtration Rate > 60.0, Blood Urea Nitrogen 19H, Creatinine 1.08, Sodium Level 132L, Potassium Level 4.5, Chloride Level 96L, Carbon Dioxide Level 32, Calcium Level 9.0 CBC/BMP Laboratory Tests 03/26/19 05:58 Red Blood Count 3.25 L, Mean Corpuscular Volume 86.5, Mean Corpuscular Hemoglobin 28.6, Mean Corpuscular Hemoglobin Concent 33.1, Red Cell Distribution Width 13.2, Neutrophils (%) (Auto) 73.7 H, Lymphocytes (%) (Auto) 15.4 L, Monocytes (%) (Auto) 7.9 H, Eosinophils (%) (Auto) 2.1, Basophils (%) (Auto) 0.4, Neutrophils # (Auto) 7.3, Lymphocytes # (Auto) 1.5, Monocytes # (Auto) 0.8, Eosinophils # (Auto) 0.2, Basophils # (Auto) 0.0, Calcium Level 9.0 Microbiology Microbiology 03/19/19 Blood Culture - Final, Complete NO GROWTH AFTER 5 DAYS 03/19/19 Blood Culture - Final, Complete NO GROWTH AFTER 5 DAYS Jem Goff M.D. Mar 26, 2019 18:10
[2019-03-26] MEDS: SOLIFENACIN 5 MG TAB PO SCH (21:45)
[2019-03-26 21:58] VITALS: BP 133/74
[2019-03-27 02:15] VITALS: BP 117/64
[2019-03-27] MEDS: VANCOMYCIN ORAL SOL 250MG/5ML ORAL SYRINGE PO SCH ×4 (05:35→23:36)
[2019-03-27 05:36] LABS: BASO % 0.5 % (0.0-1.0); EOS # 0.2 10^3/uL (0.0-0.50); EOS % 2.7 % (0.0-3.0); HEMATOCRIT 27.4 % (42.0-52.0); HEMOGLOBIN 9.2 g/dl (13.5-17.5); LYMPH # 1.8 10^3/uL (1.5-4.5); LYMPH % 21.1 % (24.0-44.0); MEAN CORPUSCULAR HEMOGLOBIN 28.3 pg (27.0-33.0); MEAN CORPUSCULAR HGB CONC 33.6 g/dl (32.0-36.5); MEAN CORPUSCULAR VOLUME 84.3 fl (80.0-96.0); MONO # 0.6 10^3/uL (0.0-0.8); MONO % 7.3 % (0.0-5.0); NEUTROPHILS # 5.9 10^3/uL (1.8-7.7); NEUTROPHILS % 67.8 % (36.0-66.0); PLATELET COUNT, AUTOMATED 211 10^3/uL (150-450); RED BLOOD COUNT 3.25 10^6/uL (4.30-6.10); WHITE BLOOD COUNT 8.6 10^3/uL (4.0-10.0)
[2019-03-27 06:00] VITALS: BP 118/66
[2019-03-27 06:06] LABS: ALBUMIN 2.1 GM/DL (3.2-5.2); ALT/SGPT 12 U/L (12-78); BILIRUBIN,TOTAL 0.3 MG/DL (0.2-1.0); BLOOD UREA NITROGEN 15 MG/DL (7-18); CALCIUM LEVEL 8.9 MG/DL (8.8-10.2); CARBON DIOXIDE LEVEL 32 MEQ/L (21-32); CHLORIDE LEVEL 98 MEQ/L (98-107); CREATININE FOR GFR 1.01 MG/DL (0.70-1.30); GLOMERULAR FILTRATION RATE > 60.0 (>42); GLUCOSE, FASTING 91 MG/DL (70-100); MAGNESIUM LEVEL 2.1 MG/DL (1.8-2.4); NT-PRO BNP 1833 PG/ML (<125); POTASSIUM SERUM 4.4 MEQ/L (3.5-5.1); SODIUM LEVEL 133 MEQ/L (136-145)
[2019-03-27] MEDS: HumaLOG INSULIN (NovoLOG) PER UNIT SC SCH ×4 (07:29→21:00)
[2019-03-27] MEDS: MIRALAX *UNIT DOSE* 17GM PACKET PO SCH (09:19)
[2019-03-27] MEDS: PANTOPRAZOLE 40MG TAB (PROTONIX) PO SCH (09:20)
[2019-03-27] MEDS: MAGNESIUM OXIDE 400 MG TAB (MAG-OX) PO SCH ×2 (09:20→22:24)
[2019-03-27] MEDS: BACLOFEN 10 MG TAB PO SCH ×3 (09:20→22:24)
[2019-03-27] MEDS: ATORVASTATIN 20 MG TAB PO SCH (09:20)
[2019-03-27] MEDS: FENOFIBRATE 145 MG TAB (TRICOR) PO SCH (09:20)
[2019-03-27] MEDS: DOCUSATE SODIUM 100 MG CAP PO SCH ×2 (09:20→22:24)
[2019-03-27] MEDS: GABAPENTIN 300 MG CAP PO SCH ×3 (09:20→22:24)
[2019-03-27] MEDS: LEVEMIR (INSULIN DETEMIR) 1 UNITS/0.01ML SC SCH ×2 (09:20→22:25)
[2019-03-27] MEDS: APIXABAN 5 MG TAB (ELIQUIS) PO SCH ×2 (09:20→22:24)
[2019-03-27] MEDS: FLEET ENEMA PR SCH (09:21)
--- NOTE | 2019-03-27 11:12 | IPNPDOC ---
Subjective General Date/Time Seen The patient was seen on 03/27/19 at 11:02. Subject Chief Complaint/History The patient is a 73-year-old male admitted with a reason for visit of Ankylosing Spondylitis Of Multiple Sites In Spine. Patient reports relatively comfortable, still has some mild right lower quadrant discomfort but denies any nausea, vomiting. With an aggressive bowel regimen is moving his bowels, loose consistency now. He denies any bloating. He's been tolerating clears for 2 days now. Current Medications Current Medications Current Medications Acetaminophen (Tylenol Tab) 650 mg Q6H PRN PO PAIN OR FEVER Last administered on 03/23/19 14:16; Start 03/13/19 at 14:00 Apixaban (Eliquis) 5 mg BID PO Last administered on 03/27/19 09:20; Start 03/13/19 at 21:00 Atorvastatin Calcium (Lipitor) 40 mg DAILY PO Last administered on 03/27/19 09:20; Start 03/14/19 at 09:00 Baclofen (Lioresal) 10 mg TID PO Last administered on 03/27/19 09:20; Start 03/18/19 at 16:00 Baclofen (Lioresal) 20 mg TID PO Last administered on 03/18/19 10:21; Start 03/13/19 at 16:00; Stop 03/18/19 at 12:14; Status DC Bisacodyl (Dulcolax Suppository) 10 mg DAILY PRN MO CONSTIPATION Last administered on 03/22/19 15:08; Start 03/13/19 at 14:00 Cefepime HCl 2 gm/ Dextrose 50 ml @ 100 mls/hr Q12H IV Last administered on 03/26/19at 23:49; Start 03/23/19 at 12:00 Cefepime HCl 2 gm/ Dextrose 50 ml @ 100 mls/hr Q8H IV Last administered on 03/22/19 03:09; Start 03/19/19 at 20:00; Stop 03/22/19 at 07:32; Status DC Ceftriaxone Sodium 1 gm/ Dextrose 50 ml @ 100 mls/hr Q24H IV Last administered on 03/19/19at 15:42; Start 03/13/19 at 15:00; Stop 03/19/19 at 18:24; Status DC Clotrimazole (Lotrimin) 1 dose BID PRN TOP RASH/ITCHING; Start 03/13/19 at 14:00 Dextrose (Dextrose 50%) 25 ml ASDIRECTED PRN IV SEE LABEL COMMENTS Last administered on 03/25/19at 07:32; Start 03/13/19 at 14:00 Dextrose/Sodium Chloride 1,000 ml @ 60 mls/hr [id number] IV Last administered on 03/17/19at 10:46; Start 03/17/19 at 10:30; Stop 03/17/19 at 14:43; Status DC Docusate Sodium (Colace) 100 mg BID PO Last administered on 03/27/19at 09:20; Start 03/20/19 at 09:00 Fenofibrate (Tricor) 145 mg DAILY PO Last administered on 03/27/19at 09:20; Start 03/14/19 at 09:00 Furosemide (Lasix) 40 mg DAILY PO Last administered on 03/23/19at 08:09; Start 03/16/19 at 09:00; Stop 03/23/19 at 10:25; Status DC Gabapentin (Neurontin) 600 mg TID PO Last administered on 03/27/19at 09:20; Start 03/13/19 at 21:00 Glucagon (Glucagon) 1 mg ASDIRECTED PRN SC SEE LABEL COMMENTS; Start 03/13/19 at 14:00 Glucose (Glucose) 16 GM ASDIRECTED PRN PO SEE LABEL COMMENTS; Start 03/13/19 at 14:00 Home Med (Med Rec Complete!) ASDIRECTED XX ; Start 03/13/19 at 13:30; Stop 03/13/19 at 13:30; Status DC Insulin Detemir (Levemir Insulin) 10 units BID SC Last administered on 03/27/19at 09:20; Start 03/13/19 at 21:00; Status Future hold Insulin Human Lispro (HumaLOG INSULIN) SEE PROTOCOL TABLE AC SC Last administered on 03/26/19at 18:01; Start 03/13/19 at 17:30 Insulin Human Lispro (HumaLOG INSULIN) SEE PROTOCOL TABLE QHS SC Last administered on 03/21/19at 20:02; Start 03/13/19 at 21:00 Lactated Ringer's 1,000 ml @ 80 mls/hr [id number] IV Last administered on 03/25/19 01:54; Start 03/24/19 at 12:45; Stop 03/25/19 at 07:58; Status DC Levofloxacin (Levaquin) 750 mg Q48H PO Last administered on 03/25/19at 18:08; Start 03/19/19 at 18:00 Magnesium Oxide (Mag-Ox) 800 mg BID PO Last administered on 03/27/19at 09:20; Start 03/13/19 at 21:00 Nitroglycerin (Nitrostat (1/ 150)) 0.4 mg Q5MP PRN SL CHEST PAIN; Start 03/13/19 at 14:00 Nystatin (Mycostatin Powder, Nystop) 1 dose BID PRN TOP RASH/ITCHING; Start 03/13/19 at 14:00 Ondansetron HCl (ZOFRAN INJection) 4 mg Q6HP PRN IV NAUSEA OR VOMITING Last administered on 03/24/19 06:52; Start 03/13/19 at 14:15 Pantoprazole Sodium (Protonix) 40 mg DAILY PO Last administered on 03/27/19at 09:20; Start 03/14/19 at 09:00 Polyethylene Glycol (Miralax) 1 pkt DAILY PO Last administered on 03/27/19 09:19; Start 03/25/19 at 09:00 Potassium Chloride/Dextrose/ Sod Cl 1,000 ml @ 80 mls/hr [id number] IV Last administered on 03/26/19at 08:46; Start 03/25/19 at 09:00; Stop 03/27/19 at 00:17; Status DC Sodium Biphosphate/ Sodium Phosphate (Fleet Enema) 1 ea DAILY MO Last ad ministered on 03/27/19at 09:21; Start 03/24/19 at 09:00 Sodium Chloride 1,000 ml @ 70 mls/hr [id number] IV Last administered on 03/14/19at 04:33; Start 03/13/19 at 14:15; Stop 03/14/19 at 10:42; Status DC Sodium Chloride 1,000 ml @ 150 mls/hr Q6H40M IV Last administered on 03/13/19at 13:38; Start 03/13/19 at 12:57; Stop 03/13/19 at 15:00; Status DC Solifenacin (Vesicare) 10 mg QHS PO Last administered on 03/26/19at 21:45; Start 03/13/19 at 21:00 Spironolactone (Aldactone) 12.5 mg DAILY PO Last administered on 03/23/19at 08:08; Start 03/16/19 at 09:00; Stop 03/23/19 at 10:25; Status DC Vancomycin HCl (First-Vancomycin 50(Firvanq)- 250mg/5ml) 125 mg Q6H PO Last administered on 03/27/19at 05:35; Start 03/14/19 at 12:00 Allergies Coded Allergies: Sulfa (Sulfonamide Antibiotics) (Verified Allergy, Intermediate, hives, 12/20/18) alcohol (Verified Allergy, Intermediate, soap rash, 12/20/18) carisoprodol (Verified Allergy, Intermediate, hives, 12/20/18) gum mastic (Verified Allergy, Intermediate, soap rash, 12/20/18) purell mosture therapy latex (Verified Allergy, Intermediate, rash, 12/20/18) methyl salicylate (Verified Allergy, Intermediate, soap rash, 12/20/18) methylparaben (Verified Allergy, Intermediate, hives, 12/20/18) morphine (Verified Allergy, Intermediate, HIVES RASH AT SITE LIKELY HISTAMINE RELEASE, 12/20/18) storax (Verified Allergy, Intermediate, soap rash, 12/20/18) SOO Inhibitors (Verified Allergy, Unknown, 12/20/18) TAPE (Verified Allergy, Unknown, STERISTRIPS, 02/10/18) hydrochlorothiazide (Verified Allergy, Unknown, unsure of reaction, 12/20/18) nitrofurantoin (Verified Adverse Reaction, Mild, diarrhea, 12/20/18) Objective Physical Examination Examination GENERAL APPEARANCE: Patient seen sitting up on the chair, appears very comfortable. SKIN: Warm and dry. ABDOMEN: Abdomen is moderately rounded and protuberant, mildly distended, soft, with very minimal tenderness now over the right lower quadrant area where his previous incisional hernia was repaired with some thickening most likely subcutaneously related to the mesh or hernia repair. This possibility of a small recurrence over that area.. Vital Signs Vital Signs Date Time Temp Pulse Resp B/P (MAP) Pulse Ox O2 Delivery O2 Flow Rate FiO2 03/27/19 06:00 98.5 79 18 118/66 (83) 92 I&Os I&O- Last 24 Hours up to 6 AM 03/27/19 06:00 Intake Total 2870 ml Output Total 2400 ml Balance 470 ml Laboratory Data Labs 24H Laboratory Tests 2 03/27/19 05:22: Immature Granulocyte % (Auto) 0.6, White Blood Count 8.6, Red Blood Count 3.25L, Hemoglobin 9.2L, Hematocrit 27.4L, Mean Corpuscular Volume 84.3, Mean Corpuscular Hemoglobin 28.3, Mean Corpuscular Hemoglobin Concent 33.6, Red Cell Distribution Width 13.3, Platelet Count 211, Neutrophils (%) (Auto) 67.8H, Lymphocytes (%) (Auto) 21.1L, Monocytes (%) (Auto) 7.3H, Eosinophils (%) (Auto) 2.7, Basophils (%) (Auto) 0.5, Neutrophils # (Auto) 5.9, Lymphocytes # (Auto) 1.8, Monocytes # (Auto) 0.6, Eosinophils # (Auto) 0.2, Basophils # (Auto) 0.0, Nucleated Red Blood Cells % (auto) 0.0, Anion Gap 3L, Glomerular Filtration Rate > 60.0, Blood Urea Nitrogen 15, Creatinine 1.01, Sodium Level 133L, Potassium Level 4.4, Chloride Level 98, Carbon Dioxide Level 32, Calcium Level 8.9, Aspartate Amino Transf (AST/SGOT) 18, Alanine Aminotransferase (ALT/SGPT) 12, Alkaline Phosphatase 53, Total Bilirubin 0.3, Total Protein 6.0L, Albumin 2.1L, Magnesium Level 2.1, [id number]-Type Natriuretic Peptide 1833H, Albumin/Globulin Ratio 0.54L CBC/BMP Laboratory Tests 03/27/19 05:22 Red Blood Count 3.25 L, Mean Corpuscular Volume 84.3, Mean Corpuscular Hemoglobin 28.3, Mean Corpuscular Hemoglobin Concent 33.6, Red Cell Distribution Width 13.3, Neutrophils (%) (Auto) 67.8 H, Lymphocytes (%) (Auto) 21.1 L, Monocytes (%) (Auto) 7.3 H, Eosinophils (%) (Auto) 2.7, Basophils (%) (Auto) 0.5, Neutrophils # (Auto) 5.9, Lymphocytes # (Auto) 1.8, Monocytes # (Auto) 0.6, Eosinophils # (Auto) 0.2, Basophils # (Auto) 0.0, Calcium Level 8.9, Aspartate Amino Transf (AST/SGOT) 18, Alanine Aminotransferase (ALT/SGPT) 12, Alkaline Phosphatase 53, Total Bilirubin 0.3, Total Protein 6.0 L, Albumin 2.1 L Microbiology Microbiology 03/19/19 Blood Culture - Final, Complete NO GROWTH AFTER 5 DAYS 03/19/19 Blood Culture - Final, Complete NO GROWTH AFTER 5 DAYS Imaging Studies X-ray KUB There is radiographic contrast material in the distal descending colon and sigmoid colon and in a fashion essentially unchanged from yesterday. There is no evidence of free intraperitoneal air. The Ann filter catheter is unchanged. Small bowel dilatation seen on the prior exam appears essentially unchanged. An exact comparison cannot be made since today's exam is a KUB and the prior exam is an abdominal series. Impression Small bowel obstruction Chronic constipation His been doing well and tolerating clear liquids for 48 hours now, never needed nasogastric tube decompression. There is still has some portion of the mid bowel that appears air filled essentially disabled for the past 2 days. There is better clearance of stools in his colon she think predominantly was causing him symptoms. I'll try him on soft foods and see how he does. He still has some mild tenderness most likely related to the abdominal wall, mesh and scarring at the incisional hernia repair site. Plan / VTE VTE Prophylaxis Ordered?: Yes (Eliquis) Plan / Urinary Catheter Urinary Catheter: Other Catheter: (patient has chronic suprapubic catheter) Reason for insertion/continuin: Other-document below (patient has neurogenic bladder) WENDY MARTIN MD Mar 27, 2019 11:12
[2019-03-27] MEDS: CEFEPIME HCL 2 GM in D5W MINI-BAG PLUS 50 ML IV SCH ×2 (12:46→23:36)
[2019-03-27 14:00] VITALS: BP 115/87
[2019-03-27] MEDS: LevoFLOXacin 750 MG TABLET PO SCH (18:02)
--- NOTE | 2019-03-27 18:39 | IPNPDOC ---
Subjective Date Seen The patient was seen on 03/27/19. Subjective Chief Complaint/HPI minimal abdominal pain Constitutional: Denies: Chills Eyes: Denies: Pain ENT: Denies: Head Aches Skin: Denies: Rash Pulmonary: Denies: Dyspnea, Cough Cardiovascular: Denies: Chest Pain Gastrointestinal: Denies: Nausea, Vomiting Genitourinary: Denies: Dysuria Objective Physical Examination General Exam: Positive: Alert, No Acute Distress ENT Exam: Positive: Mucous membr. moist/pink Neck Exam: Positive: Supple; Negative: JVD, thyromegaly, +2 carotid pulse wo bruit, Lymphadenopathy, Other Chest Exam: Positive: Clear to auscultation, Normal air movement; Negative: Rales, Rhonchi, Wheezing Heart Exam: Positive: Rate Normal, Regular Rhythm Abdomen Exam: Positive: Normal bowel sounds, Soft, Other (suprapubic catheter site is intact with yellow urine and no leakage currently); Negative: Tenderness Extremity Exam: Positive: Other (patient does have notable joint deformity, especially to his feet consistent with Charcot. There is also an element of arthritis. 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 ), Mood NL Assessment /Plan Problems (1) SBO (small bowel obstruction) Status: Acute Problem Text: minimal distension/pain 03/27 advanced to soft diet ho CC 2 neurogenic bowel 03/25 2 BMs on PG/FE/doc 100 BID 03/26 AXR s change cw 03/25 (2) Hospital-acquired pneumonia Status: Acute Problem Text: D5 cefepime / D9 levo 03/19 BCX2 NG (3) UTI (urinary tract infection) due to urinary indwelling catheter Status: Acute Problem Text: 03/12 UCX E.Coli resistant to levo, sens to cefepime Suprapubic catheter changed recently due to leakage of urine, but continues to leak and developing breakdown around catheter (4) H/O Clostridium difficile infection Problem Text: remains on vanco for C diff px no further diarrhea (5) Altered mental status Status: Acute Response to Treatment: Improving Problem Specific Plan: Consult Specialist (Dr. Forman) Problem Text: back to baseline MS-favor BELINDA (6) CKD (chronic kidney disease) Status: Chronic Response to Treatment: Stable Problem Text: at baseline cr 1.1-1.2 c stable Na/K (7) Acute metabolic encephalopathy Status: Resolved Response to Treatment: Improving Problem Text: Secondary to UTI (8) Chronic a-fib Status: Chronic Problem Text: On eliquis (9) DM2 (diabetes mellitus, type 2) Status: Chronic Problem Text: On SSI coverage but no fingerstick blood sugars documented - discussed with charge nurse - monitor trends (10) Constipation Status: Acute Problem Text: as per SBO Plan/VTE VTE Prophylaxis Ordered?: Yes (Eliquis) Plan/Urinary Catheter Urinary Catheter: Other Catheter: (patient has chronic suprapubic catheter) Reason for insertion/continuin: Other-document below (patient has neurogenic bladder) Plan IVF: Initiate Diet: Continue Current Activity: Encourage Ambulation Therapy: PT, OT Medications: Start Antibiotics Diagnostics: Repeat Labs in AM VS, I&O, [facility] Vital Signs/I&O Vital Signs Date Time Temp Pulse Resp B/P (MAP) Pulse Ox O2 Delivery O2 Flow Rate FiO2 03/27/19 14:00 98.7 80 115/87 (96) 98 03/27/19 06:00 18 l I&O- Last 24 Hours up to 6 AM 03/27/19 06:00 Intake Total 2870 ml Output Total 2400 ml Balance 470 ml Laboratory Data 24H LABS Laboratory Tests 2 03/27/19 05:22: Immature Granulocyte % (Auto) 0.6, White Blood Count 8.6, Red Blood Count 3.25L, Hemoglobin 9.2L, Hematocrit 27.4L, Mean Corpuscular Volume 84.3, Mean Corpuscular Hemoglobin 28.3, Mean Corpuscular Hemoglobin Concent 33.6, Red Cell Distribution Width 13.3, Platelet Count 211, Neutrophils (%) (Auto) 67.8H, Lymphocytes (%) (Auto) 21.1L, Monocytes (%) (Auto) 7.3H, Eosinophils (%) (Auto) 2.7, Basophils (%) (Auto) 0.5, Neutrophils # (Auto) 5.9, Lymphocytes # (Auto) 1.8, Monocytes # (Auto) 0.6, Eosinophils # (Auto) 0.2, Basophils # (Auto) 0.0, Nucleated Red Blood Cells % (auto) 0.0, Anion Gap 3L, Glomerular Filtration Rate > 60.0, Blood Urea Nitrogen 15, Creatinine 1.01, Sodium Level 133L, Potassium Level 4.4, Chloride Level 98, Carbon Dioxide Level 32, Calcium Level 8.9, Aspartate Amino Transf (AST/SGOT) 18, Alanine Aminotransferase (ALT/SGPT) 12, Alkaline Phosphatase 53, Total Bilirubin 0.3, Total Protein 6.0L, Albumin 2.1L, Magnesium Level 2.1, KF-Eco-C-Type Natriuretic Peptide 1833H, Albumin/Globulin Ratio 0.54L CBC/BMP Laboratory Tests 03/27/19 05:22 Red Blood Count 3.25 L, Mean Corpuscular Volume 84.3, Mean Corpuscular Hemoglobin 28.3, Mean Corpuscular Hemoglobin Concent 33.6, Red Cell Distribution Width 13.3, Neutrophils (%) (Auto) 67.8 H, Lymphocytes (%) (Auto) 21.1 L, Monocytes (%) (Auto) 7.3 H, Eosinophils (%) (Auto) 2.7, Basophils (%) (Auto) 0.5, Neutrophils # (Auto) 5.9, Lymphocytes # (Auto) 1.8, Monocytes # (Auto) 0.6, Eosinophils # (Auto) 0.2, Basophils # (Auto) 0.0, Calcium Level 8.9, Aspartate Amino Transf (AST/SGOT) 18, Alanine Aminotransferase (ALT/SGPT) 12, Alkaline Phosphatase 53, Total Bilirubin 0.3, Total Protein 6.0 L, Albumin 2.1 L Microbiology Microbiology 03/19/19 Blood Culture - Final, Complete NO GROWTH AFTER 5 DAYS 03/19/19 Blood Culture - Final, Complete NO GROWTH AFTER 5 DAYS Jem Goff M.D. Mar 27, 2019 18:39
[2019-03-27 20:54] VITALS: BP 125/54
[2019-03-27 21:41] VITALS: BP 128/55
[2019-03-27 21:57] LABS: ABG BASE EXCESS 6.4 (-2.0-2.0); ABG O2 SATURATION 96.7 % (95.0-99.0); ABG PARTIAL PRESSURE CO2 51.8 mmHg (35.0-45.0); ABG PARTIAL PRESSURE O2 87.5 mmHg (75.0-100.0); ABG STANDARD HCO3 30.2 MEQ/L (22.0-26.0); ABG TOTAL CO2 33.6 MEQ/L (23.0-31.0); ABG pH (ARTERIAL) 7.409 UNITS (7.350-7.450)
[2019-03-27] MEDS: SOLIFENACIN 5 MG TAB PO SCH (22:24)
[2019-03-28 01:48] VITALS: BP 126/56
[2019-03-28] MEDS: VANCOMYCIN ORAL SOL 250MG/5ML ORAL SYRINGE PO SCH ×3 (05:57→17:35)
[2019-03-28 06:07] VITALS: BP 122/57
[2019-03-28 06:21] LABS: BASO % 0.4 % (0.0-1.0); EOS # 0.2 10^3/uL (0.0-0.50); EOS % 2.6 % (0.0-3.0); HEMATOCRIT 27.5 % (42.0-52.0); LYMPH % 23.4 % (24.0-44.0); MEAN CORPUSCULAR HEMOGLOBIN 27.4 pg (27.0-33.0); MEAN CORPUSCULAR HGB CONC 32.7 g/dl (32.0-36.5); MEAN CORPUSCULAR VOLUME 83.8 fl (80.0-96.0); MONO # 0.8 10^3/uL (0.0-0.8); NEUTROPHILS # 5.4 10^3/uL (1.8-7.7); NEUTROPHILS % 64.1 % (36.0-66.0); PLATELET COUNT, AUTOMATED 204 10^3/uL (150-450); RED BLOOD COUNT 3.28 10^6/uL (4.30-6.10); WHITE BLOOD COUNT 8.3 10^3/uL (4.0-10.0)
[2019-03-28 06:46] LABS: ALT/SGPT 14 U/L (12-78); BILIRUBIN,TOTAL 0.3 MG/DL (0.2-1.0); BLOOD UREA NITROGEN 16 MG/DL (7-18); CALCIUM LEVEL 9.4 MG/DL (8.8-10.2); CARBON DIOXIDE LEVEL 32 MEQ/L (21-32); CHLORIDE LEVEL 98 MEQ/L (98-107); CREATININE FOR GFR 1.04 MG/DL (0.70-1.30); GLOMERULAR FILTRATION RATE > 60.0 (>42); GLUCOSE, FASTING 83 MG/DL (70-100); POTASSIUM SERUM 4.6 MEQ/L (3.5-5.1); SODIUM LEVEL 133 MEQ/L (136-145); TOTAL PROTEIN 6.1 GM/DL (6.4-8.2)
[2019-03-28] MEDS: HumaLOG INSULIN (NovoLOG) PER UNIT SC SCH ×4 (07:30→20:54)
[2019-03-28] MEDS: PANTOPRAZOLE 40MG TAB (PROTONIX) PO SCH (09:59)
[2019-03-28] MEDS: DOCUSATE SODIUM 100 MG CAP PO SCH ×2 (09:59→20:53)
[2019-03-28] MEDS: BACLOFEN 10 MG TAB PO SCH ×3 (09:59→20:52)
[2019-03-28] MEDS: LEVEMIR (INSULIN DETEMIR) 1 UNITS/0.01ML SC SCH ×2 (09:59→20:54)
[2019-03-28 10:00] VITALS: BP 136/70
[2019-03-28] MEDS: APIXABAN 5 MG TAB (ELIQUIS) PO SCH ×2 (10:00→20:52)
[2019-03-28] MEDS: GABAPENTIN 300 MG CAP PO SCH ×3 (10:00→20:52)
[2019-03-28] MEDS: FENOFIBRATE 145 MG TAB (TRICOR) PO SCH (10:00)
[2019-03-28] MEDS: ATORVASTATIN 20 MG TAB PO SCH (10:00)
[2019-03-28] MEDS: MIRALAX *UNIT DOSE* 17GM PACKET PO SCH (10:00)
[2019-03-28] MEDS: MAGNESIUM OXIDE 400 MG TAB (MAG-OX) PO SCH ×2 (10:01→20:53)
[2019-03-28] MEDS: FLEET ENEMA PR SCH (10:02)
--- NOTE | 2019-03-28 10:45 | IPNPDOC ---
Subjective General Date/Time Seen The patient was seen on 03/28/19 at 10:43. Subject Chief Complaint/History Patient is followed up today for his bowel obstruction, constipation. He reports he is comfortable. He is tolerating soft foods. He is having loose bowel movements and is wondering whether we could day off on the fleets enema. Current Medications Current Medications Current Medications Acetaminophen (Tylenol Tab) 650 mg Q6H PRN PO PAIN OR FEVER Last administered on 03/23/19at 14:16; Start 03/13/19 at 14:00 Apixaban (Eliquis) 5 mg BID PO Last administered on 03/28/19 10:00; Start 03/13/19 at 21:00 Atorvastatin Calcium (Lipitor) 40 mg DAILY PO Last administered on 03/28/19 10:00; Start 03/14/19 at 09:00 Baclofen (Lioresal) 10 mg TID PO Last administered on 03/28/19at 09:59; Start 03/18/19 at 16:00 Baclofen (Lioresal) 20 mg TID PO Last administered on 03/18/19at 10:21; Start 03/13/19 at 16:00; Stop 03/18/19 at 12:14; Status DC Bisacodyl (Dulcolax Suppository) 10 mg DAILY PRN [place] CONSTIPATION Last administered on 03/22/19at 15:08; Start 03/13/19 at 14:00 Cefepime HCl 2 gm/ Dextrose 50 ml @ 100 mls/hr Q12H IV Last administered on 03/27/19at 23:36; Start 03/23/19 at 12:00 Cefepime HCl 2 gm/ Dextrose 50 ml @ 100 mls/hr Q8H IV Last administered on 03/22/19at 03:09; Start 03/19/19 at 20:00; Stop 03/22/19 at 07:32; Status DC Ceftriaxone Sodium 1 gm/ Dextrose 50 ml @ 100 mls/hr Q24H IV Last administered on 03/19/19at 15:42; Start 03/13/19 at 15:00; Stop 03/19/19 at 18:24; Status DC Clotrimazole (Lotrimin) 1 dose BID PRN TOP RASH/ITCHING; Start 03/13/19 at 14:00 Dextrose (Dextrose 50%) 25 ml ASDIRECTED PRN IV SEE LABEL COMMENTS Last admi nistered on 03/25/19at 07:32; Start 03/13/19 at 14:00 Dextrose/Sodium Chloride 1,000 ml @ 60 mls/hr [id number] IV Last administered on 03/17/19at 10:46; Start 03/17/19 at 10:30; Stop 03/17/19 at 14:43; Status DC Docusate Sodium (Colace) 100 mg BID PO Last administered on 03/28/19at 09:59; Start 03/20/19 at 09:00 Fenofibrate (Tricor) 145 mg DAILY PO Last administered on 03/28/19 10:00; Start 03/14/19 at 09:00 Furosemide (Lasix) 40 mg DAILY PO Last administered on 03/23/19at 08:09; Start 03/16/19 at 09:00; Stop 03/23/19 at 10:25; Status DC Gabapentin (Neurontin) 600 mg TID PO Last administered on 03/28/19at 10:00; Start 03/13/19 at 21:00 Glucagon (Glucagon) 1 mg ASDIRECTED PRN SC SEE LABEL COMMENTS; Start 03/13/19 at 14:00 Glucose (Glucose) 16 GM ASDIRECTED PRN PO SEE LABEL COMMENTS; Start 03/13/19 at 14:00 Home Med (Med Rec Complete!) ASDIRECTED XX ; Start 03/13/19 at 13:30; Stop 03/13/19 at 13:30; Status DC Insulin Detemir (Levemir Insulin) 10 units BID SC Last administered on 03/28/19 t 09:59; Start 03/13/19 at 21:00; Status Future hold Insulin Human Lispro (HumaLOG INSULIN) SEE PROTOCOL TABLE AC SC Last administered on 03/27/19at 18:03; Start 03/13/19 at 17:30 Insulin Human Lispro (HumaLOG INSULIN) SEE PROTOCOL TABLE QHS SC Last administered on 03/21/19at 20:02; Start 03/13/19 at 21:00 Lactated Ringer's 1,000 ml @ 80 mls/hr [id number] IV Last administered on 03/25/19at 01:54; Start 03/24/19 at 12:45; Stop 03/25/19 at 07:58; Status DC Levofloxacin (Levaquin) 750 mg Q48H PO Last administered on 03/27/19 18:02; Start 03/19/19 at 18:00 Magnesium Oxide (Mag-Ox) 800 mg BID PO Last administered on 03/28/19at 10:01; Start 03/13/19 at 21:00 Nitroglycerin (Nitrostat (1/ 150)) 0.4 mg Q5MP PRN SL CHEST PAIN; Start 03/13/19 at 14:00 Nystatin (Mycostatin Powder, Nystop) 1 dose BID PRN TOP RASH/ITCHING; Start 03/13/19 at 14:00 Ondansetron HCl (ZOFRAN INJection) 4 mg Q6HP PRN IV NAUSEA OR VOMITING Last administered on 03/24/19 06:52; Start 03/13/19 at 14:15 Pantoprazole Sodium (Protonix) 40 mg DAILY PO Last administered on 03/28/19 09:59; Start 03/14/19 at 09:00 Polyethylene Glycol (Miralax) 1 pkt DAILY PO Last administered on 03/28/19 10:00; Start 03/25/19 at 09:00 Potassium Chloride/Dextrose/ Sod Cl 1,000 ml @ 80 mls/hr [id number] IV Last administered on 03/26/19 08:46; Start 03/25/19 at 09:00; Stop 03/27/19 at 00:17; Status DC Sodium Biphosphate/ Sodium Phosphate (Fleet Enema) 1 ea DAILY FL Last administered on 03/28/19 10:02; Start 03/24/19 at 09:00 Sodium Chloride 1,000 ml @ 70 mls/hr [id number] IV Last administered on 03/14/19 04:33; Start 03/13/19 at 14:15; Stop 03/14/19 at 10:42; Status DC Sodium Chloride 1,000 ml @ 150 mls/hr [id number] IV Last administered on 03/13/19at 13:38; Start 03/13/19 at 12:57; Stop 03/13/19 at 15:00; Status DC Solifenacin (Vesicare) 10 mg QHS PO Last administered on 03/27/19at 22:24; Start 03/13/19 at 21:00 Spironolactone (Aldactone) 12.5 mg DAILY PO Last administered on 03/23/19at 08:08; Start 03/16/19 at 09:00; Stop 03/23/19 at 10:25; Status DC Vancomycin HCl (First-Vancomycin 50(Firvanq)- 250mg/5ml) 125 mg Q6H PO Last a dministered on 03/28/19at 05:57; Start 03/14/19 at 12:00 Allergies Coded Allergies: Sulfa (Sulfonamide Antibiotics) (Verified Allergy, Intermediate, hives, 12/20/18) alcohol (Verified Allergy, Intermediate, soap rash, 12/20/18) carisoprodol (Verified Allergy, Intermediate, hives, 12/20/18) gum mastic (Verified Allergy, Intermediate, soap rash, 12/20/18) purell mosture therapy latex (Verified Allergy, Intermediate, rash, 12/20/18) methyl salicylate (Verified Allergy, Intermediate, soap rash, 12/20/18) methylparaben (Verified Allergy, Intermediate, hives, 12/20/18) morphine (Verified Allergy, Intermediate, HIVES RASH AT SITE LIKELY HISTAMINE RELEASE, 12/20/18) storax (Verified Allergy, Intermediate, soap rash, 12/20/18) SOO Inhibitors (Verified Allergy, Unknown, 12/20/18) TAPE (Verified Allergy, Unknown, STERISTRIPS, 02/10/18) hydrochlorothiazide (Verified Allergy, Unknown, unsure of reaction, 12/20/18) nitrofurantoin (Verified Adverse Reaction, Mild, diarrhea, 12/20/18) Objective Physical Examination Examination GENERAL APPEARANCE: Patient looks very comfortable. He sitting up on the chair.. ABDOMEN: Abdomen is round, soft, nondistended. Mild tenderness over the right lower quadrant area. EXTREMITIES: Extremities have no deformities. No edema identified. Vital Signs Vital Signs Date Time Temp Pulse Resp B/P (MAP) Pulse Ox O2 Delivery O2 Flow Rate FiO2 03/28/19 06:07 97.4 82 16 122/57 (78) 99 I&Os I&O- Last 24 Hours up to 6 AM 03/28/19 06:00 Intake Total 1570 ml Output Total 3075 ml Balance -1505 ml Laboratory Data Labs 24H Laboratory Tests 2 03/27/19 21:03: Bedside Glucose (Misc Panel) 242H 03/27/19 21:41: Blood Gas Bicarbonate Standard 30.2H, Arterial Blood pH 7.409, Arterial Blood Partial Pressure CO2 51.8H, Arterial Blood Partial Pressure O2 87.5, Arterial Blood Total CO2 33.6H, Arterial Blood HCO3 32.0H, Arterial Blood Base Excess 6.4H, Arterial Blood Oxygen Saturation 96.7 03/28/19 05:25: Immature Granulocyte % (Auto) 0.5, White Blood Count 8.3, Red Blood Count 3.28L, Hemoglobin 9.0L, Hematocrit 27.5L, Mean Corpuscular Volume 83.8, Mean Corpuscular Hemoglobin 27.4, Mean Corpuscular Hemoglobin Concent 32.7, Red Cell Distribution Width 13.4, Platelet Count 204, Neutrophils (%) (Auto) 64.1, Lymphocytes (%) (Auto) 23.4L, Monocytes (%) (Auto) 9.0H, Eosinophils (%) (Auto) 2.6, Basophils (%) (Auto) 0.4, Neutrophils # (Auto) 5.4, Lymphocytes # (Auto) 2.0, Monocytes # (Auto) 0.8, Eosinophils # (Auto) 0.2, Basophils # (Auto) 0.0, Nucleated Red Blood Cells % (auto) 0.0, Anion Gap 3L, Glomerular Filtration Rate > 60.0, Blood Urea Nitrogen 16, Creatinine 1.04, Sodium Level 133L, Potassium Level 4.6, Chloride Level 98, Carbon Dioxide Level 32, Calcium Level 9.4, Aspartate Amino Transf (AST/SGOT) 16, Alanine Aminotransferase (ALT/SGPT) 14, Alkaline Phosphatase 62, Total Bilirubin 0.3, Total Protein 6.1L, Albumin 2.0L, Magnesium Level 2.0, Albumin/Globulin Ratio 0.49L CBC/BMP Laboratory Tests 03/28/19 05:25 Red Blood Count 3.28 L, Mean Corpuscular Volume 83.8, Mean Corpuscular Hemoglobin 27.4, Mean Corpuscular Hemoglobin Concent 32.7, Red Cell Distribution Width 13.4, Neutrophils (%) (Auto) 64.1, Lymphocytes (%) (Auto) 23.4 L, Monocytes (%) (Auto) 9.0 H, Eosinophils (%) (Auto) 2.6, Basophils (%) (Auto) 0.4, Neutrophils # (Auto) 5.4, Lymphocytes # (Auto) 2.0, Monocytes # (Auto) 0.8, Eosinophils # (Auto) 0.2, Basophils # (Auto) 0.0, Calcium Level 9.4, Aspartate Amino Transf (AST/SGOT) 16, Alanine Aminotransferase (ALT/SGPT) 14, Alkaline Phosphatase 62, Total Bilirubin 0.3, Total Protein 6.1 L, Albumin 2.0 L Microbiology Microbiology 03/19/19 Blood Culture - Final, Complete NO GROWTH AFTER 5 DAYS 03/19/19 Blood Culture - Final, Complete NO GROWTH AFTER 5 DAYS Impression small bowel obstruction, resolved constipation neurogenic bowel I think the tenderness in the abdomen is more related to the abdominal wall scarring/mesh. He has been tolerating food and has had no problems for 5 days now. Most of the bowel distention probably from the stool backing up/barium caking hardening the stool and he has been responsive with a more aggressive bowel regimen. will make the fleets enema every 3 days and keep him on miralax for now, depending on how he responds may need to be adjusted or kepts as is will sign off at this point Plan / VTE VTE Prophylaxis Ordered?: Yes (Eliquis) Plan / Urinary Catheter Urinary Catheter: Other Catheter: (patient has chronic suprapubic catheter) Reason for insertion/continuin: Other-document below (patient has neurogenic bladder) WENDY MARTIN MD Mar 28, 2019 10:45
[2019-03-28] MEDS: CEFEPIME HCL 2 GM in D5W MINI-BAG PLUS 50 ML IV SCH (12:00)
--- NOTE | 2019-03-28 12:04 | IPNPDOC ---
Subjective Date Seen The patient was seen on 03/28/19. Subjective Chief Complaint/HPI UTI, pneumonia Events since last encounter Improving slowly. remains afebrile. Getting OOB> declines STR. Constitutional: Denies: Chills, Fever, Night Sweats Pulmonary: Denies: Dyspnea, Cough Cardiovascular: Denies: Chest Pain, Palpitations, Orthopnea, Paroxysmal Noc. Dyspnea, Lt Headedness Gastrointestinal: Denies: Nausea, Vomiting, Abdominal Pain, Diarrhea, Constipation Objective Physical Examination General Exam: Positive: Alert, No Acute Distress ENT Exam: Positive: Mucous membr. moist/pink Neck Exam: Positive: Supple; Negative: JVD, thyromegaly, +2 carotid pulse wo bruit, Lymphadenopathy, Other Chest Exam: Positive: Clear to auscultation, Normal air movement; Negative: Rales, Rhonchi, Wheezing Heart Exam: Positive: Rate Normal, Regular Rhythm Abdomen Exam: Positive: Normal bowel sounds, Soft, Other (suprapubic catheter site is intact with yellow urine and no leakage currently); Negative: Tenderness Extremity Exam: Positive: Other (patient does have notable joint deformity, especially to his feet consistent with Charcot. There is also an element of arthritis. 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 ), Mood NL Assessment /Plan Problems (1) SBO (small bowel obstruction) Status: Acute Problem Text: 03/28/19: BMs. Progressing well. tolerating po. minimal distension/pain 03/27 advanced to soft diet ho CC 2 neurogenic bowel 03/25 2 BMs on PG/FE/doc 100 BID 03/26 AXR s change cw 03/25 (2) Hospital-acquired pneumonia Status: Acute Problem Text: 03/28/19: transitioned to Cefdinir 300 mg po bid. DC Cefepime D5 cefepime / D9 levo 03/19 BCX2 NG (3) UTI (urinary tract infection) due to urinary indwelling catheter Status: Acute Problem Text: 03/12 UCX E.Coli resistant to levo, sens to cefepime Suprapubic catheter changed recently due to leakage of urine, but continues to leak and developing breakdown around catheter (4) H/O Clostridium difficile infection Problem Text: remains on vanco for C diff px no further diarrhea (5) Altered mental status Status: Acute Response to Treatment: Improving Problem Specific Plan: Consult Specialist (Dr. Forman) Problem Text: back to baseline MS-favor BELINDA (6) CKD (chronic kidney disease) Status: Chronic Response to Treatment: Stable Problem Text: at baseline cr 1.1-1.2 c stable Na/K (7) Acute metabolic encephalopathy Status: Resolved Response to Treatment: Improving Problem Text: Secondary to UTI (8) Chronic a-fib Status: Chronic Problem Text: On eliquis (9) DM2 (diabetes mellitus, type 2) Status: Chronic Problem Text: On SSI coverage but no fingerstick blood sugars documented - d iscussed with charge nurse - monitor trends (10) Constipation Status: Acute Response to Treatment: Improving Problem Text: as per SBO Plan/VTE VTE Prophylaxis Ordered?: Yes (Eliquis) Plan/Urinary Catheter Urinary Catheter: Other Catheter: (patient has chronic suprapubic catheter) Reason for insertion/continuin: Other-document below (patient has neurogenic bladder) Plan IVF: Initiate Diet: Continue Current Activity: Encourage Ambulation Therapy: PT, OT Medications: Start Antibiotics Diagnostics: Repeat Labs in AM VS, I&O, 24H, [facility] Vital Signs/I&O Vital Signs Date Time Temp Pulse Resp B/P (MAP) Pulse Ox O2 Delivery O2 Flow Rate FiO2 03/28/19 06:07 97.4 82 16 122/57 (78) 99 I&O- Last 24 Hours up to 6 AM 03/28/19 06:00 Intake Total 1570 ml Output Total 3075 ml Balance -1505 ml Laboratory Data 24H LABS Laboratory Tests 2 03/27/19 21:03: Bedside Glucose (Misc Panel) 242H 03/27/19 21:41: Blood Gas Bicarbonate Standard 30.2H, Arterial Blood pH 7.409, Arterial Blood Partial Pressure CO2 51.8H, Arterial Blood Partial Pressure O2 87.5, Arterial Blood Total CO2 33.6H, Arterial Blood HCO3 32.0H, Arterial Blood Base Excess 6.4H, Arterial Blood Oxygen Saturation 96.7 03/28/19 05:25: Immature Granulocyte % (Auto) 0.5, White Blood Count 8.3, Red Blood Count 3.28L, Hemoglobin 9.0L, Hematocrit 27.5L, Mean Corpuscular Volume 83.8, Mean Corpuscular Hemoglobin 27.4, Mean Corpuscular Hemoglobin Concent 32.7, Red Cell Distribution Width 13.4, Platelet Count 204, Neutrophils (%) (Auto) 64.1, Lymphocytes (%) (Auto) 23.4L, Monocytes (%) (Auto) 9.0H, Eosinophils (%) (Auto) 2.6, Basophils (%) (Auto) 0.4, Neutrophils # (Auto) 5.4, Lymphocytes # (Auto) 2.0, Monocytes # (Auto) 0.8, Eosinophils # (Auto) 0.2, Basophils # (Auto) 0.0, Nucleated Red Blood Cells % (auto) 0.0, Anion Gap 3L, Glomerular Filtration Rate > 60.0, Blood Urea Nitrogen 16, Creatinine 1.04, Sodium Level 133L, Potassium Level 4.6, Chloride Level 98, Carbon Dioxide Level 32, Calcium Level 9.4, Aspartate Amino Transf (AST/SGOT) 16, Alanine Aminotransferase (ALT/SGPT) 14, Alkaline Phosphatase 62, Total Bilirubin 0.3, Total Protein 6.1L, Albumin 2.0L, Magnesium Level 2.0, Albumin/Globulin Ratio 0.49L CBC/BMP Laboratory Tests 03/28/19 05:25 Red Blood Count 3.28 L, Mean Corpuscular Volume 83.8, Mean Corpuscular Hemoglobin 27.4, Mean Corpuscular Hemoglobin Concent 32.7, Red Cell Distribution Width 13.4, Neutrophils (%) (Auto) 64.1, Lymphocytes (%) (Auto) 23.4 L, Mo nocytes (%) (Auto) 9.0 H, Eosinophils (%) (Auto) 2.6, Basophils (%) (Auto) 0.4, Neutrophils # (Auto) 5.4, Lymphocytes # (Auto) 2.0, Monocytes # (Auto) 0.8, Eosinophils # (Auto) 0.2, Basophils # (Auto) 0.0, Calcium Level 9.4, Aspartate Amino Transf (AST/SGOT) 16, Alanine Aminotransferase (ALT/SGPT) 14, Alkaline Phosphatase 62, Total Bilirubin 0.3, Total Protein 6.1 L, Albumin 2.0 L Microbiology Microbiology 03/19/19 Blood Culture - Final, Complete NO GROWTH AFTER 5 DAYS 03/19/19 Blood Culture - Final, Complete NO GROWTH AFTER 5 DAYS Katarina Langford [facility] Mar 28, 2019 12:04
[2019-03-28] MEDS: ONDANSETRON 4MG/2ML VIAL (J2405) IV PRN (12:34)
[2019-03-28] MEDS: CEFDINIR 300 MG CAP (OMNICEF) PO SCH ×2 (13:44→20:53)
[2019-03-28 14:00] VITALS: BP 133/60
--- NOTE | 2019-03-28 16:15 | REP ---
HISTORY: History if small bowel obstruction. Now having emesis. COMPARISON: The latest prior for comparison is two days ago. There is less radiographic contrast material in the colon. The bowel loops are otherwise unchanged. There is no change in the osseous structures. There is no change in the appearance of the [place] filter. IMPRESSION: No evidence of a colonic obstruction. Less contrast/content is seen in the colon. Electronically Signed by Nixon Pacheco DO 03/28/2019 04:22 P
[2019-03-28 20:00] VITALS: BP 110/42
[2019-03-28] MEDS: SOLIFENACIN 5 MG TAB PO SCH (20:54)
[2019-03-28 22:00] VITALS: BP 110/42
[2019-03-29] MEDS: VANCOMYCIN ORAL SOL 250MG/5ML ORAL SYRINGE PO SCH ×4 (00:03→17:33)
[2019-03-29 06:00] VITALS: BP 114/45
[2019-03-29 06:05] LABS: BASO % 0.4 % (0.0-1.0); EOS # 0.3 10^3/uL (0.0-0.50); EOS % 3.7 % (0.0-3.0); HEMATOCRIT 30.3 % (42.0-52.0); HEMOGLOBIN 9.9 g/dl (13.5-17.5); LYMPH % 25.3 % (24.0-44.0); MEAN CORPUSCULAR HEMOGLOBIN 28.5 pg (27.0-33.0); MEAN CORPUSCULAR HGB CONC 32.7 g/dl (32.0-36.5); MEAN CORPUSCULAR VOLUME 87.3 fl (80.0-96.0); MONO # 0.8 10^3/uL (0.0-0.8); MONO % 10.1 % (0.0-5.0); NEUTROPHILS # 4.7 10^3/uL (1.8-7.7); PLATELET COUNT, AUTOMATED 202 10^3/uL (150-450); RED BLOOD COUNT 3.47 10^6/uL (4.30-6.10); WHITE BLOOD COUNT 7.8 10^3/uL (4.0-10.0)
[2019-03-29 06:36] LABS: ALBUMIN 2.2 GM/DL (3.2-5.2); ALT/SGPT 14 U/L (12-78); BILIRUBIN,TOTAL 0.2 MG/DL (0.2-1.0); BLOOD UREA NITROGEN 14 MG/DL (7-18); CALCIUM LEVEL 9.8 MG/DL (8.8-10.2); CARBON DIOXIDE LEVEL 31 MEQ/L (21-32); CHLORIDE LEVEL 99 MEQ/L (98-107); CREATININE FOR GFR 1.09 MG/DL (0.70-1.30); GLOMERULAR FILTRATION RATE > 60.0 (>42); GLUCOSE, FASTING 92 MG/DL (70-100); POTASSIUM SERUM 4.6 MEQ/L (3.5-5.1); SODIUM LEVEL 132 MEQ/L (136-145); TOTAL PROTEIN 6.3 GM/DL (6.4-8.2)
[2019-03-29] MEDS: HumaLOG INSULIN (NovoLOG) PER UNIT SC SCH ×4 (07:29→21:00)
[2019-03-29 09:20] VITALS: BP 160/90
[2019-03-29] MEDS: GABAPENTIN 300 MG CAP PO SCH ×3 (10:17→21:13)
[2019-03-29] MEDS: FENOFIBRATE 145 MG TAB (TRICOR) PO SCH (10:17)
[2019-03-29] MEDS: CEFDINIR 300 MG CAP (OMNICEF) PO SCH ×2 (10:17→21:12)
[2019-03-29] MEDS: DOCUSATE SODIUM 100 MG CAP PO SCH ×2 (10:18→21:13)
[2019-03-29] MEDS: ATORVASTATIN 20 MG TAB PO SCH (10:18)
[2019-03-29] MEDS: PANTOPRAZOLE 40MG TAB (PROTONIX) PO SCH (10:18)
[2019-03-29] MEDS: MIRALAX *UNIT DOSE* 17GM PACKET PO SCH (10:19)
[2019-03-29] MEDS: BACLOFEN 10 MG TAB PO SCH ×3 (10:19→21:13)
[2019-03-29] MEDS: MAGNESIUM OXIDE 400 MG TAB (MAG-OX) PO SCH ×2 (10:19→21:12)
[2019-03-29] MEDS: APIXABAN 5 MG TAB (ELIQUIS) PO SCH ×2 (10:19→21:13)
[2019-03-29] MEDS: LEVEMIR (INSULIN DETEMIR) 1 UNITS/0.01ML SC SCH ×2 (10:20→21:12)
[2019-03-29 13:30] VITALS: BP 134/82
[2019-03-29] MEDS: LevoFLOXacin 750 MG TABLET PO SCH (17:33)
--- NOTE | 2019-03-29 17:59 | IPNPDOC ---
Subjective Date Seen The patient was seen on 03/29/19. Subjective Chief Complaint/HPI resolved abdominal pain Constitutional: Denies: Chills Eyes: Denies: Pain ENT: Denies: Head Aches Skin: Denies: Rash, Lesions Pulmonary: Denies: Dyspnea Gastrointestinal: Denies: Nausea, Vomiting Genitourinary: Denies: Dysuria Objective Physical Examination General Exam: Positive: Alert, No Acute Distress ENT Exam: Positive: Mucous membr. moist/pink Neck Exam: Positive: Supple; Negative: JVD, thyromegaly, +2 carotid pulse wo bruit, Lymphadenopathy, Other Chest Exam: Positive: Clear to auscultation, Normal air movement; Negative: Rales, Rhonchi, Wheezing Heart Exam: Positive: Rate Normal, Regular Rhythm Abdomen Exam: Positive: Normal bowel sounds, Soft, Other (suprapubic catheter site is intact with yellow urine and no leakage currently); Negative: Tenderness Extremity Exam: Positive: Other (patient does have notable joint deformity, especially to his feet consistent with Charcot. There is also an element of arthritis. 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 ), Mood NL Assessment /Plan Problems (1) Constipation Status: Acute Response to Treatment: Improving Problem Text: CC 2 neurogenic bowel / chronic abdominal pain 2 hernia mesh repair/thin abdominal wall musculature 03/25 2 BMs on PG/FE q3D/doc 100 BID (2) Hospital-acquired pneumonia Status: Acute Problem Text: cefdinir as per UTI/ D11 levo, therefore, held 03/19 BCX2 NG (3) UTI (urinary tract infection) due to urinary indwelling catheter Status: Acute Problem Text: D2/5 cefdinir (prior 5D cefepime) 03/12 UCX E.Coli resistant to levo, sens to cefepime/cefdinir (4) H/O Clostridium difficile infection Problem Text: remains on vanco for C diff px no further diarrhea (5) Altered mental status Status: Acute Response to Treatment: Improving Problem Specific Plan: Consult Specialist (Dr. Forman) Problem Text: back to baseline MS-favor BELINDA (6) CKD (chronic kidney disease) Status: Chronic Response to Treatment: Stable Problem Text: at baseline cr 1.1-1.2 c stable Na/K (7) Acute metabolic encephalopathy Status: Resolved Response to Treatment: Improving Problem Text: Secondary to UTI (8) Chronic a-fib Status: Chronic Problem Text: On eliquis (9) DM2 (diabetes mellitus, type 2) Status: Chronic Problem Text: On SSI coverage but no fingerstick blood sugars documented - discussed with charge nurse - monitor trends Plan/VTE VTE Prophylaxis Ordered?: Yes (Eliquis) Plan/Urinary Catheter Urinary Catheter: Other Catheter: (patient has chronic suprapubic catheter) Reason for insertion/continuin: Other-document below (patient has neurogenic bladder) Plan IVF: Initiate Diet: Continue Current Activity: Encourage Ambulation Therapy: PT, OT Medications: Start Antibiotics Diagnostics: Repeat Labs in AM VS, I&O, 24H, Fishbone Vital Signs/I&O Vital Signs Date Time Temp Pulse Resp B/P (MAP) Pulse Ox O2 Delivery O2 Flow Rate FiO2 03/29/19 13:30 97.2 78 18 134/82 (99) 100 I&O- Last 24 Hours up to 6 AM 03/29/19 06:00 Intake Total 1410 ml Output Total 4475 ml Balance -3065 ml Laboratory Data 24H LABS Laboratory Tests 2 03/29/19 05:43: Immature Granulocyte % (Auto) 0.5, White Blood Count 7.8, Red Blood Count 3.47L, Hemoglobin 9.9L, Hematocrit 30.3L, Mean Corpuscular Volume 87.3, Mean Corpuscular Hemoglobin 28.5, Mean Corpuscular Hemoglobin Concent 32.7, Red Cell Distribution Width 13.6, Platelet Count 202, Neutrophils (%) (Auto) 60.0, Lymphocytes (%) (Auto) 25.3, Monocytes (%) (Auto) 10.1H, Eosinophils (%) (Auto) 3.7H, Basophils (%) (Auto) 0.4, Neutrophils # (Auto) 4.7, Lymphocytes # (Auto) 2.0, Monocytes # (Auto) 0.8, Eosinophils # (Auto) 0.3, Basophils # (Auto) 0.0, Nucleated Red Blood Cells % (auto) 0.0, Anion Gap 2L, Glomerular Filtration Rate > 60.0, Blood Urea Nitrogen 14, Creatinine 1.09, Sodium Level 132L, Potassium Level 4.6, Chloride Level 99, Carbon Dioxide Level 31, Calcium Level 9.8, Aspartate Amino Transf (AST/SGOT) 12, Alanine Aminotransferase (ALT/SGPT) 14, Alkaline Phosphatase 67, Total Bilirubin 0.2, Total Protein 6.3L, Albumin 2.2L, Magnesium Level 2.0, Albumin/Globulin Ratio 0.54L CBC/BMP Laboratory Tests 03/29/19 05:43 Red Blood Count 3.47 L, Mean Corpuscular Volume 87.3, Mean Corpuscular Hemoglobin 28.5, Mean Corpuscular Hemoglobin Concent 32.7, Red Cell Distribution Width 13.6, Neutrophils (%) (Auto) 60.0, Lymphocytes (%) (Auto) 25.3, Monocytes (%) (Auto) 10.1 H, Eosinophils (%) (Auto) 3.7 H, Basophils (%) (Auto) 0.4, Neutrophils # (Auto) 4.7, Lymphocytes # (Auto) 2.0, Monocytes # (Auto) 0.8, Eosinophils # (Auto) 0.3, Basophils # (Auto) 0.0, Calcium Level 9.8, Aspartate Amino Transf (AST/SGOT) 12, Alanine Aminotransferase (ALT/SGPT) 14, Alkaline Phosphatase 67, Total Bilirubin 0.2, Total Protein 6.3 L, Albumin 2.2 L Microbiology Microbiology 03/19/19 Blood Culture - Final, Complete NO GROWTH AFTER 5 DAYS 03/19/19 Blood Culture - Final, Complete NO GROWTH AFTER 5 DAYS Jem Goff M.D. Mar 29, 2019 17:59
[2019-03-29 18:20] VITALS: BP 151/72
[2019-03-29] MEDS: SOLIFENACIN 5 MG TAB PO SCH (21:12)
[2019-03-29 21:43] VITALS: BP 145/71
[2019-03-30] MEDS: VANCOMYCIN ORAL SOL 250MG/5ML ORAL SYRINGE PO SCH ×3 (00:04→12:23)
[2019-03-30 05:56] LABS: BASO % 0.5 % (0.0-1.0); EOS # 0.3 10^3/uL (0.0-0.50); EOS % 3.3 % (0.0-3.0); HEMATOCRIT 28.9 % (42.0-52.0); HEMOGLOBIN 9.4 g/dl (13.5-17.5); LYMPH # 2.1 10^3/uL (1.5-4.5); LYMPH % 25.4 % (24.0-44.0); MEAN CORPUSCULAR HEMOGLOBIN 28.3 pg (27.0-33.0); MEAN CORPUSCULAR HGB CONC 32.5 g/dl (32.0-36.5); MONO # 0.7 10^3/uL (0.0-0.8); MONO % 8.2 % (0.0-5.0); NEUTROPHILS # 5.2 10^3/uL (1.8-7.7); NEUTROPHILS % 61.9 % (36.0-66.0); PLATELET COUNT, AUTOMATED 202 10^3/uL (150-450); RED BLOOD COUNT 3.32 10^6/uL (4.30-6.10); WHITE BLOOD COUNT 8.4 10^3/uL (4.0-10.0)
[2019-03-30 06:18] LABS: ALBUMIN 2.2 GM/DL (3.2-5.2); ALT/SGPT 12 U/L (12-78); BILIRUBIN,TOTAL 0.2 MG/DL (0.2-1.0); BLOOD UREA NITROGEN 16 MG/DL (7-18); CALCIUM LEVEL 9.8 MG/DL (8.8-10.2); CARBON DIOXIDE LEVEL 32 MEQ/L (21-32); CHLORIDE LEVEL 99 MEQ/L (98-107); CREATININE FOR GFR 1.21 MG/DL (0.70-1.30); GLOMERULAR FILTRATION RATE > 60.0 (>42); GLUCOSE, FASTING 115 MG/DL (70-100); MAGNESIUM LEVEL 2.1 MG/DL (1.8-2.4); POTASSIUM SERUM 4.9 MEQ/L (3.5-5.1); SODIUM LEVEL 134 MEQ/L (136-145); TOTAL PROTEIN 6.2 GM/DL (6.4-8.2)
[2019-03-30 06:35] VITALS: BP 135/68
[2019-03-30] MEDS: LEVEMIR (INSULIN DETEMIR) 1 UNITS/0.01ML SC SCH (07:49)
[2019-03-30] MEDS: MAGNESIUM OXIDE 400 MG TAB (MAG-OX) PO SCH (07:50)
[2019-03-30] MEDS: DOCUSATE SODIUM 100 MG CAP PO SCH (07:50)
[2019-03-30] MEDS: ATORVASTATIN 20 MG TAB PO SCH (07:50)
[2019-03-30] MEDS: MIRALAX *UNIT DOSE* 17GM PACKET PO SCH (07:50)
[2019-03-30] MEDS: HumaLOG INSULIN (NovoLOG) PER UNIT SC SCH ×2 (07:50→12:23)
[2019-03-30] MEDS: CEFDINIR 300 MG CAP (OMNICEF) PO SCH (07:51)
[2019-03-30] MEDS: APIXABAN 5 MG TAB (ELIQUIS) PO SCH (07:51)
[2019-03-30] MEDS: PANTOPRAZOLE 40MG TAB (PROTONIX) PO SCH (07:51)
[2019-03-30] MEDS: FENOFIBRATE 145 MG TAB (TRICOR) PO SCH (07:51)
[2019-03-30] MEDS: BACLOFEN 10 MG TAB PO SCH (07:51)
[2019-03-30] MEDS: GABAPENTIN 300 MG CAP PO SCH (07:51)
[2019-03-30] MEDS ORDERED: CEFD300CAP PO (09:05)
[2019-03-30] MEDS ORDERED: COLA100C5 PO (09:05)
[2019-03-30] MEDS ORDERED: PEG1POW PO (09:05)
[2019-03-30] MEDS ORDERED: BACL10TA2 PO (09:05)
[2019-03-30] MEDS ORDERED: FIRV50SO PO (09:05)
[2019-03-30] MEDS: ONDANSETRON 4MG/2ML VIAL (J2405) IV PRN (09:55)
[2019-03-30 10:28] VITALS: BP 137/70
[2019-03-30 14:29] VITALS: BP 149/80
--- NOTE | 2019-03-30 18:17 | DSES ---
DATE OF ADMISSION: 03/13/2019 DATE OF DISCHARGE: 03/30/2019 PRIMARY CARE PHYSICIAN: Dr. Leo Schreiber ATTENDING PHYSICIAN: Dr. Jem Goff HISTORY: This is a 73-year-old male patient who was admitted to [facility] with loss of appetite, decreased responsiveness, who has a history of urinary tract infection with an indwelling suprapubic catheter. He was evaluated in the emergency room and found to have metabolic encephalopathy, likely secondary to urinary tract infection with acute kidney injury and dehydration. He was admitted to the hospital for further management and monitoring. During his hospitalization, he was treated with intravenous (IV) Rocephin. Patient initially grew out Escherichia (E) coli in his urine culture, although he developed increased work of breathing, and chest x-ray on March 19 showed a new left lower lobe infiltrate. His antibiotics were switched to cefepime and Levaquin for hospital-acquired pneumonia. He has a history of Clostridium (C) difficile infection. He had recently C. difficile treatment as an outpatient, although diarrhea recurred again during his hospitalization, and therefore his vancomycin was resumed. His loose stools have subsequently resolved. His mental status has improved and returned to baseline. He has been receiving physical therapy. He is adamant that he not go to rehabilitation, and his family has coordinated 24-hour care for them at home. I spoke with his daughter, Priscilla, th morning, who confirmed this. She requests that the patient is able to transfer from bed to chair with minimal assist, which physical therapy confirms via documentation and verbal discussion that he is able to do. He also developed a small-bowel obstruction during his hospitalization. He was seen in consultation with Dr. Harris who recommended conservative management with subsequent resolution of this small-bowel obstruction. DISCHARGE DIAGNOSES: 1. Metabolic encephalopathy. 2. Urinary tract infection with indwelling suprapubic catheter. 3. History of Clostridium difficile colitis. 4. Chronic constipation with small-bowel obstruction. 5. Hospital-acquired pneumonia. 6. Chronic atrial fibrillation. 7. Diabetes mellitus, type 2. DISCHARGE MEDICATIONS: - baclofen 10 mg by mouth three times a day - cefdinir 300 mg by mouth twice a day times three days - Colace 100 mg by mouth twice a day - MiraLax one packet by mouth daily - vancomycin 125 mg by mouth every 6 hours - Eliquis 5 mg by mouth twice a day - atorvastatin 40 mg by mouth daily - bisacodyl 10 mg per rectum daily as needed for constipation - clotrimazole topically twice daily as needed for rash or itching - vitamin D 50,000 units weekly - fenofibrate 145 mg daily - furosemide 45 mg daily - gabapentin 600 mg three times a day - Lantus 10 units subcutaneous twice a day - Humalog insulin sliding scale before meals - Bacid one tablet by mouth twice a day - loratadine 10 mg by mouth at bedtime - magnesium oxide 800 mg by mouth twice daily - nitroglycerine sublingual - nystatin powder topically twice daily as needed for rash to abdominal folds - Protonix 40 mg daily - simethicone 180 mg every 6 hours as needed for gas - Vesicare 10 mg by mouth at bedtime - spironolactone 12.5 mg by mouth daily DISCHARGE PLAN: Followup with Dr. Schreiber in 1 week. Activity as tolerated. Diet: Should be consistent-carbohydrate. He will have home healthcare reinstated. He will continue to attend [facility] 3 days weekly.
[2019-03-31] MEDS ORDERED: FLEET ENEMA PR SCH (09:00)
== END 2019-03-30 16:15 | disposition home health service (06) | DRG 698 ==
LOC: EDSEX 09:57 → M ED 09:57 → EDBD 09:57 → M ED INP 13:50 → M MS5PR 16:30
PROVIDERS: ADMIT Internal Medicine; ATTEND Family Medicine
DX: T83.518A Infection and inflammatory reaction due to other urinary catheter, initial encounter (principal); G93.41 Metabolic encephalopathy; J18.9 Pneumonia, unspecified organism; N39.0 Urinary tract infection, site not specified; N17.9 Acute kidney failure, unspecified; K56.609 Unspecified intestinal obstruction, unspecified as to partial versus complete obstruction; I13.0 Hypertensive heart and chronic kidney disease with heart failure and stage 1 through stage 4 chronic kidney disease, or unspecified chronic kidney disease; E87.1 Hypo-osmolality and hyponatremia; A04.72 Enterocolitis due to Clostridium difficile, not specified as recurrent; E11.649 Type 2 diabetes mellitus with hypoglycemia without coma; I48.2 Chronic atrial fibrillation; E86.0 Dehydration; B96.29 Other Escherichia coli [E. coli] as the cause of diseases classified elsewhere; Z79.899 Other long term (current) drug therapy; Z79.4 Long term (current) use of insulin; Z88.2 Allergy status to sulfonamides; Z91.040 Latex allergy status; Z88.5 Allergy status to narcotic agent; Z88.8 Allergy status to other drugs, medicaments and biological substances; E78.5 Hyperlipidemia, unspecified; N40.0 Benign prostatic hyperplasia without lower urinary tract symptoms; G43.909 Migraine, unspecified, not intractable, without status migrainosus; G47.33 Obstructive sleep apnea (adult) (pediatric); D50.9 Iron deficiency anemia, unspecified; G83.9 Paralytic syndrome, unspecified; I50.9 Heart failure, unspecified; Z96.651 Presence of right artificial knee joint; Z96.641 Presence of right artificial hip joint; Z79.01 Long term (current) use of anticoagulants; N31.9 Neuromuscular dysfunction of bladder, unspecified; N18.9 Chronic kidney disease, unspecified; K59.00 Constipation, unspecified; Y84.6 Urinary catheterization as the cause of abnormal reaction of the patient, or of later complication, without mention of misadventure at the time of the procedure

== ENCOUNTER 2019-04-02 14:01 | Inpatient (IN) | payer MEDICARE, MEDICAID ==
[~2019-04-02] VITALS: Ht 165.1 cm; Wt 91.3 kg
[~2019-04-02 14:01] MED LIST changes: +BACL10TA2 PO; +CEFD300CAP PO; +FIRV50SO PO; +FURO40TA2 PO; +LEVO250T12 PO; +PEG1POW PO
--- NOTE | 2019-04-02 15:16 | REP ---
Clinical: Trauma. Comparison: 03/25/2019. Findings: Mediastinum and cardiac silhouette are stable. Examination is limited by portable technique, underpenetration and positioning. Left lower lobe infiltrate cannot be excluded and may be slightly improved when compared to prior examination. Skeletal structures appear grossly intact. Impression: Limited examination. Lower lobe infiltrate may be slightly improved when compared to prior examination. Electronically Signed by Michael Man MD 04/02/2019 03:07 P
[2019-04-02 16:01] LABS: BASO % 0.4 % (0.0-1.0); EOS # 0.1 10^3/uL (0.0-0.50); EOS % 0.7 % (0.0-3.0); HEMATOCRIT 33.2 % (42.0-52.0); LYMPH # 1.8 10^3/uL (1.5-4.5); MEAN CORPUSCULAR HEMOGLOBIN 28.4 pg (27.0-33.0); MEAN CORPUSCULAR HGB CONC 33.1 g/dl (32.0-36.5); MEAN CORPUSCULAR VOLUME 85.8 fl (80.0-96.0); MONO # 0.9 10^3/uL (0.0-0.8); MONO % 9.1 % (0.0-5.0); NEUTROPHILS # 7.1 10^3/uL (1.8-7.7); NEUTROPHILS % 71.4 % (36.0-66.0); RED BLOOD COUNT 3.87 10^6/uL (4.30-6.10); WHITE BLOOD COUNT 9.9 10^3/uL (4.0-10.0)
[2019-04-02] MEDS ORDERED: LIDOCAINE 1% MDV 20ML VIAL As Ordered ONE (16:06)
[2019-04-02 16:34] LABS: ALBUMIN 2.6 GM/DL (3.2-5.2); BILIRUBIN,DIRECT 0.1 MG/DL (0.0-0.2); BILIRUBIN,TOTAL 0.3 MG/DL (0.2-1.0); CALCIUM LEVEL 9.5 MG/DL (8.8-10.2); CK-MB VALUE MASS 1.3 NG/ML (<3.6); CREATININE FOR GFR 1.28 MG/DL (0.70-1.30); GLOMERULAR FILTRATION RATE 58.6 (>42); MB/CK RELATIVE INDEX 1.26 (< OR =4); POTASSIUM SERUM 4.6 MEQ/L (3.5-5.1); THYROID STIMULATING HORMONE 1.94 uIU/ML (0.358-3.740); TOTAL PROTEIN 6.6 GM/DL (6.4-8.2); TROPONIN I 0.06 NG/ML (< 0.10)
[2019-04-02] MEDS: HumaLOG INSULIN (NovoLOG) PER UNIT SC SCH ×2 (17:30→21:00)
[2019-04-02] MEDS ORDERED: GLUCAGON FOR INJ 1 MG VIAL (J1610) SC PRN (17:30)
[2019-04-02] MEDS ORDERED: GLUCOSE 4 GM CHEW TABLET PO PRN (17:30)
[2019-04-02] MEDS ORDERED: DEXTROSE 50% 50 ML SYRINGE IV PRN (17:30)
--- NOTE | 2019-04-02 17:50 | HPEPDOC ---
[facility] Medical History & Physical Date of Admission Apr 02, 2019 Date of Service: Apr 02, 2019 History and Physical CHIEF COMPLAINT: Weakness and vomiting HISTORY OF PRESENT ILLNESS: Patient is a 73-year-old man who was recently admitted 03/13 through 03/30 at that time he had a fairly complicated hospital cour se presenting with lethargy he was treated for catheter related urinary tract infection shortly thereafter he decompensated and there was concern for healthcare associated pneumonia for which she was treated as well with broader spectrum antibiotics. He subsequently developed some diarrhea which to me sounds as so it was antibiotic related and he had a negative GI PCR panel. Given a history of C. difficile he was empirically started on by mouth vancomycin. Upon discharge he is unable to obtain this medication and has not been taking .Further, complicated by small bowel obstruction that was treated with supportive measures and followed by general surgery. He tells me that he went home and his daughter who is bedside and works in the operating room states she is quite surprised that he was allowed to go home but did well initially. He reportedly refused placement options during his last hospitalization. Over the last 48 hours he had had several bowel movements none were clint diarrhea but were soft but he had poor by mouth intake with frequent stools for the time and this a.m. had an episode of vomiting probably come to present to the emergency room. To me at this time he states he feels exhausted and too weak. Otherwise patient denies weight loss, hair loss, headache, visual changes, chest pain, shortness of breath, cough, muscle aches, worsening arthritis, change in mood PAST MEDICAL HISTORY: 1. Essential Hypertension 2. Tzq-qflozsz-cbzwyclal diabetes mellitus 3. Ankylosing spondylitis 4. BPH 5. Migraines 6. Reported congestive heart failure 7. Hyperlipidemia 8. Chronic atrial fibrillation for which he is on chronic anticoagulation with Eliquis, and has undergone ablation with pacemaker placement 9. Multiple prior urinary tract infection 10. History of multilevel disc disease for which he has undergone decompressive laminectomy 11. History of C. difficile colitis due to antibiotic therapy 12. LEEANN, does not use CPAP 13. 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 Neurogenic bladder 16.Postoperative spinal infection HOME MEDICATIONS: Please see below. ALLERGIES: Please see below PAST SURGICAL HISTORY: 1. Left hemicolectomy 2. Right knee replacement 3. Right total hip replacement 5. Multiple hernia repair 6. Bladder biopsy in 2013 7. Supra pubic catheter placement 2013. 8. Thoracic decompressive laminectomy 9. Pacemaker placement SOCIAL HISTORY: Lives with: , Employment: , Tobacco use:. ETOH: , Illicit drug use: , Tattoos done unprofessionally: , CODE STATUS: FAMILY HISTORY:Reviewed and noncontributory REVIEW OF SYSTEMS: 10 systems reviewed and negative other than HPI PHYSICAL EXAMINATION: VITAL SIGNS: Temperature 95.8, pulse 74, respiratory rate 18, blood pressure 121/60, pulse oximetry 96 % on room air. GENERAL: Pleasant frail elderly pale appearing man lying in bed awake alert speaking in complete sentences no acute distress appears fatigued HEENT: Very dry mucous membranes no elevation and CVP CARDIOVASCULAR: S1 S2 regular no additional heart sounds appreciated. RESPIRATORY: Clear to auscultation bilaterally. ABDOMINAL: Bowel sounds present abdomen soft and nontender even to deep palpation EXTREMITIES: No clubbing cyanosis, trace edema, he has a Nuñez catheter in place draining clear yellow urine NEUROLOGICAL: Spontaneously moves all 4 extremities cranial 2 through 12 grossly intact no gross focal deficits appreciated PSYCHOLOGICAL: Appropriate LABORATORY DATA: See below. MICROBIOLOGY: Please see below. IMAGING: Chest x-ray:Limited examination. Lower lobe infiltrate may be slightly improved when compared to prior examination. ASSESSMENT & PLAN: This is a 73-year-old man with dehydration and weakness. PROBLEMS: 1. Dehydration: Clinic rehabilitation exam he appears to be dehydrated although he has some very mild trace edema he certainly has very dry mucous membranes his BUN is elevated his chloride is low sodium is low and has a history of pedal poor by mouth intake and frequent stools. I will hold his diuretic provided with very gentle IV fluid monitoring his sodium value to avoid any aggressive correction. I'm optimistic that with rehydration his energy level improved but will order him for PT OT he may benefit from rehabilitation placement if he is agreeable during this hospitalization. Although he has had frequent stools it is not clint diarrhea he has not had his by mouth vancomycin prior to restarting this I will check a GI PCR panel is certainly at risk. Reportedly he had continue stool softeners despite his frequent stools at this time I will hold those this is an additional potential etiology for his frequent stools. He does not appear to be obstructed and is passing gas from below he only had a single episode of vomiting a provided with a clear liquid diet and monitor. 2.Atrial fibrillation: Continue with anticoagulation s/p pacer no rate controlling agents required 3.Hypertension: I will hold her spironolactone and furosemide 4. Dyslipidemia: Continue his atorvastatin and fenofibrate 5. Chronic pain: Continue home medications 6. Gastroesophageal reflux disease: Continue pantoprazole 7. Paraplegia: Continue with Nuñez and Vesicare DVT PROPHYLAXIS:Anticoagulation DISPOSITION: [facility] floor [facility] inpatient status Vital Signs Vital Signs Date Time Temp Pulse Resp B/P (MAP) Pulse Ox O2 Delivery O2 Flow Rate FiO2 04/02/19 15:31 74 18 121/60 (80) 96 Room Air 04/02/19 14:24 95.8 04/02/19 14:15 99 Laboratory Data Labs 24H Laboratory Tests 2 04/02/19 14:20: Bedside Glucose (Misc Panel) 150H 04/02/19 14:26: Urine Color STRAW, Urine Appearance HAZY, Urine pH 7.0, Urine Specific [place] 1.003, Urine Protein NEGATIVE, Urine Glucose (UA) NEGATIVE, Urine Ketones NEGATIVE, Urine Blood 1+H, Urine Nitrite NEGATIVE, Urine Bilirubin NEGATIVE, Urine Urobilinogen 0.2, Urine Leukocyte Esterase 3+H, Urine WBC (Auto) 24H, Urine RBC (Auto) 41H, Urine Hyaline Casts (Auto) 1, Urine Bacteria (Auto) 1+H, Urine Squamous Epithelial Cells 0, Urine Yeast-Like Cells (Auto) LARGEH, Urine Sperm (Auto) 04/02/19 15:43: Immature Granulocyte % (Auto) 0.4, White Blood Count 9.9, Red Blood Count 3.87L, Hemoglobin 11.0L, Hematocrit 33.2L, Mean Corpuscular Volume 85.8, Mean Corpuscular Hemoglobin 28.4, Mean Corpuscular Hemoglobin Concent 33.1, Red Cell Distribution Width 13.6, Platelet Count , Neutrophils (%) (Auto) 71.4H, Lymphocytes (%) (Auto) 18.0L, Monocytes (%) (Auto) 9.1H, Eosinophils (%) (Auto) 0.7, Basophils (%) (Auto) 0.4, Neutrophils # (Auto) 7.1, Lymphocytes # (Auto) 1.8, Monocytes # (Auto) 0.9H, Eosinophils # (Auto) 0.1, Basophils # (Auto) 0.0, Nucleated Red Blood Cells % (auto) 0.0, Anion Gap 5L, Glomerular Filtration Rate 58.6, Calcium Level 9.5, Aspartate Amino Transf (AST/SGOT) 19, Alanine Aminotransferase (ALT/SGPT) 12, Alkaline Phosphatase 78, Total Bilirubin 0.3, Direct Bilirubin 0.1, Total Creatine Kinase 103, Creatine Kinase MB 1.3, Creatine Kinase MB Relative Index 1.26, Troponin I 0.06, Total Protein 6.6, Albumin 2.6L, Albumin/Globulin Ratio 0.65L, Thyroid Stimulating Hormone (TSH) 1.940 CBC/BMP Laboratory Tests 04/02/19 15:43 Red Blood Count 3.87 L, Mean Corpuscular Volume 85.8, Mean Corpuscular Hemoglobin 28.4, Mean Corpuscular Hemoglobin Concent 33.1, Red Cell Distribution Width 13.6, Neutrophils (%) (Auto) 71.4 H, Lymphocytes (%) (Auto) 18.0 L, Monocytes (%) (Auto) 9.1 H, Eosinophils (%) (Auto) 0.7, Basophils (%) (Auto) 0.4, Neutrophils # (Auto) 7.1, Lymphocytes # (Auto) 1.8, Monocytes # (Auto) 0.9 H, Eosinophils # (Auto) 0.1, Basophils # (Auto) 0.0 Microbiology Microbiology 04/02/19 Urine Culture, Received Pending Home Medications Scheduled Apixaban (Eliquis) 5 Mg Tab, 5 MG PO BID Atorvastatin Calcium (Atorvastatin Calcium) 40 Mg Tab, 40 MG PO DAILY Baclofen (Baclofen) 10 Mg Tablet, 10 MG PO TID Cefdinir (Cefdinir) 300 Mg Capsule, 300 MG PO BID Docusate Sodium (Colace) 100 Mg Capsule, 100 MG PO BID Ergocalciferol (Vitamin D2) (Drisdol) 50,000 Unit Capsule, 50,000 UNIT PO QWEEK SUNDAYS Fenofibrate Nanocrystallized (Fenofibrate) 145 Mg Tab, 145 MG PO DAILY Furosemide (Furosemide) 40 Mg Tablet, 40 MG PO DAILY Gabapentin (Gabapentin) 600 Mg Tab, 600 MG PO TID Insulin Glargine,Hum.rec.anlog (Lantus Solostar) 100 Unit/Ml Inj, 10 UNITS SC BID 20 in am 10 at night Insulin Human Lispro (Humalog) 1 Units/0.01 Ml Inj, 1 DOSE SC AC PER SLIDING SCALE L.acidoph/L.bulg/B.bif/S.therm (Bacid Caplet) 1 Tab Tab, 1 TAB PO BID Loratadine (Loratadine) 10 Mg Tab, 10 MG PO QHS Magnesium Oxide (Magnesium Oxide) 400 Mg Tab, 800 MG PO BID Pantoprazole Sodium (Pantoprazole Sodium) 40 Mg Tab, 40 MG PO DAILY Polyethylene Glycol 3350 (Polyethylene Glycol 3350) 17 Gm Powd.pack, 1 PKT PO DAILY Solifenacin Succinate (Vesicare) 10 Mg Tab, 10 MG PO QHS Spironolactone (Spironolactone) 25 Mg Tablet, 12.5 MG PO DAILY Vancomycin HCl (Firvanq) 50 Mg/1 Ml Soln.recon, 125 MG PO Q6H Scheduled PRN Bisacodyl (Bisacodyl) 10 Mg Sup, 10 MG PA DAILY PRN for CONSTIPATION Clotrimazole (Clotrimazole) 1 % Cre, 1 DOSE TOP BID PRN for RASH/ITCHING APPLY TO GROIN AREA Nitroglycerin (Nitrostat) 0.4 Mg Subl, 0.4 MG SL NITRO PRN for CHEST PAIN Nystatin (Nystatin Powder) 100,000 Unit/Gm Pow, 1 DOSE TOP BID PRN for RASH/ITCHING APPLY TO GROIN AREA Simethicone (Simethicone) 180 Mg Capsule, 180 MG PO QIDP PRN for GAS PAIN Allergies Coded Allergies: Sulfa (Sulfonamide Antibiotics) (Verified Allergy, Intermediate, hives, 12/20/18) alcohol (Verified Allergy, Intermediate, soap rash, 12/20/18) carisoprodol (Verified Allergy, Intermediate, hives, 12/20/18) gum mastic (Verified Allergy, Intermediate, soap rash, 12/20/18) purell mosture therapy latex (Verified Allergy, Intermediate, rash, 12/20/18) methyl salicylate (Verified Allergy, Intermediate, soap rash, 12/20/18) methylparaben (Verified Allergy, Intermediate, hives, 12/20/18) morphine (Verified Allergy, Intermediate, HIVES RASH AT SITE LIKELY HISTAMINE RELEASE, 12/20/18) storax (Verified Allergy, Intermediate, soap rash, 12/20/18) SOO Inhibitors (Verified Allergy, Unknown, 12/20/18) TAPE (Verified Allergy, Unknown, STERISTRIPS, 02/10/18) hydrochlorothiazide (Verified Allergy, Unknown, unsure of reaction, 12/20/18) nitrofurantoin (Verified Adverse Reaction, Mild, diarrhea, 12/20/18) A-FIB/CHADSVASC A-FIB History Current/History of A-Fib/PAF?: Yes Current PO Anticoag Therapy: Yes NINA GUTIERREZ MD Apr 02, 2019 17:50
[2019-04-02] MEDS ORDERED: CEFD300CAP PO (17:52)
[2019-04-02] MEDS ORDERED: BACL10TA2 PO (17:52)
[2019-04-02] MEDS ORDERED: LANTINJ4 SC (17:52)
[2019-04-02] MEDS ORDERED: MIRA3350 PO (17:52)
[2019-04-02] MEDS: NS 1,000 ML IV SCH (18:15)
[2019-04-02 18:48] LABS: MAGNESIUM LEVEL 2.1 MG/DL (1.8-2.4)
--- NOTE | 2019-04-02 20:25 | ECGEPIP ---
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
[2019-04-02 22:00] VITALS: BP 133/66
[2019-04-02] MEDS: LEVEMIR (INSULIN DETEMIR) 1 UNITS/0.01ML SC SCH (22:16)
[2019-04-02 23:10] LABS: CALCIUM LEVEL 9.2 MG/DL (8.8-10.2); CREATININE FOR GFR 1.37 MG/DL (0.70-1.30); GLOMERULAR FILTRATION RATE 54.2 (>42); POTASSIUM SERUM 4.4 MEQ/L (3.5-5.1)
[2019-04-03 06:00] VITALS: BP 100/58
[2019-04-03 06:23] LABS: HEMATOCRIT 27.1 % (42.0-52.0); MEAN CORPUSCULAR HEMOGLOBIN 28.2 pg (27.0-33.0); MEAN CORPUSCULAR HGB CONC 32.8 g/dl (32.0-36.5); MEAN CORPUSCULAR VOLUME 85.8 fl (80.0-96.0); PLATELET COUNT, AUTOMATED 207 10^3/uL (150-450); RED BLOOD COUNT 3.16 10^6/uL (4.30-6.10); WHITE BLOOD COUNT 8.6 10^3/uL (4.0-10.0)
[2019-04-03 06:24] VITALS: BP 98/56
[2019-04-03 06:31] LABS: HEMOGLOBIN 8.9 g/dl (13.5-17.5)
[2019-04-03 06:41] LABS: BLOOD UREA NITROGEN 19 MG/DL (7-18); CALCIUM LEVEL 9.3 MG/DL (8.8-10.2); CARBON DIOXIDE LEVEL 34 MEQ/L (21-32); CHLORIDE LEVEL 94 MEQ/L (98-107); CREATININE FOR GFR 1.25 MG/DL (0.70-1.30); GLOMERULAR FILTRATION RATE > 60.0 (>42); GLUCOSE, FASTING 77 MG/DL (70-100); POTASSIUM SERUM 4.4 MEQ/L (3.5-5.1); SODIUM LEVEL 131 MEQ/L (136-145)
[2019-04-03 07:44] VITALS: BP 100/60
[2019-04-03] MEDS: HumaLOG INSULIN (NovoLOG) PER UNIT SC SCH ×4 (08:33→20:10)
--- NOTE | 2019-04-03 08:46 | REP ---
Procedure: PICC line insertion with Alejandra The procedure was performed under the direct supervision of Dr. Hollins. The risks and benefits of the procedure were explained to the patient and informed consent was obtained. The right brachial vein was localized using ultrasound guidance. The skin was prepped and draped in a sterile fashion. 2% lidocaine was used as a local anesthetic. Using ultrasound guidance the brachial vein was cannulated and a 0.018 guidewire was inserted and advanced to the SVC using fluoroscopic guidance. The needle was removed and a 5.5 Chinese dilator and peel-away sheath was inserted over the guide wire. A 5.5 Chinese dual lumen catheter was cut to length of 44 cm. The dilator was removed and the catheter was inserted over the guide wire with the tip ending in the SVC. The peel-away sheath was removed and the catheter was flushed with heparinized saline as per Hospital protocol. The catheter was affixed to the skin and a sterile dressing was applied. The patient tolerated the procedure well and there were no immediate complications. 0.3 minutes of of fluoro time was utilized for this procedure. Reviewed by DAYO Velasquez 04/02/2019 05:26 P Electronically Signed by Jean Marie Hollins MD 04/03/2019 08:37 A
--- NOTE | 2019-04-03 09:41 | IPNPDOC ---
Subjective Date Seen The patient was seen on 04/03/19. Subjective Chief Complaint/HPI abdominal pain, right lower but also everywhere. Constitutional: Denies: Chills ENT: Denies: Head Aches Pulmonary: Denies: Dyspnea, Cough Cardiovascular: Denies: Chest Pain, Palpitations Gastrointestinal: Reports: Abdominal Pain (RLQ mostly); Denies: Nausea, Vomiting Neurological: Denies: Numbness, Change in speech Objective Physical Examination General Exam: Positive: Alert ENT Exam: Positive: Atraumatic Neck Exam: Positive: Supple; Negative: thyromegaly Chest Exam: Positive: Clear to auscultation; Negative: Rales Heart Exam: Positive: Rate Normal; Negative: Murmurs Abdomen Exam: Positive: BS Hypoactive, Soft, Tenderness (mostly RLQ, ) Extremity Exam: Positive: Edema (soft doughey edema lower extremities. somewhat tender over shins also.) Skin Exam: Negative: Rash Psych Exam: Positive: Mental status NL Assessment /Plan Problems (1) Abdominal pain Status: Acute Response to Treatment: Stable Problem Text: mostly RLQ. will investigate with CT. continue clear liquid diet for now. (2) Hyponatremia Status: Chronic Problem Text: in setting of edema and suggestion of fluid expanded state. li myla low oncotic pressure contributes to edema. (3) Indwelling Nuñez catheter present Status: Chronic Response to Treatment: Stable (4) Physical deconditioning Status: Chronic Response to Treatment: Stable Problem Text: PT needed. (5) DM2 (diabetes mellitus, type 2) Status: Chronic (6) Chronic a-fib Status: Chronic Response to Treatment: Stable Problem Text: will continue Eliquis unless bowel obstruction develops then change to Lovenox pending eval and Gen Surg Plan/VTE VTE Prophylaxis Ordered?: Yes Plan Anticipated Discharge: Shelter VS, I&O, 24H, Fishbone Vital Signs/I&O Vital Signs Date Time Temp Pulse Resp B/P (MAP) Pulse Ox O2 Delivery O2 Flow Rate FiO2 04/03/19 07:44 100/60 (73) 04/03/19 06:24 98.8 87 93 04/03/19 06:00 20 04/02/19 18:14 Room Air 04/02/19 14:15 99 I&O- Last 24 Hours up to 6 AM 04/03/19 06:00 Intake Total 0 ml Output Total 1350 ml Balance -1350 ml Laboratory Data 24H LABS Laboratory Tests 2 04/02/19 14:20: Bedside Glucose (Misc Panel) 150H 04/02/19 14:26: Urine Color STRAW, Urine Appearance HAZY, Urine pH 7.0, Urine Specific [place] 1.003, Urine Protein NEGATIVE, Urine Glucose (UA) NEGATIVE, Urine Ketones NEGATIVE, Urine Blood 1+H, Urine Nitrite NEGATIVE, Urine Bilirubin NEGATIVE, U rine Urobilinogen 0.2, Urine Leukocyte Esterase 3+H, Urine WBC (Auto) 24H, Urine RBC (Auto) 41H, Urine Hyaline Casts (Auto) 1, Urine Bacteria (Auto) 1+H, Urine Squamous Epithelial Cells 0, Urine Yeast-Like Cells (Auto) LARGEH, Urine Sperm (Auto) 04/02/19 15:43: Immature Granulocyte % (Auto) 0.4, White Blood Count 9.9, Red Blood Count 3.87L, Hemoglobin 11.0L, Hematocrit 33.2L, Mean Corpuscular Volume 85.8, Mean Corpuscular Hemoglobin 28.4, Mean Corpuscular Hemoglobin Concent 33.1, Red Cell Distribution Width 13.6, Platelet Count , Neutrophils (%) (Auto) 71.4H, Lymphocytes (%) (Auto) 18.0L, Monocytes (%) (Auto) 9.1H, Eosinophils (%) (Auto) 0.7, Basophils (%) (Auto) 0.4, Neutrophils # (Auto) 7.1, Lymphocytes # (Auto) 1.8, Monocytes # (Auto) 0.9H, Eosinophils # (Auto) 0.1, Basophils # (Auto) 0.0, Nucleated Red Blood Cells % (auto) 0.0, Anion Gap 5L, Glomerular Filtration Rate 58.6, Calcium Level 9.5, Magnesium Level 2.1, Aspartate Amino Transf (AST/SGOT) 19, Alanine Aminotransferase (ALT/SGPT) 12, Alkaline Phosphatase 78, Total Bilirubin 0.3, Direct Bilirubin 0.1, Total Creatine Kinase 103, Creatine Kinase MB 1.3, Creatine Kinase MB Relative Index 1.26, Troponin I 0.06, Total Protein 6.6, Albumin 2.6L, Albumin/Globulin Ratio 0.65L, Thyroid Stimulating Hormone (T SH) 1.940 04/02/19 18:09: Bedside Glucose (Misc Panel) 109 04/02/19 22:37: Anion Gap 4L, Glomerular Filtration Rate 54.2, Blood Urea Nitrogen 20H, Creatinine 1.37H, Sodium Level 129L, Potassium Level 4.4, Chloride Level 93L, Carbon Dioxide Level 32, Calcium Level 9.2 04/03/19 05:46: Anion Gap 3L, Glomerular Filtration Rate > 60.0, Blood Urea Nitrogen 19H, Creatinine 1.25, Sodium Level 131L, Potassium Level 4.4, Chloride Level 94L, Car bon Dioxide Level 34H, Calcium Level 9.3, Nucleated Red Blood Cells % (auto) 0.0 CBC/BMP Laboratory Tests 04/02/19 15:43 Red Blood Count 3.87 L, Mean Corpuscular Volume 85.8, Mean Corpuscular Hemoglobin 28.4, Mean Corpuscular Hemoglobin Concent 33.1, Red Cell Distribution Width 13.6, Neutrophils (%) (Auto) 71.4 H, Lymphocytes (%) (Auto) 18.0 L, Monocytes (%) (Auto) 9.1 H, Eosinophils (%) (Auto) 0.7, Basophils (%) (Auto) 0.4, Neutrophils # (Auto) 7.1, Lymphocytes # (Auto) 1.8, Monocytes # (Auto) 0.9 H, Eosinophils # (Auto) 0.1, Basophils # (Auto) 0.0 04/02/19 22:37 Calcium Level 9.2 04/03/19 05:46 Red Blood Count 3.16 L, Mean Corpuscular Volume 85.8, Mean Corpuscular Hemoglobin 28.2, Mean Corpuscular Hemoglobin Concent 32.8, Red Cell Distribution Width 13.7, Calcium Level 9.3 Microbiology Microbiology 04/02/19 Urine Culture, Received Pending Lane Mina MD Apr 03, 2019 09:40
[2019-04-03] MEDS: GASTROGRAFIN SOLUTION 30ML PO SCH ×2 (10:19→10:45)
[2019-04-03] MEDS: NS 1,000 ML IV SCH (10:20)
[2019-04-03] MEDS: APIXABAN 5 MG TAB (ELIQUIS) PO SCH ×2 (10:20→20:10)
[2019-04-03] MEDS: LEVEMIR (INSULIN DETEMIR) 1 UNITS/0.01ML SC SCH ×2 (10:20→20:10)
[2019-04-03] MEDS ORDERED: ISOVUE-370 76% 100ML VIAL (Q9967) As Ordered ONE (11:14)
[2019-04-03 11:33] LABS: OSMOLALITY URINE 331 MOSM/KG (500-800)
[2019-04-03 12:00] LABS: SODIUM,RANDOM URINE 58 MEQ/L
--- NOTE | 2019-04-03 12:27 | REP ---
Clinical: Right lower quadrant pain. Technique: Axial contrast enhanced images from the lung bases to the pubic symphysis using oral (per protocol) and 100 ml Isovue 370 intravenous contrast material with coronal and sagittal re-formations. Comparison: 03/24/2019. Findings: Diffusely dilated fluid-filled small bowel is appreciated essentially throughout the abdomen and pelvis along with moderate to significant fecal stasis and presumed constipation through the colon. Normal appendix identified in the right lower quadrant. No free air. No significant ascites. Differential diagnosis includes ileus versus partial obstruction and correlation is required. No discrete point of transition is identified. Liver, spleen, atrophic pancreas with parenchymal calcifications, gallbladder, bilateral adrenal glands and kidneys are relatively stable. Kidneys demonstrate cortical thinning consistent with chronic medical renal disease and a small subcentimeter right renal cyst is identified without perinephric stranding or hydroureteronephrosis. IVC filter identified. He has pain ventral hernia repair with mesh is appreciated along with a small curvilinear fluid collection in the overlying subcutaneous tissue which remains unchanged. Osseous structures demonstrate degenerative changes. Limited evaluation of the lung bases demonstrate small left pleural effusion and left basilar atelectasis. Impression: 1. Diffusely dilated fluid-filled small bowel along with significant fecal stasis throughout the colon similar to prior examination. Differential diagnosis includes partial bowel obstruction as well as ileus. No ascites or free air. No obvious point of transition noted. 2. Remainder examination demonstrates chronic abdominopelvic findings which remain stable. 3. Small left effusion and left basilar atelectasis. Electronically Signed by Michael Man MD 04/03/2019 12:18 P
[2019-04-03] MEDS ORDERED: BISACODYL 10 MG SUPP PR PRN (13:30)
[2019-04-03] MEDS: ONDANSETRON 4MG/2ML VIAL (J2405) IV PRN ×2 (13:37→17:36)
[2019-04-03 14:00] VITALS: BP 135/68
[2019-04-03] MEDS: BISACODYL 10 MG SUPP PR ONE ×2 (18:45→19:41)
[2019-04-03] MEDS ORDERED: ONDANSETRON 4MG/2ML VIAL (J2405) IV PRN (18:45)
--- NOTE | 2019-04-03 19:50 | REP ---
Clinical: Pain. Technique: AP and cross-table lateral views of the right knee. 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 Surrounding soft tissue swelling noted along with joint/suprapatellar effusion. No obvious acute fracture. Impression: Degenerative changes, swelling and effusion. No obvious acute fracture. Electronically Signed by Michael Man MD 04/03/2019 07:41 P
--- NOTE | 2019-04-03 19:51 | REP ---
Clinical: Pain. Technique: AP and lateral views of the right tibia / fibula. Findings: Age-related osteodystrophy is appreciated along with moderate arthritic changes to the knee and visualized ankle joint. No obvious acute fracture or dislocation. 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 No obvious acute fracture or dislocation. Electronically Signed by Michael Man MD 04/03/2019 07:43 P
[2019-04-03] MEDS: D5W/LR 1,000 ML IV SCH (19:58)
[2019-04-03 20:15] VITALS: BP 135/67
[2019-04-04 05:55] VITALS: BP 122/56
[2019-04-04 06:34] LABS: HEMATOCRIT 23.8 % (42.0-52.0); HEMOGLOBIN 7.8 g/dl (13.5-17.5); MEAN CORPUSCULAR HEMOGLOBIN 28.6 pg (27.0-33.0); MEAN CORPUSCULAR HGB CONC 32.8 g/dl (32.0-36.5); MEAN CORPUSCULAR VOLUME 87.2 fl (80.0-96.0); PLATELET COUNT, AUTOMATED 180 10^3/uL (150-450); RED BLOOD COUNT 2.73 10^6/uL (4.30-6.10); WHITE BLOOD COUNT 7.9 10^3/uL (4.0-10.0)
[2019-04-04 06:57] LABS: ALT/SGPT 8 U/L (12-78); BILIRUBIN,TOTAL 0.4 MG/DL (0.2-1.0); BLOOD UREA NITROGEN 17 MG/DL (7-18); CALCIUM LEVEL 8.5 MG/DL (8.8-10.2); CARBON DIOXIDE LEVEL 31 MEQ/L (21-32); CHLORIDE LEVEL 97 MEQ/L (98-107); CREATININE FOR GFR 1.13 MG/DL (0.70-1.30); GLOMERULAR FILTRATION RATE > 60.0 (>42); GLUCOSE, FASTING 145 MG/DL (70-100); LIPASE 17 U/L (73-393); POTASSIUM SERUM 4.3 MEQ/L (3.5-5.1); SODIUM LEVEL 131 MEQ/L (136-145); TOTAL PROTEIN 5.8 GM/DL (6.4-8.2)
[2019-04-04] MEDS: LEVEMIR (INSULIN DETEMIR) 1 UNITS/0.01ML SC SCH ×2 (08:41→21:06)
[2019-04-04] MEDS: HumaLOG INSULIN (NovoLOG) PER UNIT SC SCH ×4 (08:41→21:00)
--- NOTE | 2019-04-04 08:55 | IPNPDOC ---
Subjective Date Seen The patient was seen on 04/04/19. Subjective Chief Complaint/HPI foot and abdominal pain Constitutional: Denies: Chills ENT: Denies: Head Aches Cardiovascular: Denies: Chest Pain, Orthopnea Gastrointestinal: Reports: Nausea, Abdominal Pain (localizes mostly to RLQ) Musculoskeletal: Reports: Foot Pain (right foot.) Psych: Reports: Mood Normal Objective Physical Examination General Exam: Positive: Alert Eye Exam: Positive: PERRLA ENT Exam: Positive: Atraumatic Neck Exam: Positive: Supple; Negative: thyromegaly Chest Exam: Positive: Clear to auscultation; Negative: Rales Heart Exam: Positive: Rate Normal; Negative: Murmurs Abdomen Exam: Positive: BS Hypoactive, Soft, Tenderness (mostly RLQ, ) Extremity Exam: Positive: Edema (soft doughey edema lower extremities. 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 No improvement with use of Dulcolax supp., consider enema but will consult Gen Surg before ordering. mostly RLQ. will investigate with CT. continue clear liquid diet for now. (2) Hyponatremia Status: Chronic Response to Treatment: Stable Problem Text: Still 131, stable. in setting of edema and suggestion of fluid expanded state. likely low oncotic pressure contributes to edema. (3) Anemia Status: Acute Response to Treatment: Stable, Worse Problem Text: On Eliquis so GI blood loss is suspected. Will check hemoccult. Surgical consult requested. Hgb 7.8 this am so will transfuse one unit PRBC. (4) Indwelling Nuñez catheter present Status: Chronic Response to Treatment: Stable (5) Physical deconditioning Status: Chronic Response to Treatment: Stable Problem Text: PT needed. (6) DM2 (diabetes mellitus, type 2) Status: Chronic Response to Treatment: Stable (7) Chronic a-fib Status: Chronic Response to Treatment: Stable Problem Text: 04/04: due to drop in Hgb, holding Eliquis until demonstration of Heme neg stool and Surgical eval of abdomen. will continue Eliquis unless bowel obstruction develops then change to Lovenox pending eval and Gen Surg (8) Right foot pain Status: Chronic Response to Treatment: Stable Problem Text: Per patient and family, Dr. Ritchie had planned for cT of foot. Will order and attempt to confirm with [employer] that this is the correct test that Dr. Ritchie had planned. Plan/VTE VTE Prophylaxis Ordered?: Yes Plan Anticipated Discharge: Alf VS, I&O, 24H, Fishbone Vital Signs/I&O Vital Signs Date Time Temp Pulse Resp B/P (MAP) Pulse Ox O2 Delivery O2 Flow Rate FiO2 04/04/19 05:55 98.5 88 20 122/56 (78) 97 04/02/19 18:14 Room Air 04/02/19 14:15 99 I&O- Last 24 Hours up to 6 AM 04/04/19 06:00 Intake Total 2730 ml Output Total 1150 ml Balance 1580 ml Laboratory Data 24H LABS Laboratory Tests 2 04/03/19 10:42: Urine Random Osmolality 331L, Urine Random Sodium 58, Osmolality 280 04/04/19 06:17: Nucleated Red Blood Cells % (auto) 0.0, Anion Gap 3L, Glomerular Filtration Rate > 60.0, Blood Urea Nitrogen 17, Creatinine 1.13, Sodium Level 131L, Potassium Level 4.3, Chloride Level 97L, Carbon Dioxide Level 31, Calcium Level 8.5L, Asp artate Amino Transf (AST/SGOT) 17, Alanine Aminotransferase (ALT/SGPT) 8L, Alkaline Phosphatase 54, Total Bilirubin 0.4, Total Protein 5.8L, Albumin 2.0#L, Albumin/Globulin Ratio 0.53L, Lipase 17L CBC/BMP Laboratory Tests 04/04/19 06:17 Red Blood Count 2.73 L, Mean Corpuscular Volume 87.2, Mean Corpuscular Hemoglobin 28.6, Mean Corpuscular Hemoglobin Concent 32.8, Red Cell Distribution Width 13.8, Calcium Level 8.5 L, Aspartate Amino Transf (AST/SGOT) 17, Alanine Aminotransferase (ALT/SGPT) 8 L, Alkaline Phosphatase 54, Total Bilirubin 0.4, Total Protein 5.8 L, Albumin 2.0 #L Microbiology Microbiology 04/02/19 Urine Culture - Final, Complete Lane Mina MD Apr 04, 2019 08:54
[2019-04-04] MEDS: ONDANSETRON 4MG/2ML VIAL (J2405) IV PRN ×2 (09:12→16:26)
[2019-04-04] MEDS ORDERED: ISOVUE-370 76% 100ML VIAL (Q9967) As Ordered ONE (09:51)
[2019-04-04] MEDS ORDERED: MAGNESIUM CITRATE 300 ML BTL PO ONE (11:45)
--- NOTE | 2019-04-04 11:49 | REP ---
CT of the right foot with IV contrast: Comparison is the right foot CT dated 10/04/2017. Axial images are acquired helical scanning and a reformatted sagittal and coronal projections. There is diffuse circumferential soft tissue edema. There are no focal soft tissue fluid collections to suggest abscess or hematoma. There is diffuse demineralization compatible with osteoporosis, unchanged. There are no lytic, blastic or destructive skeletal changes to suggest osteomyelitis. No fractures are identified. There is hallux valgus. Impression: Diffuse demineralization compatible with osteoporosis. There are no lytic, blastic or destructive skeletal changes to suggest osteomyelitis. Diffuse soft tissue edema. There are no focal soft tissue fluid collections to suggest abscess or hematoma. No fracture or dislocation. Electronically Signed by John Lin MD 04/04/2019 11:41 A
[2019-04-04 14:00] VITALS: BP 126/61
[2019-04-04] MEDS ORDERED: ACETAMINOPHEN TAB 650MG DOSE (2X325MG) PO PRN (16:00)
[2019-04-04] MEDS: D5W/LR 1,000 ML IV SCH (16:27)
[2019-04-04 16:51] LABS: HEMATOCRIT 27.9 % (42.0-52.0); HEMOGLOBIN 9.2 g/dl (13.5-17.5); MEAN CORPUSCULAR HEMOGLOBIN 28.4 pg (27.0-33.0); MEAN CORPUSCULAR VOLUME 86.1 fl (80.0-96.0); PLATELET COUNT, AUTOMATED 198 10^3/uL (150-450); RED BLOOD COUNT 3.24 10^6/uL (4.30-6.10); WHITE BLOOD COUNT 8.5 10^3/uL (4.0-10.0)
[2019-04-04] MEDS: SODIUM CHLORIDE 0.9% INJ 10 ML SYR IV SCH (17:31)
[2019-04-04 22:00] VITALS: BP 131/66
[2019-04-05] MEDS: D5W/LR 1,000 ML IV SCH (05:43)
[2019-04-05] MEDS: SODIUM CHLORIDE 0.9% INJ 10 ML SYR IV SCH ×2 (05:44→18:36)
[2019-04-05 05:56] LABS: HEMOGLOBIN 8.9 g/dl (13.5-17.5); MEAN CORPUSCULAR HEMOGLOBIN 28.3 pg (27.0-33.0); MEAN CORPUSCULAR VOLUME 85.7 fl (80.0-96.0); PLATELET COUNT, AUTOMATED 170 10^3/uL (150-450); RED BLOOD COUNT 3.15 10^6/uL (4.30-6.10); WHITE BLOOD COUNT 6.7 10^3/uL (4.0-10.0)
[2019-04-05 06:00] VITALS: BP 157/74
[2019-04-05 06:24] LABS: BLOOD UREA NITROGEN 15 MG/DL (7-18); CALCIUM LEVEL 8.9 MG/DL (8.8-10.2); CARBON DIOXIDE LEVEL 32 MEQ/L (21-32); CHLORIDE LEVEL 96 MEQ/L (98-107); CREATININE FOR GFR 0.92 MG/DL (0.70-1.30); GLOMERULAR FILTRATION RATE > 60.0 (>42); GLUCOSE, FASTING 141 MG/DL (70-100); POTASSIUM SERUM 4.1 MEQ/L (3.5-5.1); SODIUM LEVEL 132 MEQ/L (136-145)
[2019-04-05] MEDS: ONDANSETRON 4MG/2ML VIAL (J2405) IV PRN (08:23)
[2019-04-05] MEDS: HumaLOG INSULIN (NovoLOG) PER UNIT SC SCH ×4 (08:23→21:00)
[2019-04-05] MEDS: LEVEMIR (INSULIN DETEMIR) 1 UNITS/0.01ML SC SCH ×2 (08:24→21:17)
[2019-04-05] MEDS ORDERED: MIRALAX *UNIT DOSE* 17GM PACKET PO PRN (10:15)
[2019-04-05] MEDS: SODIUM CHLORIDE 0.9% INJ 10 ML SYR IV PRN (10:24)
--- NOTE | 2019-04-05 10:31 | IPNPDOC ---
Subjective Date Seen The patient was seen on 04/05/19. Subjective Chief Complaint/HPI less pain, but still some nausea. continue to report RLE pain. 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 will try to advance diet. was seen by Dr. Mead this am. Had multiple stools after receiving the Mag Citrate 04/04: CT shows SBO pattern with descriptions of surgical mesh and comment about fecal stasis. No improvement with use of Dulcolax supp., consider enema but will consult Gen Surg before ordering. mostly RLQ. will investigate with CT. continue clear liquid diet for now. (2) Hyponatremia Status: Chronic Response to Treatment: Stable, Improving Problem Text: 04/05: sodium 132 this am. Still 131, stable. in setting of edema and suggestion of fluid expanded state. likely low oncotic pressure contributes to edema. (3) Anemia Status: Acute Response to Treatment: Stable Problem Text: 04/05: slight dip since yesterday, may be due to hydration. He had colonoscopy 12/2018 Dr. Arechiga, so suspect upper GI source. He has been on pantoprazole 40 daily. Continuing to hold Eliquis. Resume pantoprazole at 40 bid On Eliquis so GI blood loss is suspected. Will check hemoccult. Surgical consult requested. Hgb 7.8 this am so will transfuse one unit PRBC. (4) Indwelling Nuñez catheter present Status: Chronic Response to Treatment: Stable (5) Physical deconditioning Status: Chronic Response to Treatment: Stable Problem Text: PT needed. (6) DM2 (diabetes mellitus, type 2) Status: Chronic Response to Treatment: Stable (7) Chronic a-fib Status: Chronic Response to Treatment: Stable Problem Text: 04/05: stable but patient family requesting consult with Dr. Jin. Will request. 04/04: due to drop in Hgb, holding Eliquis until demonstration of Heme neg stool and Surgical eval of abdomen. 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 Increased pain perception may be related to stopping gabapentin at admission so will resume at usual dose. Per patient and family, Dr. Ritchie had planned for cT of foot. Will order and attempt to confirm with [employer] that this is the correct test that Dr. Ritchie had planned. (9) Edema due to hypoalbuminemia Status: Chronic Response to Treatment: Stable Problem Text: resuming diet, ensure or similar also recommended. Plan/VTE VTE Prophylaxis Ordered?: No VTE Exclusion Mechanical Proph: Other (leg pain.) VTE Exclusion Pharmacological: Active Bleeding Plan Anticipated Discharge: Alf VS, I&O, 24H, [facility] Vital Signs/I&O Vital Signs Date Time Temp Pulse Resp B/P (MAP) Pulse Ox O2 Delivery O2 Flow Rate FiO2 04/05/19 06:00 97.8 75 18 157/74 (101) 97 04/02/19 18:14 Room Air 04/02/19 14:15 99 I&O- Last 24 Hours up to 6 AM 04/05/19 06:00 Intake Total 1898 ml Output Total 2150 ml Balance -252 ml Laboratory Data 24H LABS Laboratory Tests 2 04/04/19 16:36: Nucleated Red Blood Cells % (auto) 0.0 04/05/19 05:42: Nucleated Red Blood Cells % (auto) 0.0 04/05/19 05:43: Anion Gap 4L, Glomerular Filtration Rate > 60.0, Blood Urea Nitrogen 15, Creatinine 0.92, Sodium Level 132L, Potassium Level 4.1, Chloride Level 96L, Carbon Dioxide Level 32, Calcium Level 8.9 CBC/BMP Laboratory Tests 04/04/19 16:36 Red Blood Count 3.24 L, Mean Corpuscular Volume 86.1, Mean Corpuscular Hemoglobin 28.4, Mean Corpuscular Hemoglobin Concent 33.0, Red Cell Distribution Width 13.7 04/05/19 05:42 Red Blood Count 3.15 L, Mean Corpuscular Volume 85.7, Mean Corpuscular Hemoglobin 28.3, Mean Corpuscular Hemoglobin Concent 33.0, Red Cell Distribution Width 13.6 04/05/19 05:43 Calcium Level 8.9 Microbiology Microbiology 04/04/19 Stool Occult Blood (CYNDIE) - Final, Complete 04/02/19 Urine Culture - Final, Complete Lane Mina MD Apr 05, 2019 10:31
--- NOTE | 2019-04-05 11:05 | REP ---
Clinical: Ileus. Technique: Limited multiple supine and cross-table lateral views of the abdomen and pelvis including frontal view of the chest. Findings: Frontal view of the chest demonstrates chronic changes along with perihilar and left lower lobe infiltrates. Bowel gas pattern demonstrates moderate fecal stasis and findings to suggest ileus. No bowel obstruction. IVC filter and right hip replacement noted. Skeletal structures demonstrate degenerative changes. Surgical clips noted no overlying the left mid abdomen. Impression: 1. Frontal chest suggests perihilar and left lower lobe infiltrates. 2. Fecal stasis and ileus pattern. Electronically Signed by Michael Man MD 04/05/2019 10:56 A
[2019-04-05] MEDS ORDERED: MAGNESIUM CITRATE 300 ML BTL PO ONE (12:00)
--- NOTE | 2019-04-05 12:12 | CR ---
DATE OF CONSULTATION: 04/05/2019 REASON FOR CONSULTATION: His ileus versus bowel obstruction. HISTORY OF PRESENT ILLNESS: The patient 73 year-old male with a complicated past medical history recently admitted to the hospital from03/13/2019 to 03/30/2019 due to a urinary tract infection (UTI) and pneumonia as well as a small bowel obstruction. He was discharged on 03/30/2019 and return the hospital on 04/02/2019 due to dehydration and weakness and that is his main concern. Prior to discharge he was having bowel movements and CT imaging had shown that his obstruction had resolved. However, when he returned to the hospital imaging shows that he is full of stool again showing signs of generalized ileus with a lot of fecal stasis. He does have a history of paralysis in the past resulting in neurogenic bladder and likely has some component of neurogenic colon at the same time. He has been relatively stable with bowel regimen at home. However, recently that seems to have been disrupted he is still tolerating clear liquids diet and is having loose bowel movements but he is still having some generalized abdominal discomfort and weakness along with it. PAST MEDICAL HISTORY: Hypertension. Diabetes. Ankylosing spondylitis. Benign prostatic hypertrophy (BPH) Migraines. Congestive heart failure. Hyperlipidemia. Atrial fibrillation. Multiple UTIs. History of C difficile. Obstructive sleep apnea (LEEANN). Iron deficient anemia. Paraplegia. Neurogenic bladder. Postop spinal infection. PAST SURGICAL HISTORY: Spinal surgery. Left hemicolectomy. Right knee replacement. Right hip replacement. Multiple abdominal hernia repairs. Bladder biopsies Suprapubic catheter placement. Thoracic decompressive laminectomy. Pacemaker placement. SOCIAL HISTORY: Denies drug, alcohol, tobacco abuse. FAMILY HISTORY: Noncontributory. ALLERGIES: Multiple. Please see medical record. MEDICATIONS: Please see medical record REVIEW OF SYSTEMS: Pertinent positives and negatives as per history of present illness HPI. PHYSICAL EXAMINATION: GENERAL: Alert and oriented times three. No acute stress. VITALS: Temperature 97.8, pulse 75, respirations 18, blood pressure 157/74, pulse ox 97% room air. HEENT: Pupils equal round react to light and accommodation. HEART: S1, S2 regular rate and rhythm. LUNGS: Clear to auscultation bilaterally. ABDOMEN: Soft. Nondistended. Slight tenderness to palpation diffusely. No rebounding, guarding, rigidity. Along the mid right side the abdomen. There is some fullness in the abdominal wall likely secondary to scarring from previous surgeries. No evidence of recurrent hernia. EXTREMITIES: Bilateral lower extremity pitting edema. LABS: White count 6.7, hemoglobin 8.9, platelets 170, potassium 4.1. IMAGING STUDIES: CT abdomen and pelvis showed diffusely dilated fluid-filled small bowel along with significant fecal stasis throughout the colon similar to the prior exam. No ascites or free air. No obvious transition points noted. ASSESSMENT/PLAN: The patient is a 73-year-old male with a complex medical history currently with fecal stasis and some small bowel distension likely secondary to ileus that is possibly multifactorial. He does respond to laxatives. RECOMMENDATION: Recommendation at this time is to get him back on a better bowel regimen. I will start him on Reglan around the clock to help with motility also will start him on MiraLAX daily and give him a couple bottles of mag citrate until he is flushed out. Once he is flushed out, we will reassess his abdominal exam to see if it is improved. Start advancing his diet and see what he can tolerate from there and if this becomes a chronic issue, he may have to have a colostomy discussed with him and the family in the near future. ERIK
[2019-04-05] MEDS: MIRALAX *UNIT DOSE* 17GM PACKET PO SCH (13:21)
[2019-04-05] MEDS: NYSTATIN 100,000 UNITS/GM TOPICAL PWD 15 GM TOP SCH ×2 (13:22→21:17)
[2019-04-05] MEDS: FUROSEMIDE 40 MG TAB PO SCH (13:23)
[2019-04-05] MEDS: SENOKOT S TAB PO SCH ×2 (13:24→21:16)
[2019-04-05] MEDS: PANTOPRAZOLE 40MG TAB (PROTONIX) PO SCH ×2 (13:24→21:16)
[2019-04-05] MEDS: SPIRONOLACTONE 12.5MG PER 1/2 TABLET PO SCH (13:24)
[2019-04-05] MEDS: METOCLOPRAMIDE 10 MG TAB PO SCH ×3 (13:24→23:56)
[2019-04-05] MEDS: MAGNESIUM OXIDE 400 MG TAB (MAG-OX) PO SCH ×2 (13:25→21:16)
[2019-04-05] MEDS: FENOFIBRATE 145 MG TAB (TRICOR) PO SCH (13:25)
[2019-04-05] MEDS: GABAPENTIN 300 MG CAP PO SCH ×2 (13:25→21:16)
[2019-04-05 14:00] VITALS: BP 154/75
[2019-04-05 19:57] LABS: FERRITIN 120 NG/ML (26-388); IRON (FE) 25 UG/DL (65-175); PERCENT SATURATION 12.4 % (19.7-50.0); TOTAL IRON BINDING CAPACITY 201 UG/DL (250-450)
[2019-04-05] MEDS: ATORVASTATIN 20 MG TAB PO SCH (21:15)
[2019-04-05] MEDS: SOLIFENACIN 5 MG TAB PO SCH (21:16)
[2019-04-05 22:00] VITALS: BP 145/72
[2019-04-06] MEDS: SODIUM CHLORIDE 0.9% INJ 10 ML SYR IV SCH ×2 (05:48→18:23)
[2019-04-06] MEDS: GABAPENTIN 300 MG CAP PO SCH ×3 (05:49→21:10)
[2019-04-06] MEDS: METOCLOPRAMIDE 10 MG TAB PO SCH ×4 (05:49→23:38)
[2019-04-06 06:00] VITALS: BP 120/68
[2019-04-06 06:10] LABS: HEMATOCRIT 24.4 % (42.0-52.0); HEMOGLOBIN 8.3 g/dl (13.5-17.5); MEAN CORPUSCULAR HEMOGLOBIN 28.2 pg (27.0-33.0); PLATELET COUNT, AUTOMATED 197 10^3/uL (150-450); RED BLOOD COUNT 2.94 10^6/uL (4.30-6.10)
--- NOTE | 2019-04-06 07:26 | CR ---
CARDIOLOGY CONSULTATION DATE OF CONSULTATION: 04/05/2019 REFERRING PHYSICIAN: Dr. Lane Mina INDICATION: Known hypertensive heart disease with heart failure, chronic atrial fibrillation, and pacemaker in situ. HISTORY: This 73-year-old, father of two, disabled by chronic back pain, resident of [place], [place], who is well-known to our cardiology practice with obesity, obstructive sleep apnea, hypertensive and pulmonary heart disease, abnormal electrocardiogram (EKG), chronic atrial fibrillation, heart failure and AV block with pacemaker in situ. He was last seen in our office December 2018 and at that time had clinical evidence of decompensated heart failure. Diuretics were adjusted and an echocardiogram was requested, but unfortunately ever since then he has been intermittently in hospital for gastrointestinal (GI) problems, problems with his suprapubic catheter leaking, urinary tract infection, possible hospital-acquired pneumonia, and Clostridium (C) difficile diarrhea. He had been hospitalized from 03/13/2019 to 03/30/2019 with diagnosis of metabolic encephalopathy, urinary tract infection, C difficile colitis, chronic constipation with intermittent small bowel obstruction, hospital acquired pneumonia, and diabetes mellitus. At the time of his discharge, he initially seemed to doing well, eating and starting to ambulate, but had lost tremendous strength and weight since we saw him last. In [place], he had been able to walk several hundred feet at his own pace and at this point he can barely sit up. He was readmitted to the hospital 04/02/2019 because of weakness and vomiting and poor nutritional status. He was initially believed to be dehydrated, but vital signs showed a heart rate of 74 beats per minute (BPM), respiratory rate of 18, O2 saturation 96 on room air and blood pressure 121/60. He was given gentle hydration with his hemoglobin dropping from 11 on admission to 7.8. He was given a single unit of blood earlier today and his oral anticoagulation was placed on hold because of GI blood loss. Interestingly, his recorded weight has not changed from his admission. Cardiology consultation was placed. He remains free of any chest discomfort and denies shortness of breath at this time. Remains unaware of his heart action. Reports feeling lightheaded with attempted sitting up with physical therapy earlier today. Has had a history of metabolic encephalopathy with documented CO2 retention and reduced responsiveness. No lateralizing neurological deficit beyond that attributed to his spinal surgery. Has chronic lower leg swelling. KNOWN PAST CARDIAC DISEASE/EVENTS/TESTS: Regadenoson Cardiolite heart scan 10/26/2012 showed no inducible chest pain or EKG change. Rare PVCs. Otherwise in atrial fibrillation. Normal LV wall motion and size with LVEF 64% with normal stress SPECT myocardial perfusion images. Echocardiogram 09/19/2013 was technically difficult because of his body habitus, but showed moderate concentric left ventricle hypertrophy with preserved systolic function, moderately dilated left atrium with restrictive impairment of LV diastolic function and elevated mean left atrial pressure, right ventricular hypertrophy with at least mild pulmonary hypertension. We were unable to see his inferior vena cava and estimate central venous pressure. He has aortic valvular sclerosis and mitral annular calcification without functional valvular abnormality. Holter monitor 01/20/2018 showed underlying atrial fibrillation with bifascicular block and intermittent high-grade AV block during wakeful hours without negative chronotropic therapy and only rare isolated PVCs. In light of this, a single chamber permanent pacemaker was implanted. EKG 09/12/2018 showed underlying atrial fibrillation with controlled ventricular response at 63 BPM. Activity related to his VVI pacemaker was evident, but only as pseudo fused complexes that were actually spontaneous not paced, underlying spontaneous complexes showing a right axis was quite marked and right bundle branch block. Repolarization abnormalities were not changed from March 2018. CORONARY RISK FACTORS: Male gender, age, obesity, insulin-dependent diabetes mellitus, chronic hypertension, hypercholesterolemia, and family history of premature coronary disease. Has never been a smoker and has no symptomatic carotid disease. OTHER MEDICAL PROBLEMS: Obstructive sleep apnea, consistently uses C-PAP unless he becomes confused. Follows with [facility]. History of renal insufficiency. Known rheumatoid arthritis and ankylosing spondylitis with cervical disk disease and lumbar disk disease status post spinal surgery for tumor causing paraplegia. Has erectile dysfunction and neurogenic bladder with a catheter in situ. History of immune thrombocytic purpura. Chronic anemia. MEDICATIONS: Atorvastatin 40 mg at bedtime, fenofibrate 145 mg daily, had been on Eliquis 5 mg twice a day, furosemide 40 mg daily, spironolactone 12.5 mg daily, magnesium oxide 400 mg twice a day, insulin Levemir 5 units subcutaneous twice a day with Humalog insulin before meals and bedtime according to sliding scale, has a peripherally inserted centra catheter (PICC) line in situ being flushed with heparin intermittently, on Mycostatin to groin area twice a day, on Vesicare 10 mg at bedtime, gabapentin 600 mg by mouth every 8 hours, Reglan 10 mg by mouth every 6 hours, Protonix 40 mg twice a day, Senokot-S 1 tablet twice a day, MiraLax 1 package daily, Dulcolax 10 mg per rectum daily as needed constipation, and Zofran 8 mg IV every 6 hours as needed for nausea, vomiting. ALLERGIES/INTOLERANCES: - MORPHINE SULFATE (hives) - HYDROCHLOROTHIAZIDE (unknown reaction) - SOMA (hives) - MASTISOL STERI-STRIP (hives) - SOO INHIBITORS (cough) - ANGIOTENSIN RECEPTOR BLOCKERS (renal insufficiency) - ADHESIVE TAPES AND SOAPS (hives) PHYSICAL EXAMINATION: Constitutional: Currently alert, overweight, barrel-chested elderly male lying in his bed with the head elevated 30 degrees without distress. Appears pale and with slightly sallow complexion. Vital Signs: Heart rate 68 beats per minute and irregular, blood pressure 120/68 supine, respiratory rate 18, O2 saturation 99% on room air. He is afebrile. Height 65 inches. Weight 201 pounds (8 pounds less than he weighed 03/09/2018). Eyes: No obvious icterus or petechiae. No xanthelasma of his lids. ENT/Mouth: Multiple missing teeth. Normal oral moisture. Neck: Trachea midline. Thyroid not enlarged. Jugular veins were visible least 5 cm above the sternal angle. Respiratory: Increased anteroposterior chest diameter with fair air entry over both lung borrego. Has few scattered inspiratory rales both lower lobes posteriorly that improve with a deep breath. No expiratory rhonchi. Cardiovascular: Well-healed pacer incision left subclavian region. Apical impulse not palpable. Heart sounds somewhat distant and variable. No apparent murmur. Unable to appreciate a gallop. Normal carotid upstrokes with variable volume related to his arrhythmia, but no carotid bruits. Abdominal aorta and femoral pulses not palpable because of his obesity. No bruits. Pedal pulses were difficult to palpate because of edema. Extremities: Has at least 1 mm pitting edema three-quarters of the way up both lower legs and over his sacrum. No apparent varicose veins. No clubbing, peripheral cyanosis or splinter hemorrhages. GI: Soft, obese, nontender abdomen with no apparent splenomegaly. Rectal examination not indicated. Musculoskeletal: No obvious joint deformities. Fairly normal upper extremity strength. Bilateral lower leg weakness, but no abnormal movements. Spine appeared to be normal. Neuro/Psych: Currently bright, alert and oriented. Gave a fair history. INVESTIGATIONS: Admission portable upright chest x-ray was reviewed independently and shows obvious cardiomegaly with slightly unfolded thoracic aorta and single chamber pacemaker with pulse generator left subclavian region and tip terminating in his right ventricular apex. EKG: Last available study. Tracing on admission shows underlying atrial fibrillation with controlled ventricular response averaging 64 BPM. This shows mostly spontaneous QRS complexes with left posterior hemiblock and right bundle branch block, but no primary repolarization abnormality. It also shows appropriate pacer sensing and pacing. BLOOD WORK: Studies done today show hemoglobin of 8.9 down from 11 on admission likely related to hydration, normal white blood cell count and platelet count. MCV and MCHC were both normal in keeping with an anemia of chronic disease. Electrolytes today showed a mild hyponatremia of 132, other electrolytes were normal with bicarb 32. Current BUN 15 down from 20 on admission, creatinine 0.9 down from 1.37 on admission. This morning's fasting glucose was 141. Serum calcium was normal at 8.9, though his serum albumin yesterday was 2.0. Ultra sensitive TSH on admission was normal at 1.9. Liver function studies were normal. Troponin I level was 0.06. Magnesium level was normal at 2.1. Urinalysis showed 1+ microscopic hematuria with bacteria and leukocyte esterase positivity. IMPRESSION/PLAN: 1. Heart failure (diastolic/chronic): Currently not short of breath with excellent O2 saturation on room air. I suspect his bibasilar inspiratory rales are related to atelectasis with bedrest. Continue his modest salt intake restriction and hopefully provide fluid in the form of calories and nutrients such as Ensure 1 can three times a day in light of his markedly low albumin. I suspect his weakness is related to malnutrition. No change was made to his current furosemide and spironolactone, but we will check a BNP level as well as a followup echocardiogram/Doppler study while he is in hospital. 2. Chronic atrial fibrillation: Has been free of any lateralizing neurological event on his oral anticoagulation. Subtle GI bleeding noticed this morning so his Eliquis was withheld. Iron studies have been ordered, but I believe it is prudent to continue his Eliquis. According to general surgery, they are not opposed to our continuing his oral anticoagulation at this time. Has been free of symptomatic arrhythmia off negative chronotropic therapy. 3. Abnormal EKG/bifascicular block/intermittent high-grade AV block/single chamber pacemaker in situ: As mentioned, free of symptomatic arrhythmia. His pacemaker appears to be functioning appropriately. No primary repolarization abnormality is evident. 4. Hypertensive heart disease (benign with heart failure): Current blood pressure remains adequately controlled on diuretic therapy alone. Chemistry today shows essentially electrolyte balance with normal renal function. 5. Obesity (BMI 33)/chronic obstructive sleep apnea/cor pulmonale/right heart failure: Problem of some chronicity. Prior attempts to rid him of systemic edema have led to hypotension and azotemia. I suspect he may be at his effective dry weight at this time. I have spoken briefly with the patient's daughter and will make sure that they are aware of his cardiac test findings. We intend to follow him more from afar unless there become any acute cardiac issues. I thank you for allowing us to participate in the care of your patient. Best regards. ERIK
[2019-04-06] MEDS: HumaLOG INSULIN (NovoLOG) PER UNIT SC SCH ×4 (07:30→21:00)
[2019-04-06 07:46] LABS: ALBUMIN 2.1 GM/DL (3.2-5.2); ALT/SGPT 11 U/L (12-78); BILIRUBIN,TOTAL 0.5 MG/DL (0.2-1.0); BLOOD UREA NITROGEN 15 MG/DL (7-18); CALCIUM LEVEL 8.8 MG/DL (8.8-10.2); CARBON DIOXIDE LEVEL 32 MEQ/L (21-32); CHLORIDE LEVEL 97 MEQ/L (98-107); CREATININE FOR GFR 0.89 MG/DL (0.70-1.30); GLOMERULAR FILTRATION RATE > 60.0 (>42); GLUCOSE, FASTING 97 MG/DL (70-100); NT-PRO BNP 2446 PG/ML (<125); SODIUM LEVEL 133 MEQ/L (136-145); TOTAL PROTEIN 5.4 GM/DL (6.4-8.2)
[2019-04-06] MEDS ORDERED: APIXABAN 5 MG TAB (ELIQUIS) PO SCH (09:00)
--- NOTE | 2019-04-06 09:13 | IPNPDOC ---
Text Note Date of Service The patient was seen on 04/06/19. NOTE No acute events overnight. He denies any nausea, emesis, fevers, abd pains, or distention. He has a lot more energy today, and denies any abd pains. VSSAF NAD abd - soft, non distended, NT labs - see below A) 73y/o male with chronic constipation P) ambulate PT reg diet bowel regimen will follow as needed Gera Mead DO VS,Lili, I+O VS, [place], I+O Laboratory Tests 04/06/19 05:57 Red Blood Count 2.94 L, Mean Corpuscular Volume 83.0, Mean Corpuscular Hemoglobin 28.2, Mean Corpuscular Hemoglobin Concent 34.0, Red Cell Distribution Width 13.5 04/06/19 06:48 Calcium Level 8.8, Aspartate Amino Transf (AST/SGOT) 19, Alanine Aminotransferase (ALT/SGPT) 11 L, Alkaline Phosphatase 61, Total Bilirubin 0.5, Total Protein 5.4 L, Albumin 2.1 L Vital Signs Date Time Temp Pulse Resp B/P (MAP) Pulse Ox O2 Delivery O2 Flow Rate FiO2 04/06/19 06:00 98.5 80 18 120/68 (85) 98 04/02/19 18:14 Room Air 04/02/19 14:15 99 I&O- Last 24 Hours up to 6 AM 04/06/19 06:00 Intake Total 2040 ml Output Total 2500 ml Balance -460 ml BRANDEN MEAD DO Apr 06, 2019 09:13
[2019-04-06] MEDS: SPIRONOLACTONE 12.5MG PER 1/2 TABLET PO SCH (09:15)
[2019-04-06] MEDS: PANTOPRAZOLE 40MG TAB (PROTONIX) PO SCH ×2 (09:15→21:10)
[2019-04-06] MEDS: SENOKOT S TAB PO SCH ×2 (09:15→21:10)
[2019-04-06] MEDS: FUROSEMIDE 40 MG TAB PO SCH (09:15)
[2019-04-06] MEDS: FENOFIBRATE 145 MG TAB (TRICOR) PO SCH (09:15)
[2019-04-06] MEDS: MIRALAX *UNIT DOSE* 17GM PACKET PO SCH (09:15)
[2019-04-06] MEDS: MAGNESIUM OXIDE 400 MG TAB (MAG-OX) PO SCH ×2 (09:15→21:10)
[2019-04-06] MEDS: NYSTATIN 100,000 UNITS/GM TOPICAL PWD 15 GM TOP SCH ×2 (09:16→21:11)
[2019-04-06] MEDS: LEVEMIR (INSULIN DETEMIR) 1 UNITS/0.01ML SC SCH ×2 (09:16→21:09)
--- NOTE | 2019-04-06 09:52 | IPNPDOC ---
Subjective Date Seen The patient was seen on 04/06/19. Subjective Chief Complaint/HPI feeling better. Constitutional: Denies: Chills ENT: Denies: Head Aches Pulmonary: Denies: Dyspnea, Cough Cardiovascular: Denies: Chest Pain, Orthopnea Gastrointestinal: Reports: Abdominal Pain (less); Denies: Nausea Hematologic: Denies: Bruising Psych: Reports: Mood Normal Objective Physical Examination General Exam: Positive: Alert Eye Exam: Positive: PERRLA ENT Exam: Positive: Atraumatic Neck Exam: Positive: Supple; Negative: thyromegaly Chest Exam: Positive: Clear to auscultation; Negative: Rales Heart Exam: Positive: Rate Normal; Negative: Murmurs Abdomen Exam: Positive: Normal bowel sounds, Soft, Tenderness (nearly gone), Mass (suprumbilical firm area in abdominal wall, not red or especially tender, seems to be residual from previous surgeries) Extremity Exam: Positive: Edema (soft doughey edema lower extremities. 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 On more aggressive bowel regimen. 04/05: less discomfort, not distended. will try to advance diet. was seen by Dr. Mead this am. Had multiple stools after receiving the Mag Citrate 04/04: CT shows SBO pattern with descriptions of surgical mesh and comment about fecal stasis. No improvement with use of Dulcolax supp., consider enema but will consult Gen Surg before ordering. mostly RLQ. will investigate with CT. continue clear liquid diet for now. (2) Hyponatremia Status: Chronic Response to Treatment: Stable, Improving Problem Text: 04/06: 133 sodium this am 04/05: sodium 132 this am. Still 131, stable. in setting of edema and suggestion of fluid expanded state. likely low oncotic pressure contributes to edema. (3) Anemia Status: Acute Response to Treatment: Stable Problem Text: 04/06: Hgb down slightly but Dr. Jin and apparently Dr. Mead feel it is safe to resume Eliquis. Will resume at 2.5mg bid dose. 04/05: slight dip since yesterday, may be due to hydration. He had colonoscopy 12/2018 Dr. Arechiga, so suspect upper GI source. He has been on pantoprazole 40 daily. Continuing to hold Eliquis. Resume pantoprazole at 40 bid On Eliquis so GI blood loss is suspected. Will check hemoccult. Surgical consult requested. Hgb 7.8 this am so will transfuse one unit PRBC. (4) Indwelling Nuñez catheter present Status: Chronic Response to Treatment: Stable (5) Physical deconditioning Status: Chronic Response to Treatment: Stable Problem Text: PT needed. (6) DM2 (diabetes mellitus, type 2) Status: Chronic Response to Treatment: Stable, Improving (7) Chronic a-fib Status: Chronic Response to Treatment: Stable Problem Text: 04/05: stable but patient family requesting consult with Dr. Jin. Will request. 04/04: due to drop in Hgb, holding Eliquis until demonstration of Heme neg stool and Surgical eval of abdomen. 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 Increased pain perception may be related to stopping gabapentin at admission so will resume at usual dose. Per patient and family, Dr. Ritchie had planned for cT of foot. Will order and attempt to confirm with [employer] that this is the correct test that Dr. Ritchie had planned. (9) Edema due to hypoalbuminemia Status: Chronic Response to Treatment: Stable Problem Text: resuming diet, ensure or similar also recommended. Plan/VTE VTE Prophylaxis Ordered?: No VTE Exclusion Mechanical Proph: Other (leg pain.) VTE Exclusion Pharmacological: Active Bleeding Plan Diet: Continue Current Therapy: PT, OT Anticipated Discharge: [facility] VS, I&O, 24H, Fishbone Vital Signs/I&O Vital Signs Date Time Temp Pulse Resp B/P (MAP) Pulse Ox O2 Delivery O2 Flow Rate FiO2 04/06/19 06:00 98.5 80 18 120/68 (85) 98 04/02/19 18:14 Room Air 04/02/19 14:15 99 I&O- Last 24 Hours up to 6 AM 04/06/19 06:00 Intake Total 2040 ml Output Total 2500 ml Balance -460 ml Laboratory Data 24H LABS Laboratory Tests 2 04/06/19 05:57: Nucleated Red Blood Cells % (auto) 0.0 04/06/19 06:48: Anion Gap 4L, Glomerular Filtration Rate > 60.0, Blood Urea Nitrogen 15, Creatinine 0.89, Sodium Level 133L, Potassium Level 4.0, Chloride Level 97L, Carbon Dioxide Level 32, Calcium Level 8.8, Aspartate Amino Transf (AST/SGOT) 19, Alanine Aminotransferase (ALT/SGPT) 11L, Alkaline Phosphatase 61, Total Bilirubin 0.5, Total Protein 5.4L, Albumin 2.1L, YL-[id number]-L-Type Natriuretic Peptide 2446H, Albumin/Globulin Ratio 0.64L CBC/BMP Laboratory Tests 04/06/19 05:57 Red Blood Count 2.94 L, Mean Corpuscular Volume 83.0, Mean Corpuscular Hemoglobin 28.2, Mean Corpuscular Hemoglobin Concent 34.0, Red Cell Distribution Width 13.5 04/06/19 06:48 Calcium Level 8.8, Aspartate Amino Transf (AST/SGOT) 19, Alanine Aminotransferase (ALT/SGPT) 11 L, Alkaline Phosphatase 61, Total Bilirubin 0.5, Total Protein 5.4 L, Albumin 2.1 L Microbiology Microbiology 04/04/19 Stool Occult Blood (CYNDIE) - Final, Complete 04/02/19 Urine Culture - Final, Complete Lane Mina MD Apr 06, 2019 09:52
[2019-04-06] MEDS: APIXABAN 2.5 MG TAB (ELIQUIS) PO SCH ×2 (11:14→21:10)
[2019-04-06 14:00] VITALS: BP 123/54
[2019-04-06 20:24] VITALS: BP 123/57
[2019-04-06] MEDS ORDERED: BACLOFEN 10 MG TAB PO PRN (20:45)
[2019-04-06] MEDS: SOLIFENACIN 5 MG TAB PO SCH (21:09)
[2019-04-06] MEDS: ATORVASTATIN 20 MG TAB PO SCH (21:10)
--- NOTE | 2019-04-06 22:53 | ECHO ---
DATE OF PROCEDURE: 04/06/2019 REFERRING PHYSICIAN: Yon Jin MD INDICATION: Heart failure, unspecified. HEIGHT: 65 inches WEIGHT: 91 kg 2D MEASUREMENTS: LVOT: 2.2 cm Left atrium: 4.7 cm Aortic root: 3.1 cm Ventricular septum: 2.01 cm Posterior wall: 1.60 cm Left ventricle diastole: 4.3 cm DOPPLER MEASUREMENTS: Trace aortic regurgitation. Aortic valve velocity: 135 cm/s LVOT velocity: 96.8 cm/s LVOT VTI: 18.5 cm Mild mitral regurgitation. Mild tricuspid regurgitation. Estimated right ventricle systolic pressure 34-39 mmHg assuming a right atrial pressure of 5-10 mmHg. DESCRIPTION: Rhythm was atrial fibrillation with infrequent but appropriate ventricular demand pacing. This was a moderately technically difficult echocardiogram. This was a 2D, M-mode, color flow Doppler and pulse wave Doppler examination that included mitral annular tissue Doppler. CONCLUSIONS: 1. Severe concentric left ventricle hypertrophy. Basal inferior segment akinesis, basal inferolateral segment severe hyperkinesis, normal regional wall motion and wall thickening elsewhere. Preserved overall systolic function. Left ventricular ejection fraction (LVEF) 60% by visual estimate. 2. Moderate left atrial dilatation. 3. Mild mitral annular calcification with mild mitral regurgitation. 4. Mild aortic valve sclerosis of a three-cuspid aortic valve. Trace aortic regurgitation. 5. Suggestive of mild elevation of estimated right ventricular systolic pressure. Very mild tricuspid regurgitation. Normal right ventricle size and systolic function. 6. Tiny pericardial effusion. 7. Presence of a ventricular pacemaker lead coursing toward the right ventricle apex.
[2019-04-07 05:52] VITALS: BP 124/58
[2019-04-07] MEDS: SODIUM CHLORIDE 0.9% INJ 10 ML SYR IV SCH ×2 (06:10→17:53)
[2019-04-07] MEDS: METOCLOPRAMIDE 10 MG TAB PO SCH ×4 (06:10→23:21)
[2019-04-07] MEDS: GABAPENTIN 300 MG CAP PO SCH ×3 (06:10→21:18)
[2019-04-07 06:23] LABS: HEMATOCRIT 25.5 % (42.0-52.0); HEMOGLOBIN 8.5 g/dl (13.5-17.5); MEAN CORPUSCULAR HEMOGLOBIN 28.5 pg (27.0-33.0); MEAN CORPUSCULAR HGB CONC 33.3 g/dl (32.0-36.5); MEAN CORPUSCULAR VOLUME 85.6 fl (80.0-96.0); PLATELET COUNT, AUTOMATED 193 10^3/uL (150-450); RED BLOOD COUNT 2.98 10^6/uL (4.30-6.10); WHITE BLOOD COUNT 7.5 10^3/uL (4.0-10.0)
[2019-04-07 06:49] LABS: BLOOD UREA NITROGEN 14 MG/DL (7-18); CALCIUM LEVEL 7.4 MG/DL (8.8-10.2); CARBON DIOXIDE LEVEL 29 MEQ/L (21-32); CHLORIDE LEVEL 104 MEQ/L (98-107); CREATININE FOR GFR 0.75 MG/DL (0.70-1.30); GLOMERULAR FILTRATION RATE > 60.0 (>42); GLUCOSE, FASTING 100 MG/DL (70-100); POTASSIUM SERUM 3.4 MEQ/L (3.5-5.1); SODIUM LEVEL 136 MEQ/L (136-145)
[2019-04-07] MEDS: SPIRONOLACTONE 12.5MG PER 1/2 TABLET PO SCH (08:09)
[2019-04-07] MEDS: HumaLOG INSULIN (NovoLOG) PER UNIT SC SCH ×4 (08:09→21:00)
[2019-04-07] MEDS: APIXABAN 2.5 MG TAB (ELIQUIS) PO SCH ×2 (08:09→21:18)
[2019-04-07] MEDS: PANTOPRAZOLE 40MG TAB (PROTONIX) PO SCH ×2 (08:10→21:18)
[2019-04-07] MEDS: FENOFIBRATE 145 MG TAB (TRICOR) PO SCH (08:10)
[2019-04-07] MEDS: MAGNESIUM OXIDE 400 MG TAB (MAG-OX) PO SCH ×2 (08:10→21:19)
[2019-04-07] MEDS: LEVEMIR (INSULIN DETEMIR) 1 UNITS/0.01ML SC SCH ×2 (08:11→21:19)
[2019-04-07] MEDS: NYSTATIN 100,000 UNITS/GM TOPICAL PWD 15 GM TOP SCH ×2 (08:12→21:19)
[2019-04-07] MEDS: SENOKOT S TAB PO SCH ×2 (08:24→21:18)
[2019-04-07] MEDS: FUROSEMIDE 40 MG TAB PO SCH (08:24)
[2019-04-07] MEDS: MIRALAX *UNIT DOSE* 17GM PACKET PO SCH (08:24)
--- NOTE | 2019-04-07 12:20 | IPNPDOC ---
Subjective Date Seen The patient was seen on 04/07/19. Subjective Chief Complaint/HPI less pain. eating ok Constitutional: Denies: Chills Pulmonary: Denies: Dyspnea, Cough Cardiovascular: Denies: Chest Pain, Palpitations Gastrointestinal: Denies: Nausea, Vomiting Hematologic: Denies: Bruising Neurological: Denies: Weakness Psych: Reports: Mood Normal Objective Physical Examination General Exam: Positive: Alert Eye Exam: Positive: PERRLA ENT Exam: Positive: Atraumatic Neck Exam: Positive: Supple; Negative: thyromegaly Chest Exam: Positive: Clear to auscultation; Negative: Rales Heart Exam: Positive: Rate Normal; Negative: Murmurs Abdomen Exam: Positive: Normal bowel sounds, Soft, Tenderness (nearly gone), Mass (suprumbilical firm area in abdominal wall, not red or especially tender, s eems to be residual from previous surgeries) Extremity Exam: Positive: Edema (soft doughey edema lower extremities. 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 On more aggressive bowel regimen. 04/05: less discomfort, not distended. will try to advance diet. was seen by Dr. Mead this am. Had multiple stools after receiving the Mag Citrate 04/04: CT shows SBO pattern with descriptions of surgical mesh and comment about fecal stasis. No improvement with use of Dulcolax supp., consider enema but will consult Gen Surg before ordering. mostly RLQ. will investigate with CT. continue clear liquid diet for now. (2) Hyponatremia Status: Resolved Response to Treatment: Stable, Improving Problem Text: 04/06: 133 sodium this am 04/05: sodium 132 this am. Still 131, stable. in setting of edema and suggestion of fluid expanded state. likely low oncotic pressure contributes to edema. (3) Anemia Status: Acute Response to Treatment: Stable Problem Text: 04/07: Hgb up a little this am, labs confirm iron deficiency. 04/06: Hgb down slightly but Dr. Jin and apparently Dr. Mead feel it is safe to resume Eliquis. Will resume at 2.5mg bid dose. 04/05: slight dip since yesterday, may be due to hydration. He had colonoscopy 12/2018 Dr. Arechiga, so suspect upper GI source. He has been on pantoprazole 40 daily. Continuing to hold Eliquis. Resume pantoprazole at 40 bid On Eliquis so GI blood loss is suspected. Will check hemoccult. Surgical consult requested. Hgb 7.8 this am so will transfuse one unit PRBC. (4) Indwelling Nuñez catheter present Status: Chronic Response to Treatment: Stable (5) Physical deconditioning Status: Chronic Response to Treatment: Stable Problem Text: PT needed. (6) DM2 (diabetes mellitus, type 2) Status: Chronic Response to Treatment: Stable, Improving (7) Chronic a-fib Status: Chronic Response to Treatment: Stable Problem Text: 04/05: stable but patient family requesting consult with Dr. Jin. Will request. 04/04: due to drop in Hgb, holding Eliquis until demonstration of Heme neg stool and Surgical eval of abdomen. 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 Increased pain perception may be related to stopping gabapentin at admission so will resume at usual dose. Per patient and family, Dr. Ritchie had planned for cT of foot. Will order and attempt to confirm with [employer] that this is the correct test that Dr. Ritchie had planned. (9) Edema due to hypoalbuminemia Status: Chronic Response to Treatment: Stable Problem Text: 04/07: improving Albumin. pro BNP was a little elevated. echo showed LVH, will add low dose ARB, losartan 12.5 and titrate if tolerated. resuming diet, ensure or similar also recommended. Plan/VTE VTE Prophylaxis Ordered?: No VTE Exclusion Mechanical Proph: Other (leg pain.) VTE Exclusion Pharmacological: Active Bleeding Plan Diet: Continue Current Therapy: PT, OT Anticipated Discharge: Jail VS, I&O, 24H, Fishbone Vital Signs/I&O Vital Signs Date Time Temp Pulse Resp B/P (MAP) Pulse Ox O2 Delivery O2 Flow Rate FiO2 04/07/19 05:52 96.1 81 20 124/58 (80) 96 04/02/19 18:14 Room Air 04/02/19 14:15 99 I&O- Last 24 Hours up to 6 AM 04/07/19 06:00 Intake Total 2880 ml Output Total 4150 ml Balance -1270 ml Laboratory Data 24H LABS Laboratory Tests 2 04/07/19 06:14: Nucleated Red Blood Cells % (auto) 0.0, Anion Gap 3L, Glomerular Filtration Rate > 60.0, Blood Urea Nitrogen 14, Creatinine 0.75, Sodium Level 136, Potassium Level 3.4L, Chloride Level 104, Carbon Dioxide Level 29, Calcium Level 7.4#L CBC/BMP Laboratory Tests 04/07/19 06:14 Red Blood Count 2.98 L, Mean Corpuscular Volume 85.6, Mean Corpuscular Hemoglobin 28.5, Mean Corpuscular Hemoglobin Concent 33.3, Red Cell Distribution Width 13.5, Calcium Level 7.4 #L Microbiology Microbiology 04/04/19 Stool Occult Blood (CYNDIE) - Final, Complete 04/02/19 Urine Culture - Final, Complete Lane Mina MD Apr 07, 2019 12:20
[2019-04-07] MEDS: POTASSIUM CHLORIDE 10 MEQ SR TABLET PO SCH (13:36)
[2019-04-07] MEDS: FERROUS SULFATE 325MG TAB PO SCH (13:37)
[2019-04-07] MEDS: LOSARTAN 25 MG TAB PO SCH (13:46)
[2019-04-07 14:00] VITALS: BP 137/69
[2019-04-07] MEDS: ATORVASTATIN 20 MG TAB PO SCH (21:18)
[2019-04-07] MEDS: SOLIFENACIN 5 MG TAB PO SCH (21:18)
[2019-04-08 05:20] VITALS: BP 99/54
[2019-04-08] MEDS: METOCLOPRAMIDE 10 MG TAB PO SCH ×4 (05:26→23:07)
[2019-04-08] MEDS: GABAPENTIN 300 MG CAP PO SCH ×3 (05:27→20:49)
[2019-04-08] MEDS: SODIUM CHLORIDE 0.9% INJ 10 ML SYR IV SCH ×2 (05:27→18:20)
[2019-04-08 06:29] LABS: HEMATOCRIT 24.9 % (42.0-52.0); HEMOGLOBIN 8.2 g/dl (13.5-17.5); MEAN CORPUSCULAR HEMOGLOBIN 27.6 pg (27.0-33.0); MEAN CORPUSCULAR HGB CONC 32.9 g/dl (32.0-36.5); MEAN CORPUSCULAR VOLUME 83.8 fl (80.0-96.0); PLATELET COUNT, AUTOMATED 204 10^3/uL (150-450); RED BLOOD COUNT 2.97 10^6/uL (4.30-6.10); WHITE BLOOD COUNT 8.3 10^3/uL (4.0-10.0)
[2019-04-08 06:55] LABS: BLOOD UREA NITROGEN 21 MG/DL (7-18); CALCIUM LEVEL 9.1 MG/DL (8.8-10.2); CARBON DIOXIDE LEVEL 33 MEQ/L (21-32); CHLORIDE LEVEL 92 MEQ/L (98-107); CREATININE FOR GFR 1.19 MG/DL (0.70-1.30); GLOMERULAR FILTRATION RATE > 60.0 (>42); GLUCOSE, FASTING 112 MG/DL (70-100); POTASSIUM SERUM 4.6 MEQ/L (3.5-5.1); SODIUM LEVEL 129 MEQ/L (136-145)
[2019-04-08] MEDS: HumaLOG INSULIN (NovoLOG) PER UNIT SC SCH ×4 (07:50→20:51)
[2019-04-08] MEDS: NYSTATIN 100,000 UNITS/GM TOPICAL PWD 15 GM TOP SCH ×2 (09:00→20:51)
[2019-04-08] MEDS: FENOFIBRATE 145 MG TAB (TRICOR) PO SCH (09:19)
[2019-04-08] MEDS: PANTOPRAZOLE 40MG TAB (PROTONIX) PO SCH ×2 (09:19→20:50)
[2019-04-08] MEDS: APIXABAN 2.5 MG TAB (ELIQUIS) PO SCH ×2 (09:19→20:50)
[2019-04-08] MEDS: POTASSIUM CHLORIDE 10 MEQ SR TABLET PO SCH (09:19)
[2019-04-08] MEDS: SENOKOT S TAB PO SCH ×2 (09:19→20:49)
[2019-04-08] MEDS: LEVEMIR (INSULIN DETEMIR) 1 UNITS/0.01ML SC SCH ×2 (09:19→20:50)
[2019-04-08] MEDS: MAGNESIUM OXIDE 400 MG TAB (MAG-OX) PO SCH ×2 (09:19→20:50)
[2019-04-08] MEDS: MIRALAX *UNIT DOSE* 17GM PACKET PO SCH (09:20)
[2019-04-08] MEDS: SPIRONOLACTONE 12.5MG PER 1/2 TABLET PO SCH (09:20)
[2019-04-08] MEDS: FUROSEMIDE 40 MG TAB PO SCH (09:20)
[2019-04-08] MEDS: FERROUS SULFATE 325MG TAB PO SCH (09:20)
[2019-04-08] MEDS: LOSARTAN 25 MG TAB PO SCH (09:20)
--- NOTE | 2019-04-08 11:43 | IPNPDOC ---
Subjective Date Seen The patient was seen on 04/08/19. Subjective Chief Complaint/HPI feeling better every day. ENT: Denies: Head Aches Pulmonary: Denies: Dyspnea Cardiovascular: Denies: Chest Pain, Palpitations Gastrointestinal: Denies: Nausea, Vomiting Hematologic: Denies: Bruising Neurological: Denies: Change in speech Psych: Reports: Mood Normal Objective Physical Examination General Exam: Positive: Alert Eye Exam: Positive: PERRLA ENT Exam: Positive: Atraumatic Neck Exam: Positive: Supple; Negative: thyromegaly Chest Exam: Positive: Clear to auscultation; Negative: Rales Heart Exam: Positive: Rate Normal; Negative: Murmurs Abdomen Exam: Positive: Normal bowel sounds, Soft, Mass (suprumbilical firm area in abdominal wall, not red or especially tender, seems to be residual from previous surgeries); Negative: Tenderness Extremity Exam: Positive: Edema (soft doughey edema lower extremities. 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 04/07 continued improvement, tolerating diet 04/06 improving functional ileus thought to be secondary to fecal stasis. On more aggressive bowel regimen. 04/05: less discomfort, not distended. will try to advance diet. was seen by Dr. Mead this am. Had multiple stools after receiving the Mag Citrate 04/04: CT shows SBO pattern with descriptions of surgical mesh and comment about fecal stasis. No improvement with use of Dulcolax supp., consider enema but will consult Gen Surg before ordering. mostly RLQ. will investigate with CT. continue clear liquid diet for now. (2) Hyponatremia Status: Resolved Response to Treatment: Stable, Improving, Worse Problem Text: 04/08 down to 129, took in a lot of fluid yesterday. will need restriction. 04/06: 133 sodium this am 04/05: sodium 132 this am. Still 131, stable. in setting of edema and suggestion of fluid expanded state. likely low oncotic pressure contributes to edema. (3) Anemia Status: Acute Response to Treatment: Stable Problem Text: 04/08 Hgb down to 8.2 this am suspect dilutional 04/07: Hgb up a little this am, labs confirm iron deficiency. 04/06: Hgb down slightly but Dr. Jin and apparently Dr. Mead feel it is safe to resume Eliquis. Will resume at 2.5mg bid dose. 04/05: slight dip since yesterday, may be due to hydration. He had colonoscopy 12/2018 Dr. Arechiga, so suspect upper GI source. He has been on pantoprazole 40 daily. Continuing to hold Eliquis. Resume pantoprazole at 40 bid On Eliquis so GI blood loss is suspected. Will check hemoccult. Surgical consult requested. Hgb 7.8 this am so will transfuse one unit PRBC. (4) Indwelling Nuñez catheter present Status: Chronic Response to Treatment: Stable (5) Physical deconditioning Status: Chronic Response to Treatment: Stable Problem Text: PT needed. (6) DM2 (diabetes mellitus, type 2) Status: Chronic Response to Treatment: Stable, Improving (7) Chronic a-fib Status: Chronic Response to Treatment: Stable Problem Text: 04/05: stable but patient family requesting consult with Dr. Jin. Will request. 04/04: due to drop in Hgb, holding Eliquis until demonstration of Heme neg stool and Surgical eval of abdomen. 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 Increased pain perception may be related to stopping gabapentin at admission so will resume at usual dose. Per patient and family, Dr. Ritchie had planned for cT of foot. Will order and attempt to confirm with [employer] that this is the correct test that Dr. Ritchie had planned. (9) Edema due to hypoalbuminemia Status: Chronic Response to Treatment: Improving Problem Text: 04/07: improving Albumin. pro BNP was a little elevated. echo showed LVH, will add low dose ARB, losartan 12.5 and titrate if tolerated. resuming diet, ensure or similar also recommended. Plan/VTE VTE Prophylaxis Ordered?: No VTE Exclusion Mechanical Proph: Other (leg pain.) VTE Exclusion Pharmacological: Active Bleeding Plan Diet: Continue Current Therapy: PT, OT Anticipated Discharge: Detention VS, I&O, 24H, Fishbone Vital Signs/I&O Vital Signs Date Time Temp Pulse Resp B/P (MAP) Pulse Ox O2 Delivery O2 Flow Rate FiO2 04/08/19 09:20 123/62 04/08/19 05:20 98.2 72 18 04/07/19 14:00 98 04/02/19 18:14 Room Air 04/02/19 14:15 99 I&O- Last 24 Hours up to 6 AM 04/08/19 05:59 Intake Total 3075 ml Output Total 3850 ml Balance -775 ml Laboratory Data 24H LABS Laboratory Tests 2 04/08/19 06:02: Nucleated Red Blood Cells % (auto) 0.0, Anion Gap 4L, Glomerular Filtration Rate > 60.0, Blood Urea Nitrogen 21H, Creatinine 1.19#, Sodium Level 129#L, Potassium Level 4.6#, Chloride Level 92L, Carbon Dioxide Level 33H, Calcium Level 9.1# CBC/BMP Laboratory Tests 04/08/19 06:02 Red Blood Count 2.97 L, Mean Corpuscular Volume 83.8, Mean Corpuscular Hemoglobi n 27.6, Mean Corpuscular Hemoglobin Concent 32.9, Red Cell Distribution Width 13.7, Calcium Level 9.1 # Microbiology Microbiology 04/04/19 Stool Occult Blood (CYNDIE) - Final, Complete 04/02/19 Urine Culture - Final, Complete Lane Mina MD Apr 08, 2019 11:43
[2019-04-08 14:00] VITALS: BP 122/60
[2019-04-08 20:21] VITALS: BP 120/55
[2019-04-08] MEDS: SOLIFENACIN 5 MG TAB PO SCH (20:49)
[2019-04-08] MEDS: ATORVASTATIN 20 MG TAB PO SCH (20:50)
[2019-04-09] MEDS: GABAPENTIN 300 MG CAP PO SCH ×2 (05:32→13:27)
[2019-04-09] MEDS: METOCLOPRAMIDE 10 MG TAB PO SCH ×2 (05:32→13:27)
[2019-04-09] MEDS: SODIUM CHLORIDE 0.9% INJ 10 ML SYR IV SCH (05:32)
[2019-04-09 05:48] VITALS: BP 117/54
[2019-04-09 05:50] LABS: HEMATOCRIT 25.2 % (42.0-52.0); HEMOGLOBIN 8.3 g/dl (13.5-17.5); MEAN CORPUSCULAR HEMOGLOBIN 28.2 pg (27.0-33.0); MEAN CORPUSCULAR HGB CONC 32.9 g/dl (32.0-36.5); MEAN CORPUSCULAR VOLUME 85.7 fl (80.0-96.0); PLATELET COUNT, AUTOMATED 198 10^3/uL (150-450); RED BLOOD COUNT 2.94 10^6/uL (4.30-6.10); WHITE BLOOD COUNT 7.3 10^3/uL (4.0-10.0)
[2019-04-09] MEDS: SODIUM CHLORIDE 0.9% INJ 10 ML SYR IV PRN (06:13)
[2019-04-09 07:00] LABS: BLOOD UREA NITROGEN 24 MG/DL (7-18); CARBON DIOXIDE LEVEL 34 MEQ/L (21-32); CHLORIDE LEVEL 90 MEQ/L (98-107); CREATININE FOR GFR 1.11 MG/DL (0.70-1.30); GLOMERULAR FILTRATION RATE > 60.0 (>42); GLUCOSE, FASTING 124 MG/DL (70-100); POTASSIUM SERUM 4.6 MEQ/L (3.5-5.1); SODIUM LEVEL 126 MEQ/L (136-145)
[2019-04-09] MEDS: HumaLOG INSULIN (NovoLOG) PER UNIT SC SCH ×2 (08:59→13:27)
[2019-04-09] MEDS: LEVEMIR (INSULIN DETEMIR) 1 UNITS/0.01ML SC SCH (08:59)
[2019-04-09] MEDS: FERROUS SULFATE 325MG TAB PO SCH (09:00)
[2019-04-09] MEDS: FUROSEMIDE 40 MG TAB PO SCH (09:00)
[2019-04-09] MEDS: MIRALAX *UNIT DOSE* 17GM PACKET PO SCH (09:00)
[2019-04-09] MEDS: APIXABAN 2.5 MG TAB (ELIQUIS) PO SCH (09:00)
[2019-04-09 09:01] VITALS: BP 120/62
[2019-04-09] MEDS: NYSTATIN 100,000 UNITS/GM TOPICAL PWD 15 GM TOP SCH (09:01)
[2019-04-09] MEDS: FENOFIBRATE 145 MG TAB (TRICOR) PO SCH (09:01)
[2019-04-09] MEDS: PANTOPRAZOLE 40MG TAB (PROTONIX) PO SCH (09:01)
[2019-04-09] MEDS: SPIRONOLACTONE 12.5MG PER 1/2 TABLET PO SCH (09:01)
[2019-04-09] MEDS: POTASSIUM CHLORIDE 10 MEQ SR TABLET PO SCH (09:01)
[2019-04-09] MEDS: SENOKOT S TAB PO SCH (09:01)
[2019-04-09] MEDS: MAGNESIUM OXIDE 400 MG TAB (MAG-OX) PO SCH (09:01)
[2019-04-09] MEDS: LOSARTAN 25 MG TAB PO SCH (09:01)
[2019-04-09 10:37] LABS: CHOLESTEROL LEVEL < 50 MG/DL (<200); HDL CHOLESTEROL 34 MG/DL (>40); LDL CHOLESTEROL 8 MG/DL (<100); NON-HDL-C 16 MG/DL; TRIGLYCERIDES LEVEL 40 MG/DL (<150)
--- NOTE | 2019-04-09 11:09 | DSES ---
DATE OF ADMISSION: 04/02/2019 DATE OF DISCHARGE: 04/09/2019 PRIMARY CARE PROVIDER: Dr. Leo Schreiber ATTENDING PHYSICIAN: Dr. Jem Goff HISTORY OF PRESENT ILLNESS: This is a 73-year-old gentleman who had a quite complicated hospitalization on 03/13/2019 through 03/30/2019 for small bowel obstruction and catheter related urinary tract infection with physical decompensation. The patient presented back to the facility on 04/02/2019 for complaints of weakness. He did prove positive for some dehydration. HOSPITAL COURSE: The patient was noted to have some fecal stasis which contributed to his abdominal pain. Dr. John Mead was consulted and placed patient on a bowel regimen which has seemed to improve the patient's bowels as well as abdominal pain. He has been transitioned to a regular diet. The patient is also status post consultation by Dr. Yon Jin for chronic heart failure. Please see consult note in chart. The patient's regimen was not changed by Dr. Jin. The patient has continued to improve. His abdominal pain is improved. He continues to remain weak and need rehabilitation measures by physical therapy. CONSULTATIONS: Dr. John Mead, Surgery. Dr. Yon Jin, Cardiology. IMAGING: The patient has had chest x-ray which proved no acute disease process. CT of abdomen and pelvis was positive for patient's fecal stasis throughout the colon. He is also status post tib-fib and knee x-ray for complaints of leg pain, both of which proved no acute fracture or pathology. He also had a foot CT which proved some diffuse demineralization compatible with osteoporosis, otherwise no acute processes. The patient did have an abdominal film completed on 04/05/2019 and it did also confirm continued fecal stasis and ileus pattern. The patient has remained afebrile throughout hospitalization. We have monitored his sodium levels. Unfortunately, the patient was placed on a low sodium diet and we will change that to no sodium restriction and limit his free fluid to 1000 mL until his sodium continues to correct. The patient will remain on alternate level of care (ALC) status until he is safe physically to return to home with services. MEDICATIONS AND DISCHARGE INSTRUCTIONS: Will be given at time of discharge. Edited: ramírez 04/10/2019 [id number] MTDD
== END 2019-04-09 16:15 | DRG 389 ==
LOC: EDBD 14:01 → M ED 14:01 → M ED INP 17:19 → M MS5PR 21:45
PROVIDERS: ADMIT Internal Medicine; ATTEND Family Medicine
PROC: 02HV33Z Insertion of Infusion Device into Superior Vena Cava, Percutaneous Approach (ICD-10-PCS; principal; 2019-04-02 16:10)
PROC: 30233N1 Transfusion of Nonautologous Red Blood Cells into Peripheral Vein, Percutaneous Approach (ICD-10-PCS; 2019-04-04)
DX: K56.7 Ileus, unspecified (principal); G82.20 Paraplegia, unspecified; K59.2 Neurogenic bowel, not elsewhere classified; E87.1 Hypo-osmolality and hyponatremia; I50.32 Chronic diastolic (congestive) heart failure; J98.11 Atelectasis; E86.0 Dehydration; E11.9 Type 2 diabetes mellitus without complications; M45.9 Ankylosing spondylitis of unspecified sites in spine; I11.0 Hypertensive heart disease with heart failure; N40.0 Benign prostatic hyperplasia without lower urinary tract symptoms; G43.909 Migraine, unspecified, not intractable, without status migrainosus; E88.09 Other disorders of plasma-protein metabolism, not elsewhere classified; E78.5 Hyperlipidemia, unspecified; I48.2 Chronic atrial fibrillation; G47.33 Obstructive sleep apnea (adult) (pediatric); E66.9 Obesity, unspecified; D50.9 Iron deficiency anemia, unspecified; N31.9 Neuromuscular dysfunction of bladder, unspecified; M06.9 Rheumatoid arthritis, unspecified; M79.671 Pain in right foot; Z90.49 Acquired absence of other specified parts of digestive tract; Z96.651 Presence of right artificial knee joint; Z95.0 Presence of cardiac pacemaker; Z96.641 Presence of right artificial hip joint; Z79.01 Long term (current) use of anticoagulants; Z79.4 Long term (current) use of insulin; Z79.899 Other long term (current) drug therapy; Z88.2 Allergy status to sulfonamides; Z88.5 Allergy status to narcotic agent; Z88.8 Allergy status to other drugs, medicaments and biological substances; Z91.040 Latex allergy status; Z91.048 Other nonmedicinal substance allergy status; Z87.440 Personal history of urinary (tract) infections; Z68.33 Body mass index [BMI] 33.0-33.9, adult

== ENCOUNTER 2019-04-09 16:20 | Inpatient (IN) | payer MEDICARE, MEDICAID ==
[2019-04-09 16:20] VITALS: BP 138/72
[~2019-04-09 16:20] MED LIST changes: +MIRA3350 PO
[2019-04-09] MEDS ORDERED: BISACODYL 10 MG SUPP PR PRN (18:00)
[2019-04-09] MEDS ORDERED: ACETAMINOPHEN TAB 650MG DOSE (2X325MG) PO PRN (18:00)
[2019-04-09] MEDS: BISACODYL 10 MG SUPP PR SCH (19:00)
[2019-04-09 20:10] VITALS: BP 112/54
[2019-04-09] MEDS: GABAPENTIN 300 MG CAP PO SCH (21:57)
[2019-04-09] MEDS: LEVEMIR (INSULIN DETEMIR) 1 UNITS/0.01ML SC SCH (21:57)
[2019-04-09] MEDS: DOCUSATE SODIUM 100 MG CAP PO SCH (21:57)
[2019-04-09] MEDS: SENNA 8.6 MG TAB (SENOKOT) PO SCH (21:57)
[2019-04-09] MEDS: APIXABAN 2.5 MG TAB (ELIQUIS) PO SCH (21:57)
[2019-04-09] MEDS: ATORVASTATIN 20 MG TAB PO SCH (21:57)
[2019-04-09] MEDS: PANTOPRAZOLE 40MG TAB (PROTONIX) PO SCH (21:58)
[2019-04-09] MEDS: MAGNESIUM OXIDE 400 MG TAB (MAG-OX) PO SCH (21:58)
[2019-04-09] MEDS: SOLIFENACIN 5 MG TAB PO SCH (21:58)
[2019-04-09] MEDS: POLYVINYL ALCOHOL OPHTH SOLN 15 ML(LIQUITEARS) OU SCH (21:58)
[2019-04-10] MEDS: GABAPENTIN 300 MG CAP PO SCH ×3 (05:24→22:08)
[2019-04-10] MEDS: SODIUM CHLORIDE 0.9% INJ 10 ML SYR IV SCH ×2 (05:34→17:58)
[2019-04-10 05:38] VITALS: BP 125/59
[2019-04-10 07:00] LABS: BASO % 0.4 % (0.0-1.0); EOS # 0.3 10^3/uL (0.0-0.50); EOS % 4.3 % (0.0-3.0); HEMATOCRIT 26.3 % (42.0-52.0); HEMOGLOBIN 8.6 g/dl (13.5-17.5); LYMPH # 2.1 10^3/uL (1.5-4.5); LYMPH % 28.4 % (24.0-44.0); MEAN CORPUSCULAR HEMOGLOBIN 28.3 pg (27.0-33.0); MEAN CORPUSCULAR HGB CONC 32.7 g/dl (32.0-36.5); MEAN CORPUSCULAR VOLUME 86.5 fl (80.0-96.0); MONO # 0.7 10^3/uL (0.0-0.8); NEUTROPHILS # 4.1 10^3/uL (1.8-7.7); NEUTROPHILS % 56.6 % (36.0-66.0); PLATELET COUNT, AUTOMATED 218 10^3/uL (150-450); RED BLOOD COUNT 3.04 10^6/uL (4.30-6.10); WHITE BLOOD COUNT 7.2 10^3/uL (4.0-10.0)
[2019-04-10 07:30] LABS: ALBUMIN 2.3 GM/DL (3.2-5.2); ALT/SGPT 9 U/L (12-78); BILIRUBIN,TOTAL 0.8 MG/DL (0.2-1.0); BLOOD UREA NITROGEN 27 MG/DL (7-18); CALCIUM LEVEL 8.9 MG/DL (8.8-10.2); CARBON DIOXIDE LEVEL 32 MEQ/L (21-32); CHLORIDE LEVEL 90 MEQ/L (98-107); CREATININE FOR GFR 1.16 MG/DL (0.70-1.30); GLOMERULAR FILTRATION RATE > 60.0 (>42); GLUCOSE, FASTING 125 MG/DL (70-100); POTASSIUM SERUM 4.4 MEQ/L (3.5-5.1); SODIUM LEVEL 127 MEQ/L (136-145); TOTAL PROTEIN 6.1 GM/DL (6.4-8.2)
[2019-04-10] MEDS: FENOFIBRATE 145 MG TAB (TRICOR) PO SCH (09:00)
[2019-04-10] MEDS: LEVEMIR (INSULIN DETEMIR) 1 UNITS/0.01ML SC SCH ×2 (09:00→22:10)
[2019-04-10] MEDS: MAGNESIUM OXIDE 400 MG TAB (MAG-OX) PO SCH ×2 (09:00→22:08)
[2019-04-10] MEDS: PANTOPRAZOLE 40MG TAB (PROTONIX) PO SCH ×2 (09:00→22:08)
[2019-04-10] MEDS: SPIRONOLACTONE 12.5MG PER 1/2 TABLET PO SCH (09:00)
[2019-04-10] MEDS: POTASSIUM CHLORIDE 10 MEQ SR TABLET PO SCH (09:00)
[2019-04-10] MEDS: BISACODYL 10 MG SUPP PR SCH (09:01)
[2019-04-10] MEDS: FERROUS GLUCONATE 324 MG TAB PO SCH (09:01)
[2019-04-10] MEDS: DOCUSATE SODIUM 100 MG CAP PO SCH ×2 (09:01→21:00)
[2019-04-10] MEDS: APIXABAN 2.5 MG TAB (ELIQUIS) PO SCH ×2 (09:01→22:07)
[2019-04-10] MEDS: LOSARTAN 25 MG TAB PO SCH (09:01)
[2019-04-10] MEDS: POLYVINYL ALCOHOL OPHTH SOLN 15 ML(LIQUITEARS) OU SCH ×5 (09:04→21:00)
[2019-04-10 14:00] VITALS: BP 130/78
[2019-04-10] MEDS: SODIUM CHLORIDE 1 GM TAB PO SCH ×2 (16:52→22:08)
--- NOTE | 2019-04-10 16:57 | HPEPDOC ---
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 diff with small bowel obstruction, discharged home 03/30/19 and presented back to [facility] ED on 04/02/19 complaining of vomiting and weakness. He was found to be dehydrated, received IV fluids. CXR showed, Lower lobe infiltrate may be slightly improved when compared to prior examination. He had abdominal distension with tenderness for which a CT showed, Diffusely dilated fluid-filled small bowel along with significant fecal stasis throughout the colon similar to prior examination. Differential diagnosis includes partial bowel obstruction as well as ileus. In spite of imaging findings, he was able to pass flatus . Surgery evaluated him, put him on reglan to encourage gut motility in addition to Miralax and Mg Citrate. He also complained of right knee pain for which X-rays were negative for fracture, but did show degenerative changes with effusion. CT right foot was negative for osteomyelitis. He was also evaluated by cardiology for his Afib and chronic diastolic heart failure and decreased his Eliquis dosing for blood in stool and a drop in Hgb/Hct that required blood transfusion. He also had significant hyponatremia, was put on a fluid restriction, and protein added to his diet for a suspected low oncotic pressure. He later was evaluated by therapy, found to be below his prior level of function requiring more assistance for mobility and ADl management and deemed medically appropriate for discharge to ARU on 04/09/19. REVIEW OF SYSTEMS: The following is a completed review of systems and has been reviewed. Review of systems otherwise unremarkable. PAIN: Patient self reports mild right knee pain EYES: No recent vision changes EARS, NOSE, & THROAT: No throat pain, or dysphagia, or rhinorrhea CARDIOVASCULAR: Denies chest pain or palpitations PULMONARY: Denies shortness of breath GASTROINTESTINAL: Denies constipation/diarrhea GENITOURINARY:+ neurogenic bladder MUSCULOSKELETAL: right knee pain NEUROLOGICAL:incomplete paraplegia HEMATOLOGICAL: +anemia SKIN: suprapubic rash PSYCHIATRIC: Unremarkable All other review of systems found to be negative. PAST MEDICAL HISTORY: as per HPI PAST SURGICAL HISTORY: Hemicolectomy, right TKR, right THR, suprapubic catheter 2013, thoracic decompressive surgery, pacemaker ALLERGIES: Please see below. MEDICATIONS: Please see below. SOCIAL HISTORY: lives with son, retired, no ETOH, no smoking or illicit drugs DIET:fluid restrict 1 L PHYSICAL EXAMINATION: VITAL SIGNS: Please see below. GENERAL: Pleasant and cooperative. No acute distress. HEENT: PERRL. Extraocular movements intact. Clear conjunctiva CARDIOVASCULAR: Regular rate and rhythm. No murmurs, rubs, or gallops LUNGS: Clear to auscultation bilaterally. No wheezes. No rhonchi ABDOMEN: Soft, nontender, mildly distended Positive bowel sounds. +abdominal incision c/d/i, + suprapubic catheter NEUROLOGICAL: Alert and oriented times three. Cranial nerves II through XII grossly intact. Sensation decreased to light touch mid-trunk and below EXTREMITIES: 5-\5 strength bilateral upper extremities. 3/5 right hip flexors, knee extensors, ankle AF and EHL, 4-/5 LLE +mild swelling right knee, no warmth, mild tenderness SKIN: suzy-suprapubic rash LABORATORY DATA: Please see below. IMAGING:Imaging documentation personally reviewed by record FUNCTIONAL STATUS: Premorbid: Supervision for ambulation household distances with RW, power chair for community distances, requires assistance for dressing, bathing, toileting. On Admission: Mod-min assist for functional transfers, bed mobility, dressing GOALS: Supervision for functional transfers and short distances with RW, min- standby assistance for dressing, bathing, toileting, caregiver re-education, ass ess for DME needs, medical optimization. ASSESSMENT:73-year-old M with past medical history of incomplete paraplegia with partial bowel resection who presents status post dehydration with ileus and deconditioning PLAN: 1. Rehab: PT- stretch/strenghten/maintain ROM bilat LE, improve transfers, and walking endurance OT -stretch/strenghten/maintain ROM bilat UE, teach shoulder protection exercises 2. Neuro: incomplete paraplegia, monitor for worsening function, utilize AFO for foot drop 3. CArdiac: diastolic chronic CHF with Afib, c/u lower dose Eliquis in setting of recent GI bleed and drop in Hgb/Hct, c/u aldactonr -htn- c/u SOO, medicine consulted to assist in management -hld c/u statin and Tricor 4. resp: encourage incentive spirometry, LEEANN- c/u CPAP 5. Hyponatremia- c/u fluid restriction, c/u to hold Lasix, will consider NaCl supplements 6. Heme: anemia due to chronic disease likely and GI loss, will monitor and transfuse if <8 7. endo: DM c/u insulin coverage and adjust prn 8. - neurogenic bladder, c/u suprapubic cath care 9. GI: neurogenic bowel, c/u bowel regiment, monitor for signs of obstruction 10. Skin: turm q2 in bed, zinc to sacrum, nystatin powder to lower abdomen 11. DVT ppx: TEDs and on Elqiuis POST ADMISSION PHYSICIAN EVALUATION: Medical and functional status: Description of medical status, medical assessment: As above. Rehabilitation diagnosis and current and prior cold morbid medical conditions as above. Risk of complications and plans to mitigate them as above. Description of functional status current status is as above. Prior status as above. Status compared to preadmission: There are no clinically significant differences between the patient's current status and the information described on the preadmission screening document. Treatment plan anticipated: Treatment plan is as described above. Required disciplines including physical therapy, occupational therapy, others as noted above Intensity of services: 3 hours a day, 6 days a week. Special considerations: There are no specific special or safety considerations that would likely preclude immediate implementation of an intensive rehabilitation program or subsequently influence the plan of care. ATTESTATION: Considering all the information above, it is my best judgment that this patient requires intensive rehabilitation therapy as described above and an inpatient hospital environment due to the complexity of nursing, medical, and rehabilitation needs required by the patient. Furthermore, this patient can reasonably be expected to participate in an benefit from an inpatient rehabilitation stay with an interdisciplinary team approach to the delivery of rehabilitation care under the direction and supervision of rehabilitation physician. PROGNOSIS: good ESTIMATED LENGTH OF STAY:14-16 days. PROJECTED DISCHARGE DESTINATION: Home with family support and any durable medical equipment required to increase functional safety and mobility TIME SPENT COUNSELING AND COORDINATING INITIAL CARE: Greater than 70 minutes. Vital Signs Vital Sign - Last 24 Hours 04/09/19 04/10/19 04/10/19 04/10/19 20:10 05:38 09:01 14:00 Temp 98.9 98.1 96.0 Pulse 76 67 75 Resp 18 18 22 B/P (MAP) 112/54 (73) 125/59 (81) 125/59 130/78 (95) Pulse Ox 96 96 97 Laboratory Data CBC/BMP Laboratory Tests 04/10/19 05:32 Red Blood Count 3.04 L, Mean Corpuscular Volume 86.5, Mean Corpuscular Hemoglobin 28.3, Mean Corpuscular Hemoglobin Concent 32.7, Red Cell Distribution Width 13.9, Neutrophils (%) (Auto) 56.6, Lymphocytes (%) (Auto) 28.4, Monocytes (%) (Auto) 10.0 H, Eosinophils (%) (Auto) 4.3 H, Basophils (%) (Auto) 0.4, Neutrophils # (Auto) 4.1, Lymphocytes # (Auto) 2.1, Monocytes # (Auto) 0.7, Eosinophils # (Auto) 0.3, Basophils # (Auto) 0.0, Calcium Level 8.9, Aspartate Amino Transf (AST/SGOT) 11, Alanine Aminotransferase (ALT/SGPT) 9 L, Alkaline Phosphatase 81, Total Bilirubin 0.8, Total Protein 6.1 L, Albumin 2.3 L Labs 24H Laboratory Tests 2 04/10/19 05:32: Immature Granulocyte % (Auto) 0.3, White Blood Count 7.2, Red Blood Count 3.04L, Hemoglobin 8.6L, Hematocrit 26.3L, Mean Corpuscular Volume 86.5, Mean Corpuscular Hemoglobin 28.3, Mean Corpuscular Hemoglobin Concent 32.7, Red Cell Distribution Width 13.9, Platelet Count 218, Neutrophils (%) (Auto) 56.6, Lymphocytes (%) (Auto) 28.4, Monocytes (%) (Auto) 10.0H, Eosinophils (%) (Auto) 4.3H, Basophils (%) (Auto) 0.4, Neutrophils # (Auto) 4.1, Lymphocytes # (Auto) 2.1, Monocytes # (Auto) 0.7, Eosinophils # (Auto) 0.3, Basophils # (Auto) 0.0, Nucleated Red Blood Cells % (auto) 0.0, Anion Gap 5L, Glomerular Filtration Rate > 60.0, Blood Urea Nitrogen 27H, Creatinine 1.16, Sodium Level 127L, Potassium Level 4.4, Chloride Level 90L, Carbon Dioxide Level 32, Calcium Level 8.9, Aspartate Amino Transf (AST/SGOT) 11, Alanine Aminotransferase (ALT/SGPT) 9L, Alkaline Phosphatase 81, Total Bilirubin 0.8, Total Protein 6.1L, Albumin 2.3L, Albumin/Globulin Ratio 0.61L Home Medications Scheduled Apixaban (Eliquis) 5 Mg Tab, 5 MG PO BID, (Reported) Atorvastatin Calcium (Atorvastatin Calcium) 40 Mg Tab, 40 MG PO QHS, (Reported) Baclofen (Baclofen) 10 Mg Tablet, 10 MG PO TID, (Reported) Docusate Sodium (Colace) 100 Mg Capsule, 100 MG PO BID Ergocalciferol (Vitamin D2) (Drisdol) 50,000 Unit Capsule, 50,000 UNIT PO QWEEK, (Reported) SUNDAYS Fenofibrate Nanocrystallized (Fenofibrate) 145 Mg Tab, 145 MG PO DAILY, (Reported) Gabapentin (Gabapentin) 600 Mg Tab, 600 MG PO TID, (Reported) Insulin Glargine,Hum.rec.anlog (Lantus Solostar) 100 Unit/Ml Inj, 20 UNITS SC QAM, (Reported) Insulin Glargine,Hum.rec.anlog (Lantus Solostar) 100 Unit/1 Ml Insuln.pen, 8 UNITS SC QHS, (Reported) Insulin Human Lispro (Humalog) 1 Units/0.01 Ml Inj, 1 DOSE SC AC, (Reported) PER SLIDING SCALE L.acidoph/L.bulg/B.bif/S.therm (Bacid Caplet) 1 Tab Tab, 1 TAB PO BID, (Reported) Loratadine (Loratadine) 10 Mg Tab, 10 MG PO QHS, (Reported) Magnesium Oxide (Magnesium Oxide) 400 Mg Tab, 400 MG PO BID, (Reported) Pantoprazole Sodium (Pantoprazole Sodium) 40 Mg Tab, 40 MG PO DAILY, (Reported) Solifenacin Succinate (Vesicare) 10 Mg Tab, 10 MG PO QHS, (Reported) Spironolactone (Spironolactone) 25 Mg Tablet, 12.5 MG PO DAILY, (Reported) Scheduled PRN Bisacodyl (Bisacodyl) 10 Mg Sup, 10 MG FL DAILY PRN for CONSTIPATION, (Reported) Clotrimazole (Clotrimazole) 1 % Cre, 1 DOSE TOP BID PRN for RASH/ITCHING, (Reported) APPLY TO GROIN AREA Nitroglycerin (Nitrostat) 0.4 Mg Subl, 0.4 MG SL NITRO PRN for CHEST PAIN, (Reported) Nystatin (Nystatin Powder) 100,000 Unit/Gm Pow, 1 DOSE TOP BID PRN for RASH/ITCHING, (Reported) APPLY TO GROIN AREA Polyethylene Glycol 3350 (Miralax) 119 Gm Powder, 17 GM PO DAILY PRN for CONSTIPATION, (Reported) dilute in 8 ounces of water or juice Simethicone (Simethicone) 180 Mg Capsule, 180 MG PO QIDP PRN for GAS PAIN, ( Reported) Allergies Coded Allergies: Sulfa (Sulfonamide Antibiotics) (Verified Allergy, Intermediate, hives, 12/20/18) alcohol (Verified Allergy, Intermediate, soap rash, 12/20/18) carisoprodol (Verified Allergy, Intermediate, hives, 12/20/18) gum mastic (Verified Allergy, Intermediate, soap rash, 12/20/18) purell mosture therapy latex (Verified Allergy, Intermediate, rash, 12/20/18) methyl salicylate (Verified Allergy, Intermediate, soap rash, 12/20/18) methylparaben (Verified Allergy, Intermediate, hives, 12/20/18) morphine (Verified Allergy, Intermediate, HIVES RASH AT SITE LIKELY HISTAMINE RELEASE, 12/20/18) storax (Verified Allergy, Intermediate, soap rash, 12/20/18) SOO Inhibitors (Verified Allergy, Unknown, 12/20/18) TAPE (Verified Allergy, Unknown, STERISTRIPS, 02/10/18) hydrochlorothiazide (Verified Allergy, Unknown, unsure of reaction, 12/20/18) nitrofurantoin (Verified Adverse Reaction, Mild, diarrhea, 12/20/18) A-FIB/CHADSVASC A-FIB History Current/History of A-Fib/PAF?: Yes Current PO Anticoag Therapy: Yes MARY LEON MD Apr 10, 2019 16:57
--- NOTE | 2019-04-10 16:58 | IPNPDOC ---
PM&R Progress Note DATE OF SERVICE: Apr 10, 2019 Chief Innovation Officer Progress Note Subjective: PAtient reporting he still feels a sense of an ache in his right calf. he is having bowel movements and denies any nausea or abdominal discomfort. REVIEW OF SYSTEMS: The following is a completed review of systems and has been reviewed. Review of systems otherwise unremarkable. PAIN: Patient self reports mild right knee pain EYES: No recent vision changes EARS, NOSE, & THROAT: No throat pain, or dysphagia, or rhinorrhea CARDIOVASCULAR: Denies chest pain or palpitations PULMONARY: Denies shortness of breath GASTROINTESTINAL: Denies constipation/diarrhea GENITOURINARY:+ neurogenic bladder MUSCULOSKELETAL: right knee pain NEUROLOGICAL:incomplete paraplegia HEMATOLOGICAL: +anemia SKIN: suprapubic rash PSYCHIATRIC: Unremarkable All other review of systems found to be negative. PHYSICAL EXAMINATION: VITAL SIGNS: Please see below. GENERAL: Pleasant and cooperative. No acute distress. HEENT: PERRL. Extraocular movements intact. Clear conjunctiva CARDIOVASCULAR: Regular rate and rhythm. No murmurs, rubs, or gallops LUNGS: Clear to auscultation bilaterally. No wheezes. No rhonchi ABDOMEN: Soft, nontender, mildly distended Positive bowel sounds. +abdominal incision c/d/i, + suprapubic catheter NEUROLOGICAL: Alert and oriented times three. Cranial nerves II through XII grossly intact. Sensation decreased to light touch mid-trunk and below EXTREMITIES: 5-\5 strength bilateral upper extremities. 3/5 right hip flexors, knee extensors, ankle AF and EHL, 4-/5 LLE +mild swelling right knee, no warmth, mild tenderness ASSESSMENT:73-year-old M with past medical history of incomplete paraplegia with partial bowel resection who presents status post dehydration with ileus and deconditioning PLAN: 1. Rehab: PT- stretch/strenghten/maintain ROM bilat LE, improve transfers, and walking endurance OT -stretch/strenghten/maintain ROM bilat UE, teach shoulder protection exercises 2. Neuro: incomplete paraplegia, monitor for worsening function, utilize AFO for foot drop 3. CArdiac: diastolic chronic CHF with Afib, c/u lower dose Eliquis in setting of recent GI bleed and drop in Hgb/Hct, c/u aldactone -htn- c/u SOO, medicine consulted to assist in management -hld c/u statin and Tricor 4. resp: encourage incentive spirometry, LEEANN- c/u CPAP 5. Hyponatremia- improving, c/u fluid restriction, c/u to hold Lasix, will add NaCl supplements 6. Heme: anemia due to chronic disease likely and GI loss, will monitor and transfuse if <8 7. endo: DM c/u insulin coverage and adjust prn 8. - neurogenic bladder, c/u suprapubic cath care 9. GI: neurogenic bowel, c/u bowel regiment, monitor for signs of obstruction 10. Skin: turm q2 in bed, zinc to sacrum, nystatin powder to lower abdomen 11. DVT ppx: TEDs and on Elqiuis 12. Dispo: TBD Allergies Coded Allergies: Sulfa (Sulfonamide Antibiotics) (Verified Allergy, Intermediate, hives, 12/20/18) alcohol (Verified Allergy, Intermediate, soap rash, 12/20/18) carisoprodol (Verified Allergy, Intermediate, hives, 12/20/18) gum mastic (Verified Allergy, Intermediate, soap rash, 12/20/18) purell mosture therapy latex (Verified Allergy, Intermediate, rash, 12/20/18) methyl salicylate (Verified Allergy, Intermediate, soap rash, 12/20/18) methylparaben (Verified Allergy, Intermediate, hives, 12/20/18) morphine (Verified Allergy, Intermediate, HIVES RASH AT SITE LIKELY HISTAMINE RELEASE, 12/20/18) storax (Verified Allergy, Intermediate, soap rash, 12/20/18) SOO Inhibitors (Verified Allergy, Unknown, 12/20/18) TAPE (Verified Allergy, Unknown, STERISTRIPS, 02/10/18) hydrochlorothiazide (Verified Allergy, Unknown, unsure of reaction, 12/20/18) nitrofurantoin (Verified Adverse Reaction, Mild, diarrhea, 12/20/18) Vital Signs Vital Signs Date Time Temp Pulse Resp B/P (MAP) Pulse Ox O2 Delivery O2 Flow Rate FiO2 04/10/19 14:00 96.0 75 22 130/78 (95) 97 Laboratory Data CBC/BMP Laboratory Tests 04/10/19 05:32 Red Blood Count 3.04 L, Mean Corpuscular Volume 86.5, Mean Corpuscular Hemoglobin 28.3, Mean Corpuscular Hemoglobin Concent 32.7, Red Cell Distribution Width 13.9, Neutrophils (%) (Auto) 56.6, Lymphocytes (%) (Auto) 28.4, Monocytes (%) (Auto) 10.0 H, Eosinophils (%) (Auto) 4.3 H, Basophils (%) (Auto) 0.4, Neutrophils # (Auto) 4.1, Lymphocytes # (Auto) 2.1, Monocytes # (Auto) 0.7, Eosinophils # (Auto) 0.3, Basophils # (Auto) 0.0, Calcium Level 8.9, Aspartate Amino Transf (AST/SGOT) 11, Alanine Aminotransferase (ALT/SGPT) 9 L, Alkaline Phosphatase 81, Total Bilirubin 0.8, Total Protein 6.1 L, Albumin 2.3 L Labs 24H Laboratory Tests 2 04/10/19 05:32: Immature Granulocyte % (Auto) 0.3, White Blood Count 7.2, Red Blood Count 3.04L, Hemoglobin 8.6L, Hematocrit 26.3L, Mean Corpuscular Volume 86.5, Mean Corpuscular Hemoglobin 28.3, Mean Corpuscular Hemoglobin Concent 32.7, Red Cell Distribution Width 13.9, Platelet Count 218, Neutrophils (%) (Auto) 56.6, Lymphocytes (%) (Auto) 28.4, Monocytes (%) (Auto) 10.0H, Eosinophils (%) (Auto) 4.3H, Basophils (%) (Auto) 0.4, Neutrophils # (Auto) 4.1, Lymphocytes # (Auto) 2.1, Monocytes # (Auto) 0.7, Eosinophils # (Auto) 0.3, Basophils # (Auto) 0.0, Nucleated Red Blood Cells % (auto) 0.0, Anion Gap 5L, Glomerular Filtration Rate > 60.0, Blood Urea Nitrogen 27H, Creatinine 1.16, Sodium Level 127L, Potassium Level 4.4, Chloride Level 90L, Carbon Dioxide Level 32, Calcium Level 8.9, Aspartate Amino Transf (AST/SGOT) 11, Alanine Aminotransferase (ALT/SGPT) 9L, Alkaline Phosphatase 81, Total Bilirubin 0.8, Total Protein 6.1L, Albumin 2.3L, Albumin/Globulin Ratio 0.61L Current Medications Current Medications Current Medications Medications (Trade) Dose Ordered Sig/Rick Route PRN Reason Start Time Stop Time Status Last Admin Dose Admin Acetaminophen (Tylenol Tab) 650 mg Q6HP PRN PO PAIN / FEVER 04/09/19 18:00 04/10/19 14:29 Apixaban (Eliquis) 2.5 mg BID PO 04/09/19 21:00 04/10/19 09:01 Artificial Tears (Akwa Tears) 2 drop QID OU 04/09/19 21:00 04/10/19 13:19 Atorvastatin Calcium (Lipitor) 40 mg QHS PO 04/09/19 21:00 04/09/19 21:57 Bisacodyl (Dulcolax Suppository) 10 mg DAILY [place] 04/09/19 19:00 04/10/19 09:01 Bisacodyl (Dulcolax Suppository) 10 mg DAILYPRN PRN [place] CONSTIPATION 04/09/19 18:00 Docusate Sodium (Colace) 100 mg BID PO 04/09/19 21:00 04/10/19 09:01 Fenofibrate (Tricor) 145 mg DAILY PO 04/10/19 09:00 04/10/19 09:00 Ferrous Gluconate (Fergon) 324 mg DAILY PO 04/10/19 09:00 04/10/19 09:01 Gabapentin (Neurontin) 600 mg Q8H PO 04/09/19 22:00 04/10/19 13:17 Heparin Sodium (Heparin (Flush)) 200 units ASDIRECTED PRN IV SEE LABEL COMMENTS 04/09/19 22:45 Heparin Sodium (Heparin (Flush)) 200 units PICC IV 04/10/19 06:00 04/10/19 05:34 Insulin Detemir (Levemir Insulin) 5 units BID SC 04/09/19 21:00 04/10/19 09:00 Losartan Potassium (Cozaar) 12.5 mg DAILY PO 04/10/19 09:00 04/10/19 09:01 Magnesium Oxide (Mag-Ox) 400 mg BID PO 04/09/19 21:00 04/10/19 09:00 Pantoprazole Sodium (Protonix) 40 mg BID PO 04/09/19 21:00 04/10/19 09:00 Potassium Chloride (Micro-K Extencaps) 20 meq DAILY PO 04/10/19 09:00 04/10/19 09:00 Senna (Senokot) 1 tab QHS PO 04/09/19 21:00 04/09/19 21:57 Sodium Chloride (Saline Lock Flush) 10 ml ASDIRECTED PRN IV SEE LABEL COMMENTS 04/09/19 22:45 Sodium Chloride (Saline Lock Flush) 10 ml PICC IV 04/10/19 06:00 04/10/19 05:34 Sodium Chloride (Sodium Chloride) 1 gm TID PO 04/10/19 16:00 Solifenacin (Vesicare) 10 mg QHS PO 04/09/19 21:00 04/09/19 21:58 Spironolactone (Aldactone) 12.5 mg DAILY PO 04/10/19 09:00 04/10/19 09:00 MARY LEON MD Apr 10, 2019 16:58
[2019-04-10 20:00] VITALS: BP 126/63
[2019-04-10] MEDS: ATORVASTATIN 20 MG TAB PO SCH (22:07)
[2019-04-10] MEDS: SOLIFENACIN 5 MG TAB PO SCH (22:07)
[2019-04-10] MEDS: SENNA 8.6 MG TAB (SENOKOT) PO SCH (22:08)
[2019-04-10] MEDS: NYSTATIN 100,000 UNITS/GM TOPICAL PWD 15 GM TOP SCH (22:09)
[2019-04-10] MEDS: BOUDREAUX'S BUTT PASTE TOP SCH (22:09)
[2019-04-11 05:21] VITALS: BP 125/64
[2019-04-11] MEDS: GABAPENTIN 300 MG CAP PO SCH ×3 (06:03→22:32)
[2019-04-11] MEDS: SODIUM CHLORIDE 0.9% INJ 10 ML SYR IV SCH ×2 (06:03→17:55)
--- NOTE | 2019-04-11 07:16 | IPNPDOC ---
Subjective Date Seen The patient was seen on 04/11/19. Subjective Chief Complaint/HPI ARU patient Assessment /Plan Problems (1) Hyponatremia Status: Acute Problem Text: Recommending no sodium restriction in diet and continue with free water restriction: 7032-5240 ml daily. (2) T2DM (type 2 diabetes mellitus) Status: Chronic Problem Text: diabetic diet recommended (3) Chronic atrial fibrillation Status: Chronic Problem Text: continue Apixiban and monitor rate control. (4) HTN (hypertension) Status: Chronic Plan/VTE VTE Prophylaxis Ordered?: Yes VS, I&O, 24H, Fishbone Vital Signs/I&O Vital Signs Date Time Temp Pulse Resp B/P (MAP) Pulse Ox O2 Delivery O2 Flow Rate FiO2 04/11/19 05:21 97.5 77 18 125/64 (84) 96 I&O- Last 24 Hours up to 6 AM 04/11/19 05:59 Intake Total 958 ml Output Total 2075 ml Balance -1117 ml Laboratory Data 24H LABS Laboratory Tests 2 04/11/19 06:45: CBC/BMP Katarina Langford FENCE SUPERVISOR Apr 11, 2019 07:16
[2019-04-11 07:26] LABS: ALBUMIN 2.2 GM/DL (3.2-5.2); BLOOD UREA NITROGEN 23 MG/DL (7-18); CALCIUM LEVEL 8.8 MG/DL (8.8-10.2); CARBON DIOXIDE LEVEL 32 MEQ/L (21-32); CHLORIDE LEVEL 94 MEQ/L (98-107); GLOMERULAR FILTRATION RATE > 60.0 (>42); GLUCOSE, FASTING 130 MG/DL (70-100); PHOSPHORUS LEVEL 2.2 MG/DL (2.5-4.9); POTASSIUM SERUM 4.6 MEQ/L (3.5-5.1); SODIUM LEVEL 130 MEQ/L (136-145)
[2019-04-11] MEDS: POLYVINYL ALCOHOL OPHTH SOLN 15 ML(LIQUITEARS) OU SCH ×4 (10:14→20:23)
[2019-04-11] MEDS: NYSTATIN 100,000 UNITS/GM TOPICAL PWD 15 GM TOP SCH ×2 (10:14→20:23)
[2019-04-11] MEDS: PANTOPRAZOLE 40MG TAB (PROTONIX) PO SCH ×2 (10:14→20:22)
[2019-04-11] MEDS: MAGNESIUM OXIDE 400 MG TAB (MAG-OX) PO SCH ×2 (10:15→20:22)
[2019-04-11] MEDS: FERROUS GLUCONATE 324 MG TAB PO SCH (10:15)
[2019-04-11] MEDS: DOCUSATE SODIUM 100 MG CAP PO SCH ×2 (10:15→20:22)
[2019-04-11] MEDS: LOSARTAN 25 MG TAB PO SCH (10:15)
[2019-04-11] MEDS: FENOFIBRATE 145 MG TAB (TRICOR) PO SCH (10:15)
[2019-04-11] MEDS: POTASSIUM CHLORIDE 10 MEQ SR TABLET PO SCH (10:15)
[2019-04-11] MEDS: APIXABAN 2.5 MG TAB (ELIQUIS) PO SCH ×2 (10:15→20:22)
[2019-04-11] MEDS: BISACODYL 10 MG SUPP PR SCH (10:16)
[2019-04-11] MEDS: SODIUM CHLORIDE 1 GM TAB PO SCH ×3 (10:16→20:22)
[2019-04-11] MEDS: LEVEMIR (INSULIN DETEMIR) 1 UNITS/0.01ML SC SCH ×2 (10:16→20:23)
[2019-04-11] MEDS: SPIRONOLACTONE 12.5MG PER 1/2 TABLET PO SCH (10:16)
[2019-04-11] MEDS: BOUDREAUX'S BUTT PASTE TOP SCH ×2 (10:19→20:23)
--- NOTE | 2019-04-11 10:42 | IPNPDOC ---
PM&R Progress Note DATE OF SERVICE: Apr 11, 2019 Supervisor Agricultural Education Progress Note Subjective: Patient asking to have his SPC changed and wondering if he can be seen by the aviation ordnance officer. He also wants to the know the results of his recent echo. REVIEW OF SYSTEMS: The following is a completed review of systems and has been reviewed. Review of systems otherwise unremarkable. PAIN: Patient self reports mild right knee pain EYES: No recent vision changes EARS, NOSE, & THROAT: No throat pain, or dysphagia, or rhinorrhea CARDIOVASCULAR: Denies chest pain or palpitations PULMONARY: Denies shortness of breath GASTROINTESTINAL: Denies constipation/diarrhea GENITOURINARY:+ neurogenic bladder MUSCULOSKELETAL: right knee pain NEUROLOGICAL:incomplete paraplegia HEMATOLOGICAL: +anemia SKIN: suprapubic rash PSYCHIATRIC: Unremarkable All other review of systems found to be negative. PHYSICAL EXAMINATION: VITAL SIGNS: Please see below. GENERAL: Pleasant and cooperative. No acute distress. HEENT: PERRL. Extraocular movements intact. Clear conjunctiva CARDIOVASCULAR: Regular rate and rhythm. No murmurs, rubs, or gallops LUNGS: Clear to auscultation bilaterally. No wheezes. No rhonchi ABDOMEN: Soft, nontender, mildly distended Positive bowel sounds. +abdominal incision c/d/i, + suprapubic catheter NEUROLOGICAL: Alert and oriented times three. Cranial nerves II through XII grossly intact. Sensation decreased to light touch mid-trunk and below EXTREMITIES: 5-\5 strength bilateral upper extremities. 3/5 right hip flexors, knee extensors, ankle AF and EHL, 4-/5 LLE +mild swelling right knee, no warmth, mild tenderness ASSESSMENT:73-year-old M with past medical history of incomplete paraplegia with partial bowel resection who presents status post dehydration with ileus and deconditioning PLAN: 1. Rehab: PT- stretch/strenghten/maintain ROM bilat LE, improve transfers, and walking endurance OT -stretch/strenghten/maintain ROM bilat UE, teach shoulder protection exercises 2. Neuro: incomplete paraplegia, monitor for worsening function, utilize AFO for foot drop 3. CArdiac: diastolic chronic CHF with Afib, c/u lower dose Eliquis in setting of recent GI bleed and drop in Hgb/Hct, c/u aldactone -htn- c/u SOO, medicine consulted to assist in management -hld c/u statin and Tricor 4. resp: encourage incentive spirometry, LEEANN- c/u CPAP 5. Hyponatremia- improving, c/u fluid restriction, c/u to hold Lasix, c/u NaCl supplements 6. Heme: anemia due to chronic disease likely and GI loss, will monitor and transfuse if <8 7. endo: DM c/u insulin coverage and adjust prn 8. - neurogenic bladder, c/u suprapubic cath care- discussed with Dr. Hickey, ok to change on floor, will start suzy-procedure Levaquin 9. GI: neurogenic bowel, c/u bowel regiment, monitor for signs of obstruction 10. Skin: turm q2 in bed, zinc to sacrum, nystatin powder to lower abdomen 11. DVT ppx: TEDs and on Elqiuis 12. MSK: right knee effusion, most likely degenerative, able to passively range, will order ice, topical steroid cream and topical lidocaine, will change tylenol to standing 12. Dispo: TBD Allergies Coded Allergies: Sulfa (Sulfonamide Antibiotics) (Verified Allergy, Intermediate, hives, 12/20/18) alcohol (Verified Allergy, Intermediate, soap rash, 12/20/18) carisoprodol (Verified Allergy, Intermediate, hives, 12/20/18) gum mastic (Verified Allergy, Intermediate, soap rash, 12/20/18) purell mosture therapy latex (Verified Allergy, Intermediate, rash, 12/20/18) methyl salicylate (Verified Allergy, Intermediate, soap rash, 12/20/18) methylparaben (Verified Allergy, Intermediate, hives, 12/20/18) morphine (Verified Allergy, Intermediate, HIVES RASH AT SITE LIKELY HISTAMINE RELEASE, 12/20/18) storax (Verified Allergy, Intermediate, soap rash, 12/20/18) SOO Inhibitors (Verified Allergy, Unknown, 12/20/18) TAPE (Verified Allergy, Unknown, STERISTRIPS, 02/10/18) hydrochlorothiazide (Verified Allergy, Unknown, unsure of reaction, 12/20/18) nitrofurantoin (Verified Adverse Reaction, Mild, diarrhea, 12/20/18) Vital Signs Vital Signs Date Time Temp Pulse Resp B/P (MAP) Pulse Ox O2 Delivery O2 Flow Rate FiO2 04/11/19 10:15 125/64 04/11/19 05:21 97.5 77 18 96 Laboratory Data CBC/BMP Laboratory Tests 04/11/19 06:45 Anion Gap 4 L Labs 24H Laboratory Tests 2 04/11/19 06:45: Blood Urea Nitrogen 23H, Creatinine 1.10, Sodium Level 130L, Potassium Level 4.6, Chloride Level 94L, Carbon Dioxide Level 32, Anion Gap 4L, Glomerular Filtration Rate > 60.0, Calcium Level 8.8, Phosphorus Level 2.2L, Albumin 2.2L Current Medications Current Medications Current Medications Medications (Trade) Dose Ordered Sig/Rick Route PRN Reason Start Time Stop Time Status Last Admin Dose Admin Acetaminophen (Tylenol Tab) 650 mg Q6HP PRN PO PAIN / FEVER 04/09/19 18:00 04/10/19 14:29 Apixaban (Eliquis) 2.5 mg BID PO 04/09/19 21:00 04/11/19 10:15 Artificial Tears (Akwa Tears) 2 drop QID OU 04/09/19 21:00 04/11/19 10:14 Atorvastatin Calcium (Lipitor) 40 mg QHS PO 04/09/19 21:00 04/10/19 22:07 Bisacodyl (Dulcolax Suppository) 10 mg DAILY [place] 04/09/19 19:00 04/11/19 10:16 Bisacodyl (Dulcolax Suppository) 10 mg DAILYPRN PRN [place] CONSTIPATION 04/09/19 18:00 Docusate Sodium (Colace) 100 mg BID PO 04/09/19 21:00 04/11/19 10:15 Fenofibrate (Tricor) 145 mg DAILY PO 04/10/19 09:00 04/11/19 10:15 Ferrous Gluconate (Fergon) 324 mg DAILY PO 04/10/19 09:00 04/11/19 10:15 Gabapentin (Neurontin) 600 mg Q8H PO 04/09/19 22:00 04/11/19 06:03 Heparin Sodium (Heparin (Flush)) 200 units ASDIRECTED PRN IV SEE LABEL COMMENTS 04/09/19 22:45 Heparin Sodium (Heparin (Flush)) 200 units PICC IV 04/10/19 06:00 04/11/19 06:03 Insulin Detemir (Levemir Insulin) 5 units BID SC 04/09/19 21:00 04/11/19 10:16 Losartan Potassium (Cozaar) 12.5 mg DAILY PO 04/10/19 09:00 04/11/19 10:15 Magnesium Oxide (Mag-Ox) 400 mg BID PO 04/09/19 21:00 04/11/19 10:15 Nystatin (Mycostatin Powder, Nystop) apply to suzy-suprapubic area BID TOP 04/10/19 21:00 04/11/19 10:14 Pantoprazole Sodium (Protonix) 40 mg BID PO 04/09/19 21:00 04/11/19 10:14 Potassium Chloride (Micro-K Extencaps) 20 meq DAILY PO 04/10/19 09:00 04/11/19 10:15 Senna (Senokot) 1 tab QHS PO 04/09/19 21:00 04/10/19 22:08 Sodium Chloride (Saline Lock Flush) 10 ml ASDIRECTED PRN IV SEE LABEL COMMENTS 04/09/19 22:45 Sodium Chloride (Saline Lock Flush) 10 ml PICC IV 04/10/19 06:00 04/11/19 06:03 Sodium Chloride (Sodium Chloride) 1 gm TID PO 04/10/19 16:00 04/11/19 10:16 Solifenacin (Vesicare) 10 mg QHS PO 04/09/19 21:00 04/10/19 22:07 Spironolactone (Aldactone) 12.5 mg DAILY PO 04/10/19 09:00 04/11/19 10:16 Zinc Oxide (Boudreauxs Butt Paste) to sacrum BID TOP 04/10/19 21:00 04/11/19 10:19 MARY LEON MD Apr 11, 2019 10:42
[2019-04-11] MEDS ORDERED: DEXTROSE 50% 50 ML SYRINGE IV PRN (10:45)
[2019-04-11] MEDS ORDERED: GLUCOSE 4 GM CHEW TABLET PO PRN (10:45)
[2019-04-11] MEDS ORDERED: GLUCAGON FOR INJ 1 MG VIAL (J1610) SC PRN (10:45)
[2019-04-11] MEDS: ACETAMINOPHEN TAB 650MG DOSE (2X325MG) PO SCH ×3 (11:30→20:24)
[2019-04-11] MEDS: HumaLOG INSULIN (NovoLOG) PER UNIT SC SCH ×3 (11:34→21:00)
[2019-04-11 14:00] VITALS: BP 109/54
[2019-04-11] MEDS: LevoFLOXacin 500 MG TABLET PO SCH (17:55)
[2019-04-11] MEDS: ATORVASTATIN 20 MG TAB PO SCH (20:22)
[2019-04-11] MEDS: SOLIFENACIN 5 MG TAB PO SCH (20:22)
[2019-04-11] MEDS: SENNA 8.6 MG TAB (SENOKOT) PO SCH (20:22)
[2019-04-11] MEDS: LIDOCAINE 5% OINT 30 GM TOP SCH (20:23)
[2019-04-11 21:00] VITALS: BP 98/51
[2019-04-12] MEDS: GABAPENTIN 300 MG CAP PO SCH ×3 (05:33→22:49)
[2019-04-12] MEDS: SODIUM CHLORIDE 0.9% INJ 10 ML SYR IV SCH ×2 (05:33→16:51)
[2019-04-12 06:00] VITALS: BP 114/55
[2019-04-12 06:34] LABS: ALBUMIN 2.2 GM/DL (3.2-5.2); BLOOD UREA NITROGEN 25 MG/DL (7-18); CALCIUM LEVEL 8.7 MG/DL (8.8-10.2); CARBON DIOXIDE LEVEL 32 MEQ/L (21-32); CHLORIDE LEVEL 97 MEQ/L (98-107); CREATININE FOR GFR 1.11 MG/DL (0.70-1.30); GLOMERULAR FILTRATION RATE > 60.0 (>42); GLUCOSE, FASTING 120 MG/DL (70-100); PHOSPHORUS LEVEL 2.7 MG/DL (2.5-4.9); POTASSIUM SERUM 4.8 MEQ/L (3.5-5.1); SODIUM LEVEL 131 MEQ/L (136-145)
[2019-04-12] MEDS: PANTOPRAZOLE 40MG TAB (PROTONIX) PO SCH ×2 (08:16→22:49)
[2019-04-12] MEDS: ACETAMINOPHEN TAB 650MG DOSE (2X325MG) PO SCH ×3 (08:16→22:50)
[2019-04-12] MEDS: LEVEMIR (INSULIN DETEMIR) 1 UNITS/0.01ML SC SCH ×2 (08:16→22:51)
[2019-04-12] MEDS: HumaLOG INSULIN (NovoLOG) PER UNIT SC SCH ×4 (08:16→21:00)
[2019-04-12] MEDS: MAGNESIUM OXIDE 400 MG TAB (MAG-OX) PO SCH ×2 (08:19→22:50)
[2019-04-12] MEDS: LOSARTAN 25 MG TAB PO SCH (08:19)
[2019-04-12] MEDS: DOCUSATE SODIUM 100 MG CAP PO SCH ×2 (08:20→21:00)
[2019-04-12] MEDS: APIXABAN 2.5 MG TAB (ELIQUIS) PO SCH ×2 (08:20→22:49)
[2019-04-12] MEDS: POTASSIUM CHLORIDE 10 MEQ SR TABLET PO SCH (08:20)
[2019-04-12] MEDS: FERROUS GLUCONATE 324 MG TAB PO SCH (08:20)
[2019-04-12] MEDS: SPIRONOLACTONE 12.5MG PER 1/2 TABLET PO SCH (08:20)
[2019-04-12] MEDS: SODIUM CHLORIDE 1 GM TAB PO SCH ×3 (08:20→22:50)
[2019-04-12] MEDS: POLYVINYL ALCOHOL OPHTH SOLN 15 ML(LIQUITEARS) OU SCH ×4 (08:22→22:51)
[2019-04-12] MEDS: FENOFIBRATE 145 MG TAB (TRICOR) PO SCH (08:22)
[2019-04-12] MEDS: BOUDREAUX'S BUTT PASTE TOP SCH (08:22)
[2019-04-12] MEDS: BISACODYL 10 MG SUPP PR SCH (08:22)
[2019-04-12] MEDS: LIDOCAINE 5% OINT 30 GM TOP SCH ×2 (08:23→21:00)
[2019-04-12] MEDS: NYSTATIN 100,000 UNITS/GM TOPICAL PWD 15 GM TOP SCH ×2 (08:23→22:51)
--- NOTE | 2019-04-12 11:47 | IPNPDOC ---
PM&R Progress Note DATE OF SERVICE: Apr 12, 2019 Store Shopper Progress Note Subjective: Patient seen in OT, having difficulty standing, but working on sponge bathing. He is feeling well overall. REVIEW OF SYSTEMS: The following is a completed review of systems and has been reviewed. Review of systems otherwise unremarkable. PAIN: Patient self reports mild right knee pain EYES: No recent vision changes EARS, NOSE, & THROAT: No throat pain, or dysphagia, or rhinorrhea CARDIOVASCULAR: Denies chest pain or palpitations PULMONARY: Denies shortness of breath GASTROINTESTINAL: Denies constipation/diarrhea GENITOURINARY:+ neurogenic bladder MUSCULOSKELETAL: right knee pain NEUROLOGICAL:incomplete paraplegia HEMATOLOGICAL: +anemia SKIN: suprapubic rash PSYCHIATRIC: Unremarkable All other review of systems found to be negative. PHYSICAL EXAMINATION: VITAL SIGNS: Please see below. GENERAL: Pleasant and cooperative. No acute distress. HEENT: PERRL. Extraocular movements intact. Clear conjunctiva CARDIOVASCULAR: Regular rate and rhythm. No murmurs, rubs, or gallops LUNGS: Clear to auscultation bilaterally. No wheezes. No rhonchi ABDOMEN: Soft, nontender, mildly distended Positive bowel sounds. +abdominal incision c/d/i, + suprapubic catheter NEUROLOGICAL: Alert and oriented times three. Cranial nerves II through XII grossly intact. Sensation decreased to light touch mid-trunk and below EXTREMITIES: 5-\5 strength bilateral upper extremities. 3/5 right hip flexors, knee extensors, ankle AF and EHL, 4-/5 LLE +mild swelling right knee, no warmth, mild tenderness ASSESSMENT:73-year-old M with past medical history of incomplete paraplegia with partial bowel resection who presents status post dehydration with ileus and deconditioning PLAN: 1. Rehab: PT- stretch/strenghten/maintain ROM bilat LE, improve transfers, and walking endurance OT -stretch/strenghten/maintain ROM bilat UE, teach shoulder protection exercises 2. Neuro: incomplete paraplegia, monitor for worsening function, utilize AFO for foot drop 3. CArdiac: diastolic chronic CHF with Afib, c/u lower dose Eliquis in setting of recent GI bleed and drop in Hgb/Hct, c/u aldactone -htn- c/u SOO, medicine consulted to assist in management -hld c/u statin and Tricor 4. resp: encourage incentive spirometry, LEEANN- c/u CPAP 5. Hyponatremia- improving, c/u fluid restriction, c/u to hold Lasix, c/u NaCl supplements 6. Heme: anemia due to chronic disease likely and GI loss, will monitor and transfuse if <8 7. endo: DM c/u insulin coverage and adjust prn 8. - neurogenic bladder, c/u suprapubic cath care- discussed with Dr. Hickey, ok to change on floor, on suzy-procedure Levaquin, to be changed today 9. GI: neurogenic bowel, c/u bowel regiment, monitor for signs of obstruction 10. Skin: turm q2 in bed, zinc to sacrum, nystatin powder to lower abdomen 11. DVT ppx: TEDs and on Elqiuis 12. MSK: right knee effusion, most likely degenerative, able to passively range, c/u ice, topical lidocaine, tylenol standing 12. Dispo: TBD Allergies Coded Allergies: Sulfa (Sulfonamide Antibiotics) (Verified Allergy, Intermediate, hives, 12/20/18) alcohol (Verified Allergy, Intermediate, soap rash, 12/20/18) carisoprodol (Verified Allergy, Intermediate, hives, 12/20/18) gum mastic (Verified Allergy, Intermediate, soap rash, 12/20/18) purell mosture therapy latex (Verified Allergy, Intermediate, rash, 12/20/18) methyl salicylate (Verified Allergy, Intermediate, soap rash, 12/20/18) methylparaben (Verified Allergy, Intermediate, hives, 12/20/18) morphine (Verified Allergy, Intermediate, HIVES RASH AT SITE LIKELY HISTAMINE RELEASE, 12/20/18) storax (Verified Allergy, Intermediate, soap rash, 12/20/18) SOO Inhibitors (Verified Allergy, Unknown, 12/20/18) TAPE (Verified Allergy, Unknown, STERISTRIPS, 02/10/18) hydrochlorothiazide (Verified Allergy, Unknown, unsure of reaction, 12/20/18) nitrofurantoin (Verified Adverse Reaction, Mild, diarrhea, 12/20/18) Vital Signs Vital Signs Date Time Temp Pulse Resp B/P (MAP) Pulse Ox O2 Delivery O2 Flow Rate FiO2 04/12/19 08:19 92/46 04/12/19 06:00 97.3 73 18 98 Laboratory Data CBC/BMP Laboratory Tests 04/12/19 05:51 Anion Gap 2 L Labs 24H Laboratory Tests 2 04/12/19 05:51: Blood Urea Nitrogen 25H, Creatinine 1.11, Sodium Level 131L, Potassium Level 4. 8, Chloride Level 97L, Carbon Dioxide Level 32, Anion Gap 2L, Glomerular Filtration Rate > 60.0, Calcium Level 8.7L, Phosphorus Level 2.7#, Albumin 2.2L Current Medications Current Medications Current Medications Medications (Trade) Dose Ordered Sig/Rick Route PRN Reason Start Time Stop Time Status Last Admin Dose Admin Acetaminophen (Tylenol Tab) 650 mg Q6HP PRN PO PAIN / FEVER 04/09/19 18:00 04/11/19 10:43 DC 04/10/19 14:29 Acetaminophen (Tylenol Tab) 650 mg TID PO 04/11/19 09:00 04/12/19 08:16 Apixaban (Eliquis) 2.5 mg BID PO 04/09/19 21:00 04/12/19 08:20 Artificial Tears (Akwa Tears) 2 drop QID OU 04/09/19 21:00 04/12/19 08:22 Atorvastatin Calcium (Lipitor) 40 mg QHS PO 04/09/19 21:00 04/11/19 20:22 Bisacodyl (Dulcolax Suppository) 10 mg DAILY [place] 04/09/19 19:00 04/11/19 10:16 Bisacodyl (Dulcolax Suppository) 10 mg DAILYPRN PRN [place] CONSTIPATION 04/09/19 18:00 Dextrose (Dextrose 50%) 25 ml ASDIRECTED PRN IV SEE LABEL COMMENTS 04/11/19 10:45 Docusate Sodium (Colace) 100 mg BID PO 04/09/19 21:00 04/12/19 08:20 Fenofibrate (Tricor) 145 mg DAILY PO 04/10/19 09:00 04/12/19 08:22 Ferrous Gluconate (Fergon) 324 mg DAILY PO 04/10/19 09:00 04/12/19 08:20 Gabapentin (Neurontin) 600 mg Q8H PO 04/09/19 22:00 04/12/19 05:33 Glucagon (Glucagon) 1 mg ASDIRECTED PRN SC SEE LABEL COMMENTS 04/11/19 10:45 Glucose (Glucose) 16 GM ASDIRECTED PRN PO SEE LABEL COMMENTS 04/11/19 10:45 Heparin Sodium (Heparin (Flush)) 200 units ASDIRECTED PRN IV SEE LABEL COMMENTS 04/09/19 22:45 Heparin Sodium (Heparin (Flush)) 200 units PICC IV 04/10/19 06:00 04/12/19 05:33 Insulin Detemir (Levemir Insulin) 5 units BID SC 04/09/19 21:00 04/12/19 08:16 Insulin Human Lispro (HumaLOG INSULIN) SEE PROTOCOL TABLE AC SC 04/11/19 12:00 04/12/19 08:16 Insulin Human Lispro (HumaLOG INSULIN) SEE PROTOCOL TABLE QHS SC 04/11/19 21:00 Levofloxacin (Levaquin) 500 mg DAILY@1800 PO 04/11/19 18:00 04/12/19 18:01 04/11/19 17:55 Lidocaine HCl (Lidocaine 5% Oint) TO Right knee BID TOP 04/11/19 21:00 04/12/19 08:23 Losartan Potassium (Cozaar) 12.5 mg DAILY PO 04/10/19 09:00 04/11/19 10:15 Magnesium Oxide (Mag-Ox) 400 mg BID PO 04/09/19 21:00 04/12/19 08:19 Nystatin (Mycostatin Powder, Nystop) apply to suzy-suprapubic area BID TOP 04/10/19 21:00 04/12/19 08:23 Pantoprazole Sodium (Protonix) 40 mg BID PO 04/09/19 21:00 04/12/19 08:16 Potassium Chloride (Micro-K Extencaps) 20 meq DAILY PO 04/10/19 09:00 04/12/19 08:20 Senna (Senokot) 1 tab QHS PO 04/09/19 21:00 04/11/19 20:22 Sodium Chloride (Saline Lock Flush) 10 ml ASDIRECTED PRN IV SEE LABEL COMMENTS 04/09/19 22:45 Sodium Chloride (Saline Lock Flush) 10 ml PICC IV 04/10/19 06:00 04/12/19 05:33 Sodium Chloride (Sodium Chloride) 1 gm TID PO 04/10/19 16:00 04/12/19 08:20 Solifenacin (Vesicare) 10 mg QHS PO 04/09/19 21:00 04/11/19 20:22 Spironolactone (Aldactone) 12.5 mg DAILY PO 04/10/19 09:00 04/11/19 10:16 Zinc Oxide (Boudreauxs Butt Paste) to sacrum BID TOP 04/10/19 21:00 04/12/19 10:32 DC 04/12/19 08:22 MARY LEON MD Apr 12, 2019 11:47
[2019-04-12] MEDS: LevoFLOXacin 500 MG TABLET PO SCH (16:52)
[2019-04-12] MEDS ORDERED: PILL CUTTER 1 EACH XX PRN (18:15)
[2019-04-12] MEDS: SENNA 8.6 MG TAB (SENOKOT) PO SCH (21:00)
[2019-04-12 22:00] VITALS: BP 146/67
[2019-04-12] MEDS: ATORVASTATIN 20 MG TAB PO SCH (22:49)
[2019-04-12] MEDS: SOLIFENACIN 5 MG TAB PO SCH (22:50)
[2019-04-13 06:00] VITALS: BP 121/59
[2019-04-13] MEDS: SODIUM CHLORIDE 0.9% INJ 10 ML SYR IV SCH ×2 (06:33→17:12)
[2019-04-13] MEDS: GABAPENTIN 300 MG CAP PO SCH ×3 (06:34→22:18)
[2019-04-13] MEDS: HumaLOG INSULIN (NovoLOG) PER UNIT SC SCH ×4 (06:57→21:00)
[2019-04-13 07:08] LABS: BASO % 0.4 % (0.0-1.0); EOS # 0.2 10^3/uL (0.0-0.50); EOS % 3.7 % (0.0-3.0); HEMATOCRIT 25.5 % (42.0-52.0); HEMOGLOBIN 8.4 g/dl (13.5-17.5); LYMPH # 1.5 10^3/uL (1.5-4.5); LYMPH % 29.4 % (24.0-44.0); MEAN CORPUSCULAR HGB CONC 32.9 g/dl (32.0-36.5); MEAN CORPUSCULAR VOLUME 87.9 fl (80.0-96.0); MONO # 0.6 10^3/uL (0.0-0.8); MONO % 11.2 % (0.0-5.0); NEUTROPHILS # 2.9 10^3/uL (1.8-7.7); NEUTROPHILS % 54.9 % (36.0-66.0); PLATELET COUNT, AUTOMATED 212 10^3/uL (150-450); WHITE BLOOD COUNT 5.2 10^3/uL (4.0-10.0)
[2019-04-13 07:31] LABS: ALBUMIN 2.2 GM/DL (3.2-5.2); BLOOD UREA NITROGEN 22 MG/DL (7-18); CALCIUM LEVEL 8.4 MG/DL (8.8-10.2); CARBON DIOXIDE LEVEL 30 MEQ/L (21-32); CHLORIDE LEVEL 101 MEQ/L (98-107); GLOMERULAR FILTRATION RATE > 60.0 (>42); GLUCOSE, FASTING 98 MG/DL (70-100); PHOSPHORUS LEVEL 2.6 MG/DL (2.5-4.9); POTASSIUM SERUM 4.6 MEQ/L (3.5-5.1); SODIUM LEVEL 135 MEQ/L (136-145)
[2019-04-13] MEDS: SODIUM CHLORIDE 1 GM TAB PO SCH ×3 (08:40→22:19)
[2019-04-13] MEDS: PANTOPRAZOLE 40MG TAB (PROTONIX) PO SCH ×2 (08:40→22:18)
[2019-04-13] MEDS: ACETAMINOPHEN TAB 650MG DOSE (2X325MG) PO SCH ×3 (08:40→22:20)
[2019-04-13] MEDS: SPIRONOLACTONE 12.5MG PER 1/2 TABLET PO SCH (08:40)
[2019-04-13] MEDS: POTASSIUM CHLORIDE 10 MEQ SR TABLET PO SCH (08:40)
[2019-04-13] MEDS: FENOFIBRATE 145 MG TAB (TRICOR) PO SCH (08:40)
[2019-04-13] MEDS: FERROUS GLUCONATE 324 MG TAB PO SCH (08:41)
[2019-04-13] MEDS: APIXABAN 2.5 MG TAB (ELIQUIS) PO SCH ×2 (08:41→22:19)
[2019-04-13] MEDS: MAGNESIUM OXIDE 400 MG TAB (MAG-OX) PO SCH ×2 (08:41→22:19)
[2019-04-13] MEDS: LOSARTAN 25 MG TAB PO SCH (08:42)
[2019-04-13] MEDS: POLYVINYL ALCOHOL OPHTH SOLN 15 ML(LIQUITEARS) OU SCH ×4 (08:44→22:22)
[2019-04-13] MEDS: LEVEMIR (INSULIN DETEMIR) 1 UNITS/0.01ML SC SCH ×2 (08:44→22:21)
[2019-04-13] MEDS: DOCUSATE SODIUM 100 MG CAP PO SCH ×2 (08:44→21:00)
[2019-04-13] MEDS: NYSTATIN 100,000 UNITS/GM TOPICAL PWD 15 GM TOP SCH ×2 (08:45→22:22)
[2019-04-13] MEDS: BISACODYL 10 MG SUPP PR SCH (08:45)
[2019-04-13] MEDS: LIDOCAINE 5% OINT 30 GM TOP SCH ×2 (08:45→22:22)
[2019-04-13 14:00] VITALS: BP 110/53
[2019-04-13 20:00] VITALS: BP 150/70
[2019-04-13] MEDS: SENNA 8.6 MG TAB (SENOKOT) PO SCH (21:00)
[2019-04-13] MEDS: SOLIFENACIN 5 MG TAB PO SCH (22:18)
[2019-04-13] MEDS: ATORVASTATIN 20 MG TAB PO SCH (22:19)
[2019-04-14 05:48] VITALS: BP 136/68
[2019-04-14] MEDS: GABAPENTIN 300 MG CAP PO SCH ×3 (06:10→21:17)
[2019-04-14] MEDS: SODIUM CHLORIDE 0.9% INJ 10 ML SYR IV SCH ×2 (06:12→17:07)
[2019-04-14] MEDS: HumaLOG INSULIN (NovoLOG) PER UNIT SC SCH ×4 (07:30→21:00)
[2019-04-14 07:38] LABS: ALBUMIN 2.2 GM/DL (3.2-5.2); BLOOD UREA NITROGEN 24 MG/DL (7-18); CARBON DIOXIDE LEVEL 29 MEQ/L (21-32); CHLORIDE LEVEL 102 MEQ/L (98-107); CREATININE FOR GFR 1.06 MG/DL (0.70-1.30); GLOMERULAR FILTRATION RATE > 60.0 (>42); GLUCOSE, FASTING 94 MG/DL (70-100); PHOSPHORUS LEVEL 2.5 MG/DL (2.5-4.9); POTASSIUM SERUM 4.7 MEQ/L (3.5-5.1); SODIUM LEVEL 135 MEQ/L (136-145)
[2019-04-14] MEDS: LEVEMIR (INSULIN DETEMIR) 1 UNITS/0.01ML SC SCH ×2 (08:55→21:16)
[2019-04-14] MEDS: FENOFIBRATE 145 MG TAB (TRICOR) PO SCH (08:55)
[2019-04-14] MEDS: LOSARTAN 25 MG TAB PO SCH (08:55)
[2019-04-14] MEDS: SPIRONOLACTONE 12.5MG PER 1/2 TABLET PO SCH (08:55)
[2019-04-14] MEDS: PANTOPRAZOLE 40MG TAB (PROTONIX) PO SCH ×2 (08:55→21:17)
[2019-04-14] MEDS: APIXABAN 2.5 MG TAB (ELIQUIS) PO SCH ×2 (08:55→21:15)
[2019-04-14] MEDS: ACETAMINOPHEN TAB 650MG DOSE (2X325MG) PO SCH ×3 (08:55→21:18)
[2019-04-14] MEDS: MAGNESIUM OXIDE 400 MG TAB (MAG-OX) PO SCH ×2 (08:56→21:15)
[2019-04-14] MEDS: SODIUM CHLORIDE 1 GM TAB PO SCH (08:56)
[2019-04-14] MEDS: FERROUS GLUCONATE 324 MG TAB PO SCH (08:56)
[2019-04-14] MEDS: POTASSIUM CHLORIDE 10 MEQ SR TABLET PO SCH (08:56)
[2019-04-14] MEDS: LIDOCAINE 5% OINT 30 GM TOP SCH ×2 (08:59→21:19)
[2019-04-14] MEDS: DOCUSATE SODIUM 100 MG CAP PO SCH ×2 (08:59→21:17)
[2019-04-14] MEDS: POLYVINYL ALCOHOL OPHTH SOLN 15 ML(LIQUITEARS) OU SCH ×4 (08:59→21:19)
[2019-04-14] MEDS: BISACODYL 10 MG SUPP PR SCH (08:59)
[2019-04-14] MEDS: NYSTATIN 100,000 UNITS/GM TOPICAL PWD 15 GM TOP SCH ×2 (09:00→21:19)
[2019-04-14 14:00] VITALS: BP 112/56
[2019-04-14 20:00] VITALS: BP 113/57
[2019-04-14] MEDS: SENNA 8.6 MG TAB (SENOKOT) PO SCH (21:15)
[2019-04-14] MEDS: SOLIFENACIN 5 MG TAB PO SCH (21:16)
[2019-04-14] MEDS: ATORVASTATIN 20 MG TAB PO SCH (21:17)
[2019-04-15 06:00] VITALS: BP 121/65
[2019-04-15] MEDS: GABAPENTIN 300 MG CAP PO SCH ×3 (06:44→21:04)
[2019-04-15] MEDS: SODIUM CHLORIDE 0.9% INJ 10 ML SYR IV SCH ×2 (06:44→17:36)
[2019-04-15 07:18] LABS: BASO % 0.4 % (0.0-1.0); EOS # 0.2 10^3/uL (0.0-0.50); EOS % 2.8 % (0.0-3.0); HEMATOCRIT 25.5 % (42.0-52.0); HEMOGLOBIN 8.3 g/dl (13.5-17.5); LYMPH # 1.7 10^3/uL (1.5-4.5); LYMPH % 30.9 % (24.0-44.0); MEAN CORPUSCULAR HEMOGLOBIN 27.9 pg (27.0-33.0); MEAN CORPUSCULAR HGB CONC 32.5 g/dl (32.0-36.5); MEAN CORPUSCULAR VOLUME 85.9 fl (80.0-96.0); MONO # 0.5 10^3/uL (0.0-0.8); MONO % 8.7 % (0.0-5.0); NEUTROPHILS # 3.2 10^3/uL (1.8-7.7); PLATELET COUNT, AUTOMATED 213 10^3/uL (150-450); RED BLOOD COUNT 2.97 10^6/uL (4.30-6.10); WHITE BLOOD COUNT 5.6 10^3/uL (4.0-10.0)
[2019-04-15 07:31] LABS: ALBUMIN 2.3 GM/DL (3.2-5.2); CALCIUM LEVEL 9.2 MG/DL (8.8-10.2); CREATININE FOR GFR 1.27 MG/DL (0.70-1.30); GLOMERULAR FILTRATION RATE 59.2 (>42); PHOSPHORUS LEVEL 2.4 MG/DL (2.5-4.9); POTASSIUM SERUM 4.7 MEQ/L (3.5-5.1)
[2019-04-15] MEDS: HumaLOG INSULIN (NovoLOG) PER UNIT SC SCH ×4 (08:30→20:28)
[2019-04-15] MEDS: PANTOPRAZOLE 40MG TAB (PROTONIX) PO SCH ×2 (08:33→20:27)
[2019-04-15] MEDS: POTASSIUM CHLORIDE 10 MEQ SR TABLET PO SCH (08:33)
[2019-04-15] MEDS: ACETAMINOPHEN TAB 650MG DOSE (2X325MG) PO SCH ×3 (08:34→20:27)
[2019-04-15] MEDS: SPIRONOLACTONE 12.5MG PER 1/2 TABLET PO SCH (08:34)
[2019-04-15] MEDS: LEVEMIR (INSULIN DETEMIR) 1 UNITS/0.01ML SC SCH ×2 (08:34→20:28)
[2019-04-15] MEDS: FERROUS GLUCONATE 324 MG TAB PO SCH (08:35)
[2019-04-15] MEDS: MAGNESIUM OXIDE 400 MG TAB (MAG-OX) PO SCH ×2 (08:35→20:27)
[2019-04-15] MEDS: APIXABAN 2.5 MG TAB (ELIQUIS) PO SCH ×2 (08:35→20:27)
[2019-04-15] MEDS: SODIUM CHLORIDE 1 GM TAB PO SCH (08:35)
[2019-04-15] MEDS: LOSARTAN 25 MG TAB PO SCH (08:35)
[2019-04-15] MEDS: FENOFIBRATE 145 MG TAB (TRICOR) PO SCH (08:35)
[2019-04-15] MEDS: DOCUSATE SODIUM 100 MG CAP PO SCH ×2 (08:35→20:27)
[2019-04-15] MEDS: BISACODYL 10 MG SUPP PR SCH (08:35)
[2019-04-15] MEDS: POLYVINYL ALCOHOL OPHTH SOLN 15 ML(LIQUITEARS) OU SCH ×4 (08:38→20:29)
[2019-04-15] MEDS: LIDOCAINE 5% OINT 30 GM TOP SCH ×2 (08:38→20:28)
[2019-04-15] MEDS: NYSTATIN 100,000 UNITS/GM TOPICAL PWD 15 GM TOP SCH ×2 (08:38→20:26)
[2019-04-15 14:00] VITALS: BP 119/59
[2019-04-15] MEDS: SENNA 8.6 MG TAB (SENOKOT) PO SCH (20:27)
[2019-04-15] MEDS: ATORVASTATIN 20 MG TAB PO SCH (20:27)
[2019-04-15] MEDS: SOLIFENACIN 5 MG TAB PO SCH (20:27)
[2019-04-15 21:13] VITALS: BP 152/73
[2019-04-16 06:00] VITALS: BP 108/56
[2019-04-16] MEDS: GABAPENTIN 300 MG CAP PO SCH ×3 (06:32→22:08)
[2019-04-16] MEDS: SODIUM CHLORIDE 0.9% INJ 10 ML SYR IV SCH ×2 (06:32→16:59)
[2019-04-16 07:46] LABS: ALBUMIN 2.3 GM/DL (3.2-5.2); BLOOD UREA NITROGEN 23 MG/DL (7-18); CALCIUM LEVEL 8.5 MG/DL (8.8-10.2); CARBON DIOXIDE LEVEL 28 MEQ/L (21-32); CHLORIDE LEVEL 104 MEQ/L (98-107); CREATININE FOR GFR 1.14 MG/DL (0.70-1.30); GLOMERULAR FILTRATION RATE > 60.0 (>42); GLUCOSE, FASTING 65 MG/DL (70-100); PHOSPHORUS LEVEL 2.4 MG/DL (2.5-4.9); POTASSIUM SERUM 4.7 MEQ/L (3.5-5.1); SODIUM LEVEL 136 MEQ/L (136-145)
[2019-04-16] MEDS: LOSARTAN 25 MG TAB PO SCH (09:00)
[2019-04-16] MEDS: BISACODYL 10 MG SUPP PR SCH ×2 (09:00→09:56)
[2019-04-16] MEDS: ACETAMINOPHEN TAB 650MG DOSE (2X325MG) PO SCH ×3 (09:53→22:09)
[2019-04-16] MEDS: SPIRONOLACTONE 12.5MG PER 1/2 TABLET PO SCH (09:53)
[2019-04-16] MEDS: SODIUM CHLORIDE 1 GM TAB PO SCH (09:54)
[2019-04-16] MEDS: PANTOPRAZOLE 40MG TAB (PROTONIX) PO SCH ×2 (09:54→22:08)
[2019-04-16] MEDS: DOCUSATE SODIUM 100 MG CAP PO SCH ×2 (09:54→22:08)
[2019-04-16] MEDS: FENOFIBRATE 145 MG TAB (TRICOR) PO SCH (09:54)
[2019-04-16] MEDS: APIXABAN 2.5 MG TAB (ELIQUIS) PO SCH ×2 (09:55→22:08)
[2019-04-16] MEDS: MAGNESIUM OXIDE 400 MG TAB (MAG-OX) PO SCH ×2 (09:55→22:08)
[2019-04-16] MEDS: POTASSIUM CHLORIDE 10 MEQ SR TABLET PO SCH (09:55)
[2019-04-16] MEDS: FERROUS GLUCONATE 324 MG TAB PO SCH (09:55)
[2019-04-16] MEDS: POLYVINYL ALCOHOL OPHTH SOLN 15 ML(LIQUITEARS) OU SCH ×4 (09:56→22:12)
[2019-04-16] MEDS: LIDOCAINE 5% OINT 30 GM TOP SCH ×2 (09:57→22:12)
[2019-04-16] MEDS: NYSTATIN 100,000 UNITS/GM TOPICAL PWD 15 GM TOP SCH ×2 (09:57→22:12)
[2019-04-16] MEDS: POLYSPORIN TOPICAL OINTMENT 15GM TOP SCH (12:10)
[2019-04-16 14:00] VITALS: BP 137/74
[2019-04-16] MEDS ORDERED: GLUCOSE 4 GM CHEW TABLET PO PRN (14:15)
[2019-04-16] MEDS ORDERED: GLUCAGON FOR INJ 1 MG VIAL (J1610) SC PRN (14:15)
[2019-04-16] MEDS ORDERED: DEXTROSE 50% 50 ML SYRINGE IV PRN (14:15)
[2019-04-16] MEDS ORDERED: HumaLOG INSULIN (NovoLOG) PER UNIT SC ONE (14:45)
[2019-04-16] MEDS: HumaLOG INSULIN (NovoLOG) PER UNIT SC SCH (16:58)
[2019-04-16 22:00] VITALS: BP 142/65
[2019-04-16] MEDS: SENNA 8.6 MG TAB (SENOKOT) PO SCH (22:08)
[2019-04-16] MEDS: ATORVASTATIN 20 MG TAB PO SCH (22:08)
[2019-04-16] MEDS: SOLIFENACIN 5 MG TAB PO SCH (22:08)
[2019-04-17] MEDS: SODIUM CHLORIDE 0.9% INJ 10 ML SYR IV SCH ×2 (05:53→21:24)
[2019-04-17] MEDS: GABAPENTIN 300 MG CAP PO SCH ×3 (05:53→21:24)
[2019-04-17 06:00] VITALS: BP 123/64
[2019-04-17] MEDS: HumaLOG INSULIN (NovoLOG) PER UNIT SC SCH ×3 (07:06→17:02)
[2019-04-17] MEDS: POTASSIUM CHLORIDE 10 MEQ SR TABLET PO SCH (08:51)
[2019-04-17] MEDS: ACETAMINOPHEN TAB 650MG DOSE (2X325MG) PO SCH ×3 (08:51→21:25)
[2019-04-17] MEDS: SODIUM CHLORIDE 1 GM TAB PO SCH (08:51)
[2019-04-17] MEDS: FERROUS GLUCONATE 324 MG TAB PO SCH (08:51)
[2019-04-17] MEDS: APIXABAN 2.5 MG TAB (ELIQUIS) PO SCH ×2 (08:51→21:24)
[2019-04-17] MEDS: DOCUSATE SODIUM 100 MG CAP PO SCH ×2 (08:52→21:24)
[2019-04-17] MEDS: LOSARTAN 25 MG TAB PO SCH (08:52)
[2019-04-17] MEDS: BISACODYL 10 MG SUPP PR SCH ×2 (08:52→09:00)
[2019-04-17] MEDS: PANTOPRAZOLE 40MG TAB (PROTONIX) PO SCH ×2 (08:52→21:24)
[2019-04-17] MEDS: SPIRONOLACTONE 12.5MG PER 1/2 TABLET PO SCH (08:52)
[2019-04-17] MEDS: FENOFIBRATE 145 MG TAB (TRICOR) PO SCH (08:52)
[2019-04-17] MEDS: MAGNESIUM OXIDE 400 MG TAB (MAG-OX) PO SCH ×2 (08:52→21:24)
[2019-04-17] MEDS: POLYVINYL ALCOHOL OPHTH SOLN 15 ML(LIQUITEARS) OU SCH ×4 (08:53→21:25)
[2019-04-17] MEDS: LIDOCAINE 5% OINT 30 GM TOP SCH ×2 (08:53→21:25)
[2019-04-17] MEDS: POLYSPORIN TOPICAL OINTMENT 15GM TOP SCH (08:53)
[2019-04-17] MEDS: NYSTATIN 100,000 UNITS/GM TOPICAL PWD 15 GM TOP SCH ×2 (08:54→21:26)
[2019-04-17 14:00] VITALS: BP 124/56
--- NOTE | 2019-04-17 16:37 | IPNPDOC ---
PM&R Progress Note DATE OF SERVICE: Apr 16, 2019 Library Consultant Progress Note Subjective: Patient seen in OT working on bathing tasks, states he feels well, but notices his right ankle is now swollen. REVIEW OF SYSTEMS: The following is a completed review of systems and has been reviewed. Review of systems otherwise unremarkable. PAIN: Patient self reports mild right knee pain EYES: No recent vision changes EARS, NOSE, & THROAT: No throat pain, or dysphagia, or rhinorrhea CARDIOVASCULAR: Denies chest pain or palpitations PULMONARY: Denies shortness of breath GASTROINTESTINAL: Denies constipation/diarrhea GENITOURINARY:+ neurogenic bladder MUSCULOSKELETAL: right knee pain NEUROLOGICAL:incomplete paraplegia HEMATOLOGICAL: +anemia SKIN: suprapubic rash PSYCHIATRIC: Unremarkable All other review of systems found to be negative. PHYSICAL EXAMINATION: VITAL SIGNS: Please see below. GENERAL: Pleasant and cooperative. No acute distress. HEENT: PERRL. Extraocular movements intact. Clear conjunctiva CARDIOVASCULAR: Regular rate and rhythm. No murmurs, rubs, or gallops LUNGS: Clear to auscultation bilaterally. No wheezes. No rhonchi ABDOMEN: Soft, nontender, mildly distended Positive bowel sounds. +abdominal incision c/d/i, + suprapubic catheter NEUROLOGICAL: Alert and oriented times three. Cranial nerves II through XII grossly intact. Sensation decreased to light touch mid-trunk and below EXTREMITIES: 5-\5 strength bilateral upper extremities. 3/5 right hip flexors, knee extensors, ankle AF and EHL, 4-/5 LLE resolved right knee swelling, knee, no warmth, mild tenderness +right ankle swelling without erythema ASSESSMENT:73-year-old M with past medical history of incomplete paraplegia with partial bowel resection who presents status post dehydration with ileus and deconditioning PLAN: 1. Rehab: PT- stretch/strenghten/maintain ROM bilat LE, improve transfers, and walking endurance OT -stretch/strenghten/maintain ROM bilat UE, teach shoulder protection exercises 2. Neuro: incomplete paraplegia, monitor for worsening function, utilize AFO for foot drop 3. CArdiac: diastolic chronic CHF with Afib, c/u lower dose Eliquis in setting of recent GI bleed and drop in Hgb/Hct, c/u aldactone -htn- c/u SOO, medicine consulted to assist in management -hld c/u statin and Tricor 4. resp: encourage incentive spirometry, LEEANN- c/u CPAP 5. Hyponatremia- improving, c/u fluid restriction, c/u to hold Lasix, c/u tapering dose of NaCl supplements 6. Heme: anemia due to chronic disease likely and GI loss, will monitor and transfuse if <8 7. endo: DM c/u insulin coverage and adjust prn 8. - neurogenic bladder, c/u suprapubic cath care changed 04/12/19 will need f/u as outpatient 9. GI: neurogenic bowel, c/u bowel regiment, monitor for signs of obstruction 10. Skin: turm q2 in bed, zinc to sacrum, nystatin powder to lower abdomen 11. DVT ppx: TEDs and on Elqiuis 12. MSK: right knee effusion resolved, now with dependent right ankle swelling, acewrap and elevate- c/u ice, topical lidocaine, tylenol standing 12. Dispo: TBD Allergies Coded Allergies: Sulfa (Sulfonamide Antibiotics) (Verified Allergy, Intermediate, hives, 12/20/18) alcohol (Verified Allergy, Intermediate, soap rash, 12/20/18) carisoprodol (Verified Allergy, Intermediate, hives, 12/20/18) gum mastic (Verified Allergy, Intermediate, soap rash, 12/20/18) purell mosture therapy latex (Verified Allergy, Intermediate, rash, 12/20/18) methyl salicylate (Verified Allergy, Intermediate, soap rash, 12/20/18) methylparaben (Verified Allergy, Intermediate, hives, 12/20/18) morphine (Verified Allergy, Intermediate, HIVES RASH AT SITE LIKELY HISTAMINE RELEASE, 12/20/18) storax (Verified Allergy, Intermediate, soap rash, 12/20/18) SOO Inhibitors (Verified Allergy, Unknown, 12/20/18) TAPE (Verified Allergy, Unknown, STERISTRIPS, 02/10/18) hydrochlorothiazide (Verified Allergy, Unknown, unsure of reaction, 12/20/18) nitrofurantoin (Verified Adverse Reaction, Mild, diarrhea, 12/20/18) Vital Signs Vital Signs Date Time Temp Pulse Resp B/P (MAP) Pulse Ox O2 Delivery O2 Flow Rate FiO2 04/17/19 14:00 97.4 80 18 124/56 (78) 98 Current Medications Current Medications Current Medications Medications (Trade) Dose Ordered Sig/Rick Route PRN Reason Start Time Stop Time Status Last Admin Dose Admin Acetaminophen (Tylenol Tab) 650 mg Q6HP PRN PO PAIN / FEVER 04/09/19 18:00 04/11/19 10:43 DC 04/10/19 14:29 Acetaminophen (Tylenol Tab) 650 mg TID PO 04/11/19 09:00 04/17/19 16:10 Apixaban (Eliquis) 2.5 mg BID PO 04/09/19 21:00 04/17/19 08:51 Artificial Tears (Akwa Tears) 2 drop QID OU 04/09/19 21:00 04/17/19 13:17 Atorvastatin Calcium (Lipitor) 40 mg QHS PO 04/09/19 21:00 04/16/19 22:08 Bacitracin/ Polymyxin B Sulfate (Polysporin Top Oint) apply to laceration on abdomen DAILY TOP 04/16/19 09:00 04/17/19 08:53 Bisacodyl (Dulcolax Suppository) 10 mg DAILY [place] 04/09/19 19:00 04/15/19 08:35 Bisacodyl (Dulcolax Suppository) 10 mg DAILYPRN PRN [place] CONSTIPATION 04/09/19 18:00 Dextrose (Dextrose 50%) 25 ml ASDIRECTED PRN IV SEE LABEL COMMENTS 04/16/19 14:15 UNV Dextrose (Dextrose 50%) 25 ml ASDIRECTED PRN IV SEE LABEL COMMENTS 04/11/19 10:45 Docusate Sodium (Colace) 100 mg BID PO 04/09/19 21:00 04/17/19 08:52 Fenofibrate (Tricor) 145 mg DAILY PO 04/10/19 09:00 04/17/19 08:52 Ferrous Gluconate (Fergon) 324 mg DAILY PO 04/10/19 09:00 04/17/19 08:51 Gabapentin (Neurontin) 600 mg Q8H PO 04/09/19 22:00 04/17/19 13:18 Glucagon (Glucagon) 1 mg ASDIRECTED PRN SC SEE LABEL COMMENTS 04/16/19 14:15 UNV Glucagon (Glucagon) 1 mg ASDIRECTED PRN SC SEE LABEL COMMENTS 04/11/19 10:45 Glucose (Glucose) 16 GM ASDIRECTED PRN PO SEE LABEL COMMENTS 04/16/19 14:15 UNV Glucose (Glucose) 16 GM ASDIRECTED PRN PO SEE LABEL COMMENTS 04/11/19 10:45 Heparin Sodium (Heparin (Flush)) 200 units ASDIRECTED PRN IV SEE LABEL COMMENTS 04/09/19 22:45 Heparin Sodium (Heparin (Flush)) 200 units PICC IV 04/10/19 06:00 04/17/19 05:53 Insulin Detemir (Levemir Insulin) 5 units BID SC 04/09/19 21:00 04/16/19 09:46 DC 04/15/19 20:28 Insulin Human Lispro (HumaLOG INSULIN) SEE PROTOCOL TABLE AC LA 04/16/19 17:30 04/17/19 12:29 Insulin Human Lispro (HumaLOG INSULIN) SEE PROTOCOL TABLE AC LA 04/11/19 12:00 04/16/19 09:47 DC 04/15/19 17:35 Insulin Human Lispro (HumaLOG INSULIN) SEE PROTOCOL TABLE QHS LA 04/11/19 21:00 04/16/19 09:47 DC Levofloxacin (Levaquin) 500 mg DAILY@1800 PO 04/11/19 18:00 04/12/19 18:01 DC 04/12/19 16:52 Lidocaine HCl (Lidocaine 5% Oint) TO Right knee BID TOP 04/11/19 21:00 04/17/19 08:53 Losartan Potassium (Cozaar) 12.5 mg DAILY PO 04/10/19 09:00 04/17/19 08:52 Magnesium Oxide (Mag-Ox) 400 mg BID PO 04/09/19 21:00 04/17/19 08:52 Miscellaneous (Unresolved Clarification Entry) SEE LABEL COMMENTS DAILY XX 04/15/19 09:00 04/16/19 09:51 DC Miscellaneous (Unresolved Clarification Entry) SEE LABEL COMMENTS DAILY XX 04/16/19 09:00 04/16/19 10:23 DC Nystatin (Mycostatin Powder, Nystop) apply to suzy-suprapubic area BID TOP 04/10/19 21:00 04/17/19 08:54 Pantoprazole Sodium (Protonix) 40 mg BID PO 04/09/19 21:00 04/17/19 08:52 Potassium Chloride (Micro-K Extencaps) 20 meq DAILY PO 04/10/19 09:00 04/17/19 08:51 Senna (Senokot) 1 tab QHS PO 04/09/19 21:00 04/16/19 22:08 Sodium Chloride (Saline Lock Flush) 10 ml ASDIRECTED PRN IV SEE LABEL COMMENTS 04/09/19 22:45 Sodium Chloride (Saline Lock Flush) 10 ml PICC IV 04/10/19 06:00 04/17/19 05:53 Sodium Chloride (Sodium Chloride) 0.5 gm DAILY PO 04/15/19 09:00 04/17/19 08:51 Sodium Chloride (Sodium Chloride) 0.5 gm TID PO 04/12/19 21:00 04/14/19 11:04 DC 04/14/19 08:56 Sodium Chloride (Sodium Chloride) 1 gm TID PO 04/10/19 16:00 04/12/19 18:11 DC 04/12/19 15:19 Solifenacin (Vesicare) 10 mg QHS PO 04/09/19 21:00 04/16/19 22:08 Spironolactone (Aldactone) 12.5 mg DAILY PO 04/10/19 09:00 04/17/19 08:52 Zinc Oxide (Boudreauxs Butt Paste) to sacrum BID TOP 04/10/19 21:00 04/12/19 10:32 DC 04/12/19 08:22 MARY LEON MD Apr 17, 2019 16:37
--- NOTE | 2019-04-17 16:40 | IPNPDOC ---
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 REVIEW OF SYSTEMS: The following is a completed review of systems and has been reviewed. Review of systems otherwise unremarkable. PAIN: Patient self reports mild right knee pain EYES: No recent vision changes EARS, NOSE, & THROAT: No throat pain, or dysphagia, or rhinorrhea CARDIOVASCULAR: Denies chest pain or palpitations PULMONARY: Denies shortness of breath GASTROINTESTINAL: Denies constipation/diarrhea GENITOURINARY:+ neurogenic bladder MUSCULOSKELETAL: right knee pain NEUROLOGICAL:incomplete paraplegia HEMATOLOGICAL: +anemia SKIN: suprapubic rash PSYCHIATRIC: Unremarkable All other review of systems found to be negative. PHYSICAL EXAMINATION: VITAL SIGNS: Please see below. GENERAL: Pleasant and cooperative. No acute distress. HEENT: PERRL. Extraocular movements intact. Clear conjunctiva CARDIOVASCULAR: Regular rate and rhythm. No murmurs, rubs, or gallops LUNGS: Clear to auscultation bilaterally. No wheezes. No rhonchi ABDOMEN: Soft, nontender, mildly distended Positive bowel sounds. +abdominal incision c/d/i, + suprapubic catheter NEUROLOGICAL: Alert and oriented times three. Cranial nerves II through XII grossly intact. Sensation decreased to light touch mid-trunk and below EXTREMITIES: 5-\5 strength bilateral upper extremities. 3/5 right hip flexors, knee extensors, ankle AF and EHL, 4-/5 LLE resolved right knee swelling, knee, no warmth, mild tenderness +right ankle swelling without erythema left D3 +callous with dime-size blanchable purple hue, no open skin ASSESSMENT:73-year-old M with past medical history of incomplete paraplegia with partial bowel resection who presents status post dehydration with ileus and deconditioning PLAN: 1. Rehab: PT- stretch/strenghten/maintain ROM bilat LE, improve transfers, and walking endurance OT -stretch/strenghten/maintain ROM bilat UE, teach shoulder protection exercises 2. Neuro: incomplete paraplegia, monitor for worsening function, utilize AFO for foot drop 3. CArdiac: diastolic chronic CHF with Afib, c/u lower dose Eliquis in setting of recent GI bleed and drop in Hgb/Hct, c/u aldactone -hyponatremia resolving, will add back low dose lasix -htn- c/u SOO, medicine consulted to assist in management -hld c/u statin and Tricor 4. resp: encourage incentive spirometry, LEEANN- c/u CPAP 5. Hyponatremia- improving, c/u fluid restriction, c/u tapering dose of NaCl supplements, sodium levels normalizing, will start back low dose lasix 6. Heme: anemia due to chronic disease likely and GI loss, will monitor and transfuse if <8 7. endo: DM c/u insulin coverage and adjust prn 8. - neurogenic bladder, c/u suprapubic cath care changed 04/12/19 will need f/u as outpatient 9. GI: neurogenic bowel, c/u bowel regiment, monitor for signs of obstruction 10. Skin: turm q2 in bed, zinc to sacrum, nystatin powder to lower abdomen 11. DVT ppx: TEDs and on Elqiuis 12. MSK: right knee effusion resolved, now with dependent right ankle swelling which also has improved with acewrapping and elevation- -c/u ice, topical lidocaine, tylenol standing for right knee OA 13. Skin: left toe callous with what appears to be bruising, cover with bandage- does not appear to be a pressure ulcer 12. Dispo: 04/25/19 to home, progressing towards goals Allergies Coded Allergies: Sulfa (Sulfonamide Antibiotics) (Verified Allergy, Intermediate, hives, 12/20/18) alcohol (Verified Allergy, Intermediate, soap rash, 12/20/18) carisoprodol (Verified Allergy, Intermediate, hives, 12/20/18) gum mastic (Verified Allergy, Intermediate, soap rash, 12/20/18) purell mosture therapy latex (Verified Allergy, Intermediate, rash, 12/20/18) methyl salicylate (Verified Allergy, Intermediate, soap rash, 12/20/18) methylparaben (Verified Allergy, Intermediate, hives, 12/20/18) morphine (Verified Allergy, Intermediate, HIVES RASH AT SITE LIKELY HISTAMINE RELEASE, 12/20/18) storax (Verified Allergy, Intermediate, soap rash, 12/20/18) SOO Inhibitors (Verified Allergy, Unknown, 12/20/18) TAPE (Verified Allergy, Unknown, STERISTRIPS, 02/10/18) hydrochlorothiazide (Verified Allergy, Unknown, unsure of reaction, 12/20/18) nitrofurantoin (Verified Adverse Reaction, Mild, diarrhea, 12/20/18) Vital Signs Vital Signs Date Time Temp Pulse Resp B/P (MAP) Pulse Ox O2 Delivery O2 Flow Rate FiO2 04/17/19 14:00 97.4 80 18 124/56 (78) 98 Current Medications Current Medications Current Medications Medications (Trade) Dose Ordered Sig/Rick Route PRN Reason Start Time Stop Time Status Last Admin Dose Admin Acetaminophen (Tylenol Tab) 650 mg Q6HP PRN PO PAIN / FEVER 04/09/19 18:00 04/11/19 10:43 DC 04/10/19 14:29 Acetaminophen (Tylenol Tab) 650 mg TID PO 04/11/19 09:00 04/17/19 16:10 Apixaban (Eliquis) 2.5 mg BID PO 04/09/19 21:00 04/17/19 08:51 Artificial Tears (Akwa Tears) 2 drop QID OU 04/09/19 21:00 04/17/19 13:17 Atorvastatin Calcium (Lipitor) 40 mg QHS PO 04/09/19 21:00 04/16/19 22:08 Bacitracin/ Polymyxin B Sulfate (Polysporin Top Oint) apply to laceration on abdomen DAILY TOP 04/16/19 09:00 04/17/19 08:53 Bisacodyl (Dulcolax Suppository) 10 mg DAILY UT 04/09/19 19:00 04/15/19 08:35 Bisacodyl (Dulcolax Suppository) 10 mg DAILYPRN PRN UT CONSTIPATION 04/09/19 18:00 Dextrose (Dextrose 50%) 25 ml ASDIRECTED PRN IV SEE LABEL COMMENTS 04/16/19 14:15 UNV Dextrose (Dextrose 50%) 25 ml ASDIRECTED PRN IV SEE LABEL COMMENTS 04/11/19 10:45 Docusate Sodium (Colace) 100 mg BID PO 04/09/19 21:00 04/17/19 08:52 Fenofibrate (Tricor) 145 mg DAILY PO 04/10/19 09:00 04/17/19 08:52 Ferrous Gluconate (Fergon) 324 mg DAILY PO 04/10/19 09:00 04/17/19 08:51 Gabapentin (Neurontin) 600 mg Q8H PO 04/09/19 22:00 04/17/19 13:18 Glucagon (Glucagon) 1 mg ASDIRECTED PRN SC SEE LABEL COMMENTS 04/16/19 14:15 UNV Glucagon (Glucagon) 1 mg ASDIRECTED PRN SC SEE LABEL COMMENTS 04/11/19 10:45 Glucose (Glucose) 16 GM ASDIRECTED PRN PO SEE LABEL COMMENTS 04/16/19 14:15 UNV Glucose (Glucose) 16 GM ASDIRECTED PRN PO SEE LABEL COMMENTS 04/11/19 10:45 Heparin Sodium (Heparin (Flush)) 200 units ASDIRECTED PRN IV SEE LABEL COMMENTS 04/09/19 22:45 Heparin Sodium (Heparin (Flush)) 200 units PICC IV 04/10/19 06:00 04/17/19 05:53 Insulin Detemir (Levemir Insulin) 5 units BID SC 04/09/19 21:00 04/16/19 09:46 DC 04/15/19 20:28 Insulin Human Lispro (HumaLOG INSULIN) SEE PROTOCOL TABLE AC NE 04/16/19 17:30 04/17/19 12:29 Insulin Human Lispro (HumaLOG INSULIN) SEE PROTOCOL TABLE AC NE 04/11/19 12:00 04/16/19 09:47 DC 04/15/19 17:35 Insulin Human Lispro (HumaLOG INSULIN) SEE PROTOCOL TABLE QHS NE 04/11/19 21:00 04/16/19 09:47 DC Levofloxacin (Levaquin) 500 mg DAILY@1800 PO 04/11/19 18:00 04/12/19 18:01 DC 04/12/19 16:52 Lidocaine HCl (Lidocaine 5% Oint) TO Right knee BID TOP 04/11/19 21:00 04/17/19 08:53 Losartan Potassium (Cozaar) 12.5 mg DAILY PO 04/10/19 09:00 04/17/19 08:52 Magnesium Oxide (Mag-Ox) 400 mg BID PO 04/09/19 21:00 04/17/19 08:52 Miscellaneous (Unresolved Clarification Entry) SEE LABEL COMMENTS DAILY XX 04/15/19 09:00 04/16/19 09:51 DC Miscellaneous (Unresolved Clarification Entry) SEE LABEL COMMENTS DAILY XX 04/16/19 09:00 04/16/19 10:23 DC Nystatin (Mycostatin Powder, Nystop) apply to suzy-suprapubic area BID TOP 04/10/19 21:00 04/17/19 08:54 Pantoprazole Sodium (Protonix) 40 mg BID PO 04/09/19 21:00 04/17/19 08:52 Potassium Chloride (Micro-K Extencaps) 20 meq DAILY PO 04/10/19 09:00 04/17/19 08:51 Senna (Senokot) 1 tab QHS PO 04/09/19 21:00 04/16/19 22:08 Sodium Chloride (Saline Lock Flush) 10 ml ASDIRECTED PRN IV SEE LABEL COMMENTS 04/09/19 22:45 Sodium Chloride (Saline Lock Flush) 10 ml PICC IV 04/10/19 06:00 04/17/19 05:53 Sodium Chloride (Sodium Chloride) 0.5 gm DAILY PO 04/15/19 09:00 04/17/19 08:51 Sodium Chloride (Sodium Chloride) 0.5 gm TID PO 04/12/19 21:00 04/14/19 11:04 DC 04/14/19 08:56 Sodium Chloride (Sodium Chloride) 1 gm TID PO 04/10/19 16:00 04/12/19 18:11 DC 04/12/19 15:19 Solifenacin (Vesicare) 10 mg QHS PO 04/09/19 21:00 04/16/19 22:08 Spironolactone (Aldactone) 12.5 mg DAILY PO 04/10/19 09:00 04/17/19 08:52 Zinc Oxide (Boudreauxs Butt Paste) to sacrum BID TOP 04/10/19 21:00 04/12/19 10:32 DC 04/12/19 08:22 MARY LEON MD Apr 17, 2019 16:40
[2019-04-17] MEDS: SENNA 8.6 MG TAB (SENOKOT) PO SCH (21:24)
[2019-04-17] MEDS: ATORVASTATIN 20 MG TAB PO SCH (21:24)
[2019-04-17] MEDS: SOLIFENACIN 5 MG TAB PO SCH (21:25)
[2019-04-17 22:00] VITALS: BP 133/62
[2019-04-18 05:56] VITALS: BP 131/75
[2019-04-18] MEDS: GABAPENTIN 300 MG CAP PO SCH ×3 (06:28→21:51)
[2019-04-18] MEDS: SODIUM CHLORIDE 0.9% INJ 10 ML SYR IV SCH ×2 (06:28→17:03)
[2019-04-18 07:00] LABS: BASO % 0.4 % (0.0-1.0); EOS # 0.1 10^3/uL (0.0-0.50); EOS % 2.3 % (0.0-3.0); HEMATOCRIT 26.4 % (42.0-52.0); HEMOGLOBIN 8.6 g/dl (13.5-17.5); LYMPH % 37.1 % (24.0-44.0); MEAN CORPUSCULAR HEMOGLOBIN 27.8 pg (27.0-33.0); MEAN CORPUSCULAR HGB CONC 32.6 g/dl (32.0-36.5); MEAN CORPUSCULAR VOLUME 85.4 fl (80.0-96.0); MONO # 0.4 10^3/uL (0.0-0.8); MONO % 6.9 % (0.0-5.0); NEUTROPHILS # 2.8 10^3/uL (1.8-7.7); NEUTROPHILS % 52.9 % (36.0-66.0); PLATELET COUNT, AUTOMATED 219 10^3/uL (150-450); RED BLOOD COUNT 3.09 10^6/uL (4.30-6.10); WHITE BLOOD COUNT 5.3 10^3/uL (4.0-10.0)
[2019-04-18 07:18] LABS: BLOOD UREA NITROGEN 23 MG/DL (7-18); CALCIUM LEVEL 8.9 MG/DL (8.8-10.2); CARBON DIOXIDE LEVEL 28 MEQ/L (21-32); CHLORIDE LEVEL 102 MEQ/L (98-107); CREATININE FOR GFR 1.22 MG/DL (0.70-1.30); GLOMERULAR FILTRATION RATE > 60.0 (>42); GLUCOSE, FASTING 120 MG/DL (70-100); POTASSIUM SERUM 4.7 MEQ/L (3.5-5.1); SODIUM LEVEL 133 MEQ/L (136-145)
[2019-04-18] MEDS: HumaLOG INSULIN (NovoLOG) PER UNIT SC SCH ×3 (07:51→17:03)
[2019-04-18] MEDS: SPIRONOLACTONE 12.5MG PER 1/2 TABLET PO SCH (07:52)
[2019-04-18] MEDS: APIXABAN 2.5 MG TAB (ELIQUIS) PO SCH ×2 (07:52→21:51)
[2019-04-18] MEDS: POTASSIUM CHLORIDE 10 MEQ SR TABLET PO SCH (07:52)
[2019-04-18] MEDS: FENOFIBRATE 145 MG TAB (TRICOR) PO SCH (07:53)
[2019-04-18] MEDS: ACETAMINOPHEN TAB 650MG DOSE (2X325MG) PO SCH ×3 (07:53→21:52)
[2019-04-18] MEDS: SODIUM CHLORIDE 1 GM TAB PO SCH ×2 (07:53→21:51)
[2019-04-18] MEDS: PANTOPRAZOLE 40MG TAB (PROTONIX) PO SCH ×2 (07:54→21:53)
[2019-04-18] MEDS: DOCUSATE SODIUM 100 MG CAP PO SCH ×2 (07:54→21:00)
[2019-04-18] MEDS: FERROUS GLUCONATE 324 MG TAB PO SCH (07:54)
[2019-04-18] MEDS: MAGNESIUM OXIDE 400 MG TAB (MAG-OX) PO SCH ×2 (07:54→21:50)
[2019-04-18] MEDS: FUROSEMIDE 20 MG TAB PO SCH (07:54)
[2019-04-18] MEDS: LOSARTAN 25 MG TAB PO SCH (07:55)
[2019-04-18] MEDS: POLYVINYL ALCOHOL OPHTH SOLN 15 ML(LIQUITEARS) OU SCH ×4 (07:56→21:53)
[2019-04-18] MEDS: BISACODYL 10 MG SUPP PR SCH ×2 (07:56→09:00)
[2019-04-18] MEDS: NYSTATIN 100,000 UNITS/GM TOPICAL PWD 15 GM TOP SCH ×2 (07:58→21:55)
[2019-04-18] MEDS: POLYSPORIN TOPICAL OINTMENT 15GM TOP SCH (07:59)
[2019-04-18] MEDS: LIDOCAINE 5% OINT 30 GM TOP SCH ×2 (08:00→21:54)
[2019-04-18 14:00] VITALS: BP 131/62
[2019-04-18] MEDS: SODIUM CHLORIDE 0.9% INJ 10 ML SYR IV PRN (17:09)
[2019-04-18] MEDS: ATORVASTATIN 20 MG TAB PO SCH (21:50)
[2019-04-18] MEDS: SOLIFENACIN 5 MG TAB PO SCH (21:51)
[2019-04-18] MEDS: SENNA 8.6 MG TAB (SENOKOT) PO SCH (21:51)
[2019-04-18 22:00] VITALS: BP 123/58
[2019-04-19 06:00] VITALS: BP 139/66
[2019-04-19] MEDS: GABAPENTIN 300 MG CAP PO SCH ×3 (06:05→21:53)
[2019-04-19] MEDS: SODIUM CHLORIDE 0.9% INJ 10 ML SYR IV SCH ×2 (06:06→18:00)
[2019-04-19 07:59] LABS: BLOOD UREA NITROGEN 22 MG/DL (7-18); CALCIUM LEVEL 8.6 MG/DL (8.8-10.2); CARBON DIOXIDE LEVEL 29 MEQ/L (21-32); CHLORIDE LEVEL 103 MEQ/L (98-107); CREATININE FOR GFR 1.09 MG/DL (0.70-1.30); GLOMERULAR FILTRATION RATE > 60.0 (>42); GLUCOSE, FASTING 125 MG/DL (70-100); POTASSIUM SERUM 4.4 MEQ/L (3.5-5.1); SODIUM LEVEL 137 MEQ/L (136-145)
[2019-04-19] MEDS: DOCUSATE SODIUM 100 MG CAP PO SCH ×2 (08:31→21:00)
[2019-04-19] MEDS: SODIUM CHLORIDE 1 GM TAB PO SCH ×2 (08:31→21:52)
[2019-04-19] MEDS: FUROSEMIDE 20 MG TAB PO SCH (08:31)
[2019-04-19] MEDS: FERROUS GLUCONATE 324 MG TAB PO SCH (08:31)
[2019-04-19] MEDS: FENOFIBRATE 145 MG TAB (TRICOR) PO SCH (08:31)
[2019-04-19] MEDS: HumaLOG INSULIN (NovoLOG) PER UNIT SC SCH ×3 (08:31→17:45)
[2019-04-19] MEDS: APIXABAN 2.5 MG TAB (ELIQUIS) PO SCH ×2 (08:31→21:53)
[2019-04-19] MEDS: PANTOPRAZOLE 40MG TAB (PROTONIX) PO SCH ×2 (08:32→21:54)
[2019-04-19] MEDS: POTASSIUM CHLORIDE 10 MEQ SR TABLET PO SCH (08:32)
[2019-04-19] MEDS: MAGNESIUM OXIDE 400 MG TAB (MAG-OX) PO SCH ×2 (08:32→21:53)
[2019-04-19] MEDS: LOSARTAN 25 MG TAB PO SCH (08:32)
[2019-04-19] MEDS: ACETAMINOPHEN TAB 650MG DOSE (2X325MG) PO SCH ×3 (08:33→21:52)
[2019-04-19] MEDS: LIDOCAINE 5% OINT 30 GM TOP SCH ×2 (08:40→21:00)
[2019-04-19] MEDS: POLYVINYL ALCOHOL OPHTH SOLN 15 ML(LIQUITEARS) OU SCH ×4 (08:41→21:00)
[2019-04-19] MEDS: NYSTATIN 100,000 UNITS/GM TOPICAL PWD 15 GM TOP SCH ×2 (08:41→21:00)
[2019-04-19] MEDS: SPIRONOLACTONE 12.5MG PER 1/2 TABLET PO SCH (08:45)
[2019-04-19] MEDS: BISACODYL 10 MG SUPP PR SCH (08:46)
[2019-04-19] MEDS: POLYSPORIN TOPICAL OINTMENT 15GM TOP SCH (08:47)
--- NOTE | 2019-04-19 12:35 | IPNPDOC ---
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 REVIEW OF SYSTEMS: The following is a completed review of systems and has been reviewed. Review of systems otherwise unremarkable. PAIN: Patient self reports mild right knee pain EYES: No recent vision changes EARS, NOSE, & THROAT: No throat pain, or dysphagia, or rhinorrhea CARDIOVASCULAR: Denies chest pain or palpitations PULMONARY: Denies shortness of breath GASTROINTESTINAL: Denies constipation/diarrhea GENITOURINARY:+ neurogenic bladder MUSCULOSKELETAL: right knee pain NEUROLOGICAL:incomplete paraplegia HEMATOLOGICAL: +anemia SKIN: suprapubic rash PSYCHIATRIC: Unremarkable All other review of systems found to be negative. PHYSICAL EXAMINATION: VITAL SIGNS: Please see below. GENERAL: Pleasant and cooperative. No acute distress. HEENT: PERRL. Extraocular movements intact. Clear conjunctiva CARDIOVASCULAR: Regular rate and rhythm. No murmurs, rubs, or gallops LUNGS: Clear to auscultation bilaterally. No wheezes. No rhonchi ABDOMEN: Soft, nontender, mildly distended Positive bowel sounds. +abdominal incision c/d/i, + suprapubic catheter NEUROLOGICAL: Alert and oriented times three. Cranial nerves II through XII marcos sly intact. Sensation decreased to light touch mid-trunk and below EXTREMITIES: 5-\5 strength bilateral upper extremities. 3/5 right hip flexors, knee extensors, ankle AF and EHL, 4-/5 LLE resolved right knee swelling, knee, no warmth, mild tenderness +right ankle swelling without erythema left D3 +callous with dime-size blanchable purple hue, no open skin ASSESSMENT:73-year-old M with past medical history of incomplete paraplegia with partial bowel resection who presents status post dehydration with ileus and deconditioning PLAN: 1. Rehab: PT- stretch/strenghten/maintain ROM bilat LE, improve transfers, and walking endurance, requiring assistance for functional transfers OT -stretch/strenghten/maintain ROM bilat UE, teach shoulder protection exercises 2. Neuro: incomplete paraplegia, monitor for worsening function, utilize AFO for foot drop 3. CArdiac: diastolic chronic CHF with Afib, c/u lower dose Eliquis in setting of recent GI bleed and drop in Hgb/Hct, c/u aldactone -hyponatremia resolving, c/ulasix -htn- c/u SOO, medicine consulted to assist in management -hld c/u statin and Tricor 4. resp: encourage incentive spirometry, LEEANN- c/u CPAP 5. Hyponatremia- improving, c/u fluid restriction, c/u NaCl supplements, sodium levels normalizing, c/u low dose lasix 6. Heme: anemia due to chronic disease likely and GI loss, will monitor and transfuse if <8 7. endo: DM c/u insulin coverage and adjust prn 8. - neurogenic bladder, c/u suprapubic cath care changed 04/12/19 will need f/u as outpatient 9. GI: neurogenic bowel, c/u bowel regiment, monitor for signs of obstruction 10. Skin: turm q2 in bed, zinc to sacrum, nystatin powder to lower abdomen 11. DVT ppx: TEDs and on Elqiuis 12. MSK: right knee effusion resolved, now with dependent right ankle swelling which also has improved with acewrapping and elevation- -c/u ice, topical lidocaine, tylenol standing for right knee OA 13. Skin: left toe callous with what appears to be bruising, cover with bandage- does not appear to be a pressure ulcer 12. Dispo: 04/25/19 to home, progressing towards goals Allergies Coded Allergies: Sulfa (Sulfonamide Antibiotics) (Verified Allergy, Intermediate, hives, 12/20/18) alcohol (Verified Allergy, Intermediate, soap rash, 12/20/18) carisoprodol (Verified Allergy, Intermediate, hives, 12/20/18) gum mastic (Verified Allergy, Intermediate, soap rash, 12/20/18) purell mosture therapy latex (Verified Allergy, Intermediate, rash, 12/20/18) methyl salicylate (Verified Allergy, Intermediate, soap rash, 12/20/18) methylparaben (Verified Allergy, Intermediate, hives, 12/20/18) morphine (Verified Allergy, Intermediate, HIVES RASH AT SITE LIKELY HISTAMINE RELEASE, 12/20/18) storax (Verified Allergy, Intermediate, soap rash, 12/20/18) SOO Inhibitors (Verified Allergy, Unknown, 12/20/18) TAPE (Verified Allergy, Unknown, STERISTRIPS, 02/10/18) hydrochlorothiazide (Verified Allergy, Unknown, unsure of reaction, 12/20/18) nitrofurantoin (Verified Adverse Reaction, Mild, diarrhea, 12/20/18) Vital Signs Vital Signs Date Time Temp Pulse Resp B/P (MAP) Pulse Ox O2 Delivery O2 Flow Rate FiO2 04/19/19 08:32 139/66 04/19/19 06:00 97.3 81 18 99 Laboratory Data CBC/BMP Laboratory Tests 04/19/19 06:04 Calcium Level 8.6 L Labs 24H Laboratory Tests 2 04/19/19 06:04: Anion Gap 5L, Glomerular Filtration Rate > 60.0, Blood Urea Nitrogen 22H, Cr eatinine 1.09, Sodium Level 137, Potassium Level 4.4, Chloride Level 103, Carbon Dioxide Level 29, Calcium Level 8.6L Current Medications Current Medications Current Medications Medications (Trade) Dose Ordered Sig/Rick Route PRN Reason Start Time Stop Time Status Last Admin Dose Admin Acetaminophen (Tylenol Tab) 650 mg Q6HP PRN PO PAIN / FEVER 04/09/19 18:00 04/11/19 10:43 DC 04/10/19 14:29 Acetaminophen (Tylenol Tab) 650 mg TID PO 04/11/19 09:00 04/19/19 08:33 Apixaban (Eliquis) 2.5 mg BID PO 04/09/19 21:00 04/19/19 08:31 Artificial Tears (Akwa Tears) 2 drop QID OU 04/09/19 21:00 04/19/19 08:41 Atorvastatin Calcium (Lipitor) 40 mg QHS PO 04/09/19 21:00 04/18/19 21:50 Bacitracin/ Polymyxin B Sulfate (Polysporin Top Oint) apply to laceration on abdomen DAILY TOP 04/16/19 09:00 04/19/19 08:47 Bisacodyl (Dulcolax Suppository) 10 mg DAILY ID 04/09/19 19:00 04/15/19 08:35 Bisacodyl (Dulcolax Suppository) 10 mg DAILYPRN PRN ID CONSTIPATION 04/09/19 18:00 Dextrose (Dextrose 50%) 25 ml ASDIRECTED PRN IV SEE LABEL COMMENTS 04/16/19 14:15 UNV Dextrose (Dextrose 50%) 25 ml ASDIRECTED PRN IV SEE LABEL COMMENTS 04/11/19 10:45 Docusate Sodium (Colace) 100 mg BID PO 04/09/19 21:00 04/19/19 08:31 Fenofibrate (Tricor) 145 mg DAILY PO 04/10/19 09:00 04/19/19 08:31 Ferrous Gluconate (Fergon) 324 mg DAILY PO 04/10/19 09:00 04/19/19 08:31 Furosemide (Lasix) 20 mg DAILY PO 04/18/19 09:00 04/19/19 08:31 Gabapentin (Neurontin) 600 mg Q8H PO 04/09/19 22:00 04/19/19 06:05 Glucagon (Glucagon) 1 mg ASDIRECTED PRN SC SEE LABEL COMMENTS 04/16/19 14:15 UNV Glucagon (Glucagon) 1 mg ASDIRECTED PRN SC SEE LABEL COMMENTS 04/11/19 10:45 Glucose (Glucose) 16 GM ASDIRECTED PRN PO SEE LABEL COMMENTS 04/16/19 14:15 UNV Glucose (Glucose) 16 GM ASDIRECTED PRN PO SEE LABEL COMMENTS 04/11/19 10:45 Heparin Sodium (Heparin (Flush)) 200 units ASDIRECTED PRN IV SEE LABEL COMMENTS 04/09/19 22:45 04/18/19 17:09 Heparin Sodium (Heparin (Flush)) 200 units PICC IV 04/10/19 06:00 04/19/19 06:06 Insulin Detemir (Levemir Insulin) 5 units BID SC 04/09/19 21:00 04/16/19 09:46 DC 04/15/19 20:28 Insulin Human Lispro (HumaLOG INSULIN) SEE PROTOCOL TABLE AC SC 04/16/19 17:30 04/19/19 08:31 Insulin Human Lispro (HumaLOG INSULIN) SEE PROTOCOL TABLE AC SC 04/11/19 12:00 04/16/19 09:47 DC 04/15/19 17:35 Insulin Human Lispro (HumaLOG INSULIN) SEE PROTOCOL TABLE QHS SC 04/11/19 21:00 04/16/19 09:47 DC Levofloxacin (Levaquin) 500 mg DAILY@1800 PO 04/11/19 18:00 04/12/19 18:01 DC 04/12/19 16:52 Lidocaine HCl (Lidocaine 5% Oint) TO Right knee BID TOP 04/11/19 21:00 04/19/19 08:40 Losartan Potassium (Cozaar) 12.5 mg DAILY PO 04/10/19 09:00 04/19/19 08:32 Magnesium Oxide (Mag-Ox) 400 mg BID PO 04/09/19 21:00 04/19/19 08:32 Miscellaneous (Unresolved Clarification Entry) SEE LABEL COMMENTS DAILY XX 04/15/19 09:00 04/16/19 09:51 DC Miscellaneous (Unresolved Clarification Entry) SEE LABEL COMMENTS DAILY XX 04/16/19 09:00 04/16/19 10:23 DC Nystatin (Mycostatin Powder, Nystop) apply to suzy-suprapubic area BID TOP 04/10/19 21:00 04/19/19 08:41 Pantoprazole Sodium (Protonix) 40 mg BID PO 04/09/19 21:00 04/19/19 08:32 Potassium Chloride (Micro-K Extencaps) 20 meq DAILY PO 04/10/19 09:00 04/19/19 08:32 Senna (Senokot) 1 tab QHS PO 04/09/19 21:00 04/18/19 21:51 Sodium Chloride (Saline Lock Flush) 10 ml ASDIRECTED PRN IV SEE LABEL COMMENTS 04/09/19 22:45 04/18/19 17:09 Sodium Chloride (Saline Lock Flush) 10 ml PICC IV 04/10/19 06:00 04/19/19 06:06 Sodium Chloride (Sodium Chloride) 0.5 gm DAILY PO 04/15/19 09:00 04/18/19 10:14 DC 04/18/19 07:53 Sodium Chloride (Sodium Chloride) 0.5 gm TID PO 04/12/19 21:00 04/14/19 11:04 DC 04/14/19 08:56 Sodium Chloride (Sodium Chloride) 1 gm BID PO 04/18/19 21:00 04/19/19 08:31 Sodium Chloride (Sodium Chloride) 1 gm TID PO 04/10/19 16:00 04/12/19 18:11 DC 04/12/19 15:19 Solifenacin (Vesicare) 10 mg QHS PO 04/09/19 21:00 04/18/19 21:51 Spironolactone (Aldactone) 12.5 mg DAILY PO 04/10/19 09:00 04/19/19 08:45 Zinc Oxide (Boudreauxs Butt Paste) to sacrum BID TOP 04/10/19 21:00 04/12/19 10:32 DC 04/12/19 08:22 MARY LEON MD Apr 19, 2019 12:35
--- NOTE | 2019-04-19 12:37 | IPNPDOC ---
PM&R Progress Note DATE OF SERVICE: Apr 19, 2019 Material Hauler Progress Note Subjective: Patient reporting he feels well and that he is getting stronger. He is agreeable to removing his PICC line. He is able to tolerate the 1500cc fluid restriction and does not feel his legs are more swollen or having difficulty breathing. REVIEW OF SYSTEMS: The following is a completed review of systems and has been reviewed. Review of systems otherwise unremarkable. PAIN: Patient self reports mild right knee pain EYES: No recent vision changes EARS, NOSE, & THROAT: No throat pain, or dysphagia, or rhinorrhea CARDIOVASCULAR: Denies chest pain or palpitations PULMONARY: Denies shortness of breath GASTROINTESTINAL: Denies constipation/diarrhea GENITOURINARY:+ neurogenic bladder MUSCULOSKELETAL: right knee pain NEUROLOGICAL:incomplete paraplegia HEMATOLOGICAL: +anemia SKIN: suprapubic rash PSYCHIATRIC: Unremarkable All other review of systems found to be negative. PHYSICAL EXAMINATION: VITAL SIGNS: Please see below. GENERAL: Pleasant and cooperative. No acute distress. HEENT: PERRL. Extraocular movements intact. Clear conjunctiva CARDIOVASCULAR: Regular rate and rhythm. No murmurs, rubs, or gallops LUNGS: Clear to auscultation bilaterally. No wheezes. No rhonchi ABDOMEN: Soft, nontender, mildly distended Positive bowel sounds. +abdominal incision c/d/i, + suprapubic catheter NEUROLOGICAL: Alert and oriented times three. Cranial nerves II through XII grossly intact. Sensation decreased to light touch mid-trunk and below EXTREMITIES: 5-\5 strength bilateral upper extremities. 3/5 right hip flexors, knee extensors, ankle AF and EHL, 4-/5 LLE resolved right knee swelling, knee, no warmth, mild tenderness +right ankle swelling without erythema mild bilateral ankle edema LLE>RLE left D3 +callous with dime-size blanchable purple hue, no open skin ASSESSMENT:73-year-old M with past medical history of incomplete paraplegia with partial bowel resection who presents status post dehydration with ileus and dec onditioning PLAN: 1. Rehab: PT- stretch/strenghten/maintain ROM bilat LE, improve transfers, and walking endurance, requiring assistance for functional transfers OT -stretch/strenghten/maintain ROM bilat UE, teach shoulder protection exercises 2. Neuro: incomplete paraplegia, monitor for worsening function, utilize AFO for foot drop 3. CArdiac: diastolic chronic CHF with Afib, c/u lower dose Eliquis in setting of recent GI bleed and drop in Hgb/Hct, c/u aldactone -hyponatremia resolving, c/ulasix -htn- c/u SOO, medicine consulted to assist in management -hld c/u statin and Tricor 4. resp: encourage incentive spirometry, LEEANN- c/u CPAP 5. Hyponatremia- reolved c/u fluid restriction, c/u NaCl supplements, sodium levels normalizing, c/u low dose lasix 6. Heme: anemia due to chronic disease likely and GI loss, will monitor and transfuse if <8 7. endo: DM c/u insulin coverage and adjust prn 8. - neurogenic bladder, c/u suprapubic cath care changed 04/12/19 will need f/u as outpatient 9. GI: neurogenic bowel, c/u bowel regiment, monitor for signs of obstruction 10. Skin: turm q2 in bed, zinc to sacrum, nystatin powder to lower abdomen 11. DVT ppx: TEDs and on Elqiuis 12. MSK: right knee effusion resolved, now with dependent right ankle swelling which also has improved with acewrapping and elevation- -c/u ice, topical lidocaine, tylenol standing for right knee OA 13. Skin: left toe callous with what appears to be bruising, cover with bandage- does not appear to be a pressure ulcer -c/u acewrapping LE 12. Dispo: 04/25/19 to home, progressing towards goals Allergies Coded Allergies: Sulfa (Sulfonamide Antibiotics) (Verified Allergy, Intermediate, hives, 12/20/18) alcohol (Verified Allergy, Intermediate, soap rash, 12/20/18) carisoprodol (Verified Allergy, Intermediate, hives, 12/20/18) gum mastic (Verified Allergy, Intermediate, soap rash, 12/20/18) purell mosture therapy latex (Verified Allergy, Intermediate, rash, 12/20/18) methyl salicylate (Verified Allergy, Intermediate, soap rash, 12/20/18) methylparaben (Verified Allergy, Intermediate, hives, 12/20/18) morphine (Verified Allergy, Intermediate, HIVES RASH AT SITE LIKELY HISTAMINE RELEASE, 12/20/18) storax (Verified Allergy, Intermediate, soap rash, 12/20/18) SOO Inhibitors (Verified Allergy, Unknown, 12/20/18) TAPE (Verified Allergy, Unknown, STERISTRIPS, 02/10/18) hydrochlorothiazide (Verified Allergy, Unknown, unsure of reaction, 12/20/18) nitrofurantoin (Verified Adverse Reaction, Mild, diarrhea, 12/20/18) Vital Signs Vital Signs Date Time Temp Pulse Resp B/P (MAP) Pulse Ox O2 Delivery O2 Flow Rate FiO2 04/19/19 08:32 139/66 04/19/19 06:00 97.3 81 18 99 Laboratory Data CBC/BMP Laboratory Tests 04/19/19 06:04 Calcium Level 8.6 L Labs 24H Laboratory Tests 2 04/19/19 06:04: Anion Gap 5L, Glomerular Filtration Rate > 60.0, Blood Urea Nitrogen 22H, Creatinine 1.09, Sodium Level 137, Potassium Level 4.4, Chloride Level 103, Carbon Dioxide Level 29, Calcium Level 8.6L Current Medications Current Medications Current Medications Medications (Trade) Dose Ordered Sig/Rick Route PRN Reason Start Time Stop Time Status Last Admin Dose Admin Acetaminophen (Tylenol Tab) 650 mg Q6HP PRN PO PAIN / FEVER 04/09/19 18:00 04/11/19 10:43 DC 04/10/19 14:29 Acetaminophen (Tylenol Tab) 650 mg TID PO 04/11/19 09:00 04/19/19 08:33 Apixaban (Eliquis) 2.5 mg BID PO 04/09/19 21:00 04/19/19 08:31 Artificial Tears (Akwa Tears) 2 drop QID OU 04/09/19 21:00 04/19/19 08:41 Atorvastatin Calcium (Lipitor) 40 mg QHS PO 04/09/19 21:00 04/18/19 21:50 Bacitracin/ Polymyxin B Sulfate (Polysporin Top Oint) apply to laceration on abdomen DAILY TOP 04/16/19 09:00 04/19/19 08:47 Bisacodyl (Dulcolax Suppository) 10 mg DAILY [place] 04/09/19 19:00 04/15/19 08:35 Bisacodyl (Dulcolax Suppository) 10 mg DAILYPRN PRN [place] CONSTIPATION 04/09/19 18:00 Dextrose (Dextrose 50%) 25 ml ASDIRECTED PRN IV SEE LABEL COMMENTS 04/16/19 14:15 UNV Dextrose (Dextrose 50%) 25 ml ASDIRECTED PRN IV SEE LABEL COMMENTS 04/11/19 10:45 Docusate Sodium (Colace) 100 mg BID PO 04/09/19 21:00 04/19/19 08:31 Fenofibrate (Tricor) 145 mg DAILY PO 04/10/19 09:00 04/19/19 08:31 Ferrous Gluconate (Fergon) 324 mg DAILY PO 04/10/19 09:00 04/19/19 08:31 Furosemide (Lasix) 20 mg DAILY PO 04/18/19 09:00 04/19/19 08:31 Gabapentin (Neurontin) 600 mg Q8H PO 04/09/19 22:00 04/19/19 06:05 Glucagon (Glucagon) 1 mg ASDIRECTED PRN SC SEE LABEL COMMENTS 04/16/19 14:15 UNV Glucagon (Glucagon) 1 mg ASDIRECTED PRN SC SEE LABEL COMMENTS 04/11/19 10:45 Glucose (Glucose) 16 GM ASDIRECTED PRN PO SEE LABEL COMMENTS 04/16/19 14:15 UNV Glucose (Glucose) 16 GM ASDIRECTED PRN PO SEE LABEL COMMENTS 04/11/19 10:45 Heparin Sodium (Heparin (Flush)) 200 units ASDIRECTED PRN IV SEE LABEL COMMENTS 04/09/19 22:45 04/18/19 17:09 Heparin Sodium (Heparin (Flush)) 200 units PICC IV 04/10/19 06:00 04/19/19 06:06 Insulin Detemir (Levemir Insulin) 5 units BID SC 04/09/19 21:00 04/16/19 09:46 DC 04/15/19 20:28 Insulin Human Lispro (HumaLOG INSULIN) SEE PROTOCOL TABLE AC SC 04/16/19 17:30 04/19/19 08:31 Insulin Human Lispro (HumaLOG INSULIN) SEE PROTOCOL TABLE AC SC 04/11/19 12:00 04/16/19 09:47 DC 04/15/19 17:35 Insulin Human Lispro (HumaLOG INSULIN) SEE PROTOCOL TABLE QHS SC 04/11/19 21:00 04/16/19 09:47 DC Levofloxacin (Levaquin) 500 mg DAILY@1800 PO 04/11/19 18:00 04/12/19 18:01 DC 04/12/19 16:52 Lidocaine HCl (Lidocaine 5% Oint) TO Right knee BID TOP 04/11/19 21:00 04/19/19 08:40 Losartan Potassium (Cozaar) 12.5 mg DAILY PO 04/10/19 09:00 04/19/19 08:32 Magnesium Oxide (Mag-Ox) 400 mg BID PO 04/09/19 21:00 04/19/19 08:32 Miscellaneous (Unresolved Clarification Entry) SEE LABEL COMMENTS DAILY XX 04/15/19 09:00 04/16/19 09:51 DC Miscellaneous (Unresolved Clarification Entry) SEE LABEL COMMENTS DAILY XX 04/16/19 09:00 04/16/19 10:23 DC Nystatin (Mycostatin Powder, Nystop) apply to suzy-suprapubic area BID TOP 04/10/19 21:00 04/19/19 08:41 Pantoprazole Sodium (Protonix) 40 mg BID PO 04/09/19 21:00 04/19/19 08:32 Potassium Chloride (Micro-K Extencaps) 20 meq DAILY PO 04/10/19 09:00 04/19/19 08:32 Senna (Senokot) 1 tab QHS PO 04/09/19 21:00 04/18/19 21:51 Sodium Chloride (Saline Lock Flush) 10 ml ASDIRECTED PRN IV SEE LABEL COMMENTS 04/09/19 22:45 04/18/19 17:09 Sodium Chloride (Saline Lock Flush) 10 ml PICC IV 04/10/19 06:00 04/19/19 06:06 Sodium Chloride (Sodium Chloride) 0.5 gm DAILY PO 04/15/19 09:00 04/18/19 10:14 DC 04/18/19 07:53 Sodium Chloride (Sodium Chloride) 0.5 gm TID PO 04/12/19 21:00 04/14/19 11:04 DC 04/14/19 08:56 Sodium Chloride (Sodium Chloride) 1 gm BID PO 04/18/19 21:00 04/19/19 08:31 Sodium Chloride (Sodium Chloride) 1 gm TID PO 04/10/19 16:00 04/12/19 18:11 DC 04/12/19 15:19 Solifenacin (Vesicare) 10 mg QHS PO 04/09/19 21:00 04/18/19 21:51 Spironolactone (Aldactone) 12.5 mg DAILY PO 04/10/19 09:00 04/19/19 08:45 Zinc Oxide (Boudreauxs Butt Paste) to sacrum BID TOP 04/10/19 21:00 04/12/19 10:32 DC 04/12/19 08:22 MARY LEON MD Apr 19, 2019 12:37
[2019-04-19 14:00] VITALS: BP 129/61
[2019-04-19 20:00] VITALS: BP 130/60
[2019-04-19] MEDS: ATORVASTATIN 20 MG TAB PO SCH (21:53)
[2019-04-19] MEDS: SENNA 8.6 MG TAB (SENOKOT) PO SCH (21:53)
[2019-04-19] MEDS: SOLIFENACIN 5 MG TAB PO SCH (21:53)
[2019-04-19] MEDS: SODIUM CHLORIDE 0.9% INJ 10 ML SYR IV PRN (21:54)
[2019-04-20] MEDS: GABAPENTIN 300 MG CAP PO SCH ×3 (05:46→21:45)
[2019-04-20 05:56] LABS: BLOOD UREA NITROGEN 21 MG/DL (7-18); CALCIUM LEVEL 8.8 MG/DL (8.8-10.2); CARBON DIOXIDE LEVEL 28 MEQ/L (21-32); CHLORIDE LEVEL 104 MEQ/L (98-107); CREATININE FOR GFR 1.18 MG/DL (0.70-1.30); GLOMERULAR FILTRATION RATE > 60.0 (>42); GLUCOSE, FASTING 137 MG/DL (70-100); POTASSIUM SERUM 4.7 MEQ/L (3.5-5.1); SODIUM LEVEL 138 MEQ/L (136-145)
[2019-04-20 06:00] VITALS: BP 113/59
[2019-04-20] MEDS: HumaLOG INSULIN (NovoLOG) PER UNIT SC SCH ×3 (09:10→17:37)
[2019-04-20] MEDS: SPIRONOLACTONE 12.5MG PER 1/2 TABLET PO SCH (09:12)
[2019-04-20] MEDS: ACETAMINOPHEN TAB 650MG DOSE (2X325MG) PO SCH ×3 (09:12→21:45)
[2019-04-20] MEDS: SODIUM CHLORIDE 1 GM TAB PO SCH ×2 (09:12→21:45)
[2019-04-20] MEDS: APIXABAN 2.5 MG TAB (ELIQUIS) PO SCH ×2 (09:13→21:45)
[2019-04-20] MEDS: LOSARTAN 25 MG TAB PO SCH (09:13)
[2019-04-20] MEDS: FENOFIBRATE 145 MG TAB (TRICOR) PO SCH (09:14)
[2019-04-20] MEDS: POTASSIUM CHLORIDE 10 MEQ SR TABLET PO SCH (09:14)
[2019-04-20] MEDS: DOCUSATE SODIUM 100 MG CAP PO SCH ×2 (09:14→21:00)
[2019-04-20] MEDS: PANTOPRAZOLE 40MG TAB (PROTONIX) PO SCH ×2 (09:14→21:45)
[2019-04-20] MEDS: MAGNESIUM OXIDE 400 MG TAB (MAG-OX) PO SCH ×2 (09:14→21:40)
[2019-04-20] MEDS: FERROUS GLUCONATE 324 MG TAB PO SCH (09:14)
[2019-04-20] MEDS: FUROSEMIDE 20 MG TAB PO SCH (09:14)
[2019-04-20] MEDS: BISACODYL 10 MG SUPP PR SCH (09:15)
[2019-04-20] MEDS: POLYVINYL ALCOHOL OPHTH SOLN 15 ML(LIQUITEARS) OU SCH ×4 (09:20→21:46)
[2019-04-20] MEDS: POLYSPORIN TOPICAL OINTMENT 15GM TOP SCH (09:20)
[2019-04-20] MEDS: NYSTATIN 100,000 UNITS/GM TOPICAL PWD 15 GM TOP SCH ×2 (09:21→21:46)
[2019-04-20] MEDS: LIDOCAINE 5% OINT 30 GM TOP SCH ×2 (09:22→21:46)
[2019-04-20 14:00] VITALS: BP 142/65
--- NOTE | 2019-04-20 14:49 | IPNPDOC ---
PM&R Progress Note DATE OF SERVICE: Apr 20, 2019 Information Management Manager Progress Note Subjective: Patient reporting he feels well overall and understands hsi family would like for him to be more independent with his transfers. REVIEW OF SYSTEMS: The following is a completed review of systems and has been reviewed. Review of systems otherwise unremarkable. PAIN: Patient self reports mild right knee pain EYES: No recent vision changes EARS, NOSE, & THROAT: No throat pain, or dysphagia, or rhinorrhea CARDIOVASCULAR: Denies chest pain or palpitations PULMONARY: Denies shortness of breath GASTROINTESTINAL: Denies constipation/diarrhea GENITOURINARY:+ neurogenic bladder MUSCULOSKELETAL: right knee pain NEUROLOGICAL:incomplete paraplegia HEMATOLOGICAL: +anemia SKIN: suprapubic rash PSYCHIATRIC: Unremarkable All other review of systems found to be negative. PHYSICAL EXAMINATION: VITAL SIGNS: Please see below. GENERAL: Pleasant and cooperative. No acute distress. HEENT: PERRL. Extraocular movements intact. Clear conjunctiva CARDIOVASCULAR: Regular rate and rhythm. No murmurs, rubs, or gallops LUNGS: Clear to auscultation bilaterally. No wheezes. No rhonchi ABDOMEN: Soft, nontender, mildly distended Positive bowel sounds. +abdominal incision c/d/i, + suprapubic catheter NEUROLOGICAL: Alert and oriented times three. Cranial nerves II through XII grossly intact. Sensation decreased to light touch mid-trunk and below EXTREMITIES: 5-\5 strength bilateral upper extremities. 3/5 right hip flexors, knee extensors, ankle AF and EHL, 4-/5 LLE resolved right knee swelling, knee, no warmth, mild tenderness +right ankle swelling without erythema mild bilateral ankle edema LLE>RLE left D3 +callous with dime-size blanchable purple hue, no open skin ASSESSMENT:73-year-old M with past medical history of incomplete paraplegia with partial bowel resection who presents status post dehydration with ileus and deconditioning PLAN: 1. Rehab: PT- stretch/strenghten/maintain ROM bilat LE, improve transfers, and walking endurance, requiring assistance for functional transfers OT -stretch/strenghten/maintain ROM bilat UE, teach shoulder protection exercises 2. Neuro: incomplete paraplegia, monitor for worsening function, utilize AFO for foot drop 3. CArdiac: diastolic chronic CHF with Afib, c/u lower dose Eliquis in setting of recent GI bleed and drop in Hgb/Hct, c/u aldactone -hyponatremia resolving, c/ulasix -htn- c/u SOO, medicine consulted to assist in management -hld c/u statin and Tricor 4. resp: encourage incentive spirometry, LEEANN- c/u CPAP 5. Hyponatremia- resolved c/u fluid restriction, c/u NaCl supplements, sodium levels normalizing, c/u low dose lasix 6. Heme: anemia due to chronic disease likely and GI loss, will monitor and transfuse if <8 7. endo: DM c/u insulin coverage and adjust prn 8. - neurogenic bladder, c/u suprapubic cath care changed 04/12/19 will need f/u as outpatient 9. GI: neurogenic bowel, c/u bowel regiment, monitor for signs of obstruction 10. Skin: turm q2 in bed, zinc to sacrum, nystatin powder to lower abdomen 11. DVT ppx: TEDs and on Elqiuis 12. MSK: right knee effusion resolved, now with dependent right ankle swelling which also has improved with acewrapping and elevation- -c/u ice, topical lidocaine, tylenol standing for right knee OA 13. Skin: left toe callous with what appears to be bruising, cover with bandage- does not appear to be a pressure ulcer -c/u acewrapping LE 12. Dispo: 04/25/19 to home, progressing towards goals Allergies Coded Allergies: Sulfa (Sulfonamide Antibiotics) (Verified Allergy, Intermediate, hives, 12/20/18) alcohol (Verified Allergy, Intermediate, soap rash, 12/20/18) carisoprodol (Verified Allergy, Intermediate, hives, 12/20/18) gum mastic (Verified Allergy, Intermediate, soap rash, 12/20/18) purell mosture therapy latex (Verified Allergy, Intermediate, rash, 12/20/18) methyl salicylate (Verified Allergy, Intermediate, soap rash, 12/20/18) methylparaben (Verified Allergy, Intermediate, hives, 12/20/18) morphine (Verified Allergy, Intermediate, HIVES RASH AT SITE LIKELY HISTAMINE RELEASE, 12/20/18) storax (Verified Allergy, Intermediate, soap rash, 12/20/18) SOO Inhibitors (Verified Allergy, Unknown, 12/20/18) TAPE (Verified Allergy, Unknown, STERISTRIPS, 02/10/18) hydrochlorothiazide (Verified Allergy, Unknown, unsure of reaction, 12/20/18) nitrofurantoin (Verified Adverse Reaction, Mild, diarrhea, 12/20/18) Vital Signs Vital Signs Date Time Temp Pulse Resp B/P (MAP) Pulse Ox O2 Delivery O2 Flow Rate FiO2 04/20/19 09:13 113/59 04/20/19 06:00 97.4 83 18 98 Laboratory Data CBC/BMP Laboratory Tests 04/20/19 05:09 Calcium Level 8.8 Labs 24H Laboratory Tests 2 04/20/19 05:09: Anion Gap 6L, Glomerular Filtration Rate > 60.0, Blood Urea Nitrogen 21H, Creatinine 1.18, Sodium Level 138, Potassium Level 4.7, Chloride Level 104, Carbon Dioxide Level 28, Calcium Level 8.8 Current Medications Current Medications Current Medications Medications (Trade) Dose Ordered Sig/Rick Route PRN Reason Start Time Stop Time Status Last Admin Dose Admin Acetaminophen (Tylenol Tab) 650 mg Q6HP PRN PO PAIN / FEVER 04/09/19 18:00 04/11/19 10:43 DC 04/10/19 14:29 Acetaminophen (Tylenol Tab) 650 mg TID PO 04/11/19 09:00 04/20/19 09:12 Apixaban (Eliquis) 2.5 mg BID PO 04/09/19 21:00 04/20/19 09:13 Artificial Tears (Akwa Tears) 2 drop QID OU 04/09/19 21:00 04/20/19 12:46 Atorvastatin Calcium (Lipitor) 40 mg QHS PO 04/09/19 21:00 04/19/19 21:53 Bacitracin/ Polymyxin B Sulfate (Polysporin Top Oint) apply to laceration on abdomen DAILY TOP 04/16/19 09:00 04/20/19 09:20 Bisacodyl (Dulcolax Suppository) 10 mg DAILY [place] 04/09/19 19:00 04/20/19 09:15 Bisacodyl (Dulcolax Suppository) 10 mg DAILYPRN PRN [place] CONSTIPATION 04/09/19 18:00 Dextrose (Dextrose 50%) 25 ml ASDIRECTED PRN IV SEE LABEL COMMENTS 04/16/19 14:15 UNV Dextrose (Dextrose 50%) 25 ml ASDIRECTED PRN IV SEE LABEL COMMENTS 04/11/19 10:45 Docusate Sodium (Colace) 100 mg BID PO 04/09/19 21:00 04/20/19 09:14 Fenofibrate (Tricor) 145 mg DAILY PO 04/10/19 09:00 04/20/19 09:14 Ferrous Gluconate (Fergon) 324 mg DAILY PO 04/10/19 09:00 04/20/19 09:14 Furosemide (Lasix) 20 mg DAILY PO 04/18/19 09:00 04/20/19 09:14 Gabapentin (Neurontin) 600 mg Q8H PO 04/09/19 22:00 04/20/19 14:35 Glucagon (Glucagon) 1 mg ASDIRECTED PRN SC SEE LABEL COMMENTS 04/16/19 14:15 UNV Glucagon (Glucagon) 1 mg ASDIRECTED PRN SC SEE LABEL COMMENTS 04/11/19 10:45 Glucose (Glucose) 16 GM ASDIRECTED PRN PO SEE LABEL COMMENTS 04/16/19 14:15 UNV Glucose (Glucose) 16 GM ASDIRECTED PRN PO SEE LABEL COMMENTS 04/11/19 10:45 Heparin Sodium (Heparin (Flush)) 200 units ASDIRECTED PRN IV SEE LABEL COMMENTS 04/09/19 22:45 04/20/19 05:49 DC 04/19/19 21:54 Heparin Sodium (Heparin (Flush)) 200 units PICC IV 04/10/19 06:00 04/20/19 05:49 DC 04/19/19 06:06 Insulin Detemir (Levemir Insulin) 5 units BID SC 04/09/19 21:00 04/16/19 09:46 DC 04/15/19 20:28 Insulin Human Lispro (HumaLOG INSULIN) SEE PROTOCOL TABLE AC SC 04/16/19 17:30 04/20/19 12:47 Insulin Human Lispro (HumaLOG INSULIN) SEE PROTOCOL TABLE AC SC 04/11/19 12:00 04/16/19 09:47 DC 04/15/19 17:35 Insulin Human Lispro (HumaLOG INSULIN) SEE PROTOCOL TABLE QHS SC 04/11/19 21:00 04/16/19 09:47 DC Levofloxacin (Levaquin) 500 mg DAILY@1800 PO 04/11/19 18:00 04/12/19 18:01 DC 04/12/19 16:52 Lidocaine HCl (Lidocaine 5% Oint) TO Right knee BID TOP 04/11/19 21:00 04/20/19 09:22 Losartan Potassium (Cozaar) 12.5 mg DAILY PO 04/10/19 09:00 04/20/19 09:13 Magnesium Oxide (Mag-Ox) 400 mg BID PO 04/09/19 21:00 04/20/19 09:14 Miscellaneous (Unresolved Clarification Entry) SEE LABEL COMMENTS DAILY XX 04/15/19 09:00 04/16/19 09:51 DC Miscellaneous (Unresolved Clarification Entry) SEE LABEL COMMENTS DAILY XX 04/16/19 09:00 04/16/19 10:23 DC Nystatin (Mycostatin Powder, Nystop) apply to suzy-suprapubic area BID TOP 04/10/19 21:00 04/20/19 09:21 Pantoprazole Sodium (Protonix) 40 mg BID PO 04/09/19 21:00 04/20/19 09:14 Potassium Chloride (Micro-K Extencaps) 20 meq DAILY PO 04/10/19 09:00 04/20/19 09:14 Senna (Senokot) 1 tab QHS PO 04/09/19 21:00 04/19/19 21:53 Sodium Chloride (Saline Lock Flush) 10 ml ASDIRECTED PRN IV SEE LABEL COMMENTS 04/09/19 22:45 04/20/19 05:49 DC 04/19/19 21:54 Sodium Chloride (Saline Lock Flush) 10 ml PICC IV 04/10/19 06:00 04/20/19 05:49 DC 04/19/19 06:06 Sodium Chloride (Sodium Chloride) 0.5 gm DAILY PO 04/15/19 09:00 04/18/19 10:14 DC 04/18/19 07:53 Sodium Chloride (Sodium Chloride) 0.5 gm TID PO 04/12/19 21:00 04/14/19 11:04 DC 04/14/19 08:56 Sodium Chloride (Sodium Chloride) 1 gm BID PO 04/18/19 21:00 04/20/19 09:12 Sodium Chloride (Sodium Chloride) 1 gm TID PO 04/10/19 16:00 04/12/19 18:11 DC 04/12/19 15:19 Solifenacin (Vesicare) 10 mg QHS PO 04/09/19 21:00 04/19/19 21:53 Spironolactone (Aldactone) 12.5 mg DAILY PO 04/10/19 09:00 04/20/19 09:12 Zinc Oxide (Boudreauxs Butt Paste) to sacrum BID TOP 04/10/19 21:00 04/12/19 10:32 DC 04/12/19 08:22 MARY LEON MD Apr 20, 2019 14:49
[2019-04-20] MEDS: SENNA 8.6 MG TAB (SENOKOT) PO SCH (21:00)
[2019-04-20] MEDS: SOLIFENACIN 5 MG TAB PO SCH (21:42)
[2019-04-20 21:45] VITALS: BP 121/62
[2019-04-20] MEDS: ATORVASTATIN 20 MG TAB PO SCH (21:45)
[2019-04-21] MEDS: GABAPENTIN 300 MG CAP PO SCH ×3 (05:52→21:24)
[2019-04-21 06:00] VITALS: BP 113/55
[2019-04-21] MEDS: FENOFIBRATE 145 MG TAB (TRICOR) PO SCH (08:56)
[2019-04-21] MEDS: FERROUS GLUCONATE 324 MG TAB PO SCH (08:57)
[2019-04-21] MEDS: FUROSEMIDE 20 MG TAB PO SCH (08:57)
[2019-04-21] MEDS: PANTOPRAZOLE 40MG TAB (PROTONIX) PO SCH ×2 (08:58→21:23)
[2019-04-21] MEDS: APIXABAN 2.5 MG TAB (ELIQUIS) PO SCH ×2 (08:58→21:24)
[2019-04-21] MEDS: DOCUSATE SODIUM 100 MG CAP PO SCH ×2 (08:58→21:24)
[2019-04-21] MEDS: SPIRONOLACTONE 12.5MG PER 1/2 TABLET PO SCH (08:58)
[2019-04-21] MEDS: LOSARTAN 25 MG TAB PO SCH (08:58)
[2019-04-21] MEDS: SODIUM CHLORIDE 1 GM TAB PO SCH ×2 (08:59→21:23)
[2019-04-21] MEDS: MAGNESIUM OXIDE 400 MG TAB (MAG-OX) PO SCH ×2 (08:59→21:23)
[2019-04-21] MEDS: POTASSIUM CHLORIDE 10 MEQ SR TABLET PO SCH (09:00)
[2019-04-21] MEDS: ACETAMINOPHEN TAB 650MG DOSE (2X325MG) PO SCH ×3 (09:00→21:24)
[2019-04-21] MEDS: BISACODYL 10 MG SUPP PR SCH (09:00)
[2019-04-21] MEDS: HumaLOG INSULIN (NovoLOG) PER UNIT SC SCH ×3 (09:01→17:56)
[2019-04-21] MEDS: NYSTATIN 100,000 UNITS/GM TOPICAL PWD 15 GM TOP SCH ×2 (09:02→21:25)
[2019-04-21] MEDS: POLYVINYL ALCOHOL OPHTH SOLN 15 ML(LIQUITEARS) OU SCH ×4 (09:03→21:24)
[2019-04-21] MEDS: LIDOCAINE 5% OINT 30 GM TOP SCH ×2 (09:04→21:25)
[2019-04-21] MEDS: POLYSPORIN TOPICAL OINTMENT 15GM TOP SCH (09:05)
[2019-04-21 14:00] VITALS: BP 137/63
[2019-04-21 20:15] VITALS: BP 121/88
[2019-04-21] MEDS: SOLIFENACIN 5 MG TAB PO SCH (21:23)
[2019-04-21] MEDS: SENNA 8.6 MG TAB (SENOKOT) PO SCH (21:23)
[2019-04-21] MEDS: ATORVASTATIN 20 MG TAB PO SCH (21:24)
[2019-04-22] MEDS: GABAPENTIN 300 MG CAP PO SCH ×3 (05:24→21:24)
[2019-04-22 06:12] VITALS: BP 107/50
[2019-04-22] MEDS: HumaLOG INSULIN (NovoLOG) PER UNIT SC SCH ×3 (07:30→17:30)
[2019-04-22] MEDS: PANTOPRAZOLE 40MG TAB (PROTONIX) PO SCH ×2 (08:33→21:23)
[2019-04-22] MEDS: APIXABAN 2.5 MG TAB (ELIQUIS) PO SCH ×2 (08:33→21:24)
[2019-04-22] MEDS: DOCUSATE SODIUM 100 MG CAP PO SCH ×2 (08:33→21:23)
[2019-04-22] MEDS: SPIRONOLACTONE 12.5MG PER 1/2 TABLET PO SCH (08:33)
[2019-04-22] MEDS: SODIUM CHLORIDE 1 GM TAB PO SCH ×2 (08:33→21:24)
[2019-04-22] MEDS: FUROSEMIDE 20 MG TAB PO SCH (08:33)
[2019-04-22] MEDS: FENOFIBRATE 145 MG TAB (TRICOR) PO SCH (08:33)
[2019-04-22] MEDS: LOSARTAN 25 MG TAB PO SCH (08:34)
[2019-04-22] MEDS: MAGNESIUM OXIDE 400 MG TAB (MAG-OX) PO SCH ×2 (08:35→21:24)
[2019-04-22] MEDS: FERROUS GLUCONATE 324 MG TAB PO SCH (08:35)
[2019-04-22] MEDS: POTASSIUM CHLORIDE 10 MEQ SR TABLET PO SCH (08:35)
[2019-04-22] MEDS: ACETAMINOPHEN TAB 650MG DOSE (2X325MG) PO SCH ×3 (08:37→21:24)
[2019-04-22] MEDS: POLYVINYL ALCOHOL OPHTH SOLN 15 ML(LIQUITEARS) OU SCH ×4 (08:38→21:24)
[2019-04-22] MEDS: NYSTATIN 100,000 UNITS/GM TOPICAL PWD 15 GM TOP SCH ×2 (08:38→21:25)
[2019-04-22] MEDS: LIDOCAINE 5% OINT 30 GM TOP SCH ×2 (08:40→21:25)
[2019-04-22] MEDS: BISACODYL 10 MG SUPP PR SCH (08:41)
[2019-04-22] MEDS: POLYSPORIN TOPICAL OINTMENT 15GM TOP SCH (08:41)
[2019-04-22 14:00] VITALS: BP 122/58
[2019-04-22 20:00] VITALS: BP 129/59
[2019-04-22] MEDS: ATORVASTATIN 20 MG TAB PO SCH (21:23)
[2019-04-22] MEDS: SOLIFENACIN 5 MG TAB PO SCH (21:23)
[2019-04-22] MEDS: SENNA 8.6 MG TAB (SENOKOT) PO SCH (21:24)
[2019-04-23] MEDS: GABAPENTIN 300 MG CAP PO SCH ×3 (05:39→22:15)
[2019-04-23 06:03] VITALS: BP 120/58
[2019-04-23] MEDS: POTASSIUM CHLORIDE 10 MEQ SR TABLET PO SCH (08:10)
[2019-04-23] MEDS: HumaLOG INSULIN (NovoLOG) PER UNIT SC SCH ×3 (08:10→17:41)
[2019-04-23] MEDS: FUROSEMIDE 20 MG TAB PO SCH (08:11)
[2019-04-23] MEDS: SODIUM CHLORIDE 1 GM TAB PO SCH ×2 (08:11→22:16)
[2019-04-23] MEDS: FENOFIBRATE 145 MG TAB (TRICOR) PO SCH (08:11)
[2019-04-23] MEDS: SPIRONOLACTONE 12.5MG PER 1/2 TABLET PO SCH (08:11)
[2019-04-23] MEDS: APIXABAN 2.5 MG TAB (ELIQUIS) PO SCH ×2 (08:12→22:16)
[2019-04-23] MEDS: FERROUS GLUCONATE 324 MG TAB PO SCH (08:12)
[2019-04-23] MEDS: MAGNESIUM OXIDE 400 MG TAB (MAG-OX) PO SCH ×2 (08:12→22:16)
[2019-04-23] MEDS: LOSARTAN 25 MG TAB PO SCH (08:12)
[2019-04-23] MEDS: PANTOPRAZOLE 40MG TAB (PROTONIX) PO SCH ×2 (08:12→22:15)
[2019-04-23] MEDS: ACETAMINOPHEN TAB 650MG DOSE (2X325MG) PO SCH ×3 (08:13→22:17)
[2019-04-23] MEDS: BISACODYL 10 MG SUPP PR SCH (08:13)
[2019-04-23] MEDS: POLYVINYL ALCOHOL OPHTH SOLN 15 ML(LIQUITEARS) OU SCH ×4 (08:13→22:18)
[2019-04-23] MEDS: LIDOCAINE 5% OINT 30 GM TOP SCH ×2 (08:13→22:18)
[2019-04-23] MEDS: NYSTATIN 100,000 UNITS/GM TOPICAL PWD 15 GM TOP SCH ×2 (08:14→22:18)
[2019-04-23] MEDS: DOCUSATE SODIUM 100 MG CAP PO SCH ×3 (08:14→22:15)
[2019-04-23] MEDS: POLYSPORIN TOPICAL OINTMENT 15GM TOP SCH (08:14)
[2019-04-23 14:00] VITALS: BP 139/65
[2019-04-23 15:48] LABS: BASO % 0.1 % (0.0-1.0); EOS # 0.1 10^3/uL (0.0-0.50); EOS % 1.2 % (0.0-3.0); HEMATOCRIT 28.4 % (42.0-52.0); HEMOGLOBIN 9.1 g/dl (13.5-17.5); LYMPH # 1.6 10^3/uL (1.5-4.5); MEAN CORPUSCULAR HEMOGLOBIN 28.5 pg (27.0-33.0); MONO # 0.6 10^3/uL (0.0-0.8); MONO % 7.6 % (0.0-5.0); NEUTROPHILS % 68.8 % (36.0-66.0); PLATELET COUNT, AUTOMATED 222 10^3/uL (150-450); RED BLOOD COUNT 3.19 10^6/uL (4.30-6.10); WHITE BLOOD COUNT 7.3 10^3/uL (4.0-10.0)
[2019-04-23 16:08] LABS: CREATININE FOR GFR 1.35 MG/DL (0.70-1.30); GLOMERULAR FILTRATION RATE 55.2 (>42); POTASSIUM SERUM 4.5 MEQ/L (3.5-5.1)
--- NOTE | 2019-04-23 17:07 | IPNPDOC ---
PM&R Progress Note DATE OF SERVICE: Apr 23, 2019 Certified Technician Specialist Progress Note Subjective: Patient reporting he feels fine and would like a script for daycare to allow him to add salt to his meals. REVIEW OF SYSTEMS: The following is a completed review of systems and has been reviewed. Review of systems otherwise unremarkable. PAIN: Patient self reports mild right knee pain EYES: No recent vision changes EARS, NOSE, & THROAT: No throat pain, or dysphagia, or rhinorrhea CARDIOVASCULAR: Denies chest pain or palpitations PULMONARY: Denies shortness of breath GASTROINTESTINAL: Denies constipation/diarrhea GENITOURINARY:+ neurogenic bladder MUSCULOSKELETAL: right knee pain NEUROLOGICAL:incomplete paraplegia HEMATOLOGICAL: +anemia SKIN: suprapubic rash PSYCHIATRIC: Unremarkable All other review of systems found to be negative. PHYSICAL EXAMINATION: VITAL SIGNS: Please see below. GENERAL: Pleasant and cooperative. No acute distress. HEENT: PERRL. Extraocular movements intact. Clear conjunctiva CARDIOVASCULAR: Regular rate and rhythm. No murmurs, rubs, or gallops LUNGS: Clear to auscultation bilaterally. No wheezes. No rhonchi ABDOMEN: Soft, nontender, mildly distended Positive bowel sounds. +abdominal incision c/d/i, + suprapubic catheter NEUROLOGICAL: Alert and oriented times three. Cranial nerves II through XII grossly intact. Sensation decreased to light touch mid-trunk and below EXTREMITIES: 5-\5 strength bilateral upper extremities. 3/5 right hip flexors, knee extensors, ankle AF and EHL, 4-/5 LLE resolved right knee swelling, knee, no warmth, mild tenderness +right ankle swelling without erythema mild bilateral ankle edema LLE>RLE left D3 +callous with dime-size blanchable purple hue, no open skin ASSESSMENT:73-year-old M with past medical history of incomplete paraplegia with partial bowel resection who presents status post dehydration with ileus and deconditioning PLAN: 1. Rehab: PT- stretch/strenghten/maintain ROM bilat LE, improve transfers, and walking endurance, requiring assistance for functional transfers OT -stretch/strenghten/maintain ROM bilat UE, teach shoulder protection exercises 2. Neuro: incomplete paraplegia, monitor for worsening function, utilize AFO for foot drop 3. CArdiac: diastolic chronic CHF with Afib, c/u lower dose Eliquis in setting of recent GI bleed and drop in Hgb/Hct, c/u aldactone -hyponatremia resolved -htn- c/u SOO, medicine consulted to assist in management -will hold lasix for elevation in Blueprint Tracer to 1.3, loosen fluid restriction to 1800cc and recheck Blueprint Tracer tomorrow -hld c/u statin and Tricor 4. resp: encourage incentive spirometry, LEEANN- c/u CPAP 5. Hyponatremia- resolved c/u fluid restriction, c/u NaCl supplements, sodium levels normalizing, c/u low dose lasix 6. Heme: anemia due to chronic disease likely and GI loss, will monitor and transfuse if <8 7. endo: DM c/u insulin coverage and adjust prn 8. - neurogenic bladder, c/u suprapubic cath care changed 04/12/19 will need f/u as outpatient 9. GI: neurogenic bowel, c/u bowel regiment, monitor for signs of obstruction 10. Skin: turm q2 in bed, zinc to sacrum, nystatin powder to lower abdomen 11. DVT ppx: TEDs and on Elqiuis 12. MSK: right knee effusion resolved, now with dependent right ankle swelling which also has improved with acewrapping and elevation- -c/u ice, topical lidocaine, tylenol standing for right knee OA 13. Skin: left toe callous with what appears to be bruising, cover with bandage- does not appear to be a pressure ulcer -c/u acewrapping LE 12. Dispo: 04/25/19 to home, progressing towards goals Allergies Coded Allergies: Sulfa (Sulfonamide Antibiotics) (Verified Allergy, Intermediate, hives, 12/20/18) alcohol (Verified Allergy, Intermediate, soap rash, 12/20/18) carisoprodol (Verified Allergy, Intermediate, hives, 12/20/18) gum mastic (Verified Allergy, Intermediate, soap rash, 12/20/18) purell mosture therapy latex (Verified Allergy, Intermediate, rash, 12/20/18) methyl salicylate (Verified Allergy, Intermediate, soap rash, 12/20/18) methylparaben (Verified Allergy, Intermediate, hives, 12/20/18) morphine (Verified Allergy, Intermediate, HIVES RASH AT SITE LIKELY HISTAMINE RELEASE, 12/20/18) storax (Verified Allergy, Intermediate, soap rash, 12/20/18) SOO Inhibitors (Verified Allergy, Unknown, 12/20/18) TAPE (Verified Allergy, Unknown, STERISTRIPS, 02/10/18) hydrochlorothiazide (Verified Allergy, Unknown, unsure of reaction, 9) nitrofurantoin (Verified Adverse Reaction, Mild, diarrhea, 12/20/18) Vital Signs Vital Signs Date Time Temp Pulse Resp B/P (MAP) Pulse Ox O2 Delivery O2 Flow Rate FiO2 04/23/19 14:00 98.8 81 18 139/65 (89) 100 Laboratory Data CBC/BMP Laboratory Tests 04/23/19 15:29 Red Blood Count 3.19 L, Mean Corpuscular Volume 89.0, Mean Corpuscular Hemoglobin 28.5, Mean Corpuscular Hemoglobin Concent 32.0, Red Cell Distribution Width 15.3 H, Neutrophils (%) (Auto) 68.8 H, Lymphocytes (%) (Auto) 22.0 L, Monocytes (%) (Auto) 7.6 H, Eosinophils (%) (Auto) 1.2, Basophils (%) (Auto) 0.1, Neutrophils # (Auto) 5.0, Lymphocytes # (Auto) 1.6, Monocytes # (Auto) 0.6, Eosinophils # (Auto) 0.1, Basophils # (Auto) 0.0, Calcium Level 9.0 Labs 24H Laboratory Tests 2 04/23/19 15:29: Immature Granulocyte % (Auto) 0.3, White Blood Count 7.3, Red Blood Count 3.19L, Hemoglobin 9.1L, Hematocrit 28.4L, Mean Corpuscular Volume 89.0, Mean Corpuscular Hemoglobin 28.5, Mean Corpuscular Hemoglobin Concent 32.0, Red Cell Distribution Width 15.3H, Platelet Count 222, Neutrophils (%) (Auto) 68.8H, Lymphocytes (%) (Auto) 22.0L, Monocytes (%) (Auto) 7.6H, Eosinophils (%) (Auto) 1.2, Basophils (%) (Auto) 0.1, Neutrophils # (Auto) 5.0, Lymphocytes # (Auto) 1.6, Monocytes # (Auto) 0.6, Eosinophils # (Auto) 0.1, Basophils # (Auto) 0.0, Nucleated Red Blood Cells % (auto) 0.0, Anion Gap 4L, Glomerular Filtration Rate 55.2, Blood Urea Nitrogen 23H, Creatinine 1.35H, Sodium Level 137, Potassium Level 4.5, Chloride Level 103, Carbon Dioxide Level 30, Calcium Level 9.0 Current Medications Current Medications Current Medications Medications (Trade) Dose Ordered Sig/Rick Route PRN Reason Start Time Stop Time Status Last Admin Dose Admin Acetaminophen (Tylenol Tab) 650 mg Q6HP PRN PO PAIN / FEVER 04/09/19 18:00 04/11/19 10:43 DC 04/10/19 14:29 Acetaminophen (Tylenol Tab) 650 mg TID PO 04/11/19 09:00 04/23/19 16:42 Apixaban (Eliquis) 2.5 mg BID PO 04/09/19 21:00 04/23/19 08:12 Artificial Tears (Akwa Tears) 2 drop QID OU 04/09/19 21:00 04/23/19 12:33 Atorvastatin Calcium (Lipitor) 40 mg QHS PO 04/09/19 21:00 04/22/19 21:23 Bacitracin/ Polymyxin B Sulfate (Polysporin Top Oint) apply to laceration on abdomen DAILY TOP 04/16/19 09:00 04/23/19 08:14 Bisacodyl (Dulcolax Suppository) 10 mg DAILY MA 04/09/19 19:00 04/20/19 09:15 Bisacodyl (Dulcolax Suppository) 10 mg DAILYPRN PRN MA CONSTIPATION 04/09/19 18:00 Dextrose (Dextrose 50%) 25 ml ASDIRECTED PRN IV SEE LABEL COMMENTS 04/16/19 14:15 UNV Dextrose (Dextrose 50%) 25 ml ASDIRECTED PRN IV SEE LABEL COMMENTS 04/11/19 10:45 Docusate Sodium (Colace) 100 mg BID PO 04/09/19 21:00 04/22/19 21:23 Fenofibrate (Tricor) 145 mg DAILY PO 04/10/19 09:00 04/23/19 08:11 Ferrous Gluconate (Fergon) 324 mg DAILY PO 04/10/19 09:00 04/23/19 08:12 Furosemide (Lasix) 20 mg DAILY PO 04/18/19 09:00 04/23/19 16:33 DC 04/23/19 08:11 Gabapentin (Neurontin) 600 mg Q8H PO 04/09/19 22:00 04/23/19 14:38 Glucagon (Glucagon) 1 mg ASDIRECTED PRN SC SEE LABEL COMMENTS 04/16/19 14:15 UNV Glucagon (Glucagon) 1 mg ASDIRECTED PRN SC SEE LABEL COMMENTS 04/11/19 10:45 Glucose (Glucose) 16 GM ASDIRECTED PRN PO SEE LABEL COMMENTS 04/16/19 14:15 UNV Glucose (Glucose) 16 GM ASDIRECTED PRN PO SEE LABEL COMMENTS 04/11/19 10:45 Heparin Sodium (Heparin (Flush)) 200 units ASDIRECTED PRN IV SEE LABEL COMMENTS 04/09/19 22:45 04/20/19 05:49 DC 04/19/19 21:54 Heparin Sodium (Heparin (Flush)) 200 units PICC IV 04/10/19 06:00 04/20/19 05:49 DC 04/19/19 06:06 Insulin Detemir (Levemir Insulin) 5 units BID SC 04/09/19 21:00 04/16/19 09:46 DC 04/15/19 20:28 Insulin Human Lispro (HumaLOG INSULIN) SEE PROTOCOL TABLE AC SC 04/16/19 17:30 04/23/19 12:32 Insulin Human Lispro (HumaLOG INSULIN) SEE PROTOCOL TABLE AC SC 04/11/19 12:00 04/16/19 09:47 DC 04/15/19 17:35 Insulin Human Lispro (HumaLOG INSULIN) SEE PROTOCOL TABLE QHS MI 04/11/19 21:00 04/16/19 09:47 DC Levofloxacin (Levaquin) 500 mg DAILY@1800 PO 04/11/19 18:00 04/12/19 18:01 DC 04/12/19 16:52 Lidocaine HCl (Lidocaine 5% Oint) TO Right knee BID TOP 04/11/19 21:00 04/23/19 08:13 Losartan Potassium (Cozaar) 12.5 mg DAILY PO 04/10/19 09:00 04/23/19 08:12 Magnesium Oxide (Mag-Ox) 400 mg BID PO 04/09/19 21:00 04/23/19 08:12 Miscellaneous (Unresolved Clarification Entry) SEE LABEL COMMENTS DAILY XX 04/15/19 09:00 04/16/19 09:51 DC Miscellaneous (Unresolved Clarification Entry) SEE LABEL COMMENTS DAILY XX 04/16/19 09:00 04/16/19 10:23 DC Miscellaneous (Unresolved Clarification Entry) SEE LABEL COMMENTS DAILY XX 04/22/19 09:00 04/22/19 13:55 DC Nystatin (Mycostatin Powder, Nystop) apply to suzy-suprapubic area BID TOP 04/10/19 21:00 04/23/19 08:14 Pantoprazole Sodium (Protonix) 40 mg BID PO 04/09/19 21:00 04/23/19 08:12 Potassium Chloride (Micro-K Extencaps) 20 meq DAILY PO 04/10/19 09:00 04/23/19 08:10 Senna (Senokot) 1 tab QHS PO 04/09/19 21:00 04/22/19 21:24 Sodium Chloride (Saline Lock Flush) 10 ml ASDIRECTED PRN IV SEE LABEL COMMENTS 04/09/19 22:45 04/20/19 05:49 DC 04/19/19 21:54 Sodium Chloride (Saline Lock Flush) 10 ml PICC IV 04/10/19 06:00 04/20/19 05:49 DC 04/19/19 06:06 Sodium Chloride (Sodium Chloride) 0.5 gm DAILY PO 04/15/19 09:00 04/18/19 10:14 DC 04/18/19 07:53 Sodium Chloride (Sodium Chloride) 0.5 gm TID PO 04/12/19 21:00 04/14/19 11:04 DC 04/14/19 08:56 Sodium Chloride (Sodium Chloride) 1 gm BID PO 04/18/19 21:00 04/23/19 08:11 Sodium Chloride (Sodium Chloride) 1 gm TID PO 04/10/19 16:00 04/12/19 18:11 DC 04/12/19 15:19 Solifenacin (Vesicare) 10 mg QHS PO 04/09/19 21:00 04/22/19 21:23 Spironolactone (Aldactone) 12.5 mg DAILY PO 04/10/19 09:00 04/23/19 08:11 Zinc Oxide (Boudreauxs Butt Paste) to sacrum BID TOP 04/10/19 21:00 8/8/19 10:32 DC 04/12/19 08:22 MARY LEON MD Apr 23, 2019 17:07
[2019-04-23 19:57] VITALS: BP 122/62
[2019-04-23] MEDS: SENNA 8.6 MG TAB (SENOKOT) PO SCH ×2 (21:00→22:16)
[2019-04-23] MEDS: SOLIFENACIN 5 MG TAB PO SCH (22:16)
[2019-04-23] MEDS: ATORVASTATIN 20 MG TAB PO SCH (22:17)
[2019-04-24] MEDS: GABAPENTIN 300 MG CAP PO SCH ×3 (05:24→22:00)
[2019-04-24 05:45] VITALS: BP 117/58
[2019-04-24] MEDS: HumaLOG INSULIN (NovoLOG) PER UNIT SC SCH ×3 (07:30→17:03)
[2019-04-24] MEDS: APIXABAN 2.5 MG TAB (ELIQUIS) PO SCH ×2 (08:56→22:00)
[2019-04-24] MEDS: SPIRONOLACTONE 12.5MG PER 1/2 TABLET PO SCH (08:56)
[2019-04-24] MEDS: LOSARTAN 25 MG TAB PO SCH (08:56)
[2019-04-24] MEDS: FERROUS GLUCONATE 324 MG TAB PO SCH (08:56)
[2019-04-24] MEDS: SODIUM CHLORIDE 1 GM TAB PO SCH ×2 (08:56→22:01)
[2019-04-24] MEDS: PANTOPRAZOLE 40MG TAB (PROTONIX) PO SCH ×2 (08:56→22:00)
[2019-04-24] MEDS: POTASSIUM CHLORIDE 10 MEQ SR TABLET PO SCH (08:56)
[2019-04-24] MEDS: FENOFIBRATE 145 MG TAB (TRICOR) PO SCH (08:57)
[2019-04-24] MEDS: ACETAMINOPHEN TAB 650MG DOSE (2X325MG) PO SCH ×3 (08:57→22:02)
[2019-04-24] MEDS: MAGNESIUM OXIDE 400 MG TAB (MAG-OX) PO SCH ×2 (08:57→22:00)
[2019-04-24] MEDS: BISACODYL 10 MG SUPP PR SCH (08:57)
[2019-04-24] MEDS: NYSTATIN 100,000 UNITS/GM TOPICAL PWD 15 GM TOP SCH ×2 (08:58→22:04)
[2019-04-24] MEDS: LIDOCAINE 5% OINT 30 GM TOP SCH ×2 (08:58→22:03)
[2019-04-24] MEDS: POLYVINYL ALCOHOL OPHTH SOLN 15 ML(LIQUITEARS) OU SCH ×4 (08:58→22:02)
[2019-04-24] MEDS: POLYSPORIN TOPICAL OINTMENT 15GM TOP SCH (08:59)
[2019-04-24] MEDS: DOCUSATE SODIUM 100 MG CAP PO SCH ×2 (09:00→22:00)
[2019-04-24 14:00] VITALS: BP 121/61
--- NOTE | 2019-04-24 17:01 | IPNPDOC ---
PM&R Progress Note DATE OF SERVICE: Apr 24, 2019 Bat Person Progress Note Subjective: Patient reporting he is eager to go home tomorrow and would like his soo-wraps removed. He is interested in getting a script for his diet so that he can add salt to his meals in daycare. REVIEW OF SYSTEMS: The following is a completed review of systems and has been reviewed. Review of systems otherwise unremarkable. PAIN: Patient self reports mild right knee pain EYES: No recent vision changes EARS, NOSE, & THROAT: No throat pain, or dysphagia, or rhinorrhea CARDIOVASCULAR: Denies chest pain or palpitations PULMONARY: Denies shortness of breath GASTROINTESTINAL: Denies constipation/diarrhea GENITOURINARY:+ neurogenic bladder MUSCULOSKELETAL: right knee pain NEUROLOGICAL:incomplete paraplegia HEMATOLOGICAL: +anemia SKIN: suprapubic rash PSYCHIATRIC: Unremarkable All other review of systems found to be negative. PHYSICAL EXAMINATION: VITAL SIGNS: Please see below. GENERAL: Pleasant and cooperative. No acute distress. HEENT: PERRL. Extraocular movements intact. Clear conjunctiva CARDIOVASCULAR: Regular rate and rhythm. No murmurs, rubs, or gallops LUNGS: Clear to auscultation bilaterally. No wheezes. No rhonchi ABDOMEN: Soft, nontender, mildly distended Positive bowel sounds. +abdominal incision c/d/i, + suprapubic catheter NEUROLOGICAL: Alert and oriented times three. Cranial nerves II through XII grossly intact. Sensation decreased to light touch mid-trunk and below EXTREMITIES: 5-\5 strength bilateral upper extremities. 3/5 right hip flexors, knee extensors, ankle AF and EHL, 4-/5 LLE resolved right knee swelling, knee, no warmth, mild tenderness +right ankle swelling without erythema mild bilateral ankle edema LLE>RLE left D3 +callous with dime-size blanchable purple hue, no open skin ASSESSMENT:73-year-old M with past medical history of incomplete paraplegia with partial bowel resection who presents status post dehydration with ileus and deconditioning PLAN: 1. Rehab: PT- stretch/strenghten/maintain ROM bilat LE, improve transfers, and walking endurance, requiring assistance for functional transfers OT -stretch/strenghten/maintain ROM bilat UE, teach shoulder protection exercises 2. Neuro: incomplete paraplegia, monitor for worsening function, utilize AFO for foot drop, patient being followed by street inspector and will be fitted for his brace on discharge 3. CArdiac: diastolic chronic CHF with Afib, c/u lower dose Eliquis in setting of recent GI bleed and drop in Hgb/Hct, c/u aldactone -hyponatremia resolved -htn- c/u SOO, medicine consulted to assist in management -will hold lasix for elevation in Wildlife Technician to 1.3, loosen fluid restriction to 1800cc and recheck Wildlife Technician tomorrow -hld c/u statin and Tricor 4. resp: encourage incentive spirometry, LEEANN- c/u CPAP 5. Hyponatremia- resolved c/u fluid restriction, c/u NaCl supplements, sodium levels normalizing, c/u low dose lasix 6. Heme: anemia due to chronic disease likely and GI loss, will monitor and tra nsfuse if <8 7. endo: DM c/u insulin coverage and adjust prn 8. - neurogenic bladder, c/u suprapubic cath care changed 04/12/19 will need f/u as outpatient 9. GI: neurogenic bowel, c/u bowel regiment, monitor for signs of obstruction 10. Skin: turm q2 in bed, zinc to sacrum, nystatin powder to lower abdomen 11. DVT ppx: TEDs and on Elqiuis 12. MSK: right knee effusion resolved, now with dependent right ankle swelling which also has improved with acewrapping and elevation- -c/u ice, topical lidocaine, tylenol standing for right knee OA 13. Skin: left toe callous with what appears to be bruising, cover with bandage- does not appear to be a pressure ulcer -c/u acewrapping LE 14. ID: MRSA screen + 12. Dispo: 04/25/19 to home, progressing towards goals Allergies Coded Allergies: Sulfa (Sulfonamide Antibiotics) (Verified Allergy, Intermediate, hives, 12/20/18) alcohol (Verified Allergy, Intermediate, soap rash, 12/20/18) carisoprodol (Verified Allergy, Intermediate, hives, 12/20/18) gum mastic (Verified Allergy, Intermediate, soap rash, 12/20/18) purell mosture therapy latex (Verified Allergy, Intermediate, rash, 12/20/18) methyl salicylate (Verified Allergy, Intermediate, soap rash, 12/20/18) methylparaben (Verified Allergy, Intermediate, hives, 12/20/18) morphine (Verified Allergy, Intermediate, HIVES RASH AT SITE LIKELY HISTAMINE RELEASE, 12/20/18) storax (Verified Allergy, Intermediate, soap rash, 12/20/18) SOO Inhibitors (Verified Allergy, Unknown, 12/20/18) TAPE (Verified Allergy, Unknown, STERISTRIPS, 02/10/18) hydrochlorothiazide (Verified Allergy, Unknown, unsure of reaction, 12/20/18) nitrofurantoin (Verified Adverse Reaction, Mild, diarrhea, 12/20/18) Vital Signs Vital Signs Date Time Temp Pulse Resp B/P (MAP) Pulse Ox O2 Delivery O2 Flow Rate FiO2 04/24/19 14:00 96.8 89 18 121/61 (81) 100 Laboratory Data Labs 24H Laboratory Tests 2 04/24/19 09:48: Methicillin-Resist S.aureus DNA PCR POSITIVEH Microbiology Microbiology 04/23/19 MRSA Screen, Received Pending Current Medications Current Medications Current Medications Medications (Trade) Dose Ordered Sig/Rick Route PRN Reason Start Time Stop Time Status Last Admin Dose Admin Acetaminophen (Tylenol Tab) 650 mg Q6HP PRN PO PAIN / FEVER 04/09/19 18:00 04/11/19 10:43 DC 04/10/19 14:29 Acetaminophen (Tylenol Tab) 650 mg TID PO 04/11/19 09:00 04/24/19 08:57 Apixaban (Eliquis) 2.5 mg BID PO 04/09/19 21:00 04/24/19 08:56 Artificial Tears (Akwa Tears) 2 drop QID OU 04/09/19 21:00 04/24/19 13:56 Atorvastatin Calcium (Lipitor) 40 mg QHS PO 04/09/19 21:00 04/23/19 22:17 Bacitracin/ Polymyxin B Sulfate (Polysporin Top Oint) apply to laceration on abdomen DAILY TOP 04/16/19 09:00 04/24/19 08:59 Bisacodyl (Dulcolax Suppository) 10 mg DAILY GA 04/09/19 19:00 04/20/19 09:15 Bisacodyl (Dulcolax Suppository) 10 mg DAILYPRN PRN GA CONSTIPATION 04/09/19 18:00 Dextrose (Dextrose 50%) 25 ml ASDIRECTED PRN IV SEE LABEL COMMENTS 04/16/19 14:15 UNV Dextrose (Dextrose 50%) 25 ml ASDIRECTED PRN IV SEE LABEL COMMENTS 04/11/19 10:45 Docusate Sodium (Colace) 100 mg BID PO 04/09/19 21:00 04/22/19 21:23 Fenofibrate (Tricor) 145 mg DAILY PO 04/10/19 09:00 04/24/19 08:57 Ferrous Gluconate (Fergon) 324 mg DAILY PO 04/10/19 09:00 04/24/19 08:56 Furosemide (Lasix) 20 mg DAILY PO 04/18/19 09:00 04/23/19 16:33 DC 04/23/19 08:11 Gabapentin (Neurontin) 600 mg Q8H PO 04/09/19 22:00 04/24/19 14:55 Glucagon (Glucagon) 1 mg ASDIRECTED PRN SC SEE LABEL COMMENTS 04/16/19 14:15 UNV Glucagon (Glucagon) 1 mg ASDIRECTED PRN SC SEE LABEL COMMENTS 04/11/19 10:45 Glucose (Glucose) 16 GM ASDIRECTED PRN PO SEE LABEL COMMENTS 04/16/19 14:15 UNV Glucose (Glucose) 16 GM ASDIRECTED PRN PO SEE LABEL COMMENTS 04/11/19 10:45 Heparin Sodium (Heparin (Flush)) 200 units ASDIRECTED PRN IV SEE LABEL COMMENTS 04/09/19 22:45 04/20/19 05:49 DC 04/19/19 21:54 Heparin Sodium (Heparin (Flush)) 200 units PICC IV 04/10/19 06:00 04/20/19 05:49 DC 04/19/19 06:06 Insulin Detemir (Levemir Insulin) 5 units BID SC 04/09/19 21:00 04/16/19 09:46 DC 04/15/19 20:28 Insulin Human Lispro (HumaLOG INSULIN) SEE PROTOCOL TABLE AC SC 04/16/19 17:30 04/24/19 12:38 Insulin Human Lispro (HumaLOG INSULIN) SEE PROTOCOL TABLE AC SC 04/11/19 12:00 04/16/19 09:47 DC 04/15/19 17:35 Insulin Human Lispro (HumaLOG INSULIN) SEE PROTOCOL TABLE QHS SC 04/11/19 21:00 04/16/19 09:47 DC Levofloxacin (Levaquin) 500 mg DAILY@1800 PO 04/11/19 18:00 04/12/19 18:01 DC 04/12/19 16:52 Lidocaine HCl (Lidocaine 5% Oint) TO Right knee BID TOP 04/11/19 21:00 04/24/19 08:58 Losartan Potassium (Cozaar) 12.5 mg DAILY PO 04/10/19 09:00 04/24/19 08:56 Magnesium Oxide (Mag-Ox) 400 mg BID PO 04/09/19 21:00 04/24/19 08:57 Miscellaneous (Unresolved Clarification Entry) SEE LABEL COMMENTS DAILY XX 04/15/19 09:00 04/16/19 09:51 DC Miscellaneous (Unresolved Clarification Entry) SEE LABEL COMMENTS DAILY XX 04/16/19 09:00 04/16/19 10:23 DC Miscellaneous (Unresolved Clarification Entry) SEE LABEL COMMENTS DAILY XX 04/22/19 09:00 04/22/19 13:55 DC Nystatin (Mycostatin Powder, Nystop) apply to suzy-suprapubic area BID TOP 04/10/19 21:00 04/24/19 08:58 Pantoprazole Sodium (Protonix) 40 mg BID PO 04/09/19 21:00 04/24/19 08:56 Potassium Chloride (Micro-K Extencaps) 20 meq DAILY PO 04/10/19 09:00 04/24/19 08:56 Senna (Senokot) 1 tab QHS PO 04/09/19 21:00 04/22/19 21:24 Sodium Chloride (Saline Lock Flush) 10 ml ASDIRECTED PRN IV SEE LABEL COMMENTS 04/09/19 22:45 04/20/19 05:49 DC 04/19/19 21:54 Sodium Chloride (Saline Lock Flush) 10 ml PICC IV 04/10/19 06:00 04/20/19 05:49 DC 04/19/19 06:06 Sodium Chloride (Sodium Chloride) 0.5 gm DAILY PO 04/15/19 09:00 04/18/19 10:14 DC 04/18/19 07:53 Sodium Chloride (Sodium Chloride) 0.5 gm TID PO 04/12/19 21:00 04/14/19 11:04 DC 04/14/19 08:56 Sodium Chloride (Sodium Chloride) 1 gm BID PO 04/18/19 21:00 04/24/19 08:56 Sodium Chloride (Sodium Chloride) 1 gm TID PO 04/10/19 16:00 04/12/19 18:11 DC 04/12/19 15:19 Solifenacin (Vesicare) 10 mg QHS PO 04/09/19 21:00 04/23/19 22:16 Spironolactone (Aldactone) 12.5 mg DAILY PO 04/10/19 09:00 04/24/19 08:56 Zinc Oxide (Boudreauxs Butt Paste) to sacrum BID TOP 04/10/19 21:00 04/12/19 10:32 DC 04/12/19 08:22 MARY LEON MD Apr 24, 2019 17:01
[2019-04-24 17:43] LABS: BLOOD UREA NITROGEN 21 MG/DL (7-18); CALCIUM LEVEL 9.3 MG/DL (8.8-10.2); CARBON DIOXIDE LEVEL 29 MEQ/L (21-32); CHLORIDE LEVEL 102 MEQ/L (98-107); CREATININE FOR GFR 1.23 MG/DL (0.70-1.30); GLOMERULAR FILTRATION RATE > 60.0 (>42); GLUCOSE, FASTING 214 MG/DL (70-100); POTASSIUM SERUM 4.2 MEQ/L (3.5-5.1); SODIUM LEVEL 134 MEQ/L (136-145)
[2019-04-24 20:00] VITALS: BP 118/56
[2019-04-24] MEDS: SENNA 8.6 MG TAB (SENOKOT) PO SCH (22:00)
[2019-04-24] MEDS: ATORVASTATIN 20 MG TAB PO SCH (22:01)
[2019-04-24] MEDS: SOLIFENACIN 5 MG TAB PO SCH (22:06)
[2019-04-25] MEDS: ACETAMINOPHEN TAB 650MG DOSE (2X325MG) PO SCH (00:38)
[2019-04-25] MEDS: GABAPENTIN 300 MG CAP PO SCH (05:57)
[2019-04-25 06:00] VITALS: BP 122/56
[2019-04-25] MEDS ORDERED: SODI1TAB6 PO (08:43)
[2019-04-25] MEDS ORDERED: MAG400TA PO (08:43)
[2019-04-25] MEDS ORDERED: PANT40TA3 PO (08:43)
[2019-04-25] MEDS ORDERED: GABA-843 PO (08:43)
[2019-04-25] MEDS ORDERED: COZA1TAB PO (08:43)
[2019-04-25] MEDS ORDERED: ATOR1TAB21 PO (08:43)
[2019-04-25] MEDS ORDERED: ELIQ2.5T PO (08:43)
[2019-04-25] MEDS ORDERED: SOLI5TAB PO (08:43)
[2019-04-25] MEDS ORDERED: FENO145T13 PO (08:43)
[2019-04-25] MEDS ORDERED: KLOR10TA76 PO (08:43)
[2019-04-25] MEDS ORDERED: ALDA25TA2 PO (08:43)
[2019-04-25] MEDS: MAGNESIUM OXIDE 400 MG TAB (MAG-OX) PO SCH (08:46)
[2019-04-25] MEDS: POTASSIUM CHLORIDE 10 MEQ SR TABLET PO SCH (08:47)
[2019-04-25] MEDS: SPIRONOLACTONE 12.5MG PER 1/2 TABLET PO SCH (08:47)
[2019-04-25] MEDS: APIXABAN 2.5 MG TAB (ELIQUIS) PO SCH (08:47)
[2019-04-25] MEDS: PANTOPRAZOLE 40MG TAB (PROTONIX) PO SCH (08:47)
[2019-04-25] MEDS: FENOFIBRATE 145 MG TAB (TRICOR) PO SCH (08:48)
[2019-04-25] MEDS: FERROUS GLUCONATE 324 MG TAB PO SCH (08:48)
[2019-04-25 08:49] VITALS: BP 125/58
[2019-04-25] MEDS: DOCUSATE SODIUM 100 MG CAP PO SCH (08:49)
[2019-04-25] MEDS: LOSARTAN 25 MG TAB PO SCH (08:49)
[2019-04-25] MEDS: POLYVINYL ALCOHOL OPHTH SOLN 15 ML(LIQUITEARS) OU SCH (08:49)
[2019-04-25] MEDS: POLYSPORIN TOPICAL OINTMENT 15GM TOP SCH (08:50)
[2019-04-25] MEDS: NYSTATIN 100,000 UNITS/GM TOPICAL PWD 15 GM TOP SCH (08:50)
[2019-04-25] MEDS: LIDOCAINE 5% OINT 30 GM TOP SCH (08:50)
[2019-04-25] MEDS ORDERED: SODIUM CHLORIDE 1 GM TAB PO SCH (09:00)
[2019-04-25] MEDS: BISACODYL 10 MG SUPP PR SCH (09:00)
[2019-04-25] MEDS: HumaLOG INSULIN (NovoLOG) PER UNIT SC SCH ×2 (09:04→12:17)
--- NOTE | 2019-04-26 16:48 | PMRDS ---
DATE OF ADMISSION: 04/09/2019 DATE OF DISCHARGE: 04/25/2019 CHIEF COMPLAINT/DISCHARGE DIAGNOSIS: Incomplete paraplegia with deconditioning. 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 difficile with small bowel obstruction, discharged home 03/30/2019 and presented back to [facility] Emergency Department (ED) on 04/02/2019 complaining of vomiting and weakness. He was found to be dehydrated and received IV fluids. Chest x-ray showed "lower lobe infiltrate may be slightly improved when compared to prior examination." He had abdominal distension with tenderness for which a CT showed "diffusely dilated, fluid-filled small bowel along with significant fecal stasis throughout the colon similar to prior examination, differential diagnosis includes partial bowel obstruction as well as ileus." In spite of imaging findings, he was able to pass flatus. Surgery evaluated him and put him on Reglan to encourage gut motility in addition to MiraLAX and magnesium citrate. He also complained of right knee pain for which x-rays were negative for fracture but did show degenerative changes with effusion. CT right foot was negative for osteomyelitis. He was also evaluated for cardiology for his atrial fibrillation and chronic diastolic heart failure and decreased his Eliquis dosing for blood and stool and drop in hemoglobin and hematocrit that required blood transfusions. He had significant hyponatremia, was put on a fluid restriction and protein added to his diet for suspected low oncotic pressure. He later was evaluated by therapy and found to be below his prior level of function requiring more assistance for mobility and activity of daily living (ADL) management and deemed medically appropriate for discharge to acute rehabilitation unit (ARU) on 04/09/2019. PAST MEDICAL HISTORY: As per history of present illness (HPI). HOSPITAL COURSE: The patient was admitted and enrolled in a comprehensive physical therapy (PT), occupational therapy (OT) program. He received 24-hour nursing supervision and weekly team meetings were held to discuss his progress. The patient was placed on a strict fluid restriction which was gradually loosened while his sodium levels gradually improved. He was also maintained on sodium chloride salt tablets and started back on Lasix which was ultimately discontinued when his creatinine began to rise. His anemia due to chronic disease and known gastrointestinal (GI) loss was stable during his hospital course, never dipping below 8. His suprapubic catheter was changed on 04/12/2019 and the patient was instructed to followup outpatient with Dr. Hickey. His right knee effusion resolved. However, he did have dependent right ankle swelling which improved with SOO wrapping and elevation. Overall, the patient did quite well. He made gains in therapy and was deemed medically and functionally stable to return home with help from his family. DISCHARGE MEDICATIONS: As per discharge instructions. FUNCTIONAL HISTORY ON DISCHARGE: The patient was standby assist for functional transfers, able to ambulate 77 feet standby assist with a rolling walker and supervision/touch assist for bed mobility. In occupational therapy, he was contact guard for shower/tub transfers, standby assist for other functional transfers, minimal assist for bathing, standby assist for upper body dressing, maximum assist for lower body dressing and for toileting. Thank you for this referral.
== END 2019-04-25 12:54 | disposition home health service (06) | DRG 52 ==
LOC: M PM&R 16:20
PROVIDERS: ADMIT Physical Medicine & Rehabilitation; ATTEND Physical Medicine & Rehabilitation
DX: G82.22 Paraplegia, incomplete (principal); K59.2 Neurogenic bowel, not elsewhere classified; E87.1 Hypo-osmolality and hyponatremia; I50.32 Chronic diastolic (congestive) heart failure; I48.2 Chronic atrial fibrillation; N31.9 Neuromuscular dysfunction of bladder, unspecified; M45.9 Ankylosing spondylitis of unspecified sites in spine; E78.5 Hyperlipidemia, unspecified; E11.9 Type 2 diabetes mellitus without complications; G47.33 Obstructive sleep apnea (adult) (pediatric); I11.0 Hypertensive heart disease with heart failure; D50.0 Iron deficiency anemia secondary to blood loss (chronic); L84 Corns and callosities; M25.461 Effusion, right knee; M17.11 Unilateral primary osteoarthritis, right knee; M21.379 Foot drop, unspecified foot; D63.8 Anemia in other chronic diseases classified elsewhere; R21 Rash and other nonspecific skin eruption; Z90.49 Acquired absence of other specified parts of digestive tract; Z96.651 Presence of right artificial knee joint; Z96.641 Presence of right artificial hip joint; Z95.0 Presence of cardiac pacemaker; Z85.828 Personal history of other malignant neoplasm of skin; Z79.01 Long term (current) use of anticoagulants; Z79.4 Long term (current) use of insulin; Z79.899 Other long term (current) drug therapy; Z88.2 Allergy status to sulfonamides; Z88.8 Allergy status to other drugs, medicaments and biological substances; Z91.048 Other nonmedicinal substance allergy status; Z95.828 Presence of other vascular implants and grafts

== ENCOUNTER 2019-04-27 11:26 | Inpatient (IN) | payer MEDICARE, MEDICAID ==
[~2019-04-27] VITALS: Ht 167.6 cm; Wt 87.3 kg
[~2019-04-27 11:26] MED LIST changes: +ALDA25TA2 PO; +ATOR1TAB21 PO; +COZA1TAB PO; +ELIQ2.5T PO; -FENO145T13 PO; +FENO145T7 PO; +GABA-843 PO; +KLOR10TA76 PO; +SODI1TAB6 PO; +SOLI5TAB PO
[2019-04-27 12:32] LABS: BASO % 0.2 % (0.0-1.0); EOS # 0.2 10^3/uL (0.0-0.50); EOS % 1.8 % (0.0-3.0); HEMATOCRIT 31.3 % (42.0-52.0); HEMOGLOBIN 10.2 g/dl (13.5-17.5); LYMPH # 1.8 10^3/uL (1.5-4.5); LYMPH % 20.3 % (24.0-44.0); MEAN CORPUSCULAR HEMOGLOBIN 28.7 pg (27.0-33.0); MEAN CORPUSCULAR HGB CONC 32.6 g/dl (32.0-36.5); MEAN CORPUSCULAR VOLUME 88.2 fl (80.0-96.0); MONO # 0.7 10^3/uL (0.0-0.8); MONO % 8.4 % (0.0-5.0); PLATELET COUNT, AUTOMATED 258 10^3/uL (150-450); RED BLOOD COUNT 3.55 10^6/uL (4.30-6.10); WHITE BLOOD COUNT 8.7 10^3/uL (4.0-10.0)
--- NOTE | 2019-04-27 12:34 | REP ---
CT BRAIN WITHOUT IV CONTRAST: CT brain performed without IV contrast. There is mild atrophy. There is no midline shift or mass effect. Santa-white differentiation is well maintained. There is no acute intracranial hemorrhage or extra-axial fluid collection. Bone window examination is unremarkable. IMPRESSION: Mild atrophy with no acute intracranial hemorrhage or other acute intracranial finding. Electronically Signed by John Santa MD 04/29/2019 10:50 P
--- NOTE | 2019-04-27 12:44 | REP ---
Portable chest, 12:26 p.m., single AP view with the patient sitting: Comparison is 04/02/2020 and . The lung borrego are clear. The cardiac size is normal. The carlie, mediastinum, and skeletal structures are unremarkable. There is a pacemaker entering from left, unchanged. Impression: Negative portable chest. Electronically Signed by John Lin MD 04/27/2019 12:36 P
[2019-04-27 12:45] LABS: APPEARANCE, URINE CLEAR (CLEAR); BACTERIA, URINE AUTO 1+ (NEGATIVE); BILIRUBIN, URINE AUTO NEGATIVE (NEGATIVE); BLOOD, URINE BLOOD 2+ (NEGATIVE); COLOR, URINE YELLOW (YELLOW); GLUCOSE, URINE (UA) AUTO NEGATIVE (NEGATIVE); KETONE, URINE AUTO NEGATIVE (NEGATIVE); LEUKOCYTE ESTERASE, URINE AUTO 3+ (NEGATIVE); NITRITE, URINE AUTO NEGATIVE (NEGATIVE); PROTEIN, URINE AUTO NEGATIVE (NEGATIVE); RBC, URINE AUTO 151 /HPF (0-3); SPECIFIC GRAVITY URINE AUTO 1.008 (1.002-1.035); SQUAMOUS EPITHELIAL CELL UR AU 0 /HPF (0-6); UROBILINOGEN, URINE AUTO 0.2 mg/dL (0.0-2.0); WBC, URINE AUTO 31 /HPF (0-3)
[2019-04-27 12:48] LABS: INR 1.56; PARTIAL THROMBOPLASTIN TIME 40.3 SECONDS (25.0-38.4); PROTHROMBIN TIME 18.4 SECONDS (11.8-14.0)
[2019-04-27 13:09] LABS: ALBUMIN 2.4 GM/DL (3.2-5.2); ALT/SGPT 16 U/L (12-78); BILIRUBIN,DIRECT 0.2 MG/DL (0.0-0.2); BILIRUBIN,TOTAL 0.5 MG/DL (0.2-1.0); BLOOD UREA NITROGEN 19 MG/DL (7-18); CALCIUM LEVEL 8.8 MG/DL (8.8-10.2); CARBON DIOXIDE LEVEL 27 MEQ/L (21-32); CHLORIDE LEVEL 100 MEQ/L (98-107); CREATININE FOR GFR 1.19 MG/DL (0.70-1.30); GLOMERULAR FILTRATION RATE > 60.0 (>42); GLUCOSE, FASTING 223 MG/DL (70-100); POTASSIUM SERUM 4.7 MEQ/L (3.5-5.1); SODIUM LEVEL 135 MEQ/L (136-145)
--- NOTE | 2019-04-27 13:26 | REP ---
Right lower extremity Duplex Doppler venous ultrasound: Real time compression and duplex Doppler interrogation of the right lower extremity deep venous system is performed. The right common femoral, superficial femoral and popliteal veins are fully compressible with transducer pressure and demonstrate normal spontaneous and phasic flow, without evidence of deep venous thrombosis. Impression: No evidence of deep venous thrombosis of the right lower extremity femoral popliteal venous system. Electronically Signed by John Santa MD 04/27/2019 01:18 P
[2019-04-27 13:58] LABS: C REACTIVE PROTEIN QUANTITATIV 1.42 MG/DL (0.00-0.30)
--- NOTE | 2019-04-27 15:02 | REP ---
RIGHT ANKLE, FOUR VIEWS: Four views right ankle performed. There is no acute fracture or dislocation. There is moderate posterior and inferior calcaneal spurring. Mild dorsal navicular spurring. The ankle mortise is anatomic. There is moderate lateral soft tissue swelling. IMPRESSION: Degenerative changes. Lateral soft tissue swelling. No fracture or dislocation. Electronically Signed by John Santa MD 04/29/2019 10:56 P
[2019-04-27] MEDS ORDERED: ACETAMINOPHEN TAB 650MG DOSE (2X325MG) PO ONE (15:30)
[2019-04-27] MEDS ORDERED: SM LTAB5 PO (16:03)
[2019-04-27] MEDS ORDERED: PANT40TA3 PO (16:03)
[2019-04-27] MEDS ORDERED: ELIQ2.5T PO (16:03)
[2019-04-27] MEDS ORDERED: LOSA25TA14 PO (16:03)
[2019-04-27] MEDS ORDERED: SODI1TAB6 PO (16:03)
[2019-04-27] MEDS ORDERED: POTA10TA17 PO (16:03)
[2019-04-27] MEDS ORDERED: VITA50005 PO (16:03)
[2019-04-27] MEDS ORDERED: DOCU100C16 PO (16:03)
[2019-04-27] MEDS ORDERED: GABA-843 PO (16:03)
[2019-04-27] MEDS ORDERED: LASI20TA3 PO (16:05)
[2019-04-27] MEDS ORDERED: BACL1TAB9 PO (16:05)
[2019-04-27] MEDS ORDERED: ACET650T15 PO (16:07)
[2019-04-27] MEDS ORDERED: LORA10TA3 PO (16:14)
[2019-04-27] MEDS ORDERED: SOLI5TAB PO (16:14)
[2019-04-27] MEDS ORDERED: CLOTRIMAZOLE 1% TOPICAL CREAM 30GM TOP PRN (16:45)
[2019-04-27] MEDS ORDERED: GLUCAGON FOR INJ 1 MG VIAL (J1610) SC PRN (16:45)
[2019-04-27] MEDS ORDERED: DOCUSATE SODIUM 100 MG CAP PO PRN (16:45)
[2019-04-27] MEDS ORDERED: BACLOFEN 10 MG TAB PO PRN (16:45)
[2019-04-27] MEDS ORDERED: NYSTATIN 100,000 UNITS/GM TOPICAL PWD 15 GM TOP PRN (16:45)
[2019-04-27] MEDS ORDERED: GLUCOSE 4 GM CHEW TABLET PO PRN (16:45)
[2019-04-27] MEDS ORDERED: BISACODYL 10 MG SUPP PR PRN (16:45)
[2019-04-27] MEDS ORDERED: DEXTROSE 50% 50 ML SYRINGE IV PRN (16:45)
[2019-04-27] MEDS: HumaLOG INSULIN (NovoLOG) PER UNIT SC SCH ×2 (17:30→21:00)
--- NOTE | 2019-04-27 17:31 | HPE ---
DATE OF ADMISSION: 04/27/2019 PREOPERATIVE DIAGNOSIS: Altered mental status, probably from hypoglycemia. HISTORY: Calos Camacho was discharged from PMR unit. He was doing very well on discharge, ambulating further than he has in probably about a year. Certainly ready for a discharge. He is ambulating 90 feet and not having any limitations as on his self care. Last night he had a hypoglycemic episode and today he is confused and did not know what to do with the insulin pens and he was putting his glucose monitor against his teeth and things such as that. He is being admitted for further evaluation. PAST MEDICAL HISTORY: Well summarized for frequent admission including neurogenic bladder with indwelling suprapubic catheter. Chronic atrial fib on chronic anticoagulant therapy. 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 SURGICAL HISTORY: Left hemicolectomy, right knee replacement, right total hip, multiple hernia repairs, bladder biopsy suprapubic catheter 2013, thoracic decompressive laminectomy and a pacemaker. SOCIAL HISTORY: Lives with his family. FAMILY HISTORY: Noncontributory. REVIEW OF SYSTEMS: No cough, wheeze, fevers, chills, night sweats. PHYSICAL EXAM: Vital signs per flow sheet. He is awake and conversant. He recognizes me and knows where he is. We did speak to him slow and he is a little slow to answer compared to his baseline, definitely not at his baseline. Blood pressure 148/85, 99.1 degrees. HEENT: Shows poor dentition, otherwise unremarkable. LUNGS: Decreased breath sounds. HEART: Regular rate. ABDOMEN: Soft. Superior pubic catheter present and nontender. EXTREMITIES: 1+ edema of the right leg, trace left leg. Moves arms and legs with equal strength. LABS: CBC unremarkable, hemoglobin stable, electrolytes sodium is up to 135, BUN/creatinine 19/1.0, lactic acid 2.3, c-reactive protein 1.45, urinalysis 3+ leukocytes, bacteria also present. Ultrasound of his right leg did not show any DVT. IMPRESSION: 1. Altered mental status/metabolic encephalopathy probably due to hypoglycemia. I am concerned about the urine. It is difficult to sort this out-he has recurrent urinary infections and also has some colonization as well, 03/22/2019 ecoli sensitive to cephazolin. Because of the elevated lactate and elevated c-reactive protein I am going to cover him with Ancef pending results of the culture. 2. Diabetes. Blood sugar with coverage ordered. 3. CHF. Compensated on exam, continue diuretic therapy. Holding off on IV fluid despite the elevated lactate. 4. History of recurrent c diff, probiotic has been ordered. 5. Atrial fibrillation. Continue his Eliquis. His rate is controlled.
[2019-04-27 18:30] VITALS: BP 129/61
[2019-04-27] MEDS: ceFAZolin SOD 1 GM in D5W MINI-BAG PLUS 50 ML IV SCH (19:43)
[2019-04-27] MEDS: LACTOBACILLUS ACIDOPHILUS CAP (BACID) PO SCH (19:49)
[2019-04-27] MEDS: POTASSIUM CHLORIDE 10 MEQ SR TABLET PO SCH (20:55)
[2019-04-27] MEDS: PANTOPRAZOLE 40MG TAB (PROTONIX) PO SCH (20:56)
[2019-04-27] MEDS: ATORVASTATIN 20 MG TAB PO SCH (20:56)
[2019-04-27] MEDS: APIXABAN 2.5 MG TAB (ELIQUIS) PO SCH (20:56)
[2019-04-27] MEDS: GABAPENTIN 300 MG CAP PO SCH (20:56)
[2019-04-27] MEDS: MAGNESIUM OXIDE 400 MG TAB (MAG-OX) PO SCH (20:56)
[2019-04-27] MEDS: LORATADINE 10 MG TAB PO SCH (20:56)
[2019-04-27 21:07] VITALS: BP 127/63
[2019-04-28] MEDS: ceFAZolin SOD 1 GM in D5W MINI-BAG PLUS 50 ML IV SCH ×3 (02:00→17:49)
[2019-04-28 05:25] VITALS: BP 128/62
[2019-04-28 06:10] LABS: HEMATOCRIT 30.1 % (42.0-52.0); MEAN CORPUSCULAR HEMOGLOBIN 28.8 pg (27.0-33.0); MEAN CORPUSCULAR HGB CONC 33.2 g/dl (32.0-36.5); MEAN CORPUSCULAR VOLUME 86.7 fl (80.0-96.0); PLATELET COUNT, AUTOMATED 242 10^3/uL (150-450); RED BLOOD COUNT 3.47 10^6/uL (4.30-6.10); WHITE BLOOD COUNT 7.4 10^3/uL (4.0-10.0)
[2019-04-28 06:36] LABS: BLOOD UREA NITROGEN 20 MG/DL (7-18); CALCIUM LEVEL 8.8 MG/DL (8.8-10.2); CARBON DIOXIDE LEVEL 30 MEQ/L (21-32); CHLORIDE LEVEL 100 MEQ/L (98-107); CREATININE FOR GFR 1.19 MG/DL (0.70-1.30); GLOMERULAR FILTRATION RATE > 60.0 (>42); GLUCOSE, FASTING 182 MG/DL (70-100); SODIUM LEVEL 134 MEQ/L (136-145)
[2019-04-28] MEDS: GABAPENTIN 300 MG CAP PO SCH ×3 (09:00→21:23)
[2019-04-28] MEDS: HumaLOG INSULIN (NovoLOG) PER UNIT SC SCH ×4 (09:00→21:00)
[2019-04-28] MEDS: SPIRONOLACTONE 12.5MG PER 1/2 TABLET PO SCH (09:00)
[2019-04-28] MEDS: MAGNESIUM OXIDE 400 MG TAB (MAG-OX) PO SCH ×2 (09:01→21:23)
[2019-04-28] MEDS: FENOFIBRATE 145 MG TAB (TRICOR) PO SCH (09:01)
[2019-04-28] MEDS: POTASSIUM CHLORIDE 10 MEQ SR TABLET PO SCH ×2 (09:01→21:23)
[2019-04-28] MEDS: APIXABAN 2.5 MG TAB (ELIQUIS) PO SCH ×2 (09:01→21:23)
[2019-04-28] MEDS: LACTOBACILLUS ACIDOPHILUS CAP (BACID) PO SCH ×3 (09:01→17:49)
[2019-04-28] MEDS: PANTOPRAZOLE 40MG TAB (PROTONIX) PO SCH ×2 (09:01→21:23)
[2019-04-28] MEDS: FUROSEMIDE 20 MG TAB PO SCH (09:01)
[2019-04-28] MEDS: LOSARTAN 25 MG TAB PO SCH (09:02)
[2019-04-28 10:00] VITALS: BP 126/61
--- NOTE | 2019-04-28 10:13 | IPN ---
DATE: 04/28/2019 Cachorro seems back to normal per his family members. He had apparently two hypoglycemic episodes the day before he was admitted, per today's family members present (originally I was told just one). Again, I think that accounts for his confusion yesterday. He denies shortness of breath, chest pain, headache. PHYSICAL EXAMINATION: Vital Signs: Stable, afebrile. He is alert, conversant, in no distress. Lungs: Clear. Heart: Regular rhythm. Abdomen: Soft, nontender. No peripheral edema. LABORATORY: Blood sugars are in the 200 range. Electrolytes unremarkable. CBC is stable. IMPRESSION: 1. Encephalopathy, probably from hypoglycemia. This has been corrected and mental status is back to normal. 2. Diabetes. Fingerstick blood sugar with coverage ordered. 3. Congestive heart failure (CHF), compensated on exam. 4. History of recurrent Clostridium difficile (C diff). Probiotic has been ordered. 5. Atrial fibrillation. Continue his Eliquis. His rate is controlled. 6. History of recurrent urinary tract infections. I put him on Ancef yesterday, awaiting for results of his culture. Sometimes he is infected, sometimes he is just colonized. Culture results should be back tomorrow. Probiotic was ordered as he has a history of Clostridium difficile.
[2019-04-28 14:00] VITALS: BP 126/63
[2019-04-28] MEDS ORDERED: ONDANSETRON 4MG/2ML VIAL (J2405) IV PRN (16:15)
[2019-04-28 18:00] VITALS: BP 117/59
[2019-04-28] MEDS: ACETAMINOPHEN TAB 650MG DOSE (2X325MG) PO PRN (18:28)
[2019-04-28] MEDS: ATORVASTATIN 20 MG TAB PO SCH (21:23)
[2019-04-28] MEDS: LORATADINE 10 MG TAB PO SCH (21:23)
[2019-04-28 22:00] VITALS: BP 116/60
[2019-04-29 02:00] VITALS: BP 114/60
[2019-04-29] MEDS: ceFAZolin SOD 1 GM in D5W MINI-BAG PLUS 50 ML IV SCH ×3 (02:49→17:39)
[2019-04-29 05:55] LABS: HEMATOCRIT 34.9 % (42.0-52.0); HEMOGLOBIN 11.2 g/dl (13.5-17.5); MEAN CORPUSCULAR HEMOGLOBIN 29.1 pg (27.0-33.0); MEAN CORPUSCULAR HGB CONC 32.1 g/dl (32.0-36.5); MEAN CORPUSCULAR VOLUME 90.6 fl (80.0-96.0); RED BLOOD COUNT 3.85 10^6/uL (4.30-6.10); WHITE BLOOD COUNT 6.2 10^3/uL (4.0-10.0)
[2019-04-29 06:00] VITALS: BP 117/60
[2019-04-29 06:09] LABS: PLATELET COUNT, AUTOMATED 130 10^3/uL (150-450)
[2019-04-29 06:36] LABS: CALCIUM LEVEL 8.4 MG/DL (8.8-10.2); CREATININE FOR GFR 1.29 MG/DL (0.70-1.30); GLOMERULAR FILTRATION RATE 58.1 (>42); POTASSIUM SERUM 4.4 MEQ/L (3.5-5.1)
[2019-04-29] MEDS: LACTOBACILLUS ACIDOPHILUS CAP (BACID) PO SCH ×3 (08:50→17:39)
[2019-04-29] MEDS: HumaLOG INSULIN (NovoLOG) PER UNIT SC SCH ×4 (08:50→21:19)
[2019-04-29] MEDS: SPIRONOLACTONE 12.5MG PER 1/2 TABLET PO SCH (08:50)
[2019-04-29] MEDS: PANTOPRAZOLE 40MG TAB (PROTONIX) PO SCH ×2 (08:50→21:20)
[2019-04-29] MEDS: FENOFIBRATE 145 MG TAB (TRICOR) PO SCH (08:50)
[2019-04-29] MEDS: MAGNESIUM OXIDE 400 MG TAB (MAG-OX) PO SCH ×2 (08:51→21:19)
[2019-04-29] MEDS: POTASSIUM CHLORIDE 10 MEQ SR TABLET PO SCH ×2 (08:51→21:19)
[2019-04-29] MEDS: APIXABAN 2.5 MG TAB (ELIQUIS) PO SCH ×2 (08:51→21:20)
[2019-04-29] MEDS: LOSARTAN 25 MG TAB PO SCH (08:51)
[2019-04-29] MEDS: GABAPENTIN 300 MG CAP PO SCH ×3 (08:51→21:20)
[2019-04-29] MEDS: FUROSEMIDE 20 MG TAB PO SCH (08:52)
[2019-04-29 10:00] VITALS: BP 112/63
--- NOTE | 2019-04-29 11:04 | IPN ---
DATE: 04/29/2019 Calos is seen on [address]. Mental status seems back to normal, yesterday, resolved. He would like to go home, but he thinks he might be a little too weak for that. PHYSICAL EXAM: Afebrile. Vital signs stable. Lungs: Clear. Heart: Regular rhythm. Abdomen: Soft, nontender. No peripheral edema. LABORATORY: CBC, BMP look unremarkable. IMPRESSION: 1. Altered mental status, probably from repeated hypoglycemic events the day before. He is back to normal mental status. 2. Urinary tract infection. Urine culture is still pending. He is on Ancef for now. The rest of his medical conditions are stable. He did very well on physical medicine and rehabilitation (PM and R), deteriorated soon after being home. Might benefit from being back in the rehab unit.
[2019-04-29 14:00] VITALS: BP 110/60
[2019-04-29] MEDS: ACETAMINOPHEN TAB 650MG DOSE (2X325MG) PO PRN ×2 (15:59→21:18)
[2019-04-29] MEDS: ATORVASTATIN 20 MG TAB PO SCH (21:20)
[2019-04-29] MEDS: LORATADINE 10 MG TAB PO SCH (21:20)
[2019-04-29 22:00] VITALS: BP 93/43
[2019-04-30] MEDS: ceFAZolin SOD 1 GM in D5W MINI-BAG PLUS 50 ML IV SCH ×3 (01:58→17:43)
[2019-04-30 02:00] VITALS: BP 104/65
[2019-04-30 06:00] VITALS: BP 103/68
[2019-04-30 06:12] LABS: HEMATOCRIT 28.8 % (42.0-52.0); HEMOGLOBIN 9.4 g/dl (13.5-17.5); MEAN CORPUSCULAR HEMOGLOBIN 27.6 pg (27.0-33.0); MEAN CORPUSCULAR HGB CONC 32.6 g/dl (32.0-36.5); MEAN CORPUSCULAR VOLUME 84.5 fl (80.0-96.0); PLATELET COUNT, AUTOMATED 241 10^3/uL (150-450); RED BLOOD COUNT 3.41 10^6/uL (4.30-6.10); WHITE BLOOD COUNT 6.9 10^3/uL (4.0-10.0)
[2019-04-30 06:35] LABS: CALCIUM LEVEL 8.6 MG/DL (8.8-10.2); CREATININE FOR GFR 1.32 MG/DL (0.70-1.30); GLOMERULAR FILTRATION RATE 56.6 (>42); POTASSIUM SERUM 4.3 MEQ/L (3.5-5.1)
[2019-04-30] MEDS: HumaLOG INSULIN (NovoLOG) PER UNIT SC SCH ×4 (08:04→20:46)
[2019-04-30] MEDS: POTASSIUM CHLORIDE 10 MEQ SR TABLET PO SCH ×2 (08:04→20:46)
[2019-04-30] MEDS: GABAPENTIN 300 MG CAP PO SCH ×3 (08:11→20:46)
[2019-04-30] MEDS: FENOFIBRATE 145 MG TAB (TRICOR) PO SCH (08:11)
[2019-04-30] MEDS: LACTOBACILLUS ACIDOPHILUS CAP (BACID) PO SCH ×3 (08:11→17:43)
[2019-04-30] MEDS: SPIRONOLACTONE 12.5MG PER 1/2 TABLET PO SCH (08:11)
[2019-04-30] MEDS: MAGNESIUM OXIDE 400 MG TAB (MAG-OX) PO SCH ×2 (08:11→20:46)
[2019-04-30] MEDS: PANTOPRAZOLE 40MG TAB (PROTONIX) PO SCH ×2 (08:11→20:46)
[2019-04-30] MEDS: FUROSEMIDE 20 MG TAB PO SCH (08:12)
[2019-04-30] MEDS: APIXABAN 2.5 MG TAB (ELIQUIS) PO SCH ×2 (08:12→20:46)
[2019-04-30] MEDS: LOSARTAN 25 MG TAB PO SCH (08:12)
[2019-04-30 10:14] LABS: MAGNESIUM LEVEL 1.5 MG/DL (1.8-2.4)
[2019-04-30] MEDS: ACETAMINOPHEN TAB 650MG DOSE (2X325MG) PO PRN ×2 (12:26→20:47)
[2019-04-30 13:36] VITALS: BP 97/68
[2019-04-30 20:16] VITALS: BP 99/67
[2019-04-30] MEDS: ATORVASTATIN 20 MG TAB PO SCH (20:46)
[2019-04-30] MEDS: LORATADINE 10 MG TAB PO SCH (20:47)
--- NOTE | 2019-04-30 21:15 | IPN ---
DATE: 04/30/2019 SUBJECTIVE: The patient feels that his thought processes and mental clarity are back to normal. Objectively, as noted below, this seems to be true. He has no discomfort, except he says he is still not able to walk. He was walking at the time of discharge from ARU and became impaired a day or two after going home. At this time, he denies cough, chest pain, dyspnea. He is comfortable lying supine. No abdominal pain. OBJECTIVE: Vital signs: Blood pressure 103/68, pulse by my observation radial 80 and regular, nurse documentation 103, temperature 97.5, oxygen saturation 97% apparently on room air since no O2 delivery is specified. Intake and output over the past 24 hours 2460 in, 400 out. Urinalysis on admission was 3+ leukocytes and 31 white cells per high-power field, tested negative for nitrite, was 1+ positive for bacteria, 151 red cells. Chemistry this morning sodium 135, creatinine curiously is up to 1.32. He was admitted at 1.19, calcium 8.6 and white count is 6900 with hemoglobin 9.4 and this represents nearly 2 gram drop from yesterday. No evidence of bleeding. No melena. No vomiting. No distension. MICROBIOLOGY SPECIMENS: Blood cultures still no growth. Urine culture still listed as pending having been collected on April 27. Anticipate reports available today. ASSESSMENT: Change in mental status possibly etiologies are numerous, but include hypoglycemia, toxic encephalopathy related to bacteria retained in urine. He does have a drainage system suprapubic catheter, but this could be substantial residual and would leave him at risk for toxins from organisms in his bladder creating toxic syndrome including metabolic encephalopathy. He has regressed in terms of his functional status. He is still able to wiggle his toes, but has not been able to ambulate since admission. Physical therapy should be seeing him today. Diabetes. Continue current treatment. Hyponatremia. Monitor for low sodiums. This has been a chronic problem for him. Increased creatinine, monitor. He has not received IV fluid since admission, but his by mouth intake has been considerable reflecting on the nature of his hyponatremia as well. Plan on recheck his labs tomorrow. If urine culture is positive, will adjust antibiotic treatment which is currently Ancef accordingly. Physical therapy consult has been ordered and will be essential in helping to decide whether he is a candidate for readmission to ARU or whether he should consider permanent fpc placement at this point. He remains on magnesium oxide. Will check magnesium level also.
--- NOTE | 2019-04-30 21:17 | IPN ---
DATE: 04/30/2019 ADDENDUM: Mr. Smalls has chronic diastolic congestive failure as evidenced by an ejection fraction of 60% and previously documented signs and symptoms consistent with congestive heart failure (CHF).
[2019-05-01] MEDS: ceFAZolin SOD 1 GM in D5W MINI-BAG PLUS 50 ML IV SCH ×3 (01:13→18:14)
[2019-05-01] MEDS: ACETAMINOPHEN TAB 650MG DOSE (2X325MG) PO PRN ×2 (01:13→12:03)
[2019-05-01 05:58] VITALS: BP 102/66
[2019-05-01 06:16] LABS: HEMATOCRIT 28.4 % (42.0-52.0); HEMOGLOBIN 9.4 g/dl (13.5-17.5); MEAN CORPUSCULAR HEMOGLOBIN 27.9 pg (27.0-33.0); MEAN CORPUSCULAR HGB CONC 33.1 g/dl (32.0-36.5); MEAN CORPUSCULAR VOLUME 84.3 fl (80.0-96.0); PLATELET COUNT, AUTOMATED 256 10^3/uL (150-450); RED BLOOD COUNT 3.37 10^6/uL (4.30-6.10); WHITE BLOOD COUNT 6.8 10^3/uL (4.0-10.0)
[2019-05-01 06:36] LABS: BLOOD UREA NITROGEN 25 MG/DL (7-18); CALCIUM LEVEL 8.6 MG/DL (8.8-10.2); CARBON DIOXIDE LEVEL 28 MEQ/L (21-32); CHLORIDE LEVEL 103 MEQ/L (98-107); CREATININE FOR GFR 1.21 MG/DL (0.70-1.30); GLOMERULAR FILTRATION RATE > 60.0 (>42); GLUCOSE, FASTING 167 MG/DL (70-100); POTASSIUM SERUM 4.4 MEQ/L (3.5-5.1); SODIUM LEVEL 134 MEQ/L (136-145)
--- NOTE | 2019-05-01 08:28 | IPNPDOC ---
Subjective Date Seen The patient was seen on 05/01/19. Subjective Chief Complaint/HPI The patient lying comfortably in bed as I entered the room. Patient reports to be feeling well in terms of his mentation. He is working with PT Constitutional: Denies: Chills, Fever Pulmonary: Denies: Dyspnea, Cough Gastrointestinal: Denies: Nausea, Vomiting, Abdominal Pain Psych: Reports: Mood Normal Objective Physical Examination General Exam: Positive: Alert, Cooperative, No Acute Distress Neck Exam: Positive: Supple; Negative: JVD Chest Exam: Positive: Clear to auscultation, Normal air movement; Negative: Rales, Rhonchi, Wheezing Heart Exam: Positive: Rate Normal Abdomen Exam: Positive: Normal bowel sounds, Soft, Other (Suprapubic cath); Negative: Tenderness Extremity Exam: Negative: Edema Skin Exam: Negative: Rash Psych Exam: Positive: Mood NL Assessment /Plan Problems (1) Altered mental state Status: Resolved Problem Text: 05/01/19: Mental status has returned to his baseline. PT working with patient to regain strength/return functional status back to baseline. Not safe for discharge at this time (2) UTI (urinary tract infection) due to urinary indwelling catheter Status: Acute Response to Treatment: Stable Problem Text: 05/01/19: Day # 6 of Cefazolin (3) T2DM (type 2 diabetes mellitus) Status: Chronic Response to Treatment: Stable Problem Text: 05/01/19: He remains on sliding scale coverage. BG this morning 326. We may want to consider restarting his basal insulin (4) HTN (hypertension) Status: Chronic Response to Treatment: Stable Problem Text: 05/01/19: B/P well controlled (5) A-fib Status: Chronic Response to Treatment: Stable Problem Text: 05/01/19: Heart rate controlled. Remains on Eliquis (6) Chronic diastolic (congestive) heart failure Status: Chronic Response to Treatment: Stable Problem Text: : Well compensated today Plan/VTE VTE Prophylaxis Ordered?: Yes (Eliquis ) VS, I&O, 24H, Fishbone Vital Signs/I&O Vital Signs Date Time Temp Pulse Resp B/P (MAP) Pulse Ox O2 Delivery O2 Flow Rate FiO2 05/01/19 05:58 97.9 110 16 102/66 (78) 98 04/27/19 16:56 Room Air I&O- Last 24 Hours up to 6 AM 05/01/19 06:00 Intake Total 1310 ml Output Total 1250 ml Balance 60 ml Laboratory Data 24H LABS Laboratory Tests 2 04/30/19 11:39: Bedside Glucose (Misc Panel) 271H 04/30/19 17:36: Bedside Glucose (Misc Panel) 301H 04/30/19 20:14: Bedside Glucose (Misc Panel) 326H 05/01/19 05:49: Nucleated Red Blood Cells % (auto) 0.0, Anion Gap 3L, Glomerular Filtration Rate > 60.0, Blood Urea Nitrogen 25H, Creatinine 1.21, Sodium Level 134L, Potassium Level 4.4, Chloride Level 103, Carbon Dioxide Level 28, Calcium Level 8.6L CBC/BMP Laboratory Tests 05/01/19 05:49 Red Blood Count 3.37 L, Mean Corpuscular Volume 84.3, Mean Corpuscular Hemoglobin 27.9, Mean Corpuscular Hemoglobin Concent 33.1, Red Cell Distribution Width 15.3 H, Calcium Level 8.6 L Microbiology Microbiology 04/27/19 Blood Culture - Preliminary, Resulted No Growth after 72 hours. All specime... 04/27/19 Blood Culture - Preliminary, Resulted No Growth after 72 hours. All specime... 04/27/19 Urine Culture - Preliminary, Resulted Escherichia Coli JOHN PARKER [facility] May 01, 2019 08:28
[2019-05-01] MEDS: PANTOPRAZOLE 40MG TAB (PROTONIX) PO SCH ×2 (08:42→22:08)
[2019-05-01] MEDS: POTASSIUM CHLORIDE 10 MEQ SR TABLET PO SCH ×2 (08:42→22:08)
[2019-05-01] MEDS: APIXABAN 2.5 MG TAB (ELIQUIS) PO SCH ×2 (08:42→22:08)
[2019-05-01] MEDS: SPIRONOLACTONE 12.5MG PER 1/2 TABLET PO SCH (08:42)
[2019-05-01] MEDS: LACTOBACILLUS ACIDOPHILUS CAP (BACID) PO SCH ×3 (08:42→18:13)
[2019-05-01] MEDS: GABAPENTIN 300 MG CAP PO SCH ×3 (08:42→22:08)
[2019-05-01] MEDS: FENOFIBRATE 145 MG TAB (TRICOR) PO SCH (08:42)
[2019-05-01] MEDS: MAGNESIUM OXIDE 400 MG TAB (MAG-OX) PO SCH ×2 (08:43→22:08)
[2019-05-01] MEDS: LOSARTAN 25 MG TAB PO SCH (08:43)
[2019-05-01] MEDS: FUROSEMIDE 20 MG TAB PO SCH (08:43)
[2019-05-01] MEDS: HumaLOG INSULIN (NovoLOG) PER UNIT SC SCH ×4 (08:44→22:03)
[2019-05-01 14:00] VITALS: BP 106/63
[2019-05-01 20:47] VITALS: BP 114/62
[2019-05-01] MEDS ORDERED: LEVEMIR (INSULIN DETEMIR) 1 UNITS/0.01ML SC SCH (21:00)
[2019-05-01] MEDS: LORATADINE 10 MG TAB PO SCH (22:08)
[2019-05-01] MEDS: ATORVASTATIN 20 MG TAB PO SCH (22:08)
[2019-05-02] MEDS: ceFAZolin SOD 1 GM in D5W MINI-BAG PLUS 50 ML IV SCH ×2 (02:34→09:15)
[2019-05-02 05:39] VITALS: BP 109/62
[2019-05-02 06:46] LABS: HEMATOCRIT 27.2 % (42.0-52.0); MEAN CORPUSCULAR HEMOGLOBIN 27.9 pg (27.0-33.0); MEAN CORPUSCULAR HGB CONC 33.1 g/dl (32.0-36.5); MEAN CORPUSCULAR VOLUME 84.2 fl (80.0-96.0); PLATELET COUNT, AUTOMATED 255 10^3/uL (150-450); RED BLOOD COUNT 3.23 10^6/uL (4.30-6.10); WHITE BLOOD COUNT 6.2 10^3/uL (4.0-10.0)
[2019-05-02 07:07] LABS: BLOOD UREA NITROGEN 25 MG/DL (7-18); CALCIUM LEVEL 8.3 MG/DL (8.8-10.2); CARBON DIOXIDE LEVEL 28 MEQ/L (21-32); CHLORIDE LEVEL 103 MEQ/L (98-107); CREATININE FOR GFR 1.17 MG/DL (0.70-1.30); GLOMERULAR FILTRATION RATE > 60.0 (>42); GLUCOSE, FASTING 97 MG/DL (70-100); POTASSIUM SERUM 4.3 MEQ/L (3.5-5.1); SODIUM LEVEL 135 MEQ/L (136-145)
[2019-05-02] MEDS: HumaLOG INSULIN (NovoLOG) PER UNIT SC SCH ×2 (07:30→12:30)
[2019-05-02] MEDS ORDERED: KEFL500C17 PO (08:14)
--- NOTE | 2019-05-02 08:26 | DS.PDOC ---
Discharge Summary General Date of Admission Apr 27, 2019 at 16:32 Date of Discharge May 02, 2019 Primary Care Physician: Leo Schreiber MD Attending Physician: Leo Schreiber MD Specialist/Consultants Involve: IKER NINO MD Discharge Summary PROCEDURES PERFORMED DURING STAY: None ADMITTING DIAGNOSES: 1. Altered Mental status 2. UTI indwelling catheter 3. Diabetes 4. Congestive Heart Failure 5. Atrial fibrillation COMPLICATIONS/CHIEF COMPLAINT: Metabolic Encephalopathy. HISTORY OF PRESENT ILLNESS: Calos Camacho was discharged from PMR unit. He was doing very well on discharge, ambulating further than he has in probably about a year. Certainly ready for a discharge. He is ambulating 90 feet and not having any limitations as on his self care. Last night he had a hypoglycemic episode and today he is confused and did not know what to do with the insulin pens and he was putting his glucose monitor against his teeth and things such as that. He is being admitted for further evaluation. HOSPITAL COURSE: Patient was admitted d/t altered mental status/metabolic encephalopathy probably due to hypoglycemia or urinary tract infection. Patient with recurrent urinary infections and also has some colonization. Because of the elevated lactate and elevated CRP, he was treated emperically with cephazolin d/t 03/22/2019 ecoli sensitive to the medication. Urine culture demonstrated E- coli again and patient was maintained on appropriate antibiotic therapy. He was d/c on Keflex. Blood cultures were negative. His DM was covered with sliding scale insulin. His fluid volume status remained stable. Patient worked with PT throughout his hospital course and was discharged home with services. DISCHARGE MEDICATIONS: Please see below. ALLERGIES: Please see below. PHYSICAL EXAMINATION ON DISCHARGE: VITAL SIGNS: Please see below. GENERAL: AOx3, NAD HEENT: unremarkable NECK: soft, supple, no JVD CARDIOVASCULAR EXAMINATION: RRR RESPIRATORY EXAMINATION: CTA ABDOMINAL EXAMINATION: Soft. Superior pubic catheter present and nontender EXTREMITIES: trace edema SKIN: warm, dry NEUROLOGICAL EXAMINATION: intact PSYCHIATRIC EXAMINATION:mood normal LABORATORY DATA: Please see below. IMAGING Head CT: IMPRESSION: Mild atrophy with no acute intracranial hemorrhage or other acute intracranial finding. Multiple x-rays performed ACTIVITY: As tolerated DIET: Consistent carb DISCHARGE PLAN: Home with services DISCHARGE INSTRUCTIONS: 1. F/U with PCP in one week DISCHARGE CONDITION: Stable Vital Signs/I&Os Vital Signs Date Time Temp Pulse Resp B/P (MAP) Pulse Ox O2 Delivery O2 Flow Rate FiO2 05/02/19 05:39 97.9 111 16 109/62 (78) 98 04/27/19 16:56 Room Air I&O- Last 24 Hours up to 6 AM 05/02/19 06:00 Intake Total 1620 ml Output Total 1200 ml Balance 420 ml Laboratory Data Labs 24H Laboratory Tests 2 05/01/19 11:38: Bedside Glucose (Misc Panel) 176H 05/01/19 16:43: Bedside Glucose (Misc Panel) 200H 05/01/19 21:49: Bedside Glucose (Misc Panel) 232H 05/02/19 06:19: Nucleated Red Blood Cells % (auto) 0.0, Anion Gap 4L, Glomerular Filtration Rate > 60.0, Blood Urea Nitrogen 25H, Creatinine 1.17, Sodium Level 135L, Potassium Level 4.3, Chloride Level 103, Carbon Dioxide Level 28, Calcium Level 8.3L CBC/BMP Laboratory Tests 05/02/19 06:19 Red Blood Count 3.23 L, Mean Corpuscular Volume 84.2, Mean Corpuscular Hemoglobin 27.9, Mean Corpuscular Hemoglobin Concent 33.1, Red Cell Distribution Width 15.2 H, Calcium Level 8.3 L FSBS Laboratory Tests Test 05/01/19 11:38 05/01/19 16:43 05/01/19 21:49 Range/Units Bedside Glucose (Misc Panel) 176 200 232 83-110 MG/DL Microbiology Microbiology 04/27/19 Blood Culture - Preliminary, Resulted No Growth after 72 hours. All specime... 04/27/19 Blood Culture - Preliminary, Resulted No Growth after 72 hours. All specime... 04/27/19 Urine Culture - Final, Complete Escherichia Coli Enterococcus Faecalis Discharge Medications Scheduled Apixaban (Eliquis) 2.5 Mg Tablet, 2.5 MG PO BID, (Reported) Atorvastatin Calcium (Atorvastatin Calcium) 40 Mg Tab, 40 MG PO QHS, (Reported) Cephalexin (Keflex) 500 Mg Capsule, 500 MG PO BID Ergocalciferol (Vitamin D2) (Drisdol) 50,000 Unit Capsule, 50,000 UNIT PO QWEEK, (Reported) SUNDAYS Fenofibrate Nanocrystallized (Fenofibrate) 145 Mg Tab, 145 MG PO DAILY, (Report ed) Furosemide (Lasix) 20 Mg Tablet, 20 MG PO DAILY, (Reported) Gabapentin (Gabapentin) 300 Mg Capsule, 300 MG PO TID, (Reported) Insulin Human Lispro (Humalog) 1 Units/0.01 Ml Inj, 1 DOSE SC AC, (Reported) PER SLIDING SCALE L.acidoph/L.bulg/B.bif/S.therm (Bacid Caplet) 1 Tab Tab, 1 TAB PO BID, (Reported) Loratadine (Loratadine) 10 Mg Tablet, 10 MG PO QHS, (Reported) Losartan Potassium (Losartan Potassium) 25 Mg Tablet, 12.5 MG PO DAILY, (Reported) Magnesium Oxide (Magnesium Oxide) 400 Mg Tab, 400 MG PO BID, (Reported) Pantoprazole Sodium (Pantoprazole Sodium) 40 Mg Tablet.dr, 40 MG PO BID, (Reported) Potassium Chloride (Potassium Chloride) 10 Meq Tab.er.prt, 10 MEQ PO BID, (Reported) Sodium Chloride (Sodium Chloride) 1 Gm Tablet, 1 GM PO BID, (Reported) Solifenacin Succinate (Solifenacin Succinate) 5 Mg Tablet, 10 MG PO QHS, (Repor arnulfo) Spironolactone (Spironolactone) 25 Mg Tablet, 12.5 MG PO DAILY, (Reported) Scheduled PRN Acetaminophen (Acetaminophen ER) 650 Mg Tablet.er, 650 MG PO TID PRN for PAIN, (Reported) Baclofen (Baclofen) 20 Mg Tablet, 10 MG PO TID PRN for MUSCLE SPASMS, (Reported) Bisacodyl (Bisacodyl) 10 Mg Sup, 10 MG LA DAILY PRN for CONSTIPATION, (Reported) Clotrimazole (Clotrimazole) 1 % Cre, 1 DOSE TOP BID PRN for RASH/ITCHING, (Reported) APPLY TO GROIN AREA Docusate Sodium (Docusate Sodium) 100 Mg Capsule, 100 MG PO BID PRN for CONSTIPATION, (Reported) Nitroglycerin (Nitrostat) 0.4 Mg Subl, 0.4 MG SL NITRO PRN for CHEST PAIN, (Reported) Nystatin (Nystatin Powder) 100,000 Unit/Gm Pow, 1 DOSE TOP BID PRN for RASH/ITCHING, (Reported) APPLY TO GROIN AREA Polyethylene Glycol 3350 (Miralax) 119 Gm Powder, 17 GM PO DAILY PRN for CONSTIPATION, (Reported) dilute in 8 ounces of water or juice Simethicone (Simethicone) 180 Mg Capsule, 180 MG PO QIDP PRN for GAS PAIN, (Reported) Allergies Coded Allergies: Sulfa (Sulfonamide Antibiotics) (Verified Allergy, Intermediate, hives, 12/20/18) alcohol (Verified Allergy, Intermediate, soap rash, 12/20/18) carisoprodol (Verified Allergy, Intermediate, hives, 12/20/18) gum mastic (Verified Allergy, Intermediate, soap rash, 12/20/18) purell mosture therapy latex (Verified Allergy, Intermediate, rash, 12/20/18) methyl salicylate (Verified Allergy, Intermediate, soap rash, 12/20/18) methylparaben (Verified Allergy, Intermediate, hives, 12/20/18) morphine (Verified Allergy, Intermediate, HIVES RASH AT SITE LIKELY HISTAMINE RELEASE, 12/20/18) storax (Verified Allergy, Intermediate, soap rash, 12/20/18) SOO Inhibitors (Verified Allergy, Unknown, 12/20/18) TAPE (Verified Allergy, Unknown, STERISTRIPS, 02/10/18) hydrochlorothiazide (Verified Allergy, Unknown, unsure of reaction, 12/20/18) nitrofurantoin (Verified Adverse Reaction, Mild, diarrhea, 12/20/18) JOHN PARKER May 02, 2019 08:26
[2019-05-02] MEDS: APIXABAN 2.5 MG TAB (ELIQUIS) PO SCH (09:13)
[2019-05-02] MEDS: GABAPENTIN 300 MG CAP PO SCH (09:13)
[2019-05-02] MEDS: PANTOPRAZOLE 40MG TAB (PROTONIX) PO SCH (09:13)
[2019-05-02] MEDS: LACTOBACILLUS ACIDOPHILUS CAP (BACID) PO SCH ×2 (09:13→12:30)
[2019-05-02] MEDS: FUROSEMIDE 20 MG TAB PO SCH (09:13)
[2019-05-02] MEDS: POTASSIUM CHLORIDE 10 MEQ SR TABLET PO SCH (09:13)
[2019-05-02] MEDS: FENOFIBRATE 145 MG TAB (TRICOR) PO SCH (09:13)
[2019-05-02 09:14] VITALS: BP 109/62
[2019-05-02] MEDS: MAGNESIUM OXIDE 400 MG TAB (MAG-OX) PO SCH (09:14)
[2019-05-02] MEDS: LOSARTAN 25 MG TAB PO SCH (09:14)
[2019-05-02] MEDS: SPIRONOLACTONE 12.5MG PER 1/2 TABLET PO SCH (09:14)
--- NOTE | 2019-05-10 07:35 | ECGEPIP ---
[facility] - ED Test Date: 2019-04-27 Pat Name: TANIA HESS Department: Room: - Gender: Male Defense Attorney: ct : 1945 Requested By: FER Collins Order Number: [id number] Reading MD: Fer Cifuentes Measurements Intervals [place] Rate: 88 P: SD: 0 QRS: 119 QRSD: 157 T: 1 QT: 393 QTc: 477 Interpretive Statements atrial fibrillation MARKED RIGHT AXIS DEVIATION Right bundle branch block POSSIBLE SEPTAL MYOCARDIAL INFARCTION, PROBABLY OLD Prolonged QT interval Electronically Signed on 04-27-2019 13:15:12 EDT by Fer Cifuentes
== END 2019-05-02 14:04 | disposition home or self-care (01) | DRG 698 ==
LOC: M ED 11:26 → M ED INP 16:32 → M MS5PR 18:05
PROVIDERS: ADMIT Family Medicine; ATTEND Family Medicine
DX: T83.518A Infection and inflammatory reaction due to other urinary catheter, initial encounter (principal); G93.41 Metabolic encephalopathy; N39.0 Urinary tract infection, site not specified; G82.20 Paraplegia, unspecified; I50.32 Chronic diastolic (congestive) heart failure; E87.1 Hypo-osmolality and hyponatremia; E11.649 Type 2 diabetes mellitus with hypoglycemia without coma; N31.9 Neuromuscular dysfunction of bladder, unspecified; I48.2 Chronic atrial fibrillation; Z79.4 Long term (current) use of insulin; Z79.899 Other long term (current) drug therapy; Z88.8 Allergy status to other drugs, medicaments and biological substances; Z88.2 Allergy status to sulfonamides; Z91.040 Latex allergy status; I11.0 Hypertensive heart disease with heart failure; D50.9 Iron deficiency anemia, unspecified

== ENCOUNTER 2019-05-05 16:43 | Inpatient (IN) | payer MEDICARE, MEDICAID ==
[~2019-05-05] VITALS: Ht 170.2 cm; Wt 76.1 kg
[~2019-05-05 16:43] MED LIST changes: +ACET650T15 PO; +DOCU100C16 PO; +FENO145T13 PO; -FENO145T7 PO; +LASI20TA3 PO; +LOSA25TA14 PO; +POTA10TA17 PO; +SM LTAB5 PO; +VITA50005 PO
[2019-05-05] MEDS ORDERED: ACETAMINOPHEN 325 MG TAB PO ONE (17:45)
[2019-05-05] MEDS ORDERED: NS 1,000 ML IV ONE (17:45)
[2019-05-05 17:55] LABS: BASO % 0.2 % (0.0-1.0); EOS % 0.3 % (0.0-3.0); HEMATOCRIT 30.3 % (42.0-52.0); HEMOGLOBIN 9.8 g/dl (13.5-17.5); LYMPH # 1.7 10^3/uL (1.5-4.5); LYMPH % 13.6 % (24.0-44.0); MEAN CORPUSCULAR HEMOGLOBIN 28.2 pg (27.0-33.0); MEAN CORPUSCULAR HGB CONC 32.3 g/dl (32.0-36.5); MEAN CORPUSCULAR VOLUME 87.3 fl (80.0-96.0); MONO % 7.9 % (0.0-5.0); NEUTROPHILS # 9.5 10^3/uL (1.8-7.7); NEUTROPHILS % 77.4 % (36.0-66.0); PLATELET COUNT, AUTOMATED 290 10^3/uL (150-450); RED BLOOD COUNT 3.47 10^6/uL (4.30-6.10); WHITE BLOOD COUNT 12.3 10^3/uL (4.0-10.0)
[2019-05-05 18:05] LABS: APPEARANCE, URINE CLEAR (CLEAR); BACTERIA, URINE AUTO NEGATIVE (NEGATIVE); BILIRUBIN, URINE AUTO NEGATIVE (NEGATIVE); BLOOD, URINE BLOOD 1+ (NEGATIVE); COLOR, URINE YELLOW (YELLOW); GLUCOSE, URINE (UA) AUTO NEGATIVE (NEGATIVE); KETONE, URINE AUTO NEGATIVE (NEGATIVE); LEUKOCYTE ESTERASE, URINE AUTO 2+ (NEGATIVE); NITRITE, URINE AUTO NEGATIVE (NEGATIVE); PROTEIN, URINE AUTO NEGATIVE (NEGATIVE); RBC, URINE AUTO 8 /HPF (0-3); SPECIFIC GRAVITY URINE AUTO 1.006 (1.002-1.035); SQUAMOUS EPITHELIAL CELL UR AU 0 /HPF (0-6); UROBILINOGEN, URINE AUTO 0.2 mg/dL (0.0-2.0); WBC, URINE AUTO 7 /HPF (0-3)
--- NOTE | 2019-05-05 18:23 | REP ---
Clinical: Fever . Comparison: 04/05/2019 . Findings: The mediastinum and cardiac silhouette are stable and within normal limits for portable technique. The lung borrego are clear without acute consolidation, effusion, or pneumothorax. Skeletal structures are intact. Previous left lower lobe infiltrate resolved. Impression: No acute cardiopulmonary process appreciated. Electronically Signed by Michael Man MD 05/05/2019 06:15 P
[2019-05-05 18:24] LABS: ALT/SGPT 9 U/L (12-78); BILIRUBIN,DIRECT 0.3 MG/DL (0.0-0.2); BILIRUBIN,TOTAL 0.4 MG/DL (0.2-1.0); BLOOD UREA NITROGEN 22 MG/DL (7-18); CALCIUM LEVEL 8.8 MG/DL (8.8-10.2); CARBON DIOXIDE LEVEL 29 MEQ/L (21-32); CHLORIDE LEVEL 104 MEQ/L (98-107); CREATININE FOR GFR 1.19 MG/DL (0.70-1.30); GLOMERULAR FILTRATION RATE > 60.0 (>42); GLUCOSE, FASTING 139 MG/DL (70-100); POTASSIUM SERUM 4.6 MEQ/L (3.5-5.1); SODIUM LEVEL 138 MEQ/L (136-145); TOTAL PROTEIN 6.1 GM/DL (6.4-8.2)
--- NOTE | 2019-05-05 19:03 | REPVR ---
EXAM: CT Head Without Contrast EXAM DATE/TIME: 05/05/2019 6:05 PM CLINICAL HISTORY: 73 years old, male; Alteration of consciousness; Somnolence (drowsiness); Additional info: Altered loc TECHNIQUE: Imaging protocol: Computed tomography of the head without contrast. Radiation optimization: All CT scans at this facility use at least one of these dose optimization techniques: automated exposure control; mA and/or kV adjustment per patient size (includes targeted exams where dose is matched to clinical indication); or iterative reconstruction. COMPARISON: CT Head without contrast 04/27/2019 11:49 AM FINDINGS: Brain: Nonspecific hypodensities of the periventricular and deep subcortical white matter, most likely secondary to chronic small vessel ischemic change. No intracranial hemorrhage or extra-axial fluid collection. No evidence of mass effect or midline shift. Santa-white matter differentiation is normal. Ventricles: Prominence of the ventricles and sulci, most likely attributed to parenchymal volume loss. Bones/joints: No acute osseus lesion or fracture. Sinuses: Unremarkable as visualized. Mastoid air cells: Unremarkable. Soft tissues: Unremarkable. IMPRESSION: 1. No acute intracranial pathology. 2. Other chronic findings, as above. Electronically signed by: Leo Saleh On 05/05/2019 19:02:23 PM
[2019-05-05] MEDS ORDERED: DEXTROSE 50% 50 ML SYRINGE IV PRN (21:00)
[2019-05-05] MEDS ORDERED: BISACODYL 10 MG SUPP PR PRN (21:00)
[2019-05-05] MEDS ORDERED: DOCUSATE SODIUM 100 MG CAP PO PRN (21:00)
[2019-05-05] MEDS: HumaLOG INSULIN (NovoLOG) PER UNIT SC SCH (21:00)
[2019-05-05] MEDS ORDERED: CLOTRIMAZOLE 1% TOPICAL CREAM 30GM TOP PRN (21:00)
[2019-05-05] MEDS ORDERED: GLUCAGON FOR INJ 1 MG VIAL (J1610) SC PRN (21:00)
[2019-05-05] MEDS ORDERED: GLUCOSE 4 GM CHEW TABLET PO PRN (21:00)
[2019-05-05] MEDS ORDERED: NYSTATIN 100,000 UNITS/GM TOPICAL PWD 15 GM TOP PRN (21:00)
[2019-05-05 22:00] VITALS: BP 118/78
--- NOTE | 2019-05-05 22:04 | HPEPDOC ---
[facility] Medical History & Physical Date of Admission May 05, 2019 Date of Service: May 05, 2019 Primary Care Physician: Leo Schreiber MD Attending Physician: ATIYA HUTCHINSON MD History and Physical CODE STATUS: DO NOT RESUSCITATE with trial of intubation PRIMARY CARE PROVIDER: Dr. Schreiber's group ATTENDING: Dr. Atiya Hutchinson CHIEF COMPLAINT: Altered mental status HISTORY OF PRESENT ILLNESS: Patient is a 73 year old male presenting with chief complaint of altered mental status and multiple hospitalizations this summer. HPI obtained by daughter (Priscilla) who was present at bedside and is a nurse at [employer]. Patient was recently discharged on 05/02 for altered mental status that was thought to be secondary to hypoglycemia. He steadily improved and per his daughter was at his functional baseline both physically and mentally the day of discharge. She states that same day he was able to interact appropriately and was able to play card game with his family members. She did note that he did have some mild inappropriate behavior in terms of interacting with her daughter where he was maybe to mean to her but was otherwise fine. The following morning (05/03) when social workers or home nurses came to visit he continued to have inappropriate social interactions by way of being rude, mean, or making inappropriate comments. Moreover he was having intermittent difficulty with word finding and a somewhat low attention span. On 05/04, his son entered the room and found diarrhea all over the bed and all over the patient, this continued in the shower followed by a single episode of emesis and after that the patient was tired with increased confusion, again a low attention span, difficulty with word finding, and he forgot how to walk, and was unable to recognize that he was fall ing. On Tuesday, his family states that he was in bed most of the day and refused to get out of bed because he was complaining of right knee pain. They state he also was having hallucinations and slept most of the day. They decided to call the ambulance when they had increasing difficulty arousing him. Currently, he is responsive to questioning but does not always respond appropriately and has difficulty with word finding and frequently will drift off unless repeatedly prompted for an answer. When asked if anything hurt he responded yes, that he won't go to [facility]. 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 Lives at home with son FAMILY HISTORY: FATHER: 83 YRS, CANCER, COLON, DIAGNOSED WITH CANCER MOTHER: ALIVE 85 YRS, PACEMAKER, HYPOTHYROIDISM SIBLINGS: ALIVE, CANCER, COLON 2 BROTHER(S) , 4 SISTER(S) . 1 SON(S) , 2 DAUGHTER(S) - HEALTHY. ALLERGIES: Please see below. REVIEW OF SYSTEMS: GENERAL: Denies fevers, chills, recent unexpected weight change, night sweats, hemoptysis HEENT: Denies headache, dizziness, vision changes, hearing loss, sore throat CARDIOVASCULAR: Denies chest pain, palpitations, orthopnea RESPIRATORY: Denies shortness of breath, wheezing, cough GASTROINTESTINAL: denies nausea, vomiting, abdominal pain, constipation, diarrhea, bloody stool GENITOURINARY: Denies dysuria,urinary urgency, hematuria. MUSCULOSKELETAL: Denies muscle/joint pain, weakness, stiffness NEUROLOGICAL: Denies any numbness/tingling, focal weakness, or syncope HOME MEDICATIONS: Please see below. PHYSICAL EXAMINATION: Vitals: (see below) General: No acute distress, laying comfortably in bed. HEENT: Normocephalic, atraumatic. EOMI. pupils were 2 mm and reactive to light. No scleral icterus. Dry mucous membranes. No pharyngeal erythema or uvular deviation. Neck: No JVD, lymphadenopathy, or thyromegaly. Cardiac: irregular rate and rhythm, Normal S1 and S2, No murmurs, gallops, rubs. Pulm: Clear to auscultation b/l. Symmetric thorax. No wheezing, crackles, rhonchi Abd: Bowel Sounds present. Abdomen is soft, non-tender, non-distended. No guarding, rebound tenderness, or rigidity. No hepatosplenomegaly. No masses or eccymosis. Super pubic catheter is present with no drainage or erythema. Ext: No edema or cyanosis Neuro: Alert and oriented to person, place, time. Could identify his daughter in the room and her name. Was able to answer questions appropriately when pushed. Was able to answer what he would do in the event he had a flat tire. GCS of 15 Strength +5/5 BUE and BLE. CN 2-12 intact. F to N intact LABORATORY DATA: See below. IMAGING: Chest x-ray 05/05/19: Impression: No acute cardiopulmonary process appreciated. Previous left lower lobe infiltrate resolved Head CT 05/05/19: Impression: No acute intracranial pathology. Chronic findings as above. Prominence of the ventricles and foci, most likely attributed to parenchymal volume loss MICROBIOLOGY: Please see below. ASSESSMENT/PLAN: #. Altered mental status Initial workup is noncontributory, while he does have an elevated white count and a mildly positive urinalysis he is currently being treated for this infection and I suspect with his suprapubic catheter he will always have a posit anamaria UA. His chest x-ray was negative. Moreover his daughter and family have ensured that he takes all his medications that she has been laying them out for him. His head CT did not show acute findings, we may repeat his head CT in 24 hours to ensure no underlying stroke. We are unable to rule out TIA from the CT scan and are unable to obtain an MRI secondary to the patient's pacemaker. Currently, we are thinking the most likely cause of his altered mental status may be his gabapentin and baclofen. Even though these were recently reduced in terms the amount that he is supposed to take, they have the potential to have a greater effect on the elderly so we will hold these to see if he is able to improve without them. The daughter, Priscilla, will be available if anyone needs to reach out to her at [phone]. She is a healthcare proxy. Inform me the name ulcer form is on file and that her father is a DO NOT RESUSCITATE with trial of intubation. #. Atrial fibrillation -Continue home meds #. Type 2 diabetes -On sliding scale insulin #.Congestive heart failure with preserved EF (60%) Last echo was 04/06 read by . Showed severe concentric LVH with preserved ejection fraction Continue with Lasix, spironolactone, losartan, as well as replacement of electrolyte medications. #. UTI Continue Keflex #.Hypertension -Continue home meds #. Hyperlipidemia -Continue atorvastatin, fenofibrate #.Ankylosing spondylitis -Continue Tylenol #.LEEANN on CPAP -Use home CPAP, on LEEANN protocol -DVT prophy: Teds, on eliquis Vital Signs Vital Signs Date Time Temp Pulse Resp B/P (MAP) Pulse Ox O2 Delivery O2 Flow Rate FiO2 05/05/19 19:45 86 142/65 (90) 97 05/05/19 19:16 98.9 05/05/19 16:49 22 Nasal Cannula 2.0 Laboratory Data Labs 24H Laboratory Tests 2 05/05/19 17:35: Immature Granulocyte % (Auto) 0.6, White Blood Count 12.3H, Red Blood Count 3.47L, Hemoglobin 9.8L, Hematocrit 30.3L, Mean Corpuscular Volume 87.3, Mean Corpuscular Hemoglobin 28.2, Mean Corpuscular Hemoglobin Concent 32.3, Red Cell Distribution Width 15.4H, Platelet Count 290, Neutrophils (%) (Auto) 77.4H, Lymphocytes (%) (Auto) 13.6L, Monocytes (%) (Auto) 7.9H, Eosinophils (%) (Auto) 0.3, Basophils (%) (Auto) 0.2, Neutrophils # (Auto) 9.5H, Lymphocytes # (Auto) 1.7, Monocytes # (Auto) 1.0H, Eosinophils # (Auto) 0.0, Basophils # (Auto) 0.0, Nucleated Red Blood Cells % (auto) 0.0, Urine Appearance CLEAR, Urine Color YELLOW, Urine pH 7.0, Urine Specific [place] 1.006, Urine Protein NEGATIVE, Urine Glucose (UA) NEGATIVE, Urine Ketones NEGATIVE, Urine Urobilinogen 0.2, Urine Bilirubin NEGATIVE, Urine Leukocyte Esterase 2+H, Urine Blood 1+H, Urine Nitrite NEGATIVE, Urine WBC (Auto) 7H, Urine RBC (Auto) 8H, Urine Hyaline Casts (Auto) 0, Urine Bacteria (Auto) NEGATIVE, Urine Squamous Epithelial Cells 0, Urine Yeast-Like Cells (Auto) SMALLH, Urine Sperm (Auto) , Anion Gap 5L, Glomeru lar Filtration Rate > 60.0, Lactic Acid Level 1.3, Calcium Level 8.8, Aspartate Amino Transf (AST/SGOT) 14, Alanine Aminotransferase (ALT/SGPT) 9L, Alkaline Phosphatase 77, Total Bilirubin 0.4, Direct Bilirubin 0.3H, Total Protein 6.1L, Albumin 2.0L, Albumin/Globulin Ratio 0.49L 05/05/19 19:44: Ammonia 22 CBC/BMP Laboratory Tests 05/05/19 17:35 Red Blood Count 3.47 L, Mean Corpuscular Volume 87.3, Mean Corpuscular Hemoglobin 28.2, Mean Corpuscular Hemoglobin Concent 32.3, Red Cell Distribution Width 15.4 H, Neutrophils (%) (Auto) 77.4 H, Lymphocytes (%) (Auto) 13.6 L, Monocytes (%) (Auto) 7.9 H, Eosinophils (%) (Auto) 0.3, Basophils (%) (Auto) 0.2, Neutrophils # (Auto) 9.5 H, Lymphocytes # (Auto) 1.7, Monocytes # (Auto) 1.0 H, Eosinophils # (Auto) 0.0, Basophils # (Auto) 0.0 Microbiology Microbiology 05/05/19 Blood Culture, Received Pending 05/05/19 Blood Culture, Received Pending Home Medications Scheduled Apixaban (Eliquis) 2.5 Mg Tablet, 2.5 MG PO BID Atorvastatin Calcium (Atorvastatin Calcium) 40 Mg Tab, 40 MG PO QHS Cephalexin (Keflex) 500 Mg Capsule, 500 MG PO BID Ergocalciferol (Vitamin D2) (Drisdol) 50,000 Unit Capsule, 50,000 UNIT PO QWEEK SUNDAYS Fenofibrate Nanocrystallized (Fenofibrate) 145 Mg Tab, 145 MG PO DAILY Furosemide (Lasix) 20 Mg Tablet, 20 MG PO DAILY Gabapentin (Gabapentin) 300 Mg Capsule, 300 MG PO TID Insulin Human Lispro (Humalog) 1 Units/0.01 Ml Inj, 0 SC AC PER SLIDING SCALE L.acidoph/L.bulg/B.bif/S.therm (Bacid Caplet) 1 Tab Tab, 1 TAB PO BID Loratadine (Loratadine) 10 Mg Tablet, 10 MG PO QHS Losartan Potassium (Losartan Potassium) 25 Mg Tablet, 12.5 MG PO DAILY Magnesium Oxide (Magnesium Oxide) 400 Mg Tab, 400 MG PO BID Pantoprazole Sodium (Pantoprazole Sodium) 40 Mg Tablet.dr, 40 MG PO BID Potassium Chloride (Potassium Chloride) 10 Meq Tab.er.prt, 10 MEQ PO BID Sodium Chloride (Sodium Chloride) 1 Gm Tablet, 1 GM PO BID Solifenacin Succinate (Solifenacin Succinate) 5 Mg Tablet, 10 MG PO QHS Spironolactone (Spironolactone) 25 Mg Tablet, 12.5 MG PO DAILY Scheduled PRN Acetaminophen (Acetaminophen ER) 650 Mg Tablet.er, 650 MG PO Q8H PRN for PAIN Baclofen (Baclofen) 20 Mg Tablet, 10 MG PO TID PRN for MUSCLE SPASMS Bisacodyl (Bisacodyl) 10 Mg Sup, 10 MG ID DAILY PRN for CONSTIPATION Clotrimazole (Clotrimazole) 1 % Cre, 1 DOSE TOP BID PRN for RASH/ITCHING APPLY TO GROIN AREA Docusate Sodium (Docusate Sodium) 100 Mg Capsule, 100 MG PO BID PRN for CONSTIPATION Nitroglycerin (Nitrostat) 0.4 Mg Subl, 0.4 MG SL NITRO PRN for CHEST PAIN Nystatin (Nystatin Powder) 100,000 Unit/Gm Pow, 1 DOSE TOP BID PRN for RASH/ITCHING APPLY TO GROIN AREA Polyethylene Glycol 3350 (Miralax) 119 Gm Powder, 17 GM PO DAILY PRN for C ONSTIPATION dilute in 8 ounces of water or juice Simethicone (Simethicone) 180 Mg Capsule, 180 MG PO QID PRN for GAS PAIN Allergies Coded Allergies: Sulfa (Sulfonamide Antibiotics) (Verified Allergy, Intermediate, hives, ) alcohol (Verified Allergy, Intermediate, soap rash, 05/05/19) carisoprodol (Verified Allergy, Intermediate, hives, 05/05/19) gum mastic (Verified Allergy, Intermediate, soap rash, 05/05/19) purell mosture therapy latex (Verified Allergy, Intermediate, rash, 05/05/19) methyl salicylate (Verified Allergy, Intermediate, soap rash, 05/05/19) methylparaben (Verified Allergy, Intermediate, hives, 05/05/19) morphine (Verified Allergy, Intermediate, HIVES RASH AT SITE LIKELY HISTAMINE RELEASE, 05/05/19) storax (Verified Allergy, Intermediate, soap rash, 05/05/19) SOO Inhibitors (Verified Allergy, Unknown, 05/05/19) TAPE (Verified Allergy, Unknown, STERISTRIPS, 05/05/19) hydrochlorothiazide (Verified Allergy, Unknown, unsure of reaction, 05/05/19) nitrofurantoin (Verified Adverse Reaction, Mild, diarrhea, 05/05/19) A-FIB/CHADSVASC A-FIB History Current/History of A-Fib/PAF?: Yes Current PO Anticoag Therapy: Yes GME ATTESTATION GME ATTESTATION My faculty preceptor for this patient encounter was physically present during the encounter and was fully available. All aspects of the patient interview, examination, medical decision making process, and medical care plan development were reviewed and approved by the faculty preceptor. The faculty preceptor is aware and concurs with the plan as stated in the body of this note and will attest to such by his/her cosignature. ATTENDING NOTE I personally performed a history and physical examination of the patient and discussed the management with the resident. I reviewed the resident's note and agree with the documented findings and plan of care with the following addendum. As per daughter also had several episodes of diarrhea and complained of ab dominal pain in last 2 days so will get a CT abdomen and pelvis. If has watery stools will also get a GI panel CHANEL DANIEL DO May 05, 2019 22:04 ATIYA HUTCHINSON MD May 06, 2019 20:00
[2019-05-05 22:59] VITALS: BP 92/73
[2019-05-05] MEDS ORDERED: NITROGLYCERIN 0.4 MG SUBL TABLET SL STA (23:07)
[2019-05-05] MEDS ORDERED: NS 500 ML IV ONE (23:15)
[2019-05-05] MEDS ORDERED: NS 1,000 ML IV SCH (23:45)
[2019-05-05 23:55] LABS: CK-MB VALUE MASS 1.3 NG/ML (<3.6); MB/CK RELATIVE INDEX 2.41 (< OR =4); TROPONIN I 0.09 NG/ML (< 0.10)
[2019-05-06] MEDS ORDERED: GASTROGRAFIN SOLUTION 30ML (Q9963) As Ordered ONE (00:04)
[2019-05-06] MEDS: GASTROGRAFIN SOLUTION 30ML PO SCH ×2 (00:12→00:35)
[2019-05-06] MEDS ORDERED: ISOVUE-370 76% 100ML VIAL (Q9967) As Ordered ONE (00:56)
[2019-05-06] MEDS: LORATADINE 10 MG TAB PO SCH ×2 (01:28→20:53)
[2019-05-06] MEDS: PANTOPRAZOLE 40MG TAB (PROTONIX) PO SCH ×3 (01:28→20:54)
[2019-05-06] MEDS: ATORVASTATIN 20 MG TAB PO SCH ×2 (01:28→20:54)
[2019-05-06] MEDS: LACTOBACILLUS ACIDOPHILUS CAP (BACID) PO SCH ×3 (01:28→20:53)
[2019-05-06] MEDS: SODIUM CHLORIDE 1 GM TAB PO SCH ×3 (01:28→20:53)
[2019-05-06] MEDS: SOLIFENACIN 5 MG TAB PO SCH ×2 (01:28→20:53)
[2019-05-06] MEDS: APIXABAN 2.5 MG TAB (ELIQUIS) PO SCH ×3 (01:29→20:53)
[2019-05-06] MEDS: POTASSIUM CHLORIDE 10 MEQ SR TABLET PO SCH ×3 (01:29→20:53)
[2019-05-06] MEDS: MAGNESIUM OXIDE 400 MG TAB (MAG-OX) PO SCH ×3 (01:29→20:54)
[2019-05-06] MEDS: CEPHALEXIN 500 MG CAP PO SCH ×3 (01:29→20:53)
[2019-05-06] MEDS: ACETAMINOPHEN TAB 650MG DOSE (2X325MG) PO PRN (02:09)
--- NOTE | 2019-05-06 03:06 | REPVR ---
EXAM: CT Abdomen and Pelvis With Contrast EXAM DATE/TIME: 05/06/2019 1:53 AM CLINICAL HISTORY: 73 years old, male; Abdominal pain; Generalized TECHNIQUE: Imaging protocol: Computed tomography of the abdomen and pelvis with intravenous contrast. Radiation optimization: All CT scans at this facility use at least one of these dose optimization techniques: automated exposure control; mA and/or kV adjustment per patient size (includes targeted exams where dose is matched to clinical indication); or iterative reconstruction. Contrast material: ISOVUE 370; Contrast volume: 100 ml; Contrast route: IV; COMPARISON: CT ABD/PEL W/IV ORAL CONTRAS 04/03/2019 11:48 AM Study limitations: Evaluation through the pelvis is partially nondiagnostic, secondary to streak artifact from right hip hardware. Image quality is slightly degraded by positioning of the patient's arms alongside the body wall resulting in beam hardening artifacts. FINDINGS: LUNG BASES: Mild dependent atelectasis. Trace amount of pleural fluid posteriorly at the left costophrenic angle. VASCULAR: Slight prominence of the cardiac atria. Right sided pacemaker lead noted. No abdominal aortic aneurysm, dissection, or retroperitoneal hematoma. Mild atherosclerosis. IVC filter noted in place. PERITONEAL : No free air or conclusive free fluid. GI: No hiatal hernia. The stomach is not sufficiently distended for complete diagnostic evaluation by this exam. If there are gastric symptoms, consider dedicated evaluation. Small bowel loops in the anterior central abdomen are slightly distended with contrast, to 3 cm in diameter. No conclusive focal point of transition is seen. This appearance could be secondary to ileus or peristalsis. If there is possibility for developing or partial obstruction, consider a small bowel follow-through or radiographic followup. The terminal ileum appears slightly thick walled. This could be artifact secondary to insufficient distention, clinical correlation for terminal ileitis. No mesenteric lymphadenopathy by size criteria. Portions of the colon and rectum appear slightly thick walled with mild mucosal enhancement. There is mild perirectal stranding. Findings are suspicious for proctocolitis. Inflammatory bowel disease may be a possibility with these findings. No evidence of acute diverticulitis. The appendix is not visualized. HEPATOBILIARY, PANCREAS, SPLEEN: The liver is not enlarged. Partially contracted gallbladder. The gallbladder appears slightly thickwalled. Mild cholecystitis cannot be excluded on this exam. If there are symptoms related to the gallbladder, consider ultrasound. No calcified gallstones or biliary dilation. Pancreatic parenchymal calcifications are noted, consistent with sequela of chronic pancreatitis. There is hypoplastic appearance of the pancreas. No pancreatic inflammation. Spleen not enlarged. ADRENALS, KIDNEYS, BLADDER, RETROPERITONEAL: Adrenals within normal limits. No hydronephrosis. Slight hypoenhancement of the left kidney compared to the right. Mild nonspecific perinephric stranding. Any possibility for infection to be correlated with urinalysis. The urinary bladder is partly decompressed by suprapubic catheter. The urinary bladder appears slightly thick walled. Clinical correlation for cystitis. There is gas within the urinary bladder, likely iatrogenic. Enlarged prostate partially obscured by streak artifact. Clinical correlation and followup is advised. Prostate or bladder mass cannot be excluded by this exam. MUSCULOSKELETAL: Postoperative mesh repair of the anterior abdominal wall noted. There is a 12 cm anterior abdominal wall subcutaneous slightly thick walled fluid collection again noted. Infected fluid cannot be excluded. This is in contact with the mesh. Left chest wall implanted pacemaker noted. Mild body wall edema. Curvature of the spine. Degenerative changes of the spine and pelvis noted. Right hip replacement incompletely evaluated, extending below the level of imaging. Osteoarthritic changes of the left. No acute fracture seen. IMPRESSION: Findings are suspicious for proctocolitis. Gastrointestinal findings and recommendations discussed above in detail. Indeterminate appearance of the gallbladder. If there are symptoms, consider ultrasound. Any possibility for urinary tract infection/cystitis to be correlated with urinalysis and culture. Enlarged prostate. Clinical correlation and followup is advised. 12 cm anterior abdominal wall subcutaneous fluid collection again noted inseparable from an anterior abdominal wall mesh repair. Infection cannot be excluded. Other findings and study limitations discussed above. Electronically signed by: Inder Starr On 05/06/2019 03:05:17 AM
[2019-05-06 05:36] LABS: HEMATOCRIT 26.7 % (42.0-52.0); HEMOGLOBIN 8.9 g/dl (13.5-17.5); MEAN CORPUSCULAR HGB CONC 33.3 g/dl (32.0-36.5); PLATELET COUNT, AUTOMATED 238 10^3/uL (150-450); RED BLOOD COUNT 3.07 10^6/uL (4.30-6.10); WHITE BLOOD COUNT 7.7 10^3/uL (4.0-10.0)
[2019-05-06 05:58] LABS: BLOOD UREA NITROGEN 20 MG/DL (7-18); CALCIUM LEVEL 8.3 MG/DL (8.8-10.2); CARBON DIOXIDE LEVEL 28 MEQ/L (21-32); CHLORIDE LEVEL 106 MEQ/L (98-107); CREATININE FOR GFR 1.02 MG/DL (0.70-1.30); GLOMERULAR FILTRATION RATE > 60.0 (>42); GLUCOSE, FASTING 125 MG/DL (70-100); POTASSIUM SERUM 4.1 MEQ/L (3.5-5.1); SODIUM LEVEL 138 MEQ/L (136-145); TROPONIN I 0.08 NG/ML (< 0.10)
[2019-05-06 06:00] VITALS: BP 96/67
--- NOTE | 2019-05-06 06:56 | ECGEPIP ---
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 WITH UNDERLYING CONDUCTION DISEASE WHOULD BE SUSPICOUS OF AV BLOCK WITH ACCEL ESCAPE RHYTHM RIGHT AXIS DEVIATION LPFB RIGHT BUNDLE BRANCH BLOCK POSSIBLE OLD SEPTAL HI LOW VOLTAGE GENERALIZED CONTINUES NSSTTW CHANGES APPEAR MORE MAKED QTC AGAIN PROLONGED C/W 05/05/19 19:40 Electronically Signed on 05-06-2019 6:55:51 EDT by Carissa Limon
[2019-05-06] MEDS ORDERED: MAG SULF 1GM/100ML (MAG RUN) 1 GM in APPROPRIATE DILUENT 1 EA IV ONE (07:00)
--- NOTE | 2019-05-06 07:18 | ECGEPIP ---
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
[2019-05-06 07:45] VITALS: BP 98/66
[2019-05-06] MEDS: LOSARTAN 25 MG TAB PO SCH (08:28)
[2019-05-06] MEDS: HumaLOG INSULIN (NovoLOG) PER UNIT SC SCH ×4 (08:35→20:46)
[2019-05-06] MEDS: SPIRONOLACTONE 12.5MG PER 1/2 TABLET PO SCH (08:35)
[2019-05-06] MEDS: FUROSEMIDE 20 MG TAB PO SCH (08:36)
[2019-05-06] MEDS: FENOFIBRATE 145 MG TAB (TRICOR) PO SCH (08:36)
[2019-05-06 08:39] VITALS: O2SAT 99
[2019-05-06] MEDS: SIMETHICONE 80 MG CHEW TAB PO PRN ×2 (08:39→19:46)
[2019-05-06] MEDS ORDERED: MAGNESIUM CHLORIDE 64 MG TABCR (SLO MAG) PO SCH (09:00)
[2019-05-06 14:00] VITALS: BP 111/73
--- NOTE | 2019-05-06 17:27 | IPNPDOC ---
Subjective Date Seen The patient was seen on 05/06/19. 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 WBC back to baseline at 7.7 (12.3) 05/05 CT AP: Findings are suspicious for proctocolitis. Gastrointestinal findings and recommendations discussed above in detail. Indeterminate appearance of the gallbladder. If there are symptoms, consider ultrasound. Any possibility for urinary tract infection/cystitis to be correlated with urinalysis and culture. Enlarged prostate. Clinical correlation and followup is advised. 12 cm anterior abdominal wall subcutaneous fluid collection again noted inseparable from an anterior abdominal wall mesh repair. Infection cannot be excluded. 05/05 CT head, CXR NAD (2) Toxic metabolic encephalopathy Status: Acute Response to Treatment: Improving Problem Text: as per GE 05/05 BCX2 P (3) Indwelling catheter present on admission Status: Chronic Problem Text: c recurrent UTI D5/10 cephalo po 04/27 UCX: ROUTINE CULTURE RESULTS URINE CULTURE Final Organism 1 ESCHERICHIA COLI COLONY COUNT >100,000 CFU/ml Organism 2 ENTEROCOCCUS FAECALIS COLONY COUNT >100,000 CFU/ml FULL REPORT IN LAB NOTES (eCW and Medent). CONTINUED ON NEXT PAGE 05/02/19 0538 [place] [address] Olman Will M.D. Cattle Broker Laboratory INQUIRY Report SPEC: [id number] PATIENT: TANIA HESS [id number] (Continued) Procedure Result Site URINE CULTURE Final (continued) E COLI ENT FAECAL RX M.I.C. RX M.I.C. ----- --------- ----- --------- EXTD BRD SPCTRM BETA LACTAMASE - TETRACYCLINE R >=16 PENICILLIN G S 4 TRIMETHOPRIM/SULFAMETHOXAZOLE S <=20 AMPICILLIN R >=32 S <=2 ERYTHROMYCIN I 2 GENTAMICIN S <=1 NITROFURANTOIN S <=16 S 32 CEFAZOLIN S 8 LEVOFLOXACIN R >=8 S 2 CIPROFLOXACIN I 2 TOBRAMYCIN S <=1 VANCOMYCIN S 2 CEFTRIAXONE S <=1 CEFTAZIDIME S <=1 AMPICILLIN/SULBACTAM R >=32 PIPERACILLIN/TAZOBACTAM S <=4 AZTREONAM S <=1 ERTAPENEM S <=0.5 MEROPENEM S <=0.25 TIGECYCLINE S <=0.5 LINEZOLID (ZYVOX) S 2 * CEFEPIME S <=1 (4) Diastolic CHF Status: Chronic Problem Text: Euvolemic on HD frank 12.5, los 12.5, fur 20 (5) DM2 (diabetes mellitus, type 2) Status: Chronic (6) HTN (hypertension) Status: Chronic (7) SIADH (syndrome of inappropriate ADH production) Status: Chronic Response to Treatment: Stable Problem Text: 05/06 Na 138 on NaCL 1 gm BID and 1200 FR Plan/VTE VTE Prophylaxis Ordered?: Yes VS, I&O, 24H, Fishbone Vital Signs/I&O Vital Signs Date Time Temp Pulse Resp B/P (MAP) Pulse Ox O2 Delivery O2 Flow Rate FiO2 05/06/19 14:00 96.3 109 16 111/73 (86) 100 2.0 05/06/19 08:39 Nasal Cannula I&O- Last 24 Hours up to 6 AM 05/06/19 06:00 Intake Total 1000 ml Output Total 2150 ml Balance -1150 ml Laboratory Data 24H LABS Laboratory Tests 2 05/05/19 17:35: Immature Granulocyte % (Auto) 0.6, White Blood Count 12.3H, Red Blood Count 3.47L, Hemoglobin 9.8L, Hematocrit 30.3L, Mean Corpuscular Volume 87.3, Mean Corpuscular Hemoglobin 28.2, Mean Corpuscular Hemoglobin Concent 32.3, Red Cell Distribution Width 15.4H, Platelet Count 290, Neutrophils (%) (Auto) 77.4H, Lymphocytes (%) (Auto) 13.6L, Monocytes (%) (Auto) 7.9H, Eosinophils (%) (Auto) 0.3, Basophils (%) (Auto) 0.2, Neutrophils # (Auto) 9.5H, Lymphocytes # (Auto) 1.7, Monocytes # (Auto) 1.0H, Eosinophils # (Auto) 0.0, Basophils # (Auto) 0.0, Nucleated Red Blood Cells % (auto) 0.0, Urine Appearance CLEAR, Urine Color YELLOW, Urine pH 7.0, Urine Specific [place] 1.006, Urine Protein NEGATIVE, Urine Glucose (UA) NEGATIVE, Urine Ketones NEGATIVE, Urine Urobilinogen 0.2, Urine Bilirubin NEGATIVE, Urine Leukocyte Esterase 2+H, Urine Blood 1+H, Urine Nitrite NEGATIVE, Urine WBC (Auto) 7H, Urine RBC (Auto) 8H, Urine Hyaline Casts (Auto) 0, Urine Bacteria (Auto) NEGATIVE, Urine Squamous Epithelial Cells 0, Urine Yeast-Like Cells (Auto) SMALLH, Urine Sperm (Auto) , Anion Gap 5L, Glomerular Filtration Rate > 60.0, Lactic Acid Level 1.3, Calcium Level 8.8, Aspartate Amino Transf (AST/SGOT) 14, Alanine Aminotransferase (ALT/SGPT) 9L, Alkaline Phosphatase 77, Total Bilirubin 0.4, Direct Bilirubin 0.3H, Total Protein 6.1L, Albumin 2.0L, Albumin/Globulin Ratio 0.49L 05/05/19 19:44: Ammonia 22 05/05/19 22:52: Bedside Glucose (Misc Panel) 113H 05/05/19 23:18: Bedside Glucose (Misc Panel) 109 05/05/19 23:22: Total Creatine Kinase 54, Creatine Kinase MB 1.3, Creatine Kinase MB Relative Index 2.41, Troponin I 0.09 05/06/19 05:17: Troponin I 0.08, Nucleated Red Blood Cells % (auto) 0.0, Anion Gap 4L, Glomerular Filtration Rate > 60.0, Blood Urea Nitrogen 20H, Creatinine 1.02, Sodium Level 138, Potassium Level 4.1, Chloride Level 106, Carbon Dioxide Level 28, Calcium Level 8.3L, Magnesium Level 1.5L 05/06/19 12:10: Bedside Glucose (Misc Panel) 218H 05/06/19 16:26: Bedside Glucose (Misc Panel) 291H CBC/BMP Laboratory Tests 05/05/19 17:35 Red Blood Count 3.47 L, Mean Corpuscular Volume 87.3, Mean Corpuscular Hemoglobin 28.2, Mean Corpuscular Hemoglobin Concent 32.3, Red Cell Distribution Width 15.4 H, Neutrophils (%) (Auto) 77.4 H, Lymphocytes (%) (Auto) 13.6 L, Monocytes (%) (Auto) 7.9 H, Eosinophils (%) (Auto) 0.3, Basophils (%) (Auto) 0.2, Neutrophils # (Auto) 9.5 H, Lymphocytes # (Auto) 1.7, Monocytes # (Auto) 1.0 H, Eosinophils # (Auto) 0.0, Basophils # (Auto) 0.0 05/06/19 05:17 Red Blood Count 3.07 L, Mean Corpuscular Volume 87.0, Mean Corpuscular Hemog lobin 29.0, Mean Corpuscular Hemoglobin Concent 33.3, Red Cell Distribution Width 15.3 H, Calcium Level 8.3 L Microbiology Microbiology 05/05/19 Blood Culture, Received Pending 05/05/19 Blood Culture, Received Pending Jem Goff M.D. May 06, 2019 17:27
[2019-05-06] MEDS: NYSTATIN 100,000 UNITS/GM TOPICAL PWD 15 GM TOP SCH (20:54)
[2019-05-06 22:00] VITALS: BP 105/64; O2SAT 100
[2019-05-07] MEDS: ONDANSETRON 4MG/2ML VIAL (J2405) IV PRN ×2 (00:22→09:50)
[2019-05-07 06:00] VITALS: BP 132/69
[2019-05-07 07:06] LABS: BASO % 0.1 % (0.0-1.0); EOS % 0.4 % (0.0-3.0); HEMATOCRIT 28.4 % (42.0-52.0); HEMOGLOBIN 9.4 g/dl (13.5-17.5); LYMPH # 1.9 10^3/uL (1.5-5.0); LYMPH % 22.7 % (24.0-44.0); MEAN CORPUSCULAR HEMOGLOBIN 28.7 pg (27.0-33.0); MEAN CORPUSCULAR HGB CONC 33.1 g/dl (32.0-36.5); MEAN CORPUSCULAR VOLUME 86.9 fl (80.0-96.0); MONO % 12.1 % (0.0-5.0); NEUTROPHILS # 5.2 10^3/uL (1.5-8.5); NEUTROPHILS % 64.1 % (36.0-66.0); PLATELET COUNT, AUTOMATED 279 10^3/uL (150-450); RED BLOOD COUNT 3.27 10^6/uL (4.30-6.10); WHITE BLOOD COUNT 8.2 10^3/uL (4.0-10.0)
[2019-05-07 07:30] LABS: ALBUMIN 1.8 GM/DL (3.2-5.2); ALT/SGPT 10 U/L (12-78); BILIRUBIN,TOTAL 0.4 MG/DL (0.2-1.0); BLOOD UREA NITROGEN 18 MG/DL (7-18); CALCIUM LEVEL 8.5 MG/DL (8.8-10.2); CARBON DIOXIDE LEVEL 28 MEQ/L (21-32); CHLORIDE LEVEL 105 MEQ/L (98-107); CREATININE FOR GFR 1.12 MG/DL (0.70-1.30); GLOMERULAR FILTRATION RATE > 60.0 (>42); GLUCOSE, FASTING 206 MG/DL (70-100); MAGNESIUM LEVEL 1.6 MG/DL (1.8-2.4); POTASSIUM SERUM 4.3 MEQ/L (3.5-5.1); SODIUM LEVEL 138 MEQ/L (136-145); TOTAL PROTEIN 5.9 GM/DL (6.4-8.2)
[2019-05-07] MEDS: HumaLOG INSULIN (NovoLOG) PER UNIT SC SCH ×4 (09:50→20:21)
[2019-05-07] MEDS: SODIUM CHLORIDE 1 GM TAB PO SCH ×2 (10:35→20:20)
[2019-05-07] MEDS: LACTOBACILLUS ACIDOPHILUS CAP (BACID) PO SCH ×2 (10:35→20:19)
[2019-05-07] MEDS: FENOFIBRATE 145 MG TAB (TRICOR) PO SCH (10:36)
[2019-05-07] MEDS: PANTOPRAZOLE 40MG TAB (PROTONIX) PO SCH ×2 (10:36→20:21)
[2019-05-07] MEDS: APIXABAN 2.5 MG TAB (ELIQUIS) PO SCH ×2 (10:36→20:19)
[2019-05-07] MEDS: SPIRONOLACTONE 12.5MG PER 1/2 TABLET PO SCH (10:36)
[2019-05-07] MEDS: CEPHALEXIN 500 MG CAP PO SCH ×2 (10:36→20:20)
[2019-05-07] MEDS: FUROSEMIDE 20 MG TAB PO SCH (10:37)
[2019-05-07] MEDS: POTASSIUM CHLORIDE 10 MEQ SR TABLET PO SCH ×2 (10:37→20:20)
[2019-05-07] MEDS: MAGNESIUM OXIDE 400 MG TAB (MAG-OX) PO SCH ×2 (10:37→20:21)
[2019-05-07] MEDS: LOSARTAN 25 MG TAB PO SCH (10:41)
[2019-05-07] MEDS: NYSTATIN 100,000 UNITS/GM TOPICAL PWD 15 GM TOP SCH ×2 (11:12→20:19)
--- NOTE | 2019-05-07 12:27 | IPNPDOC ---
Subjective Date Seen The patient was seen on 05/07/19. Subjective Chief Complaint/HPI AMS Events since last encounter daughter at bedside. She is noting improvement in mentation. Patient c/o nausea and bile-like vomiting this am. Patient declined lunch. Constitutional: Denies: Chills, Fever, Night Sweats Pulmonary: Denies: Dyspnea, Cough Cardiovascular: Denies: Chest Pain, Palpitations, Orthopnea, Paroxysmal Noc. 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 WBC back to baseline at 7.7 (12.3) 05/07 RUQ US normal 05/05 CT AP: Findings are suspicious for proctocolitis. Gastrointestinal findings and recommendations discussed above in detail. Indeterminate appearance of the gallbladder. If there are symptoms, consider ultrasound. Any possibility for urinary tract infection/cystitis to be correlated with urinalysis and culture. Enlarged prostate. Clinical correlation and followup is advised. 12 cm anterior abdominal wall subcutaneous fluid collection again noted inseparable from an anterior abdominal wall mesh repair. Infection cannot be excluded. 05/05 CT head, CXR NAD (2) Toxic metabolic encephalopathy Status: Acute Response to Treatment: Improving Problem Text: as per GE 05/05 BCX2 NG (3) Indwelling catheter present on admission Status: Chronic Problem Text: c recurrent UTI D6/10 cephalo po 04/27 UCX: ROUTINE CULTURE RESULTS URINE CULTURE Final Organism 1 ESCHERICHIA COLI COLONY COUNT >100,000 CFU/ml Organism 2 ENTEROCOCCUS FAECALIS COLONY COUNT >100,000 CFU/ml FULL REPORT IN LAB NOTES (eCW and Medent). CONTINUED ON NEXT PAGE 05/02/[address] [address] Olman Will M.D. Voice Over Artist Laboratory INQUIRY Report SPEC: [id number] PATIENT: TANIA HESS [id number] (Continued) Procedure Result Site URINE CULTURE Final (continued) E COLI ENT FAECAL RX M.I.C. RX M.I.C. ----- --------- ----- --------- EXTD BRD SPCTRM BETA LACTAMASE - TETRACYCLINE R >=16 PENICILLIN G S 4 TRIMETHOPRIM/SULFAMETHOXAZOLE S <=20 AMPICILLIN R >=32 S <=2 ERYTHROMYCIN I 2 GENTAMICIN S <=1 NITROFURANTOIN S <=16 S 32 CEFAZOLIN S 8 LEVOFLOXACIN R >=8 S 2 CIPROFLOXACIN I 2 TOBRAMYCIN S <=1 VANCOMYCIN S 2 CEFTRIAXONE S <=1 CEFTAZIDIME S <=1 AMPICILLIN/SULBACTAM R >=32 PIPERACILLIN/TAZOBACTAM S <=4 AZTREONAM S <=1 ERTAPENEM S <=0.5 MEROPENEM S <=0.25 TIGECYCLINE S <=0.5 LINEZOLID (ZYVOX) S 2 * CEFEPIME S <=1 (4) Diastolic CHF Status: Chronic Response to Treatment: Stable Problem Text: Euvolemic on HD frank 12.5, los 12.5, fur 20 (5) DM2 (diabetes mellitus, type 2) Status: Chronic Response to Treatment: Stable Problem Text: BG 110-130s on HD SSLI (6) SIADH (syndrome of inappropriate ADH production) Status: Chronic Response to Treatment: Stable Problem Text: 05/07 Na 138 on NaCL 1 gm BID and 1200 FR (7) Physical deconditioning Problem Text: 05/06 [facility] Plan/VTE VTE Prophylaxis Ordered?: Yes VS, I&O, 24H, Fishbone Vital Signs/I&O Vital Signs Date Time Temp Pulse Resp B/P (MAP) Pulse Ox O2 Delivery O2 Flow Rate FiO2 05/07/19 10:41 114/55 05/07/19 06:00 98.0 112 17 100 05/06/19 22:00 NIPPV (BIPAP/CPAP) 2.0 I&O- Last 24 Hours up to 6 AM 05/07/19 05:59 Intake Total 1320 ml Output Total 2700 ml Balance -1380 ml Laboratory Data 24H LABS Laboratory Tests 2 05/06/19 16:26: Bedside Glucose (Misc Panel) 291H 05/06/19 20:28: Bedside Glucose (Misc Panel) 220H 05/07/19 06:37: Immature Granulocyte % (Auto) 0.6, White Blood Count 8.2, Red Blood Count 3.27L, Hemoglobin 9.4L, Hematocrit 28.4L, Mean Corpuscular Volume 86.9, Mean Corpuscular Hemoglobin 28.7, Mean Corpuscular Hemoglobin Concent 33.1, Red Cell Distribution Width 15.3H, Platelet Count 279, Neutrophils (%) (Auto) 64.1, L ymphocytes (%) (Auto) 22.7L, Monocytes (%) (Auto) 12.1H, Eosinophils (%) (Auto) 0.4, Basophils (%) (Auto) 0.1, Neutrophils # (Auto) 5.2, Lymphocytes # (Auto) 1.9, Monocytes # (Auto) 1.0H, Eosinophils # (Auto) 0.0, Basophils # (Auto) 0.0, Nucleated Red Blood Cells % (auto) 0.0, Anion Gap 5L, Glomerular Filtration Rate > 60.0, Blood Urea Nitrogen 18, Creatinine 1.12, Sodium Level 138, Potassium Level 4.3, Chloride Level 105, Carbon Dioxide Level 28, Calcium Level 8.5L, Aspartate Amino Transf (AST/SGOT) 11, Alanine Aminotransferase (ALT/SGPT) 10L, Alkaline Phosphatase 72, Total Bilirubin 0.4, Total Protein 5.9L, Albumin 1.8L, Magnesium Level 1.6L, Albumin/Globulin Ratio 0.44L CBC/BMP Laboratory Tests 05/07/19 06:37 Red Blood Count 3.27 L, Mean Corpuscular Volume 86.9, Mean Corpuscular Hemoglobin 28.7, Mean Corpuscular Hemoglobin Concent 33.1, Red Cell Distribution Width 15.3 H, Neutrophils (%) (Auto) 64.1, Lymphocytes (%) (Auto) 22.7 L, Monocytes (%) (Auto) 12.1 H, Eosinophils (%) (Auto) 0.4, Basophils (%) (Auto) 0.1, Neutrophils # (Auto) 5.2, Lymphocytes # (Auto) 1.9, Monocytes # (Auto) 1.0 H, Eosinophils # (Auto) 0.0, Basophils # (Auto) 0.0, Calcium Level 8.5 L, Aspartate Amino Transf (AST/SGOT) 11, Alanine Aminotransferase (ALT/SGPT) 10 L, Alkaline Phosphatase 72, Total Bilirubin 0.4, Total Protein 5.9 L, Albumin 1.8 L Microbiology Microbiology 05/05/19 Blood Culture - Preliminary, Resulted No growth after 24 hours . All specim... 05/05/19 Blood Culture - Preliminary, Resulted No growth after 24 hours . All specim... Katarina Langford BUS INFO CONSULTANT May 07, 2019 12:27 Jem Goff M.D. May 07, 2019 19:07
[2019-05-07 14:00] VITALS: BP 135/71
[2019-05-07] MEDS: SIMETHICONE 80 MG CHEW TAB PO PRN (14:30)
--- NOTE | 2019-05-07 16:01 | REP ---
Clinical: Abdominal pain and vomiting. Technique: Real time alston scale and color evaluation using curved array transducer. Findings: The liver is heterogeneous, echogenic and demonstrates poor through transmission suggesting fatty infiltration although underlying hepatocellular disease cannot be excluded. The pancreas is incompletely evaluated due to interposed bowel gas. The gallbladder is grossly unremarkable and without wall thickening, pericholecystic fluid, or obvious gallstones. No biliary ductal dilatation is appreciated and the common bile duct measures 5.4 mm diameter. The right kidney is normal in reniform shape without hydronephrosis and measures 9.0 x 4.5 x 6.0 cm. No obvious ascites in the visualized right upper quadrant. Impression: Limited examination. Fatty infiltration to the liver and/or hepatocellular disease. Essentially normal appearance to the gallbladder and biliary system. Electronically Signed by Michael Man MD 05/07/2019 03:52 P
[2019-05-07 20:00] VITALS: BP 146/64
[2019-05-07] MEDS: SOLIFENACIN 5 MG TAB PO SCH (20:19)
[2019-05-07] MEDS: ATORVASTATIN 20 MG TAB PO SCH (20:19)
[2019-05-07] MEDS: ACETAMINOPHEN TAB 650MG DOSE (2X325MG) PO PRN (20:20)
[2019-05-07] MEDS: LORATADINE 10 MG TAB PO SCH (20:21)
[2019-05-08 06:00] VITALS: BP 140/63
[2019-05-08 07:14] LABS: BASO % 0.3 % (0.0-1.0); EOS # 0.1 10^3/uL (0.0-0.5); EOS % 0.7 % (0.0-3.0); HEMATOCRIT 29.1 % (42.0-52.0); HEMOGLOBIN 9.6 g/dl (13.5-17.5); MEAN CORPUSCULAR HEMOGLOBIN 28.5 pg (27.0-33.0); MEAN CORPUSCULAR VOLUME 86.4 fl (80.0-96.0); MONO # 0.8 10^3/uL (0.0-0.8); MONO % 11.3 % (0.0-5.0); NEUTROPHILS % 58.1 % (36.0-66.0); PLATELET COUNT, AUTOMATED 279 10^3/uL (150-450); RED BLOOD COUNT 3.37 10^6/uL (4.30-6.10); WHITE BLOOD COUNT 6.9 10^3/uL (4.0-10.0)
[2019-05-08 07:47] LABS: ALBUMIN 1.8 GM/DL (3.2-5.2); ALT/SGPT 6 U/L (12-78); BILIRUBIN,TOTAL 0.5 MG/DL (0.2-1.0); BLOOD UREA NITROGEN 15 MG/DL (7-18); CALCIUM LEVEL 9.1 MG/DL (8.8-10.2); CARBON DIOXIDE LEVEL 29 MEQ/L (21-32); CHLORIDE LEVEL 104 MEQ/L (98-107); CREATININE FOR GFR 1.07 MG/DL (0.70-1.30); GLOMERULAR FILTRATION RATE > 60.0 (>42); GLUCOSE, FASTING 169 MG/DL (70-100); MAGNESIUM LEVEL 1.6 MG/DL (1.8-2.4); SODIUM LEVEL 137 MEQ/L (136-145); TOTAL PROTEIN 6.4 GM/DL (6.4-8.2)
[2019-05-08] MEDS: SPIRONOLACTONE 12.5MG PER 1/2 TABLET PO SCH (09:38)
[2019-05-08] MEDS: SODIUM CHLORIDE 1 GM TAB PO SCH ×2 (09:39→22:12)
[2019-05-08] MEDS: FENOFIBRATE 145 MG TAB (TRICOR) PO SCH (09:39)
[2019-05-08] MEDS: FUROSEMIDE 20 MG TAB PO SCH (09:39)
[2019-05-08] MEDS: LOSARTAN 25 MG TAB PO SCH (09:39)
[2019-05-08] MEDS: LACTOBACILLUS ACIDOPHILUS CAP (BACID) PO SCH ×2 (09:40→22:04)
[2019-05-08] MEDS: ACETAMINOPHEN TAB 650MG DOSE (2X325MG) PO PRN ×2 (09:40→22:04)
[2019-05-08] MEDS: CEPHALEXIN 500 MG CAP PO SCH ×2 (09:40→22:06)
[2019-05-08] MEDS: POTASSIUM CHLORIDE 10 MEQ SR TABLET PO SCH ×2 (09:41→22:05)
[2019-05-08] MEDS: MAGNESIUM OXIDE 400 MG TAB (MAG-OX) PO SCH ×2 (09:41→22:06)
[2019-05-08] MEDS: PANTOPRAZOLE 40MG TAB (PROTONIX) PO SCH ×2 (09:41→22:05)
[2019-05-08] MEDS: NYSTATIN 100,000 UNITS/GM TOPICAL PWD 15 GM TOP SCH ×2 (09:42→22:06)
[2019-05-08] MEDS: APIXABAN 2.5 MG TAB (ELIQUIS) PO SCH ×2 (09:44→22:05)
[2019-05-08] MEDS: ONDANSETRON 4MG/2ML VIAL (J2405) IV PRN ×2 (09:50→22:06)
[2019-05-08] MEDS: HumaLOG INSULIN (NovoLOG) PER UNIT SC SCH ×4 (10:13→21:00)
--- NOTE | 2019-05-08 10:55 | IPNPDOC ---
Subjective Date Seen The patient was seen on 05/08/19. Subjective Chief Complaint/HPI AMS Events since last encounter Mild improvement in symptoms. Constitutional: Denies: Chills, Fever, Night Sweats Pulmonary: Denies: Dyspnea, Cough Cardiovascular: Denies: Chest Pain, Palpitations, Orthopnea, Paroxysmal Noc. Dyspnea, Lt Headedness Gastrointestinal: Reports: Nausea; Denies: Vomiting, Abdominal Pain, Diarrhea, Constipation Genitourinary: Denies: Dysuria, Frequency, Incontinence, Retention Psych: Reports: Mood Normal; Denies: Depression, Memory Issues Objective Physical Examination General Exam: Positive: Alert Eye Exam: Positive: PERRLA, Conjunctiva & lids normal Neck Exam: Negative: JVD Chest Exam: Positive: Clear to auscultation Heart Exam: Positive: Rate Normal Abdomen Exam: Positive: Normal bowel sounds, Soft Extremity Exam: Negative: Edema Assessment /Plan Problems (1) Gastroenteritis Status: Acute Response to Treatment: Improving 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 Symptoms slowly improving. Continue with anti-emetic prn. 05/07 AF. WBC back to baseline at 7.7 (12.3) 05/07 RUQ US normal 05/05 CT AP: Findings are suspicious for proctocolitis. Gastrointestinal findings and recommendations discussed above in detail. Indeterminate appearance of the gallbladder. If there are symptoms, consider ultrasound. Any possibility for urinary tract infection/cystitis to be correlated with urinalysis and culture. Enlarged prostate. Clinical correlation and followup is advised. 12 cm anterior abdominal wall subcutaneous fluid collection again noted inseparable from an anterior abdominal wall mesh repair. Infection cannot be excluded. 05/05 CT head, CXR NAD (2) Toxic metabolic encephalopathy Status: Acute Response to Treatment: Improving Problem Text: as per GE 05/05 BCX2 NG (3) Indwelling catheter present on admission Status: Chronic Problem Text: c recurrent UTI D6/10 cephalo po 04/27 UCX: ROUTINE CULTURE RESULTS URINE CULTURE Final Organism 1 ESCHERICHIA COLI COLONY COUNT >100,000 CFU/ml Organism 2 ENTEROCOCCUS FAECALIS COLONY COUNT >100,000 CFU/ml FULL REPORT IN LAB NOTES (eCW and Medent). CONTINUED ON NEXT PAGE 05/02/[address] [address] Olman Will M.D. Plant Protection Superintendent Laboratory INQUIRY Report SPEC: [id number] PATIENT: TANIA HESS [id number] (Continued) Procedure Result Site URINE CULTURE Final (continued) E COLI ENT FAECAL RX M.I.C. RX M.I.C. ----- --------- ----- --------- EXTD BRD SPCTRM BETA LACTAMASE - TETRACYCLINE R >=16 PENICILLIN G S 4 TRIMETHOPRIM/SULFAMETHOXAZOLE S <=20 AMPICILLIN R >=32 S <=2 ERYTHROMYCIN I 2 GENTAMICIN S <=1 NITROFURANTOIN S <=16 S 32 CEFAZOLIN S 8 LEVOFLOXACIN R >=8 S 2 CIPROFLOXACIN I 2 TOBRAMYCIN S <=1 VANCOMYCIN S 2 CEFTRIAXONE S <=1 CEFTAZIDIME S <=1 AMPICILLIN/SULBACTAM R >=32 PIPERACILLIN/TAZOBACTAM S <=4 AZTREONAM S <=1 ERTAPENEM S <=0.5 MEROPENEM S <=0.25 TIGECYCLINE S <=0.5 LINEZOLID (ZYVOX) S 2 * CEFEPIME S <=1 (4) Diastolic CHF Status: Chronic Response to Treatment: Stable Problem Text: Euvolemic on HD frank 12.5, los 12.5, fur 20 (5) DM2 (diabetes mellitus, type 2) Status: Chronic Response to Treatment: Stable Problem Text: BG 110-130s on HD SSLI (6) SIADH (syndrome of inappropriate ADH production) Status: Chronic Response to Treatment: Stable Problem Text: 05/07 Na 138 on NaCL 1 gm BID and 1200 FR (7) Physical deconditioning Problem Text: 05/06 [place]acute [place] Plan/VTE VTE Prophylaxis Ordered?: Yes Plan PFS to work on disposition. Patient has had repeated admissions and physical decline. VS, I&O, 24H, Fishbone Vital Signs/I&O Vital Signs Date Time Temp Pulse Resp B/P (MAP) Pulse Ox O2 Delivery O2 Flow Rate FiO2 05/08/19 09:39 112/56 05/08/19 06:00 98.4 108 21 100 05/08/19 03:40 NIPPV (BIPAP/CPAP) 05/07/19 20:00 2.0 I&O- Last 24 Hours up to 6 AM 05/08/19 06:00 Intake Total 820 ml Output Total 1825 ml Balance -1005 ml Laboratory Data 24H LABS Laboratory Tests 2 05/07/19 11:52: Bedside Glucose (Misc Panel) 111H 05/07/19 17:00: Bedside Glucose (Misc Panel) 132H 05/07/19 20:04: Bedside Glucose (Misc Panel) 174H 05/07/19 23:09: Bedside Glucose (Misc Panel) 166H 05/08/19 06:57: Immature Granulocyte % (Auto) 0.6, White Blood Count 6.9, Red Blood Count 3.37L, Hemoglobin 9.6L, Hematocrit 29.1L, Mean Corpuscular Volume 86.4, Mean Corpuscular Hemoglobin 28.5, Mean Corpuscular Hemoglobin Concent 33.0, Red Cell Distribution Width 15.1H, Platelet Count 279, Neutrophils (%) (Auto) 58.1, Lymphocytes (%) (Auto) 29.0, Monocytes (%) (Auto) 11.3H, Eosinophils (%) (Auto) 0.7, Basophils (%) (Auto) 0.3, Neutrophils # (Auto) 4.0, Lymphocytes # (Auto) 2.0, Monocytes # (Auto) 0.8, Eosinophils # (Auto) 0.1, Basophils # (Auto) 0.0, Nucleated Red Blood Cells % (auto) 0.0, Anion Gap 4L, Glomerular Filtration Rate > 60.0, Blood Urea Nitrogen 15, Creatinine 1.07, Sodium Level 137, Potassium Level 4.0, Chloride Level 104, Carbon Dioxide Level 29, Calcium Level 9.1, Aspartate Amino Transf (AST/SGOT) 14, Alanine Aminotransferase (ALT/SGPT) 6L, Alkaline Phosphatase 65, Total Bilirubin 0.5, Total Protein 6.4, Albumin 1.8L, Magnesium Level 1.6L, Albumin/Globulin Ratio 0.39L CBC/BMP Laboratory Tests 05/08/19 06:57 Red Blood Count 3.37 L, Mean Corpuscular Volume 86.4, Mean Corpuscular Hemoglobin 28.5, Mean Corpuscular Hemoglobin Concent 33.0, Red Cell Distribution Width 15.1 H, Neutrophils (%) (Auto) 58.1, Lymphocytes (%) (Auto) 29.0, Monocytes (%) (Auto) 11.3 H, Eosinophils (%) (Auto) 0.7, Basophils (%) (Auto) 0.3, Neutrophils # (Auto) 4.0, Lymphocytes # (Auto) 2.0, Monocytes # (Auto) 0.8, Eosinophils # (Auto) 0.1, Basophils # (Auto) 0.0, Calcium Level 9.1, Aspartate Amino Transf (AST/SGOT) 14, Alanine Aminotransferase (ALT/SGPT) 6 L, Alkaline Phosphatase 65, Total Bilirubin 0.5, Total Protein 6.4, Albumin 1.8 L Microbiology Microbiology 05/05/19 Blood Culture - Preliminary, Resulted No Growth after 48 hours. All Specime... 05/05/19 Blood Culture - Preliminary, Resulted No Growth after 48 hours. All Specime... Katarina Langford ACCOUNTING CONSULTANT May 08, 2019 10:55
[2019-05-08 14:00] VITALS: BP_SYST 124; BP_SYST 132; BP_DIAS 70; BP_DIAS 76
[2019-05-08 22:00] VITALS: BP 134/89
[2019-05-08] MEDS: ATORVASTATIN 20 MG TAB PO SCH (22:05)
[2019-05-08] MEDS: LORATADINE 10 MG TAB PO SCH (22:05)
[2019-05-08] MEDS: SOLIFENACIN 5 MG TAB PO SCH (22:26)
[2019-05-09 06:00] VITALS: BP 131/85
[2019-05-09 06:45] LABS: BASO % 0.3 % (0.0-1.0); EOS # 0.1 10^3/uL (0.0-0.5); EOS % 0.7 % (0.0-3.0); HEMATOCRIT 28.4 % (42.0-52.0); HEMOGLOBIN 9.3 g/dl (13.5-17.5); LYMPH # 2.1 10^3/uL (1.5-5.0); MEAN CORPUSCULAR HEMOGLOBIN 27.6 pg (27.0-33.0); MEAN CORPUSCULAR HGB CONC 32.7 g/dl (32.0-36.5); MEAN CORPUSCULAR VOLUME 84.3 fl (80.0-96.0); MONO # 0.7 10^3/uL (0.0-0.8); MONO % 10.4 % (0.0-5.0); NEUTROPHILS # 3.9 10^3/uL (1.5-8.5); NEUTROPHILS % 56.9 % (36.0-66.0); PLATELET COUNT, AUTOMATED 304 10^3/uL (150-450); RED BLOOD COUNT 3.37 10^6/uL (4.30-6.10); WHITE BLOOD COUNT 6.8 10^3/uL (4.0-10.0)
[2019-05-09 07:08] LABS: ALBUMIN 1.8 GM/DL (3.2-5.2); ALT/SGPT 7 U/L (12-78); BILIRUBIN,TOTAL 0.4 MG/DL (0.2-1.0); BLOOD UREA NITROGEN 14 MG/DL (7-18); CARBON DIOXIDE LEVEL 29 MEQ/L (21-32); CHLORIDE LEVEL 104 MEQ/L (98-107); CREATININE FOR GFR 1.06 MG/DL (0.70-1.30); GLOMERULAR FILTRATION RATE > 60.0 (>42); GLUCOSE, FASTING 178 MG/DL (70-100); MAGNESIUM LEVEL 1.6 MG/DL (1.8-2.4); SODIUM LEVEL 137 MEQ/L (136-145); TOTAL PROTEIN 6.2 GM/DL (6.4-8.2)
[2019-05-09] MEDS: HumaLOG INSULIN (NovoLOG) PER UNIT SC SCH ×4 (07:30→21:00)
[2019-05-09] MEDS: ONDANSETRON 4MG/2ML VIAL (J2405) IV PRN ×2 (08:47→21:01)
[2019-05-09] MEDS: MAGNESIUM OXIDE 400 MG TAB (MAG-OX) PO SCH ×2 (09:00→21:01)
[2019-05-09] MEDS: PANTOPRAZOLE 40MG TAB (PROTONIX) PO SCH ×2 (09:00→21:01)
[2019-05-09] MEDS: SODIUM CHLORIDE 1 GM TAB PO SCH ×2 (09:00→21:00)
[2019-05-09] MEDS: FENOFIBRATE 145 MG TAB (TRICOR) PO SCH (09:00)
[2019-05-09] MEDS: LACTOBACILLUS ACIDOPHILUS CAP (BACID) PO SCH ×2 (09:00→21:01)
[2019-05-09] MEDS: SPIRONOLACTONE 12.5MG PER 1/2 TABLET PO SCH (10:08)
[2019-05-09] MEDS: APIXABAN 2.5 MG TAB (ELIQUIS) PO SCH ×2 (10:08→21:01)
[2019-05-09] MEDS: CEPHALEXIN 500 MG CAP PO SCH ×2 (10:08→21:01)
[2019-05-09] MEDS: POTASSIUM CHLORIDE 10 MEQ SR TABLET PO SCH ×2 (10:09→21:01)
[2019-05-09] MEDS: FUROSEMIDE 20 MG TAB PO SCH (10:09)
[2019-05-09] MEDS: LOSARTAN 25 MG TAB PO SCH (10:09)
[2019-05-09] MEDS: NYSTATIN 100,000 UNITS/GM TOPICAL PWD 15 GM TOP SCH ×2 (10:10→21:02)
--- NOTE | 2019-05-09 11:00 | IPNPDOC ---
Subjective Date Seen The patient was seen on 05/09/19. Subjective Chief Complaint/HPI continues with mild abdominal pain and nausea. Progressively weak requiring lift to get OOB. Constitutional: Reports: Weakness, Fatigue ENT: Denies: Head Aches, Ear Pain, Dysphagia Pulmonary: Denies: Dyspnea, Cough Cardiovascular: Denies: Chest Pain, Palpitations, Orthopnea, Paroxysmal Noc. 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 05/07/19: US: normal gallbladder, fatty liver. Symptoms slowly improving. Continue with anti-emetic prn. 05/07 AF. WBC back to baseline at 7.7 (12.3) 05/07 RUQ US normal 05/05 CT AP: Findings are suspicious for proctocolitis. Gastrointestinal findings and recommendations discussed above in detail. Indeterminate appearance of the gallbladder. If there are symptoms, consider ultrasound. Any possibility for urinary tract infection/cystitis to be correlated with urinalysis and culture. Enlarged prostate. Clinical correlation and followup is advised. 12 cm anterior abdominal wall subcutaneous fluid collection again noted inseparable from an anterior abdominal wall mesh repair. Infection cannot be excluded. 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 04/27 UCX: ROUTINE CULTURE RESULTS URINE CULTURE Final Organism 1 ESCHERICHIA COLI COLONY COUNT >100,000 CFU/ml Organism 2 ENTEROCOCCUS FAECALIS COLONY COUNT >100,000 CFU/ml FULL REPORT IN LAB NOTES (eCW and Medent). CONTINUED ON NEXT PAGE 05/02/19 [id number] [place] [address] Olman Will M.D. Javascript Front End Developer Laboratory INQUIRY Report SPEC: [id number] PATIENT: TANIA HESS [id number] (Continued) Procedure Result Site URINE CULTURE Final (continued) E COLI ENT FAECAL RX M.I.C. RX M.I.C. ----- --------- ----- --------- EXTD BRD SPCTRM BETA LACTAMASE - TETRACYCLINE R >=16 PENICILLIN G S 4 TRIMETHOPRIM/SULFAMETHOXAZOLE S <=20 AMPICILLIN R >=32 S <=2 ERYTHROMYCIN I 2 GENTAMICIN S <=1 NITROFURANTOIN S <=16 S 32 CEFAZOLIN S 8 LEVOFLOXACIN R >=8 S 2 CIPROFLOXACIN I 2 TOBRAMYCIN S <=1 VANCOMYCIN S 2 CEFTRIAXONE S <=1 CEFTAZIDIME S <=1 AMPICILLIN/SULBACTAM R >=32 PIPERACILLIN/TAZOBACTAM S <=4 AZTREONAM S <=1 ERTAPENEM S <=0.5 MEROPENEM S <=0.25 TIGECYCLINE S <=0.5 LINEZOLID (ZYVOX) S 2 * CEFEPIME S <=1 (4) Diastolic CHF Status: Chronic Response to Treatment: Stable Problem Text: Euvolemic on HD frank 12.5, los 12.5, fur 20 (5) DM2 (diabetes mellitus, type 2) Status: Chronic Response to Treatment: Stable Problem Text: BG 110-130s on HD SSLI (6) SIADH (syndrome of inappropriate ADH production) Status: Chronic Response to Treatment: Stable Problem Text: 05/07 Na 138 on NaCL 1 gm BID and 1200 FR (7) Physical deconditioning Problem Text: 05/06 subacute rehab at tx Plan/VTE VTE Prophylaxis Ordered?: Yes VS, I&O, 24H, Fishbone Vital Signs/I&O Vital Signs Date Time Temp Pulse Resp B/P (MAP) Pulse Ox O2 Delivery O2 Flow Rate FiO2 05/09/19 10:09 132/80 05/09/19 09:20 101 18 96 Room Air 05/09/19 06:00 97.3 05/07/19 20:00 2.0 I&O- Last 24 Hours up to 6 AM 05/09/19 05:59 Intake Total 1150 ml Output Total 1220 ml Balance -70 ml Laboratory Data 24H LABS Laboratory Tests 2 05/09/19 05:54: Immature Granulocyte % (Auto) 0.7, White Blood Count 6.8, Red Blood Count 3.37L, Hemoglobin 9.3L, Hematocrit 28.4L, Mean Corpuscular Volume 84.3, Mean Corpuscular Hemoglobin 27.6, Mean Corpuscular Hemoglobin Concent 32.7, Red Cell Distribution Width 15.0H, Platelet Count 304, Neutrophils (%) (Auto) 56.9, Lymphocytes (%) (Auto) 31.0, Monocytes (%) (Auto) 10.4H, Eosinophils (%) (Auto) 0.7, Basophils (%) (Auto) 0.3, Neutrophils # (Auto) 3.9, Lymphocytes # (Auto) 2.1, Monocytes # (Auto) 0.7, Eosinophils # (Auto) 0.1, Basophils # (Auto) 0.0, Nucleated Red Blood Cells % (auto) 0.0, Anion Gap 4L, Glomerular Filtration Rate > 60.0, Blood Urea Nitrogen 14, Creatinine 1.06, Sodium Level 137, Potassium Level 4.0, Chloride Level 104, Carbon Dioxide Level 29, Calcium Level 9.0, Aspartate Amino Transf (AST/SGOT) 11, Alanine Aminotransferase (ALT/SGPT) 7L, Alkaline Phosphatase 66, Total Bilirubin 0.4, Total Protein 6.2L, Albumin 1.8L, Magnesium Level 1.6L, Albumin/Globulin Ratio 0.41L CBC/BMP Laboratory Tests 05/09/19 05:54 Red Blood Count 3.37 L, Mean Corpuscular Volume 84.3, Mean Corpuscular Hemoglobin 27.6, Mean Corpuscular Hemoglobin Concent 32.7, Red Cell Distribution Width 15.0 H, Neutrophils (%) (Auto) 56.9, Lymphocytes (%) (Auto) 31.0, Monocytes (%) (Auto) 10.4 H, Eosinophils (%) (Auto) 0.7, Basophils (%) (Auto) 0.3, Neutrophils # (Auto) 3.9, Lymphocytes # (Auto) 2.1, Monocytes # (Auto) 0.7, Eosinophils # (Auto) 0.1, Basophils # (Auto) 0.0, Calcium Level 9.0, Aspartate Amino Transf (AST/SGOT) 11, Alanine Aminotransferase (ALT/SGPT) 7 L, Alkaline Phosphatase 66, Total Bilirubin 0.4, Total Protein 6.2 L, Albumin 1.8 L Microbiology Microbiology 05/05/19 Blood Culture - Preliminary, Resulted No Growth after 72 hours. All specime... 05/05/19 Blood Culture - Preliminary, Resulted No Growth after 72 hours. All specime... Katarina Langford [facility] [place] May 09, 2019 11:00
[2019-05-09 14:00] VITALS: BP 130/84
[2019-05-09] MEDS: ACETAMINOPHEN TAB 650MG DOSE (2X325MG) PO PRN (14:39)
[2019-05-09] MEDS: SOLIFENACIN 5 MG TAB PO SCH (21:00)
[2019-05-09] MEDS: LORATADINE 10 MG TAB PO SCH (21:01)
[2019-05-09] MEDS: ATORVASTATIN 20 MG TAB PO SCH (21:01)
[2019-05-09 22:00] VITALS: BP 136/87
[2019-05-10 06:00] VITALS: BP 149/69
[2019-05-10 06:20] LABS: BASO % 0.3 % (0.0-1.0); EOS % 0.5 % (0.0-3.0); HEMATOCRIT 29.2 % (42.0-52.0); HEMOGLOBIN 9.7 g/dl (13.5-17.5); LYMPH % 31.3 % (24.0-44.0); MEAN CORPUSCULAR HEMOGLOBIN 28.6 pg (27.0-33.0); MEAN CORPUSCULAR HGB CONC 33.2 g/dl (32.0-36.5); MEAN CORPUSCULAR VOLUME 86.1 fl (80.0-96.0); MONO # 0.5 10^3/uL (0.0-0.8); MONO % 7.9 % (0.0-5.0); NEUTROPHILS # 3.8 10^3/uL (1.5-8.5); NEUTROPHILS % 59.1 % (36.0-66.0); PLATELET COUNT, AUTOMATED 295 10^3/uL (150-450); RED BLOOD COUNT 3.39 10^6/uL (4.30-6.10); WHITE BLOOD COUNT 6.5 10^3/uL (4.0-10.0)
[2019-05-10 06:45] LABS: ALBUMIN 1.8 GM/DL (3.2-5.2); ALT/SGPT 8 U/L (12-78); BILIRUBIN,TOTAL 0.4 MG/DL (0.2-1.0); BLOOD UREA NITROGEN 16 MG/DL (7-18); CARBON DIOXIDE LEVEL 30 MEQ/L (21-32); CHLORIDE LEVEL 104 MEQ/L (98-107); CREATININE FOR GFR 1.06 MG/DL (0.70-1.30); GLOMERULAR FILTRATION RATE > 60.0 (>42); GLUCOSE, FASTING 157 MG/DL (70-100); MAGNESIUM LEVEL 1.4 MG/DL (1.8-2.4); POTASSIUM SERUM 3.9 MEQ/L (3.5-5.1); SODIUM LEVEL 138 MEQ/L (136-145); TOTAL PROTEIN 6.4 GM/DL (6.4-8.2)
[2019-05-10] MEDS: HumaLOG INSULIN (NovoLOG) PER UNIT SC SCH ×4 (08:49→20:31)
[2019-05-10] MEDS: SPIRONOLACTONE 12.5MG PER 1/2 TABLET PO SCH (08:49)
[2019-05-10] MEDS: FENOFIBRATE 145 MG TAB (TRICOR) PO SCH (08:49)
[2019-05-10] MEDS: LACTOBACILLUS ACIDOPHILUS CAP (BACID) PO SCH ×2 (08:50→20:16)
[2019-05-10] MEDS: LOSARTAN 25 MG TAB PO SCH (08:50)
[2019-05-10] MEDS: CEPHALEXIN 500 MG CAP PO SCH ×2 (08:50→20:16)
[2019-05-10] MEDS: FUROSEMIDE 20 MG TAB PO SCH (08:50)
[2019-05-10] MEDS: APIXABAN 2.5 MG TAB (ELIQUIS) PO SCH ×2 (08:50→20:17)
[2019-05-10] MEDS: POTASSIUM CHLORIDE 10 MEQ SR TABLET PO SCH ×2 (08:51→20:16)
[2019-05-10] MEDS: PANTOPRAZOLE 40MG TAB (PROTONIX) PO SCH ×2 (08:51→20:16)
[2019-05-10] MEDS: NYSTATIN 100,000 UNITS/GM TOPICAL PWD 15 GM TOP SCH ×2 (08:51→20:18)
[2019-05-10] MEDS: MAGNESIUM OXIDE 400 MG TAB (MAG-OX) PO SCH ×2 (08:51→20:17)
[2019-05-10] MEDS: SODIUM CHLORIDE 1 GM TAB PO SCH ×2 (08:59→20:17)
--- NOTE | 2019-05-10 10:56 | IPNPDOC ---
Subjective Date Seen The patient was seen on 05/10/19. Subjective Chief Complaint/HPI AMS Events since last encounter Improvement in GI symptoms. Continues with weakness and debility. Pulmonary: Denies: Dyspnea, Cough Cardiovascular: Denies: Chest Pain, Palpitations, Orthopnea, Paroxysmal Noc. 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 05/07/19: US: normal gallbladder, fatty liver. Symptoms slowly improving. Continue with anti-emetic prn. 05/07 AF. WBC back to baseline at 7.7 (12.3) 05/07 RUQ US normal 05/05 CT AP: Findings are suspicious for proctocolitis. Gastrointestinal findings and recommendations discussed above in detail. Indeterminate appearance of the gallbladder. If there are symptoms, consider ultrasound. Any possibility for urinary tract infection/cystitis to be correlated with urinalysis and culture. Enlarged prostate. Clinical correlation and followup is advised. 12 cm anterior abdominal wall subcutaneous fluid collection again noted inseparable from an anterior abdominal wall mesh repair. Infection cannot be excluded. 05/05 CT head, CXR NAD (2) Toxic metabolic encephalopathy Status: Acute Response to Treatment: Improving Problem Text: as per GE 05/05 BCX2 NG (3) Indwelling catheter present on admission Status: Chronic Problem Text: c recurrent UTI: finished course of abx. 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 04/27 UCX: ROUTINE CULTURE RESULTS URINE CULTURE Final Organism 1 ESCHERICHIA COLI COLONY COUNT >100,000 CFU/ml Organism 2 ENTEROCOCCUS FAECALIS COLONY COUNT >100,000 CFU/ml FULL REPORT IN LAB NOTES (eCW and Medent). CONTINUED ON NEXT PAGE 05/02/[address] [address] Olman Will M.D. Hospice Director Laboratory INQUIRY Report SPEC: [id number] PATIENT: TANIA HESS [id number] (Continued) Procedure Result Site URINE CULTURE Final (continued) E COLI ENT FAECAL RX M.I.C. RX M.I.C. ----- --------- ----- --------- EXTD BRD SPCTRM BETA LACTAMASE - TETRACYCLINE R >=16 PENICILLIN G S 4 TRIMETHOPRIM/SULFAMETHOXAZOLE S <=20 AMPICILLIN R >=32 S <=2 ERYTHROMYCIN I 2 GENTAMICIN S <=1 NITROFURANTOIN S <=16 S 32 CEFAZOLIN S 8 LEVOFLOXACIN R >=8 S 2 CIPROFLOXACIN I 2 TOBRAMYCIN S <=1 VANCOMYCIN S 2 CEFTRIAXONE S <=1 CEFTAZIDIME S <=1 AMPICILLIN/SULBACTAM R >=32 PIPERACILLIN/TAZOBACTAM S <=4 AZTREONAM S <=1 ERTAPENEM S <=0.5 MEROPENEM S <=0.25 TIGECYCLINE S <=0.5 LINEZOLID (ZYVOX) S 2 * CEFEPIME S <=1 (4) Diastolic CHF Status: Chronic Response to Treatment: Stable Problem Text: Euvolemic on HD frank 12.5, los 12.5, fur 20 (5) DM2 (diabetes mellitus, type 2) Status: Chronic Response to Treatment: Stable Problem Text: BG 110-130s on HD SSLI (6) SIADH (syndrome of inappropriate ADH production) Status: Chronic Response to Treatment: Stable Problem Text: 05/07 Na 138 on NaCL 1 gm BID and 1200 FR (7) Physical deconditioning Problem Text: 05/06 [place]acute [place] Plan/VTE VTE Prophylaxis Ordered?: Yes Plan Pt and Family Services: Other PFS VS, I&O, 24H, [facility] Vital Signs/I&O Vital Signs Date Time Temp Pulse Resp B/P (MAP) Pulse Ox O2 Delivery O2 Flow Rate FiO2 05/10/19 08:50 141/63 05/10/19 06:00 97.9 108 20 98 05/10/19 00:49 Room Air 05/07/19 20:00 2.0 I&O- Last 24 Hours up to 6 AM 05/10/19 06:00 Intake Total 660 ml Output Total 2150 ml Balance -1490 ml Laboratory Data 24H LABS Laboratory Tests 2 05/09/19 11:29: Bedside Glucose (Misc Panel) 271H 05/09/19 16:45: Bedside Glucose (Misc Panel) 113H 05/10/19 05:49: Immature Granulocyte % (Auto) 0.9, White Blood Count 6.5, Red Blood Count 3.39L, Hemoglobin 9.7L, Hematocrit 29.2L, Mean Corpuscular Volume 86.1, Mean Corpuscular Hemoglobin 28.6, Mean Corpuscular Hemoglobin Concent 33.2, Red Cell Distribution Width 15.0H, Platelet Count 295, Neutrophils (%) (Auto) 59.1, Lymphocytes (%) (Auto) 31.3, Monocytes (%) (Auto) 7.9H, Eosinophils (%) (Auto) 0.5, Basophils (%) (Auto) 0.3, Neutrophils # (Auto) 3.8, Lymphocytes # (Auto) 2.0, Monocytes # (Auto) 0.5, Eosinophils # (Auto) 0.0, Basophils # (Auto) 0.0, Nucleated Red Blood Cells % (auto) 0.0, Anion Gap 4L, Glomerular Filtration Rate > 60.0, Blood Urea Nitrogen 16, Creatinine 1.06, Sodium Level 138, Potassium Level 3.9, Chloride Level 104, Carbon Dioxide Level 30, Calcium Level 9.0, Aspartate Amino Transf (AST/SGOT) 12, Alanine Aminotransferase (ALT/SGPT) 8L, Alkaline Phosphatase 61, Total Bilirubin 0.4, Total Protein 6.4, Albumin 1.8L, Magnesium Level 1.4L, Albumin/Globulin Ratio 0.39L CBC/BMP Laboratory Tests 05/10/19 05:49 Red Blood Count 3.39 L, Mean Corpuscular Volume 86.1, Mean Corpuscular Hem oglobin 28.6, Mean Corpuscular Hemoglobin Concent 33.2, Red Cell Distribution Width 15.0 H, Neutrophils (%) (Auto) 59.1, Lymphocytes (%) (Auto) 31.3, Monocytes (%) (Auto) 7.9 H, Eosinophils (%) (Auto) 0.5, Basophils (%) (Auto) 0.3, Neutrophils # (Auto) 3.8, Lymphocytes # (Auto) 2.0, Monocytes # (Auto) 0.5, Eosinophils # (Auto) 0.0, Basophils # (Auto) 0.0, Calcium Level 9.0, Aspartate Amino Transf (AST/SGOT) 12, Alanine Aminotransferase (ALT/SGPT) 8 L, Alkaline Phosphatase 61, Total Bilirubin 0.4, Total Protein 6.4, Albumin 1.8 L Microbiology Microbiology 05/05/19 Blood Culture - Preliminary, Resulted No Growth after 72 hours. All specime... 05/05/19 Blood Culture - Preliminary, Resulted No Growth after 72 hours. All specime... Katarina Langford [facility] May 10, 2019 10:56
[2019-05-10] MEDS: MAG SULF 1GM/100ML (MAG RUN) 1 GM in APPROPRIATE DILUENT 1 EA IV SCH ×2 (12:30→13:29)
[2019-05-10 14:00] VITALS: BP 103/52
[2019-05-10] MEDS: ACETAMINOPHEN TAB 650MG DOSE (2X325MG) PO PRN (15:07)
[2019-05-10 19:30] VITALS: BP 121/62
[2019-05-10] MEDS: ATORVASTATIN 20 MG TAB PO SCH (20:16)
[2019-05-10] MEDS: SOLIFENACIN 5 MG TAB PO SCH (20:16)
[2019-05-10] MEDS: LORATADINE 10 MG TAB PO SCH (20:17)
[2019-05-11 06:00] VITALS: BP 123/61
[2019-05-11 06:34] LABS: BASO % 0.4 % (0.0-1.0); EOS # 0.1 10^3/uL (0.0-0.5); HEMOGLOBIN 9.7 g/dl (13.5-17.5); LYMPH # 2.4 10^3/uL (1.5-5.0); LYMPH % 33.2 % (24.0-44.0); MEAN CORPUSCULAR HEMOGLOBIN 28.2 pg (27.0-33.0); MEAN CORPUSCULAR HGB CONC 33.4 g/dl (32.0-36.5); MEAN CORPUSCULAR VOLUME 84.3 fl (80.0-96.0); MONO # 0.5 10^3/uL (0.0-0.8); MONO % 7.6 % (0.0-5.0); NEUTROPHILS % 57.1 % (36.0-66.0); PLATELET COUNT, AUTOMATED 333 10^3/uL (150-450); RED BLOOD COUNT 3.44 10^6/uL (4.30-6.10); WHITE BLOOD COUNT 7.1 10^3/uL (4.0-10.0)
[2019-05-11 06:53] LABS: BLOOD UREA NITROGEN 16 MG/DL (7-18); CALCIUM LEVEL 9.3 MG/DL (8.8-10.2); CARBON DIOXIDE LEVEL 31 MEQ/L (21-32); CHLORIDE LEVEL 103 MEQ/L (98-107); CREATININE FOR GFR 1.04 MG/DL (0.70-1.30); GLOMERULAR FILTRATION RATE > 60.0 (>42); GLUCOSE, FASTING 174 MG/DL (70-100); MAGNESIUM LEVEL 1.8 MG/DL (1.8-2.4); POTASSIUM SERUM 3.9 MEQ/L (3.5-5.1); SODIUM LEVEL 138 MEQ/L (136-145)
[2019-05-11] MEDS: HumaLOG INSULIN (NovoLOG) PER UNIT SC SCH ×4 (08:42→21:00)
[2019-05-11] MEDS: LACTOBACILLUS ACIDOPHILUS CAP (BACID) PO SCH ×2 (08:43→20:21)
[2019-05-11] MEDS: CEPHALEXIN 500 MG CAP PO SCH ×2 (08:43→20:21)
[2019-05-11] MEDS: FENOFIBRATE 145 MG TAB (TRICOR) PO SCH (08:43)
[2019-05-11] MEDS: PANTOPRAZOLE 40MG TAB (PROTONIX) PO SCH ×2 (08:43→20:21)
[2019-05-11] MEDS: SODIUM CHLORIDE 1 GM TAB PO SCH ×2 (08:43→20:21)
[2019-05-11] MEDS: SPIRONOLACTONE 12.5MG PER 1/2 TABLET PO SCH (08:43)
[2019-05-11] MEDS: POTASSIUM CHLORIDE 10 MEQ SR TABLET PO SCH ×2 (08:43→20:22)
[2019-05-11] MEDS: APIXABAN 2.5 MG TAB (ELIQUIS) PO SCH ×2 (08:43→20:22)
[2019-05-11] MEDS: FUROSEMIDE 20 MG TAB PO SCH (08:44)
[2019-05-11] MEDS: MAGNESIUM OXIDE 400 MG TAB (MAG-OX) PO SCH ×2 (08:44→20:22)
[2019-05-11] MEDS: NYSTATIN 100,000 UNITS/GM TOPICAL PWD 15 GM TOP SCH ×2 (08:44→20:23)
[2019-05-11] MEDS: LOSARTAN 25 MG TAB PO SCH (08:46)
--- NOTE | 2019-05-11 10:59 | IPNPDOC ---
Subjective Date Seen The patient was seen on 05/11/19. Subjective Chief Complaint/HPI Pt this morning states that he cont to feel about the same. He feels weak and tired. His appetite is poor. He has had discussions with his family and nurse regarding [employer] G[employer]. His Dgt Priscilla states that these discussiosn with her started several months ago before his recent recurrent illness. [place] would like Hospice consulted. General: Reports: Fatigue, Malaise Constitutional: Reports: Weakness; Denies: Chills, Fever ENT: Denies: Head Aches Pulmonary: Denies: Dyspnea, Cough Cardiovascular: Denies: Chest Pain, Palpitations Gastrointestinal: Denies: Nausea, Vomiting, Diarrhea Neurological: Reports: Weakness Psych: Reports: Depression Objective Physical Examination General Exam: Positive: Alert, No Acute Distress Eye Exam: Positive: Conjunctiva & lids normal Neck Exam: Negative: JVD Chest Exam: Positive: Clear to auscultation Heart Exam: Positive: Rate Normal Abdomen Exam: Positive: Normal bowel sounds, Soft Extremity Exam: Negative: Edema Neuro Exam: Positive: Normal Speech Psych Exam: Positive: Mental status NL; Negative: Mood NL Assessment /Plan Problems (1) Physical deconditioning Problem Text: Pt has had progressive worsenieng of his condition over the last few months, he would like to meet with Hospice. (2) Gastroenteritis Status: Resolved Response to Treatment: Improving Problem Text: 05/11 symptoms resolving 05/09/19: continues with some residual abdominal discomfort and nausea. 05/07/19: US: normal gallbladder, fatty liver. Symptoms slowly improving. Continue with anti-emetic prn. 05/07 AF. WBC back to baseline at 7.7 (12.3) 05/07 RUQ US normal 05/05 CT AP: Findings are suspicious for proctocolitis. Gastrointestinal findings and recommendations discussed above in detail. Indeterminate appearance of the gallbladder. If there are symptoms, consider ultrasound. Any possibility for urinary tract infection/cystitis to be correlated with urinalysis and culture. Enlarged prostate. Clinical correlation and followup is advised. 12 cm anterior abdominal wall subcutaneous fluid collection again noted inseparable from an anterior abdominal wall mesh repair. Infection cannot be excluded. 05/05 CT head, CXR NAD (3) Toxic metabolic encephalopathy Status: Resolved Response to Treatment: Improving Problem Text: as per GE 05/05 BCX2 NG (4) Indwelling catheter present on admission Status: Chronic Problem Text: c recurrent UTI: finished course of abx. 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 04/27 UCX: ROUTINE CULTURE RESULTS URINE CULTURE Final Organism 1 ESCHERICHIA COLI COLONY COUNT >100,000 CFU/ml Organism 2 ENTEROCOCCUS FAECALIS COLONY COUNT >100,000 CFU/ml FULL REPORT IN LAB NOTES (eCW and Medent). CONTINUED ON NEXT PAGE 05/02/19 0538 [place] [address] Olman Will M.D. Technical Rep Laboratory INQUIRY Report SPEC: [id number] PATIENT: TANIA HESS [id number] (Continued) Procedure Result Site ------- URINE CULTURE Final (continued) E COLI ENT FAECAL RX M.I.C. RX M.I.C. ----- --------- ----- --------- EXTD BRD SPCTRM BETA LACTAMASE - TETRACYCLINE R >=16 PENICILLIN G S 4 TRIMETHOPRIM/SULFAMETHOXAZOLE S <=20 AMPICILLIN R >=32 S <=2 ERYTHROMYCIN I 2 GENTAMICIN S <=1 NITROFURANTOIN S <=16 S 32 CEFAZOLIN S 8 LEVOFLOXACIN R >=8 S 2 CIPROFLOXACIN I 2 TOBRAMYCIN S <=1 VANCOMYCIN S 2 CEFTRIAXONE S <=1 CEFTAZIDIME S <=1 AMPICILLIN/SULBACTAM R >=32 PIPERACILLIN/TAZOBACTAM S <=4 AZTREONAM S <=1 ERTAPENEM S <=0.5 MEROPENEM S <=0.25 TIGECYCLINE S <=0.5 LINEZOLID (ZYVOX) S 2 * CEFEPIME S <=1 (5) Diastolic CHF Status: Chronic Response to Treatment: Stable Problem Text: Euvolemic on HD frank 12.5, los 12.5, fur 20 (6) DM2 (diabetes mellitus, type 2) Status: Chronic Response to Treatment: Stable Problem Text: BG 110-130s on HD SSLI (7) SIADH (syndrome of inappropriate ADH production) Status: Chronic Response to Treatment: Stable Problem Text: 05/07 Na 138 on NaCL 1 gm BID and 1200 FR Plan/VTE VTE Prophylaxis Ordered?: Yes Plan Pt and Family Services: Other PFS VS, I&O, 24H, Fishbone Vital Signs/I&O Vital Signs Date Time Temp Pulse Resp B/P (MAP) Pulse Ox O2 Delivery O2 Flow Rate FiO2 05/11/19 08:46 118/62 05/11/19 06:00 97.3 102 20 98 05/11/19 03:26 Room Air 05/07/19 20:00 2.0 I&O- Last 24 Hours up to 6 AM 05/11/19 06:00 Intake Total 800 ml Output Total 1525 ml Balance -725 ml Laboratory Data 24H LABS Laboratory Tests 2 05/10/19 12:19: Bedside Glucose (Misc Panel) 203H 05/10/19 16:50: Bedside Glucose (Misc Panel) 264H 05/10/19 20:13: Bedside Glucose (Misc Panel) 152H 05/11/19 05:43: Immature Granulocyte % (Auto) 0.7, White Blood Count 7.1, Red Blood Count 3.44L, Hemoglobin 9.7L, Hematocrit 29.0L, Mean Corpuscular Volume 84.3, Mean Corpuscular Hemoglobin 28.2, Mean Corpuscular Hemoglobin Concent 33.4, Red Cell Distribution Width 15.0H, Platelet Count 333, Neutrophils (%) (Auto) 57.1, Lymphocytes (%) (Auto) 33.2, Monocytes (%) (Auto) 7.6H, Eosinophils (%) (Auto) 1.0, Basophils (%) (Auto) 0.4, Neutrophils # (Auto) 4.0, Lymphocytes # (Auto) 2.4, Monocytes # (Auto) 0.5, Eosinophils # (Auto) 0.1, Basophils # (Auto) 0.0, Nucleated Red Blood Cells % (auto) 0.0, Anion Gap 4L, Glomerular Filtration Rate > 60.0, Blood Urea Nitrogen 16, Creatinine 1.04, Sodium Level 138, Potassium Level 3.9, Chloride Level 103, Carbon Dioxide Level 31, Calcium Level 9.3, M agnesium Level 1.8 CBC/BMP Laboratory Tests 05/11/19 05:43 Red Blood Count 3.44 L, Mean Corpuscular Volume 84.3, Mean Corpuscular Hemoglobin 28.2, Mean Corpuscular Hemoglobin Concent 33.4, Red Cell Distribution Width 15.0 H, Neutrophils (%) (Auto) 57.1, Lymphocytes (%) (Auto) 33.2, Monocytes (%) (Auto) 7.6 H, Eosinophils (%) (Auto) 1.0, Basophils (%) (Auto) 0.4, Neutrophils # (Auto) 4.0, Lymphocytes # (Auto) 2.4, Monocytes # (Auto) 0.5, Eosinophils # (Auto) 0.1, Basophils # (Auto) 0.0, Calcium Level 9.3 Microbiology Microbiology 05/05/19 Blood Culture - Final, Complete NO GROWTH AFTER 5 DAYS 05/05/19 Blood Culture - Final, Complete NO GROWTH AFTER 5 DAYS JACK CAMARGO PA-C May 11, 2019 10:59
[2019-05-11] MEDS: ONDANSETRON 4MG/2ML VIAL (J2405) IV PRN ×2 (11:09→20:20)
[2019-05-11 14:00] VITALS: BP 122/63
[2019-05-11 20:19] VITALS: BP 120/75
[2019-05-11] MEDS: SOLIFENACIN 5 MG TAB PO SCH (20:21)
[2019-05-11] MEDS: ATORVASTATIN 20 MG TAB PO SCH (20:21)
[2019-05-11] MEDS: LORATADINE 10 MG TAB PO SCH (20:22)
[2019-05-11] MEDS ORDERED: MIRTAZAPINE 15 MG TAB PO SCH ×2 (21:00)
[2019-05-11 22:00] VITALS: BP 120/75
[2019-05-12 06:00] VITALS: BP 114/56
[2019-05-12 06:22] LABS: BASO % 0.4 % (0.0-1.0); EOS # 0.1 10^3/uL (0.0-0.5); EOS % 1.6 % (0.0-3.0); HEMATOCRIT 30.1 % (42.0-52.0); HEMOGLOBIN 9.9 g/dl (13.5-17.5); LYMPH # 2.3 10^3/uL (1.5-5.0); LYMPH % 40.7 % (24.0-44.0); MEAN CORPUSCULAR HEMOGLOBIN 28.6 pg (27.0-33.0); MEAN CORPUSCULAR HGB CONC 32.9 g/dl (32.0-36.5); MONO # 0.4 10^3/uL (0.0-0.8); MONO % 7.7 % (0.0-5.0); NEUTROPHILS # 2.7 10^3/uL (1.5-8.5); NEUTROPHILS % 48.9 % (36.0-66.0); PLATELET COUNT, AUTOMATED 296 10^3/uL (150-450); RED BLOOD COUNT 3.46 10^6/uL (4.30-6.10); WHITE BLOOD COUNT 5.6 10^3/uL (4.0-10.0)
[2019-05-12 06:47] LABS: BLOOD UREA NITROGEN 16 MG/DL (7-18); CALCIUM LEVEL 9.4 MG/DL (8.8-10.2); CARBON DIOXIDE LEVEL 31 MEQ/L (21-32); CHLORIDE LEVEL 105 MEQ/L (98-107); CREATININE FOR GFR 1.06 MG/DL (0.70-1.30); GLOMERULAR FILTRATION RATE > 60.0 (>42); GLUCOSE, FASTING 156 MG/DL (70-100); MAGNESIUM LEVEL 1.6 MG/DL (1.8-2.4); POTASSIUM SERUM 4.1 MEQ/L (3.5-5.1); SODIUM LEVEL 139 MEQ/L (136-145)
[2019-05-12 08:43] VITALS: BP 82/42
[2019-05-12] MEDS: APIXABAN 2.5 MG TAB (ELIQUIS) PO SCH ×2 (08:47→22:01)
[2019-05-12] MEDS: FUROSEMIDE 20 MG TAB PO SCH ×2 (08:47→09:00)
[2019-05-12] MEDS: PANTOPRAZOLE 40MG TAB (PROTONIX) PO SCH ×2 (08:48→22:02)
[2019-05-12] MEDS: POTASSIUM CHLORIDE 10 MEQ SR TABLET PO SCH ×2 (08:48→22:01)
[2019-05-12] MEDS: CEPHALEXIN 500 MG CAP PO SCH ×2 (08:48→22:01)
[2019-05-12] MEDS: LACTOBACILLUS ACIDOPHILUS CAP (BACID) PO SCH ×2 (08:48→22:00)
[2019-05-12] MEDS: SPIRONOLACTONE 12.5MG PER 1/2 TABLET PO SCH ×2 (08:48→09:00)
[2019-05-12] MEDS: FENOFIBRATE 145 MG TAB (TRICOR) PO SCH (08:48)
[2019-05-12] MEDS: MAGNESIUM OXIDE 400 MG TAB (MAG-OX) PO SCH ×2 (08:49→22:02)
[2019-05-12] MEDS: HumaLOG INSULIN (NovoLOG) PER UNIT SC SCH ×4 (08:50→21:00)
[2019-05-12] MEDS: NYSTATIN 100,000 UNITS/GM TOPICAL PWD 15 GM TOP SCH ×2 (08:54→22:03)
[2019-05-12] MEDS: SODIUM CHLORIDE 1 GM TAB PO SCH ×2 (08:54→22:00)
[2019-05-12] MEDS: LOSARTAN 25 MG TAB PO SCH (08:54)
[2019-05-12] MEDS: ACETAMINOPHEN TAB 650MG DOSE (2X325MG) PO PRN (08:56)
--- NOTE | 2019-05-12 09:17 | IPNPDOC ---
Subjective Date Seen The patient was seen on 05/12/19. Subjective Chief Complaint/HPI no pain, no dyspnea Constitutional: Denies: Chills ENT: Denies: Head Aches Pulmonary: Denies: Dyspnea Cardiovascular: Denies: Chest Pain, Palpitations Gastrointestinal: Denies: Nausea, Abdominal Pain Genitourinary: Denies: Dysuria, Frequency Neurological: Denies: Weakness Psych: Denies: Mood Normal (looks depressed) Objective Physical Examination General Exam: Positive: Alert, No Acute Distress Eye Exam: Positive: Conjunctiva & lids normal Neck Exam: Negative: JVD Chest Exam: Positive: Clear to auscultation Heart Exam: Positive: Rate Normal Abdomen Exam: Positive: Normal bowel sounds, Soft Extremity Exam: Negative: Edema Neuro Exam: Positive: Normal Speech Psych Exam: Positive: Mental status NL; Negative: Mood NL Assessment /Plan Problems (1) Physical deconditioning Problem Text: Pt has had progressive worsenieng of his condition over the last few months, he would like to meet with Hospice. (2) Gastroenteritis Status: Resolved Response to Treatment: Improving Problem Text: 05/11 symptoms resolving 05/09/19: continues with some residual abdominal discomfort and nausea. 05/07/19: US: normal gallbladder, fatty liver. Symptoms slowly improving. Continue with anti-emetic prn. 05/07 AF. WBC back to baseline at 7.7 (12.3) 05/07 RUQ US normal 05/05 CT AP: Findings are suspicious for proctocolitis. Gastrointestinal findings and recommendations discussed above in detail. Indeterminate appearance of the gallbladder. If there are symptoms, consider ultrasound. Any possibility for urinary tract infection/cystitis to be correlated with urinalysis and culture. Enlarged prostate. Clinical correlation and followup is advised. 12 cm anterior abdominal wall subcutaneous fluid collection again noted inseparable from an anterior abdominal wall mesh repair. Infection cannot be excluded. 05/05 CT head, CXR NAD (3) Toxic metabolic encephalopathy Status: Resolved Response to Treatment: Improving Problem Text: as per GE 05/05 BCX2 NG (4) Indwelling catheter present on admission Status: Chronic Problem Text: c recurrent UTI: finished course of abx. 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 04/27 UCX: ROUTINE CULTURE RESULTS URINE CULTURE Final Organism 1 ESCHERICHIA COLI COLONY COUNT >100,000 CFU/ml Organism 2 ENTEROCOCCUS FAECALIS COLONY COUNT >100,000 CFU/ml FULL REPORT IN LAB NOTES (eCW and Medent). CONTINUED ON NEXT PAGE 05/02/19 0538 [place] [address] Olman Will M.D. [employer] Laboratory INQUIRY Report SPEC: [id number] PATIENT: TANIA HESS [id number] (Continued) ----- Procedure Result Site ------- URINE CULTURE Final (continued) E COLI ENT FAECAL RX M.I.C. RX M.I.C. ----- --------- ----- --------- EXTD BRD SPCTRM BETA LACTAMASE - TETRACYCLINE R >=16 PENICILLIN G S 4 TRIMETHOPRIM/SULFAMETHOXAZOLE S <=20 AMPICILLIN R >=32 S <=2 ERYTHROMYCIN I 2 GENTAMICIN S <=1 NITROFURANTOIN S <=16 S 32 CEFAZOLIN S 8 LEVOFLOXACIN R >=8 S 2 CIPROFLOXACIN I 2 TOBRAMYCIN S <=1 VANCOMYCIN S 2 CEFTRIAXONE S <=1 CEFTAZIDIME S <=1 AMPICILLIN/SULBACTAM R >=32 PIPERACILLIN/TAZOBACTAM S <=4 AZTREONAM S <=1 ERTAPENEM S <=0.5 MEROPENEM S <=0.25 TIGECYCLINE S <=0.5 LINEZOLID (ZYVOX) S 2 * CEFEPIME S <=1 (5) Diastolic CHF Status: Chronic Response to Treatment: Stable Problem Text: Euvolemic on HD frank 12.5, los 12.5, fur 20 (6) DM2 (diabetes mellitus, type 2) Status: Chronic Response to Treatment: Stable Problem Text: BG 110-130s on HD SSLI (7) SIADH (syndrome of inappropriate ADH production) Status: Chronic Response to Treatment: Stable Problem Text: 05/12 sodium stable 05/07 Na 138 on NaCL 1 gm BID and 1200 FR Plan/VTE VTE Prophylaxis Ordered?: Yes Plan Pt and Family Services: Other PFS VS, I&O, 24H, [facility] Vital Signs/I&O Vital Signs Date Time Temp Pulse Resp B/P (MAP) Pulse Ox O2 Delivery O2 Flow Rate FiO2 05/12/19 06:00 97.5 87 17 114/56 (75) 96 05/11/19 03:26 Room Air 05/07/19 20:00 2.0 I&O- Last 24 Hours up to 6 AM 05/12/19 06:00 Intake Total 690 ml Output Total 1875 ml Balance -1185 ml Laboratory Data 24H LABS Laboratory Tests 2 05/11/19 11:56: Bedside Glucose (Misc Panel) 207H 05/11/19 16:40: Bedside Glucose (Misc Panel) 161H 05/11/19 21:20: Bedside Glucose (Misc Panel) 174H 05/12/19 05:54: Immature Granulocyte % (Auto) 0.7, White Blood Count 5.6, Red Blood Count 3.46L, Hemoglobin 9.9L, Hematocrit 30.1L, Mean Corpuscular Volume 87.0, Mean Corpuscular Hemoglobin 28.6, Mean Corpuscular Hemoglobin Concent 32.9, Red Cell Distribution Width 15.2H, Platelet Count 296, Neutrophils (%) (Auto) 48.9, Lymphocytes (%) (Auto) 40.7, Monocytes (%) (Auto) 7.7H, Eosinophils (%) (Auto) 1.6, Basophils (%) (Auto) 0.4, Neutrophils # (Auto) 2.7, Lymphocytes # (Auto) 2.3, Monocytes # (Auto) 0.4, Eosinophils # (Auto) 0.1, Basophils # (Auto) 0.0, Nucleated Red Blood Cells % (auto) 0.0 05/12/19 05:55: Anion Gap 3L, Glomerular Filtration Rate > 60.0, Blood Urea Nitrogen 16, Creatin ine 1.06, Sodium Level 139, Potassium Level 4.1, Chloride Level 105, Carbon Dioxide Level 31, Calcium Level 9.4, Magnesium Level 1.6L CBC/BMP Laboratory Tests 05/12/19 05:54 Red Blood Count 3.46 L, Mean Corpuscular Volume 87.0, Mean Corpuscular Hemoglobin 28.6, Mean Corpuscular Hemoglobin Concent 32.9, Red Cell Distribution Width 15.2 H, Neutrophils (%) (Auto) 48.9, Lymphocytes (%) (Auto) 40.7, Monocytes (%) (Auto) 7.7 H, Eosinophils (%) (Auto) 1.6, Basophils (%) (Auto) 0.4, Neutrophils # (Auto) 2.7, Lymphocytes # (Auto) 2.3, Monocytes # (Auto) 0.4, Eosinophils # (Auto) 0.1, Basophils # (Auto) 0.0 05/12/19 05:55 Calcium Level 9.4 Microbiology Microbiology 05/05/19 Blood Culture - Final, Complete NO GROWTH AFTER 5 DAYS 05/05/19 Blood Culture - Final, Complete NO GROWTH AFTER [address] Mina MD May 12, 2019 09:17
[2019-05-12] MEDS ORDERED: NS 500 ML IV ONE (09:30)
[2019-05-12 11:20] VITALS: BP 124/67
[2019-05-12 14:00] VITALS: BP 102/41
[2019-05-12 16:01] VITALS: BP 112/64
[2019-05-12] MEDS: LORATADINE 10 MG TAB PO SCH (21:59)
[2019-05-12 22:00] VITALS: BP 120/69
[2019-05-12] MEDS: ATORVASTATIN 20 MG TAB PO SCH (22:00)
[2019-05-12] MEDS: SOLIFENACIN 5 MG TAB PO SCH (22:01)
[2019-05-12] MEDS: MIRTAZAPINE 15 MG TAB PO SCH (22:02)
[2019-05-13 06:00] VITALS: BP 131/79
[2019-05-13 06:30] LABS: BASO % 0.3 % (0.0-1.0); EOS # 0.1 10^3/uL (0.0-0.5); EOS % 1.6 % (0.0-3.0); HEMATOCRIT 30.7 % (42.0-52.0); HEMOGLOBIN 10.1 g/dl (13.5-17.5); LYMPH # 2.8 10^3/uL (1.5-5.0); LYMPH % 40.1 % (24.0-44.0); MEAN CORPUSCULAR HEMOGLOBIN 28.1 pg (27.0-33.0); MEAN CORPUSCULAR HGB CONC 32.9 g/dl (32.0-36.5); MEAN CORPUSCULAR VOLUME 85.3 fl (80.0-96.0); MONO # 0.4 10^3/uL (0.0-0.8); MONO % 6.3 % (0.0-5.0); NEUTROPHILS # 3.6 10^3/uL (1.5-8.5); NEUTROPHILS % 51.3 % (36.0-66.0); PLATELET COUNT, AUTOMATED 334 10^3/uL (150-450)
[2019-05-13 06:59] LABS: BLOOD UREA NITROGEN 21 MG/DL (7-18); CARBON DIOXIDE LEVEL 27 MEQ/L (21-32); CHLORIDE LEVEL 106 MEQ/L (98-107); CREATININE FOR GFR 1.07 MG/DL (0.70-1.30); GLOMERULAR FILTRATION RATE > 60.0 (>42); GLUCOSE, FASTING 192 MG/DL (70-100); MAGNESIUM LEVEL 1.6 MG/DL (1.8-2.4); POTASSIUM SERUM 4.5 MEQ/L (3.5-5.1); SODIUM LEVEL 139 MEQ/L (136-145)
[2019-05-13] MEDS: HumaLOG INSULIN (NovoLOG) PER UNIT SC SCH ×4 (09:16→21:11)
[2019-05-13] MEDS: APIXABAN 2.5 MG TAB (ELIQUIS) PO SCH ×2 (09:17→21:09)
[2019-05-13] MEDS: CEPHALEXIN 500 MG CAP PO SCH ×2 (09:17→21:09)
[2019-05-13] MEDS: SPIRONOLACTONE 12.5MG PER 1/2 TABLET PO SCH (09:17)
[2019-05-13] MEDS: MAGNESIUM OXIDE 400 MG TAB (MAG-OX) PO SCH ×2 (09:17→21:10)
[2019-05-13] MEDS: POTASSIUM CHLORIDE 10 MEQ SR TABLET PO SCH ×2 (09:17→21:09)
[2019-05-13] MEDS: PANTOPRAZOLE 40MG TAB (PROTONIX) PO SCH ×2 (09:17→21:09)
[2019-05-13] MEDS: FUROSEMIDE 20 MG TAB PO SCH (09:18)
[2019-05-13] MEDS: SODIUM CHLORIDE 1 GM TAB PO SCH ×2 (09:18→21:10)
[2019-05-13] MEDS: FENOFIBRATE 145 MG TAB (TRICOR) PO SCH (09:18)
[2019-05-13] MEDS: NYSTATIN 100,000 UNITS/GM TOPICAL PWD 15 GM TOP SCH ×2 (09:18→21:11)
[2019-05-13] MEDS: LACTOBACILLUS ACIDOPHILUS CAP (BACID) PO SCH ×2 (09:18→21:09)
[2019-05-13] MEDS: LOSARTAN 25 MG TAB PO SCH (09:18)
[2019-05-13 11:22] VITALS: BP 138/88
--- NOTE | 2019-05-13 11:58 | IPNPDOC ---
Subjective Date Seen The patient was seen on 05/13/19. Subjective Chief Complaint/HPI a little short of breath today Constitutional: Denies: Chills Pulmonary: Denies: Cough Cardiovascular: Denies: Chest Pain Gastrointestinal: Denies: Vomiting, Abdominal Pain Hematologic: Denies: Bruising Neurological: Denies: Weakness Objective Physical Examination General Exam: Positive: Alert, No Acute Distress Eye Exam: Positive: Conjunctiva & lids normal Neck Exam: Negative: JVD Chest Exam: Positive: Clear to auscultation Heart Exam: Positive: Tachycardic (rhythm regular, rate about 104 while sitting up) Abdomen Exam: Positive: Normal bowel sounds, Soft Extremity Exam: Negative: Edema Neuro Exam: Positive: Normal Speech Psych Exam: Positive: Mental status NL; Negative: Mood NL Assessment /Plan Problems (1) Physical deconditioning Problem Text: 05/13: may be part of why he is tachycardic while up in chair. Pt has had progressive worsenieng of his condition over the last few months, he would like to meet with Hospice. (2) Gastroenteritis Status: Resolved Response to Treatment: Improving Problem Text: 05/11 symptoms resolving 05/09/19: continues with some residual abdominal discomfort and nausea. 05/07/19: US: normal gallbladder, fatty liver. Symptoms slowly improving. Continue with anti-emetic prn. 05/07 AF. WBC back to baseline at 7.7 (12.3) 05/07 RUQ US normal 05/05 CT AP: Findings are suspicious for proctocolitis. Gastrointestinal findings and recommendations discussed above in detail. Indeterminate appearance of the gallbladder. If there are symptoms, consider ultrasound. Any possibility for urinary tract infection/cystitis to be correlated with urinalysis and culture. Enlarged prostate. Clinical correlation and followup is advised. 12 cm anterior abdominal wall subcutaneous fluid collection again noted inseparable from an anterior abdominal wall mesh repair. Infection cannot be excluded. 05/05 CT head, CXR NAD (3) Toxic metabolic encephalopathy Status: Resolved Response to Treatment: Improving Problem Text: as per GE 05/05 BCX2 NG (4) Indwelling catheter present on admission Status: Chronic Problem Text: c recurrent UTI: finished course of abx. 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 04/27 UCX: ROUTINE CULTURE RESULTS URINE CULTURE Final Organism 1 ESCHERICHIA COLI COLONY COUNT >100,000 CFU/ml Organism 2 ENTEROCOCCUS FAECALIS COLONY COUNT >100,000 CFU/ml FULL REPORT IN LAB NOTES (eCW and Medhi). CONTINUED ON NEXT PAGE 05/02/19 0538 [place] [address] Olman Will M.D. [employer] Laboratory INQUIRY Report ------- SPEC: [id number] PATIENT: TANIA HESS [id number] (Continued) -- ------- Procedure Result Site URINE CULTURE Final (continued) E COLI ENT FAECAL RX M.I.C. RX M.I.C. ----- --------- ----- --------- EXTD BRD SPCTRM BETA LACTAMASE - TETRACYCLINE R >=16 PENICILLIN G S 4 TRIMETHOPRIM/SULFAMETHOXAZOLE S <=20 AMPICILLIN R >=32 S <=2 ERYTHROMYCIN I 2 GENTAMICIN S <=1 NITROFURANTOIN S <=16 S 32 CEFAZOLIN S 8 LEVOFLOXACIN R >=8 S 2 CIPROFLOXACIN I 2 TOBRAMYCIN S <=1 VANCOMYCIN S 2 CEFTRIAXONE S <=1 CEFTAZIDIME S <=1 AMPICILLIN/SULBACTAM R >=32 PIPERACILLIN/TAZOBACTAM S <=4 AZTREONAM S <=1 ERTAPENEM S <=0.5 MEROPENEM S <=0.25 TIGECYCLINE S <=0.5 LINEZOLID (ZYVOX) S 2 * CEFEPIME S <=1 (5) Diastolic CHF Status: Chronic Response to Treatment: Stable Problem Text: Euvolemic on HD frank 12.5, los 12.5, fur 20 (6) DM2 (diabetes mellitus, type 2) Status: Chronic Response to Treatment: Stable Problem Text: BG 110-130s on HD SSLI (7) SIADH (syndrome of inappropriate ADH production) Status: Chronic Response to Treatment: Stable Problem Text: 05/12 sodium stable 05/07 Na 138 on NaCL 1 gm BID and 1200 FR Plan/VTE VTE Prophylaxis Ordered?: Yes Plan Pt and Family Services: Other PFS VS, I&O, 24H, [facility] Vital Signs/I&O Vital Signs Date Time Temp Pulse Resp B/P (MAP) Pulse Ox O2 Delivery O2 Flow Rate FiO2 05/13/19 11:22 138/88 (105) 05/13/19 06:00 96.9 108 17 95 05/11/19 03:26 Room Air 05/07/19 20:00 2.0 I&O- Last 24 Hours up to 6 AM 05/13/19 06:00 Intake Total 1130 ml Output Total 1350 ml Balance -220 ml Laboratory Data 24H LABS Laboratory Tests 2 05/12/19 16:38: Bedside Glucose (Misc Panel) 178H 05/12/19 21:25: Bedside Glucose (Misc Panel) 214H 05/13/19 06:14: Immature Granulocyte % (Auto) 0.4, White Blood Count 7.0, Red Blood Count 3.60L, Hemoglobin 10.1L, Hematocrit 30.7L, Mean Corpuscular Volume 85.3, Mean Laisha uscular Hemoglobin 28.1, Mean Corpuscular Hemoglobin Concent 32.9, Red Cell Distribution Width 15.2H, Platelet Count 334, Neutrophils (%) (Auto) 51.3, Lymphocytes (%) (Auto) 40.1, Monocytes (%) (Auto) 6.3H, Eosinophils (%) (Auto) 1.6, Basophils (%) (Auto) 0.3, Neutrophils # (Auto) 3.6, Lymphocytes # (Auto) 2.8, Monocytes # (Auto) 0.4, Eosinophils # (Auto) 0.1, Basophils # (Auto) 0.0, Nucleated Red Blood Cells % (auto) 0.0, Anion Gap 6L, Glomerular Filtration Rate > 60.0, Blood Urea Nitrogen 21H, Creatinine 1.07, Sodium Level 139, Potassium Level 4.5, Chloride Level 106, Carbon Dioxide Level 27, Calcium Level 9.0, Magnesium Level 1.6L CBC/BMP Laboratory Tests 05/13/19 06:14 Red Blood Count 3.60 L, Mean Corpuscular Volume 85.3, Mean Corpuscular Hemoglobin 28.1, Mean Corpuscular Hemoglobin Concent 32.9, Red Cell Distribution Width 15.2 H, Neutrophils (%) (Auto) 51.3, Lymphocytes (%) (Auto) 40.1, Monocytes (%) (Auto) 6.3 H, Eosinophils (%) (Auto) 1.6, Basophils (%) (Auto) 0.3, Neutrophils # (Auto) 3.6, Lymphocytes # (Auto) 2.8, Monocytes # (Auto) 0.4, Eosinophils # (Auto) 0.1, Basophils # (Auto) 0.0, Calcium Level 9.0 Microbiology Microbiology 05/05/19 Blood Culture - Final, Complete NO GROWTH AFTER 5 DAYS 05/05/19 Blood Culture - Final, Complete NO GROWTH AFTER [address] Mina MD May 13, 2019 11:58
[2019-05-13 14:00] VITALS: BP 125/60
[2019-05-13] MEDS: SOLIFENACIN 5 MG TAB PO SCH (21:09)
[2019-05-13] MEDS: ATORVASTATIN 20 MG TAB PO SCH (21:09)
[2019-05-13] MEDS: LORATADINE 10 MG TAB PO SCH (21:10)
[2019-05-13] MEDS: MIRTAZAPINE 15 MG TAB PO SCH (21:10)
[2019-05-13] MEDS: ONDANSETRON 4MG/2ML VIAL (J2405) IV PRN (21:32)
[2019-05-13 22:00] VITALS: BP 156/89
[2019-05-14 06:00] VITALS: BP 128/60
[2019-05-14 06:14] LABS: BASO % 0.3 % (0.0-1.0); EOS # 0.1 10^3/uL (0.0-0.5); HEMATOCRIT 30.8 % (42.0-52.0); HEMOGLOBIN 10.1 g/dl (13.5-17.5); LYMPH # 2.6 10^3/uL (1.5-5.0); LYMPH % 36.4 % (24.0-44.0); MEAN CORPUSCULAR HEMOGLOBIN 28.6 pg (27.0-33.0); MEAN CORPUSCULAR HGB CONC 32.8 g/dl (32.0-36.5); MEAN CORPUSCULAR VOLUME 87.3 fl (80.0-96.0); MONO # 0.5 10^3/uL (0.0-0.8); MONO % 7.7 % (0.0-5.0); NEUTROPHILS # 3.7 10^3/uL (1.5-8.5); NEUTROPHILS % 52.7 % (36.0-66.0); PLATELET COUNT, AUTOMATED 292 10^3/uL (150-450); RED BLOOD COUNT 3.53 10^6/uL (4.30-6.10)
[2019-05-14 06:37] LABS: BLOOD UREA NITROGEN 22 MG/DL (7-18); CALCIUM LEVEL 9.4 MG/DL (8.8-10.2); CARBON DIOXIDE LEVEL 30 MEQ/L (21-32); CHLORIDE LEVEL 106 MEQ/L (98-107); CREATININE FOR GFR 1.14 MG/DL (0.70-1.30); GLOMERULAR FILTRATION RATE > 60.0 (>42); GLUCOSE, FASTING 173 MG/DL (70-100); MAGNESIUM LEVEL 1.4 MG/DL (1.8-2.4); POTASSIUM SERUM 4.5 MEQ/L (3.5-5.1); SODIUM LEVEL 139 MEQ/L (136-145)
[2019-05-14] MEDS: MAGNESIUM OXIDE 400 MG TAB (MAG-OX) PO SCH ×2 (08:55→21:09)
[2019-05-14] MEDS: LACTOBACILLUS ACIDOPHILUS CAP (BACID) PO SCH ×2 (08:55→21:08)
[2019-05-14] MEDS: APIXABAN 2.5 MG TAB (ELIQUIS) PO SCH ×2 (08:55→21:08)
[2019-05-14] MEDS: PANTOPRAZOLE 40MG TAB (PROTONIX) PO SCH ×2 (08:55→21:08)
[2019-05-14] MEDS: SPIRONOLACTONE 12.5MG PER 1/2 TABLET PO SCH (08:55)
[2019-05-14] MEDS: FUROSEMIDE 20 MG TAB PO SCH (08:56)
[2019-05-14] MEDS: POTASSIUM CHLORIDE 10 MEQ SR TABLET PO SCH ×2 (08:56→21:07)
[2019-05-14] MEDS: LOSARTAN 25 MG TAB PO SCH (08:58)
[2019-05-14] MEDS: NYSTATIN 100,000 UNITS/GM TOPICAL PWD 15 GM TOP SCH ×2 (08:58→21:09)
[2019-05-14] MEDS: FENOFIBRATE 145 MG TAB (TRICOR) PO SCH (08:58)
[2019-05-14] MEDS: CEPHALEXIN 500 MG CAP PO SCH ×2 (08:58→21:08)
[2019-05-14] MEDS: SODIUM CHLORIDE 1 GM TAB PO SCH ×2 (08:59→21:08)
[2019-05-14] MEDS: HumaLOG INSULIN (NovoLOG) PER UNIT SC SCH ×4 (08:59→21:00)
--- NOTE | 2019-05-14 10:46 | IPNPDOC ---
Subjective Date Seen The patient was seen on 05/14/19. Subjective Chief Complaint/HPI I met with the patient andhis dgt Priscilla at bedside. Cachorro is feeling better since Tuesday, moods are improved slightly, he has eaten better over the weekend as well. He states that he would like to meet with Hospice he isn't sure if he needs Hospice because he is feeling a bit better, but he states that he doesn't want to come back to the hospital again if he falls sick. General: Reports: Fatigue Constitutional: Denies: Chills, Fever Pulmonary: Denies: Dyspnea, Cough Cardiovascular: Denies: Chest Pain, Palpitations Gastrointestinal: Denies: Nausea, Vomiting, Abdominal Pain, Diarrhea Neurological: Reports: Weakness Psych: Reports: Depression Objective Physical Examination General Exam: Positive: Alert, No Acute Distress Neck Exam: Negative: JVD Chest Exam: Positive: Clear to auscultation Heart Exam: Positive: Tachycardic (rhythm regular, rate about 104 while sitting up) Abdomen Exam: Positive: Normal bowel sounds, Soft Extremity Exam: Negative: Edema Neuro Exam: Positive: Normal Speech Psych Exam: Positive: Mental status NL; Negative: Mood NL Assessment /Plan Problems (1) Physical deconditioning Problem Text: 05/14 Pt does cont to work with PT and has been eating better over the weekend. 05/13: may be part of why he is tachycardic while up in chair. Pt has had progressive worsenieng of his condition over the last few months, he would like to meet with Hospice. (2) Gastroenteritis Status: Resolved Response to Treatment: Improving Problem Text: 05/11 symptoms resolving 05/09/19: continues with some residual abdominal discomfort and nausea. 05/07/19: US: normal gallbladder, fatty liver. Symptoms slowly improving. Continue with anti-emetic prn. 05/07 AF. WBC back to baseline at 7.7 (12.3) 05/07 RUQ US normal 05/05 CT AP: Findings are suspicious for proctocolitis. Gastrointestinal findings and recommendations discussed above in detail. Indeterminate appearance of the gallbladder. If there are symptoms, consider ultrasound. Any possibility for urinary tract infection/cystitis to be correlated with urinalysis and culture. Enlarged prostate. Clinical correlation and followup is advised. 12 cm anterior abdominal wall subcutaneous fluid collection again noted inseparable from an anterior abdominal wall mesh repair. Infection cannot be excluded. 05/05 CT head, CXR NAD (3) Toxic metabolic encephalopathy Status: Resolved Response to Treatment: Improving Problem Text: as per GE 05/05 BCX2 NG (4) Indwelling catheter present on admission Status: Chronic Problem Text: c recurrent UTI: finished course of abx. 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 04/27 UCX: ROUTINE CULTURE RESULTS URINE CULTURE Final Organism 1 ESCHERICHIA COLI COLONY COUNT >100,000 CFU/ml Organism 2 ENTEROCOCCUS FAECALIS COLONY COUNT >100,000 CFU/ml FULL REPORT IN LAB NOTES (eCW and Medent). CONTINUED ON NEXT PAGE 05/02/19 0538 [place] [address] Olman Will M.D. Material Clerk Laboratory INQUIRY Report SPEC: [id number] PATIENT: TANIA SMALLS [id number] (Continued) Procedure Result Site URINE CULTURE Final (continued) E COLI ENT FAECAL RX M.I.C. RX M.I.C. ----- --------- ----- --------- EXTD BRD SPCTRM BETA LACTAMASE - TETRACYCLINE R >=16 PENICILLIN G S 4 TRIMETHOPRIM/SULFAMETHOXAZOLE S <=20 AMPICILLIN R >=32 S <=2 ERYTHROMYCIN I 2 GENTAMICIN S <=1 NITROFURANTOIN S <=16 S 32 CEFAZOLIN S 8 LEVOFLOXACIN R >=8 S 2 CIPROFLOXACIN I 2 TOBRAMYCIN S <=1 VANCOMYCIN S 2 CEFTRIAXONE S <=1 CEFTAZIDIME S <=1 AMPICILLIN/SULBACTAM R >=32 PIPERACILLIN/TAZOBACTAM S <=4 AZTREONAM S <=1 ERTAPENEM S <=0.5 MEROPENEM S <=0.25 TIGECYCLINE S <=0.5 LINEZOLID (ZYVOX) S 2 * CEFEPIME S <=1 (5) Diastolic CHF Status: Chronic Response to Treatment: Stable Problem Text: Euvolemic on HD frank 12.5, los 12.5, fur 20 (6) DM2 (diabetes mellitus, type 2) Status: Chronic Response to Treatment: Stable Problem Text: BG 110-130s on HD SSLI (7) SIADH (syndrome of inappropriate ADH production) Status: Chronic Response to Treatment: Stable Problem Text: 05/12 sodium stable 92 Na 138 on NaCL 1 gm BID and 1200 FR Plan/VTE VTE Prophylaxis Ordered?: Yes Plan Pt and Family Services: Other PFS Family Medicine Attending Note: I saw and examined Mr. Smalls, discussed with SATURNINO Denny. Agree with her note as documented. Jack had extensive conversation with the patient and his daughter today. When I saw him only the patient was present. He reports he's proud of the fact that he was able to walk with physical therapy a little bit today. He continues to insist that he does not want to return to the hospital unless it is absolutely necessary. We should look at changing his most form to reflect at least this wish. There is ongoing discussion within the family about his advanced directives and whether palliative care hospice would be more appropriate. From an outside perspective, given his frequent hospitalization and his desire to not return it seems likely that he would decompensate, although not certain from what condition, within the next 6 months. I do believe hospice is appropriate if that is what he decides he wants and they will accept him. 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, 24H, [facility] Vital Signs/I&O Vital Signs Date Time Temp Pulse Resp B/P (MAP) Pulse Ox O2 Delivery O2 Flow Rate FiO2 05/14/19 08:58 148/83 05/14/19 06:00 97.2 106 18 97 05/11/19 03:26 Room Air I&O- Last 24 Hours up to 6 AM 05/14/19 06:00 Intake Total 1080 ml Output Total 1800 ml Balance -720 ml Laboratory Data 24H LABS Laboratory Tests 2 05/13/19 11:50: Bedside Glucose (Misc Panel) 244H 05/13/19 16:45: Bedside Glucose (Misc Panel) 301H 05/13/19 20:39: Bedside Glucose (Misc Panel) 259H 05/14/19 05:53: Immature Granulocyte % (Auto) 0.9, White Blood Count 7.0, Red Blood Count 3.53L, Hemoglobin 10.1L, Hematocrit 30.8L, Mean Corpuscular Volume 87.3, Mean Corpuscular Hemoglobin 28.6, Mean Corpuscular Hemoglobin Concent 32.8, Red Cell Distribution Width 15.4H, Platelet Count 292, Neutrophils (%) (Auto) 52.7, Lymphocytes (%) (Auto) 36.4, Monocytes (%) (Auto) 7.7H, Eosinophils (%) (Auto) 2.0, Basophils (%) (Auto) 0.3, Neutrophils # (Auto) 3.7, Lymphocytes # (Auto) 2.6, Monocytes # (Auto) 0.5, Eosinophils # (Auto) 0.1, Basophils # (Auto) 0.0, Nucleated Red Blood Cells % (auto) 0.0, Anion Gap 3L, Glomerular Filtration Rate > 60.0, Blood Urea Nitrogen 22H, Creatinine 1.14, Sodium Level 139, Potassium Level 4.5, Chloride Level 106, Carbon Dioxide Level 30, Calcium Level 9.4, Ma gnesium Level 1.4L CBC/BMP Laboratory Tests 05/14/19 05:53 Red Blood Count 3.53 L, Mean Corpuscular Volume 87.3, Mean Corpuscular Hemoglobin 28.6, Mean Corpuscular Hemoglobin Concent 32.8, Red Cell Distribution Width 15.4 H, Neutrophils (%) (Auto) 52.7, Lymphocytes (%) (Auto) 36.4, Monocytes (%) (Auto) 7.7 H, Eosinophils (%) (Auto) 2.0, Basophils (%) (Auto) 0.3, Neutrophils # (Auto) 3.7, Lymphocytes # (Auto) 2.6, Monocytes # (Auto) 0.5, Eosinophils # (Auto) 0.1, Basophils # (Auto) 0.0, Calcium Level 9.4 Microbiology Microbiology 05/05/19 Blood Culture - Final, Complete NO GROWTH AFTER 5 DAYS 05/05/19 Blood Culture - Final, Complete NO GROWTH AFTER 5 DAYS JACK CAMARGO PA-C May 14, 2019 10:46 Fletcher Tapia MD May 14, 2019 17:58
[2019-05-14] MEDS: MAG SULF 1GM/100ML (MAG RUN) 1 GM in APPROPRIATE DILUENT 1 EA IV SCH ×2 (12:30→13:35)
[2019-05-14 14:00] VITALS: BP 143/73
[2019-05-14] MEDS: MIRTAZAPINE 15 MG TAB PO SCH (21:07)
[2019-05-14] MEDS: ATORVASTATIN 20 MG TAB PO SCH (21:08)
[2019-05-14] MEDS: LORATADINE 10 MG TAB PO SCH (21:08)
[2019-05-14] MEDS: SOLIFENACIN 5 MG TAB PO SCH (21:08)
[2019-05-14] MEDS: ACETAMINOPHEN TAB 650MG DOSE (2X325MG) PO PRN (21:09)
[2019-05-14] MEDS: ONDANSETRON 4 MG ORAL DISINTEGRATING TAB (Q0162 PER 1MG) PO PRN (21:31)
[2019-05-14 22:00] VITALS: BP 124/58
[2019-05-15 05:30] LABS: BASO % 0.4 % (0.0-1.0); EOS # 0.2 10^3/uL (0.0-0.5); EOS % 2.5 % (0.0-3.0); HEMATOCRIT 31.7 % (42.0-52.0); HEMOGLOBIN 10.4 g/dl (13.5-17.5); LYMPH # 2.7 10^3/uL (1.5-5.0); LYMPH % 37.4 % (24.0-44.0); MEAN CORPUSCULAR HEMOGLOBIN 28.4 pg (27.0-33.0); MEAN CORPUSCULAR HGB CONC 32.8 g/dl (32.0-36.5); MEAN CORPUSCULAR VOLUME 86.6 fl (80.0-96.0); MONO # 0.6 10^3/uL (0.0-0.8); MONO % 8.1 % (0.0-5.0); NEUTROPHILS # 3.6 10^3/uL (1.5-8.5); PLATELET COUNT, AUTOMATED 287 10^3/uL (150-450); RED BLOOD COUNT 3.66 10^6/uL (4.30-6.10); WHITE BLOOD COUNT 7.1 10^3/uL (4.0-10.0)
[2019-05-15 05:54] LABS: BLOOD UREA NITROGEN 23 MG/DL (7-18); CALCIUM LEVEL 9.5 MG/DL (8.8-10.2); CARBON DIOXIDE LEVEL 30 MEQ/L (21-32); CHLORIDE LEVEL 105 MEQ/L (98-107); CREATININE FOR GFR 1.18 MG/DL (0.70-1.30); GLOMERULAR FILTRATION RATE > 60.0 (>42); GLUCOSE, FASTING 182 MG/DL (70-100); MAGNESIUM LEVEL 1.9 MG/DL (1.8-2.4); POTASSIUM SERUM 4.4 MEQ/L (3.5-5.1); SODIUM LEVEL 139 MEQ/L (136-145)
[2019-05-15 06:00] VITALS: BP 121/76
--- NOTE | 2019-05-15 08:32 | IPNPDOC ---
Subjective Date Seen The patient was seen on 05/15/19. Subjective Chief Complaint/HPI Patient sleeping as I entered the room. He reports to be feeling well this morning Constitutional: Reports: Fatigue; Denies: Chills, Fever Pulmonary: Denies: Cough Cardiovascular: Denies: Chest Pain, Orthopnea, Edema Gastrointestinal: Denies: Nausea, Vomiting, Abdominal Pain Neurological: Reports: Weakness Psych: Reports: Mood Normal Objective Physical Examination General Exam: Positive: Alert, No Acute Distress Neck Exam: Negative: JVD Chest Exam: Positive: Clear to auscultation Heart Exam: Positive: Tachycardic (rhythm regular, rate about 104 while sitting up) Abdomen Exam: Positive: Normal bowel sounds, Soft Extremity Exam: Negative: Edema Neuro Exam: Positive: Normal Speech Psych Exam: Positive: Mental status NL; Negative: Mood NL Assessment /Plan Problems (1) Physical deconditioning Problem Text: 05/15/19: Continue to work with PT 05/14 Pt does cont to work with PT and has been eating better over the weekend. 05/13: may be part of why he is tachycardic while up in chair. Pt has had progressive worsenieng of his condition over the last few months, he would like to meet with Hospice. (2) Diastolic CHF Status: Chronic Response to Treatment: Stable Problem Text: 05/15/19: Remains Euvolemic Euvolemic on HD frank 12.5, los 12.5, fur 20 (3) Indwelling catheter present on admission Status: Chronic Problem Text: 05/15/19: Patient has requested hospice consult as he no longer wishes to be admitted to the hospital. Hospice consult scheduled for tomorrow c recurrent UTI: finished course of abx. 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 04/27 UCX: ROUTINE CULTURE RESULTS URINE CULTURE Final Organism 1 ESCHERICHIA COLI COLONY COUNT >100,000 CFU/ml Organism 2 ENTEROCOCCUS FAECALIS COLONY COUNT >100,000 CFU/ml FULL REPORT IN LAB NOTES (eCW and Medent). CONTINUED ON NEXT PAGE 05/02/[address] [address] Olman Will M.D. [facility] INQUIRY Report -------- SPEC: [id number] PATIENT: TANIA HESS [id number] (Continued) - ------ Procedure Result Site URINE CULTURE Final (continued) E COLI ENT FAECAL RX M.I.C. RX M.I.C. ----- --------- ----- --------- EXTD BRD SPCTRM BETA LACTAMASE - TETRACYCLINE R >=16 PENICILLIN G S 4 TRIMETHOPRIM/SULFAMETHOXAZOLE S <=20 AMPICILLIN R >=32 S <=2 ERYTHROMYCIN I 2 GENTAMICIN S <=1 NITROFURANTOIN S <=16 S 32 CEFAZOLIN S 8 LEVOFLOXACIN R >=8 S 2 CIPROFLOXACIN I 2 TOBRAMYCIN S <=1 VANCOMYCIN S 2 CEFTRIAXONE S <=1 CEFTAZIDIME S <=1 AMPICILLIN/SULBACTAM R >=32 PIPERACILLIN/TAZOBACTAM S <=4 AZTREONAM S <=1 ERTAPENEM S <=0.5 MEROPENEM S <=0.25 TIGECYCLINE S <=0.5 LINEZOLID (ZYVOX) S 2 * CEFEPIME S <=1 (4) DM2 (diabetes mellitus, type 2) Status: Chronic Response to Treatment: Stable Problem Text: BG 110-130s on HD SSLI (5) SIADH (syndrome of inappropriate ADH production) Status: Chronic Response to Treatment: Stable Problem Text: 05/15/19: Remains stable 05/12 sodium stable 05/07 Na 138 on NaCL 1 gm BID and 1200 FR (6) Gastroenteritis Status: Resolved Response to Treatment: Improving Problem Text: 05/11 symptoms resolving 05/09/19: continues with some residual abdominal discomfort and nausea. 05/07/19: US: normal gallbladder, fatty liver. Symptoms slowly improving. Continue with anti-emetic prn. 05/07 AF. WBC back to baseline at 7.7 (12.3) 05/07 RUQ US normal 05/05 CT AP: Findings are suspicious for proctocolitis. Gastrointestinal findings and recommendations discussed above in detail. Indeterminate appearance of the gallbladder. If there are symptoms, consider ultrasound. Any possibility for urinary tract infection/cystitis to be correlated with urinalysis and culture. Enlarged prostate. Clinical correlation and followup is advised. 12 cm anterior abdominal wall subcutaneous fluid collection again noted inseparable from an anterior abdominal wall mesh repair. Infection cannot be excluded. 05/05 CT head, CXR NAD (7) Toxic metabolic encephalopathy Status: Resolved Response to Treatment: Improving Problem Text: as per GE 05/05 BCX2 NG Plan/VTE VTE Prophylaxis Ordered?: Yes Plan Pt and Family Services: Other PFS VS, I&O, 24H, Fishbone Vital Signs/I&O Vital Signs Date Time Temp Pulse Resp B/P (MAP) Pulse Ox O2 Delivery O2 Flow Rate FiO2 05/15/19 06:00 97.4 106 18 121/76 (91) 99 05/11/19 03:26 Room Air I&O- Last 24 Hours up to 6 AM 05/15/19 06:00 Intake Total 880 ml Output Total 2050 ml Balance -1170 ml Laboratory Data 24H LABS Laboratory Tests 2 05/14/19 20:44: Bedside Glucose (Misc Panel) 161H 05/15/19 05:19: Immature Granulocyte % (Auto) 0.6, White Blood Count 7.1, Red Blood Count 3.66L, Hemoglobin 10.4L, Hematocrit 31.7L, Mean Corpuscular Volume 86.6, Mean Corpuscular Hemoglobin 28.4, Mean Corpuscular Hemoglobin Concent 32.8, Red Cell Distribution Width 15.4H, Platelet Count 287, Neutrophils (%) (Auto) 51.0, Lymphocytes (%) (Auto) 37.4, Monocytes (%) (Auto) 8.1H, Eosinophils (%) (Auto) 2.5, Basophils (%) (Auto) 0.4, Neutrophils # (Auto) 3.6, Lymphocytes # (Auto) 2.7, Monocytes # (Auto) 0.6, Eosinophils # (Auto) 0.2, Basophils # (Auto) 0.0, Nucleated Red Blood Cells % (auto) 0.0, Anion Gap 4L, Glomerular Filtration Rate > 60.0, Blood Urea Nitrogen 23H, Creatinine 1.18, Sodium Level 139, Potassium Level 4.4, Chloride Level 105, Carbon Dioxide Level 30, Calcium Level 9.5, Magnesium Level 1.9 CBC/BMP Laboratory Tests 05/15/19 05:19 Red Blood Count 3.66 L, Mean Corpuscular Volume 86.6, Mean Corpuscular Hemoglobin 28.4, Mean Corpuscular Hemoglobin Concent 32.8, Red Cell Distribution Width 15.4 H, Neutrophils (%) (Auto) 51.0, Lymphocytes (%) (Auto) 37.4, Monocytes (%) (Auto) 8.1 H, Eosinophils (%) (Auto) 2.5, Basophils (%) (Auto) 0.4, Neutrophils # (Auto) 3.6, Lymphocytes # (Auto) 2.7, Monocytes # (Auto) 0.6, Eosinophils # (Auto) 0.2, Basophils # (Auto) 0.0, Calcium Level 9.5 Microbiology Microbiology 05/05/19 Blood Culture - Final, Complete NO GROWTH AFTER 5 DAYS 8/31/19 Blood Culture - Final, Complete NO GROWTH AFTER 5 DAYS JOHN PARKER ORTHOPEDIC ASSISTANT May 15, 2019 08:32
[2019-05-15] MEDS: HumaLOG INSULIN (NovoLOG) PER UNIT SC SCH ×4 (08:54→20:37)
[2019-05-15] MEDS: APIXABAN 2.5 MG TAB (ELIQUIS) PO SCH ×2 (08:55→20:35)
[2019-05-15] MEDS: MAGNESIUM OXIDE 400 MG TAB (MAG-OX) PO SCH ×2 (08:55→20:35)
[2019-05-15] MEDS: POTASSIUM CHLORIDE 10 MEQ SR TABLET PO SCH ×2 (08:55→20:35)
[2019-05-15] MEDS: LACTOBACILLUS ACIDOPHILUS CAP (BACID) PO SCH ×2 (08:55→20:36)
[2019-05-15] MEDS: PANTOPRAZOLE 40MG TAB (PROTONIX) PO SCH ×2 (08:55→20:36)
[2019-05-15] MEDS: FENOFIBRATE 145 MG TAB (TRICOR) PO SCH (08:55)
[2019-05-15] MEDS: SPIRONOLACTONE 12.5MG PER 1/2 TABLET PO SCH (08:55)
[2019-05-15] MEDS: CEPHALEXIN 500 MG CAP PO SCH ×2 (08:55→20:36)
[2019-05-15] MEDS: SODIUM CHLORIDE 1 GM TAB PO SCH ×2 (08:55→20:36)
[2019-05-15] MEDS: FUROSEMIDE 20 MG TAB PO SCH (08:55)
[2019-05-15] MEDS: LOSARTAN 25 MG TAB PO SCH (08:56)
[2019-05-15] MEDS: NYSTATIN 100,000 UNITS/GM TOPICAL PWD 15 GM TOP SCH ×2 (08:56→20:37)
[2019-05-15] MEDS: ONDANSETRON 4 MG ORAL DISINTEGRATING TAB (Q0162 PER 1MG) PO PRN ×2 (08:59→20:37)
[2019-05-15 14:00] VITALS: BP 119/62
[2019-05-15] MEDS: MIRTAZAPINE 15 MG TAB PO SCH (20:35)
[2019-05-15] MEDS: LORATADINE 10 MG TAB PO SCH (20:36)
[2019-05-15] MEDS: ATORVASTATIN 20 MG TAB PO SCH (20:36)
[2019-05-15] MEDS: SOLIFENACIN 5 MG TAB PO SCH (20:36)
[2019-05-15 22:00] VITALS: BP 116/55
[2019-05-16 06:00] VITALS: BP 131/59
[2019-05-16] MEDS: HumaLOG INSULIN (NovoLOG) PER UNIT SC SCH ×4 (08:29→22:00)
[2019-05-16 08:30] VITALS: BP 132/69
[2019-05-16] MEDS: ONDANSETRON 4 MG ORAL DISINTEGRATING TAB (Q0162 PER 1MG) PO PRN (10:17)
[2019-05-16] MEDS: POTASSIUM CHLORIDE 10 MEQ SR TABLET PO SCH ×2 (10:18→21:59)
[2019-05-16] MEDS: CEPHALEXIN 500 MG CAP PO SCH ×2 (10:18→21:58)
[2019-05-16] MEDS: FUROSEMIDE 20 MG TAB PO SCH (10:19)
[2019-05-16] MEDS: LACTOBACILLUS ACIDOPHILUS CAP (BACID) PO SCH ×2 (10:19→21:59)
[2019-05-16] MEDS: FENOFIBRATE 145 MG TAB (TRICOR) PO SCH (10:19)
[2019-05-16] MEDS: PANTOPRAZOLE 40MG TAB (PROTONIX) PO SCH ×2 (10:20→21:58)
[2019-05-16] MEDS: MAGNESIUM OXIDE 400 MG TAB (MAG-OX) PO SCH ×2 (10:20→21:59)
[2019-05-16] MEDS: SPIRONOLACTONE 12.5MG PER 1/2 TABLET PO SCH (10:20)
[2019-05-16] MEDS: APIXABAN 2.5 MG TAB (ELIQUIS) PO SCH ×2 (10:20→21:58)
[2019-05-16] MEDS: SODIUM CHLORIDE 1 GM TAB PO SCH ×2 (10:21→21:59)
[2019-05-16] MEDS: LOSARTAN 25 MG TAB PO SCH (10:23)
[2019-05-16] MEDS: NYSTATIN 100,000 UNITS/GM TOPICAL PWD 15 GM TOP SCH ×2 (10:24→22:00)
--- NOTE | 2019-05-16 10:29 | IPNPDOC ---
Subjective Date Seen The patient was seen on 05/16/19. Subjective Chief Complaint/HPI Appetite poor "I'm just not hungry" Otherwise, he thinks he is feeling stronger today Constitutional: Denies: Chills, Fever Pulmonary: Denies: Dyspnea, Cough Cardiovascular: Denies: Chest Pain, Palpitations, Orthopnea Gastrointestinal: Denies: Nausea, Vomiting, Abdominal Pain, Diarrhea, Constipation Objective Physical Examination General Exam: Positive: Alert, No Acute Distress Neck Exam: Negative: JVD Chest Exam: Positive: Clear to auscultation Heart Exam: Positive: Rate Normal Abdomen Exam: Positive: Normal bowel sounds, Soft Extremity Exam: Negative: Edema Neuro Exam: Positive: Normal Speech Psych Exam: Positive: Mental status NL; Negative: Mood NL Assessment /Plan Problems (1) Physical deconditioning Problem Text: 05/16 - Cont. PT 05/15/19: Continue to work with PT 05/14 Pt does cont to work with PT and has been eating better over the weekend. 05/13: may be part of why he is tachycardic while up in chair. Pt has had progressive worsenieng of his condition over the last few months, he would like to meet with Hospice. (2) Indwelling catheter present on admission Status: Chronic Problem Text: 05/16 - h/O Multiple admission fro recurrent UTIs requiring IV abx. Patient has requested hospice consult as he no longer wishes to be admitted to the hospital. Hospice consult scheduled for today Remains on Keflex since admission - Was on this prior to admission (d/W attending if we are planning to stop this or continue some px abx going forward) c hx of recurrent UTI with chronic indwelling Nuñez catheter. 04/27 UCX: ROUTINE CULTURE RESULTS URINE CULTURE Final Organism 1 ESCHERICHIA COLI COLONY COUNT >100,000 CFU/ml Organism 2 ENTEROCOCCUS FAECALIS COLONY COUNT >100,000 CFU/ml FULL REPORT IN LAB NOTES (eCW and Medent). CONTINUED ON NEXT PAGE 05/02/[address] [address] Olman Will M.D. Law [facility] INQUIRY Report SPEC: [id number] PATIENT: TANIA HESS [id number] ( Continued) Procedure Result Site URINE CULTURE Final (continued) E COLI ENT FAECAL RX M.I.C. RX M.I.C. ----- --------- ----- --------- EXTD BRD SPCTRM BETA LACTAMASE - TETRACYCLINE R >=16 PENICILLIN G S 4 TRIMETHOPRIM/SULFAMETHOXAZOLE S <=20 AMPICILLIN R >=32 S <=2 ERYTHROMYCIN I 2 GENTAMICIN S <=1 NITROFURANTOIN S <=16 S 32 CEFAZOLIN S 8 LEVOFLOXACIN R >=8 S 2 CIPROFLOXACIN I 2 TOBRAMYCIN S <=1 VANCOMYCIN S 2 CEFTRIAXONE S <=1 CEFTAZIDIME S <=1 AMPICILLIN/SULBACTAM R >=32 PIPERACILLIN/TAZOBACTAM S <=4 AZTREONAM S <=1 ERTAPENEM S <=0.5 MEROPENEM S <=0.25 TIGECYCLINE S <=0.5 LINEZOLID (ZYVOX) S 2 * CEFEPIME S <=1 (3) Diastolic CHF Status: Chronic Response to Treatment: Stable Problem Text: 05/15/19: Remains Euvolemic Euvolemic on HD frank 12.5, los 12.5, fur 20 (4) DM2 (diabetes mellitus, type 2) Status: Chronic Response to Treatment: Stable Problem Text: BG 110-130s on HD SSLI (5) SIADH (syndrome of inappropriate ADH production) Status: Chronic Response to Treatment: Stable Problem Text: 05/15/19: Remains stable 05/12 sodium stable 05/07 Na 138 on NaCL 1 gm BID and 1200 FR (6) Gastroenteritis Status: Resolved Response to Treatment: Improving Problem Text: 05/11 symptoms resolving 05/09/19: continues with some residual abdominal discomfort and nausea. 05/07/19: US: normal gallbladder, fatty liver. Symptoms slowly improving. Continue with anti-emetic prn. 05/07 AF. WBC back to baseline at 7.7 (12.3) 05/07 RUQ US normal 05/05 CT AP: Findings are suspicious for proctocolitis. Gastrointestinal findings and recommendations discussed above in detail. Indeterminate appearance of the gallbladder. If there are symptoms, consider ultrasound. Any possibility for urinary tract infection/cystitis to be correlated with urinalysis and culture. Enlarged prostate. Clinical correlation and followup is advised. 12 cm anterior abdominal wall subcutaneous fluid collection again noted inseparable from an anterior abdominal wall mesh repair. Infection cannot be excluded. 05/05 CT head, CXR NAD (7) Toxic metabolic encephalopathy Status: Resolved Response to Treatment: Improving Problem Text: as per GE 05/05 BCX2 NG Plan/VTE VTE Prophylaxis Ordered?: Yes (Eliquis) Plan Pt and Family Services: Other PFS VS, I&O, 24H, Fishbone Vital Signs/I&O Vital Signs Date Time Temp Pulse Resp B/P (MAP) Pulse Ox O2 Delivery O2 Flow Rate FiO2 05/16/19 08:30 97.8 107 20 132/69 (90) 96 05/11/19 03:26 Room Air I&O- Last 24 Hours up to 6 AM 05/16/19 06:00 Intake Total 690 ml Output Total 1550 ml Balance -860 ml Laboratory Data 24H LABS Laboratory Tests 2 05/15/19 12:07: Bedside Glucose (Misc Panel) 175H 05/15/19 17:05: Bedside Glucose (Misc Panel) 267H 05/15/19 20:37: Bedside Glucose (Misc Panel) 117H 05/16/19 07:02: Bedside Glucose (Misc Panel) 157H BYRON COLEY PA-C May 16, 2019 10:29
[2019-05-16 14:15] VITALS: BP 119/66
[2019-05-16] MEDS: LORATADINE 10 MG TAB PO SCH (21:58)
[2019-05-16] MEDS: SOLIFENACIN 5 MG TAB PO SCH (21:58)
[2019-05-16] MEDS: MIRTAZAPINE 15 MG TAB PO SCH (21:59)
[2019-05-16] MEDS: ATORVASTATIN 20 MG TAB PO SCH (21:59)
[2019-05-16 22:00] VITALS: BP 109/66
[2019-05-17 06:00] VITALS: BP 119/65
[2019-05-17] MEDS: SPIRONOLACTONE 12.5MG PER 1/2 TABLET PO SCH (08:11)
[2019-05-17] MEDS: CEPHALEXIN 500 MG CAP PO SCH ×2 (08:11→22:05)
[2019-05-17] MEDS: LACTOBACILLUS ACIDOPHILUS CAP (BACID) PO SCH ×2 (08:11→22:07)
[2019-05-17] MEDS: APIXABAN 2.5 MG TAB (ELIQUIS) PO SCH ×2 (08:11→22:07)
[2019-05-17] MEDS: HumaLOG INSULIN (NovoLOG) PER UNIT SC SCH ×4 (08:11→21:00)
[2019-05-17] MEDS: LOSARTAN 25 MG TAB PO SCH (08:12)
[2019-05-17] MEDS: FENOFIBRATE 145 MG TAB (TRICOR) PO SCH (08:12)
[2019-05-17] MEDS: PANTOPRAZOLE 40MG TAB (PROTONIX) PO SCH ×2 (08:12→22:06)
[2019-05-17] MEDS: SODIUM CHLORIDE 1 GM TAB PO SCH ×2 (08:12→22:05)
[2019-05-17] MEDS: MAGNESIUM OXIDE 400 MG TAB (MAG-OX) PO SCH ×2 (08:12→22:06)
[2019-05-17] MEDS: POTASSIUM CHLORIDE 10 MEQ SR TABLET PO SCH ×2 (08:13→22:06)
[2019-05-17] MEDS: ONDANSETRON 4 MG ORAL DISINTEGRATING TAB (Q0162 PER 1MG) PO PRN ×3 (08:13→22:13)
[2019-05-17] MEDS: NYSTATIN 100,000 UNITS/GM TOPICAL PWD 15 GM TOP SCH ×2 (08:13→22:07)
[2019-05-17] MEDS: FUROSEMIDE 20 MG TAB PO SCH (08:13)
[2019-05-17] MEDS ORDERED: MIRALAX *UNIT DOSE* 17GM PACKET PO PRN (11:00)
[2019-05-17 14:00] VITALS: BP 100/60
--- NOTE | 2019-05-17 21:06 | DSES ---
DATE OF ADMISSION: 05/05/2019 DATE OF DISCHARGE: DATE OF INTERMEDIATE FACILITY (SNF): 05/17/2019 PRIMARY CARE PROVIDER (PCP): Dr. Leo Schreiber ATTENDING TODAY: Dr. Leo Schreiber HISTORY: This is a 73-year-old male patient who presented to [facility] Emergency Room after becoming altered at home. He has had recurrent hospitalizations throughout the course of this summer, was discharged 3 days prior to his current admission, where he was found to have altered mental status secondary to hypoglycemia. The patient was admitted to the hospital for altered mental status. He underwent a chest x-ray and head CT scan, which were noncontributory. Urinalysis was positive, although he was currently being treated for a urinary tract infection with Keflex as an outpatient and this was continued on admission. During his hospitalization, he has remained medically stable. He developed loose stools, which have subsequently resolved. CT scan of the abdomen was suspicious for proctocolitis. He had blood cultures that were negative times two. Continued on cephalexin orally for a total of 10 days during his hospitalization. He was seen by physical therapy for rehabilitation. During his hospitalization, the patient started discussing the fact that he would not want to come back to the hospital any further. We began discussions with the patient and his family, primarily his daughter Priscilla in regards to comfort measures. As a result of this, they met with hospice yesterday, 05/16/2019. At this point, the patient is undecided what organization he would like to go home with, although he does consistently state that he would like to go home with the intention of not returning to the hospital. We have agreed that the patient will plan to return home when his family is physically capable of providing 24-care to him. At this point, will transition him to alternate level of care (ALC) status until this has been coordinated. He can continue during that time to contemplate whether he will continue with public health or whether he will enroll in hospice. He will continue to receive nursing care from [facility] and his daughter Priscilla has been in contact with them with a request for additional nursing services at this time. The patient continues to adamantly state that he wishes to return home without the option of returning back to the hospital, though he does not want any medication changes made at this time. DISCHARGE DIAGNOSES: 1. Physical deconditioning. 2. Chronic Indwelling Nuñez catheter with recurrent urinary tract infections. 3. Chronic diastolic congestive heart failure. 4. Diabetes mellitus, type 2. 5. Syndrome of inappropriate antidiuretic hormone (ADH) production. 6. Gastroenteritis. 7. Toxic metabolic encephalopathy. Discharge medications at time of discharge from the hospital will be dictated as well as the plan.
[2019-05-17 22:00] VITALS: BP 112/57
[2019-05-17] MEDS: SOLIFENACIN 5 MG TAB PO SCH (22:06)
[2019-05-17] MEDS: LORATADINE 10 MG TAB PO SCH (22:06)
[2019-05-17] MEDS: MIRTAZAPINE 15 MG TAB PO SCH (22:06)
[2019-05-17] MEDS: ATORVASTATIN 20 MG TAB PO SCH (22:07)
[2019-05-17] MEDS: ACETAMINOPHEN TAB 650MG DOSE (2X325MG) PO PRN (22:07)
[2019-05-18 06:00] VITALS: BP 110/56
[2019-05-18] MEDS: HumaLOG INSULIN (NovoLOG) PER UNIT SC SCH ×4 (08:09→20:19)
[2019-05-18] MEDS: FENOFIBRATE 145 MG TAB (TRICOR) PO SCH (08:09)
[2019-05-18] MEDS: LACTOBACILLUS ACIDOPHILUS CAP (BACID) PO SCH ×2 (08:09→20:15)
[2019-05-18] MEDS: SODIUM CHLORIDE 1 GM TAB PO SCH ×2 (08:10→20:15)
[2019-05-18] MEDS: PANTOPRAZOLE 40MG TAB (PROTONIX) PO SCH ×2 (08:10→20:16)
[2019-05-18] MEDS: CEPHALEXIN 500 MG CAP PO SCH ×2 (08:11→20:16)
[2019-05-18] MEDS: FUROSEMIDE 20 MG TAB PO SCH (08:11)
[2019-05-18] MEDS: APIXABAN 2.5 MG TAB (ELIQUIS) PO SCH ×2 (08:11→20:15)
[2019-05-18] MEDS: MAGNESIUM OXIDE 400 MG TAB (MAG-OX) PO SCH ×2 (08:11→20:16)
[2019-05-18] MEDS: POTASSIUM CHLORIDE 10 MEQ SR TABLET PO SCH ×2 (08:11→20:15)
[2019-05-18] MEDS: LOSARTAN 25 MG TAB PO SCH (08:12)
[2019-05-18] MEDS: SPIRONOLACTONE 12.5MG PER 1/2 TABLET PO SCH (08:12)
[2019-05-18] MEDS: NYSTATIN 100,000 UNITS/GM TOPICAL PWD 15 GM TOP SCH ×2 (08:13→20:18)
[2019-05-18] MEDS: ONDANSETRON 4 MG ORAL DISINTEGRATING TAB (Q0162 PER 1MG) PO PRN (16:56)
[2019-05-18] MEDS: ACETAMINOPHEN TAB 650MG DOSE (2X325MG) PO PRN (17:33)
[2019-05-18] MEDS: SOLIFENACIN 5 MG TAB PO SCH (20:15)
[2019-05-18] MEDS: ATORVASTATIN 20 MG TAB PO SCH (20:15)
[2019-05-18] MEDS: MIRTAZAPINE 15 MG TAB PO SCH (20:16)
[2019-05-18] MEDS: LORATADINE 10 MG TAB PO SCH (20:17)
[2019-05-19] MEDS: HumaLOG INSULIN (NovoLOG) PER UNIT SC SCH ×4 (09:13→21:00)
[2019-05-19] MEDS: MAGNESIUM OXIDE 400 MG TAB (MAG-OX) PO SCH ×2 (09:14→20:15)
[2019-05-19] MEDS: PANTOPRAZOLE 40MG TAB (PROTONIX) PO SCH ×2 (09:14→20:15)
[2019-05-19] MEDS: FENOFIBRATE 145 MG TAB (TRICOR) PO SCH (09:14)
[2019-05-19] MEDS: FUROSEMIDE 20 MG TAB PO SCH (09:14)
[2019-05-19] MEDS: SPIRONOLACTONE 12.5MG PER 1/2 TABLET PO SCH (09:14)
[2019-05-19] MEDS: LACTOBACILLUS ACIDOPHILUS CAP (BACID) PO SCH ×2 (09:14→20:14)
[2019-05-19] MEDS: POTASSIUM CHLORIDE 10 MEQ SR TABLET PO SCH ×2 (09:14→20:15)
[2019-05-19] MEDS: CIPROFLOXACIN 250 MG TAB PO SCH (09:14)
[2019-05-19] MEDS: LOSARTAN 25 MG TAB PO SCH (09:15)
[2019-05-19] MEDS: APIXABAN 2.5 MG TAB (ELIQUIS) PO SCH ×2 (09:15→20:14)
[2019-05-19] MEDS: NYSTATIN 100,000 UNITS/GM TOPICAL PWD 15 GM TOP SCH ×2 (09:15→20:16)
[2019-05-19] MEDS: CEPHALEXIN 500 MG CAP PO SCH ×2 (09:15→20:14)
[2019-05-19] MEDS: SODIUM CHLORIDE 1 GM TAB PO SCH ×2 (09:16→20:13)
[2019-05-19] MEDS: ATORVASTATIN 20 MG TAB PO SCH (20:13)
[2019-05-19] MEDS: MIRTAZAPINE 15 MG TAB PO SCH (20:14)
[2019-05-19] MEDS: LORATADINE 10 MG TAB PO SCH (20:14)
[2019-05-19] MEDS: SOLIFENACIN 5 MG TAB PO SCH (20:14)
[2019-05-19] MEDS: ACETAMINOPHEN TAB 650MG DOSE (2X325MG) PO PRN (20:16)
[2019-05-20] MEDS: HumaLOG INSULIN (NovoLOG) PER UNIT SC SCH ×2 (09:16→12:04)
[2019-05-20] MEDS: FENOFIBRATE 145 MG TAB (TRICOR) PO SCH (09:16)
[2019-05-20] MEDS: LACTOBACILLUS ACIDOPHILUS CAP (BACID) PO SCH (09:16)
[2019-05-20] MEDS: SPIRONOLACTONE 12.5MG PER 1/2 TABLET PO SCH (09:16)
[2019-05-20] MEDS: SODIUM CHLORIDE 1 GM TAB PO SCH (09:16)
[2019-05-20] MEDS: CIPROFLOXACIN 250 MG TAB PO SCH (09:17)
[2019-05-20] MEDS: APIXABAN 2.5 MG TAB (ELIQUIS) PO SCH (09:17)
[2019-05-20] MEDS: POTASSIUM CHLORIDE 10 MEQ SR TABLET PO SCH (09:17)
[2019-05-20] MEDS: MAGNESIUM OXIDE 400 MG TAB (MAG-OX) PO SCH (09:17)
[2019-05-20] MEDS: PANTOPRAZOLE 40MG TAB (PROTONIX) PO SCH (09:17)
[2019-05-20] MEDS: FUROSEMIDE 20 MG TAB PO SCH (09:17)
[2019-05-20] MEDS: CEPHALEXIN 500 MG CAP PO SCH (09:17)
[2019-05-20 09:18] VITALS: BP 120/65
[2019-05-20] MEDS: NYSTATIN 100,000 UNITS/GM TOPICAL PWD 15 GM TOP SCH (09:18)
[2019-05-20] MEDS: LOSARTAN 25 MG TAB PO SCH (09:18)
[2019-05-20] MEDS ORDERED: MAG400TA PO (11:40)
[2019-05-20] MEDS ORDERED: REME15TA PO (11:40)
== END 2019-05-20 14:18 | disposition home health service (06) | DRG 92 ==
LOC: M ED 16:43 → EDBD 16:43 → M ED INP 21:03 → M MSPAV 22:15
PROVIDERS: ADMIT Internal Medicine Nephrology; ATTEND Family Medicine
DX: G92 Toxic encephalopathy (principal); I50.32 Chronic diastolic (congestive) heart failure; N39.0 Urinary tract infection, site not specified; E22.2 Syndrome of inappropriate secretion of antidiuretic hormone; E11.649 Type 2 diabetes mellitus with hypoglycemia without coma; Z51.5 Encounter for palliative care; K52.9 Noninfective gastroenteritis and colitis, unspecified; Z66 Do not resuscitate; N40.0 Benign prostatic hyperplasia without lower urinary tract symptoms; I48.91 Unspecified atrial fibrillation; G47.33 Obstructive sleep apnea (adult) (pediatric); E78.5 Hyperlipidemia, unspecified; Z95.0 Presence of cardiac pacemaker; Z96.652 Presence of left artificial knee joint; I11.0 Hypertensive heart disease with heart failure; M45.9 Ankylosing spondylitis of unspecified sites in spine

== ENCOUNTER → 2019-12-26 | Outpatient (REF) | payer MEDICARE, MEDICAID, OTHER ==
[~2019-12-26] MED LIST changes: -FENO145T13 PO; +FENO145T7 PO; +REME15TA PO
== END ==
LOC: M LAB REF 14:54
PROVIDERS: ATTEND Podiatrist
DX: M79.671 Pain in right foot (principal)

== ENCOUNTER → 2020-01-09 | Outpatient (REF) | payer MEDICARE, MEDICAID ==
[~2020-01-09] MED LIST changes: -CLOT1CRE2 TOP; +CLOT1CRE56 TOP; +GABA-282 PO; -GABA-843 PO; -MAG400TA PO; +MAGN400T35 PO; +MIRT-62 PO; +PANT40TA29 PO; -PANT40TA3 PO; -REME15TA PO; +SIME80CH5 PO; -SIME80TA PO
[2020-01-09 18:26] LABS: HEMATOCRIT 46.1 % (42.0-52.0); HEMOGLOBIN 15.7 g/dl (13.5-17.5); MEAN CORPUSCULAR HGB CONC 34.1 g/dl (32.0-36.5); PLATELET COUNT, AUTOMATED 190 10^3/uL (150-450); RED BLOOD COUNT 5.24 10^6/uL (4.30-6.10); WHITE BLOOD COUNT 3.9 10^3/uL (4.0-10.0)
[2020-01-09 18:32] LABS: ALBUMIN 3.5 GM/DL (3.2-5.2); ALT/SGPT 19 U/L (12-78); BILIRUBIN,TOTAL 0.6 MG/DL (0.2-1.0); BLOOD UREA NITROGEN 38 MG/DL (7-18); CALCIUM LEVEL 10.3 MG/DL (8.8-10.2); CARBON DIOXIDE LEVEL 33 MEQ/L (21-32); CHLORIDE LEVEL 93 MEQ/L (98-107); CHOLESTEROL LEVEL 144 MG/DL (<200); CREATININE FOR GFR 0.92 MG/DL (0.70-1.30); GLOMERULAR FILTRATION RATE > 60.0 (>42); GLUCOSE, FASTING 238 MG/DL (70-100); HDL CHOLESTEROL 72 MG/DL (>40); LDL CHOLESTEROL 50 MG/DL (<100); NON-HDL-C 72 MG/DL; SODIUM LEVEL 131 MEQ/L (136-145); TRIGLYCERIDES LEVEL 111 MG/DL (<150)
[2020-01-09 18:54] LABS: HEMOGLOBIN A1c 7.4 %
== END ==
LOC: M SFHCADAM 11:04
PROVIDERS: ATTEND Family Medicine
DX: I11.0 Hypertensive heart disease with heart failure (principal); E13.29 Other specified diabetes mellitus with other diabetic kidney complication; E78.5 Hyperlipidemia, unspecified; D64.9 Anemia, unspecified
CPT/HCPCS: 80053; 80061; 83036; 85027; G0463